=== PATIENT | female | born 1995 | race Caucasian/White ===

== ENCOUNTER 2024-02-26 14:33 | Outpatient (REF) | payer BC, SELFPAY | END 2024-02-26 14:34 | disposition home or self-care (01) | LOC: LAB 14:33 | PROVIDERS: PCP Obstetrics & Gynecology; Visit Provider Obstetrics & Gynecology | DX: Z01.419 Encounter for gynecological examination (general) (routine) without abnormal findings (principal) | CPT/HCPCS: 87624; G0145 ==

== ENCOUNTER 2024-08-01 06:31 | Outpatient (OUT) | payer BC, SELFPAY ==
--- NOTE | 2024-08-01 | MR_ITS ---
[facility] [id number] Patient Name: PRUDENCIO JARAMILLO MRN: [id number] date: 1995 Sex: F Assigned Patient Location: MRI Current Patient Location: Accession/Order Number: [id number] Exam Date: 08/01/2024 06:45 Report Date: 08/03/2024 08:21 At the request of: BELINDA ROWLAND Procedure: MR knee RT wo con EXAMINATION: MR knee RT wo con HISTORY: Rt Knee Pain ; acute medial knee pain and swelling COMPARISON: No relevant comparison available. TECHNIQUE: A complete multi-planar MRI was performed. FINDINGS: MEDIAL COMPARTMENT MEDIAL MENISCUS: No visible tear or significant degeneration. CARTILAGE: No visible defect. BONES: No marrow pathology, fracture, or significant arthropathy. MCL AND MEDIAL CAPSULE: Normal medial collateral ligament and medial capsule. LATERAL COMPARTMENT LATERAL MENISCUS: No visible tear or significant degeneration. CARTILAGE: No visible defect. BONES: No marrow pathology, fracture, or significant arthropathy. LCL/POSTEROLAT COMPLEX: Normal lateral collateral ligament, fascicles, lateral capsule and ligaments. ANTERIOR COMPARTMENT PATELLA: No marrow pathology, fracture, or significant arthropathy. CARTILAGE: No visible defect. TENDONS: Normal. EFFUSION: None. No synovitis or loose bodies. ACL: Normal appearing ligament. PCL: Normal appearing ligament. MENISCOFEMORAL: Normal meniscofemoral ligaments. OTHER: Negative. MR/MR knee RT wo con IMPRESSION: 1. No appreciable acute abnormality or significant degenerative changes. Electronically authenticated by: ALEE MARTELL Date: 08/03/2024 08:21
--- OUTSIDE RECORDS SUMMARY | 2024-08-01 06:34 | XMS_ITS | CCD ---
Author Organization [facility] [place] [facility] Providers Care Electrical Contacts Adjuster Name Role Phone Shanique Loomis Primary Care Physician Unavail able NARCISA ., DR MAGAÑA Admitting Unavailable NARCISA ., DR MAGAÑA Attending Unavailable REQUEST, DR NONE LISTED Primary Care Unavaila ble NARCISA ., DR MAGAÑA Consulting Unavailable ZIEBER, DR ALEE Badillo Consulting Unavailable NARCISA ., DR MAGAÑA Consulting Unavailable REQUEST, DR NONE LISTED Primary Care Unavaila ble NARCISA ., DR MAGAÑA Attending Unavailable NARCISA ., DR MAGAÑA Admitting Unavailable NARCISA ., DR MAGAÑA Admitting Unavailable NARCISA ., DR MAGAÑA Attending Unavailable REQUEST, DR NONE LISTED Primary Care Unavaila ble NARCISA ., DR MAGAÑA Consulting Unavailable ZIEBER, DR ALEE Badillo Consulting Unavailable KARASIK ., DR MOROCHO Consulting Unavailabl e REQUEST, DR NONE LISTED Primary Care Unavaila EUSEBIO Bhandari Attending Unavailable EUSEBIO SARABIA Admitting Unavailable ADOLFO, DR KIRSTEN Alvarado Consulting Unavailable NARCISA ., DR MAGAÑA Consulting Unavailable EUSEBIO SARABIA Consulting Unavailable TRIANA, LEA Consulting Unavailable REQUEST, DR NONE LISTED Primary Care Unavaila ble NARCISA ., DR MAGAÑA Attending Unavailable NARCISA ., DR MAGAÑA Admitting Unavailable NARCISA ., DR MAGAÑA Consulting Unavailable NARCISA ., DR MAGAÑA Attending Unavailable NARCISA ., DR MAGAÑA Admitting Unavailable REQUEST, DR NONE LISTED Primary Care Unavaila ble EMILIANO TARANGO Consulting Unavailable PAY ., DR NAVARRO Consulting Unavailable PAY ., DR NAVARRO Attending Unavailable PAY ., DR NAVARRO Admitting Unavailable REQUEST, DR NONE LISTED Primary Care Unavaila ble NARCISA ., DR MAGAÑA Admitting Unavailable NARCISA ., DR MAGAÑA Attending Unavailable REQUEST, DR NONE LISTED Primary Care Unavaila ble NARCISA ., DR MAGAÑA Consulting Unavailable NARCISA ., DR MAGAÑA Admitting Unavailable NARCISA ., DR MAGAÑA Attending Unavailable REQUEST, DR NONE LISTED Primary Care Unavaila ble NARCISA ., DR MAGAÑA Consulting Unavailable ZIEBER, DR ALEE Badillo Consulting Unavailable NARCISA ., DR MAGAÑA Admitting Unavailable NARCISA ., DR MAGAÑA Attending Unavailable REQUEST, DR NONE LISTED Primary Care Unavaila ble NARCISA ., DR MAGAÑA Consulting Unavailable NARCISA ., DR MAGAÑA Consulting Unavailable REQUEST, DR NONE LISTED Primary Care Unavaila ble NARCISA ., DR MAGAÑA Attending Unavailable NARCISA ., DR MAGAÑA Admitting Unavailable NARCISA ., DR MAGAÑA Consulting Unavailable REQUEST, DR NONE LISTED Primary Care Unavaila ble NARCISA ., DR MAGAÑA Attending Unavailable NARCISA ., DR MAGAÑA Admitting Unavailable NARCISA ., DR MAGAÑA Consulting Unavailable REQUEST, DR NONE LISTED Primary Care Unavaila ble NARCISA ., DR MAGAÑA Attending Unavailable NARCISA ., DR MAGAÑA Admitting Unavailable GRETA II, VINCE Consulting Unavailable FILUTZE, PADMINI Consulting Unavailable REQUEST, DR NONE LISTED Primary Care Unavaila ble HAY ., DR JASMINE Admitting Unavailable HAY ., DR JASMINE Attending Unavailable HAY ., DR JASMINE Consulting Unavailable NARCISA ., DR MAGAÑA Procedure Practitioner Unavail able NARCISA ., DR MAGAÑA Consulting Unavailable REQUEST, DR NONE LISTED Primary Care Unavaila ble NARCISA ., DR MAGAÑA Attending Unavailable NARCISA ., DR MAGAÑA Admitting Unavailable LENA, MANNY Consulting Unavailable TRINH, CARRINGTON Consulting Unavailable GEMBUS, MAURI Consulting Unavailable NARCISA ., DR MAGAÑA Admitting Unavailable NARCISA ., DR MAGAÑA Attending Unavailable REQUEST, DR NONE LISTED Primary Care Unavaila ble NARCISA ., DR MAGAÑA Consulting Unavailable NARCISA ., DR MAGAÑA Admitting Unavailable NARCISA ., DR MAGAÑA Attending Unavailable REQUEST, DR NONE LISTED Primary Care Unavaila ble WEST, DR KIRSTEN Alvarado Consulting Unavailable NARCISA ., DR MAGAÑA Consulting Unavailable JAMEL DELGADO Attending Unavailable JAMEL DELGADO Admitting Unavailable REQUEST, NONE LISTED Primary Care Unavaila ble NARCISA ., DR MAGAÑA Admitting Unavailable NARCISA ., DR MAGAÑA Attending Unavailable REQUEST, DR NONE LISTED Primary Care Unavaila ble WEST, DR KIRSTEN Alvarado Consulting Unavailable NARCISA ., DR MAGAÑA Consulting Unavailable Carol Gutierrez Primary Care Physician [facility] 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 Mirza Primary Care Provider KEMI MIRZA Primary Care Unavailable ELSA SCOTT Admitting Unavailable ELSA SCOTT Attending Unavailable IMRZA MCMULLEN Primary Care Unavailable ELIZABETH CRUZ Primary Care Physician Barak Greer Attending Unavailable VLADISLAV, SHANIQUE Primary Care Unavailable ALEXEI SON Attending Unavailable VLADISLAV, SHANIQUE Primary Care Unavailable Madhu Mcnamara Attending Unavailable Jadon SANTANA Attending Unavailable ALEXEI SON Admitting Unavailable ALEXEI SON Attending Unavailable AUTUMN Cruz Primary Care Provider AUTUMN Cruz Attending Provider MARK ROSALES Attending Unavailable Nancy, AUTUMN Johnson Primary Care Provider DAHLIA Alvarado Attending Provider Elizabeth Cruz Attending Unavailable Elizabeth Cruz Admitting Unavailable Elizabeth Cruz Primary Care Unavailable Jessie Alvarado Admitting Unavailable Jessie Alvarado Attending Unavailable Elizabeth Cruz Primary Care Unavailable Allergies Allergy Classification Reported Allergen(s) Allergy Type Date of Onset Reaction(s) Facility (9 sources) Amoxicillin; Translations: [amoxicillin] [facility] Penicillins; Translations: [penicillins] Drug allergy 06-30-2014 [facility] (1 source) Amoxicillin Drug Allergy [facility] (1 source) Penicillin Drug Allergy [facility] (1 source) Amoxicillin Drug Allergy 06-11-2024 [facility] Medications Current Medications Medication Drug Class(es) Dates Sig (Normalized) Sig (Original) acetaminophen 500 mg oral tablet (2 sources) take 1 tablet by mouth every six hours as needed for pain acetaminophen (TYLENOL) 500 MG tablet Take 1 tablet by mouth every 6 hours as needed for Pain 0 Active azithromycin 500 mg oral tablet (2 sources) Macrolide Antimicrobial Start: 12-19-2023 End: 12-24-2023 take 1 tablet by mouth once daily Zithromax 500 mg oral tablet 500 mg = 1 tab(s), Oral, Daily, X 5 day(s), # 5 tab(s), Refills(s) 0, Pharmacy: [facility]/pharmacy #[id number], 155, cm, 12/19/23 12:54:00 EDT, Height/Length Dosing, 127.3, kg, 12/19/23 12:54:00 EDT, Weight Dosing Start Date: 12/19/23 Stop Date: 12/24/23 Status: Ordered cephalexin 500 mg oral capsule (1 source) Cephalosporin Antibacterial Start: 05-06-2022 End: 05-11-2022 take 1 capsule by mouth three times daily Keflex 500 mg Cap 500 mg = 1 cap(s), Oral, TID, X 5 day(s), # 15 cap(s), Refills(s) 0 Start Date: 05/06/22 Stop Date: 05/11/22 Status: Ordered dicyclomine hydrochloride 20 mg oral tablet (2 sources) Anticholinergic Start: 05-18-2023 take 1 tablet by mouth four times daily as needed for pain dicyclomine (BENTYL) 20 MG tablet Take 1 tablet by mouth 4 times daily as needed (abdominal pain) 20 tablet 0 05/18/2023 Active famotidine 20 mg oral tablet (2 sources) Histamine-2 Receptor Antagonist Start: 05-06-2022 take 1 tablet by mouth once daily Pepcid 20 mg Tab 20 mg = 1 tab(s), Oral, Daily, # 14 tab(s), Refills(s) 0 Start Date: 05/06/22 Status: Ordered ibuprofen 800 mg oral tablet (2 sources) Nonsteroidal Anti-inflammatory Drug Start: 03-20-2018 take 1 tablet by mouth every eight hours as needed for pain ibuprofen (ADVIL;MOTRIN) 800 MG tablet Take 1 tablet by mouth every 8 hours as needed for Pain 120 tablet 3 03/20/2018 Active naproxen 500 mg oral tablet (2 sources) Nonsteroidal Anti-inflammatory Drug Start: 06-11-2024 take 500 mg by mouth twice daily Naproxen Active 500 MG PO Twice daily June 11, 2024 12:00am Start: 04-14-2023 take 1 tablet by willie twice daily naproxen 500 mg Tab 500 mg = 1 tab(s), Oral, BID, Take one tab by mouth two times a day, # 14 tab(s), Refills(s) 0, Pharmacy: [facility]/pharmacy #[id number], 155, cm, 04/14/23 13:45:00 EDT, Height/Length Dosing, 120, kg, 04/14/23 13:45:00 EDT, Weight Dosing Start Date: 04/14/23 Status: Ordered [place] (No Known Home Meds) (1 source) Start: 06-11-2024 [place] (No Kn own Home Meds) Active June 11, 2024 12:00am predniSONE 20 mg oral tablet (2 sources) Start: 12-19-2023 End: 12-24-2023 take 2 tablets by mouth once daily predniSONE 20 mg Tab 40 mg = 2 tab(s), Oral, Daily, X 5 day(s), # 10 tab(s), Refills(s) 0, Pharmacy: [facility]/pharmacy #[id number], 155, cm, 12/19/23 12:54:00 EDT, Height/Length Dosing, 127.3, kg, 12/19/23 12:54:00 EDT, Weight Dosing Start Date: 12/19/23 Stop Date: 12/24/23 Status: Ordered Completed/Discontinued Medications Medication Drug Class(es) Dates Sig (Normalized) Sig (Original) aluminum & magnesium hydroxide-simethic one (MAALOX) 30 mL, lidocaine viscous hcl (XYLOCAINE) 5 mL (GI COCKTAIL) (1 source) Start: 05-18-2023 End: 05-18-2023 aluminum & magnesium hydroxide-simethic one (MAALOX) 30 mL, lidocaine viscous hcl (XYLOCAINE) 5 mL (GI COCKTAIL) citalopram 20 mg oral tablet (7 sources) Serotonin Reuptake Inhibitor Start: 10-21-2017 End: 12-04-2023 take 1 tablet by mouth once daily Citalopram (Celexa) 20 mg Tablet Discontinued 20 MG PO Daily September 04, 2018 1:00am December 04, 2023 2:39pm etodolac 400 mg oral tablet (2 sources) Nonsteroidal Anti-inflammatory Drug Start: 05-18-2023 End: 05-24-2023 take 1 tablet by mouth twice daily etodolac (LODINE) 400 MG tablet Take 1 tablet by mouth 2 times daily 14 tablet 0 05/18/2023 05/24/2023 Discontinued (LIST CLEANUP) famotidine (PEPCID) 20 mg in sodium chloride (PF) 0.9 % 10 mL injection (1 source) Start: 05-18-2023 End: 05-18-2023 famotidine (PEPCID) 20 mg in sodium chloride (PF) 0.9 % 10 mL injection ferrous sulfate 325 mg oral tablet (2 sources) Start: 03-13-2018 End: 05-24-2023 take 1 tablet by mouth three times daily at mealtime ferrous sulfate (MARK-JADIEL) 325 (65 Fe) MG tablet Take 1 tablet by mouth 3 times daily (with meals) 90 tablet 0 03/13/2018 05/24/2023 Discontinued (LIST CLEANUP) iopamidol (ISOVUE-300) 61 % injection 70 mL (1 source) Start: 05-18-2023 End: 05-18-2023 iopamidol (ISOVUE-300) 61 % injection 70 mL 1 ml ketorolac tromethamine 30 mg/ml cartridge (1 source) Nonsteroidal Anti-inflammatory Drug, Cyclooxygenase Inhibitor Start: 05-18-2023 End: 05-18-2023 ketorolac (TORADOL) injection 30 mg 1 ml morphine sulfate 4 mg/ml injection (1 source) Opioid Agonist Start: 05-18-2023 End: 05-18-2023 morphine sulfate (PF) injection 4 mg 2 ml ondansetron 2 mg/ml injection (5 sources) Serotonin-3 Receptor Antagonist Start: 05-18-2023 End: 05-18-2023 ondansetron (ZOFRAN) injection 4 mg Start: 05-18-2023 End: 05-24-2023 take 1 tablet by mouth three times daily as needed for nausea ondansetron (ZOFRAN-ODT) 4 MG disintegrating tablet Take 1 tablet by mouth 3 times daily as needed for Nausea or Vomiting 21 tablet 0 05/18/2023 05/24/2023 Discontinued (LIST CLEANUP) Start: 05-06-2022 take 1 tablet by willie th every eight hours as needed for nausea Zofran 4 mg Tab 4 mg = 1 tab(s), Oral, q8hr, PRN Nausea/Vomiting, # 12 tab(s), Refills(s) 0 Start Date: 05/06/22 Status: Ordered sertraline 25 mg oral tablet (4 sources) Serotonin Reuptake Inhibitor Start: 12-04-2023 End: 06-11-2024 take 25 mg by mouth once daily Sertraline Discontinued 25 MG PO Daily December 04, 2023 1:00am June 11, 2024 9:44am 50 ml sodium chloride 9 mg/ml injection (1 source) Start: 05-18-2023 End: 05-18-2023 sodium chloride 0.9 % bolus 1,000 mL Problems Active Problems Problem Classification Problem Date Documented Date Episodic/Chronic Anxiety disorders (9 sources) Anxiety disorder, unspecified; Translations: [Generalized anxiety disorder] Onset: 11-14-2022 12-04-2023 Chronic Biliary tract disease (5 sources) Cholelithiasis without obstruction; Translations: [Calculus of gallbladder without cholecystitis without obstruction] Onset: 05-18-2023 Episodic Conditions associated with dizziness or vertigo (4 sources) Dizziness and giddiness; Translations: [DIZZINESS AND GIDDINESS] Onset: 11-13-2022 Episodic Contraceptive and procreative management (5 sources) Encounter for sterilization; Translations: [ENCOUNTER FOR STERILIZATION] Onset: 11-01-2022 Episodic Diverticulosis and diverticulitis (4 sources) Diverticulitis 12-15-2019 Chronic Female infertility (2 sources) Oligo-ovulation; 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 Menstrual disorders (6 sources) Irregular menstruation, unspecified; Translations: [Oligomenorrhea] Onset: 06-30-2014 Chronic Mood disorders (12 sources) Depressive disorder; Translations: [Major depressive disorder] Onset: 12-28-2023 09-19-2016 Chronic Mood disorders (1 source) Mood disorders; Translations: [DEPRESSION UNSPECIFIED] Onset: 11-14-2022 Nausea and vomiting (2 sources) Nausea and vomiting; Translations: [Nausea with vomiting, unspecified] Onset: 05-06-2022 Episodic Other complications of ; puerperium affecting management of mother (1 source) Obesity complicating childbirth; Translations: [OBESITY COMPLICATING CHILDBIRTH] Onset: 10-03-2022 Chronic Other complications of ; puerperium affecting management of mother (4 sources) Spinal and epidural anesthesia-induced headache during the puerperium; Translations: [SP EPID ANES-IND H/A DUR PUERPERIUM] Onset: 09-22-2022 Episodic Other complications of (5 sources) Maternal care for excessive growth, third trimester, not applicable or unspecified; Translations: [MAT CARE EXCSS FTL GRTH 3RD TRI UNS] Onset: 08-07-2022 Episodic Other female genital disorders (2 sources) Abnormal uterine bleeding; Translations: [Other specified abnormal uterine and vaginal bleeding] 03-20-2018 Chronic Other nervous system disorders (4 sources) Loss of taste 10-11-2020 Episodic Other non-traumatic joint disorders (3 sources) Pain in left knee; Translations: [Pain in joint, lower leg] Onset: 06-11-2024 06-11-2024 Episodic Other nutritional; endocrine; and metabolic disorders (5 sources) Morbid (severe) obesity due to excess calories; Translations: [Morbid obesity] Onset: 10-03-2022 12-04-2023 Chronic Other nutritional; endocrine; and metabolic disorders (7 sources) Morbid obesity; Translations: [Morbid (severe) obesity due to excess calories] Onset: 03-14-2018 03-14-2018 Chronic Other nutritional; endocrine; and metabolic disorders (4 sources) Body mass index 40+ - severely obese; Translations: [Body mass index (BMI) 50.0-59.9, adult] 12-04-2023 Chronic Other nutritional; endocrine; and metabolic disorders (4 sources) Body mass index (BMI) 50.0-59.9, adult; Translations: [Body Mass Index 50.0-59.9, adult] Onset: 12-28-2023 12-04-2023 Chronic Other and delivery including normal (3 sources) Single live ; Translations: [ state, incidental] Onset: 02-24-2022 Episodic Other upper respiratory disease (1 source) Nasal congestion; Translations: [Nasal congestion] Onset: 12-19-2023 Episodic Other upper respiratory disease (2 sources) Congestion of nasal sinus 12-19-2023 Episodic Other upper respiratory infections (7 sources) Acute upper respiratory infection; Translations: [Acute pharyngitis] Onset: 12-19-2023 10-11-2020 Episodic Otitis media and related conditions (3 sources) Otitis media; Translations: [Otitis media, unspecified, right ear] Onset: 12-19-2023 Episodic Previous (3 sources) Maternal care for low transverse scar from previous delivery; Translations: [MAT CARE LW TRANS SCAR PREV C/S DEL] Onset: 09-18-2022 Episodic Residual codes; unclassified (1 source) 39 weeks gestation of ; Translations: [39 WEEKS GESTATION OF ] Onset: 10-03-2022 Episodic Skin and subcutaneous tissue infections (4 sources) Pilonidal cyst 08-15-2017 Episodic Spondylosis; intervertebral disc disorders; other back problems (8 sources) Low back pain; Translations: [Lumbar radiculopathy] 12-01-2019 Episodic Sprains and strains (2 sources) Sprain of wrist; Translations: [Unspecified sprain of unspecified wrist, initial encounter] Onset: 04-14-2023 Episodic Unclassified (1 source) CONTACT W/AND (SUSP) EXPOS COVID-19; Translations: [CONTACT W/AND (SUSP) EXPOS COVID-19] Onset: 11-14-2022 Urinary tract infections (1 source) Urinary tract infectious disease; Translations: [Urinary tract infection, site not specified] Onset: 05-06-2022 Episodic Past or Other Problems Problem Classification Problem Date Documented Date Episodic/Chronic Abdominal pain (2 sources) Epigastric pain; Translations: [Epigastric pain] Onset: 05-06-2022 Episodic Immunizations and screening for infectious disease (1 source) Contact with and (suspected) exposure to infections with a predominantly sexual mode of transmission; Translations: [CONTCT W EXPOS INFECT SEXUAL TRNSMS] Onset: 09-02-2022 Episodic Other circulatory disease (2 sources) Borderline blood pressure; Translations: [Elevated blood-pressure reading, without diagnosis of hypertension] Onset: 03-18-2018 03-18-2018 Episodic Other complications of (4 sources) Decreased movements, third trimester, not applicable or unspecified; Translations: [DECR MOVEMENTS 3RD TRI NA/UNS] Onset: 08-21-2022 Episodic Other complications of (1 source) Other specified related conditions, third trimester; Translations: [OTH SPEC PREG RELATED COND 3RD TRI] Onset: 08-23-2022 Episodic Other complications of (4 sources) Vomiting of , unspecified; Translations: [VOMITING OF UNSPECIFIED] Onset: 04-01-2022 Episodic Other female genital disorders (4 sources) Other specified noninflammatory disorders of vagina; Translations: [OTH SPEC NONINFLAMMATORY D/O VAGINA] Onset: 08-29-2022 Episodic Other screening for suspected conditions (not mental disorders or infectious disease) (14 sources) Encounter for other screening follow-up; Translations: [Encounter for screening for diabetes mellitus] Onset: 03-15-2022 Episodic Polyhydramnios and other problems of amniotic cavity (4 sources) Other specified disorders of amniotic fluid and membranes, second trimester, not applicable or unspecified; Translations: [OTH D/O AMNIO FL MEMB 2ND TRI UNS] Onset: 06-14-2022 Episodic Residual codes; unclassified (1 source) 34 weeks gestation of ; Translations: [34 WEEKS GESTATION OF ] Onset: 08-23-2022 Episodic Residual codes; unclassified (4 sources) Procedure and treatment not carried out for other reasons; Translations: [PROC AND TX NOT CARRIED OUT OTH REASONS] Onset: 08-21-2022 Episodic Residual codes; unclassified (1 source) 33 weeks gestation of ; Translations: [33 WEEKS GESTATION OF ] Onset: 08-09-2022 Episodic Residual codes; unclassified (1 source) 25 weeks gestation of ; Translations: [25 WEEKS GESTATION OF ] Onset: 06-18-2022 Episodic Residual codes; unclassified (1 source) 14 weeks gestation of ; Translations: [14 WEEKS GESTATION OF ] Onset: 04-05-2022 Episodic Screening and history of mental health and substance abuse codes (3 sources) Personal history of nicotine dependence; Translations: [Tobacco use and exposure - finding] Onset: 03-14-2018 03-14-2018 Episodic Results Test Name Value Interpretation Reference Range Facility XR knee LT 4V*on 06-11-2024 XR knee LT 4V* [facility] [place] [address] XRay Report Signed Patient: Prudencio Jaramillo MR#: [id number] : 1995 Acct:[id number] Age/Sex: 28 / F ADM Date: 06/11/24 Loc: [id number] Room: Type: [facility] Attending Dr: Jessie Alvarado APRN Copies to: Jessie Alvarado APRN Ordering Provider: Jessie Alvarado APRN Date of Service: 06/11/24 XR/XR knee LT 4V*: M25.562 - Pain in left knee LEFT KNEE - 4 views CLINICAL HISTORY: Bent down felt pop with instant pain left knee. COMPARISON: None FINDINGS: No knee joint effusion. No acute bony process. Joint spaces appear maintained. XR/XR knee LT 4V* IMPRESSION: NO ACUTE BONY PROCESS. Impression dictated by: Tk Burnett Jr., D.O.06/11/2024 11:05 AM Dictation Location: [place] [address] Transcribed By: [facility] 06/11/24 1105 Dictated By: Tk Burnett Jr, DO 06/11/24 1103 Signed By: 06/11/24 1105 Normal [facility] Alanine aminotransferase [En zymatic activity/volume] in Serum or PlasmaOrdered By: Elizabeth Cruz on 12-28-2023 ALT [Catalytic activity/Vol] 19 U/L Normal 7-52 [facility] Comment on above: Performed By: #### T SH3, LIPID, CBC, CMP wRFX A1C #### [facility] [address] [id number] [place] Albumin [Mass/volume] in Ser um or Plasma by Bromocresol green (BCG) dye binding methoOrdered By: Elizabeth Cruz on 12-28-2023 Albumin BCG dye [Mass/Vol] 4.2 g/dL 3.5-5.7 [facility] Alkaline phosphatase [Enzyma tic activity/volume] in Serum or PlasmaOrdered By: Elizabeth Cruz on 12-28-2023 ALP [Catalytic activity/Vol] 75 U/L Normal 34-104 [facility] Comment on above: Performed By: #### T SH3, LIPID, CBC, CMP wRFX A1C #### [facility] [address] [id number] [place] Aspartate aminotransferase [ Enzymatic activity/volume] in Serum or PlasmaOrdered By: Elizabeth Cruz on 12-28-2023 AST [Catalytic activity/Vol] 12 U/L Low 13-39 [facility] Comment on above: Performed By: #### T SH3, LIPID, CBC, CMP wRFX A1C #### [address] Automated basophil %Ordered By: Elizabeth Cruz on 12-28-2023 Basophils/100 WBC (Bld) 1.1 % Normal . [facility] Comment on above: Performed By: #### T SH3, LIPID, CBC, CMP wRFX A1C #### [address] Automated basophil countOrde red By: Elizabeth Curz on 12-28-2023 Basophils (Bld) [#/Vol] 0.1 10*3/uL Normal 0.0-0.2 [facility] Comment on above: Result Comment: PERF ORMED BY: [place] [address] PATHOLOGIST [employer]ANGER TERESO CANDELARIA M.D. Performed By: #### T SH3, LIPID, CBC, CMP wRFX A1C #### [address] Automated blood monocyte cou ntOrdered By: Elizabeth Cruz on 12-28-2023 Monocytes (Bld) [#/Vol] 0.6 10*3/uL Normal 0.0-0.8 [facility] Comment on above: Performed By: #### T SH3, LIPID, CBC, CMP wRFX A1C #### [address] Automated eosinophil %Ordere d By: Elizabeth Cruz on 12-28-2023 Eosinophils/100 WBC (Bld) 2.3 % Normal . [facility] Comment on above: Performed By: #### T SH3, LIPID, CBC, CMP wRFX A1C #### [address] Automated eosinophil countOr dered By: Elizabeth Cruz on 12-28-2023 Eosinophils (Bld) [#/Vol] 0.2 10*3/uL Normal 0.0-0.45 [facility] Comment on above: Performed By: #### T SH3, LIPID, CBC, CMP wRFX A1C #### [address] Automated monocyte %Ordered By: Elizabeth Cruz on 12-28-2023 Monocytes/100 WBC (Bld) 5.9 % Normal . [facility] Comment on above: Performed By: #### T SH3, LIPID, CBC, CMP wRFX A1C #### [address] Automated neutrophil %Ordere d By: Elizabeth Cruz on 12-28-2023 Neutrophils/100 WBC (Bld) 60.3 % Normal . [facility] Comment on above: Performed By: #### T SH3, LIPID, CBC, CMP wRFX A1C #### [address] Bilirubin.total [Mass/volume ] in Serum or PlasmaOrdered By: Elizabeth Cruz on 12-28-2023 Bilirubin [Mass/Vol] 0.4 mg/dL Normal 0.3-1.0 [facility] Comment on above: Performed By: #### T SH3, LIPID, CBC, CMP wRFX A1C #### [address] CMP with reflex to A1Con Albumin [Mass/Vol] 4.2 g/dL Normal 3.5-5.7 [facility] Comment on above: Performed By: #### T SH3, LIPID, CBC, CMP wRFX A1C #### [place] [address] [place] GFR/1.73 sq M.predicted MDRD (S/P/Bld) [Vol rate/Area] mL/min/{1.73_m2} Normal [facility] Comment on above: Performed By: #### T SH3, LIPID, CBC, CMP wRFX A1C #### [address] [place] [address] [place] Calcium [Mass/volume] in Ser um or PlasmaOrdered By: Elizabeth Cruz on 12-28-2023 Calcium [Mass/Vol] 9.4 mg/dL Normal 8.6-10.3 [facility] Comment on above: Performed By: #### T SH3, LIPID, CBC, CMP wRFX A1C #### [facility] [address] [place] [address] [place] Carbon dioxide, total [Moles /volume] in Serum or PlasmaOrdered By: Elizabeth Cruz on 12-28-2023 CO2 [Moles/Vol] 27.3 mmol/L Normal 21.0-31.0 [facility] Comment on above: Performed By: #### T SH3, LIPID, CBC, CMP wRFX A1C #### [facility] [address] [place] [address] [place] Chloride [Moles/volume] in S mar or PlasmaOrdered By: Elizabeth Cruz on 12-28-2023 Chloride [Moles/Vol] 107 mmol/L Normal 98-107 [facility] Comment on above: Performed By: #### T SH3, LIPID, CBC, CMP wRFX A1C #### [facility] [address] [place] [address] [place] Cholesterol [Mass/volume] in Serum or PlasmaOrdered By: Elizabeth Cruz on 12-28-2023 Cholesterol [Mass/Vol] 196 mg/dL Normal 140-200 [facility] Comment on above: Chol less than 200 m g/dl low riskChol 201-239 mg/dl borderline riskChol 240 mg/dl and greater high risk Result Comment: Chol less than 200 mg/dl low risk Chol 201-239 mg/dl borderline risk Chol 240 mg/dl and greater high risk Performed By: #### T SH3, LIPID, CBC, CMP wRFX A1C #### [facility] [address] [place], [place] [id number] [place] Cholesterol in LDL Calc [Mas s/Vol]Ordered By: Elizbaeth Cruz on 12-28-2023 Cholesterol in LDL [Mass/Vol] 113 mg/dL 0-100 [facility] Comment on above: LDL ATP III CLASSIFI CATIONLDL less than 100 mg/dL OptimalLDL 100-129 mg/dL Near or above optimalLDL 130-159 mg/dL Borderline highLDL 160-189 mg/dL HighLDL greater than 189 mg/dL Very high Cholesterol in VLDL Calc [Ma ss/Vol]Ordered By: Elizabeth Cruz on 12-28-2023 Cholesterol in VLDL [Mass/Vol] 39 mg/dL [facility] Complete Blood Count Auto Di ffon 12-28-2023 Mean Corpuscular HGB Conc 31.6 g/dL Low 32.0-35.0 [facility] Comment on above: Performed By: #### T SH3, LIPID, CBC, CMP wRFX A1C #### [facility] [address] [place] [address] NRBC% 0.0 /100{WBC} Normal 0-0.5 [facility] Comment on above: Performed By: #### T SH3, LIPID, CBC, CMP wRFX A1C #### [facility] [address] [place] [address] Creatinine [Mass/volume] in Serum or PlasmaOrdered By: Elizabeth Cruz on 12-28-2023 Creatinine [Mass/Vol] 0.58 mg/dL Low 0.60-1.20 [facility] Comment on above: Performed By: #### T SH3, LIPID, CBC, CMP wRFX A1C #### [facility] [address] [place] [address] Erythrocyte distribution wid th [Ratio] by Automated countOrdered By: Elizabeth Cruz on 12-28-2023 Erythrocyte distribution width (RBC) [Ratio] 14.4 % Normal 11.9-15.3 [facility] Comment on above: Performed By: #### T SH3, LIPID, CBC, CMP wRFX A1C #### [facility] [address] [place] [address] [place] Erythrocytes [#/volume] in B lood by Automated countOrdered By: Elizabeth Cruz on 12-28-2023 RBC (Bld) [#/Vol] 5.22 10*6/uL High 3.60-5.00 [facility] Comment on above: Performed By: #### T SH3, LIPID, CBC, CMP wRFX A1C #### [facility] [address] [place] [address] Glucose [Mass/volume] in Ser um or PlasmaOrdered By: Elizabeth Cruz on 12-28-2023 Glucose [Mass/Vol] 85 mg/dL Normal 70-100 [facility] Comment on above: Performed By: #### T SH3, LIPID, CBC, CMP wRFX A1C #### [address] Hematocrit [Volume Fraction] of Blood by Automated countOrdered By: Elizabeth Cruz on 12-28-2023 Hematocrit (Bld) [Volume fraction] 42.5 % Normal 34.0-46.4 [facility] Comment on above: Performed By: #### T SH3, LIPID, CBC, CMP wRFX A1C #### [address] Hemoglobin [Mass/volume] in BloodOrdered By: Elizabeth Cruz on 12-28-2023 Hemoglobin (Bld) [Mass/Vol] 13.4 g/dL Normal 11.8-15.4 [facility] Comment on above: Performed By: #### T SH3, LIPID, CBC, CMP wRFX A1C #### [address] Leukocytes [#/volume] correc carie for nucleated erythrocytes in Blood by Automated counOrdered By: Elizabeth Cruz on 12-28-2023 WBC corrected for nucl RBC Auto (Bld) [#/Vol] 9.6 10*3/uL 3.8-11.6 [facility] Leukocytes [#/volume] in Blo od by Automated countOrdered By: Elizabeth Cruz on 12-28-2023 WBC (Bld) [#/Vol] 9.6 10*3/uL Normal 3.8-11.6 [facility] Comment on above: Performed By: #### T SH3, LIPID, CBC, CMP wRFX A1C #### [address] Lipid Panelon 12-28-2023 LDL Cholesterol,Calculated 113 mg/dL High 0-100 [facility] Comment on above: Result Comment: LDL ATP III CLASSIFICATION LDL less than 100 mg/dL Optimal LDL 100-129 mg/dL Near or above optimal LDL 130-159 mg/dL Borderline high LDL 160-189 mg/dL High LDL greater than 189 mg/dL Very high Performed By: #### T SH3, LIPID, CBC, CMP wRFX A1C #### [address] Triglyceride w/Reflex 197 mg/dL High 0-149 [facility] Comment on above: Result Comment: TRIG ATP III CLASSIFICATION TRIG less than 150 mg/dL Normal TRIG 150-199 mg/dL Borderline high TRIG 200-500 mg/dL High TRIG greater than 500 mg/dL Very high Standard traceable to the Center for Disease Conrtrol and Prevention (CDC) test method. Performed By: #### T SH3, LIPID, CBC, CMP wRFX A1C #### [address] VLDL CHOLESTEROL 39 mg/dL Normal [facility] Comment on above: Performed By: #### T SH3, LIPID, CBC, CMP wRFX A1C #### [address] Lymphocytes [#/volume] in Bl ood by Automated countOrdered By: Elizabeth Cruz on 12-28-2023 Lymphocytes (Bld) [#/Vol] 2.9 10*3/uL Normal 1.00-4.8 [facility] Comment on above: Performed By: #### T SH3, LIPID, CBC, CMP wRFX A1C #### [place] [address] [place] Lymphocytes/100 leukocytes i n Blood by Automated countOrdered By: Elizabeth Cruz on 12-28-2023 Lymphocytes/100 WBC (Bld) 30.4 % Normal . [facility] Comment on above: Performed By: #### T SH3, LIPID, CBC, CMP wRFX A1C #### [place] [address] [place] MCH [Entitic mass] by Automa carie countOrdered By: Elizabeth Cruz on 12-28-2023 MCH (RBC) [Entitic mass] 25.8 pg Normal 24.7-34.3 [facility] Comment on above: Performed By: #### T SH3, LIPID, CBC, CMP wRFX A1C #### [facility] [address] [place] [address] MCHC Auto (RBC) [Mass/Vol]Or dered By: Elizabeth Cruz on 12-28-2023 MCHC (RBC) [Mass/Vol] 31.6 g/dL 32.0-35.0 [facility] MCV [Entitic volume] by Auto mated countOrdered By: Elizabeth Cruz on 12-28-2023 MCV (RBC) [Entitic vol] 81.5 fL Normal 80-100 [facility] Comment on above: Performed By: #### T SH3, LIPID, CBC, CMP wRFX A1C #### [facility] [address] [place] [address] Neutrophils [#/volume] in Bl ood by Automated countOrdered By: Elizabeth Cruz on 12-28-2023 Neutrophils (Bld) [#/Vol] 5.8 10*3/uL Normal 1.8-7.7 [facility] Comment on above: Performed By: #### T SH3, LIPID, CBC, CMP wRFX A1C #### [address] No Panel InformationOrdered By: Elizabeth Cruz on 12-28-2023 Estimated GFR (CKD-EPI) > 60.0 mL/Min [facility] Creatinine Clearance (Chem N/A [facility] Nucleated erythrocytes [Pres ence] in Blood by Automated countOrdered By: Elizabeth Cruz on 12-28-2023 Nucleated RBC Auto Ql (Bld) 0.0 /100{WBC} 0-0.5 [facility] Platelet mean volume [Entiti c volume] in Blood by Automated countOrdered By: Elizabeth Cruz on 12-28-2023 Platelet mean volume (Bld) [Entitic vol] 8.2 fL Normal 6.3-10.7 [facility] Comment on above: Performed By: #### T SH3, LIPID, CBC, CMP wRFX A1C #### [facility] [address] [place] [address] Platelets [#/volume] in Bloo d by Automated countOrdered By: Elizabeth Cruz on 12-28-2023 Platelets (Bld) [#/Vol] 310 10*3/uL Normal 150-450 [facility] Comment on above: Performed By: #### T SH3, LIPID, CBC, CMP wRFX A1C #### [address] Potassium [Moles/volume] in Serum or PlasmaOrdered By: Elizabeth Cruz on 12-28-2023 Potassium [Moles/Vol] 4.3 mmol/L Normal 3.5-5.1 [facility] Comment on above: Performed By: #### T SH3, LIPID, CBC, CMP wRFX A1C #### [address] Protein [Mass/volume] in Ser um or PlasmaOrdered By: Elizabeth Cruz on 12-28-2023 Protein [Mass/Vol] 7.1 g/dL Normal 6.4-8.9 [facility] Comment on above: Performed By: #### T SH3, LIPID, CBC, CMP wRFX A1C #### [address] Serum globulin measurement b y calculation (mass/volume)Ordered By: Elizabeth Cruz on 12-28-2023 Globulin (S) [Mass/Vol] 2.9 g/dL [facility] Comment on above: Performed By: #### T SH3, LIPID, CBC, CMP wRFX A1C #### [address] Serum or plasma albumin/glob ulin mass ratioOrdered By: Elizabeth Cruz on 12-28-2023 Albumin/Globulin [Mass ratio] 1.4 {ratio} [facility] Comment on above: Performed By: #### T SH3, LIPID, CBC, CMP wRFX A1C #### [facility] [address] Serum or plasma anion gap de terminationOrdered By: Elizabeth Cruz on 12-28-2023 Anion gap [Moles/Vol] 10.0 mmol/L Normal 6.0-15.0 [facility] Comment on above: Performed By: #### T SH3, LIPID, CBC, CMP wRFX A1C #### [facility] [address] Serum or plasma high density lipoprotein (HDL) cholesterol measurementOrdered By: Elizabeth Cruz on 12-28-2023 Cholesterol in HDL [Mass/Vol] 44 mg/dL Normal 23-92 [facility] Comment on above: HDL CHOL ATP-III CLA SSIFICATION Cardiovascular RiskHDL > or equal to 60 mg/dL LOWHDL < 40 mg/dL HIGH Result Comment: HDL CHOL ATP-III CLASSIFICATION Cardiovascular Risk HDL > or equal to 60 mg/dL LOW HDL < 40 mg/dL HIGH Performed By: #### T SH3, LIPID, CBC, CMP wRFX A1C #### [address] Serum or plasma total choles terol/high density lipoprotein (HDL) cholesterol mass ratOrdered By: Elizabeth Cruz on 12-28-2023 Cholesterol.total/Chol esterol in HDL [Mass ratio] 4.5 {ratio} Normal <5.0 [facility] Comment on above: Performed By: #### T SH3, LIPID, CBC, CMP wRFX A1C #### [address] Sodium [Moles/volume] in Ser um or PlasmaOrdered By: Elizabeth Cruz on 12-28-2023 Sodium [Moles/Vol] 140 mmol/L Normal 136-145 [facility] Comment on above: Performed By: #### T SH3, LIPID, CBC, CMP wRFX A1C #### [address] Thyrotropin [Units/volume] i n Serum or PlasmaOrdered By: Elizabeth Cruz on 12-28-2023 TSH Qn 1.14 m[IU]/L Normal 0.45-5.33 [facility] Comment on above: Result Comment: PERF ORMED BY: [place] [address] PATHOLOGIST [employer] TERESO CANDELARIA M.D. Performed By: #### T SH3, LIPID, CBC, CMP wRFX A1C #### [facility] [address] Triglyceride [Mass/volume] i n Serum or PlasmaOrdered By: Elizabeth Cruz on 12-28-2023 Triglyceride [Mass/Vol] 197 mg/dL 0-149 [facility] Comment on above: TRIG ATP III CLASSIF ICATIONTRIG less than 150 mg/dL NormalTRIG 150-199 mg/dL Borderline highTRIG 200-500 mg/dL High TRIG greater than 500 mg/dL Very highStandard traceable to the Center for Disease Conrtrol and Prevention (CDC) test method. Urea nitrogen [Mass/volume] in Serum or PlasmaOrdered By: Elizabeth Cruz on 12-28-2023 Urea nitrogen [Mass/Vol] 12 mg/dL Normal 7-25 [facility] Comment on above: Performed By: #### T SH3, LIPID, CBC, CMP wRFX A1C #### [address] Grp A Strp PCRon 12-20-2023 Grp A Strp Intrl Ctrl Pass Normal [facility] Comment on above: Performed By: #### 1 [id number] ####[facility] [id number] [place] [address] S. pyogenes DNA HILDA+probe Ql (Throat) Negative Normal [facility] Comment on above: Result Comment: Test ing performed using DNA amplification. Performed By: #### 1 [id number] ####[facility] [id number] [place] [address] Family Medicine Office/Clini c Noteon 12-19-2023 Family Medicine Office/Clinic Note Chief Complaint Current pt cough, fever, chills, MCGEE, ear pain, nausea, dizziness, sore throat HPI Staff 28 yo female here with poss strep Symptoms began last night Complains of sore throat, fever, chills, vomiting, dizziness, headache, ear pain, Pt has been taking tylenol, mucous relief History of Present Illness Reviewed and agree with above documented HPI by medical records tech. Portions of this record may have been created with voice recognition artificial intelligence software, specifically [employer] and or [employer]. Substitutions may have occurred due to the inherent limitations of voice recognition and artificial intelligence software. Patient is a 28-year-old female presents to [facility], for sore throat, sinus congestion, right ear pain. Patient states symptoms started less than a week ago, had fever, chills, nausea, dizziness, headaches, states she states those symptoms improved with the exception of the sore throat and the right ear pain, states she has no left ear pain, patient states she been taking zbja-pqm-eeohdyz Tylenol for fevers and pain, has not taken any today, states she has been trying to take tyvq-xks-fruzoac Mucinex relief without any improvement, states she is able to eat and drink, has a sense of taste and smell intact, has discomfort swallowing but no difficulty swallowing, she states she is concerned about strep pharyngitis, but not COVID-19 or influenza, states no one else at home is ill. Patient denies any worsening headache, worsening dizziness, nausea or vomiting, difficulty swallowing, cough, chest pain, shortness of breath, or weakness. Review of Systems PHQ Score Initial Depression Screen Score: 0 SCORE Physical Exam Vitals & Measurements T: 37.9 ?C(Oral) HR: 120(Peripheral) BP: 122/76 SpO2: 97% HT: 61 in HT: 155 cm WT: 127.3 kg WT: 280.06 lb BMI: 52.99 General: Well developed, well nourished, in no acute distress. Does appear ill but not septic. Answers questions appropriately and in complete sentences, and follows commands appropriately. Head: Normocephalic/atraumatic . Positive upper respiratory infections. Eyes: Pupils equal, round, and reactive to light. Conjunctivae and sclerae normal, Ears: Right TM is bulging with redness, tenderness on exam, concerning for otitis media without perforated drum, drainage, bleeding, or otitis externa. Left TM and external canal are both within normal limits. Hearing is intact. Nose: No deformity, discharge, inflammation, or lesions Mouth: Mucous membranes moist. Normal oropharynx, and posterior pharynx with erythremia and exudates without lesions, enlarged tonsils, or peritonsillar abscess. No trismus. No difficulty swallowing. Neck: Neck supple. No masses or palpable cervical nodes. Trachea midline. No mastoid tenderness. Lungs: Normal respiratory effort and clear to auscultation throughout, no wheezing, rales, crackles.or decreased breath sounds. Cardio: regular rate and rhythm, no murmur Extremity: Patient is able to move all 4 extremities equally when any pain or weakness. Neurologic: Grossly normal Skin: No rashes, ulcerations, or suspicious lesions Lymph Nodes: no lad Mental Status: alert, active Assessment/Plan Discussed with patient she has a temp of 37.9 and a heart rate of 120, patient understands heart rate is elevated due to the fever, states she has not taken any byvd-bpk-vjyqmhs ibuprofen or Tylenol today, states she went to take some when she gets home. Declined any at the convenient care at this time. Patient agreeable to swab for strep pharyngitis, prefers no other swabs at this time. Discuss with patient she is negative for strep pharyngitis. Patient verbally understands she will be contacted with a positive throat culture results in a day or 2. 28-year-old female presented to [facility], for acute pharyngitis, Sampson media, sinus congestion, symptoms started about a week ago, worsening symptoms as of last night, patient did appear ill but not septic, no difficulty swallowing, respiratory distress, cough, chest pain, shortness of breath, abdominal pain. Patient was given a prescription for Zithromax and prednisone, has no history of diabetes, instructed to take vnqd-soa-xsxqfuz ibuprofen and Tylenol every 8 hours for fever, body aches, and pain. Drink plenty water stay hydrated. Declined a work excuse note. Follow-up with primary care provider as needed. 1. Acute pharyngitis (J02.9: Acute pharyngitis, unspecified) See above Ordered: azithromycin, 500 mg = 1 tab(s), Oral, Daily, X 5 day(s), # 5 tab(s), Refills(s) 0, Pharmacy: [facility]/pharmacy #[id number], 155, cm, 12/19/23 12:54:00 EDT, Height/Length Dosing, 127.3, kg, 12/19/23 12:54:00 EDT, Weight Dosing predniSONE, 40 mg = 2 tab(s), Oral, Daily, X 5 day(s), # 10 tab(s), Refills(s) 0, Pharmacy: [facility]/pharmacy #[id number], 155, cm, 12/19/23 12:54:00 EDT, Height/Length Dosing, 127.3, kg, 12/19/23 12:54:00 EDT, Weight Dosing Rapid Strep POC 12907 2. Ri (more content not included)... Normal [facility] Comment on above: Result Comment: Elec tronically Signed By: ALEXEI SON PA-C\.br\Date and Time Signed: 12/19/23 13:22 EDT Patient Educationon 12-19-19 Patient Education ENT Otitis Media, Adult Otitis media is a condition in which the middle ear is red and swollen (inflamed) and full of fluid. The middle ear is the part of the ear that contains bones for hearing as well as air that helps send sounds to the brain. The condition usually goes away on its own. What are the causes? This condition is caused by a blockage in the eustachian tube. This tube connects the middle ear to the back of the nose. It normally allows air into the middle ear. The blockage is caused by fluid or swelling. Problems that can cause blockage include: ? A cold or infection that affects the nose, mouth, or throat. ? Allergies. ? An irritant, such as tobacco smoke. ? Adenoids that have become large. The adenoids are soft tissue located in the back of the throat, behind the nose and the roof of the mouth. ? Growth or swelling in the upper part of the throat, just behind the nose (nasopharynx). ? Damage to the ear caused by a change in pressure. This is called barotrauma. What increases the risk? You are more likely to develop this condition if you: ? Smoke or are exposed to tobacco smoke. ? Have an opening in the roof of your mouth (cleft palate). ? Have acid reflux. ? Have problems in your body's defense system (immune system). What are the signs or symptoms? Symptoms of this condition include: ? Ear pain. ? Fever. ? Problems with hearing. ? Being tired. ? Fluid leaking from the ear. ? Ringing in the ear. How is this treated? This condition can go away on its own within 3?5 days. But if the condition is caused by germs (bacteria) and does not go away on its own, or if it keeps coming back, your doctor may: ? Give you antibiotic medicines. ? Give you medicines for pain. Follow these instructions at home: ? Take jtqz-ppd-hotbsys and prescription medicines only as told by your doctor. ? If you were prescribed an antibiotic medicine, take it as told by your doctor. Do not stop taking it even if you start to feel better. ? Keep all follow-up visits. Contact a doctor if: ? You have bleeding from your nose. ? There is a lump on your neck. ? You are not feeling better in 5 days. ? You feel worse instead of better. Get help right away if: ? You have pain that is not helped with medicine. ? You have swelling, redness, or pain around your ear. ? You get a stiff neck. ? You cannot move part of your face (paralysis). ? You notice that the bone behind your ear hurts when you touch it. ? You get a very bad headache. Summary ? Otitis media means that the middle ear is red, swollen, and full of fluid. ? This condition usually goes away on its own. ? If the problem does not go away, treatment may be needed. You may be given medicines to treat the infection or to treat your pain. ? If you were prescribed an antibiotic medicine, take it as told by your doctor. Do not stop taking it even if you start to feel better. ? Keep all follow-up visits. This information is not intended to replace advice given to you by your health care provider. Make sure you discuss any questions you have with your health care provider. Document Revised: 01/02/2022 Document Reviewed: 01/02/2022 [employer] Patient Education ? 2022 [employer] Infectious Disease Pharyngitis Pharyngitis is a sore throat (pharynx). This is when there is redness, pain, and swelling in your throat. Most of the time, this condition gets better on its own. In some cases, you may need medicine. What are the causes? ? An infection from a virus. ? An infection from bacteria. ? Allergies. What increases the risk? ? Being 5?24 years old. ? Being in crowded environments. These include: ? Daycares. ? Schools. ? Dormitories. ? Living in a place with cold temperatures outside. ? Having a weakened disease-fighting (immune) system. What are the signs or symptoms? Symptoms may vary depending on the cause. Common symptoms include: ? Sore throat. ? Tiredness (fatigue). ? Low-grade fever. ? Stuffy nose. ? Cough. ? Headache. Other symptoms may include: ? Glands in the neck (lymph nodes) that are swollen. ? Skin rashes. ? Film on the throat or tonsils. This can be caused by an infection from bacteria. ? Vomiting. ? Red, itchy eyes. ? Loss of appetite. ? Joint pain and muscle aches. ? Tonsils that are temporarily bigger than usual (enlarged). How is this treated? Many times, treatment is not needed. This condition usually gets better in 3?4 days without treatment. If the infection is caused by a bacteria, you may be need to take antibiotics. Follow these instructions at home: Medicines ? Take gmys-cps-miwhiyr and prescription medicines only as told by your doctor. ? If you were prescribed an antibiotic medicine, take it as told by your doctor. Do not stop taking the antibiotic even if you start to feel better. ? Use throat lozenges or (more content not included)... Normal [facility] [place] CHOLANGIOGRAM ORon 2022 [place] CHOLANGIOGRAM OR EXAMINATION: SPOT IMAGES FROM AN INTRAOPERATIVE CHOLANGIOGRAM 05/28/2023 9:18 am COMPARISON: CT abdomen and pelvis from May 18, 2023 HISTORY: ORDERING SYSTEM PROVIDED HISTORY: Pain TECHNOLOGIST PROVIDED HISTORY: What reading provider will be dictating this exam?->CRC FLUOROSCOPY DOSE AND TYPE: Radiation Exposure Index: Kerma mGy, 19.52 123 images FLUOROSCOPY TIME: 4.4 seconds FINDINGS: Fluoroscopic support provided to subspecialty service for intraoperative cholangiogram. The intrahepatic and extrahepatic biliary system was opacified. No filling defects seen. Contrast flowed freely into the duodenum. No obvious complication on the images provided. Please see subspecialty report for full details and interpretation of real time imaging. IMPRESSION: Fluoroscopic support provided to subspecialty service. Please see subspecialty report for full details and interpretation of real time imaging. Interpreted by: Kirsten Shelton DO Signed by: Kirsten Shelton DO 05/28/23 Final result Normal [facility] OPERATIVE REPORTon 3 OPERATIVE REPORT [place] [id number] OPERATIVE REPORT PATIENT NAME: PRUDENCIO JARAMILLO : 1995 MED REC NO: [id number] ROOM: ACCOUNT NO: [id number] ADMIT DATE: 05/28/2023 PROVIDER: Elsa Scott MD DATE OF PROCEDURE: 05/28/2023 PREOPERATIVE DIAGNOSIS: Qdwzt-so-hrtrjra cholecystitis. PREOPERATIVE DIAGNOSIS: Mvphg-pa-tvokkym cholecystitis. PROCEDURES PERFORMED: 1. Laparoscopic cholecystectomy. 2. Intraoperative cholangiogram. SURGEON: Elsa Scott MD INTERNAL COMMUNICATIONS SPECIALIST: Ms. Castro. ANESTHESIA: 1. General endotracheal anesthesia. 2. Bilateral TAP block. ESTIMATED BLOOD LOSS: 25 mL. SPECIMENS: Gallbladder. COMPLICATIONS: None. INDICATIONS: This is a 27-year-old female with clinical history, physical exam, and imaging consistent with pkulh-pm-elyusgo cholecystitis secondary to gallstones. Risks and benefits of cholecystectomy laparoscopically was described in the office. Risks of the procedure were outlined in the history and physical. Consent obtained. OPERATIVE PROCEDURE: She was taken to the operating room and placed in the supine position. General endotracheal anesthesia was administered. Abdomen was prepped and draped with a ChloraPrep-containing solution. Ancef given preoperatively. A time-out was taken for appropriate verification. A 5-mm supraumbilical incision was made. An optical trocar was placed and pneumoperitoneum was established. The subxiphoid and two lateral ports were placed under direct visualization. The gallbladder showed acute on chronic inflammatory changes. It was held at fundus as well as the neck. The cystic duct was identified and circumferentiated. A distal clip was placed on the cystic duct. A hole was made in the cystic duct using scissors. A cholangiogram catheter was inserted and secured. Under real time fluoroscopy, an intraoperative cholangiogram showed no filling defects and free flow of contrast into the duodenum. The anatomy was clear. The cholangiogram catheter was removed. Two proximal clips were placed on the cystic duct and it was cut with scissors. The cystic artery was clipped and cut in a similar fashion. The gallbladder was removed from the liver bed using electrocautery. It was placed in an EndoCatch bag and brought out the subxiphoid port site. It was sent to Pathology in formalin for permanent section. Excellent hemostasis was achieved and assured in the gallbladder bed using electrocautery as well as Surgicel. The clips were identified and intact. No bleeding or bile leak seen. The remainder of the laparoscopic exam was unremarkable. The lap, needle, instrument, and Ray-Shanthi counts were correct. Pneumoperitoneum was released and the ports were all removed. The fascia of the subxiphoid port site was closed with an interrupted 0 Vicryl suture. The skin incisions were closed with 4-0 Monocryl in a subcuticular fashion. Steri-Strips, Mastisol, and Band-Aids were applied. The lap, needle, instrument, and Ray-Shanthi counts were again correct following closure. The patient was extubated and taken to Recovery for postop monitoring. ELSA SCOTT MD [id number] Doc#: [id number] CC: Normal [facility] Surgical Specimenon 05-28-20 Surgical Specimen [facility] [address] [place] [address] FINAL SURGICAL PATHOLOGY REPORT Patient Name: PRUDENCIO JARAMILLO Accession No: [id number] Age Sex: 1995 Location: [facility] Account No: [id number] Collected: 05/28/2023 Med Rec No: [id number] Received: 05/29/2023 Attend Phys: ELSA SCOTT Completed: 05/30/2023 Perform Phys: ELSA SCOTT FINAL DIAGNOSIS: CHOLECYSTECTOMY: CHRONIC CHOLECYSTITIS CHOLELITHIASIS COMMENT: A SMALL AMOUNT OF ADHERENT HEPATIC PARENCHYMA IS NOTED. JACMO/JACMO CLINICAL INFORMATION: Procedure: Laparoscopic, possible open cholecystectomy with cholangiogram. Preoperative diagnosis: Cholelithiasis with chronic cholecystis. SPECIMEN: Gallbladder GROSS DESCRIPTION: Received in one container labeled with the patient's name and designated gallbladder . The specimen is received in formalin fixative. The specimen consists of a gallbladder, 8 cm in length and up to 3.5 cm in diameter. The serosal surface shows a small amount of adherent adipose tissue; the liver surface is granular. The lumen of the gallbladder is filled with many yellow-green stones, the largest of which is 1.5 cm in greatest dimension. The lumen of the gallbladder also has a small amount of green viscous bile. The gallbladder mucosa shows no gross lesions. The wall of the gallbladder is 0.2 cm in thickness. Defense Attorney sections are submitted in three cassettes. The resection margin is in cassette 1. JOSE/SHAYE CPT: 30130 X1 J DENYS DAVIS M.D. 05/30/2023 Electronically signed out by Page 1 of 1 Invalid Interpretation Code [facility] Comment on above: Performed By: #### S UR #### [facility] [address] [place] [address] CBC W Auto Differential pane l (Bld)on 05-18-2023 Basophils (Bld) [#/Vol] 0.1 10*3/uL 0.0 - 0.2 K/uL [facility] Basophils/100 WBC (Bld) 0.6 % [facility] Eosinophils (Bld) [#/Vol] 0.2 10*3/uL 0.0 - 0.7 K/uL [facility] Eosinophils/100 WBC (Bld) 1.9 % [facility] Erythrocyte distribution width (RBC) [Ratio] 14.7 % High 11.5 - 14.5 % [facility] Hematocrit (Bld) [Volume fraction] 37.6 % 37.0 - 47.0 % [facility] Hemoglobin (Bld) [Mass/Vol] 12.2 g/dL 12.0 - 16.0 g/dL [facility] Interpretation and review of laboratory results Abnormal [facility] Lymphocytes (Bld) [#/Vol] 3.2 10*3/uL 1.0 - 4.8 K/uL [facility] Lymphocytes/100 WBC (Bld) 26.4 % [facility] MCH (RBC) [Entitic mass] 26.4 pg Low 27.0 - 31.3 pg [facility] MCHC (RBC) [Mass/Vol] 32.4 % Low 33.0 - 37.0 % [facility] MCV (RBC) [Entitic vol] 81.4 fL 79.4 - 94.8 fL [facility] Monocytes (Bld) [#/Vol] 0.8 10*3/uL 0.2 - 0.8 K/uL [facility] Monocytes/100 WBC (Bld) 6.5 % [facility] Neutrophils (Bld) [#/Vol] 7.7 10*3/uL High 1.4 - 6.5 K/uL [facility] Platelets (Bld) [#/Vol] 278 10*3/uL 130 - 400 K/uL [facility] RBC (Bld) [#/Vol] 4.62 10*6/uL [facility] Segmented neutrophils/100 WBC (Bld) 64.6 % [facility] WBC (Bld) [#/Vol] 12.0 10*3/uL High 4.8 - 10.8 K/uL [facility] CBC With Platelet and Differ entialon 05-18-2023 Basophils (Bld) [#/Vol] 0.1 10*3/uL Normal 0.0-0.2 [facility] Comment on above: Performed By: #### C BCWD #### [facility] [address] [place] [address] Basophils/100 WBC (Bld) 0.6 % Normal [facility] Comment on above: Performed By: #### C BCWD #### [facility] [address] [place] [address] Eosinophils (Bld) [#/Vol] 0.2 10*3/uL Normal 0.0-0.7 [facility] Comment on above: Performed By: #### C BCWD #### [facility] [address] [place] [address] Eosinophils/100 WBC (Bld) 1.9 % Normal [facility] Comment on above: Performed By: #### C BCWD #### [facility] [address] [place] [address] Erythrocyte distribution width (RBC) [Ratio] 14.7 % Critically high 11.5-14.5 [facility] Comment on above: Performed By: #### C BCWD #### [facility] [address] [place] [address] Hematocrit (Bld) [Volume fraction] 37.6 % Normal 37.0-47.0 [facility] Comment on above: Performed By: #### C BCWD #### [facility] [address] [place] [address] Hemoglobin (Bld) [Mass/Vol] 12.2 g/dL Normal 12.0-16.0 [facility] Comment on above: Performed By: #### C BCWD #### [facility] [address] [place] [address] Lymphocytes (Bld) [#/Vol] 3.2 10*3/uL Normal 1.0-4.8 [facility] Comment on above: Performed By: #### C BCWD #### [facility] [address] [place] [address] Lymphocytes/100 WBC (Bld) 26.4 % Normal [facility] Comment on above: Performed By: #### C BCWD #### [facility] [address] [place] [address] MCH (RBC) [Entitic mass] 26.4 pg Low 27.0-31.3 [facility] Comment on above: Performed By: #### C BCWD #### [facility] [address] [place] [address] MCHC 32.4 % Low 33.0-37.0 [facility] Comment on above: Performed By: #### C BCWD #### [facility] [address] [place] [address] MCV (RBC) [Entitic vol] 81.4 fL Normal 79.4-94.8 [facility] Comment on above: Performed By: #### C BCWD #### [facility] [address] [place] [address] Monocytes (Bld) [#/Vol] 0.8 10*3/uL Normal 0.2-0.8 [facility] Comment on above: Performed By: #### C BCWD #### [facility] [address] [place] [address] Monocytes/100 WBC (Bld) 6.5 % Normal [facility] Comment on above: Performed By: #### C BCWD #### [facility] [address] [place] [address] Neutrophils (Bld) [#/Vol] 7.7 10*3/uL Critically high 1.4-6.5 [facility] Comment on above: Performed By: #### C BCWD #### [facility] [address] [place] [address] Neutrophils/100 WBC (Bld) 64.6 % Normal [facility] Comment on above: Performed By: #### C BCWD #### [facility] [address] [place] [address] Platelets (Bld) [#/Vol] 278 10*3/uL Normal 130-400 [facility] Comment on above: Performed By: #### C BCWD #### [facility] [address] [place] [address] RBC (Bld) [#/Vol] 4.62 10*6/uL Normal 4.20-5.40 [facility] Comment on above: Performed By: #### C BCWD #### [facility] [address] [place] [address] WBC (Bld) [#/Vol] 12.0 10*3/uL Critically high 4.8-10.8 [facility] Comment on above: Performed By: #### C BCWD #### [facility] [address] [place] [address] CT ABDOMEN PELVIS W IV CONTR Joselo 05-18-2023 CT ABDOMEN PELVIS W IV CONTRAST EXAMINATION: CT OF THE ABDOMEN AND PELVIS WITH CONTRAST 05/18/2023 9:21 pm TECHNIQUE: CT of the abdomen and pelvis was performed with the administration of intravenous contrast. Multiplanar reformatted images are provided for review. Automated exposure control, iterative reconstruction, and/or weight based adjustment of the mA/kV was utilized to reduce the radiation dose to as low as reasonably achievable. COMPARISON: None. HISTORY: ORDERING SYSTEM PROVIDED HISTORY: epigastric abd pain TECHNOLOGIST PROVIDED HISTORY: Reason for exam:->epigastric abd pain Additional Contrast?->None Decision Support Exception - unselect if not a suspected or confirmed emergency medical condition->Emergency Medical Condition (MA) What reading provider will be dictating this exam?->CRC FINDINGS: Lower Chest: The lung bases are grossly clear. Organs: Liver is homogeneous in appearance. No stones in the gallbladder. The pancreas is homogeneous. Spleen is unremarkable. Both adrenal glands are within normal limits. Symmetric enhancement of the renal parenchyma. No stones or distension seen in the renal collecting system. GI/Bowel: Stomach is unremarkable with food debris. No wall thickening. The small bowel is within normal limits. No mucosal abnormality. Stool seen scattered diffusely throughout the colon. The appendix is been surgically removed. No inflammatory changes seen in the right lower quadrant. Pelvis: The bladder is incompletely distended. The uterus is unremarkable with multiple follicles identified in the ovaries bilaterally. Peritoneum/Retroperitone um: No abdominal or retroperitoneal lymphadenopathy. No free fluid or free air. No abnormal mass or fluid collections identified. No pelvic adenopathy. Bones/Soft Tissues: Bony structures reveal no evidence of acute or aggressive osseous abnormality. No ventral abdominal wall mass or defect. IMPRESSION: No CT evidence of acute intra-abdominal or pelvic abnormality. Interpreted by: Vicky Nieto MD Signed by: Vicky Nieto MD 05/19/23 Final result Normal [facility] Comprehensive Metabolic Pane anshu 05-18-2023 Albumin [Mass/Vol] 3.9 g/dL Normal 3.5-4.6 [facility] Comment on above: Performed By: #### C MP #### [facility] [address] [facility] [address] 098-16 ALP [Catalytic activity/Vol] 91 U/L Normal 40-130 [facility] Comment on above: Performed By: #### C MP #### [facility] [address] [place] [address] ALT [Catalytic activity/Vol] 15 U/L Normal 0-33 [facility] Comment on above: Performed By: #### C MP #### [facility] [address] [place] [address] Anion gap [Moles/Vol] 12 mmol/L Normal 9-15 [facility] Comment on above: Performed By: #### C MP #### [facility] [address] [place] [address] AST [Catalytic activity/Vol] 27 U/L Normal 0-35 [facility] Comment on above: Performed By: #### C MP #### [facility] [address] [place] [address] Bilirubin [Mass/Vol] mg/dL Normal 0.2-0.7 [facility] Comment on above: Performed By: #### C MP #### [facility] [address] [place] [address] Calcium [Mass/Vol] 9.4 mg/dL Normal 8.5-9.9 [facility] Comment on above: Performed By: #### C MP #### [facility] [address] [place] [address] Chloride [Moles/Vol] 104 mmol/L Normal 95-107 [facility] Comment on above: Performed By: #### C MP #### [facility] [address] [place] [address] CO2 [Moles/Vol] 24 mmol/L Normal 20-31 [facility] Comment on above: Performed By: #### C MP #### [facility] [address] [place] [address] Creatinine [Mass/Vol] 0.56 mg/dL Normal 0.50-0.90 [facility] Comment on above: Performed By: #### C MP #### [facility] [address] [place] [address] GFR >60.0 Normal >60 [facility] Comment on above: Result Comment: Sudarshan solitarioc calculator link https://www.kidney.org/professionals/kdoqi/gfr_calculatorped Effective Jul 10, 2022 These results are not intended for use in patients <18 years of age. eGFR results are calculated without a race factor using the 2020 CKD-EPI equation. Careful clinical correlation is recommended, particularly when comparing to results calculated using previous equations. The CKD-EPI equation is less accurate in patients with extremes of muscle mass, extra-renal metabolism of creatinine, excessive creatinine ingestion, or following therapy that affects renal tubular secretion. Performed By: #### C MP #### [facility] [address] [place] [address] Globulin (S) [Mass/Vol] 3.2 g/dL Normal 2.3-3.5 [facility] Comment on above: Performed By: #### C MP #### [facility] [address] [place] [address] Glucose [Mass/Vol] 89 mg/dL Normal 70-99 [facility] Comment on above: Performed By: #### C MP #### [facility] [address] [place] [address] Potassium [Moles/Vol] 3.8 mmol/L Normal 3.4-4.9 [facility] Comment on above: Performed By: #### C MP #### [facility] [address] [place] [address] Protein [Mass/Vol] 7.1 g/dL Normal 6.3-8.0 [facility] Comment on above: Performed By: #### C MP #### [facility] [address] [place] [address] Sodium [Moles/Vol] 140 mmol/L Normal 135-144 [facility] Comment on above: Performed By: #### C MP #### [facility] [address] [place] [address] Urea nitrogen [Mass/Vol] 15 mg/dL Normal 6-20 [facility] Comment on above: Performed By: #### C MP #### [facility] [address] [place] [id number] [phone] Comprehensive metabolic 2000 panelon 05-18-2023 Albumin [Mass/Vol] 3.9 g/dL 3.5 - 4.6 g/dL [facility] ALP [Catalytic activity/Vol] 91 U/L 40 - 130 U/L [facility] ALT [Catalytic activity/Vol] 15 U/L 0 - 33 U/L [facility] Anion gap [Moles/Vol] 12 mmol/L [facility] AST [Catalytic activity/Vol] 27 U/L 0 - 35 U/L [facility] Bilirubin [Mass/Vol] mg/dL 0.2 - 0 .7 mg/dL [facility] Calcium [Mass/Vol] 9.4 mg/dL 8.5 - 9.9 mg/dL [facility] Chloride [Moles/Vol] 104 mmol/L [facility] CO2 [Moles/Vol] 24 mmol/L [facility] Creatinine [Mass/Vol] 0.56 mg/dL 0.50 - 0.90 mg/dL [facility] GFR/1.73 sq M.predicted among non-blacks MDRD (S/P/Bld) [Vol rate/Area] 60 - PINF [facility] Comment on above: Pediatric calculator link https://www.kidney.org/professionals/kdoqi/gfr_calculatorped Effective Jul 10, 2022 These results are not intended for use in patients <18 years of age. eGFR results are calculated without a race factor using the 2020 CKD-EPI equation. Careful clinical correlation is recommended, particularly when comparing to results calculated using previous equations. The CKD-EPI equation is less accurate in patients with extremes of muscle mass, extra-renal metabolism of creatinine, excessive creatinine ingestion, or following therapy that affects renal tubular secretion. Globulin (S) [Mass/Vol] 3.2 g/dL 2.3 - 3.5 g/dL [facility] Glucose [Mass/Vol] 89 mg/dL 70 - 99 mg/dL [facility] Potassium [Moles/Vol] 3.8 mmol/L [facility] Protein [Mass/Vol] 7.1 g/dL 6.3 - 8.0 g/dL [facility] Sodium [Moles/Vol] 140 mmol/L [facility] Urea nitrogen [Mass/Vol] 15 mg/dL 6 - 20 mg/dL [facility] Lipaseon 05-18-2023 Lipase [Catalytic activity/Vol] 23 U/L Normal 12-95 [facility] Comment on above: Performed By: #### L IPAS #### [facility] [address] [place] [address] Lipase [Catalytic activity/Vol] 23 U/L 12 - 95 U/L [facility] No Panel Informationon 05-18 [facility] POCT Creatinineon 05-18-2023 Interpretation and review of laboratory results Normal [facility] POC CREATININE WHOLE BLOOD 0.6 [facility] POCT Venouson 05-18-2023 Creatinine [Mass/Vol] 0.6 mg/dL Normal 0.6-1.2 [facility] Comment on above: Performed By: #### P PORTER #### [facility] [address] [place] [id number] GFR >60 Normal >60 [facility] Comment on above: Result Comment: Sudarshan atric calculator link https://www.kidney.org/professionals/kdoqi/gfr_calculatorped Effective Jul 10, 2022 These results are not intended for use in patients <18 years of age. eGFR results are calculated without a race factor using the 2020 CKD-EPI equation. Careful clinical correlation is recommended, particularly when comparing to results calculated using previous equations. The CKD-EPI equation is less accurate in patients with extremes of muscle mass, extra-renal metabolism of creatinine, excessive creatinine ingestion, or following therapy that affects renal tubular secretion. Performed By: #### P PORTER #### [facility] [address] [place] [id number] POC Performed on SEE BELOW Normal [facility] Comment on above: Result Comment: Perf ormed on POC Performed By: #### P PORTER #### [facility] [address] [place] [address] POC Sample Type PORTER Normal [facility] Comment on above: Performed By: #### P PORTER #### [facility] [address] [place] [address] Troponinon 05-18-2023 Troponin I.cardiac [Mass/Vol] ng/mL Normal 0.000-0.01 [facility] Comment on above: Result Comment: Meth odology by Troponin T. Performed By: #### T ROP #### [facility] [address] [place] [address] Troponin T.cardiac [Mass/Vol] ng/mL 0.000 - 0.010 ng/mL [facility] Comment on above: Methodology by Tropo brooke T. Troponin T.cardiac [Mass/Vol ]on 05-18-2023 [facility] US ABDOMEN LIMITEDon 023 US ABDOMEN LIMITED EXAMINATION: RIGHT UPPER QUADRANT ULTRASOUND 05/18/2023 8:47 pm COMPARISON: None. HISTORY: ORDERING SYSTEM PROVIDED HISTORY: ruq pain TECHNOLOGIST PROVIDED HISTORY: Reason for exam:->ruq pain What reading provider will be dictating this exam?->CRC FINDINGS: LIVER: Hepatomegaly at 17.5 cm with normal echogenicity and without evidence of intrahepatic biliary ductal dilatation. BILIARY SYSTEM: Cholelithiasis. Negative sonographic Rios's sign. Common bile duct is mildly dilated 8.1 mm RIGHT KIDNEY: The right kidney is grossly unremarkable without evidence of hydronephrosis. PANCREAS: Visualized portions of the pancreas are unremarkable. OTHER: No evidence of right upper quadrant ascites. IMPRESSION: Cholelithiasis. No gallbladder wall thickening or pericholecystic fluid. Mildly dilated common duct at 8.1 mm. Interpreted by: Kirsten Pardo MD Signed by: Kirsten Pardo MD 05/18/23 Final result Normal [facility] Cholelithiasis. No gallbladder wall thickening or pericholecystic fluid. Mildly dilated common duct at 8.1 mm. [facility] RADIOLOGY EXAMINATION: RIGHT UPPER QUADRANT ULTRASOUND 05/18/2023 8:47 pm COMPARISON: None. HISTORY: ORDERING SYSTEM PROVIDED HISTORY: ruq pain TECHNOLOGIST PROVIDED HISTORY: Reason for exam:->ruq pain What reading provider will be dictating this exam?->CRC FINDINGS: LIVER: Hepatomegaly at 17.5 cm with normal echogenicity and without evidence of intrahepatic biliary ductal dilatation. BILIARY SYSTEM: Cholelithiasis. Negative sonographic Rios's sign. Common bile duct is mildly dilated 8.1 mm RIGHT KIDNEY: The right kidney is grossly unremarkable without evidence of hydronephrosis. PANCREAS: Visualized portions of the pancreas are unremarkable. OTHER: No evidence of right upper quadrant ascites. [facility] RADIOLOGY Kirsten Pardo MD - 05/18/2023 EXAMINATION: RIGHT UPPER QUADRANT ULTRASOUND 05/18/2023 8:47 pm COMPARISON: None. HISTORY: ORDERING SYSTEM PROVIDED HISTORY: ruq pain TECHNOLOGIST PROVIDED HISTORY: Reason for exam:->ruq pain What reading provider will be dictating this exam?->CRC FINDINGS: LIVER: Hepatomegaly at 17.5 cm with normal echogenicity and without evidence of intrahepatic biliary ductal dilatation. BILIARY SYSTEM: Cholelithiasis. Negative sonographic Rios's sign. Common bile duct is mildly dilated 8.1 mm RIGHT KIDNEY: The right kidney is grossly unremarkable without evidence of hydronephrosis. PANCREAS: Visualized portions of the pancreas are unremarkable. OTHER: No evidence of right upper quadrant ascites. IMPRESSION: Cholelithiasis. No gallbladder wall thickening or pericholecystic fluid. Mildly dilated common duct at 8.1 mm. [facility] Radiology Study observation (narrative) [facility] US ABDOMEN LIMITEDOrdered By : Kirsten Pardo on 05-18-2023 [facility] Work Phone: Consent for Treatmenton -0 Consent for Treatment [id number]: 127 Normal [facility] Discharge Instructionson Discharge Instructions [id number] :127 Normal [facility] ED Clinical Summaryon 2022 ED Clinical Summary (Inserted Image. Sophie ble to display) [address] [address] ED Clinical Summary Person Information Name: PRUDENCIO JARAMILLO/[facility] Age: 27 Years : 1995 Sex: Female Language: Kuwaiti PCP: Carol Gutierrez CNP Marital Status: Visit Id: Visit Reason: Wrist injury - Minor; FELL AT [employer] [place] Speciality: Acuity: 4 Enc Type: Emergency Med Service: Emergency Arrival: 04/14/2023 13:29:48 Discharge: 04/14/2023 15:10:13 LOS: 000 01:41 Checkin: 04/14/2023 13:29:48 Checkout: 04/14/2023 15:10:13 Dispo Type: Home (Routine DC) EVENTS: Event Name Event Status Request Date/Time Start Date/Time Complete Date/Time Arrive Complete 04/14/2023 13:29:48 04/14/2023 13:29:48 04/14/2023 13:29:48 Document Home Meds Request 04/14/2023 13:29:48 Triage Complete 04/14/2023 13:29:48 04/14/2023 13:45:01 04/14/2023 13:45:01 Bed Assign Complete 04/14/2023 13:38:14 04/14/2023 13:38:14 04/14/2023 13:38:14 Dr Exam Complete 04/14/2023 13:38:14 04/14/2023 13:40:38 04/14/2023 13:40:38 RN Exam Complete 04/14/2023 13:38:14 04/14/2023 15:16:43 04/14/2023 15:16:43 Registration Complete 04/14/2023 13:40:38 04/14/2023 13:54:59 04/14/2023 13:54:59 Dr Exam Complete 04/14/2023 13:41:20 04/14/2023 13:41:20 04/14/2023 13:41:20 X-Ray Complete 04/14/2023 13:41:53 04/14/2023 13:44:38 04/14/2023 13:53:21 Workers Comp Request 04/14/2023 13:45:02 Wet Read Complete 04/14/2023 13:53:21 04/14/2023 14:03:11 04/14/2023 14:03:11 Reg Complete Request 04/14/2023 13:54:59 Reg Bed Request Complete 04/14/2023 13:54:59 04/14/2023 13:54:59 04/14/2023 13:54:59 Discharge Complete 04/14/2023 14:16:40 04/14/2023 15:19:47 04/14/2023 15:19:47 Transfer Complete 04/14/2023 15:19:47 04/14/2023 15:19:47 04/14/2023 15:19:47 ADDRESS: [address] [place] [phone] PHYS DOC NOTES: MEDICAL INFORMATION: Prescriptions Given: New Medications [id number], [address], [place] [id number], [phone] naproxen (naproxen 500 mg Tab) 1 Tablets By Mouth 2 times a day. Take one tab by mouth two times a day. Refills: 0. Medications to Continue with No Changes Other Medications citalopram (citalopram 20 mg Tab) 1 Tablets By Mouth every day. famotidine (Pepcid 20 mg Tab) 1 Tablets By Mouth every day. Refills: 0. ondansetron (Zofran 4 mg Tab) 1 Tablets By Mouth every 8 hours as needed Nausea/Vomiting. Refills: 0. PATIENT EDUCATION INFORMATION: Instructions: Wrist Sprain, Adult; RICE Therapy for Routine Care of Injuries Follow up: With: Address: When: [facility] [employer] [address], [facility] [place] [address] Business (1) In 3 days 04/17/2023 With: Address: When: Carol Gutierrez [address] [place] [address], [facility], [address] [place] [address] Business (1) In 3 days DIAGNOSIS: Wrist sprain Normal [facility] ED Note-Physicianon 04-14-20 ED Note-Physician Basic Information Time Seen: Barak Greer DO 04/14/2023 13:40 Chief Complaint Pt has lt wrist pain from fall at work. neg LOC. ABC's and MSP's intact History of Present Illness 27-year-old female comes to the ED for evaluation of a left wrist injury. The patient had a fall at work. States he slipped puddle of water falling onto her left wrist. Describes a FOOSH type injury. She has generalized tenderness about the wrist. No other area of injury or concern. No concern for . No prior treatments. Review of Systems A 10 point review of systems is negative except as noted above. Medical and Surgical History: Reviewed and noted Social history: Lives at home Tobacco: Denies Physical Exam Vitals & Measurements T: 36.5 ?C(Oral) HR: 79(Peripheral) RR: 18 BP: 119/82 SpO2: 98% HT: 155 cm WT: 120 kg BMI: 49.95 Nurses notes and vital signs reviewed and patient is not hypoxic. General: The patient appears well, resting comfortably. Skin: Warm, dry. Head: Atraumatic. Neck: No JVD. Eye: Normal conjunctiva. Ears, Nose, Mouth, and Throat: Moist mucous membranes. Cardiovascular: Strong distal pulses. Chest wall: Respiratory: Respirations are nonlabored. Back: Normal range of motion. Musculoskeletal: Generalized tenderness about the left wrist. No soft tissue swelling, ecchymosis, erythema. No focal finding. Good range of motion of all fingers. Strong pulses radius and ulna. Gastrointestinal: Urological: Neurological: Awake and alert. No focal deficits. Follows commands. Psychiatric: Cooperative. Medical Decision Making X-rays show no evidence of fracture or dislocation. She is educated rice therapy. Patient reports this is a workers comp claim and is given industrial health followup. Patient was encouraged to return to the ED if symptoms worsen or change. Assessment/Plan Wrist sprain (S63.509A: Unspecified sprain of unspecified wrist, initial encounter) Orders: XR Wrist 3+ Views Left Disposition Plan Patient Discharge Condition Disposition: Discharged home Condition: Improved and stable Counseled: Patient and/or family were counseled to workup, results, treatment plan and follow-up recommendations Discharge Prescription List Prescriptions naproxen 500 mg Tab, 500 mg= 1 tab(s), Oral, BID Follow-up With When Contact Information [employer] In 3 days 04/17/2023 EDT [address] [facility] [place] [address] [place] [address]- Business (1) Additional Instructions: Carol Gutierrez In 3 days [address] [facility], [address] [place] [address]- Business (1) Additional Instructions: Patient Education Wrist Sprain, Adult RICE Therapy for Routine Care of Injuries Attestation Patient seen and evaluated by the physician special education assistant. Attending physician was present in the emergency department and supervised care. This visit was performed by both the physician and an APC. I performed all aspects of the MDM as documented. This report was transcribed using voice recognition software. Every effort was made to ensure accuracy, however, inadvertently computerized ssrs report developer mistakes may be present. Appropriate healthcare PPE was used in evaluating this patient. The patient was placed in a mask. The healthcare provider was wearing mask, gloves, and utilizing proper hand hygiene. All equipment was properly cleansed. Problem List/Past Medical History Ongoing Acute URI Clostridium difficile diarrhea Diverticulitis Loss of taste Lumbago Lumbar radiculitis Historical Appendectomy Depression Migraine Procedure/Surgical History section (07/22/2021), Flexible sigmoidoscopy (12/10/2019), Excision of pilonidal cyst or sinus; simple (08/16/2017), Appendectomy (08/14/2011). Medications Inpatient No active inpatient medications Home citalopram 20 mg Tab, 20 mg= 1 tab(s), Oral, Daily naproxen 500 mg Tab, 500 mg= 1 tab(s), Oral, BID Pepcid 20 mg Tab, 20 mg= 1 tab(s), Oral, Daily, Not taking Zofran 4 mg Tab, 4 mg= 1 tab(s), Oral, q8hr, PRN, Not taking Allergies amoxicillin (Hives) penicillins (Hives) Social History Alcohol - Denies Alcohol Use, 08/15/2017 Current, denies, 12/08/2019 Substance Abuse - Denies Substance Abuse, 08/15/2017 Current, denies, 12/08/2019 Tobacco - Denies Tobacco Use, 08/15/2017 Former smoker, quit more than 30 days ago Tobacco Use:. Never Smokeless Tobacco Use:. Cigarettes, Started age 18.0 Years. Stopped age 18 Years. Household tobacco concerns: No., 01/03/2022 Family History Congenital heart disease: Grandparent. Lab Results No qualifying data available. Diagnostic Results XR Wrist 3+ Views Left 04/14/23 14:06:21 NEGATIVE: No fracture, dislocation or other acute abnormality Read By: Barak Greer DO 04/14/23 14:15:41 IMPRESSION: NEGATIVE LEFT WRIST. EXAM: Left wrist, 4 views. CLINICAL HISTORY: Pain, Traumatic COMPARISON: None FINDINGS: AP, lateral, oblique and navic (more content not included)... Normal [facility] Comment on above: Result Comment: Elec tronically Signed By: Anton Waldrop PA-C\.br\Date and Time Signed: 04/14/23 15:24 EDT\.br\Electronically Co-Signed By: Barak Greer DO\.br\Date and Time Co-Signed: 04/14/23 16:02 EDT ED Patient Education Noteon 04-14-2023 ED Patient Education Note Orthopedics Wrist Sprain, Adult A wrist sprain is a stretch or tear in the strong tissues that connect the wrist bones to each other. These strong tissues are called ligaments. There are three types of wrist sprains: ? Grade 1. The ligament is stretched more than normal. There may be a minor amount of wrist pain. ? Grade 2. The ligament is partially torn. You may be able to move your wrist, but not very much. There may be a moderate amount of wrist pain. ? Grade 3. The ligament or ligaments are completely torn. You may find it difficult to move your wrist even a little. There may be a significant amount of wrist pain. What are the causes? This condition may be caused by using the wrist too much during sports, exercise, or work. It can also happen due to a fall or during an accident. What increases the risk? You are more likely to develop this condition if: ? You had a previous wrist or arm injury. ? You have poor wrist strength and flexibility. ? You play contact sports, such as football or soccer. ? You participate in sports that may result in a fall, such as skateboarding, biking, skiing, or snowboarding. ? You do not exercise regularly. ? You use exercise equipment that does not fit well. What are the signs or symptoms? Symptoms of this condition include: ? Pain in the wrist, arm, or hand. ? Swelling or bruised skin near the wrist, hand, or arm. The skin may look yellow or blue. ? Stiffness or trouble moving the hand. ? Hearing a noise, like a pop or a snap, at the time of injury, or feeling a tear at the time of the injury. ? A warm feeling in the skin around the wrist. How is this diagnosed? This condition is diagnosed with a physical exam. Sometimes an X-ray is taken to make sure a bone did not break. You may also have an MRI of your wrist to check for torn ligaments. How is this treated? This condition is treated by resting and applying ice to your wrist. Additional treatment may include: ? Taking medicine for pain and inflammation. ? Wearing a splint, brace, or cast for a short period of time to keep your wrist from moving (immobilized). ? Doing exercises to strengthen and stretch your wrist. ? Having surgery. This may be done if the ligament is completely torn. Follow these instructions at home: If you have a splint or brace: ? Wear the splint or brace as told by your health care provider. Remove it only as told by your health care provider. ? Loosen it if your fingers tingle, become numb, or turn cold and blue. ? Keep it clean. ? If the splint or brace is not waterproof: ? Do not let it get wet. ? Cover it with a watertight covering when you take a bath or a shower. If you have a cast: ? Do not put pressure on any part of the cast until it is fully hardened. This may take several hours. ? Do not stick anything inside the cast to scratch your skin. Doing that increases your risk of infection. ? Check the skin around the cast every day. Tell your health care provider about any concerns. ? You may put lotion on dry skin around the edges of the cast. Do not put lotion on the skin underneath the cast. ? Keep it clean. ? If the cast is not waterproof: ? Do not let it get wet. ? Cover it with a watertight covering when you take a bath or shower. Managing pain, stiffness, and swelling ? If directed, put ice on the injured area. To do this: ? If you have a removable splint or brace, remove it as told by your health care provider. ? Put ice in a plastic bag. ? Place a towel between your skin and the bag or between the splint or cast and the bag. ? Leave the ice on for 20 minutes, 2?3 times a day. ? Remove the ice if your skin turns bright red. This is very important. If you cannot feel pain, heat, or cold, you have a greater risk of damage to the area. ? Move your fingers often to reduce stiffness and swelling. ? Raise (elevate) the injured area above the level of your heart while you are sitting or lying down. Activity ? Rest your wrist as told by your health care provider. Do not do things that cause pain. ? Ask your health care provider when it is safe to drive if you have a splint, brace, or cast on your wrist. ? Do exercises as told by your health care provider. ? Return to your normal activities as told by your health care provider. Ask your health care provider what activities are safe for you. General instructions ? Take yizf-ppu-bzdjdeq and prescription medicines only as told by your health care provider. ? Do not use any products that contain nicotine or tobacco, such as cigarettes, e-cigarettes, and chewing tobacco. These can delay healing. If you need help quitting, ask your health care provider. ? Keep all follow-up visits. This is important. Contact a health care provider if: ? Your pain, bruising, or swelling gets worse. ? Your skin becomes red, gets a rash, or has open sores. ? Your pain does not get better or it gets (more content not included)... Normal [facility] ED Patient Summaryon 023 ED Patient Summary (Inserted Image. Sophie ble to display) [place] [id number] Patient Discharge Instructions Person Information Name: PRUDENCIO JARAMILLO Age: 27 Years Arrival Date: 04/14/2023 13:29:48 Discharge Diagnosis: Wrist sprain Primary Care Physician: Carol Gutierrez CNP Provider Information Primary Provider: Barak Greer DO [employer] Technician:Anton Waldrop PA-C The exam and treatment you received in the Emergency Department were for an urgent problem and are not intended as complete care. It is important that you follow up with a doctor, nurse practitioner, or physician?s special education assistant for ongoing care. If your symptoms become worse or you do not improve as expected and you are unable to reach your usual health care provider, you should return to the Emergency Department. We are available 24 hours a day. PRUDENCIO JARAMILLO has been given the following list of patient education materials, prescriptions and follow-up instructions: Follow-up Instructions: [facility]: [facility], [place] [address] Business (1) In 3 days 04/17/2023 With: Address: When: Carol Gutierrez [address] [place] [address], [address] [place] [address] Business (1) In 3 days In the event that this physician does not participate in your insurance network, please consult with your insurance company to find a nearby participating provider. Patient Education Materials: Wrist Sprain, Adult; RICE Therapy for Routine Care of Injuries A MESSAGE TO ALL PATIENTS REGARDING OPIOIDS PRESCRIPTION OPIOIDS: WHAT YOU NEED TO KNOW Prescription opioids can be used to help relieve okslhhti-fb-wljqbl pain and are often prescribed following a surgery or injury, or for certain health conditions. These medications can be an important part of the treatment but also come with serious risks. It is important to work with your healthcare provider to make sure you are getting the safest, most effective care. WHAT ARE THE RISKS AND SIDE EFFECTS OF OPIOID USE? Prescription opioids carry serious risks of addiction and overdose, especially with prolonged use. An opioid overdose, often marked by slowed breathing, can cause sudden . The use of prescription opioids can have a number of side effects as well, even when taken as directed: ? Tolerance?meaning you might need to take more of the medication for the same pain relief ? Physical dependence?meaning you have symptoms of withdrawal when a medication is stopped ? Increased sensitivity to pain ? Constipation ? Nausea, vomiting, and dry mouth ? Sleepiness and dizziness ? Confusion ? Depression ? Low levels of testosterone that can result in lower sex drive, energy, and strength ? Itching and sweating RISKS ARE GREATER WITH: ? History of drug misuse, substance use disorder, or overdose ? Mental health conditions (such as depression or anxiety) ? Sleep apnea ? Older age (65 years and older) ? Avoid alcohol while taking prescription opioids. Also, unless specifically advised by your health care provider, medications to avoid include: ? Benzodiazepines (such as Xanax or Valium) ? Muscle relaxants (such as Soma or Flexeril) ? Hypnotics (such as Ambien or Lunesta) ? Other prescription opioids KNOW YOUR OPTIONS Talk to your health care provider about ways to manage your pain that don?t involve prescription opioids. Some of these options may actually work better and have fewer risks and side effects. Options may include: ? Pain relievers such as acetaminophen, ibuprofen, and naproxen ? Some medication that are also used for depression or seizures ? Physical therapy and exercise ? Cognitive behavioral therapy, a psychological, goal-directed approach, in which patients learn how to modify physical, behavioral, and emotional triggers of pain and stress. IF YOU ARE PRESCRIBED OPIOIDS FOR PAIN: ? Never take opioids in greater amounts or more often than prescribed. ? Follow up with your primary health care provider. o Work together to create a plan on how to manage your pain. o Talk about ways to help manage your pain that don?t involve prescription opioids. o Talk about any and all concerns and side effects. ? Help prevent misuse and abuse o Never sell or share prescription opioids. o Never use another person?s prescription opioids. ? Store prescription opioids in a secure place and out of reach of others (this may include visitors, children, friends, and family). ? Safely dispose of unused prescription opioids: Find your community drug take-back program or your pharmacy mail-back program, or flush them down the toilet, following guidance from the Food and Drug Administration (www.fda.gov/Drugs/Resou rcesForYou). ? Visit www.cdc.gov/drugoverdose to learn about the risks of opioids abuse and over (more content not included)... Normal [facility] Workers Comp Formson 023 Workers Comp Forms [id number] :127 Normal [facility] XR Wrist 3+ Views Lefton XR Wrist 3+ Views Left Exam Date/Time: 04/14/2023 13:53 EDT Reason for Exam: Pain, Traumatic Report IMPRESSION: NEGATIVE LEFT WRIST. EXAM: Left wrist, 4 views. CLINICAL HISTORY: Pain, Traumatic COMPARISON: None FINDINGS: AP, lateral, oblique and navicular views of the left wrist demonstrate no evidence of a fracture, dislocation, bone or joint abnormality. Ordering Provider: Anton Waldrop FINAL REPORT Dictated: 04/14/2023 2:12 pm Mao Jj MD, V. Signed (Electronic Signature): 04/14/2023 2:12 pm Signed by: Mao Jj MD, V. Transcribed by: CJ Technologist: NURIA Technical Comments Radiation Dose: Ka,r in mGy = na DAP = na Normal [facility] Medicine Office/Clini c Noteon 02-16-2023 Family Medicine Office/Clinic Note Chief Complaint EST, elbow pain HPI Staff Pain characteristics: Pain location: left elbow Intensity:3/10 today, worse with movement Onset: 1 day Medication used: Motrin Pt states toddler twisted arm, pt states shooting pain, pressure, pop History of Present Illness I have reviewed and verified the staff HPI to be accurate for this encounter. 37-year-old female presents with chief complaint of abdominal pain. Patient states that yesterday afternoon around 4 PM her 84-nbkxo-ndt son decided he was going to try to climb up her he states that he took the left arm and kind of twisted it almost outstretched that he decided to climb up the arm she states he got about retirement up when she heard and felt a pop in the left elbow and has since now had pain. She had some leftover 800 mg ibuprofen from her approximately 5 months ago and she is 5 months . She states that it helped somewhat but it wears off she discomfort came back if she fully extends left elbow she has pain that shoots up into the left shoulder or down into the left hand denies any numbness tingling or weakness. She states pain or discomfort when trying to lift her children this morning. She has her 15-zqjqm-adu son and a 5-month-old daughter. She has no other concerns at this time she does not believe it is broken. Review of Systems PHQ Score Initial Depression Screen Score: 0 Physical Exam Vitals & Measurements HR: 66(Peripheral) BP: 124/80 SpO2: 98% HT: 61 in HT: 155 cm WT: 120.6 kg WT: 265.32 lb BMI: 50.2 General: Well developed, well nourished, in no acute distress Eyes: not assessed Ears: not assessed Nose: not addressed Mouth: not assessed Neck: not assessed Lungs: clear to auscultation throughout, no wheezing, no rales. No respiratory distress Cardio: regular rate and rhythm, no murmur Abdomen: not assessed Musculoskeletal: Patient walked back into convenient care on her own without any abnormalities. Extremity: Patient has strong radial pulses with brisk capillary refill bilaterally. Equal worm sorter strength bilaterally. No patient is able to fully extend the left elbow there is a click with full extension. Is able to fully flex without pain or discomfort. Is able to reach behind her back without difficulty no pain at the left shoulder or left wrist. Neurologic: not assessed Skin: No rashes, ulcerations, or suspicious lesions Mental Status: Alert and oriented x3. Normal mood and affect Assessment/Plan 1. Sprain of left elbow, (S53.402A: Unspecified sprain of left elbow, initial encounter)Sprain of left elbow Please follow-up with your primary care provider in 3 to 5 days. Contact their office this afternoon or Sunday to schedule a follow-up appointment. You were seen and evaluated today in regards to left elbow pain following injury at home. Discussed this with treatment for a left elbow sprain no blunt force trauma or concern for fracture at this time. Continue to rest ice and elevate the left elbow as needed for pain or swelling continue ibuprofen up to 800 mg 3 times daily or every 8 hours as needed for pain and swelling. Make sure you eat when taking ibuprofen as it can cause upset stomach. Continue to monitor your symptoms despite resting icing elevating over the next week to 2 weeks. Follow-up with primary care provider or orthopedic referral. You may return for any worsening or discussed symptoms. 2. BMI 50.0-59.9, adult (Z68.43: Body mass index [BMI] 50.0-59.9, adult) The standard range for ages 18 and older is >=18.5 and < 25 kg/m2. Your BMI today was above this range, this falls in the overweight to obese category and there are medical benefits to weight loss. We can offer counselling, referral, and/or medical support in addressing this problem. Your BMI and weight management will be followed at subsequent visits. 3. Morbid obesity (E66.01: Morbid (severe) obesity due to excess calories) This healthy diet and exercise with the patient she is understanding. Non-smoker (Z78.9: Other specified health status) Follow-up With When Contact Information [facility]LA[facility] [address] [address] [place] [address] Additional Instructions: Patient Education BMI for Adults Elastic Bandage and RICE Therapy Elbow Sprain Problem List/Past Medical History Ongoing Acute URI Clostridium difficile diarrhea Diverticulitis Loss of taste Lumbago Lumbar radiculitis Historical Appendectomy Depression Migraine Procedure/Surgical History section (07/22/2021), Flexible sigmoidoscopy (12/10/2019), Excision of pilonidal cyst or sinus; simple (08/16/2017), Appendectomy (08/14/2011). Medications citalopram 20 mg Tab, 20 mg= 1 tab(s), Oral, Daily Pepcid 20 mg Tab, 20 mg= 1 tab(s), Oral, Daily, Not taking Zofran 4 mg Tab, 4 mg= 1 tab(s), Oral, q8hr, PRN, Not taking Allergies amoxicillin (Hives) penicillins (Hives) Social History Alcohol - Denies Alcohol Use, 08/15/2017 Current, denies, (more content not included)... Normal [facility] Comment on above: Result Comment: Elec tronically Signed By: Anders VICTORIA, Madhu Ac\.br\Date and Time Signed: 02/16/23 10:31 EDT Patient Educationon 02-17-20 Patient Education Nutrition BMI for Adults What is BMI? Body mass index (BMI) is a number that is calculated from a person's weight and height. BMI can help estimate how much of a person's weight is composed of fat. BMI does not measure body fat directly. Rather, it is an alternative to procedures that directly measure body fat, which can be difficult and expensive. BMI can help identify people who may be at higher risk for certain medical problems. What are BMI measurements used for? BMI is used as a screening tool to identify possible weight problems. It helps determine whether a person is obese, overweight, a healthy weight, or underweight. BMI is useful for: ? Identifying a weight problem that may be related to a medical condition or may increase the risk for medical problems. ? Promoting changes, such as changes in diet and exercise, to help reach a healthy weight. BMI screening can be repeated to see if these changes are working. How is BMI calculated? BMI involves measuring your weight in relation to your height. Both height and weight are measured, and the BMI is calculated from those numbers. This can be done either in [place] ([place] or metric measurements. Note that charts and online BMI calculators are available to help you find your BMI quickly and easily without having to do these calculations yourself. To calculate your BMI in [place] ([place] measurements: 1. Measure your weight in pounds (lb). 2. Multiply the number of pounds by 703. ? For example, for a person who weighs 180 lb, multiply that number by 703, which equals 126,540. 3. Measure your height in inches. Then multiply that number by itself to get a measurement called inches squared. ? For example, for a person who is 70 inches tall, the inches squared measurement is 70 inches x 70 inches, which equals 4,900 inches squared. 4. Divide the total from step 2 (number of lb x 703) by the total from step 3 (inches squared): 126,540 ? 4,900 = 25.8. This is your BMI. To calculate your BMI in metric measurements: 1. Measure your weight in kilograms (kg). 2. Measure your height in meters (m). Then multiply that number by itself to get a measurement called meters squared. ? For example, for a person who is 1.75 m tall, the meters squared measurement is 1.75 m x 1.75 m, which is equal to 3.1 meters squared. 3. Divide the number of kilograms (your weight) by the meters squared number. In this example: 70 ? 3.1 = 22.6. This is your BMI. What do the results mean? BMI charts are used to identify whether you are underweight, normal weight, overweight, or obese. The following guidelines will be used: ? Underweight: BMI less than 18.5. ? Normal weight: BMI between 18.5 and 24.9. ? Overweight: BMI between 25 and 29.9. ? Obese: BMI of 30 or above. Keep these notes in mind: ? Weight includes both fat and muscle, so someone with a muscular build, such as an athlete, may have a BMI that is higher than 24.9. In cases like these, BMI is not an accurate measure of body fat. ? To determine if excess body fat is the cause of a BMI of 25 or higher, further assessments may need to be done by a health care provider. ? BMI is usually interpreted in the same way for men and women. Where to find more information For more information about BMI, including tools to quickly calculate your BMI, go to these websites: ? Centers for Disease Control and Prevention: www.cdc.gov ? [place] [employer]: www.heart.org ? National Heart, Lung, and Blood [place]: www.nhlbi.nih.gov Summary ? Body mass index (BMI) is a number that is calculated from a person's weight and height. ? BMI may help estimate how much of a person's weight is composed of fat. BMI can help identify those who may be at higher risk for certain medical problems. ? BMI can be measured using [place]i measurements or metric measurements. ? BMI charts are used to identify whether you are underweight, normal weight, overweight, or obese. This information is not intended to replace advice given to you by your health care provider. Make sure you discuss any questions you have with your health care provider. Document Revised: 06/16/2020 Document Reviewed: 04/23/2020 [employer] Patient Education ? 2022 [employer] Orthopedics Elastic Bandage and RICE Therapy Elastic bandages come in different shapes and sizes. They generally provide support to your injury and reduce swelling while you are healing, but they can perform different functions. Your health care provider will help you to decide what is best for your protection, recovery, or rehabilitation after an injury. The routine care of many injuries includes rest, ice, compression, and elevation (RICE therapy). RICE therapy is often recommended for injuries to soft tissues, such as muscle strain, sprains, bruises, and overuse injuries. It can also be used for some bone injuries. Using RICE therapy can help t (more content not included)... Normal [facility] Covid-19 PCR (CVDTBH)on SARS-CoV-2 (COVID-19) RNA HILDA+probe Ql (Unsp spec) Not detected Normal NOT DETECTED [facility] Comment on above: Result Comment: This test is not yet approved or cleared by the [place] FDA. When there are no FDA-approved or cleared tests available, and other criteria are met, FDA can make tests available under an emergency access mechanism called an Emergency Use Authorization (EUA). The EUA for this test is supported by the [place] of Health and Human Service's (HHS's) declaration that circumstances exist to justify the emergency use of in vitro diagnostics for the detection and/or diagnosis of the virus that causes COVID-19. This EUA will remain in effect (meaning this test can be used) for the duration of the COVID-19 declaration justifying emergency of IVDs, unless it is terminated or revoked by FDA (after which the test may no longer be used). When diagnostic testing is negative, the possibility of a false negative should be considered in the context of a patient's recent exposures and the presence of clinical signs and symptoms consistent with SARS-CoV-2. Performed By: #### C BC #### [facility] [address] [address] [address] Zari Butcher CBC AUTO DIFFon 11-07-2022 BASO # 0.0 103/ul Normal 0.0-0.1 [facility] Comment on above: Performed By: #### C BC ####[facility] [address] [address]Dr. Zari Butcher Basophils/100 WBC (Bld) 0.4 % Normal 0.2-2.0 [facility] Comment on above: Performed By: #### C BC ####[facility] [address] [address]Dr. Zari Butcher EO # 0.3 103/ul Normal 0.0-0.7 [facility] Comment on above: Performed By: #### C BC ####[facility] [address] [address]DrFrancesca Butcher Eosinophils/100 WBC (Bld) 2.9 % Normal 0.9-7.0 [facility] Comment on above: Performed By: #### C BC ####[facility] [address] [address]DrFrancesca Butcher Erythrocyte distribution width (RBC) [Ratio] 13.9 % Normal 11.0-15.0 [facility] Comment on above: Performed By: #### C BC ####[facility] [address] [address]Dr. Zari Butcher Hematocrit (Bld) [Volume fraction] 38.4 % Normal 36.0-48.0 [facility] Comment on above: Performed By: #### C BC ####[facility] [address]sw[address] [place], [place] [address]Dr. Zari Butcher Hemoglobin (Bld) [Mass/Vol] 12.0 g/dL Normal 12.0-16.0 [facility] Comment on above: Performed By: #### C BC ####[facility] K[address] [place], [place] [address]Dr. Franchescacarolyn Butcher IG # 0.03 10e3/ul Normal 0.00-0.03 [facility] Comment on above: Performed By: #### C BC ####[facility] [address] [place], [place] [address]Dr. Franchescacarolyn Butcher IG % 0.3 % Normal 0.0-0.5 [facility] Comment on above: Performed By: #### C BC ####[facility] [address] [place], [place] [address]DrFrancesca Zari Butcher LYMPH # 2.9 103/ul Normal 1.2-3.8 [facility] Comment on above: Performed By: #### C BC ####[facility] F[address] [place], [place] [address]DrFrancesca Franchescacarolyn Butcher Lymphocytes/100 WBC (Bld) 30.5 % Normal 20.5-60.0 [facility] Comment on above: Performed By: #### C BC ####[facility] [address] [place], [place] [address]DrFrancesca Franchescacarolyn Butcher MANUAL DIFF REQ NO Normal [facility] Comment on above: Performed By: #### C BC ####[facility] Sz[address] [place], [place] [address]DrFrancesca Franchescacarolyn Butcher MCH (RBC) [Entitic mass] 25.8 pg Critically low 26.7-34.0 [facility] Comment on above: Performed By: #### C BC ####[facility] [address] [address]Dr. Zari Butcher MCHC (RBC) [Mass/Vol] 31.3 g/dL Normal 29.9-35.2 [facility] Comment on above: Performed By: #### C BC ####[facility] P[address]axw[address] [place], [place] [address]DrFrancesca Butcher MCV (RBC) [Entitic vol] 82.4 fL Normal 81.0-99.0 [facility] Comment on above: Performed By: #### C BC ####[facility] Sr[address]juwf[address] [place], [place] [address]DrFrancesca Butcher MONO # 0.5 103/ul Normal 0.3-0.8 [facility] Comment on above: Performed By: #### C BC ####[facility] [address] [place], [place] [address]Dr. Zari Butcher Monocytes/100 WBC (Bld) 5.5 % Normal 1.7-12.0 [facility] Comment on above: Performed By: #### C BC ####[facility] En[address] [place], [place] [address]DrFrancesca Butcher NEUT # 5.7 103/ul Normal 1.4-6.5 [facility] Comment on above: Performed By: #### C BC ####[facility] Abfe[address] [place], [place] [address]DrFrancesca Butcher Neutrophils/100 WBC (Bld) 60.4 % Normal 43.0-75.0 [facility] Comment on above: Performed By: #### C BC ####[facility] [address] [place], [place] [address]DrFrancesca Butcher Platelet mean volume (Bld) [Entitic vol] 10.3 fL Normal 9.5-13.5 [facility] Comment on above: Performed By: #### C BC ####[facility] [address] [place], [place] [address]Dr. Zari Butcher PLT 358 103/ul Normal 150-450 [facility] Comment on above: Performed By: #### C BC ####[facility] [address] [place], [place] [address]Nq. Zari Butcher RBC 4.66 106/ul Normal 4.20-5.40 [facility] Comment on above: Performed By: #### C BC ####[facility] [address] [place], [place] [address]Xa. Zair Butcher WBC 9.5 103/ul Normal 4.0-11.0 [facility] Comment on above: Performed By: #### C BC ####[facility] [address] [place], [place] [address]HkDr. Zari Butcher Covid-19 PCR (CVDTB)on 10-10 SARS-CoV-2 (COVID-19) RNA HILDA+probe Ql (Unsp spec) Not detected Normal NOT DETECTED [facility] Comment on above: Result Comment: This test is not yet approved or cleared by the [place] FDA. When there are no FDA-approved or cleared tests available, and other criteria are met, FDA can make tests available under an emergency access mechanism called an Emergency Use Authorization (EUA). The EUA for this test is supported by the [place] of Health and Human Service's (HHS's) declaration that circumstances exist to justify the emergency use of in vitro diagnostics for the detection and/or diagnosis of the virus that causes COVID-19. This EUA will remain in effect (meaning this test can be used) for the duration of the COVID-19 declaration justifying emergency of IVDs, unless it is terminated or revoked by FDA (after which the test may no longer be used). When diagnostic testing is negative, the possibility of a false negative should be considered in the context of a patient's recent exposures and the presence of clinical signs and symptoms consistent with SARS-CoV-2. Performed By: #### C VDTBH #### [facility] [address] [place], [place] [address] Dr. Zari Butcher PREG QUANT HCGon 11-07-2022 HCG QUANT <1 Normal [facility] Comment on above: Performed By: #### P REGQNT ####[facility] [address] [place], [place] [address]RcDr. Zari Butcher HCG RANGE SEE BELOW Normal [facility] Comment on above: Result Comment: 5-50 0.2-1 WEEK 50-500 1-2 WEEKS 100-5,000 2-3 WEEKS 500-10,000 3-4 WEEKS 1,000-50,000 4-5 WEEKS 10,000-100,000 5-6 WEEKS 15,000-200,000 6-8 WEEKS 10,000-100,000 2-3 MONTHS Performed By: #### P REGQNT ####[facility] [address] [id number]. Zari Butcher CBC AUTO DIFFon 09-21-2022 BASO # 0.0 103/ul Normal 0.0-0.1 [facility] Comment on above: Performed By: #### C BC #### [facility] [address] [address] [address] Zari Butcher Basophils/100 WBC (Bld) 0.3 % Normal 0.2-2.0 [facility] Comment on above: Performed By: #### C BC #### [facility] [address] [address] [address] Zari Butcher EO # 0.8 103/ul Critically high 0.0-0.7 [facility] Comment on above: Performed By: #### C BC #### [facility] [address] [address] [address] Zari Butcher Eosinophils/100 WBC (Bld) 7.5 % Critically high 0.9-7.0 [facility] Comment on above: Performed By: #### C BC #### [facility] [address] [address] [address] Zari Butcher Erythrocyte distribution width (RBC) [Ratio] 14.5 % Normal 11.0-15.0 [facility] Comment on above: Performed By: #### C BC #### [facility] [address] [address] [address] Zari Butcher Hematocrit (Bld) [Volume fraction] 27.9 % Critically low 36.0-48.0 [facility] Comment on above: Performed By: #### C BC #### [facility] [address] [address] [address] Zari Butcher Hemoglobin (Bld) [Mass/Vol] 9.0 g/dL Critically low 12.0-16.0 [facility] Comment on above: Performed By: #### C BC #### [facility] [address] [place] [address] Dr. Zari Butcher IG # 0.06 10e3/ul Critically high 0.00-0.03 [facility] Comment on above: Performed By: #### C BC #### [facility] [address] [place] [address] Dr. Zari Butcher IG % 0.6 % Critically high 0.0-0.5 [facility] Comment on above: Performed By: #### C BC #### [facility] [address] [place] [address] Dr. Zari Butcher LYMPH # 2.6 103/ul Normal 1.2-3.8 [facility] Comment on above: Performed By: #### C BC #### [facility] [address] [place] [address] Dr. Zari Butcher Lymphocytes/100 WBC (Bld) 24.3 % Normal 20.5-60.0 [facility] Comment on above: Performed By: #### C BC #### [facility] [address] [place] [address] Dr. Zari Butcher MANUAL DIFF REQ NO Normal [facility] Comment on above: Performed By: #### C BC #### [facility] [address] [place] [address] Dr. Zari Butcher MCH (RBC) [Entitic mass] 28.0 pg Normal 26.7-34.0 [facility] Comment on above: Performed By: #### C BC #### [facility] [address] [place] [address] Dr. Zari Butcher MCHC (RBC) [Mass/Vol] 32.3 g/dL Normal 29.9-35.2 [facility] Comment on above: Performed By: #### C BC #### [facility] [address] [address] [address] Zari Butcher MCV (RBC) [Entitic vol] 86.9 fL Normal 81.0-99.0 [facility] Comment on above: Performed By: #### C BC #### [facility] [address] [address] [address] Zari Butcher MONO # 0.6 103/ul Normal 0.3-0.8 [facility] Comment on above: Performed By: #### C BC #### [facility] [address] [address] [address] Zari Butcher Monocytes/100 WBC (Bld) 5.3 % Normal 1.7-12.0 [facility] Comment on above: Performed By: #### C BC #### [facility] [address] [address] [address] Zari Butcher NEUT # 6.7 103/ul Critically high 1.4-6.5 [facility] Comment on above: Performed By: #### C BC #### [facility] [address] [address] [address] Zari Butcher Neutrophils/100 WBC (Bld) 62.0 % Normal 43.0-75.0 [facility] Comment on above: Performed By: #### C BC #### [facility] [address] [address] [address] Zari Butcher Platelet mean volume (Bld) [Entitic vol] 10.5 fL Normal 9.5-13.5 [facility] Comment on above: Performed By: #### C BC #### [facility] [address] [address] [address] Zari Butcher PLT 286 103/ul Normal 150-450 [facility] Comment on above: Performed By: #### C BC #### [facility] [address] [address] [address] Zari Butcher RBC 3.21 106/ul Critically low 4.20-5.40 [facility] Comment on above: Performed By: #### C BC #### [facility] [address] [address] [address] Zari Butcher WBC 10.7 103/ul Normal 4.0-11.0 [facility] Comment on above: Performed By: #### C BC #### [facility] [address] [address] [address] Zari Butcher PROF CHEM 8 (BAS METB)on Anion gap [Moles/Vol] 11.1 mmol/L Normal [facility] Comment on above: Performed By: #### B MP ####[facility] [address] [address]DrFrancesca Butcher Calcium [Mass/Vol] 8.4 mg/dL Critically low 8.5-10.1 [facility] Comment on above: Performed By: #### B MP ####[facility] [address] [address]DrFrancesca Butcher Chloride [Moles/Vol] 105 mmol/L Normal 98-107 [facility] Comment on above: Performed By: #### B MP ####[facility] [address] [address]DrFrancesca Butcher CO2 [Moles/Vol] 26.2 mmol/L Normal 21.0-32.0 [facility] Comment on above: Performed By: #### B MP ####[facility] [address] [address]DrFrancesca Butcher Creatinine [Mass/Vol] 0.49 mg/dL Critically low 0.55-1.02 [facility] Comment on above: Performed By: #### B MP ####[facility] [address] [address]DrFrancesca Butcher EGFR-AF CITIZEN OF [place] >60 Normal >=60 [facility] Comment on above: Performed By: #### B MP ####[facility] [address] [address]Dr. Zari Butcher EGFR-NON AF CITIZEN OF [place] >60 Normal >=60 [facility] Comment on above: Performed By: #### B MP ####[facility] [address] [address]Dr. Zari Butcher Glucose [Mass/Vol] 75 mg/dL Normal 74-106 [facility] Comment on above: Performed By: #### B MP ####[facility] [address] [address]Dr. Zari Butcher Potassium [Moles/Vol] 3.3 mmol/L Critically low 3.5-5.1 [facility] Comment on above: Performed By: #### B MP ####[facility] [address] [address]Dr. Zari Butcher Sodium [Moles/Vol] 139 mmol/L Normal 136-145 [facility] Comment on above: Performed By: #### B MP ####[facility] [address] [address]Dr. Zari Butcher Urea nitrogen [Mass/Vol] 7.0 mg/dL Normal 7.0-18.0 [facility] Comment on above: Performed By: #### B MP ####[facility] [address] [address]Dr. Zari Butcher Urea nitrogen/Creatinine [Mass ratio] 14.3 mg/mg Normal [facility] Comment on above: Performed By: #### B MP ####[facility] [address] [address]Dr. Zari Butcher CBC AUTO DIFFon 09-19-2022 BASO # 0.0 103/ul Normal 0.0-0.1 [facility] Comment on above: Performed By: #### C BC #### [facility] [address] [address] [address] Zari Butcher Basophils/100 WBC (Bld) 0.3 % Normal 0.2-2.0 [facility] Comment on above: Performed By: #### C BC #### [facility] [address] [address] [address] Zari Butcher EO # 0.2 103/ul Normal 0.0-0.7 [facility] Comment on above: Performed By: #### C BC #### [facility] [address] [place] [address] Dr. Zari Butcher Eosinophils/100 WBC (Bld) 1.5 % Normal 0.9-7.0 [facility] Comment on above: Performed By: #### C BC #### [facility] [address] [place] [address] Dr. Zari Butcher Erythrocyte distribution width (RBC) [Ratio] 14.9 % Normal 11.0-15.0 [facility] Comment on above: Performed By: #### C BC #### [facility] [address] [place] [address] Dr. Zari Butcher Hematocrit (Bld) [Volume fraction] 27.3 % Critically low 36.0-48.0 [facility] Comment on above: Performed By: #### C BC #### [facility] [address] [place] [address] Dr. Zari Buthcer Hemoglobin (Bld) [Mass/Vol] 8.7 g/dL Critically low 12.0-16.0 [facility] Comment on above: Performed By: #### C BC #### [facility] [address] [place] [address] Dr. Zari Butcher IG # 0.05 10e3/ul Critically high 0.00-0.03 [facility] Comment on above: Performed By: #### C BC #### [facility] [address] [place] [address] Dr. Zari Butcher IG % 0.4 % Normal 0.0-0.5 [facility] Comment on above: Performed By: #### C BC #### [facility] [address] [place] [address] Dr. Zari Butcher LYMPH # 2.9 103/ul Normal 1.2-3.8 [facility] Comment on above: Performed By: #### C BC #### [facility] [address] [place] [address] Dr. Zari Butcher Lymphocytes/100 WBC (Bld) 21.6 % Normal 20.5-60.0 [facility] Comment on above: Performed By: #### C BC #### [facility] [address] [place] [address] Dr. Zari Butcher MANUAL DIFF REQ NO Normal [facility] Comment on above: Performed By: #### C BC #### [facility] [address] [place] [address] Dr. Zari Butcher MCH (RBC) [Entitic mass] 27.5 pg Normal 26.7-34.0 [facility] Comment on above: Performed By: #### C BC #### [facility] [address] [place] [address] Dr. Zari Butcher MCHC (RBC) [Mass/Vol] 31.9 g/dL Normal 29.9-35.2 [facility] Comment on above: Performed By: #### C BC #### [facility] [address] [place] [address] Dr. Zari Butcher MCV (RBC) [Entitic vol] 86.4 fL Normal 81.0-99.0 [facility] Comment on above: Performed By: #### C BC #### [facility] [address] [place] [address] Dr. Zari Butcher MONO # 0.7 103/ul Normal 0.3-0.8 [facility] Comment on above: Performed By: #### C BC #### [facility] [address] [place] [address] Dr. Zari Butcher Monocytes/100 WBC (Bld) 5.5 % Normal 1.7-12.0 [facility] Comment on above: Performed By: #### C BC #### [facility] [address] [place] [address] Dr. Zari Butcher NEUT # 9.4 103/ul Critically high 1.4-6.5 [facility] Comment on above: Performed By: #### C BC #### [facility] [address] [place] [address] Dr. Zari Butcher Neutrophils/100 WBC (Bld) 70.7 % Normal 43.0-75.0 [facility] Comment on above: Performed By: #### C BC #### [facility] [address] [place] [address] Dr. Zari Butcher Platelet mean volume (Bld) [Entitic vol] 10.8 fL Normal 9.5-13.5 [facility] Comment on above: Performed By: #### C BC #### [facility] [address] [place] [address] Dr. Zari Butcher PLT 203 103/ul Normal 150-450 [facility] Comment on above: Performed By: #### C BC #### [facility] [address] [address] [address] Zari Butcher RBC 3.16 106/ul Critically low 4.20-5.40 [facility] Comment on above: Performed By: #### C BC #### [facility] [address] [place] [address] Dr. Zari Butcher WBC 13.3 103/ul Critically high 4.0-11.0 [facility] Comment on above: Performed By: #### C BC #### [facility] [address] [place] [address] Dr. Zari Butcher CBC AUTO DIFFon 09-18-2022 BASO # 0.1 103/ul Normal 0.0-0.1 [facility] Comment on above: Performed By: #### C BC #### [facility] [address] [place] [address] Dr. Zari Butcher Basophils/100 WBC (Bld) 0.4 % Normal 0.2-2.0 [facility] Comment on above: Performed By: #### C BC #### [facility] [address] [place] [address] Dr. Zari Butcher EO # 0.2 103/ul Normal 0.0-0.7 [facility] Comment on above: Performed By: #### C BC #### [facility] [address] [place] [address] Dr. Zari Butcher Eosinophils/100 WBC (Bld) 1.3 % Normal 0.9-7.0 [facility] Comment on above: Performed By: #### C BC #### [facility] [address] [place] [address] Dr. Zari Butcher Erythrocyte distribution width (RBC) [Ratio] 14.6 % Normal 11.0-15.0 [facility] Comment on above: Performed By: #### C BC #### [facility] [address] [place] [address] Dr. Zari Butcher Hematocrit (Bld) [Volume fraction] 37.8 % Normal 36.0-48.0 [facility] Comment on above: Performed By: #### C BC #### [facility] [address] [place] [address] Dr. Zari Butcher Hemoglobin (Bld) [Mass/Vol] 12.4 g/dL Normal 12.0-16.0 [facility] Comment on above: Performed By: #### C BC #### [facility] [address] [place] [address] Dr. Zari Butcher IG # 0.04 10e3/ul Critically high 0.00-0.03 [facility] Comment on above: Performed By: #### C BC #### [facility] [address] [place] [address] Dr. Zari Butcehr IG % 0.3 % Normal 0.0-0.5 [facility] Comment on above: Performed By: #### C BC #### [facility] [address] [place] [address] Dr. Zari Butcher LYMPH # 3.2 103/ul Normal 1.2-3.8 [facility] Comment on above: Performed By: #### C BC #### [facility] [address] [place] [address] Dr. Zari Butcher Lymphocytes/100 WBC (Bld) 24.6 % Normal 20.5-60.0 [facility] Comment on above: Performed By: #### C BC #### [facility] [address] [place] [address] Dr. Zari Butcher MANUAL DIFF REQ NO Normal [facility] Comment on above: Performed By: #### C BC #### [facility] [address] [place] [address] Dr. Zari Butcher MCH (RBC) [Entitic mass] 27.8 pg Normal 26.7-34.0 [facility] Comment on above: Performed By: #### C BC #### [facility] [address] [place] [address] Dr. Zari Butcher MCHC (RBC) [Mass/Vol] 32.8 g/dL Normal 29.9-35.2 [facility] Comment on above: Performed By: #### C BC #### [facility] [address] [place] [address] Dr. Zari Butcher MCV (RBC) [Entitic vol] 84.8 fL Normal 81.0-99.0 [facility] Comment on above: Performed By: #### C BC #### [facility] [address] [place] [address] Dr. Zari Butcher MONO # 0.8 103/ul Normal 0.3-0.8 [facility] Comment on above: Performed By: #### C BC #### [facility] [address] [place] [address] Dr. Zari Butcher Monocytes/100 WBC (Bld) 6.3 % Normal 1.7-12.0 [facility] Comment on above: Performed By: #### C BC #### [facility] [address] [place] [address] Dr. Zari Butcher NEUT # 8.7 103/ul Critically high 1.4-6.5 [facility] Comment on above: Performed By: #### C BC #### [facility] [address] [place] [address] Dr. Zari Butcher Neutrophils/100 WBC (Bld) 67.1 % Normal 43.0-75.0 [facility] Comment on above: Performed By: #### C BC #### [facility] [address] [place] [address] Dr. Zari Butcher Platelet mean volume (Bld) [Entitic vol] 10.9 fL Normal 9.5-13.5 [facility] Comment on above: Performed By: #### C BC #### [facility] [address] [place] [address] Dr. Zari Butcher PLT 280 103/ul Normal 150-450 [facility] Comment on above: Performed By: #### C BC #### [facility] [address] [place] [address] Dr. Zari Butcher RBC 4.46 106/ul Normal 4.20-5.40 [facility] Comment on above: Performed By: #### C BC #### [facility] [address] [place] [address] Dr. Zari Butcher WBC 13.0 103/ul Critically high 4.0-11.0 [facility] Comment on above: Performed By: #### C BC #### [facility] [address] [place] [address] Dr. Zari Butcher CULTURE URINEon 09-18-2022 CULTURE URINE Culture Observations : NO GROWTH. Normal [facility] Comment on above: Performed By: #### U RCX #### [facility] [address] [place] [address] Dr. Zari Butcher DRUG SCREEN RAPID (URINE)on 09-18-2022 AMP Negative Normal NEGATIVE [facility] Comment on above: Performed By: #### R UBIGG #### [facility] [address] [place] [address] Dr. Zari Butcher BAR Negative Normal NEGATIVE [facility] Comment on above: Performed By: #### R UBIGG #### [facility] [address] [place] [address] Dr. Zari Butcher BUP Negative Normal NEGATIVE [facility] Comment on above: Performed By: #### R UBIGG #### [facility] [address] [place] [address] Dr. Zari Butcher BZO Negative Normal NEGATIVE [facility] Comment on above: Performed By: #### R UBIGG #### [facility] [address] [place] [address] Dr. Zari Butcher AILYN Negative Normal NEGATIVE [facility] Comment on above: Performed By: #### R UBIGG #### [facility] [address] [place] [address] Dr. Zari Butcher CUT-OFFS SEE BELOW Normal [facility] Comment on above: Result Comment: AMP (Amphetamine): 500ng/mL, BAR (Barbituates): 200 ng/mL, BZO (Benzodiazepines): 150 ng/mL, BUP (Buprenorphine): 10 ng/mL, AILYN (Cocaine): 150 ng/mL, mAMP (Methamphetamine): 500 ng/mL, MTD (Methadone): 200 ng/mL, OPI (Opiates): 100 ng/mL, OXY (Oxycodone): 100 ng/mL, PCP (Phencyclidine): 25 ng/mL, PPX (Propoxyphene): 300 ng/mL, THC (Cannabinoids): 50 ng/mL, TCA (Trycyclic Antidepressants): 300 ng/mL Performed By: #### R UBIGG #### [facility] [address] [place] [address] Dr. Zari Butcher DRUG CUT HEADER DRUG CLASS TEST SYST EM CUT-OFF CONCENTRATIONS ARE FOLLOWS: Normal [facility] Comment on above: Performed By: #### R UBIGG #### [facility] [address] [place] [address] Dr. Zari Butcher mAMP Negative Normal NEGATIVE [facility] Comment on above: Performed By: #### R UBIGG #### [facility] [address] [place] [address] Dr. Zari Butcher MTD Negative Normal NEGATIVE [facility] Comment on above: Performed By: #### R UBIGG #### [facility] [address] [place] [address] Dr. Zari Butcher OPI Negative Normal NEGATIVE [facility] Comment on above: Performed By: #### R UBIGG #### [facility] [address] [place] [address] Dr. Zari Butcher OXY Negative Normal NEGATIVE [facility] Comment on above: Performed By: #### R UBIGG #### [facility] [address] [place] [address] Dr. Zrai Butcher PCP Negative Normal NEGATIVE [facility] Comment on above: Performed By: #### R UBIGG #### [facility] [address] [place] [address] Dr. Zari Butcher PPX Negative Normal NEGATIVE [facility] Comment on above: Performed By: #### R UBIGG #### [facility] [address] [address] [address] Zari Butcher TCA Negative Normal NEGATIVE [facility] Comment on above: Performed By: #### R UBIGG #### [facility] [address] [address] [address] Zari Butcher THC Negative Normal NEGATIVE [facility] Comment on above: Performed By: #### R UBIGG #### [facility] [address] [address] [address] Zari Butcher TYPE AND SCREENon 09-18-2022 TYPE AND SCREEN Negative Normal [facility] Comment on above: Performed By: #### T NS ####[facility] [address] [address]Dr. Zari Butcher UA (CLEAN/CATCH) EMULSION OPERATOR/MICRO I F IND.on 09-18-2022 Bilirubin Ql (U) Negative Normal NEGATIVE [facility] Comment on above: Performed By: #### C VDTBH #### [facility] [address] [place] [address] Dr. Zari Butcher Clarity (U) CLEAR Normal CLEAR [facility] Comment on above: Performed By: #### C VDTBH #### [facility] [address] [place] [address] Dr. Zari Butcher Color (U) LT. YELLOW Normal YELLOW [facility] Comment on above: Performed By: #### C VDTBH #### [facility] [address] [place] [address] Dr. Zari Butcher Glucose Ql (U) Negative Normal NEGATIVE [facility] Comment on above: Performed By: #### C VDTBH #### [facility] [address] [place] [address] Dr. Zari Butcher Hemoglobin Ql (U) Negative Normal NEGATIVE [facility] Comment on above: Performed By: #### C VDTBH #### [facility] [address] [place] [address] Dr. Zari Butcher Ketones Ql (U) TRACE Abnormal NEGATIVE [facility] Comment on above: Performed By: #### C VDTBH #### [facility] [address] [place] [address] Dr. Zari Butcher LEUKOCYTES MODERATE Abnormal NEGATIVE [facility] Comment on above: Performed By: #### C VDTBH #### [facility] [address] [place] [address] Dr. Zari Butcher Nitrite Ql (U) Negative Normal NEGATIVE [facility] Comment on above: Performed By: #### C VDTBH #### [facility] [address] [place] [address] Dr. Zari Butcher pH (U) 6.5 [pH] Normal 5-9 [facility] Comment on above: Performed By: #### C VDTBH #### [facility] [address] [place] [address] Dr. Zari Butcher SPEC GRAVITY 1.025 Normal 1.005-<=1.0 25 [facility] Comment on above: Performed By: #### C VDTBH #### [facility] [address] [place] [address] Dr. Zari Butcher UA PROTEIN Negative Normal NEGATIVE/ TRACE [facility] Comment on above: Performed By: #### C VDTBH #### [facility] [address] [place] [address] Dr. Zari Butcher UR MICRO IND INDICATED Normal [facility] Comment on above: Performed By: #### C VDTBH #### [facility] [address] [place] [address] Dr. Zari Butcher Urobilinogen Qn (U) 1.0 {Ashvin'U}/dL Normal 0.2 - 1. 0 [facility] Comment on above: Performed By: #### C VDTBH #### [facility] [address] [place] [address] Dr. Zari Butcher URINE MICROSCOPIC ONLYon BACTERIA LARGE Abnormal NONE SEEN [facility] Comment on above: Performed By: #### C VDTBH #### [facility] [address] [place] [address] Dr. Zari Butcher Bacteria identified Cx Nom (U) INDICATED Normal [facility] Comment on above: Performed By: #### C VDTBH #### [facility] [address] [place] [address] Dr. Zari Butcher CAST NONE SEEN Normal NONE SEEN [facility] Comment on above: Performed By: #### C VDTBH #### [facility] [address] [place] [address] Dr. Zari Butcher Crystals LM Nom (Urine sed) NONE SEEN Normal NONE SEEN [facility] Comment on above: Performed By: #### C VDTBH #### [facility] [address] [place] [address] Dr. Zari Butcher Epithelial cells LM Ql (Urine sed) MANY Abnormal NONE SEEN /RARE [facility] Comment on above: Performed By: #### C VDTBH #### [facility] [address] [place] [address] Dr. Zari Butcher MUCOUS SMALL Abnormal NONE SEEN [facility] Comment on above: Performed By: #### C VDTBH #### [facility] [address] [place] [address] Dr. Zari Butcher RBC 2-5 Abnormal 0-2 [facility] Comment on above: Performed By: #### C VDTBH #### [facility] [address] [place] [address] Dr. Zari Butcher WBC 10-20 Abnormal NONE SEEN [facility] Comment on above: Performed By: #### C VDTBH #### [facility] [address] [place] [address] Dr. Zari Butcher Cov[facility] ([facility]on SARS-CoV-2 (COVID-19) RNA HILDA+probe Ql (Unsp spec) Not detected Normal NOT DETECTED [facility] Comment on above: Result Comment: When diagnostic testing is negative, the possibility of a false negative should be considered in the context of a patient's recent exposures and the presence of clinical signs and symptoms consistent with SARS-CoV-2. This test is not yet approved or cleared by the [place] FDA. When there are no FDA-approved or cleared tests available, and other criteria are met, FDA can make tests available under an emergency access mechanism called an Emergency Use Authorization (EUA). The EUA for this test is supported by the [place] of Health and Human Service's declaration that circumstances exist to justify the emergency use of in vitro diagnostics for the detection and/or diagnosis of the virus that causes COVID-19. This EUA will remain in effect for the duration of the COVID-19 declaration justifying emergency of IVDs, unless it is terminated or revoked by the FDA (after which the test may no longer be used). Performed By: #### C VDTBH #### [facility] [address] [address] [address] Zari Butcher VAGINITIS/VAGINOSIS DNA PROB Jacques 08-31-2022 Nidla species Negative Normal Negative [facility] Comment on above: Performed By: #### C BC #### [facility] [address] [address] [address] Zari Butcher Gardnerella vaginalis Positive Abnormal Negative [facility] Comment on above: Performed By: #### C BC #### [facility] [address] [address] [address] Zari Butcher Trichomonas vaginalis Negative Normal Negative [facility] Comment on above: Performed By: #### C BC #### [facility] [address] [address] [address] Zari Butcher GROUP B STREP CULTUREon 08-09 S. agalactiae Ag Ql (Unsp spec) Culture Observations: NEGATIVE FOR GROUP B STREPTOCOCCUS. Normal [facility] Comment on above: Performed By: #### G BSCX #### [facility] [address] [address] [address] Zari Butcher AMYLASEon 08-21-2022 Amylase [Catalytic activity/Vol] 47 U/L Normal 25-115 [facility] Comment on above: Performed By: #### C MP, RUSTY, LIPA ####[facility] [address] [address]Dr. Zari Butcher CBC AUTO DIFFon 11-14-2022 BASO # 0.0 103/ul Normal 0.0-0.1 [facility] Comment on above: Performed By: #### C BC ####[facility] [address] [address]DrFrancesca Butcher Basophils/100 WBC (Bld) 0.2 % Normal 0.2-2.0 [facility] Comment on above: Performed By: #### C BC ####[facility] [address] [address]DrFrancesca Butcher EO # 0.2 103/ul Normal 0.0-0.7 [facility] Comment on above: Performed By: #### C BC ####[facility] [address] [place], [place] [address]DrFrancesca Butcher Eosinophils/100 WBC (Bld) 1.5 % Normal 0.9-7.0 [facility] Comment on above: Performed By: #### C BC ####[facility] [address] [place], [place] [address]DrFrancesca Butcher Erythrocyte distribution width (RBC) [Ratio] 14.2 % Normal 11.0-15.0 [facility] Comment on above: Performed By: #### C BC ####[facility] [address] [place], [place] [address]DrFrancesca Butcher Hematocrit (Bld) [Volume fraction] 35.6 % Critically low 36.0-48.0 [facility] Comment on above: Performed By: #### C BC ####[facility] [address] [place], [place] [address]DrFrancesca Butcher Hemoglobin (Bld) [Mass/Vol] 11.3 g/dL Critically low 12.0-16.0 [facility] Comment on above: Performed By: #### C BC ####[facility] [address] [place], [place] [address]DrFrancesca Butcher IG # 0.04 10e3/ul Critically high 0.00-0.03 [facility] Comment on above: Performed By: #### C BC ####[facility] [address] [place], [place] [address]Dr. Zari Butcher IG % 0.3 % Normal 0.0-0.5 [facility] Comment on above: Performed By: #### C BC ####[facility] [address] [address]DrFrancesca Butcher LYMPH # 1.7 103/ul Normal 1.2-3.8 [facility] Comment on above: Performed By: #### C BC ####[facility] [address] [address]DrFrancesca Butcher Lymphocytes/100 WBC (Bld) 14.5 % Critically low 20.5-60.0 [facility] Comment on above: Performed By: #### C BC ####[facility] [address] [place], [place] [address]DrFrancesca Butcher MANUAL DIFF REQ NO Normal [facility] Comment on above: Performed By: #### C BC ####[facility] [address] [address]DrFrancesca Butcher MCH (RBC) [Entitic mass] 27.2 pg Normal 26.7-34.0 [facility] Comment on above: Performed By: #### C BC ####[facility] [address] [place], [place] [address]DrFrancesca Butcher MCHC (RBC) [Mass/Vol] 31.7 g/dL Normal 29.9-35.2 [facility] Comment on above: Performed By: #### C BC ####[facility] [address] [place], [place] [address]DrFrancesca Butcher MCV (RBC) [Entitic vol] 85.8 fL Normal 81.0-99.0 [facility] Comment on above: Performed By: #### C BC ####[facility] [address] [place], [place] [address]DrFrancesca Butcher MONO # 0.7 103/ul Normal 0.3-0.8 [facility] Comment on above: Performed By: #### C BC ####[facility] [address] [place], [place] [address]DrFrancesac Butcher Monocytes/100 WBC (Bld) 6.2 % Normal 1.7-12.0 [facility] Comment on above: Performed By: #### C BC ####[facility] [address] [address]DrFrancesca Butcher NEUT # 9.1 103/ul Critically high 1.4-6.5 [facility] Comment on above: Performed By: #### C BC ####[facility] [address] [address]DrFrancesca Butcher Neutrophils/100 WBC (Bld) 77.3 % Critically high 43.0-75.0 [facility] Comment on above: Performed By: #### C BC ####[facility] [address] [address]DrFrancesca Butcher Platelet mean volume (Bld) [Entitic vol] 11.1 fL Normal 9.5-13.5 [facility] Comment on above: Performed By: #### C BC ####[facility] [address] [address]DrFrancesca Butcher PLT 258 103/ul Normal 150-450 [facility] Comment on above: Performed By: #### C BC ####[facility] [address] [address]DrFrancesca Butcher RBC 4.15 106/ul Critically low 4.20-5.40 [facility] Comment on above: Performed By: #### C BC ####[facility] [address] [address]DrFrancesca Butcher WBC 11.8 103/ul Critically high 4.0-11.0 [facility] Comment on above: Performed By: #### C BC ####[facility] [address] [address]DrFrancesca Butcher BASO # 0.0 103/ul Normal 0.0-0.1 [facility] Comment on above: Performed By: #### C VDTB #### [facility] [address] [address] [address] Zari Butcher Basophils/100 WBC (Bld) 0.2 % Normal 0.2-2.0 [facility] Comment on above: Performed By: #### C VDTBH #### [facility] [address] [place] [address] Dr. Zari Butcher EO # 0.3 103/ul Normal 0.0-0.7 [facility] Comment on above: Performed By: #### C VDTBH #### [facility] [address] [place] [address] Dr. Zari Butcher Eosinophils/100 WBC (Bld) 1.4 % Normal 0.9-7.0 [facility] Comment on above: Performed By: #### C VDTBH #### [facility] [address] [place] [address] Dr. Zari Butcher Erythrocyte distribution width (RBC) [Ratio] 14.1 % Normal 11.0-15.0 [facility] Comment on above: Performed By: #### C VDTBH #### [facility] [address] [place] [address] Dr. Zari Butcher Hematocrit (Bld) [Volume fraction] 38.2 % Normal 36.0-48.0 [facility] Comment on above: Performed By: #### C VDTBH #### [facility] [address] [place] [address] Dr. Zari Butcher Hemoglobin (Bld) [Mass/Vol] 12.6 g/dL Normal 12.0-16.0 [facility] Comment on above: Performed By: #### C VDTBH #### [facility] [address] [place] [address] Dr. Zari Butcher IG # 0.08 10e3/ul Critically high 0.00-0.03 [facility] Comment on above: Performed By: #### C VDTBH #### [facility] [address] [place] [address] Dr. Zari Butcher IG % 0.5 % Normal 0.0-0.5 [facility] Comment on above: Performed By: #### C VDTBH #### [facility] [address] [place] [address] Dr. Zari Butcher LYMPH # 1.8 103/ul Normal 1.2-3.8 [facility] Comment on above: Performed By: #### C VDTBH #### [facility] [address] [place] [address] Dr. Zari Butcher Lymphocytes/100 WBC (Bld) 10.1 % Critically low 20.5-60.0 [facility] Comment on above: Performed By: #### C VDTBH #### [facility] [address] [place] [address] Dr. Zari Butcher MANUAL DIFF REQ NO Normal [facility] Comment on above: Performed By: #### C VDTBH #### [facility] [address] [place] [address] Dr. Zari Butcher MCH (RBC) [Entitic mass] 27.6 pg Normal 26.7-34.0 [facility] Comment on above: Performed By: #### C VDTBH #### [facility] [address] [place] [address] Dr. Zari Butcher MCHC (RBC) [Mass/Vol] 33.0 g/dL Normal 29.9-35.2 [facility] Comment on above: Performed By: #### C VDTBH #### [facility] [address] [place] [address] Dr. Zari Butcher MCV (RBC) [Entitic vol] 83.6 fL Normal 81.0-99.0 [facility] Comment on above: Performed By: #### C VDTBH #### [facility] [address] [place] [address] Dr. Zari Butcher MONO # 1.1 103/ul Critically high 0.3-0.8 [facility] Comment on above: Performed By: #### C VDTBH #### [facility] [address] [place] [address] Dr. Zari Butcher Monocytes/100 WBC (Bld) 6.1 % Normal 1.7-12.0 [facility] Comment on above: Performed By: #### C VDTBH #### [facility] [address] [place] [address] Dr. Zari Butcher NEUT # 14.4 103/ul Critically high 1.4-6.5 [facility] Comment on above: Performed By: #### C VDTBH #### [facility] [address] [place] [address] Dr. Zari Butcher Neutrophils/100 WBC (Bld) 81.7 % Critically high 43.0-75.0 [facility] Comment on above: Performed By: #### C VDTBH #### [facility] [address] [place] [address] Dr. Zari Butcher Platelet mean volume (Bld) [Entitic vol] 10.8 fL Normal 9.5-13.5 [facility] Comment on above: Performed By: #### C VDTBH #### [facility] [address] [place] [address] Dr. Zari Butcher PLT 288 103/ul Normal 150-450 [facility] Comment on above: Performed By: #### C VDTBH #### [facility] [address] [place] [address] Dr. Zari Butcher RBC 4.57 106/ul Normal 4.20-5.40 [facility] Comment on above: Performed By: #### C VDTBH #### [facility] [address] [place] [address] Dr. Zari Butcher WBC 17.6 103/ul Critically high 4.0-11.0 [facility] Comment on above: Performed By: #### C VDTBH #### [facility] [address] [place] [address] Dr. Zari Butcher CULTURE URINEon 08-21-2022 CULTURE URINE Culture Observations : NO GROWTH. Normal [facility] Comment on above: Performed By: #### U RCX #### [facility] [address] [place] [address] Dr. Zari Butcher LIPASEon 08-21-2022 Lipase [Catalytic activity/Vol] 86.0 U/L Normal 73.0-393.0 [facility] Comment on above: Performed By: #### C MP, RUSTY, LIPA ####[facility] [address] [place], [place] [address]LhDr. Zari Butcher PROF 14(COMP METB)on 08-21- 022 Albumin [Mass/Vol] 2.3 g/dL Critically low 3.4-5.0 [facility] Comment on above: Performed By: #### C BC #### [facility] [address] [address] [address] Zari Butcher Albumin/Globulin [Mass ratio] 0.5 {ratio} Normal [facility] Comment on above: Performed By: #### C BC #### [facility] [address] [address] [address] Zari Butcher ALP [Catalytic activity/Vol] 160 U/L Critically high 46-116 [facility] Comment on above: Performed By: #### C BC #### [facility] [address] [place] [address] Dr. Zari Butcher ALT [Catalytic activity/Vol] 28 U/L Normal 14-59 [facility] Comment on above: Performed By: #### C BC #### [facility] [address] [place] [address] Dr. Zari Butcher Anion gap [Moles/Vol] 11.8 mmol/L Normal [facility] Comment on above: Performed By: #### C BC #### [facility] [address] [place] [address] Dr. Zari Butcher AST [Catalytic activity/Vol] 53 U/L Critically high 15-37 [facility] Comment on above: Performed By: #### C BC #### [facility] [address] [address] [address] Zari Butcher Bilirubin [Mass/Vol] 0.6 mg/dL Normal 0.2-1.0 [facility] Comment on above: Performed By: #### C BC #### [facility] [address] [address] [address] Zari Butcher Calcium [Mass/Vol] 8.9 mg/dL Normal 8.5-10.1 [facility] Comment on above: Performed By: #### C BC #### [facility] [address] [address] [address] Zari Butcher Chloride [Moles/Vol] 103 mmol/L Normal 98-107 [facility] Comment on above: Performed By: #### C BC #### [facility] [address] [place] [address] Dr. Zari Butcher CO2 [Moles/Vol] 23.7 mmol/L Normal 21.0-32.0 [facility] Comment on above: Performed By: #### C BC #### [facility] [address] [place] [address] Dr. Zari Butcher Creatinine [Mass/Vol] 0.48 mg/dL Critically low 0.55-1.02 [facility] Comment on above: Performed By: #### C BC #### [facility] [address] [place] [address] Dr. Zari Butcher EGFR-AF CITIZEN OF [place]AN[place]U >60 Normal >=60 [facility] Comment on above: Performed By: #### C BC #### [facility] [address] [place] [address] Dr. Zari Butcher EGFR-NON AF CITIZEN OF [place] >60 Normal >=60 [facility] Comment on above: Performed By: #### C BC #### [facility] [address] [place] [address] Dr. Zari Butcher Globulin (S) [Mass/Vol] 4.9 g/dL Normal [facility] Comment on above: Performed By: #### C BC #### [facility] [address] [place] [address] Dr. Zari Butcher Glucose [Mass/Vol] 101 mg/dL Normal 74-106 [facility] Comment on above: Performed By: #### C BC #### [facility] [address] [place] [address] Dr. Zari Butcher Potassium [Moles/Vol] 3.5 mmol/L Normal 3.5-5.1 [facility] Comment on above: Performed By: #### C BC #### [facility] [address] [place] [address] Dr. Zari Butcher Protein [Mass/Vol] 7.2 g/dL Normal 6.4-8.2 [facility] Comment on above: Performed By: #### C BC #### [facility] [address] [place] [address] Dr. Zari Butcher Sodium [Moles/Vol] 135 mmol/L Critically low 136-145 [facility] Comment on above: Performed By: #### C BC #### [facility] [address] [place] [address] Dr. Zari Butcher Urea nitrogen [Mass/Vol] 7.0 mg/dL Normal 7.0-18.0 [facility] Comment on above: Performed By: #### C BC #### [facility] [address] [place] [address] Dr. Zari Butcher Urea nitrogen/Creatinine [Mass ratio] 14.6 mg/mg Normal [facility] Comment on above: Performed By: #### C BC #### [facility] [address] [place] [address] Dr. Zari Butcher SGOTon 08-21-2022 AST [Catalytic activity/Vol] 59 U/L Critically high 15-37 [facility] Comment on above: Performed By: #### C VDTBH #### [facility] [address] [place] [address] Dr. Zari Butcher SGPTon 08-21-2022 ALT [Catalytic activity/Vol] 41 U/L Normal 14-59 [facility] Comment on above: Performed By: #### C VDTBH #### [facility] [address] [place] [address] Dr. Zari Butcher UA (CLEAN/CATCH) EMULSION OPERATOR/MICRO I F IND.on 08-21-2022 Bilirubin Ql (U) Negative Normal NEGATIVE [facility] Comment on above: Performed By: #### R UBIGG #### [facility] [address] [place] [address] Dr. Zari Butcher Clarity (U) CLEAR Normal CLEAR [facility] Comment on above: Performed By: #### R UBIGG #### [facility] [address] [place] [address] Dr. Zari Butcher Color (U) LT. YELLOW Normal YELLOW [facility] Comment on above: Performed By: #### R UBIGG #### [facility] [address] [place] [address] Dr. Zari Butcher Glucose Ql (U) Negative Normal NEGATIVE [facility] Comment on above: Performed By: #### R UBIGG #### [facility] [address] [place] [address] Dr. Zari Butcher Hemoglobin Ql (U) Negative Normal NEGATIVE [facility] Comment on above: Performed By: #### R UBIGG #### [facility] [address] [place] [address] Dr. Zari Butcher Ketones Ql (U) Negative Normal NEGATIVE [facility] Comment on above: Performed By: #### R UBIGG #### [facility] [address] [place] [address] Dr. Zari Butcher LEUKOCYTES SMALL Abnormal NEGATIVE [facility] Comment on above: Performed By: #### R UBIGG #### [facility] [address] [place] [address] Dr. Zari Butcher Nitrite Ql (U) Negative Normal NEGATIVE [facility] Comment on above: Performed By: #### R UBIGG #### [facility] [address] [place] [address] Dr. Zari Butcher pH (U) 7.5 [pH] Normal 5-9 [facility] Comment on above: Performed By: #### R UBIGG #### [facility] [address] [place] [address] Dr. Zari Butcher SPEC GRAVITY 1.015 Normal 1.005-<=1.0 25 [facility] Comment on above: Performed By: #### R UBIGG #### [facility] [address] [place] [address] Dr. Zari Butcher UA PROTEIN Negative Normal NEGATIVE/ TRACE [facility] Comment on above: Performed By: #### R UBIGG #### [facility] [address] [place] [address] Dr. Zari Butcher UR MICRO IND INDICATED Normal [facility] Comment on above: Performed By: #### R UBIGG #### [facility] [address] [place] [address] Dr. Zari Butcher Urobilinogen Qn (U) 4 {Ashvin'U}/dL Abnormal 0.2 - 1.0 [facility] Comment on above: Performed By: #### R UBIGG #### [facility] [address] [place] [address] Dr. Zari Butcher URINE MICROSCOPIC ONLYon BACTERIA SMALL Abnormal NONE SEEN [facility] Comment on above: Performed By: #### R UBIGG #### [facility] [address] [place] [address] Dr. Zari Butcher Bacteria identified Cx Nom (U) INDICATED Normal [facility] Comment on above: Performed By: #### R UBIGG #### [facility] [address] [place] [address] Dr. Zari Butcher CAST NONE SEEN Normal NONE SEEN [facility] Comment on above: Performed By: #### R UBIGG #### [facility] [address] [place] [address] Dr. Zari Butcher Crystals LM Nom (Urine sed) NONE SEEN Normal NONE SEEN [facility] Comment on above: Performed By: #### R UBIGG #### [facility] [address] [place] [address] Dr. Zari Butcher Epithelial cells LM Ql (Urine sed) MANY Abnormal NONE SEEN /RARE [facility] Comment on above: Performed By: #### R UBIGG #### [facility] [address] [place] [address] Dr. Zari Butcher MUCOUS NONE SEEN Normal NONE SEEN [facility] Comment on above: Performed By: #### R UBIGG #### [facility] [address] [place] [address] Dr. Zari Butcher RBC 2-5 Abnormal 0-2 [facility] Comment on above: Performed By: #### R UBIGG #### [facility] [address] [place] [address] Dr. Zari Butcher WBC 5-10 Abnormal NONE SEEN [facility] Comment on above: Performed By: #### R UBIGG #### [facility] [address] [address] [address] Zari Butcher US PREG BIOPHY W NON STRESSo n 08-21-2022 US PREG BIOPHY W NON STRESS EXAMINATION: US PREG BIOPHY W NON STRESS HISTORY: pain COMPARISON: No relevant comparison available. TECHNIQUE: Ultrasound biophysical profile was performed in the radiology department. FINDINGS: BREATHING MOVEMENTS: 2.0 GROSS BODY MOVEMENTS: 2.0 TONE: 2.0 QUALITATIVE AMNIOTIC FLUID VOLUME: 2.0 PRESENTATION: Cephalic HEART RATE: 139.9 bpm H.B./min AMNIOTIC FLUID VOLUME: 12.6 cm cm GESTATIONAL AGE: 35 weeks 0 days CONCLUSION: Total biophysical profile score: 8.0 Electronically authenticated by: KIRSTEN MATA Date: 2022-08-21 16:40 Normal [facility] US PREG PLACENTAon US PREG PLACENTA EXAMINATION: US PREG PLACENTA HISTORY: pain COMPARISON: No relevant comparison available. FINDINGS: position: Cephalic presentation, longitudinal lie Amniotic fluid volume: 12.7 cm. Largest pocket 6.3 cm Placenta: Anterior. Grade 1. No intraplacental or retroplacental echogenic abnormality Heart rate: 1 40 bpm IMPRESSION: Normal appearance of the placenta Electronically authenticated by: KIRSTEN MATA Date: 2022-08-21 11:42 Normal [facility] US PREG INCOMPLETE ANATOMYon 08-08-2022 US PREG INCOMPLETE ANATOMY EXAMINATION: US PREG GROWTH, US PREG INCOMPLETE ANATOMY HISTORY: Excessive growth affecting management of mother COMPARISON: Ultrasound incomplete anatomy 07/06/2022 FINDINGS: Heart Rate: 156.1 bpm Number: 1.0 Position: CEPHALIC Amniotic Fluid Volume: 12.6 cm Maximum Vertical Pocket: 5.4 cm Anatomy: Unremarkable four-chamber heart. Cardiac outflows suboptimal due to position and patient body habitus. BIOMETRY: BPD: 8.6 cm cm; 34 weeks 4 days HC: 30.3 cmcm; 33 weeks 4 days AC: 28.9 cm cm; 32 weeks 6 days FL: 6.2 cm cm; 32 weeks 3 days EFW: 2086.9 grams; 39% FL/AC: 21.6 FL/BPD: 72.9 HC/AC: 1.0 GESTATIONAL AGE: Age by EDC: 33 weeks 0 days TRIP by EDC: 09/25/2022 Age by US: 33 weeks, 3 days TRIP by US: 09/22/2022 IMPRESSION: 1. Single live intrauterine with growth detailed above. 2. Adequate visualization of the four-chamber heart; no appreciable abnormality. 3. Suboptimal visualization of the cardiac outflow tracts due to position and patient body habitus. Electronically authenticated by: ALEE MARTELL Date: 2022-08-08 05:57 Normal [facility] US PREG INCOMPLETE ANATOMYon 07-06-2022 US PREG INCOMPLETE ANATOMY EXAMINATION: US PREG INCOMPLETE ANATOMY HISTORY: Routine care COMPARISON: Ultrasound incomplete anatomy 06/14/2022, ultrasound anatomy 05/16/2022 FINDINGS: Presentation: Cephalic Heart rate: 164 bpm Anatomy: Suboptimal visualization of the cardiac outflow tracts. GA: 20 weeks 3 days TRIP: 09/25/2022 IMPRESSION: 1. Single live intrauterine . 2. Inadequate evaluation of the cardiac outflow tracts secondary to position and patient body habitus. Electronically authenticated by: ALEE MARTELL Date: 2022-07-06 16:19 Normal [facility] US PREG INCOMPLETE ANATOMYon 06-14-2022 US PREG INCOMPLETE ANATOMY EXAMINATION: US PREG INCOMPLETE ANATOMY HISTORY: screening COMPARISON: Ultrasound anatomy 05/16/2022 FINDINGS: Presentation: Cephalic Heart rate: 150 bpm Anatomy: Spine, diaphragm, hard palate, orbits visualized without appreciable abnormality. Inadequately seen: Cardiac outflow tracts due to patient body habitus. GA: 25 weeks 2 days TRIP: 09/25/2022 IMPRESSION: 1. Single live intrauterine without appreciable abnormality of the spine, diaphragm, hard palate, orbits. 2. Suboptimal visualization of cardiac outflow tracts due to patient body habitus. Electronically authenticated by: ALEE MARTELL Date: 2022-06-14 16:20 Normal [facility] GLUCOSE - 1HRon 06-10-2022 Glucose [Mass/Vol] 137 mg/dL Critically high 74-[address] [facility] Comment on above: Performed By: #### R UBIGG #### [facility] [address] [place] [address] Dr. Zari Butcher HEMOGRAM AND PLATELon 2021 Hematocrit (Bld) [Volume fraction] 38.4 % Normal 36.0-48.0 [facility] Comment on above: Performed By: #### R UBIGG #### [facility] [address] [place] [address] Dr. Zari Butcher Hemoglobin (Bld) [Mass/Vol] 12.4 g/dL Normal 12.0-16.0 [facility] Comment on above: Performed By: #### R UBIGG #### [facility] [address] [place] [address] Dr. Zari Butcher MCH (RBC) [Entitic mass] 27.7 pg Normal 26.7-34.0 [facility] Comment on above: Performed By: #### R UBIGG #### [facility] [address] [place] [address] Dr. Zari Butcher MCHC (RBC) [Mass/Vol] 32.3 g/dL Normal 29.9-35.2 [facility] Comment on above: Performed By: #### R UBIGG #### [facility] [address] [place] [address] Dr. Zari Butcher MCV (RBC) [Entitic vol] 85.7 fL Normal 81.0-99.0 [facility] Comment on above: Performed By: #### R UBIGG #### [facility] [address] [place] [address] Dr. Zari Butcher PLT 274 103/ul Normal 150-450 [facility] Comment on above: Performed By: #### R UBIGG #### [facility] [address] [place] [address] Dr. Zari Butcher RBC 4.48 106/ul Normal 4.20-5.40 [facility] Comment on above: Performed By: #### R UBIGG #### [facility] [address] [place] [address] Dr. Zari Butcher WBC 10.5 103/ul Normal 4.0-11.0 [facility] Comment on above: Performed By: #### R UBIGG #### [facility] [address] [place], [place] [id number] Dr. Zari Butcher US PREG ANATOMY SINGLEon US PREG ANATOMY SINGLE EXAMINATION: US P REG ANATOMY SINGLE HISTORY: anatomy study COMPARISON: No relevant comparison available. TECHNIQUE: Transabdominal sonographic examination was performed for obstetrical and evaluation. FINDINGS: Number: 1 Heart Rate: 159.0 bpm H.B. /min Amniotic Fluid Volume: Subjectively normal Placental Location: Anterior, grade 0. Placental edge is 7.2 cm from the os Cervix Length: 4.8 cm, closed Normally visualized anatomy: Cerebellum, choroid plexus, cisterna magna, lateral cerebral ventricles, midline falx, four-chamber heart, stomach, kidneys, bladder, umbilical cord insertion into the abdomen, three-vessel cord, right upper extremity, left upper extremity, right lower extremity, left lower extremity Suboptimally visualized anatomy: Nose/lips, orbits, RVOT, LVOT, diaphragm, spine BIOMETRY: BPD: 5.0 cm 21 weeks 2 days , 54% HC: 18.1 cm 20 weeks 3 days, 16% AC: 16.3 cm 21 weeks 3 days, 52% FL: 3.3 cm 20 weeks 3 days, 20% EFW:388.0 grams; , 14 ounces, 34% FL/AC: 20.4 FL/BPD: 66.3 HC/AC: 1.1 GESTATIONAL AGE: Age by EDC: 21 weeks 1 days TRIP by EDC: 09/25/2022 Age by current US: 20 weeks 6 days TRIP by current US: 09/27/2022 IMPRESSION: Suboptimal visualized anatomy detailed above *Reference: [employer] Practice Guideline for the performance of Obstetric Ultrasound Examinations, July 08, 2007. Electronically authenticated by: KIRSTEN MATA Date: 2022-05-16 18:25 Normal [facility] CHEMISTRYOrdered By: SYSTEM SYSTEM on 05-06-2022 Albumin [Mass/Vol] 3.0 g/dL Low 3.3 - 5.0 gm/dL [facility] Albumin/Globulin [Mass ratio] 0.8 {ratio} Low 1.1 - 2.2 [facility] ALP [Catalytic activity/Vol] 59 [iU]/d Normal 21 - 98 Int._Unit/L [facility] ALT No additional P-5'-P [Catalytic activity/Vol] 12 [iU]/d Normal 6 - 46 Int._Unit/L [facility] Anion gap [Moles/Vol] 13 mmol/L Normal 6 - 16 mEq/L [facility] AST [Catalytic activity/Vol] 12 [iU]/d Normal 5 - 43 Int._Unit/L [facility] Bilirubin [Mass/Vol] 0.3 mg/dL Normal 0.0 - 1 .1 mg/dL [facility] Bilirubin.direct [Mass/Vol] mg/dL Normal 0.1 - 0.4 mg/dL [facility] Bilirubin.indirect [Mass or moles/Vol] Unable to Calculate mg/dL Invalid Interpretation Code 0.1 - 0.9 mg/dL [facility] Calcium [Mass/Vol] 9.3 mg/dL Normal 8.9 - 11. 1 mg/dL [facility] Chloride [Moles/Vol] 104 mmol/L Normal 101 - 1 11 mmol/L [facility] CO2 [Moles/Vol] 23 mmol/L Normal 21 - 31 mmol/L [facility] Creatinine [Mass/Vol] 0.4 mg/dL Low 0.5 - 1.3 mg/dL [facility] GFR/1.73 sq M.predicted among blacks MDRD (S/P/Bld) [Vol rate/Area] mL/min/1.73 m2 Normal >=59mL/min/ 1.73 m2 [facility] Chem S GFR/1.73 sq M.predicted among non-blacks MDRD (S/P/Bld) [Vol rate/Area] mL/min/1.73 m2 Normal >=59mL/min/ 1.73 m2 [facility] Chem S Globulin (S) [Mass/Vol] 3.9 g/dL Normal 1.4 - 4.0 gm/dL [facility] Glucose [Mass/Vol] 88 mg/dL Normal 55 - 199 mg/dL [facility] Lipase [Catalytic activity/Vol] 26 U/L Normal 13 - 58 unit/L [facility] Potassium [Moles/Vol] 3.7 mmol/L Normal 3.5 - 5.3 mmol/L [facility] Protein [Mass/Vol] 6.9 g/dL Normal 6.0 - 7.8 gm/dL [facility] Sodium [Moles/Vol] 136 mmol/L Normal 135 - 145 mmol/L [facility] Urea nitrogen [Mass/Vol] 8 mg/dL Normal 5 - 21 mg/dL [facility] Urea nitrogen/Creatinine [Mass ratio] 20 mg/mg Normal 10 - 20 [facility] HEMATOLOGYOrdered By: SYSTEM SYSTEM on 05-06-2022 Basophils/100 WBC (Bld) 0.7 % Normal 0.0 - 2.0 % [facility] HemeAutoSS Basophils/Leukocytes Auto (Bld) [Pure # fraction] 0.1 E9/L Normal 0.0 - 0.2 E9/L [facility]eAuto[facility] Eosinophils/100 WBC (Bld) 1.3 % Normal 0.0 - 8.0 % [facility]eAutoSS Eosinophils/Leukocytes Auto (Bld) [Pure # fraction] 0.2 E9/L Normal 0.0 - 0.5 E9/L [facility]eAuto[facility] Lymphocytes/100 WBC (Bld) 19.1 % Normal 14.0 - 50.0 % [facility]eAutoSS Lymphocytes/Leukocytes Auto (Bld) [Pure # fraction] 2.6 E9/L Normal 1.0 - 4.0 E9/L [facility]eAutoSS Monocytes/100 WBC (Bld) 5.7 % Normal 4.0 - 14.0 % [facility]eAutoSS Monocytes/Leukocytes Auto (Bld) [Pure # fraction] 0.8 E9/L Normal 0.2 - 1.0 E9/L [facility] Neutrophils/100 WBC (Bld) 73.2 % Normal 36.0 - 75.0 % [facility]eAuto[facility] Neutrophils/Leukocytes Auto (Bld) [Pure # fraction] 10.1 E9/L High 2.0 - 7.5 E9/L [facility]eAuto[facility] HEMATOLOGYOrdered By: Alliso n Solitario on 05-06-2022 Erythrocyte distribution width (RBC) [Ratio] 14.5 % High 10.9 - 14.2 % [facility] Hematocrit (Bld) [Volume fraction] 40.4 % Normal 34.0 - 46.0 % [facility] Hemoglobin (Bld) [Mass/Vol] 13.2 g/dL Normal 12.0 - 16.0 gm/dL [facility] MCH (RBC) [Entitic mass] 27.0 pg Normal 27.0 - 34.0 pg [facility] MCHC (RBC) [Mass/Vol] 32.7 g/dL Normal 31.4 - 36.0 gm/dL [facility] MCV (RBC) [Entitic vol] 82.7 fL Normal 80.0 - 100.0 fL [facility] Platelet mean volume (Bld) [Entitic vol] 9.2 fL Normal 6.4 - 10.8 fL [facility]eAuto[facility] Platelets (Bld) [#/Vol] 267.0 E9/L Normal 150.0 - 500.0 E9/L [facility] RBC (Bld) [#/Vol] 4.9 E12/L Normal 4.3 - 5.9 E12/L [facility] WBC corrected for nucl RBC Auto (Bld) [#/Vol] 13.8 E9/L High 4.0 - 11.0 E9/L [facility] URINALYSISOrdered By: Isis Jerez on 05-06-2022 Bacteria LM Ql (Urine sed) 1+ /HPF Invalid Interpretation Code Trace/HPF [facility] UA Auto SS Bilirubin Ql (U) Negative (05/06/22 1:39 AM) Normal Negative [facility] UA Auto SS Clarity (U) Slightly Cloudy *ABN* (05/06/22 1:39 AM) Invalid Interpretation Code Clear [facility] UA Auto SS Color (U) Yellow (05/06/22 1:39 AM) Normal Yellow [facility] UA Auto SS Epithelial cells.squamous LM.HPF (Urine sed) [#/Area] /[HPF] Normal 0-2/HPF [facility] UA Aut o SS Glucose Test strip (U) [Mass/Vol] Negative (05/06/22 1:39 AM) Normal Negative [facility] UA Auto SS Hemoglobin Ql (U) Negative (05/06/22 1:39 AM) Normal Negative [facility] UA Auto SS Ketones (U) [Mass/Vol] Trace *ABN* (05/06/22 1:39 AM) Invalid Interpretation Code Negative [facility] UA Auto SS [place].plasma/[place] .RBC (Bld) [Mass ratio] 0-3 /HPF Normal 0-3/HPF [facility] UA Auto SS Mucus Ql (Urine sed) 1+ (05/06/22 1:39 AM) Normal [facility] UA Auto SS Nitrite Ql (U) Negative (05/06/22 1:39 AM) Normal Negative [facility] UA Auto SS pH (U) 6.0 *NA* (05/06/22 1:39 AM) Invalid Interpretation Code 5.0 - 9.0 [facility] UA Auto SS Protein (U) [Mass/Vol] Negative (05/06/22 1:39 AM) Normal Negative [facility] UA Auto SS Specific gravity (U) [Rel density] 1.025 *NA* (05/06/22 1:39 AM) Invalid Interpretation Code 1.005 - 1.030 [facility] UA Auto SS UA Spec Desc Clean Catch (05/06/22 1:39 AM) Normal [facility] UA Auto SS Urobilinogen Qn (U) 1.7165741 {Ashvin'U}/dL Normal 0.0 - 1.0 EU/dL [facility] UA Auto SS WBC Auto Ql (U) 1+ *ABN* (05/06/22 1:39 AM) Invalid Interpretation Code Negative [facility] UA Auto SS WBC LM.HPF (Urine sed) [#/Area] 6-15 /HPF Invalid Interpretation Code 0-5/HPF [facility] UA Auto SS AMYLASEon 04-01-2022 Amylase [Catalytic activity/Vol] 36 U/L Normal 25-115 [facility] Comment on above: Performed By: #### C BC #### [facility] [address] [place], [place] [address] Dr. Zari Butcher CBC AUTO DIFFon 04-01-2022 BASO # 0.0 103/ul Normal 0.0-0.1 [facility] Comment on above: Performed By: #### C BC ####[facility] [address] [place], [place] [address]LcFrancesca Butcher Basophils/100 WBC (Bld) 0.2 % Normal 0.2-2.0 [facility] Comment on above: Performed By: #### C BC ####[facility] [address] [id number] Butcher EO # 0.1 103/ul Normal 0.0-0.7 [facility] Comment on above: Performed By: #### C BC ####[facility] [address] [id number]. Zari Butcher Eosinophils/100 WBC (Bld) 1.0 % Normal 0.9-7.0 [facility] Comment on above: Performed By: #### C BC ####[facility] [address] [address]Dr. Zari Butcher Erythrocyte distribution width (RBC) [Ratio] 13.5 % Normal 11.0-15.0 [facility] Comment on above: Performed By: #### C BC ####[facility] [address] [place], [place] [address]Dr. Zari Butcher Hematocrit (Bld) [Volume fraction] 41.9 % Normal 36.0-48.0 [facility] Comment on above: Performed By: #### C BC ####[facility] [address] [place], [place] [address]Dr. Zari Butcher Hemoglobin (Bld) [Mass/Vol] 13.7 g/dL Normal 12.0-16.0 [facility] Comment on above: Performed By: #### C BC ####[facility] [address] [place], [place] [address]Dr. Zari Butcher IG # 0.04 10e3/ul Critically high 0.00-0.03 [facility] Comment on above: Performed By: #### C BC ####[facility] [address] [place], [place] [address]Dr. Zari Butcher IG % 0.4 % Normal 0.0-0.5 [facility] Comment on above: Performed By: #### C BC ####[facility] [address] [place], [place] [address]Dr. Zari Butcher LYMPH # 1.3 103/ul Normal 1.2-3.8 [facility] Comment on above: Performed By: #### C BC ####[facility] [address] [place], [place] [address]Dr. Zari Butcher Lymphocytes/100 WBC (Bld) 12.8 % Critically low 20.5-60.0 [facility] Comment on above: Performed By: #### C BC ####[facility] [address] [id number]. Zari Butcher MANUAL DIFF REQ NO Normal [facility] Comment on above: Performed By: #### C BC ####[facility] [address] [phone]. Zari Butcher MCH (RBC) [Entitic mass] 27.7 pg Normal 26.7-34.0 [facility] Comment on above: Performed By: #### C BC ####[facility] [address] [id number]. Zari Butcher MCHC (RBC) [Mass/Vol] 32.7 g/dL Normal 29.9-35.2 [facility] Comment on above: Performed By: #### C BC ####[facility] [address] [phone]. Zari Butcher MCV (RBC) [Entitic vol] 84.6 fL Normal 81.0-99.0 [facility] Comment on above: Performed By: #### C BC ####[facility] [address] [phone]. Zari Butcher MONO # 0.4 103/ul Normal 0.3-0.8 [facility] Comment on above: Performed By: #### C BC ####[facility] [address] [phone]. Zari Hadley Monocytes/100 WBC (Bld) 4.3 % Normal 1.7-12.0 [facility] Comment on above: Performed By: #### C BC ####[facility] [address] [phone]. Zari Butcher NEUT # 8.1 103/ul Critically high 1.4-6.5 [facility] Comment on above: Performed By: #### C BC ####[facility] [address] [place], [place] [address]Dr. Zari Butcher Neutrophils/100 WBC (Bld) 81.3 % Critically high 43.0-75.0 [facility] Comment on above: Performed By: #### C BC ####[facility] [address] [phone]. Zari Butcher Platelet mean volume (Bld) [Entitic vol] 9.8 fL Normal 9.5-13.5 [facility] Comment on above: Performed By: #### C BC ####[facility] [address] [place] [id number]. Zari Butcher PLT 278 103/ul Normal 150-450 [facility] Comment on above: Performed By: #### C BC ####[facility] [address] [address]Dr. Zari Butcher RBC 4.95 106/ul Normal 4.20-5.40 [facility] Comment on above: Performed By: #### C BC ####[facility] [address] [address]Dr. Zari Butcher WBC 9.9 103/ul Normal 4.0-11.0 [facility] Comment on above: Performed By: #### C BC ####[facility] [address] [address]Dr. Zari Butcher ER URINE PROFILEon 2 Bilirubin Ql (U) Negative Normal NEGATIVE [facility] Comment on above: Performed By: #### C VDTBH #### [facility] [address] [place] [address] Dr. Zari Butcher Clarity (U) CLEAR Normal CLEAR [facility] Comment on above: Performed By: #### C VDTBH #### [facility] [address] [place] [address] Dr. Zari Butcher Color (U) YELLOW Normal YELLOW [facility] Comment on above: Performed By: #### C VDTBH #### [facility] [address] [place] [address] Dr. Zari Butcher ERUJORDEN A micrscopic examina tion will be performed if indicated. Normal [facility] Comment on above: Performed By: #### C VDTBH #### [facility] [address] [place] [address] Dr. Zari Butcher Glucose Ql (U) Negative Normal NEGATIVE [facility] Comment on above: Performed By: #### C VDTBH #### [facility] [address] [address] [address] Zari Butcher Hemoglobin Ql (U) Negative Normal NEGATIVE [facility] Comment on above: Performed By: #### C VDTBH #### [facility] [address] [place] [address] Dr. Zari Butcher Ketones Ql (U) Negative Normal NEGATIVE [facility] Comment on above: Performed By: #### C VDTBH #### [facility] [address] [place] [address] Dr. Zari Butcher LEUKOCYTES Negative Normal NEGATIVE [facility] Comment on above: Performed By: #### C VDTBH #### [facility] [address] [place] [address] Dr. Zari Butcher Nitrite Ql (U) Negative Normal NEGATIVE [facility] Comment on above: Performed By: #### C VDTBH #### [facility] [address] [place] [address] Dr. Zari Butcher pH (U) 5.5 [pH] Normal 5-9 [facility] Comment on above: Performed By: #### C VDTBH #### [facility] [address] [place] [address] Dr. Zari Butcher SPEC GRAVITY >=1.030 Abnormal 1.005-<=1.0 25 [facility] Comment on above: Performed By: #### C VDTBH #### [facility] [address] [place] [address] Dr. Zari Butcher UA PROTEIN Negative Normal NEGATIVE/ TRACE [facility] Comment on above: Performed By: #### C VDTBH #### [facility] [address] [place] [address] Dr. Zari Butcher UR MICRO IND NOT INDICATED Normal [facility] Comment on above: Performed By: #### C VDTBH #### [facility] [address] [place] [address] Dr. Zari Butcher Urobilinogen Qn (U) 2.0 {Ashvin'U}/dL Abnormal 0.2 - 1. 0 [facility] Comment on above: Performed By: #### C VDTBH #### [facility] [address] [place] [address] Dr. Zari Butcher LIPASEon 04-01-2022 Lipase [Catalytic activity/Vol] 56.0 U/L Critically low 73.0-393.0 [facility] Comment on above: Performed By: #### C BC #### [facility] [address] [place] [address] Dr. Zari Butcher PROF 14(COMP METB)on 022 Albumin [Mass/Vol] 2.8 g/dL Critically low 3.4-5.0 [facility] Comment on above: Performed By: #### C BC #### [facility] [address] [place] [address] Dr. Zari Butcher Albumin/Globulin [Mass ratio] 0.6 {ratio} Normal [facility] Comment on above: Performed By: #### C BC #### [facility] [address] [place] [address] Dr. Zari Butcher ALP [Catalytic activity/Vol] 74 U/L Normal 46-116 [facility] Comment on above: Performed By: #### C BC #### [facility] [address] [place] [address] Dr. Zari Butcher ALT [Catalytic activity/Vol] 40 U/L Normal 14-59 [facility] Comment on above: Performed By: #### C BC #### [facility] [address] [place] [address] Dr. Zari Butcher Anion gap [Moles/Vol] 11.5 mmol/L Normal [facility] Comment on above: Performed By: #### C BC #### [facility] [address] [place] [address] Dr. Zari Butcher AST [Catalytic activity/Vol] 18 U/L Normal 15-37 [facility] Comment on above: Performed By: #### C BC #### [facility] [address] [place] [address] Dr. Zari Butcher Bilirubin [Mass/Vol] 0.4 mg/dL Normal 0.2-1.0 [facility] Comment on above: Performed By: #### C BC #### [facility] [address] [address] [address] Zari Butcher Calcium [Mass/Vol] 8.6 mg/dL Normal 8.5-10.1 [facility] Comment on above: Performed By: #### C BC #### [facility] [address] [address] [address] Zari Butcher Chloride [Moles/Vol] 104 mmol/L Normal 98-107 [facility] Comment on above: Performed By: #### C BC #### [facility] [address] [place] [address] Dr. Zari Butcher CO2 [Moles/Vol] 25.2 mmol/L Normal 21.0-32.0 [facility] Comment on above: Performed By: #### C BC #### [facility] [address] [address] [address] Zari Butcher Creatinine [Mass/Vol] 0.48 mg/dL Critically low 0.55-1.02 [facility] Comment on above: Performed By: #### C BC #### [facility] [address] [place] [address] Dr. Zari Butcher EGFR-AF CITIZEN OF [place] >60 Normal >=60 [facility] Comment on above: Performed By: #### C BC #### [facility] [address] [place] [address] Dr. Zari Butcher EGFR-NON AF CITIZEN OF [place] >60 Normal >=60 [facility] Comment on above: Performed By: #### C BC #### [facility] [address] [address] [address] Zari Butcher Globulin (S) [Mass/Vol] 4.5 g/dL Normal [facility] Comment on above: Performed By: #### C BC #### [facility] [address] [place] [address] Dr. Zari Butcher Glucose [Mass/Vol] 100 mg/dL Normal 74-106 [facility] Comment on above: Performed By: #### C BC #### [facility] [address] [address] [address] Zari Butcher Potassium [Moles/Vol] 3.7 mmol/L Normal 3.5-5.1 [facility] Comment on above: Performed By: #### C BC #### [facility] [address] [address] [address] Zari Butcher Protein [Mass/Vol] 7.3 g/dL Normal 6.4-8.2 [facility] Comment on above: Performed By: #### C BC #### [facility] [address] [address] [address] Zari Butcher Sodium [Moles/Vol] 137 mmol/L Normal 136-145 [facility] Comment on above: Performed By: #### C BC #### [facility] [address] [address] [address] Zari Butcher Urea nitrogen [Mass/Vol] 5.0 mg/dL Critically low 7.0-18.0 [facility] Comment on above: Performed By: #### C BC #### [facility] [address] [address] [address] Zari Butcher Urea nitrogen/Creatinine [Mass ratio] 10.4 mg/mg Normal [facility] Comment on above: Performed By: #### C BC #### [facility] [address] [address] [address] Zari Butcher HEP B SURFACE ANTIGEN SCREEN on 03-09-2022 HBsAg Screen Negative Normal Negative [facility] Comment on above: Performed By: #### R UBIGG #### [facility] [address] [address] [address] Zari Butcher HEPATITIS C VIRUS AB W/ REFL EX QUANTon 03-09-2022 HCV AB <0.1 Normal 0.0-0.9 [facility] Comment on above: Performed By: #### R UBIGG #### [facility] [address] [address] [address] Zari Butcher Interpretation: Comment Normal [facility] Comment on above: Result Comment: Nega tive Not infected with HCV, unless recent infection is suspected or other evidence exists to indicate HCV infection. Performed By: #### R UBIGG #### [facility] [address] [place] [address] Dr. Zari Butcher HIV 1 AND 2 WITH REFLEXon HIV Screen 4th Generation wRfx Non-Reactive Normal Non Reactive [facility] Comment on above: Result Comment: HIV Negative HIV-1/HIV-2 antibodies and HIV-1 p24 antigen were NOT detected. There is no laboratory evidence of HIV infection. Performed By: #### R UBIGG #### [facility] [address] [place] [address] Dr. Zari Butcher RPR QUANTon 03-09-2022 Rapid Plasma Reagin, Quant Non-Reactive Normal NonRea<1:1 [facility] Comment on above: Result Comment: Plea se Note: This test does not meet current guidelines for screening and diagnosis of syphilis. This test is intended for following treatment response in patients being treated for syphilis infection. To screen for syphilis infection, a reflex cascade that includes both RPR and a treponema-specific assay should be utilized, such as Treponema pallidum (Syphilis) Screening [place] (505461) or Rapid Plasma Reagin (RPR) Test With Reflex to Quantitative RPR and Confirmatory Treponema pallidum Antibodies (809549). Performed By: #### C BC #### [facility] [address] [place] [address] Dr. Zari Butcher RUBELLA AB IGGon 03-09-2022 Rubella Antibodies, IgG 1.48 index Normal Immune >0.99 [facility] Comment on above: Result Comment: Non- immune <0.90 Equivocal 0.90 - 0.99 Immune >0.99 Performed By: #### R UBIGG #### [facility] [address] [place] [address] Dr. Zari Butcher CBC AUTO DIFFon 03-08-2022 BASO # 0.0 103/ul Normal 0.0-0.1 [facility] Comment on above: Performed By: #### C BC #### [facility] [address] [place] [address] Dr. Zari Butcher Basophils/100 WBC (Bld) 0.3 % Normal 0.2-2.0 [facility] Comment on above: Performed By: #### C BC #### [facility] [address] [place] [address] Dr. Zari Butcher EO # 0.2 103/ul Normal 0.0-0.7 [facility] Comment on above: Performed By: #### C BC #### [facility] [address] [address] [address] Zari Butcher Eosinophils/100 WBC (Bld) 1.7 % Normal 0.9-7.0 [facility] Comment on above: Performed By: #### C BC #### [facility] [address] [place] [address] Dr. Zari Butcher Erythrocyte distribution width (RBC) [Ratio] 13.2 % Normal 11.0-15.0 [facility] Comment on above: Performed By: #### C BC #### [facility] [address] [place] [address] Dr. Zari Butcher Hematocrit (Bld) [Volume fraction] 42.0 % Normal 36.0-48.0 [facility] Comment on above: Performed By: #### C BC #### [facility] [address] [place] [address] Dr. Zari Butcher Hemoglobin (Bld) [Mass/Vol] 13.5 g/dL Normal 12.0-16.0 [facility] Comment on above: Performed By: #### C BC #### [facility] [address] [place] [address] Dr. Zari Butcher IG # 0.04 10e3/ul Critically high 0.00-0.03 [facility] Comment on above: Performed By: #### C BC #### [facility] [address] [place] [address] Dr. Zari Butcher IG % 0.4 % Normal 0.0-0.5 [facility] Comment on above: Performed By: #### C BC #### [facility] [address] [place] [address] Dr. Zari Butcher LYMPH # 2.5 103/ul Normal 1.2-3.8 [facility] Comment on above: Performed By: #### C BC #### [facility] [address] [place] [address] Dr. Zari Butcher Lymphocytes/100 WBC (Bld) 22.6 % Normal 20.5-60.0 [facility] Comment on above: Performed By: #### C BC #### [facility] [address] [place] [address] Dr. Zari Butcher MANUAL DIFF REQ NO Normal [facility] Comment on above: Performed By: #### C BC #### [facility] [address] [place] [address] Dr. Zari Butcher MCH (RBC) [Entitic mass] 27.2 pg Normal 26.7-34.0 [facility] Comment on above: Performed By: #### C BC #### [facility] [address] [place] [address] Dr. Zari Butcher MCHC (RBC) [Mass/Vol] 32.1 g/dL Normal 29.9-35.2 [facility] Comment on above: Performed By: #### C BC #### [facility] [address] [place] [address] Dr. Zari Butcher MCV (RBC) [Entitic vol] 84.5 fL Normal 81.0-99.0 [facility] Comment on above: Performed By: #### C BC #### [facility] [address] [place] [address] Dr. Zari Butcher MONO # 0.6 103/ul Normal 0.3-0.8 [facility] Comment on above: Performed By: #### C BC #### [facility] [address] [place] [address] Dr. Zari Butcher Monocytes/100 WBC (Bld) 5.1 % Normal 1.7-12.0 [facility] Comment on above: Performed By: #### C BC #### [facility] [address] [place] [address] Dr. Zari Butcher NEUT # 7.7 103/ul Critically high 1.4-6.5 [facility] Comment on above: Performed By: #### C BC #### [facility] [address] [address] [address] Zari Butcher Neutrophils/100 WBC (Bld) 69.9 % Normal 43.0-75.0 [facility] Comment on above: Performed By: #### C BC #### [facility] [address] [address] [address] Zari Butcher Platelet mean volume (Bld) [Entitic vol] 10.1 fL Normal 9.5-13.5 [facility] Comment on above: Performed By: #### C BC #### [facility] [address] [address] [address] Zari Butcher PLT 312 103/ul Normal 150-450 [facility] Comment on above: Performed By: #### C BC #### [facility] [address] [place] [address] Dr. Zari Butcher RBC 4.97 106/ul Normal 4.20-5.40 [facility] Comment on above: Performed By: #### C BC #### [facility] [address] [place] [address] Dr. Zari Butcher WBC 11.0 103/ul Normal 4.0-11.0 [facility] Comment on above: Performed By: #### C BC #### [facility] [address] [place] [address] Dr. Zari Butcher CULTURE URINEon 03-08-2022 CULTURE URINE Culture Observations : LIGHT GROWTH OF MIXED GENITAL ALIVIA. NO POTENTIAL PATHOGENS SEEN. Normal [facility] Comment on above: Performed By: #### U RCX ####[facility] [id number] [address]Dr. Zari Butcher GLYCOHEMOGLOBIN A1Con 2021 ADA RECOMMENDATION SEE BELOW Normal [facility] Comment on above: Result Comment: ADA RECOMMENDED LIMIT 4.0 - 6.0 ADA THERAPEUTIC TARGET < 7.0 ACTION SUGGESTED > 7.0 Performed By: #### R UBIGG #### [facility] [address] [address] [address] Zari Butcher Glucose [Mass/Vol] 114 mg/dL Normal [facility] Comment on above: Performed By: #### R UBIGG #### [facility] [address] [address] [address] Zari Butcher HbA1c (Bld) [Mass fraction] 5.6 % Normal 4.5-6.2 [facility] Comment on above: Performed By: #### R UBIGG #### [facility] [address] [address] [address] Zari Butcher TYPE AND SCREENon 03-08-2022 TYPE AND SCREEN Negative Normal [facility] Comment on above: Performed By: #### T NS #### [facility] [address] [place] [address] Dr. Zari Butcher US PREG TVon 02-17-2022 US PREG TV EXAMINATION: US PREG TV HISTORY: Missed period COMPARISON: 07/21/2021 FINDINGS: Transvaginal images Matt intrauterine gestation Gestational sac: 2.95 cm, 7 weeks 6 days CRL: 1.19 cm, 8 weeks 4 days Yolk sac: 4.1 mm Heart rate: 186 bpm Cervix: Closed, 4.2 cm Uterus is normal in appearance, anteverted, anteflexed The ovaries are normal in appearance. The right ovary measures 3.0 x 2.0 x 1.9 cm per the left ovary measures 1.5 x 2.0 x 1.2 cm. Clinical age: 10 weeks 3 days Clinical TRIP: 09/12/2022 Ultrasound age: 8 weeks 4 days Ultrasound TRIP: 09/25/2022 IMPRESSION: Viable matt intrauterine gestation measuring 8 weeks 4 days Electronically authenticated by: KIRSTEN MATA Date: 2022-02-17 10:28 Normal [facility] PREG QUANT HCGon 01-25-2022 HCG QUANT 4078 mIU/mL Normal [facility] Comment on above: Performed By: #### R UBIGG #### [facility] [address] [place] [address] Dr. Zari Butcher HCG RANGE SEE BELOW Normal [facility] Comment on above: Result Comment: 5-50 0-1 WEEK 40-300 1-2 WEEKS 100-1,000 2-3 WEEKS 500-6,000 3-4 WEEKS 5,000-200,000 1-2 MONTHS 10,000-100,000 2-3 MONTHS 3,000-50,000 2ND TRIMESTER 1,000-50,000 3RD TRIMESTER Performed By: #### R UBIGG #### [facility] [address] [place] [address] Dr. Zari Caputo 04-18-2019 [facility]MORGAN Office Visit (BREANNE ) -------- PRUDENCIO MIN ([id number]) 1995 F Date Time Provider Department 04/18/19 9:00 AM MARIN BARTLETT During your visit today, we recorded the following information about you: Pulse Blood pressure Weight Height 87/minute 133/62 137 kg 1.562 m Marin Bartlett MD 04/18/2019 10:41 AM Signed OTONEUROLOGY CONSULTATION Referral source: Andrea Vargas (Placement Assistant), AP* Chief Complaint: Dizziness: Spinning vs swaying Imbalance Headache Pre/syncope ######################## ######################## ################## ######################## ######################## ################## Impressions: Issues of dizziness, imbalance, headache, neck pain and pre/syncope. Likely overlap between a peripheral vestibular disturbance, abnormal upper cervical spine biomechanics, migraine, a tendency toward orthostatic intolerance and possible occipital nerve irritation on the left. Chronic daily headache with elements of chronic migraine and cervicogenic headache. Disorders include: Possible peripheral vestibular disturbance on the left (neurolabyrinthitis) at some point in time, most likely of viral etiology. Patient manifests an asymmetry of upper cervical spine biomechanics. This may be the consequence of a peripheral vestibular disorder and posture. This may underlie issues of cervicalgia and provide a substrate for cervicogenic headache. I am able to provoke a component of patient's dizziness with neck vibration. Cervical spine issues may be complicated by occipital nerve irritation on the left. All of this may have exacerbated a tendency toward migraine with a component of visual-motion sensitivity. This may further influence the neurocardiac axis pushing the patient toward orthostatic intolerance manifest as presyncope and syncope. Gait is somewhat unsteady and likely related to the putative vestibular syndrome Recommendations/Plan: Medications: medrol dosepak in an attempt to break current symptom cycle. Risks and benefits of the medications were discussed with the patient. Neck physical therapy: Sonia Clarkwalmeghann DC. Vestibular rehabilitation afterward. Migraine: - Start magnesium oxide 400mg/day as a migraine supplement. - Handout regarding migraine and diet was given to the patient. - Abortive treatment of headache: ok to continue Ibuprofen no more than 2x/week Further testing: none at this time Medications: Consider a medication such as gabapentin or topiramate I suggest that patient refrain from driving at this time Follow-up: PRN. Patient to call in one week to report status. ######################## ######################## ################## ######################## ######################## ################## ######################## ######################## ################## History: Preceding URI symptoms: No Onset of symptoms: In usual state of health until 08/25. Was sitting at work. Mild dizziness and then LOC (unknown duration). Was confused afterward the rest of the day. Went to talk to her hospital manager as she did not feel well. Sat out on a couch. LOC again. Awoke in the ambulance. Went to the ER. Urine test, blood work / sent home. Has not felt normal since that times. Dizziness 95% of the time. Ongoing issues / gradually worse over time Now: Dizziness: Spinning vs swaying (about equal) On/off Hours 3-4x/week or up to daily No clear triggers Headache (see MCGEE section) Presyncope On/off 5 min 2-3x week No clear triggers Can happen when sitting / standing / laying Syncope - 25-30 episodes, none in about one month Presyncope beforehand / very dizzy (spinning) / legs feels hot LOC - 30 sec Extremely tired afterward / needs to nap Has started when laying, standing, sitting Can have photophobia outside of a MCGEE Especially white lights Few minutes ######################## ######################## ################## # Dizziness # # Inc Dec N/C Visual motion sens. 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: +- (does not drive far / much) # Bending Store: Y (sometimes more problems in [place]) # Upon Up # # Stress x # # Fatigue ?Y # # Time of Day x # ######################## ######################## ################# Vestibular: Dizziness: (see hpi) Imbalance: sometimes / separate from the dizziness Veering: no Falls: Only at times with LOC (to the left - per family) Hearing: some difficulty on the left at times - since 08/25 Tinnitus: intermittent - Ringing x 1 yr Musculosketal Ear: Left - intermittent left water sensation Neck: Pain - posterior / bilateral paracervical - sharp pain - constant x yrs. Headaches: Occasional HAs since 10th grade No n/v/p/p Started 4-5 yrs ago Frontal Sharp Throbbing No n/v P/p Couple of hours to couple of days 3-4x/month Gradually worse over time - more intense, longer, more frequent (no clear change around 08/25 with onset of dizziness) Now: Frontal Sharp Throbbing N/v p/p 1 to a couple of days (ave 1.5 days) 3-4x/week Visual Features: Dots/Spots, Bright - with (or without) headache - 50% of the time - more likely if more severe Aggravators: Scents/Smells, ?Sleep deprivation, ?Fatigue and Stress Alleviators: OTC Meds (ibuprofen 200, 4 tabs - more severe MCGEE - 2x/week) Associated Vestibular Symptoms: more likely to be dizzy when the MCGEE is present Has IUD in. No regular periods ######################## ######################## ################## Review of Systems: General: Energy: sluggish - newer issue Sleep: abnormal Insomnia - Yes - 30 to 120 min x 1yr - not sure why Frequent awakenings - No Weakness: normal Sensory: Arms / hands tingling - on/off - newer issue Visual dysfunction: normal Wears glasses Cardiac: Chest pain: no Orthstatic Intolerance: LOC - see hpi - since 08/25; age 4 - getting ready for a beauty pageant - sitting on the counter / doing her - said mom and then pale / sweaty / LOC x 30 seconds. Presyncope - see hpi Sens to hot showers - none Palp - none Pulmonary: Dyspnea on Exertion: at times - since being less active Psychiatry: Anxiety / Depression: Both / old issue - on celexa - w/ benefit ######################## ######################## ################## The diagnostic work-up for this problem thus far has included: Consultation Dx Date Location ER y PCP y ENT n Neuro [facility] Cards y (not [facility]) GI ######################## ############## Testing Result Date Location Head CT 03/22/18 MRI 09/25/18 (+- contrast) - normal - per report [facility] EEG y normal (per patient) EKG y Echo y TTT y 12/24/18 normal Audio n VNG n ######################## ########### Treatment for current illness: Medications: ibuprofen Procedures/Surgery: PT Other Neck - no VR - no Chiropractic manipulation - no ######################## ######################## ################## Past Medical History: Head / Neck trauma: Has been hit in the head a few times. No LOC. Most recent was hit by a rock covered in mud - fall 2017. Few times with softball and bat. One episode of LOC at 14 - couple of minutes. Dizziness lasted two days. No medical evaluation. 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 Dizziness: Mother - vertigo x 1 Headache: Mother, MGM, PGM - migraine cardiac: PGF, MGF Stroke: No Similar disorders: ######################## ######################## ################## Physical Examination: Comprehensive neurological and otological examinations, including musculoskeletal examination of the cervical spine revealed the following findings: Vitals: BP 133/62 Pulse 87 Ht 156.2 cm (5' 1.5 ) Wt (!) 137 kg (302 lb) BMI 56.14 kg/m? General: Well developed. Well nourished. No acute distress. Pain Behaviors: no pain behaviors observed Carotid examination was normal. General cardiac examination was normal. Mental status examination: Alert and Oriented to time, place and person. Language: fluent speech (limited evaluation) Cranial Nerve exam: Ophthalmologic: Visual hutchinson were normal. Fundoscopic exam was normal. Pupils were symmetric and reactive to light. Eye movements: normal, smooth pursuits, no nystagmus. Symptoms associated w/ eye movements: Patient feel that her eyes do not move well into right superior gaze; this improved with manual cervical traction Otological examination: Tolbert: midline Rinne: normal (AC>BC) Tympanic membranes: normal Finger rub: normal Response to 256 Hz tuning fork: reduced on the left Recruitment: left hyperacusis Facial Strength: symmetric Facial Sensation: Right Left V1 (scalp) Normal Normal V1 Normal Normal V2 Normal Normal V3 Normal Normal Ear (sup.) Normal Reduced Summation to Pinprick (Facial): Right Left V1 - + V2 - + V3 Left Right JESÚS tender mild to moderate none ParaC2 tender mild mild Post. Vertex Normal Normal Normal palatal elevation. Tongue midline. Right Left Oral sensation: Ant Tongue - inc Post Tongue - inc Post Pharynx Cervical spine examination: Position: neutral Flexion: normal and painless Lateral C1 process tenderness: tender on right (mild), none on left Upper Cervical Rotation: Reduced right Sidebend: Reduced left Total Cervical Rotation: normal C1 malrotation: Left Neck Vibration Testing: Right Left Suboccipital + + Swaying / nausea Masseter - + SCM - - after 5 retract (neck) - improvement in dizziness noted Motor Exam: Tone: Normal with no atrophy or fasciculations Tremor : None Pronator Drift: None Normal shoulder shrug. Strength (out of 5): Right Left Hand Intrins 5 5 5th digit abd 5 5 Wrist ext 5 5 Shoulder abd. 5 5 Hip flex 5 5 Knee ext 5 5 Ankle Dorsifl 5 5 Shoulder Flex 5 5 DTR's (out of 4): Right Left BR 0 0 BJ 0 Tr TJ 0 0 KJ Tr to 1+ bilat AJ 1+ to 2+ bilat Plantar resp. not tested not tested Sensory Exam: Gross UE to PP: normal Gross LE to PP: N/T Coordination examination: Hpbpgb-uz-ilva testing was normal bilaterally. Rigx-mz-olli testing was normal bilaterally. Postural stability: Romberg: normal Gait examination: Usual gait: normal Heel walk: normal Toe walk: normal Tandem (Forward): somewhat unsteady Tandem (Reverse): somewhat unsteady ######################## ######################## ################## MCGEE 0 Dizziness 0 Frontal head pressure 3 - 0 w cervical traction No photo / phono ######################## ######################## ################## The patient was personally seen and examined by myself. Marin Bartlett MD [facility] [place] [facility] T33 cc: Andrea Vargas ([facility]), EDITA Chen, * (sent via [employer] - to sec*) (Results of consultation to be transmitted via electronic medical record for those providers who practice within [facility] or with access to [facility] via MD Connect, or via letter) Total time of 81 minutes was spent with the patient regarding the above. Greater than 50% of time was spent on counselling. 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] Chronic migraine without aura, with intractable migraine, so stated, with status migrainosus [G43.711] Imbalance [R26.89] Syncope, unspecified syncope type [R55] Labyrinthitis of left ear [H83.02] Neck pain [M54.2] Order(s):methylPREDNISol one (MEDROL, ALEXANDRA,) 4 mg Dose-PackAs instructed per packageDisp: 1 PackageRfl: 0 Prescriptions as of 04/18/2019 Sig: IBUPROFEN 800 MG TABLET Take 800 mg by mouth as neede* ERGOCALCIFEROL (VITAMIN D2) 5* Take 50,000 Units by mouth on* METHYLPREDNISOLONE 4 MG TABLE* As instructed per package CITALOPRAM 20 MG TABLET daily Problem List As Of Date: 04/18/2019 (None) Prescriptions ordered this encounter Disp Refills Start End METHYLPREDNISOLONE 4 MG TABLETS IN A* 1 Pa* 0 04/18/2019 04/24/2019 Sig: As instructed per package Letter Text Encounter Status:Closed by MARIN BARTLETT MD on 04/18/19 [facility] PROGRESSon 04-18-2019 PROGRESS HNO ID: [id number] Author: Marin Bartlett Service: ? Author Type: Physician Type: Progress Notes Filed: 04/18/2019 10:41 AM Note Text: OTONEUROLOGY CONSULTATION Referral source: Andrea Vargas (Placement Assistant), AP* Chief Complaint: Dizziness: Spinning vs swaying Imbalance Headache Pre/syncope ######################## ######################## ################## ######################## ######################## ################## Impressions: Issues of dizziness, imbalance, headache, neck pain and pre/syncope. Likely overlap between a peripheral vestibular disturbance, abnormal upper cervical spine biomechanics, migraine, a tendency toward orthostatic intolerance and possible occipital nerve irritation on the left. Chronic daily headache with elements of chronic migraine and cervicogenic headache. Disorders include: Possible peripheral vestibular disturbance on the left (neurolabyrinthitis) at some point in time, most likely of viral etiology. Patient manifests an asymmetry of upper cervical spine biomechanics. This may be the consequence of a peripheral vestibular disorder and posture. This may underlie issues of cervicalgia and provide a substrate for cervicogenic headache. I am able to provoke a component of patient's dizziness with neck vibration. Cervical spine issues may be complicated by occipital nerve irritation on the left. All of this may have exacerbated a tendency toward migraine with a component of visual-motion sensitivity. This may further influence the neurocardiac axis pushing the patient toward orthostatic intolerance manifest as presyncope and syncope. Gait is somewhat unsteady and likely related to the putative vestibular syndrome Recommendations/Plan: Medications: medrol dosepak in an attempt to break current symptom cycle. Risks and benefits of the medications were discussed with the patient. Neck physical therapy: STEPHANIA Gann. Vestibular rehabilitation afterward. Migraine: - Start magnesium oxide 400mg/day as a migraine supplement. - Handout regarding migraine and diet was given to the patient. - Abortive treatment of headache: ok to continue Ibuprofen no more than 2x/week Further testing: none at this time Medications: Consider a medication such as gabapentin or topiramate I suggest that patient refrain from driving at this time Follow-up: PRN. Patient to call in one week to report status. ######################## ######################## ################## ######################## ######################## ################## ######################## ######################## ################## History: Preceding URI symptoms: No Onset of symptoms: In usual state of health until 08/25. Was sitting at work. Mild dizziness and then LOC (unknown duration). Was confused afterward the rest of the day. Went to talk to her hospital manager as she did not feel well. Sat out on a couch. LOC again. Awoke in the ambulance. Went to the ER. Urine test, blood work / sent home. Has not felt normal since that times. Dizziness 95% of the time. Ongoing issues / gradually worse over time Now: Dizziness: Spinning vs swaying (about equal) On/off Hours 3-4x/week or up to daily No clear triggers Headache (see MCGEE section) Presyncope On/off 5 min 2-3x week No clear triggers Can happen when sitting / standing / laying Syncope - 25-30 episodes, none in about one month Presyncope beforehand / very dizzy (spinning) / legs feels hot LOC - 30 sec Extremely tired afterward / needs to nap Has started when laying, standing, sitting Can have photophobia outside of a MCGEE Especially white lights Few minutes ######################## ######################## ################## # Dizziness # # Inc Dec N/C Visual motion sens. 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: +- (does not drive far / much) # Bending Store: Y (sometimes more problems in [employer]) # Upon Up # # Stress x # # Fatigue ?Y # # Time of Day x # ######################## ######################## ################# Vestibular: Dizziness: (see hpi) Imbalance: sometimes / separate from the dizziness Veering: no Falls: Only at times with LOC (to the left - per family) Hearing: some difficulty on the left at times - since 08/25 Tinnitus: intermittent - Ringing x 1 yr Musculosketal Ear: Left - intermittent left water sensation Neck: Pain - posterior / bilateral paracervical - sharp pain - constant x yrs. Headaches: Occasional HAs since 10th grade No n/v/p/p Started 4-5 yrs ago Frontal Sharp Throbbing No n/v P/p Couple of hours to couple of days 3-4x/month Gradually worse over time - more intense, longer, more frequent (no clear change around 08/25 with onset of dizziness) Now: Frontal Sharp Throbbing N/v p/p 1 to a couple of days (ave 1.5 days) 3-4x/week Visual Features: Dots/Spots, Bright - with (or without) headache - 50% of the time - more likely if more severe Aggravators: Scents/Smells, ?Sleep deprivation, ?Fatigue and Stress Alleviators: OTC Meds (ibuprofen 200, 4 tabs - more severe MCGEE - 2x/week) Associated Vestibular Symptoms: more likely to be dizzy when the MCGEE is present Has IUD in. No regular periods ######################## ######################## ################## Review of Systems: General: Energy: sluggish - newer issue Sleep: abnormal Insomnia - Yes - 30 to 120 min x 1yr - not sure why Frequent awakenings - No Weakness: normal Sensory: Arms / hands tingling - on/off - newer issue Visual dysfunction: normal Wears glasses Cardiac: Chest pain: no Orthstatic Intolerance: LOC - see hpi - since 08/25; age 4 - getting ready for a beauty pageant - sitting on the counter / doing her - said mom and then pale / sweaty / LOC x 30 seconds. Presyncope - see hpi Sens to hot showers - none Palp - none Pulmonary: Dyspnea on Exertion: at times - since being less active Psychiatry: Anxiety / Depression: Both / old issue - on celexa - w/ benefit ######################## ######################## ################## The diagnostic work-up for this problem thus far has included: Consultation Dx Date Location ER y PCP y ENT n Neuro Georgina Andrea Cards y (not [facility]) GI ######################## ############## Testing Result Date Location Head CT 03/22/18 MRI 09/25/18 (+- contrast) - normal - per report [facility] EEG y normal (per patient) EKG y Echo y TTT y 12/24/18 normal Audio n VNG n ######################## ########### Treatment for current illness: Medications: ibuprofen Procedures/Surgery: PT Other Neck - no VR - no Chiropractic manipulation - no ######################## ######################## ################## Past Medical History: Head / Neck trauma: Has been hit in the head a few times. No LOC. Most recent was hit by a rock covered in mud - fall 2017. Few times with softball and bat. One episode of LOC at 14 - couple of minutes. Dizziness lasted two days. No medical evaluation. 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 Dizziness: Mother - vertigo x 1 Headache: Mother, MGM, PGM - migraine cardiac: PGF, MGF Stroke: No Similar disorders: ######################## ######################## ################## Physical Examination: Comprehensive neurological and otological examinations, including musculoskeletal examination of the cervical spine revealed the following findings: Vitals: BP 133/62 Pulse 87 Ht 156.2 cm (5' 1.5 ) Wt (!) 137 kg (302 lb) BMI 56.14 kg/m? General: Well developed. Well nourished. No acute distress. Pain Behaviors: no pain behaviors observed Carotid examination was normal. General cardiac examination was normal. Mental status examination: Alert and Oriented to time, place and person. Language: fluent speech (limited evaluation) Cranial Nerve exam: Ophthalmologic: Visual hutchinson were normal. Fundoscopic exam was normal. Pupils were symmetric and reactive to light. Eye movements: normal, smooth pursuits, no nystagmus. Symptoms associated w/ eye movements: Patient feel that her eyes do not move well into right superior gaze; this improved with manual cervical traction Otological examination: Tolbert: midline Rinne: normal (AC>BC) Tympanic membranes: normal Finger rub: normal Response to 256 Hz tuning fork: reduced on the left Recruitment: left hyperacusis Facial Strength: symmetric Facial Sensation: Right Left V1 (scalp) Normal Normal V1 Normal Normal V2 Normal Normal V3 Normal Normal Ear (sup.) Normal Reduced Summation to Pinprick (Facial): Right Left V1 - + V2 - + V3 Left Right JESÚS tender mild to moderate none ParaC2 tender mild mild Post. Vertex Normal Normal Normal palatal elevation. Tongue midline. Right Left Oral sensation: Ant Tongue - inc Post Tongue - inc Post Pharynx Cervical spine examination: Position: neutral Flexion: normal and painless Lateral C1 process tenderness: tender on right (mild), none on left Upper Cervical Rotation: Reduced right Sidebend: Reduced left Total Cervical Rotation: normal C1 malrotation: Left Neck Vibration Testing: Right Left Suboccipital + + Swaying / nausea Masseter - + SCM - - after 5 retract (neck) - improvement in dizziness noted Motor Exam: Tone: Normal with no atrophy or fasciculations Tremor : None Pronator Drift: None Normal shoulder shrug. Strength (out of 5): Right Left Hand Intrins 5 5 5th digit abd 5 5 Wrist ext 5 5 Shoulder abd. 5 5 Hip flex 5 5 Knee ext 5 5 Ankle Dorsifl 5 5 Shoulder Flex 5 5 DTR's (out of 4): Right Left BR 0 0 BJ 0 Tr TJ 0 0 KJ Tr to 1+ bilat AJ 1+ to 2+ bilat Plantar resp. not tested not tested Sensory Exam: Gross UE to PP: normal Gross LE to PP: N/T Coordination examination: Nrvvmm-ix-yztu testing was normal bilaterally. Gzda-zo-mtax testing was normal bilaterally. Postural stability: Romberg: normal Gait examination: Usual gait: normal Heel walk: normal Toe walk: normal Tandem (Forward): somewhat unsteady Tandem (Reverse): somewhat unsteady ######################## ######################## ################## MCGEE 0 Dizziness 0 Frontal head pressure 3 - 0 w cervical traction No photo / phono ######################## ######################## ################## The patient was personally seen and examined by myself. Marin Bartlett MD [facility] [place] [facility] T33 cc: Andrea Vargas (Placement Assistant), EDITA Chen, DO * (sent via [employer] - to sec*) (Results of consultation to be transmitted via electronic medical record for those providers who practice within [facility] or with access to [facility] via [facility] Connect, or via letter) Total time of 81 minutes was spent with the patient regarding the above. Greater than 50% of time was spent on counselling. Normal [facility] CNOVon 01-24-2019 CNOV Office Visit (NEADMN ) -------- PRUDENCIO MIN ([id number]) 1995 F Date Time Provider Department 01/24/19 8:45 AM ANDREA VARGAS (FAMILY INDEPENDENCE CASE MANAGER) NEADMN During your visit today, we recorded the following information about you: Pulse Respiration Blood pressure Weight 99/minute 18/minute 121/81 133.4 kg Height 1.575 m Andrea Vargas APRN.ASHWIN 01/24/2019 9:57 AM Signed Prudencio Cindi Min is a 23 year old female. Patient presents with: Established Patient Prudencio is here today for follow up of testing. Lab work was normal. Neuro QSART normal. Neuro Cardio Autonomic Reflex testing normal. EKG normal Echo Normal Tilt table testing was normal. Since our last visit, she has had recurrent episodes where her legs give out. States that she would not lose consciousness. States some room spinning sensation with the events as well as dizziness. States that her legs will feel weak and hot/tingling sensation. States that she does not lose memory of the events and can get up and walk and be fine. Has had two episodes of blacking out and loss of consciousness. States that she had increased dizziness with it. States that she passed out roughly 30 seconds. Was eating prior to the event. [place] nauseated. Was tired after the event. Has to sleep for some time after to recover. Gets hot sensation in her legs. Mother does ask about MS. HOWARD reviewed data reviewed if done COMPASS 31 reviewed as 31 point autonomic review of systems questions THIS NOTE IS FOR AT FIRST FOR MY DOCUMENTATION TO PROVIDE CARE, HELP INSURANCE COMPANY AND COLLEAGUES TO HAVE NEUROLOGICAL CONTEXT OF MY , AND FOR MY PERSONAL RECORDING TO FACILITATE FUTURE CARE BY HAVING A WRITTEN DOCUMENT MEMORY OF OUR CONSULT TOGETHER . THANK YOU FOR UNDERSTANDING THIS OFFICE NOTE IS A PHYSICIAN BASED DOCUMENT FOR COMMUNICATION AND CARE. She is brought in today by her mother and boyfriend. Medications Reviewed citalopram (CELEXA) 20 mg tablet daily ibuprofen (MOTRIN) 800 mg tablet Take 800 mg by mouth as needed. ergocalciferol, vitamin D2, (VITAMIN D) 50,000 unit capsule Take 50,000 Units by mouth once each week. Allergies Reviewed Amoxicillin Rash Not Specified Allergy Past Updates... Penicillins Rash Low Allergy 06/30/2014 PAST MEDICAL HISTORY: There is no problem list on file for this patient. History reviewed. No pertinent surgical history. Social History Socioeconomic History Marital status: Single Spouse name: Not on file Number of children: Not on file Years of education: Not on file Highest education level: Not on file Social Needs Financial resource strain: Not on file Food insecurity - worry: Not on file Food insecurity - inability: Not on file Transportation needs - medical: Not on file Transportation needs - non-medical: Not on file Occupational History Not on file Tobacco Use Smoking status: Never Smoker Smokeless tobacco: Never Used Substance and Sexual Activity Alcohol use: Not on file Drug use: Not on file Sexual activity: Not on file Other Topics Concerns: Not on file Social History Narrative Not on file family history is not on file. GENERAL:No weight loss, malaise or fevers., SEE HPI HEENT:Negative for frequent or significant headaches, No changes in hearing or vision, no nose bleeds or other nasal problems NECK:Negative for lumps, goiter, pain and significant neck swelling RESPIRATORY: Negative for cough, wheezing or shortness of breath. CARDIOVASCULAR: Negative for chest pain, leg swelling or palpitations. GASTROINTESTINAL: Negative for abdominal discomfort, blood in stools or black stools or change in bowel habits GENITOURINARY: No history of dysuria, frequency or incontinence MUSKULOSKELETAL: Negative for joint pain or swelling, back pain or muscle pain. NEUROLOGIC:Negative for focal numbness or weakness, headaches and dizziness or syncope. SKIN:Negative for lesions, rash, and itching. PSYCHIATRIC: Negative for sleep disturbance, mood disorder and recent psychosocial stressors. HEMATOLOGIC/LYMPHATIC/IM MUNOLOGIC:Negative for prolonged bleeding, bruising easily or swollen nodes. ENDOCRINE: Negative for cold or heat intolerance, polyuria, polydipsia and goiter. GLAUCOMA: No 01/24/19 0820 01/24/19 0923 01/24/19 0924 BP: 109/63 130/85 121/81 BP Position: Supine Standing Standing Pulse: 97 104 99 Resp: 18 SpO2: 96% Weight: 133.4 kg (294 lb) Height: 157.5 cm (5' 2 ) General Appearance Patient appears well at the time of this appointment. Cardiovascular Examination: No carotid bruit noted Heart has regular rate and rhythm Pulses equal bilaterally Neurological Examination: Cognition: The patient is alert and oriented times three Lucid and organized in conversation Able to tell detailed medical hx Speech is Normal in fluency volume and clarity Content and Syntax: Normal Comprehension: Normal, able to follow several step commands Cranial Nerves: Pupils are equal and reactive to light. Pupils enlarged (7mm) Extraocular movements are grossly intact Good saccades and pursuits No nystagmus Hearing intact Good upgaze Visual hutchinson are full to confrontation. Facial, motor and sensory exam is symmetric Equal v1,V2, V3 Tongue is in midline. No tongue fasciculation. Palate is upgoing bilaterally SCM and trapezius are full. Shoulder shrug intact ? Motor Exam: ? Upper extremity motor exam is 5/5 in deltoid, 5/5 triceps 5/5biceps, 5/5 wrist extension, and 5/5 hand worm sorter. Finger extensor 5/5. Finger flexor 5/5. Pronation and Supination are full. Full interossei 5/5 ? Lower extremity is 5/5 in IP, 5/5 quadriceps, 5/5 hamstrings, 5/5 EHL, 5/5 TA and 5/5 gastrocnemius. Hip abductors and adductors are 5/5 Toe extensors and flexors are full bilaterally. Foot evertors and inversions are full bilaterally Tone and bulk is normal and preserved bilaterally of arms Tone and bulk is normal and preserved bilaterally of legs No pes cavus, hammer toes, champagne legs ? The patient is without significant pronator drift. ? Sensation: Intact to light touch and temperature /deep pain. Romberg's sign absent ? Reflexes: 2/4triceps, 2/4biceps, 2/4brachioradialis, 2/4knee jerk, 2/4ankle jerk and symmetric Coordination: Finger-to- nose-finger and rlzd-rh-lfwp intact bilaterally. No ataxia of arms. No limb dysmetria of arms and legs. or trunk. BARBARA of pronation and supination, finger and hand tapping intact. Toe tapping intact. There is no asterixis of the hands. No rigidity, cog wheeling, no bradykinesia. No tremors No extrapyramidal findings ? Gait: Normal station and stride. Able to tandem. Able to heel and toe walk. Good arm swing and body turn rises from chair well IMPRESSION/PLAN: Dizziness/Vertigo: Autonomic testing, EKG, Echo, Tilt table all were normal. Lab work normal. Neurological exam stable and normal. Should be evaluated for issue of vertigo and dizziness. Consult to Dr. Marin talbot. During our face to face clinical encounter we discussed my concerns neurologically in terms of diagnosis, impact on health and activities of living, and addressed questions. I tried to reassure the patient and also address questions. I explained to the patient to call if any questions, to review results, and I want to see them return for neurological follow up as mychart as next steps of communication is agreed upon Patient verbalizes understanding and I have addressed concerns and questions at this visit Patient has my contacts, educational material provided, and my chart sign up. After visit summary discussed. I spent 45 minutes in the visit, with more than 50% of the total impo-vg-gtbx time of the visit in counseling / coordination of care. There is no problem list on file for this patient. Office Visit on 01/24/19 - CONSULT TO NEUROLOGY Andrea Vargas MSN, FISHING LINE WINDING MACHINE OPERATOR, LOGGING CREW SUPERVISOR-C 1. This office note has been dictated and may contain minor typographic errors that escaped review 2. The nursing staff and medical assistants are a major part of YOUR TREATMENT TEAM and will be handling your phone calls and inquiries, if any. Unless explicitly told otherwise at the time of your office visit, your study results and ensuing treatment plans will be discussed during your follow-up appointment. If you do not have a follow-up appointment and wish to discuss any issues directly with me, please feel free to obtain one. 3. It is my practice to not fill disability or any other insurance-related forms/documention. All of the office notes, study results, and other pertinent documentation generated as part of your evaluation will be available to you and to your Primary Care Physician (PCP). Use of this material to complete such forms will be at the discretion of your PCP/referring physician Referring Provider: SELF [[id number]] Allergies As of Date: 01/24/2019 Noted Allergy Reaction AMOXICILLIN 2 - Rash PENICILLINS 06/30/2014 2 - Rash Date Reviewed: 01/24/2019 Reviewed by: Andrea Edwards) Georgina - Fully Assessed Reason for Visit: Established Patient [175] Primary Visit Diagnosis:Dizziness [R42] Other Visit Diagnoses:Vertigo [R42] Near syncope [R55] Order(s):CONSULT TO NEUROLOGY [9019] Order #: [id number]: 1 Prescriptions as of 01/24/2019 Sig: CITALOPRAM 20 MG TABLET daily IBUPROFEN 800 MG TABLET Take 800 mg by mouth as neede* ERGOCALCIFEROL (VITAMIN D2) 5* Take 50,000 Units by mouth on* Problem List As Of Date: 01/24/2019 (None) Encounter Status:Closed by ANDREA VARGAS on 01/24/19 Normal [facility] PROGRESSon 01-24-2019 PROGRESS HNO ID: [id number] Author: Andrea Edwards) Georgina Service: ? Author Type: Nurse Practitioner Type: Progress Notes Filed: 01/24/2019 9:57 AM Note Text: Prudencio Min is a 23 year old female. Patient presents with: Established Patient Prudencio is here today for follow up of testing. Lab work was normal. Neuro QSART normal. Neuro Cardio Autonomic Reflex testing normal. EKG normal Echo Normal Tilt table testing was normal. Since our last visit, she has had recurrent episodes where her legs give out. States that she would not lose consciousness. States some room spinning sensation with the events as well as dizziness. States that her legs will feel weak and hot/tingling sensation. States that she does not lose memory of the events and can get up and walk and be fine. Has had two episodes of blacking out and loss of consciousness. States that she had increased dizziness with it. States that she passed out roughly 30 seconds. Was eating prior to the event. [place] nauseated. Was tired after the event. Has to sleep for some time after to recover. Gets hot sensation in her legs. Mother does ask about MSFrancesca HOWARD reviewed data reviewed if done COMPASS 31 reviewed as 31 point autonomic review of systems questions THIS NOTE IS FOR AT FIRST FOR MY DOCUMENTATION TO PROVIDE CARE, HELP INSURANCE COMPANY AND COLLEAGUES TO HAVE NEUROLOGICAL CONTEXT OF MY , AND FOR MY PERSONAL RECORDING TO FACILITATE FUTURE CARE BY HAVING A WRITTEN DOCUMENT MEMORY OF OUR CONSULT TOGETHER . THANK YOU FOR UNDERSTANDING THIS OFFICE NOTE IS A PHYSICIAN BASED DOCUMENT FOR COMMUNICATION AND CARE. She is brought in today by her mother and boyfriend. Medications Reviewed citalopram (CELEXA) 20 mg tablet daily ibuprofen (MOTRIN) 800 mg tablet Take 800 mg by mouth as needed. ergocalciferol, vitamin D2, (VITAMIN D) 50,000 unit capsule Take 50,000 Units by mouth once each week. Allergies Reviewed Amoxicillin Rash Not Specified Allergy Past Updates... Penicillins Rash Low Allergy 06/30/2014 PAST MEDICAL HISTORY: There is no problem list on file for this patient. History reviewed. No pertinent surgical history. Social History Socioeconomic History Marital status: Single Spouse name: Not on file Number of children: Not on file Years of education: Not on file Highest education level: Not on file Social Needs Financial resource strain: Not on file Food insecurity - worry: Not on file Food insecurity - inability: Not on file Transportation needs - medical: Not on file Transportation needs - non-medical: Not on file Occupational History Not on file Tobacco Use Smoking status: Never Smoker Smokeless tobacco: Never Used Substance and Sexual Activity Alcohol use: Not on file Drug use: Not on file Sexual activity: Not on file Other Topics Concerns: Not on file Social History Narrative Not on file family history is not on file. GENERAL:No weight loss, malaise or fevers., SEE HPI HEENT:Negative for frequent or significant headaches, No changes in hearing or vision, no nose bleeds or other nasal problems NECK:Negative for lumps, goiter, pain and significant neck swelling RESPIRATORY: Negative for cough, wheezing or shortness of breath. CARDIOVASCULAR: Negative for chest pain, leg swelling or palpitations. GASTROINTESTINAL: Negative for abdominal discomfort, blood in stools or black stools or change in bowel habits GENITOURINARY: No history of dysuria, frequency or incontinence MUSKULOSKELETAL: Negative for joint pain or swelling, back pain or muscle pain. NEUROLOGIC:Negative for focal numbness or weakness, headaches and dizziness or syncope. SKIN:Negative for lesions, rash, and itching. PSYCHIATRIC: Negative for sleep disturbance, mood disorder and recent psychosocial stressors. HEMATOLOGIC/LYMPHATIC/IM MUNOLOGIC:Negative for prolonged bleeding, bruising easily or swollen nodes. ENDOCRINE: Negative for cold or heat intolerance, polyuria, polydipsia and goiter. GLAUCOMA: No 01/24/19 0820 01/24/19 0923 01/24/19 0924 BP: 109/63 130/85 121/81 BP Position: Supine Standing Standing Pulse: 97 104 99 Resp: 18 SpO2: 96% Weight: 133.4 kg (294 lb) Height: 157.5 cm (5' 2 ) General Appearance Patient appears well at the time of this appointment. Cardiovascular Examination: No carotid bruit noted Heart has regular rate and rhythm Pulses equal bilaterally Neurological Examination: Cognition: The patient is alert and oriented times three Lucid and organized in conversation Able to tell detailed medical hx Speech is Normal in fluency volume and clarity Content and Syntax: Normal Comprehension: Normal, able to follow several step commands Cranial Nerves: Pupils are equal and reactive to light. Pupils enlarged (7mm) Extraocular movements are grossly intact Good saccades and pursuits No nystagmus Hearing intact Good upgaze Visual hutchinson are full to confrontation. Facial, motor and sensory exam is symmetric Equal v1,V2, V3 Tongue is in midline. No tongue fasciculation. Palate is upgoing bilaterally SCM and trapezius are full. Shoulder shrug intact ? Motor Exam: ? Upper extremity motor exam is 5/5 in deltoid, 5/5 triceps 5/5biceps, 5/5 wrist extension, and 5/5 hand worm sorter. Finger extensor 5/5. Finger flexor 5/5. Pronation and Supination are full. Full interossei 5/5 ? Lower extremity is 5/5 in IP, 5/5 quadriceps, 5/5 hamstrings, 5/5 EHL, 5/5 TA and 5/5 gastrocnemius. Hip abductors and adductors are 5/5 Toe extensors and flexors are full bilaterally. Foot evertors and inversions are full bilaterally Tone and bulk is normal and preserved bilaterally of arms Tone and bulk is normal and preserved bilaterally of legs No pes cavus, hammer toes, champagne legs ? The patient is without significant pronator drift. ? Sensation: Intact to light touch and temperature /deep pain. Romberg's sign absent ? Reflexes: 2/4triceps, 2/4biceps, 2/4brachioradialis, 2/4knee jerk, 2/4ankle jerk and symmetric Coordination: Finger-to- nose-finger and aypu-ro-wxaj intact bilaterally. No ataxia of arms. No limb dysmetria of arms and legs. or trunk. BARBARA of pronation and supination, finger and hand tapping intact. Toe tapping intact. There is no asterixis of the hands. No rigidity, cog wheeling, no bradykinesia. No tremors No extrapyramidal findings ? Gait: Normal station and stride. Able to tandem. Able to heel and toe walk. Good arm swing and body turn rises from chair well IMPRESSION/PLAN: Dizziness/Vertigo: Autonomic testing, EKG, Echo, Tilt table all were normal. Lab work normal. Neurological exam stable and normal. Should be evaluated for issue of vertigo and dizziness. Consult to Dr. Marin talbot. During our face to face clinical encounter we discussed my concerns neurologically in terms of diagnosis, impact on health and activities of living, and addressed questions. I tried to reassure the patient and also address questions. I explained to the patient to call if any questions, to review results, and I want to see them return for neurological follow up as mychart as next steps of communication is agreed upon Patient verbalizes understanding and I have addressed concerns and questions at this visit Patient has my contacts, educational material provided, and my chart sign up. After visit summary discussed. I spent 45 minutes in the visit, with more than 50% of the total [id number]-zh-[id number] time of the visit in counseling / coordination of care. There is no problem list on file for this patient. Office Visit on 01/24/19 - CONSULT TO NEUROLOGY Andrea Vargas MSN, FISHING LINE WINDING MACHINE OPERATOR, LOGGING CREW SUPERVISOR-C 1. This office note has been dictated and may contain minor typographic errors that escaped review 2. The nursing staff and medical assistants are a major part of YOUR TREATMENT TEAM and will be handling your phone calls and inquiries, if any. Unless explicitly told otherwise at the time of your office visit, your study results and ensuing treatment plans will be discussed during your follow-up appointment. If you do not have a follow-up appointment and wish to discuss any issues directly with me, please feel free to obtain one. 3. It is my practice to not fill disability or any other insurance-related forms/documention. All of the office notes, study results, and other pertinent documentation generated as part of your evaluation will be available to you and to your Primary Care Physician (PCP). Use of this material to complete such forms will be at the discretion of your PCP/referring physician Normal [facility] CNOVon 12-24-2018 CNOV Office Visit (SYNCMN ) -------- PRUDENCIO MIN ([id number]) 1995 F Date Time Provider Department 12/24/18 10:45 AM SYNCOPE OPD NURSE SYNCMN During your visit today, we recorded the following information about you: Vince Ruano RN 12/24/2018 12:12 PM Addendum UNIVERSAL PROTOCOL / SAFETY CHECKLIST Procedure to be performed: [facility]: TILT Sign in Communication: Completed Time Out: Team Confirms the Correct Patient, Correct Procedure, Correct Site and Site Marking, Correct Position (if applicable). Time: 1035 STAFF: Dr. Oconnell Affirmation of Time Out: YES Sign Out Discussion: Completed Vince Ruano RN Orders placed 11/29/2018 by Andrea Vargas CNP Allergies: Amoxicillin; Penicillins Test done in consult with Andrea Vargas CNP Procedure Start Time: 1030 Height 157.5 cm Weight 136.4 kg Patient fasting for 4 hours: Yes Support stockings taken off for procedure: Yes Pain Assessment: Patient states none Comfort Measures: Added pillow for head/shoulders Pacemaker: No IV Placement: 24 gauge angiocath in right forearm by Vince Ruano RN Task Force Monitor med finger cuff on Rhand, Radial arm cuff L arm Baseline: BP 136/92 HR 85 (oscilatory readings) and BP 134/97 (continuous readings) Pre-Max Tilt : 70 degrees 44 min BP 137/90 HR 94 Max Tilt: 70 degrees 45 min BP 140/96 HR 101 Note: Note: Test was stopped due to end of protocol. See Final Report for Diagnosis. IV discontinued at 1156 by Vince Ruano RN . Staff involved in procedure: Vince Leone RN Procedure Finish Time: 1153 Referring Provider: ANDREA VARGAS ([facility]) [[id number]] Allergies As of Date: 12/24/2018 Noted Allergy Reaction AMOXICILLIN 2 - Rash PENICILLINS 06/30/2014 2 - Rash Date Reviewed: 12/24/2018 Reviewed by: Vince Ruano RN - Fully Assessed Primary Visit Diagnosis:Disorder of autonomic nervous system [G90.9] Other Visit Diagnoses:Orthostatic hypotension [I95.1] Orthostatic lightheadedness [R42] Tachycardia [R00.0] Order(s):INTERMITTENT PERIPHERAL DEVICE ([place], [place]) [[id number]] Order #: [id number]: 1 SALINE LOCK DISCONTINUE [[id number]] Order #: [id number]: 1 Prescriptions as of 12/24/2018 Sig: CITALOPRAM 20 MG TABLET daily IBUPROFEN 800 MG TABLET Take 800 mg by mouth as neede* ERGOCALCIFEROL (VITAMIN D2) 5* Take 50,000 Units by mouth on* Problem List As Of Date: 12/24/2018 (None) Encounter Status:Closed by VINCE RUANO RN on 12/24/18 [facility] OBSOLETEon 12-24-2018 OBSOLETE Procedure (NEAU) -------- PRUDENCIO MIN ([id number]) 1995 F Date Time Provider Department 12/24/18 9:15 AM AUTONOMIC 1 NEUR MAIN NEAU During your visit today, we recorded the following information about you: Referring Provider: ANDREA VARGAS ([facility]) [[id number]] Allergies As of Date: 12/24/2018 Noted Allergy Reaction AMOXICILLIN 2 - Rash PENICILLINS 06/30/2014 2 - Rash Date Reviewed: 12/24/2018 Reviewed by: Vince Ruano RN - Fully Assessed Reason for Visit: Procedure [88] Visit Diagnosis:Orthostatic dizziness [R42] Prescriptions as of 12/24/2018 Sig: CITALOPRAM 20 MG TABLET daily IBUPROFEN 800 MG TABLET Take 800 mg by mouth as neede* ERGOCALCIFEROL (VITAMIN D2) 5* Take 50,000 Units by mouth on* Problem List As Of Date: 12/24/2018 (None) Encounter Status:Closed by WAYNE BLAIR MD on 12/25/18 [facility] OBSOLETE Procedure (NEAU) -------- PRUDENCIO MIN ([id number]) 1995 F Date Time Provider Department 12/24/18 7:45 AM AUTONOMIC 1 NEUR MAIN NEAU During your visit today, we recorded the following information about you: Referring Provider: ANDREA VARGAS ([facility]) [[id number]] Allergies As of Date: 12/24/2018 Noted Allergy Reaction AMOXICILLIN 2 - Rash PENICILLINS 06/30/2014 2 - Rash Date Reviewed: 12/24/2018 Reviewed by: Vince Ruano RN - Fully Assessed Reason for Visit: Procedure [88] Visit Diagnosis:Orthostatic lightheadedness [R42] Prescriptions as of 12/24/2018 Sig: CITALOPRAM 20 MG TABLET daily IBUPROFEN 800 MG TABLET Take 800 mg by mouth as neede* ERGOCALCIFEROL (VITAMIN D2) 5* Take 50,000 Units by mouth on* Problem List As Of Date: 12/24/2018 (None) Encounter Status:Closed by WAYNE BLAIR MD on 12/25/18 [facility] PROGRESSon 12-24-2018 PROGRESS HNO ID: [id number] Author: Vince Ruano RN Service: ? Author Type: ? Type: Progress Notes Filed: 12/24/2018 12:12 PM Note Text: UNIVERSAL PROTOCOL / SAFETY CHECKLIST Procedure to be performed: [facility]: TILT Sign in Communication: Completed Time Out: Team Confirms the Correct Patient, Correct Procedure, Correct Site and Site Marking, Correct Position (if applicable). Time: 1035 STAFF: Dr. Mayuga Affirmation of Time Out: YES Sign Out Discussion: Completed Vince Ruano RN Orders placed 11/29/2018 by Andrea Vargas CNP Allergies: Amoxicillin; Penicillins Test done in consult with Andrea Vargas CNP Procedure Start Time: 1030 Height 157.5 cm Weight 136.4 kg Patient fasting for 4 hours: Yes Support stockings taken off for procedure: Yes Pain Assessment: Patient states none Comfort Measures: Added pillow for head/shoulders Pacemaker: No IV Placement: 24 gauge angiocath in right forearm by Vince Ruano RN Task Force Monitor med finger cuff on Rhand, Radial arm cuff L arm Baseline: BP 136/92 HR 85 (oscilatory readings) and BP 134/97 (continuous readings) Pre-Max Tilt : 70 degrees 44 min BP 137/90 HR 94 Max Tilt: 70 degrees 45 min BP 140/96 HR 101 Note: Note: Test was stopped due to end of protocol. See Final Report for Diagnosis. IV discontinued at 1156 by Vince Ruano RN . Staff involved in procedure: Vince Leone RN Procedure Finish Time: 1153 Normal [facility] MIKE Panel 1on 11-29-2018 MIKE by EIA 0.4 OD Ratio Normal [facility] Comment on above: Result Comment: OD R atio is interpreted as follows: Negative <1.0 Positive >=1.0 Performed By: #### C MP, MMA, B12, COPPER, SEPG, CBC, ENAID, ANA1 #### [facility] [address], [place] [address] #### B1VIT #### [facility] [address] [place] [address] [phone] MIKE by EIA, Qual Negative Normal Negative [facility] Comment on above: Performed By: #### C MP, MMA, B12, COPPER, SEPG, CBC, ENAID, ANA1 #### [facility] [address], [place] [address] #### B1VIT #### [facility] [address] [place] [address] [phone] CBCon 11-29-2018 Absolute nRBC <0.01 Normal <0.01 [facility] Comment on above: Performed By: #### C MP, MMA, B12, COPPER, SEPG, CBC, ENAID, ANA1 #### [place] [phone] #### B1VIT #### [facility] [address] [place] [address] [phone] Erythrocyte distribution width (RBC) [Ratio] 14.4 % Normal 11.5-15.0 [facility] Comment on above: Performed By: #### C MP, MMA, B12, COPPER, SEPG, CBC, ENAID, ANA1 #### [place] [phone] #### B1VIT #### [facility] [address] [place] [address] [phone] Hematocrit (Bld) [Volume fraction] 40.5 % Normal 36.0-46.0 [facility] Comment on above: Performed By: #### C MP, MMA, B12, COPPER, SEPG, CBC, ENAID, ANA1 #### [place] [phone] #### B1VIT #### [facility] [address] [place] [address] [phone] Hemoglobin (Bld) [Mass/Vol] 12.6 g/dL Normal 11.5-15.5 [facility] Comment on above: Performed By: #### C MP, MMA, B12, COPPER, SEPG, CBC, ENAID, ANA1 #### [place] [phone] #### B1VIT #### [facility] [address] [place] [address] [phone] MCH (RBC) [Entitic mass] 25.7 pG Low 26.0-34.0 [facility] Comment on above: Performed By: #### C MP, MMA, B12, COPPER, SEPG, CBC, ENAID, ANA1 #### [place] [phone] #### B1VIT #### [facility] [address] [place] [phone] [phone] MCHC (RBC) [Mass/Vol] 31.1 g/dL Normal 30.5-36.0 [facility] Comment on above: Performed By: #### C MP, MMA, B12, COPPER, SEPG, CBC, ENAID, ANA1 #### [place] [phone] #### B1VIT #### [facility] [address] [place] [phone] MCV (RBC) [Entitic vol] 82.7 fL Normal 80.0-100.0 [facility] Comment on above: Performed By: #### C MP, MMA, B12, COPPER, SEPG, CBC, ENAID, ANA1 #### [place] [phone] #### B1VIT #### [facility] [address] [place] [phone] Platelet mean volume (Bld) [Entitic vol] 10.1 fL Normal 9.0-12.7 [facility] Comment on above: Performed By: #### C MP, MMA, B12, COPPER, SEPG, CBC, ENAID, ANA1 #### [place] [phone] #### B1VIT #### [facility] [address] [place] [phone] [phone] Platelets (Bld) [#/Vol] 352 10*3/uL Normal 150-400 [facility] Comment on above: Performed By: #### C MP, MMA, B12, COPPER, SEPG, CBC, ENAID, ANA1 #### [place] [phone] #### B1VIT #### [facility] [address] [place] [address] [phone] RBC (Bld) [#/Vol] 4.90 10*6/uL Normal 3.90-5.20 [facility] Comment on above: Performed By: #### C MP, MMA, B12, COPPER, SEPG, CBC, ENAID, ANA1 #### [facility] [address] [place] [phone] #### B1VIT #### [facility] [address] [place] [address] [phone] WBC (Bld) [#/Vol] 10.29 10*3/uL Normal 3.70-11.00 [facility] Comment on above: Performed By: #### C MP, MMA, B12, COPPER, SEPG, CBC, ENAID, ANA1 #### [facility] [address] [place] [phone] #### B1VIT #### [facility] [address] [place] [address] [phone] CNCOon 11-29-2018 CNCO Letter Text [facility] [address] [place] [id number] November 29, 2018 To whom it may concern, This letter confirms Prudencio Min was seen today in the [facility] November 29, 2018. Sincerely, Staff of [facility]. ELECTRONICALLY SIGNED. Normal [facility] CNOVon 11-29-2018 CNOV Office Visit (NEADMN ) -------- PRUDENCIO MIN ([id number]) 1995 F Date Time Provider Department 11/29/18 9:00 AM ANDREA VARGAS (ASHWIN) PIPER During your visit today, we recorded the following information about you: Pulse Respiration Blood pressure Weight 92/minute 18/minute 116/75 136.4 kg Height 1.575 m Andrea Vargas APRN.FAMILY INDEPENDENCE CASE MANAGER 11/29/2018 10:13 AM Signed Prudencio Min is a 23 year old female. Patient presents with: New Patient PMH: Appendectomy (2010), DANDC (March 2018), Anemic, Low Vitamin D, Anxiety Prudencio is a right handed female here today for evaluation. Symptoms began after a DANDC in March 2018. Petechiae was noted after surgery. IUD placed as well. She states that roughly 3 months ago, she had a syncopal event at work. 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 Had to go to the ER--had some lab work done and sent her home. She then had another syncopal event a week later and went to her family doctor who ordered lab work for her. She had a syncopal event while at the family doctor. Was taken to the ER and the ER doctor suggested POTS to her. She was referred to cardiology and neurologist. The kindergarten prep teacher did an EKG, echo and holter monitor and per the patient it was normal. I have no records today. The kindergarten prep teacher wanted to do a tilt table test. The kindergarten prep teacher from [facility] sent her to us at [facility]. EEG was done locally that was normal. States that before her syncopal event she will have dizziness. States that her thighs will be extremely warm and hot. States when that occurs, she has about 3 seconds before she has a syncopal event. She states that she cannot find a trigger for the syncopal event. She has had orthostatic vital signs done and had a drop in her blood pressure of over 20 points. She also had tachycardia--mother states in ER witnessed heart rate over 150 beats. She describes issue of memory and focus. Does get some spotty vision as well. Does have heart racing and palpitations. Does have nausea and constipation issues that is intermittent. She has had about 15 syncopal events. Denies tongue biting, loss of bladder control, shaking or tremors during the event. Quick postural changes will cause her much dizziness. Denies numbness/tingling. Denies shortness of breath. She was recommended to wear compression stockings. Has not passed out in about 2.5 weeks. Local neurologist instructed her not to drive. OAS reviewed data reviewed if done COMPASS 31 reviewed as 31 point autonomic review of systems questions THIS NOTE IS FOR AT FIRST FOR MY DOCUMENTATION TO PROVIDE CARE, HELP INSURANCE COMPANY AND COLLEAGUES TO HAVE NEUROLOGICAL CONTEXT OF MY , AND FOR MY PERSONAL RECORDING TO FACILITATE FUTURE CARE BY HAVING A WRITTEN DOCUMENT MEMORY OF OUR CONSULT TOGETHER . THANK YOU FOR UNDERSTANDING THIS OFFICE NOTE IS A PHYSICIAN BASED DOCUMENT FOR COMMUNICATION AND CARE. She is brought in today by her mother and fiance. Medications Reviewed citalopram (CELEXA) 20 mg tablet daily ibuprofen (MOTRIN) 800 mg tablet Take 800 mg by mouth as needed. ergocalciferol, vitamin D2, (VITAMIN D) 50,000 unit capsule Take 50,000 Units by mouth once each week. Allergies Reviewed Amoxicillin Rash Not Specified Allergy Past Updates... Penicillins Rash Low Allergy 06/30/2014 PAST MEDICAL HISTORY: There is no problem list on file for this patient. No past surgical history on file. Social History Marital status: Unknown Spouse name: Years of education: Number of children: Social History Main Topics Smoking status: Never Smoker Smokeless tobacco: Never Used family history is not on file. Autonomic check list: YES (Y) or NO (N) Dry mouth Y Dry eyes N Change in sweat Y (increased) Constipation Y Abdominal Bloating with shortly after eating N Fluctuation of diarrhea and constipation N Urination N Change in taste N Challenge swallowing foods N Skin changes of blue or redness to distal limbs N Fainting /near syncope/syncope Y Dizziness Y Light headiness Y Chest pain N Challenge in breathing N Tachycardia Y Temperature Regulation N Bright lights Y GENERAL:No weight loss, malaise or fevers., SEE HPI HEENT:Head Positive for headache daily NECK:Negative for lumps, goiter, pain and significant neck swelling RESPIRATORY: Negative for cough, wheezing or shortness of breath. CARDIOVASCULAR: palpitations and tachycardia GASTROINTESTINAL: Constipation GENITOURINARY: No history of dysuria, frequency or incontinence MUSKULOSKELETAL: back pain NEUROLOGIC:Negative for focal numbness or weakness, headaches and dizziness or syncope. SKIN:Negative for lesions, rash, and itching. PSYCHIATRIC: Positive for sleep disturbance: difficulty falling and staying asleep HEMATOLOGIC/LYMPHATIC/IM MUNOLOGIC:Negative for prolonged bleeding, bruising easily or swollen nodes. ENDOCRINE: Negative for cold or heat intolerance, polyuria, polydipsia and goiter. GLAUCOMA: No 11/29/18 0932 11/29/18 0933 11/29/18 0935 11/29/18 0936 BP: 138/67 140/74 116/70 116/75 BP Position: Supine Standing Standing Standing Pulse: 79 105 84 92 Resp: Weight: Height: During orthostatic vital signs, began to lean to left and looked very dizzy. Sat down and symptoms subsided with time General Appearance Patient appears well at the time of this appointment. Cardiovascular Examination: No carotid bruit noted Heart has regular rate and rhythm Pulses equal bilaterally Neurological Examination: Cognition: The patient is alert and oriented times three Lucid and organized in conversation Able to tell detailed medical hx Speech is Normal in fluency volume and clarity Content and Syntax: Normal Comprehension: Normal, able to follow several step commands Cranial Nerves: Pupils are equal and reactive to light. Pupils with dilation Extraocular movements are grossly intact Good saccades and pursuits No nystagmus Hearing intact Good upgaze Visual hutchinson are full to confrontation. Facial, motor and sensory exam is symmetric Equal v1,V2, V3 Tongue is in midline. No tongue fasciculation. Palate is upgoing bilaterally SCM and trapezius are full. Shoulder shrug intact ? Motor Exam: Acrocyanosis of feet ? Upper extremity motor exam is 5/5 in deltoid, 5/5 triceps 5/5biceps, 5/5 wrist extension, and 5/5 hand worm sorter. Finger extensor 5/5. Finger flexor 5/5. Pronation and Supination are full. Full interossei 5/5 ? Lower extremity is 5/5 in IP, 5/5 quadriceps, 5/5 hamstrings, 5/5 EHL, 5/5 TA and 5/5 gastrocnemius. Hip abductors and adductors are 5/5 Toe extensors and flexors are full bilaterally. Foot evertors and inversions are full bilaterally Tone and bulk is normal and preserved bilaterally of arms Tone and bulk is normal and preserved bilaterally of legs No pes cavus, hammer toes, champagne legs ? The patient is without significant pronator drift. ? Sensation: Decreased pinprick sensation bilateral feet that improves with proximity to core. Normal toe position and vibratory. Romberg's sign absent ? Reflexes: 2/4triceps, 2/4biceps, 2/4brachioradialis, 2/4knee jerk, 2/4ankle jerk and symmetric, toes are Down going (Negative Babinski). No clonus of ankles. ? Coordination: Finger-to- nose-finger and frvy-hk-myqz intact bilaterally. No ataxia of arms. No limb dysmetria of arms and legs. or trunk. BARBARA of pronation and supination, finger and hand tapping intact. Toe tapping intact. There is no asterixis of the hands. No rigidity, cog wheeling, no bradykinesia. No tremors No extrapyramidal findings ? Gait: Normal station and stride. Able to tandem. Able to heel and toe walk. Good arm swing and body turn rises from chair well IMPRESSION/PLAN: Disorder of Autonomic Nervous System: Prudencio presents today for evaluation of syncopal events. She has had them for last 3 months--states 15 total events. Does have dizziness, lightheadedness, palpitations (see HPI). Has had cardiac workup of EKG, ECHO, Holter monitor that is normal per patient. Had a neurology workup with EEG that was normal per patient. Asked that she send these results to me. Her orthostatic vital signs did reveal orthostatic hypotension today and she felt dizzy during this time. She had acrocyanosis of her feet. Mild sensory loss with decreased pinprick sensation. Due to the above information, I have ordered the followin. Neuro Cardio Autonomic Reflex Test without Tilt 2. Neuro QSART 3. Tilt Table Evaluation 3. Lab work for sensory loss 4. 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 I tried to reassure the patient and also address questions. I explained to the patient to call if any questions, to review results, and I want to see them return for neurological follow up as mychart as next steps of communication is agreed upon Patient verbalizes understanding and I have addressed concerns and questions at this visit Patient has my contacts, educational material provided, and my chart sign up. After visit summary discussed. I spent 60 minutes in the visit, with more than 50% of the total xpfd-ew-uvdg time of the visit in counseling / coordination of care. There is no problem list on file for this patient. Office Visit on 11/29/18 -NEURO CARDIO AUTONOMIC REFLEX W/WO TILT -NEURO QSART -METHYLMALONIC ACID -VITAMIN B12 BLOOD -COMP METABOLIC PANEL -CBC -VITAMIN B1/THIAMINE, WHOLE BLD -COPPER BLOOD -PROTEIN ELECTROPHORESIS W/INTERP -GANGLIONIC NACHR ANTIBODY -MIKE PANEL BLOOD SCRN -ANTI GINNY ID -TILT TABLE EVALUATION Andrea Vargas MSN, FISHING LINE WINDING MACHINE OPERATOR, LOGGING CREW SUPERVISOR-C 1. This office note has been dictated and may contain minor typographic errors that escaped review 2. The nursing staff and medical assistants are a major part of YOUR TREATMENT TEAM and will be handling your phone calls and inquiries, if any. Unless explicitly told otherwise at the time of your office visit, your study results and ensuing treatment plans will be discussed during your follow-up appointment. If you do not have a follow-up appointment and wish to discuss any issues directly with me, please feel free to obtain one. 3. It is my practice to not fill disability or any other insurance-related forms/documention. All of the office notes, study results, and other pertinent documentation generated as part of your evaluation will be available to you and to your Primary Care Physician (PCP). Use of this material to complete such forms will be at the discretion of your PCP/referring physician Andrea Vargas APRN.ASHWIN 11/29/2018 10:00 AM Addendum Please send me workup that you have completed already---EKG, ECHO, Holter monitor, MRI, EEG reports. Fax number is [phone] POTS Manual: Read the POTS manual online. This will help you understand your POTS diagnosis, work with your medical team, and includes detailed instructions and tips for improved daily living with POTS. [email or web address] Referring Provider: SELF [200] Allergies As of Date: 11/29/2018 Noted Allergy Reaction AMOXICILLIN 2 - Rash PENICILLINS 06/30/2014 2 - Rash Date Reviewed: 11/29/2018 Reviewed by: Andrea (Ashwin) Georgina - Fully Assessed Reason for Visit: New Patient [172] Primary Visit Diagnosis:Disorder of autonomic nervous system [G90.9] Other Visit Diagnoses:Orthostatic hypotension [I95.1] Disturbance of skin sensation [R20.9] Orthostatic lightheadedness [R42] Orthostatic dizziness [R42] Tachycardia [R00.0] Order(s):METHYLMALONIC ACID [SQMMA] Order #: [id number] FUTURE VITAMIN B12 BLOOD [SQB12] Order #: [id number] FUTURE COMP METABOLIC PANEL [SQCMP] Order #: [id number] FUTURE CBC [SQCBC] Order #: [id number] FUTURE VITAMIN B1/THIAMINE, WHOLE BLD [PTB7ALZ] Order #: [id number] FUTURE COPPER BLOOD [SQCOPPER] Order #: [id number] FUTURE PROTEIN ELECTROPHORESIS W/INTERP [SQSEPG] Order #: [id number] FUTURE GANGLIONIC NACHR ANTIBODY [SQGNGLAB] Order #: [id number] FUTURE MIKE PANEL BLOOD SCRN [SQANA1] Order #: [id number] FUTURE ANTI GINNY ID [SQENAID] Order #: [id number] FUTURE NEURO CARDIO AUTONOMIC REFLEX W/WO TILT [5422644] Order #: [id number] TILT TABLE EVALUATION [30281HZS] Order #: [id number]: 1 NEURO QSART [1202238] Order #: [id number] [] acetylcholine 10% solution - cchs compoundingDisp: Rfl: Prescriptions as of 11/29/2018 Sig: CITALOPRAM 20 MG TABLET daily IBUPROFEN 800 MG TABLET Take 800 mg by mouth as neede* ERGOCALCIFEROL (VITAMIN D2) 5* Take 50,000 Units by mouth on* Problem List As Of Date: 11/29/2018 (None) Other instructions from your clinician: Please send me workup that you have completed already---EKG, ECHO, Holter monitor, MRI, EEG reports. Fax number is [phone] POTS Manual: Read the POTS manual online. This will help you understand your POTS diagnosis, work with your medical team, and includes detailed instructions and tips for improved daily living with POTS. [email or web address] Prescriptions ordered this encounter Disp Refills Start End ACETYLCHOLINE 10% SOLUTION - [facility] CO* 11/29/2018 12/24/2018 Route: IRRIGATION Encounter Status:Closed by ANDREA VARAGS on 11/29/18 Normal [facility] Comp Metabolic Panelon 11-29 Albumin [Mass/Vol] 3.7 g/dL Low 3.9-4.9 [facility] Comment on above: Performed By: #### C MP, MMA, B12, COPPER, SEPG, CBC, ENAID, ANA1 #### [facility] [address] [phone] #### B1VIT #### [facility] [address] [place] [address] [phone] ALP [Catalytic activity/Vol] 90 U/L Normal 34-123 [facility] Comment on above: Performed By: #### C MP, MMA, B12, COPPER, SEPG, CBC, ENAID, ANA1 #### [place] [phone] #### B1VIT #### [facility] [address] [place] [address] [phone] ALT [Catalytic activity/Vol] 14 U/L Normal 7-38 [facility] Comment on above: Performed By: #### C MP, MMA, B12, COPPER, SEPG, CBC, ENAID, ANA1 #### [place] [phone] #### B1VIT #### [facility] [address] [place] [address] [phone] Anion gap [Moles/Vol] 15 mmol/L Normal 9-18 [facility] Comment on above: Performed By: #### C MP, MMA, B12, COPPER, SEPG, CBC, ENAID, ANA1 #### [place] [phone] #### B1VIT #### [facility] [address] [place] [address] [phone] AST [Catalytic activity/Vol] 13 U/L Normal 13-35 [facility] Comment on above: Performed By: #### C MP, MMA, B12, COPPER, SEPG, CBC, ENAID, ANA1 #### [place] [id number] [place] [phone] #### B1VIT #### [facility] [address] [place] [address] [phone] Bilirubin [Mass/Vol] 0.2 mg/dL Normal 0.2-1.3 [facility] Comment on above: Performed By: #### C MP, MMA, B12, COPPER, SEPG, CBC, ENAID, ANA1 #### [place] [phone] #### B1VIT #### [facility] [address] [place] [address] [phone] Calcium [Mass/Vol] 9.3 mg/dL Normal 8.5-10.2 [facility] Comment on above: Performed By: #### C MP, MMA, B12, COPPER, SEPG, CBC, ENAID, ANA1 #### [place] [phone] #### B1VIT #### [facility] [address] [place] [address] [phone] Chloride [Moles/Vol] 102 mmol/L Normal 97-105 [facility] Comment on above: Performed By: #### C MP, MMA, B12, COPPER, SEPG, CBC, ENAID, ANA1 #### [place] [phone] #### B1VIT #### [facility] [address] [place] [address] [phone] CO2 [Moles/Vol] 23 mmol/L Normal 22-30 [facility] Comment on above: Performed By: #### C MP, MMA, B12, COPPER, SEPG, CBC, ENAID, ANA1 #### [place] [phone] #### B1VIT #### [facility] [address] [place] [address] [phone] Creatinine [Mass/Vol] 0.58 mg/dL Normal 0.58-0.96 [facility] Comment on above: Performed By: #### C MP, MMA, B12, COPPER, SEPG, CBC, ENAID, ANA1 #### [facility] [address] [phone] #### B1VIT #### [facility] [address] [place] [address] [phone] eGFR- Amer. >60 Normal [facility] Comment on above: Performed By: #### C MP, MMA, B12, COPPER, SEPG, CBC, ENAID, ANA1 #### [place] [id number] [phone] #### B1VIT #### [facility] [address] [place] [address] [phone] GFR/1.73 sq M predicted among non-blacks MDRD (S/P/Bld) [Vol rate/Area] mL/min/{1.73_m2} Normal [facility] Comment on above: Result Comment: eGFR (Estimated GFR) Units of measure: mL/min/1.73 meters squared eGFR is derived from the reexpressed MDRD Study equation using the following parameters: serum creatinine, age, gender and race. The creatinine assay has been calibrated to be traceable to IDMS. An eGFR <60 mL/min/1.73m2 for >3 months is consistent with chronic kidney disease. Refer to KDOQI guidelines for clinical interpretation. In patients with unstable renal function, e.g. those with acute kidney injury, the eGFR may not accurately reflect actual GFR. Performed By: #### C MP, MMA, B12, COPPER, SEPG, CBC, ENAID, ANA1 #### [facility] [phone] #### B1VIT #### [facility] [address] [place] [address] [phone] Glucose [Mass/Vol] 78 mg/dL Normal 74-99 [facility] Comment on above: Result Comment: The [place] Diabetes Association (ADA) provides guidance for cutoff values for fasting glucose and random glucose. The ADA defines fasting as no caloric intake for at least 8 hours. Fasting plasma glucose results between 100 to 125 mg/dL indicate increased risk for diabetes (prediabetes). Fasting plasma glucose results greater than or equal to 126 mg/dL meet the criteria for diagnosis of diabetes. In the absence of unequivocal hyperglycemia, results should be confirmed by repeat testing. In a patient with classic symptoms of hyperglycemia or hyperglycemic crisis, random plasma glucose results greater than or equal to 200 mg/dL meet the criteria for diagnosis of diabetes. Reference: Standards of Medical Care in Diabetes 2016, [place] [employer] Association. Diabetes Care. 2016.39(Suppl 1). Performed By: #### C MP, MMA, B12, COPPER, SEPG, CBC, ENAID, ANA1 #### [place] [address] #### B1VIT #### [facility] [address] [place] [address] [phone] Potassium [Moles/Vol] 4.1 mmol/L Normal 3.7-5.1 [facility] Comment on above: Performed By: #### C MP, MMA, B12, COPPER, SEPG, CBC, ENAID, ANA1 #### [place] [address] #### B1VIT #### [facility] [address] [place] [address] [phone] Protein [Mass/Vol] 7.4 g/dL Normal 6.3-8.0 [facility] Comment on above: Performed By: #### C MP, MMA, B12, COPPER, SEPG, CBC, ENAID, ANA1 #### [place] [address] #### B1VIT #### [facility] [address] [place] [address] [phone] Sodium [Moles/Vol] 140 mmol/L Normal 136-144 [facility] Comment on above: Performed By: #### C MP, MMA, B12, COPPER, SEPG, CBC, ENAID, ANA1 #### [place] [phone] #### B1VIT #### [facility] [address] [place] [address] [phone] Urea nitrogen [Mass/Vol] 9 mg/dL Normal 7-21 [facility] Comment on above: Performed By: #### C MP, MMA, B12, COPPER, SEPG, CBC, ENAID, ANA1 #### [place] [address] #### B1VIT #### [facility] [address] [place] [address] [phone] Copperon 11-29-2018 Copper 117 ug/dL Normal 85-155 [facility] Comment on above: Result Comment: This test was developed and its performance characteristics determined by [facility]'s [facility] [place] ([facility]). It has not been cleared or approved by the FDA. [facility] is regulated under CLIA as qualified to perform high-complexity testing. This test is used for clinical purposes. It should not be regarded as investigational or for research. Performed By: #### C MP, MMA, B12, COPPER, SEPG, CBC, ENAID, ANA1 #### [place] [address] #### B1VIT #### [facility] [address] [place] [address] [phone] GINNY Antibody Panelon 019 Centromere <0.2 Normal <1.0 [facility] Comment on above: Result Comment: NEGA TIVE Negative: <1.0 AI Positive: >0.9 AI Performed By: #### C MP, MMA, B12, COPPER, SEPG, CBC, ENAID, ANA1 #### [place] [address] #### B1VIT #### [facility] [address] [place], [place] [id number] [phone] Chromatin Antibody <0.2 Normal <1.0 [facility] Comment on above: Result Comment: NEGA TIVE Negative: <1.0 AI Positive: >0.9 AI Performed By: #### C MP, MMA, B12, COPPER, SEPG, CBC, ENAID, ANA1 #### [place] [phone] #### B1VIT #### [facility] [address] [place] [address] [phone] OSWALDO 1 Antibody <0.2 Normal <1.0 [facility] Comment on above: Result Comment: NEGA TIVE Negative: <1.0 AI Positive: >0.9 AI Performed By: #### C MP, MMA, B12, COPPER, SEPG, CBC, ENAID, ANA1 #### [place] [phone] #### B1VIT #### [place] [address] [phone] Ribosomal LEAD DRIVER <0.2 Normal <1.0 [facility] Comment on above: Result Comment: NEGA TIVE Negative: <1.0 AI Positive: >0.9 AI Performed By: #### C MP, MMA, B12, COPPER, SEPG, CBC, ENAID, ANA1 #### [place] [phone] #### B1VIT #### [facility] [address] [place] [address] [phone] LEAD DRIVER Antibody <0.2 Normal <1.0 [facility] Comment on above: Result Comment: NEGA TIVE Negative: <1.0 AI Positive: >0.9 AI Performed By: #### C MP, MMA, B12, COPPER, SEPG, CBC, ENAID, ANA1 #### [place] [phone] #### B1VIT #### [facility] [address] [place] [address] [phone] Scleroderma IgG Ab <0.2 Normal <1.0 [facility] Comment on above: Result Comment: NEGA TIVE Negative: <1.0 AI Positive: >0.9 AI Performed By: #### C MP, MMA, B12, COPPER, SEPG, CBC, ENAID, ANA1 #### [place] [phone] #### B1VIT #### [facility] [address] [place] [address] [phone] Sm Antibody <0.2 Normal <1.0 [facility] Comment on above: Result Comment: NEGA TIVE Negative: <1.0 AI Positive: >0.9 AI Performed By: #### C MP, MMA, B12, COPPER, SEPG, CBC, ENAID, ANA1 #### [place] [phone] #### B1VIT #### [address] [address] [phone] SSA Antibody <0.2 Normal <1.0 [facility] Comment on above: Result Comment: NEGA TIVE Negative: <1.0 AI Positive: >0.9 AI Performed By: #### C MP, MMA, B12, COPPER, SEPG, CBC, ENAID, ANA1 #### [place] [phone] #### B1VIT #### [address] [address] [phone] SSB Antibody <0.2 Normal <1.0 [facility] Comment on above: Result Comment: NEGA TIVE Negative: <1.0 AI Positive: >0.9 AI Performed By: #### C MP, MMA, B12, COPPER, SEPG, CBC, ENAID, ANA1 #### [place] [phone] #### B1VIT #### [facility] [address] [address] [phone] Ganglionic nAChR Abon 2018 Ganglionic nAChR Ab (NOTE) Normal [facility] Comment on above: Result Comment: INTE RPRETATION NEGATIVE This test did not detect abnormal levels of anti-ganglionic neuronal acetylcholine receptor antibodies (alpha 3AChR). TECHNICAL RESULTS ------- Interpretive Result Table ------- INTERPRETIVE RESULT: Negative TEST: anti-alpha 3AChR TECHNICAL RESULT: No abnormal levels of antibodies detected ------- ------- COMMENTS This result does not exclude a diagnosis of an autoimmune etiology for the neurological symptoms associated with paraneoplastic disorder. Recommendations: Health care providers, please contact the [facility] Client Services Department at if you wish to speak with a clinical seo consultant regarding this test result. Other testing available: [facility] recommends additional testing, if not already performed. [facility] currently offers the following antibody tests: anti-Hu, anti-Yo, anti-Zic4, anti-CV2, anti-Ma1, anti-Ta, anti-Ri, anti-Recoverin, anti-VGCC, anti-VGKC, anti-Amphiphysin, anti-NMDA, anti-GAD65, anti-LGI1, and anti-CASPR2. Please contact the [facility] Department or visit [facility] for information regarding additional testing that may be appropriate based on this individual's clinical presentation. Background information: Paraneoplastic neurological syndromes or disorders (PNS or PND) are rare immune-mediated disorders resulting from the damage to the nervous system due to remote effects of a tumor (1, 2). PND of the central nervous system may occur in association with either onconeural antibodies directed against intracellular antigens, or antibodies targeted against neuronal surface antigens (1, 3). Clinical features of PND may include ataxia, limbic or brainstem encephalitis, sensory neuropathy, subacute cerebellar degeneration, dizziness, nystagmus, dysphagia, dysarthria, loss of muscle tone, loss of memory, vision problems, sleep disturbances, dementia, seizures, and/or sensory loss in the limbs (4). In approximately 60% of PND cases, neuropathic symptoms precede a tumor diagnosis (1). Some of the tumors related to PND include small cell lung cancer, ovarian teratoma and carcinoma, thymoma, lymphoma, breast cancer, and/or testicular cancer (2). PND may also include Lambert-Eaton myasthenic syndrome (LEMS), stiff person syndrome, encephalomyelitis, myasthenia gravis, neuromyotonia, and opsoclonus-myoclonus (4). However, these disorders can also occur in individuals without underlying cancer. Anti-alpha 3AChR antibodies have been strongly associated with acute and subacute (< 6 months) pandysautonomia, typically presenting with orthostatic hypotension, gastrointestinal dysmotility and other autonomic impairment (5, 6, 7). A positive G-AChR antibody test indicates that the autonomic deficits may be responsive to immunomodulatory therapy. Although not highly predictive of malignancy, Anti-alpha 3AChR antibodies may be found in patients with underlying small-cell lung cancer, thymoma, or other cancers. Since neurological symptoms precede the detection of an occult malignancy in two thirds of cases, patient monitoring is recommended, and a search for occult cancer should be considered. METHODS Detection of antibodies was performed by Radioimmunoassay (ERNA) methodology. Limitations of analysis: Reagent effectiveness may affect the signal intensity of the response. Although rare, false positive or false negative results may occur. All results should be interpreted in the context of clinical findings, relevant history, and other laboratory data. REFERENCES 1. VANDA Cuevas, et al. (2006) Semin Oncol 33: 270-98. (PMID: 80321288) 2. Victorinar, MAGDALENA, et al. (2011) Eur J Neurol 18: 19-e3. (PMID: 85742542) 3. Joanna Cabrera et al. (2012) J Neurol Neurosurg Psychiatry 83: 638-45. (PMID: 75284200) 4. MR Maicol, et al. (2010) Oncologist 15: 603-17. (PMID: 62872226) 5. Carmelo Pena et al. (2008) Lancet Neurol 7: 327-40. (PMID: 56870607) 6. Carmelo Frederick et al. (2007) Orphanet J Rare Dis 2: 22. (PMID: 74944893) 7. Daquan Stokes et al. (2000) N Engl J Med 343: 847-55. (PMID: 54902216) This test was developed and its analytical performance characteristics have been determined by [facility]. It has not been cleared or approved by the U.S. Food and Drug Administration. This assay has been validated pursuant to the CLIA regulations and is used for clinical purposes. Laboratory oversight provided by Vince Mcfarlane, Ph.D., [facility], CLIA license ma, [facility] (CLIA# [id number]) Testing performed at: [facility] [address] [place] [id number] Performed By: #### C MP, MMA, B12, COPPER, SEPG, CBC, ENAID, ANA1 ####[facility] [address] [place], [place] [phone]#### B1VIT ####[facility] [address] [place], [place] [phone] Methylmalonic Acidon 019 Methylmalonic Acid 165 nmol/L Normal 79-376 [facility] Comment on above: Result Comment: This test was developed and its performance characteristics determined by [facility]'s [facility] ([facility]). It has not been cleared or approved by the FDA. [facility] is regulated under CLIA as qualified to perform high-complexity testing. This test is used for clinical purposes. It should not be regarded as investigational or for research. Performed By: #### C MP, MMA, B12, COPPER, SEPG, CBC, ENAID, ANA1 ####[facility] [address] [place], [place] [phone]#### B1VIT ####[facility] [address] [place], [place] [phone] PROGRESSon 11-29-2018 PROGRESS HNO ID: [id number] Author: Andrea (Placement Assistant) Georgina Service: (none) Author Type: Nurse Practitioner Type: Progress Notes Filed: 11/29/2018 10:13 AM Note Text: Prudencio Min is a 23 year old female. Patient presents with: New Patient PMH: Appendectomy (2010), DANDC (March 2018), Anemic, Low Vitamin D, Anxiety Prudencio is a right handed female here today for evaluation. Symptoms began after a DANDC in March 2018. Petechiae was noted after surgery. IUD placed as well. She states that roughly 3 months ago, she had a syncopal event at work. 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 Had to go to the ER--had some lab work done and sent her home. She then had another syncopal event a week later and went to her family doctor who ordered lab work for her. She had a syncopal event while at the family doctor. Was taken to the ER and the ER doctor suggested POTS to her. She was referred to cardiology and neurologist. The kindergarten prep teacher did an EKG, echo and holter monitor and per the patient it was normal. I have no records today. The kindergarten prep teacher wanted to do a tilt table test. The kindergarten prep teacher from [facility] sent her to us at [facility]. EEG was done locally that was normal. States that before her syncopal event she will have dizziness. States that her thighs will be extremely warm and hot. States when that occurs, she has about 3 seconds before she has a syncopal event. She states that she cannot find a trigger for the syncopal event. She has had orthostatic vital signs done and had a drop in her blood pressure of over 20 points. She also had tachycardia--mother states in ER witnessed heart rate over 150 beats. She describes issue of memory and focus. Does get some spotty vision as well. Does have heart racing and palpitations. Does have nausea and constipation issues that is intermittent. She has had about 15 syncopal events. Denies tongue biting, loss of bladder control, shaking or tremors during the event. Quick postural changes will cause her much dizziness. Denies numbness/tingling. Denies shortness of breath. She was recommended to wear compression stockings. Has not passed out in about 2.5 weeks. Local neurologist instructed her not to drive. OARRS reviewed data reviewed if done COMPASS 31 reviewed as 31 point autonomic review of systems questions THIS NOTE IS FOR AT FIRST FOR MY DOCUMENTATION TO PROVIDE CARE, HELP INSURANCE COMPANY AND COLLEAGUES TO HAVE NEUROLOGICAL CONTEXT OF MY , AND FOR MY PERSONAL RECORDING TO FACILITATE FUTURE CARE BY HAVING A WRITTEN DOCUMENT MEMORY OF OUR CONSULT TOGETHER . THANK YOU FOR UNDERSTANDING THIS OFFICE NOTE IS A PHYSICIAN BASED DOCUMENT FOR COMMUNICATION AND CARE. She is brought in today by her mother and fisparkle. Medications Reviewed citalopram (CELEXA) 20 mg tablet daily ibuprofen (MOTRIN) 800 mg tablet Take 800 mg by mouth as needed. ergocalciferol, vitamin D2, (VITAMIN D) 50,000 unit capsule Take 50,000 Units by mouth once each week. Allergies Reviewed Amoxicillin Rash Not Specified Allergy Past Updates... Penicillins Rash Low Allergy 06/30/2014 PAST MEDICAL HISTORY: There is no problem list on file for this patient. No past surgical history on file. Social History Marital status: Unknown Spouse name: Years of education: Number of children: Social History Main Topics Smoking status: Never Smoker Smokeless tobacco: Never Used family history is not on file. Autonomic check list: YES (Y) or NO (N) Dry mouth Y Dry eyes N Change in sweat Y (increased) Constipation Y Abdominal Bloating with shortly after eating N Fluctuation of diarrhea and constipation N Urination N Change in taste N Challenge swallowing foods N Skin changes of blue or redness to distal limbs N Fainting /near syncope/syncope Y Dizziness Y Light headiness Y Chest pain N Challenge in breathing N Tachycardia Y Temperature Regulation N Bright lights Y GENERAL:No weight loss, malaise or fevers., SEE HPI HEENT:Head Positive for headache daily NECK:Negative for lumps, goiter, pain and significant neck swelling RESPIRATORY: Negative for cough, wheezing or shortness of breath. CARDIOVASCULAR: palpitations and tachycardia GASTROINTESTINAL: Constipation GENITOURINARY: No history of dysuria, frequency or incontinence MUSKULOSKELETAL: back pain NEUROLOGIC:Negative for focal numbness or weakness, headaches and dizziness or syncope. SKIN:Negative for lesions, rash, and itching. PSYCHIATRIC: Positive for sleep disturbance: difficulty falling and staying asleep HEMATOLOGIC/LYMPHATIC/IM MUNOLOGIC:Negative for prolonged bleeding, bruising easily or swollen nodes. ENDOCRINE: Negative for cold or heat intolerance, polyuria, polydipsia and goiter. GLAUCOMA: No 11/29/18 0932 11/29/18 0933 11/29/18 0935 11/29/18 0936 BP: 138/67 140/74 116/70 116/75 BP Position: Supine Standing Standing Standing Pulse: 79 105 84 92 Resp: Weight: Height: During orthostatic vital signs, began to lean to left and looked very dizzy. Sat down and symptoms subsided with time General Appearance Patient appears well at the time of this appointment. Cardiovascular Examination: No carotid bruit noted Heart has regular rate and rhythm Pulses equal bilaterally Neurological Examination: Cognition: The patient is alert and oriented times three Lucid and organized in conversation Able to tell detailed medical hx Speech is Normal in fluency volume and clarity Content and Syntax: Normal Comprehension: Normal, able to follow several step commands Cranial Nerves: Pupils are equal and reactive to light. Pupils with dilation Extraocular movements are grossly intact Good saccades and pursuits No nystagmus Hearing intact Good upgaze Visual hutchinson are full to confrontation. Facial, motor and sensory exam is symmetric Equal v1,V2, V3 Tongue is in midline. No tongue fasciculation. Palate is upgoing bilaterally SCM and trapezius are full. Shoulder shrug intact ? Motor Exam: Acrocyanosis of feet ? Upper extremity motor exam is 5/5 in deltoid, 5/5 triceps 5/5biceps, 5/5 wrist extension, and 5/5 hand worm sorter. Finger extensor 5/5. Finger flexor 5/5. Pronation and Supination are full. Full interossei 5/5 ? Lower extremity is 5/5 in IP, 5/5 quadriceps, 5/5 hamstrings, 5/5 EHL, 5/5 TA and 5/5 gastrocnemius. Hip abductors and adductors are 5/5 Toe extensors and flexors are full bilaterally. Foot evertors and inversions are full bilaterally Tone and bulk is normal and preserved bilaterally of arms Tone and bulk is normal and preserved bilaterally of legs No pes cavus, hammer toes, champagne legs ? The patient is without significant pronator drift. ? Sensation: Decreased pinprick sensation bilateral feet that improves with proximity to core. Normal toe position and vibratory. Romberg's sign absent ? Reflexes: 2/4triceps, 2/4biceps, 2/4brachioradialis, 2/4knee jerk, 2/4ankle jerk and symmetric, toes are Down going (Negative Babinski). No clonus of ankles. ? Coordination: Finger-to- nose-finger and knal-ve-nacn intact bilaterally. No ataxia of arms. No limb dysmetria of arms and legs. or trunk. BARBARA of pronation and supination, finger and hand tapping intact. Toe tapping intact. There is no asterixis of the hands. No rigidity, cog wheeling, no bradykinesia. No tremors No extrapyramidal findings ? Gait: Normal station and stride. Able to tandem. Able to heel and toe walk. Good arm swing and body turn rises from chair well IMPRESSION/PLAN: Disorder of Autonomic Nervous System: Prudencio presents today for evaluation of syncopal events. She has had them for last 3 months--states 15 total events. Does have dizziness, lightheadedness, palpitations (see HPI). Has had cardiac workup of EKG, ECHO, Holter monitor that is normal per patient. Had a neurology workup with EEG that was normal per patient. Asked that she send these results to me. Her orthostatic vital signs did reveal orthostatic hypotension today and she felt dizzy during this time. She had acrocyanosis of her feet. Mild sensory loss with decreased pinprick sensation. Due to the above information, I have ordered the followin. Neuro Cardio Autonomic Reflex Test without Tilt 2. Neuro QSART 3. Tilt Table Evaluation 3. Lab work for sensory loss 4. 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 I tried to reassure the patient and also address questions. I explained to the patient to call if any questions, to review results, and I want to see them return for neurological follow up as mycvicentet as next steps of communication is agreed upon Patient verbalizes understanding and I have addressed concerns and questions at this visit Patient has my contacts, educational material provided, and my chart sign up. After visit summary discussed. I spent 60 minutes in the visit, with more than 50% of the total qicq-bq-gwhe time of the visit in counseling / coordination of care. There is no problem list on file for this patient. Office Visit on 11/29/18 -NEURO CARDIO AUTONOMIC REFLEX W/WO TILT -NEURO QSART -METHYLMALONIC ACID -VITAMIN B12 BLOOD -COMP METABOLIC PANEL -CBC -VITAMIN B1/THIAMINE, WHOLE BLD -COPPER BLOOD -PROTEIN ELECTROPHORESIS W/INTERP -GANGLIONIC NACHR ANTIBODY -MIKE PANEL BLOOD SCRN -ANTI GINNY ID -TILT TABLE EVALUATION Andrea Vargas MSN, FISHING LINE WINDING MACHINE OPERATOR, LOGGING CREW SUPERVISOR-C 1. This office note has been dictated and may contain minor typographic errors that escaped review 2. The nursing staff and medical assistants are a major part of YOUR TREATMENT TEAM and will be handling your phone calls and inquiries, if any. Unless explicitly told otherwise at the time of your office visit, your study results and ensuing treatment plans will be discussed during your follow-up appointment. If you do not have a follow-up appointment and wish to discuss any issues directly with me, please feel free to obtain one. 3. It is my practice to not fill disability or any other insurance-related forms/documention. All of the office notes, study results, and other pertinent documentation generated as part of your evaluation will be available to you and to your Primary Care Physician (PCP). Use of this material to complete such forms will be at the discretion of your PCP/referring physician Normal [facility] Protein Electrophor.on 11-29 Albumin [Mass/Vol] 3.26 g/dL Low 3.37-4.23 [facility] Comment on above: Performed By: #### C MP, MMA, B12, COPPER, SEPG, CBC, ENAID, ANA1 ####[facility] [address] [place], [place] [phone]#### B1VIT ####[facility] [address] [place], [place] [phone] Alpha 1 Globulin 0.27 gm/dL Normal 0.18-0.31 [facility] Comment on above: Performed By: #### C MP, MMA, B12, COPPER, SEPG, CBC, ENAID, ANA1 ####[place] [phone]#### B1VIT ####[address] [phone] Alpha 2 Globulin 0.81 gm/dL Normal 0.52-0.97 [facility] Comment on above: Performed By: #### C MP, MMA, B12, COPPER, SEPG, CBC, ENAID, ANA1 ####[place] [phone]#### B1VIT ####[address] [phone] Beta Globulin 1.16 gm/dL Normal 0.84-1.36 [facility] Comment on above: Performed By: #### C MP, MMA, B12, COPPER, SEPG, CBC, ENAID, ANA1 ####[place] [phone]#### B1VIT ####[address] [phone] Gamma Globulin 1.50 gm/dL High 0.70-1.44 [facility] Comment on above: Performed By: #### C MP, MMA, B12, COPPER, SEPG, CBC, ENAID, ANA1 ####[place] [phone]#### B1VIT ####[address] [phone] Interpretation SEE COMMENT Normal [facility] Comment on above: Result Comment: No d efinitive M protein is identified on protein electrophoresis. Performed By: #### C MP, MMA, B12, COPPER, SEPG, CBC, ENAID, ANA1 ####[address] [phone]#### B1VIT ####[facility] [address] [place], [place] [phone] M Tigre Concentratn 0.00 gm/dL Normal 0.00 [facility] Comment on above: Performed By: #### C MP, MMA, B12, COPPER, SEPG, CBC, ENAID, ANA1 ####[address] [phone]#### B1VIT ####[address] [phone] Protein [Mass/Vol] 7.0 g/dL Normal 6.0-8.4 [facility] Comment on above: Performed By: #### C MP, MMA, B12, COPPER, SEPG, CBC, ENAID, ANA1 ####[address] [phone]#### B1VIT ####[address] [phone] Protein [Mass/Vol] N/A Normal [facility] Comment on above: Performed By: #### C MP, MMA, B12, COPPER, SEPG, CBC, ENAID, ANA1 ####[address] [phone]#### B1VIT ####[facility] [place], [place] [phone] SPE Staff Review Reviewed by Carrington Akers MD ([id number]) [facility] Comment on above: Performed By: #### C MP, MMA, B12, COPPER, SEPG, CBC, ENAID, ANA1 ####[address] [phone]#### B1VIT ####[facility] [address] [place], [place] [phone] Vitamin B1,Whole Bldon 11-29 Vitamin B1 Whole Bld 101 nmol/L Normal 70-180 [facility] Comment on above: Result Comment: (NOT E) INTERPRETIVE INFORMATION: Vitamin B1, Whole Blood This assay measures the concentration of thiamine diphosphate (TDP), the primary active form of vitamin B1. Approximately 90 percent of vitamin B1 present in whole blood is TDP. Thiamine and thiamine monophosphate, which comprise the remaining 10 percent, are not measured. Test developed and characteristics determined by [facility]. See Compliance Statement B: [employer]/CS Performed by [facility], [address] [place] [address] www.[employer], Nam Andres MD, Lab. Director Performed By: #### C MP, MMA, B12, COPPER, SEPG, CBC, ENAID, ANA1 ####[facility] [place], [place] [phone]#### B1VIT ####[facility] [address] [place], [place] [phone] Vitamin B12on 11-29-2018 Cobalamin (Vitamin B12) [Mass/Vol] 419 pg/mL Normal 232-1245 [facility] Comment on above: Performed By: #### C MP, MMA, B12, COPPER, SEPG, CBC, ENAID, ANA1 #### [facility] [employer] [address] [place], [place] [address] #### B1VIT #### [facility] [address] [place] [address] [phone] Hemoglobin and Hematocriton 03-07-2018 Hematocrit (HCT) 38.5 % Normal 37.0-47.0 [facility] Hemoglobin mass conc (Bld) 12.7 g/dL Normal 12.0-16.0 [facility] Partial Thromboplastin Timeo n 03-07-2018 aPTT 28.6 s Normal 21.6-35.4 [facility] Comment on above: Result Comment: Hepa rin Therapeutic Range: 38.8 - 54.6 seconds. Prothrombin Timeon 8 INR Coag RelTime (PPP) 1.0 {INR} Normal [facility] Comment on above: Result Comment: Reji mmended INR therapeutic ranges for oral anticoagulanttherapyProphylaxis/treatment of: INR Venous Thrombosis, Pulmonary Embolism 2.0-3Prevention of Systemic Embolism from: Atrial Fibrillation 2.0-3.0 Myocardial Infarction 2.0-3.0 Mechanical Prosthetics Heart Valves 2.5-3.5 Recurrent Systemic Embolism 2.5-3.5Guidelines for patients with coagulopathy, e.g. liver disease:Use the Protime resulted in seconds. Mild 12.9-17.0 sec Moderate 17.1-22.6 sec Severe G.T. 22.6 sec Prothrombin time (PT) Coag time (PPP) 10.3 s Normal 9.6-12.3 [facility] Progesterone Quanton 018 Progesterone, hplc-ms/ms <0.10 Normal [facility] Comment on above: Result Comment: Fema les, 17 years and older Cycle Days Reference Interval (ng/mL) 1 - 6 ............... Less than or equal to 0.17 7 - 12 .............. Less than or equal to 1.35 13 - 15 .............. Less than or equal to 15.63 16 - 28 .............. Less than or equal to 25.55 Post-Menopausal ...... Less than or equal to 0.10Pregnancy Reference Intervals (ng/mL): 1st Trimester ...... 6.25 - 45.46 2nd Trimester ..... 15.40 - 52.10 3rd Trimester ..... 24.99 - 99.92REFERENCE INTERVAL: Progesterone Quantitative by HPLC-MS/MS, Serum or PlasmaAccess complete set of age- and/or gender-specific reference intervalsforthis test in the [facility] Test Directory ([employer]).Test developed and characteristics determined by [facility]. SeeCompliance Statement B: [employer]/CSPerformed by [facility],[address] [place] [address] zsr.[employer], Nam Andres MD - Lab. Director 17-Hydroxyprogesterone Qnt b y MS/MS, Seron 12-03-2017 17-Hydroxyprogesterone Quant, MS/MS, Ser 18.30 ng/dL Normal <=206.00 [facility] Comment on above: Result Comment: INTE RPRETIVE INFORMATION for 17-Hydroxyprogesterone in females:Follicular 15 to 70 ng/dLLuteal 35 to 290 ng/dLREFERENCE INTERVAL: 17-Hydroxyprogesterone Qnt, HPLC-MS/MSAccess complete set of age- and/or gender-specific reference intervalsforthis test in the [facility] Test Directory ([employer]).Test developed and characteristics determined by [facility]. SeeCompliance Statement B: [employer]/CSPerformed by [facility],[address] [place] [address] can.[employer], Nam Andres MD - Lab. Director Testosterone Free and Total by LC-MS/MSon 12-03-2017 Sex Hormone Binding Globulin 19 nmol/L Low 30-135 [facility] Comment on above: Result Comment: REFE RENCE INTERVAL: Sex Hormone Binding GlobulinAccess complete set of age- and/or gender-specific reference intervalsforthis test in the [facility] Test Directory ([employer]). Testosterone, Free LC-MS/MS 6.2 pg/mL Normal 0.8-7.4 [facility] Comment on above: Result Comment: To c onvert to pmol/L, multiply pg/mL by 3.47The concentration of Free Testosterone is derived from a mathematicalexpression based on the constant for the binding of testosterone to sexhormone binding globulin.Testosterone, Free LC-MS/MS Reference Interval for Females 18 years andolder Postmenopausal: 0.6 - 3.8 pg/mLREFERENCE INTERVAL: Testosterone, Free LC-MS/MSAccess complete set of age- and/or gender-specific reference intervalsforthis test in the [facility] Test Directory ([employer]).Test developed and characteristics determined by [facility]. SeeCompliance Statement B: [employer]/CSPerformed by [facility],[address] [place] [address] ggc.[employer], Nam Andres MD - Lab. Director Testosterone, LC-MS/MS 29 ng/dL Normal 9-55 [facility] Comment on above: Result Comment: Tota l Testosterone, Females 18 years and older Premenopausal 9-55 ng/dL Postmenopausal 5-32 ng/dLREFERENCE INTERVAL: Testosterone, LC-MS/MSAccess complete set of age- and/or gender-specific reference intervalsforthis test in the [facility] Test [facility] ([employer]).Test developed and characteristics determined by [facility]. SeeCompliance Statement B: [employer]/ DHEA Sulfate, Serumon 2017 DHEAS 197 ug/dL Normal 65-380 [facility] Comment on above: Result Comment: REFE RENCE INTERVAL: DHEASAccess complete set of age- and/or gender-specific reference intervalsforthis test in the [facility] Test Directory ([employer]).Performed by [facility],[address] [place] [address] yaj.[employer], Nam Andres MD - Lab. Director CBC With Platelet and Differ entialon 11-28-2017 Basophils Auto #/vol (Bld) 0.1 10*3/uL Normal 0.0-0.2 [facility] Basophils/100 WBC Auto (Bld) 0.9 % Normal [facility] Eosinophils 0.3 10*3/uL Normal 0.0-0.7 [facility] Eosinophils/100 leukocytes 2.2 % Normal [facility] Erythrocyte distribution width Auto Ratio (RBC) 14.2 % Normal 11.5-14.5 [facility] Erythrocytes (RBC) 4.87 10*6/uL Normal 4.20-5.40 [facility] Hematocrit (HCT) 41.3 % Normal 37.0-47.0 [facility] Hemoglobin mass conc (Bld) 13.3 g/dL Normal 12.0-16.0 [facility] Lymphocytes 2.9 10*3/uL Normal 1.0-4.8 [facility] Lymphocytes/100 leukocytes 21.9 % Normal [facility] MCH 27.2 pg Normal 27.0-31.3 [facility] MCHC mass conc (RBC) 32.1 % Low 33.0-37.0 [facility] MCV 84.7 fL Normal 82.0-100.0 [facility] Monocytes 0.5 10*3/uL Normal 0.2-0.8 [facility] Monocytes/100 leukocytes 4.1 % Normal [facility] Neutrophils 9.4 10*3/uL Critically high 1.4-6.5 [facility] Neutrophils/100 leukocytes 70.9 % Normal [facility] Platelets 319 10*3/uL Normal 130-400 [facility] WBC (Leukocytes) 13.3 10*3/uL Critically high 4.8-10.8 [facility] FSHon 11-28-2017 FSH 5.0 mIU/mL [facility] Comment on above: Result Comment: Expe cted ValuesNormally Menstruating FemalesFollicular Phase: 2.5 - 12.5 mIU/mLMid-Cycle Peak : 4.7 - 21.5 mIU/mLLuteal Phase: 1.7 - 7.7 mIU/mL Females: Less than 0.3mIU/mLPost Menopausal Females: 25.8 - 134.8 mIU/mLMales(13 - 70 years): 1.5 - 12.4 mIU/mL HCG Quanton 11-28-2017 HCG Quant <0.1 [facility] Comment on above: Result Comment: Gest ational Age Expected HCG values (mIU/ml) 3 weeks 5-72 4 weeks 10-708 5 weeks 217-8,245 6 weeks 152-32,177 8 weeks 31,366-149,094 12 weeks 27,107-201,615 16 weeks 8,904-55,332 18 weeks 9,649-55,271 Luteinizing Hormoneon 2017 Luteinizing Hormone 9.5 mIU/mL Normal [facility] Comment on above: Result Comment: Expe cted Values:Females: Follicular Phase: 2.4 - 12.6 mIU/mL Mid- Cycle Peak: 14.0 - 95.6 mIU/mL Luteal Phase: 1.0 - 11.4 mIU/mL Post Menopausal: 7.7 - 58.5 mIU/mLMales: 1.7 - 8.6 mIU/mL Prolactinon 11-28-2017 Prolactin 16.8 ng/mL Normal [facility] Comment on above: Result Comment: Defa ult Normal RangesFemale MaleNon: 4.8-23.3 4.0-15.2 TSH w/out Reflexon 8 Thyroid stimulating hormone (TSH) 2.390 uIU/mL Normal 0.270-4.20 [facility] Thyroxine Freeon 11-28-2017 Thyroxine Free 1.28 ng/dL Normal 0.93-1.70 [facility] Vital Signs Date Time Vital Sign Value Performing Clinician Facility 06-11-2024 09:44-0400 Body height 154.94 cm AUTUMN Cruz Work Phone: [facility] 06-11-2024 09:44-0400 Body mass index (BMI) [Ratio] 52.7 kg/m2 AUTUMN Cruz Work Phone: [facility] 06-11-2024 09:44-0400 Body temperature 98.4 [degF] AUTUMN Cruz Work Phone: [facility] 06-11-2024 09:44-0400 Body weight 126.55 kg AUTUMN Cruz Work Phone: [facility] 06-11-2024 09:44-0400 Diastolic blood pressure 71 mm[Hg] AUTUMN Cruz Work Phone: [facility] 06-11-2024 09:44-0400 Heart rate 79 /min AUTUMN Cruz Work Phone: [facility] 06-11-2024 09:44-0400 SaO2% (BldA) [Mass fraction] 95 % AUTUMN Cruz Work Phone: [facility] 06-11-2024 09:44-0400 Systolic blood pressure 101 mm[Hg] DNP Elizabeth Cruz Work Phone: [facility] 01-03-2024 11:32-0400 Body height 154.94 cm DNP Elizabeth Cruz Work Phone: [facility] 01-03-2024 11:32-0400 Body mass index (BMI) [Ratio] 53.5 kg/m2 DNP Elizabeth Cruz Work Phone: [facility] 01-03-2024 11:32-0400 Body weight 128.48 kg DNP Elizabeth Cruz Work Phone: [facility] 01-03-2024 11:32-0400 Diastolic blood pressure 78 mm[Hg] DNP Elizabeth Cruz Work Phone: [facility] 01-03-2024 11:32-0400 Heart rate 94 /min DNP Elizabeth Cruz Work Phone: [facility] 01-03-2024 11:32-0400 SaO2% (BldA) [Mass fraction] 98 % DNP Elizabeth Cruz Work Phone: [facility] 01-03-2024 11:32-0400 Systolic blood pressure 118 mm[Hg] DNP Elizabeth Stewartle Work Phone: [facility] 12-19-2023 12:49-0400 Blood Pressure Location ALEXEI SON [facility] 12-19-2023 12:49-0400 Body temperature 100.22 [degF] ALEXEI SON [facility] 12-19-2023 12:49-0400 Diastolic blood pressure 76 mm[Hg] ALEXEI SON [facility] 12-19-2023 12:49-0400 Heart rate 120 /min ALEXEI SON [facility] 12-19-2023 12:49-0400 SaO2% (BldA) [Mass fraction] 97 % ALEXEI HUY [facility] 12-19-2023 12:49-0400 Systolic blood pressure 122 mm[Hg] ADAMS HUY [facility] 12-04-2023 14:06-0500 Body height 154.94 cm DNP Elizabeth Kaple Work Phone: [facility] 12-04-2023 14:06-0500 Body mass index (BMI) [Ratio] 53.9 kg/m2 DNP Elizabeth Kaple Work Phone: [facility] 12-04-2023 14:06-0500 Body weight 129.47 kg DNP Elizabeth Kaple Work Phone: [facility] 12-04-2023 14:06-0500 Diastolic blood pressure 70 mm[Hg] DNP Elizabeth Kaple Work Phone: [facility] 12-04-2023 14:06-0500 Heart rate 95 /min DNP Elizabeth Kaple Work Phone: [facility] 12-04-2023 14:06-0500 Respiratory rate 18 /min DNP Elizabeth Kaple Work Phone: [facility] 12-04-2023 14:06-0500 SaO2% (BldA) [Mass fraction] 97 % DNP Elizabeth Kaple Work Phone: [facility] 12-04-2023 14:06-0500 Systolic blood pressure 110 mm[Hg] DNP Elizabeth Kaple Work Phone: [facility] 05-18-2023 20:45-0400 Diastolic blood pressure 79 mm[Hg] Mirza Walton CNP Work Phone: [employer] 05-18-2023 20:45-0400 Heart rate 88 /min Mirza Walton CNP Work Phone: [facility] [employer] 05-18-2023 20:45-0400 Respiratory rate 21 /min Mirza Walton CNP Work Phone: [facility] [employer] 05-18-2023 20:45-0400 SaO2% (BldA) [Mass fraction] 99 % Mirza Walton CNP Work Phone: [employer] 05-18-2023 20:45-0400 Systolic blood pressure 135 mm[Hg] Mirza Walton CNP Work Phone: [facility] [employer] 05-18-2023 19:50-0400 Body height 154.9 cm Mirza Walton CNP Work Phone: [facility] [employer] 05-18-2023 19:50-0400 Body mass index (BMI) [Ratio] 47.61 kg/m2 Mirza Walton CNP Work Phone: [facility] [employer] 05-18-2023 19:50-0400 Body temperature 98.2 [degF] Mirza Walton CNP Work Phone: [employer] 05-18-2023 19:50-0400 Body weight 114.31 kg Mirza Walton CNP Work Phone: [facility] [employer] 04-14-2023 13:36-0400 Body temperature 97.7 [degF] Barak Greer [facility] 04-14-2023 13:36-0400 Diastolic blood pressure 82 mm[Hg] Barak Zoey [facility] 04-14-2023 13:36-0400 Heart rate 79 /min Barak Greer [facility] 04-14-2023 13:36-0400 Respiratory rate 18 /min Barak Greer [facility] 04-14-2023 13:36-0400 SaO2% (BldA) [Mass fraction] 98 % Barak Greer [facility] 04-14-2023 13:36-0400 Systolic blood pressure 119 mm[Hg] Barak Greer [facility] 05-06-2022 02:27-0400 Diastolic blood pressure 74 mm[Hg] Kaylinn Dokken [facility] 05-06-2022 02:27-0400 Heart rate 85 /min Kaylinn Dokken [facility] 05-06-2022 02:27-0400 Mean blood pressure 93 mm[Hg] Kaylinn Dokken [facility] 05-06-2022 02:27-0400 Systolic blood pressure 130 mm[Hg] Kaylinn Dokken [facility] 05-06-2022 00:59-0400 Body temperature 97.88 [degF] Kaylinn Dokken [facility] 05-06-2022 00:59-0400 Diastolic blood pressure 83 mm[Hg] Kaylinn Dokken [facility] 05-06-2022 00:59-0400 Heart rate 103 /min Kaylinn Dokken [facility] 05-06-2022 00:59-0400 Respiratory rate 20 /min Kaylinn Dokken [facility] 05-06-2022 00:59-0400 SaO2% (BldA) [Mass fraction] 98 % Kaylinn Dokken [facility] 05-06-2022 00:59-0400 Systolic blood pressure 120 mm[Hg] Tiffanie Dukes [facility] Encounters Encounter Date Encounter Type Care Provider Facility Start: 06-11-2024 End: 06-11-2024 ambulatory DNP Elizabeth Cruz Work Phone: [facility] Work Phone: Start: 06-11-2024 End: 06-11-2024 Patient encounter procedure DNP Elizabeth Cruz Work Phone: [facility] [place] Work Phone: Start: 02-26-2024 End: 02-26-2024 ambulatory MARK NARCISA Not Available Start: 01-03-2024 End: 01-03-2024 ambulatory DNP Elizabeth Cruz Work Phone: [facility] Work Phone: Start: 01-03-2024 End: 01-03-2024 Patient encounter procedure DNP Elizabeth Cruz Work Phone: [facility] [place] Work Phone: Start: 12-28-2023 End: 12-28-2023 Patient encounter procedure DNP Elizabeth Cruz Work Phone: [facility] Start: 12-28-2023 End: 12-28-2023 ambulatory DNP Elizabeth Cruz Work Phone: [facility] Work Phone: Start: 12-19-2023 End: 12-20-2023 ambulatory [facility] Facility:[facility] Start: 12-19-2023 End: 12-19-2023 Lab Drop off [facility] Start: 12-19-2023 End: 12-20-2023 ambulatory ALEXEI JAYZ Facility:[facility] Start: 12-19-2023 End: 12-19-2023 Patient encounter procedure ALEXEI SON [facility] Start: 12-04-2023 End: 12-04-2023 Patient encounter procedure DNP Elizabeth Cruz Work Phone: [facility] [place] Work Phone: Start: 05-28-2023 End: 05-28-2023 ambulatory ELSA SCOTT [facility] Start: 05-24-2023 End: 05-24-2023 Subsequent hospital visit by physician Phone Pre Admission Testing [facility] Pre-Admission Testing Comment on above: No Show Start: 05-18-2023 End: 05-19-2023 Emergency department patient visit [facility]ZA [facility] Start: 05-18-2023 End: 05-18-2023 Emergency department patient visit Mirza [facility] 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 ED Comment on above: Calculus of gallblad jonna without cholecystitis without obstruction (Primary Dx) Start: 04-14-2023 End: 04-14-2023 Emergency department patient visit Barak Greer Facility:[facility] Start: 04-14-2023 End: 04-14-2023 Emergency department patient visit Barak Greer [facility] Start: 04-14-2023 End: 04-15-2023 ambulatory Jadon SANTANA Facility:[facility] Start: 02-16-2023 End: 02-17-2023 ambulatory SHANIQUE LOOMIS Facility:[facility] Start: 11-13-2022 End: 11-13-[address] JADON MCKINNON . Facility:[facility] Start: 11-09-2022 End: 11-09-[address] MARK ROSALES . Facility:[facility] Start: 11-08-2022 Encounter for preprocedural laboratory examination DR MARK ROSALES . [facility] Start: 11-07-2022 End: 11-08-[address] MARK ROSALES . Facility:[facility] Start: 11-07-2022 End: 11-08-2022 Encounter for preprocedural laboratory examination DR MARK ROSALES . Facility:[facility] Start: 11-01-2022 Encounter for other preprocedural examination DR MARK ROSALES . [facility] Start: 10-30-2022 End: 10-31-2022 ambulatory LEA TRIANA Facility:[facility] Start: 10-30-2022 End: 10-31-2022 Encounter for other preprocedural examination LEA TRIANA Facility:[facility] Start: 09-22-2022 End: 09-22-[address] MARK ROSALES . Facility:[facility] Start: 09-18-2022 End: 09-20-2022 Evaluation and management of inpatient DR MARK ROSALES . Facility:[facility] Start: 09-15-2022 End: 09-16-[address] MARK ROSALES . Facility:[facility] Start: 08-29-2022 End: 08-29-[address] MARK ROSALES . Facility:[facility] Start: 08-21-2022 End: 08-21-[address] BAILEE SKINNER . Facility:[facility] Start: 08-07-2022 End: 08-08-[address] MARK ROSALES . Facility:[facility] Start: 07-06-2022 End: 07-07-[address] MARK ROSALES . Facility:[facility] Start: 06-14-2022 End: 06-15-[address] MARK ROSALES . Facility:[facility] Start: 06-10-2022 End: 06-11-[address] MARK ROSALES . Facility:[facility] Start: 05-16-2022 End: 05-17-[address] MARK ROSALES . Facility:[facility] Start: 05-06-2022 End: 05-06-2022 Emergency department patient visit Tiffanie Dukes [facility] Start: 04-01-2022 End: 04-01-2022 ambulatory NONE LISTED REQUEST Facility: Start: 03-08-2022 End: 03-09-[address] MARK ROSALES . Facility:[facility] Start: 02-17-2022 End: 02-18-[address] MARK ROSALES . Facility:[facility] Start: 01-25-2022 End: 01-26-[address] MARK ROSALES . Facility: Start: 03-14-2018 End: 04-13-2018 Preoperative state Mirza Walton CNP Work Phone: [facility] Procedures Date Procedure Procedure Detail Performing Clinician Start: 06-11-2024 Radiologic examination of knee DNP Elizabeth Cruz Work Phone: Start: 05-18-2023 Us abdominal real time w/image limited Zainab Rios PA-C Work Phone: Start: 05-18-2023 Ecg routine ecg w/least 12 lds w/i&r Zainab Rios PA-C Work Phone: Start: 05-18-2023 End: 05-18-2023 Comprehensive metabolic panel Zainab Rios PA-C Work Phone: Start: 09-18-2022 Extraction of Products of Conception, Low Cervical, Open Approach DR MARK ROSALES . Start: 07-22-2021 section Tiffanie Dukes Start: 12-10-2019 Flexible fiberoptic sigmoidoscopy Tiffanie Dukes Start: 01-24-2018 Microscopic observation [Identifier] in Cervix by Cyto stain Mirza Walton CNP Work Phone: Start: 08-16-2017 Excision pilonidal cyst/sinus simple Tiffanie Dukes Start: 08-14-2011 Appendectomy Tiffanie Dukes Appendectomy Appendectomy( Confirmed ) Tiffanie Dukes Cholecystectomy ALEXEI OR TIZ Plan of Treatment Date Care Activity Detail Author Start: 07-25-2031 DTaP/Tdap/Td vaccine (2 - Tdap) DTaP/Tdap/Td vaccine (2 - Tdap) [facility] Start: 06-11-2024 Radiologic examinati on of knee XR knee LT 4V* [facility] Start: 06-11-2024 XR Knee - left 4 Views [facility] Start: 12-04-2023 Patient referral [facility] Work Phone: Start: 05-08-2023 Influenza vaccination Flu vaccine (# 1) [facility] Start: 01-24-2021 Screening for malign ant neoplasm of cervix Pap smear [facility] Start: 2012 DTaP/Tdap/Td vaccine (1 - Tdap) DTaP/Tdap/Td vaccine (1 - Tdap) [facility] Start: 2011 Hepatitis C screening Hepatitis C sc reen [facility] Start: 2008 HIV screening HIV screen [facility] Start: 2005 Depression Screen Depression Screen [facility] Start: 1994 Varicella vaccine (1 of 2 - 2-dose childhood series) Varicella vaccine (1 of 2 - 2-dose childhood series) [facility] Start: 01-10-1994 COVID-19 Vaccine (#1) COVID-19 Vacci ne (#1) [facility] End: 05-18-2023 Ct abdomen & pelvis w/contrast material [facility] Work Phone: Comment on above: Once for 1 Occurrenc es starting 05/18/2023 until 05/18/2023 EKG 12 Lead EKG 12 Lead ECG Routine 05/18/2023 8:05 PM EDT [facility] Patient referral [facility] Work Phone: Immunizations Immunization Date Immunization Notes Care Provider Fa cility NEGATED: Highlighted row has not occurred!12-19-2023 influenza virus vaccine, unspecified formulation ALEXEI SON [facility] NEGATED: Highlighted row has not occurred!12-19-2023 SARS-CoV-2 mRNA (totheodoranameran 5y-11y) vaccine ALEXEI SON [facility] NEGATED: Highlighted row has not occurred!12-01-2019 influenza virus vaccine, live, attenuated, for intranasal use Tiffanie Dukes [facility] Payers Date Payer Category Payer Self-pay [id number] 2023 Worker's Compensation [id number] 1993 Unknown [id number] 2.16.84 0.1.553564.3.579.2.593 1993 Unknown [id number] 2.16.84 0.1.547849.3.579.2.593 1993 Unknown [id number] 2.16.84 0.1.662706.3.579.2.593 1993 Unknown [id number] 2.16.84 0.1.097747.3.579.2.593 1993 Unknown [id number] 2.16.84 0.1.725927.3.579.2.593 1993 Unknown [id number] 2.16.84 0.1.348287.3.579.2.593 1993 Unknown [id number] 2.16.84 0.1.036677.3.579.2.593 1993 Unknown [id number] 2.16.84 0.1.481901.3.579.2.593 1993 Unknown [id number] 2.16.84 0.1.650161.3.579.2.593 1993 Unknown [id number] 2.16.84 0.1.626884.3.579.2.593 1993 Unknown [id number] 2.16.84 0.1.668834.3.579.2.593 1993 Unknown [id number] 2.16.84 0.1.568923.3.579.2.593 1993 Unknown [id number] 2.16.84 0.1.674476.3.579.2.593 1993 Unknown [id number] 2.16.84 0.1.306939.3.579.2.593 1993 Unknown [id number] 2.16.84 0.1.193528.3.579.2.593 1993 Unknown [id number] 2.16.84 0.1.852737.3.579.2.593 1993 Unknown [id number] 2.16.84 0.1.463497.3.579.2.593 1993 Unknown [id number] 2.16.84 0.1.583496.3.579.2.593 1993 Unknown [id number] 2.16.84 0.1.016705.3.579.2.593 1993 Unknown [id number] 2.16.8 40.1.309889.3.579.2.182 1993 Unknown [id number] 2.16.8 40.1.046692.3.579.2.182 1993 Unknown [id number] 2.16.8 40.1.914936.3.579.2.727 1993 Unknown [id number] 2.16.8 40.1.602161.3.579.2.727 1993 Unknown [id number] 2.16.8 40.1.945747.3.579.2.727 1993 Unknown [id number] 2.16.8 40.1.166012.3.579.2.727 1993 Unknown [id number] 2.16.8 40.1.617888.3.579.2.727 1993 Unknown [id number] 2.16.84 0.1.661784.3.579.2.1259 1959 Self-pay [id number] 1959 Unknown [id number] 1959 Unknown [id number] Unknown [id number] Unknown [id number] 2.16.8 40.1.371378.3.579.2.531 Unknown [id number] 2.16.8 40.1.222114.3.579.2.531 Social History Date Type Detail Facility Start: 01-03-2022 End: 12-19-2023 Tobacco smoking status Ex-smoker (finding) [facility] Tobacco smoking status Never [facility] Sex Assigned At Female [facility] Start: 10-08-2014 End: 10-08-2015 History of tobacco use [facility] Start: 10-08-2014 End: 10-08-2015 History of tobacco use Cigarette Smoker [facility] [employer] Start: 03-12-2018 End: 05-22-2023 Cigarettes smoked current (pack per day) - Reported 0.3 [facility] [employer] Start: 03-12-2018 End: 05-22-2023 Tobacco use and exposure Smokeless tobacco non-user [facility] [employer] Start: 05-18-2023 End: 05-24-2023 Alcohol intake Current non-drinker of alcohol (finding) [facility] [employer] Start: 03-12-2018 End: 05-22-2023 Tobacco Comment quit 2016 [facility] [employer] Start: 1995 Sex Assigned At Not on file B [facility] [employer] Start: 12-04-2023 [facility] (finding[facility] Start: 1995 Sex Assigned At Female [facility] Functional Status Date Assessment Result Facility 12-19-2023 Functional Status N/A [facility] 04-14-2023 Functional Status N/A [facility] 05-06-2022 Functional Status N/A [facility] Clinical Notes 05-06-2022 to 12-19-2023 Antoinette Heard RN - 05/24/2023 10:17 AM EDT Note Date & Type Note Facility 12-19-2023 Hospital Discharg e instructions Patient Education 12/19/2023 13:21:22 BMI for Adults BMI for Adults What is BMI? Body mass index (BMI) is a number that is calculated from a person's weight and height. BMI can help estimate how much of a person's weight is composed of fat. BMI does not measure body fat directly. Rather, it is an alternative to procedures that directly measure body fat, which can be difficult and expensive. BMI can help identify people who may be at higher risk for certain medical problems. What are BMI measurements used for? BMI is used as a screening tool to identify possible weight problems. It helps determine whether a person is obese, overweight, a healthy weight, or underweight. BMI is useful for: Identifying a weight problem that may be related to a medical condition or may increase the risk for medical problems. Promoting changes, such as changes in diet and exercise, to help reach a healthy weight. BMI screening can be repeated to see if these changes are working. How is BMI calculated? BMI involves measuring your weight in relation to your height. Both height and weight are measured, and the BMI is calculated from those numbers. This can be done either in [place] ([place] or metric measurements. Note that charts and online BMI calculators are available to help you find your BMI quickly and easily without having to do these calculations yourself. To calculate your BMI in [place] ([place] measurements: 1.Measure your weight in pounds (lb). 2.Multiply the number of pounds by 703. For example, for a person who weighs 180 lb, multiply that number by 703, which equals 126,540. 3.Measure your height in inches. Then multiply that number by itself to get a measurement called inches squared. For example, for a person who is 70 inches tall, the inches squared measurement is 70 inches x 70 inches, which equals 4,900 inches squared. 4.Divide the total from step 2 (number of lb x 703) by the total from step 3 (inches squared): 126,540 4,900 = 25.8. This is your BMI. To calculate your BMI in metric measurements: 1.Measure your weight in kilograms (kg). 2.Measure your height in meters (m). Then multiply that number by itself to get a measurement called meters squared. For example, for a person who is 1.75 m tall, the meters squared measurement is 1.75 m x 1.75 m, which is equal to 3.1 meters squared. 3.Divide the number of kilograms (your weight) by the meters squared number. In this example: 70 3.1 = 22.6. This is your BMI. What do the results mean? BMI charts are used to identify whether you are underweight, normal weight, overweight, or obese. The following guidelines will be used: Underweight: BMI less than 18.5. Normal weight: BMI between 18.5 and 24.9. Overweight: BMI between 25 and 29.9. Obese: BMI of 30 or above. Keep these notes in mind: Weight includes both fat and muscle, so someone with a muscular build, such as an athlete, may have a BMI that is higher than 24.9. In cases like these, BMI is not an accurate measure of body fat. To determine if excess body fat is the cause of a BMI of 25 or higher, further assessments may need to be done by a health care provider. BMI is usually interpreted in the same way for men and women. Where to find more information For more information about BMI, including tools to quickly calculate your BMI, go to these websites: Centers for Disease Control and Prevention: www.cdc.gov [place] Heart Association: www.heart.org National Heart, Lung, and Blood [place]: www.nhlbi.nih.gov Summary Body mass index (BMI) is a number that is calculated from a person's weight and height. BMI may help estimate how much of a person's weight is composed of fat. BMI can help identify those who may be at higher risk for certain medical problems. BMI can be measured using [place]i measurements or metric measurements. BMI charts are used to identify whether you are underweight, normal weight, overweight, or obese. This information is not intended to replace advice given to you by your health care provider. Make sure you discuss any questions you have with your health care provider. Document Revised: 06/16/2020 Document Reviewed: 04/23/2020 [employer] Patient Education 2022 [employer]. 12/19/2023 13:21:18 Otitis Media, Adult, Sycp-cz-Ghuf Otitis Media, Adult Otitis media is a condition in which the middle ear is red and swollen (inflamed) and full of fluid. The middle ear is the part of the ear that contains bones for hearing as well as air that helps send sounds to the brain. The condition usually goes away on its own. What are the causes? This condition is caused by a blockage in the eustachian tube. This tube connects the middle ear to the back of the nose. It normally allows air into the middle ear. The blockage is caused by fluid or swelling. Problems that can cause blockage include: A cold or infection that affects the nose, mouth, or throat. Allergies. An irritant, such as tobacco smoke. Adenoids that have become large. The adenoids are soft tissue located in the back of the throat, behind the nose and the roof of the mouth. Growth or swelling in the upper part of the throat, just behind the nose (nasopharynx). Damage to the ear caused by a change in pressure. This is called barotrauma. What increases the risk? You are more likely to develop this condition if you: Smoke or are exposed to tobacco smoke. Have an opening in the roof of your mouth (cleft palate). Have acid reflux. Have problems in your body's defense system (immune system). What are the signs or symptoms? Symptoms of this condition include: Ear pain. Fever. Problems with hearing. Being tired. Fluid leaking from the ear. Ringing in the ear. How is this treated? This condition can go away on its own within 3 5 days. But if the condition is caused by germs (bacteria) and does not go away on its own, or if it keeps coming back, your doctor may: Give you antibiotic medicines. Give you medicines for pain. Follow these instructions at home: Take mrwy-gky-xdfyxza and prescription medicines only as told by your doctor. If you were prescribed an antibiotic medicine, take it as told by your doctor. Do not stop taking it even if you start to feel better. Keep all follow-up visits. Contact a doctor if: You have bleeding from your nose. There is a lump on your neck. You are not feeling better in 5 days. You feel worse instead of better. Get help right away if: You have pain that is not helped with medicine. You have swelling, redness, or pain around your ear. You get a stiff neck. You cannot move part of your face (paralysis). You notice that the bone behind your ear hurts when you touch it. You get a very bad headache. Summary Otitis media means that the middle ear is red, swollen, and full of fluid. This condition usually goes away on its own. If the problem does not go away, treatment may be needed. You may be given medicines to treat the infection or to treat your pain. If you were prescribed an antibiotic medicine, take it as told by your doctor. Do not stop taking it even if you start to feel better. Keep all follow-up visits. This information is not intended to replace advice given to you by your health care provider. Make sure you discuss any questions you have with your health care provider. Document Revised: 01/02/2022 Document Reviewed: 01/02/2022 [employer] Patient Education 2022 [employer]. 12/19/2023 13:21:15 Pharyngitis, Rkvh-ot-Zqrx Pharyngitis Pharyngitis is a sore throat (pharynx). This is when there is redness, pain, and swelling in your throat. Most of the time, this condition gets better on its own. In some cases, you may need medicine. What are the causes? An infection from a virus. An infection from bacteria. Allergies. What increases the risk? Being 5 24 years old. Being in crowded environments. These include: ?Daycares. ?Schools. ?Dormitories. Living in a place with cold temperatures outside. Having a weakened disease-fighting (immune) system. What are the signs or symptoms? Symptoms may vary depending on the cause. Common symptoms include: Sore throat. Tiredness (fatigue). Low-grade fever. Stuffy nose. Cough. Headache. Other symptoms may include: Glands in the neck (lymph nodes) that are swollen. Skin rashes. Film on the throat or tonsils. This can be caused by an infection from bacteria. Vomiting. Red, itchy eyes. Loss of appetite. Joint pain and muscle aches. Tonsils that are temporarily bigger than usual (enlarged). How is this treated? Many times, treatment is not needed. This condition usually gets better in 3 4 days without treatment. If the infection is caused by a bacteria, you may be need to take antibiotics. Follow these instructions at home: Medicines Take ihja-mkz-qozhemb and prescription medicines only as told by your doctor. If you were prescribed an antibiotic medicine, take it as told by your doctor. Do not stop taking the antibiotic even if you start to feel better. Use throat lozenges or sprays to soothe your throat as told by your doctor. Children can get pharyngitis. Do not give your child aspirin. Managing pain To help with pain, try: Sipping warm liquids, such as: ?Broth. ?Herbal tea. ?Warm water. Eating or drinking cold or frozen liquids, such as frozen ice pops. Rinsing your mouth (gargle) with a salt water mixture 3 4 times a day or as needed. ?To make salt water, dissolve 1 tsp (3 6 g) of salt in 1 cup (237 mL) of warm water. ?Do not swallow this mixture. Sucking on hard candy or throat lozenges. Putting a cool-mist humidifier in your bedroom at night to moisten the air. Sitting in the bathroom with the door closed for 5 10 minutes while you run hot water in the shower. General instructions Do not smoke or use any products that contain nicotine or tobacco. If you need help quitting, ask your doctor. Rest as told by your doctor. Drink enough fluid to keep your pee (urine) pale yellow. How is this prevented? Wash your hands often for at least 20 seconds with soap and water. If soap and water are not available, use hand senior gis analyst. Do not touch your eyes, nose, or mouth with unwashed hands. Wash hands after touching these areas. Do not share cups or eating utensils. Avoid close contact with people who are sick. Contact a doctor if: You have large, tender lumps in your neck. You have a rash. You cough up green, yellow-brown, or bloody spit. Get help right away if: You have a stiff neck. You drool or cannot swallow liquids. You cannot drink or take medicines without vomiting. You have very bad pain that does not go away with medicine. You have problems breathing, and it is not from a stuffy nose. You have new pain and swelling in your knees, ankles, wrists, or elbows. These symptoms may be an emergency. Get help right away. Call your local emergency services (911 in the [place] Do not wait to see if the symptoms will go away. Do not drive yourself to the hospital. Summary Pharyngitis is a sore throat (pharynx). This is when there is redness, pain, and swelling in your throat. Most of the time, pharyngitis gets better on its own. Sometimes, you may need medicine. If you were prescribed an antibiotic medicine, take it as told by your doctor. Do not stop taking the antibiotic even if you start to feel better. This information is not intended to replace advice given to you by your health care provider. Make sure you discuss any questions you have with your health care provider. Document Revised: 12/21/2021 Document Reviewed: 12/21/2021 [employer] Patient Education 2022 [employer]. Follow Up Care 12/19/2023 11:23:19 With:ELIZABETH CRUZ CNP Address: [place] [address]- When: Unknown [facility] 12-19-2023 Evaluation + Plan note Diagnostic Tests PendingGroup A Strep by PCR 12/19/23 [facility] 05-24-2023 History of Presen t illness Narrative PAT call placed to patient, reviewing meds, history, allergies PAT instruction sheet. documented in this encounter [facility] 04-14-2023 Hospital Discharg e instructions Patient Education 04/14/2023 14:12:18 Wrist Sprain, Adult Wrist Sprain, Adult A wrist sprain is a stretch or tear in the strong tissues that connect the wrist bones to each other. These strong tissues are called ligaments. There are three types of wrist sprains: Grade 1. The ligament is stretched more than normal. There may be a minor amount of wrist pain. Grade 2. The ligament is partially torn. You may be able to move your wrist, but not very much. There may be a moderate amount of wrist pain. Grade 3. The ligament or ligaments are completely torn. You may find it difficult to move your wrist even a little. There may be a significant amount of wrist pain. What are the causes? This condition may be caused by using the wrist too much during sports, exercise, or work. It can also happen due to a fall or during an accident. What increases the risk? You are more likely to develop this condition if: You had a previous wrist or arm injury. You have poor wrist strength and flexibility. You play contact sports, such as football or soccer. You participate in sports that may result in a fall, such as skateboarding, biking, skiing, or snowboarding. You do not exercise regularly. You use exercise equipment that does not fit well. What are the signs or symptoms? Symptoms of this condition include: Pain in the wrist, arm, or hand. Swelling or bruised skin near the wrist, hand, or arm. The skin may look yellow or blue. Stiffness or trouble moving the hand. Hearing a noise, like a pop or a snap, at the time of injury, or feeling a tear at the time of the injury. A warm feeling in the skin around the wrist. How is this diagnosed? This condition is diagnosed with a physical exam. Sometimes an X-ray is taken to make sure a bone did not break. You may also have an MRI of your wrist to check for torn ligaments. How is this treated? This condition is treated by resting and applying ice to your wrist. Additional treatment may include: Taking medicine for pain and inflammation. Wearing a splint, brace, or cast for a short period of time to keep your wrist from moving (immobilized). Doing exercises to strengthen and stretch your wrist. Having surgery. This may be done if the ligament is completely torn. Follow these instructions at home: If you have a splint or brace: Wear the splint or brace as told by your health care provider. Remove it only as told by your health care provider. Loosen it if your fingers tingle, become numb, or turn cold and blue. Keep it clean. If the splint or brace is not waterproof: ?Do not let it get wet. ?Cover it with a watertight covering when you take a bath or a shower. If you have a cast: Do not put pressure on any part of the cast until it is fully hardened. This may take several hours. Do not stick anything inside the cast to scratch your skin. Doing that increases your risk of infection. Check the skin around the cast every day. Tell your health care provider about any concerns. You may put lotion on dry skin around the edges of the cast. Do not put lotion on the skin underneath the cast. Keep it clean. If the cast is not waterproof: ?Do not let it get wet. ?Cover it with a watertight covering when you take a bath or shower. Managing pain, stiffness, and swelling If directed, put ice on the injured area. To do this: ?If you have a removable splint or brace, remove it as told by your health care provider. ?Put ice in a plastic bag. ?Place a towel between your skin and the bag or between the splint or cast and the bag. ?Leave the ice on for 20 minutes, 2 3 times a day. ?Remove the ice if your skin turns bright red. This is very important. If you cannot feel pain, heat, or cold, you have a greater risk of damage to the area. Move your fingers often to reduce stiffness and swelling. Raise (elevate) the injured area above the level of your heart while you are sitting or lying down. Activity Rest your wrist as told by your health care provider. Do not do things that cause pain. Ask your health care provider when it is safe to drive if you have a splint, brace, or cast on your wrist. Do exercises as told by your health care provider. Return to your normal activities as told by your health care provider. Ask your health care provider what activities are safe for you. General instructions Take qcut-wuj-ctibuhj and prescription medicines only as told by your health care provider. Do not use any products that contain nicotine or tobacco, such as cigarettes, e-cigarettes, and chewing tobacco. These can delay healing. If you need help quitting, ask your health care provider. Keep all follow-up visits. This is important. Contact a health care provider if: Your pain, bruising, or swelling gets worse. Your skin becomes red, gets a rash, or has open sores. Your pain does not get better or it gets worse. Get help right away if: You have a new or sudden sharp pain in the hand, arm, or wrist. You have tingling or numbness in your hand. Your fingers turn white, very red, or cold and blue. You cannot move your fingers. Summary A wrist sprain is damage to ligaments in your wrist. Wrist sprains can range from mild to severe. Return to your normal activities as told by your health care provider. Ask your health care provider what activities are safe for you. You may need to wear a splint, brace, or cast for a short period of time. This information is not intended to replace advice given to you by your health care provider. Make sure you discuss any questions you have with your health care provider. Document Revised: 01/31/2021 Document Reviewed: 01/31/2021 [employer] Patient Education 2022 [employer]. 04/14/2023 14:12:18 RICE Therapy for Routine Care of Injuries RICE Therapy for Routine Care of Injuries The routine care of many injuries includes rest, ice, compression, and elevation (RICE therapy). RICE therapy is often recommended for injuries to soft tissues, such as muscle strain, sprains, bruises, and overuse injuries. It can also be used for some bone injuries. Using RICE therapy can help to relieve pain and lessen swelling. Supplies needed: Ice. Plastic bag. Towel. Elastic bandage. Pillow or pillows to raise (elevate) the injured body part. How to care for your injury with RICE therapy Rest Rest your injury. This may help with the healing process. Rest usually involves limiting your normal activities and not using the injured part of your body. Generally, you can return to your normal activities when your health care provider says it is okay and you can do them without much discomfort. If you rest the injury too much, it may not heal as well. Some injuries heal better with early movement instead of resting for too long. Talk with your health care provider about how you should limit your activities and whether you should start fydsi-ae-tvfaqd exercises for your injury. Ice Ice your injury to lessen swelling and pain. Do not apply ice directly to your skin. Put ice in a plastic bag. Place a towel between your skin and the bag. Leave the ice on for 20 minutes, 2 3 times a day. Use ice on as many days as told by your health care provider. Compression Put pressure (compression) on your injured area to control swelling, give support, and help with discomfort. Compression may be done with an elastic bandage. If an elastic bandage has been applied, follow these general tips: Use the bandage as directed by the maker of the bandage that you are using. Do not wrap the bandage too tightly. That may block (cut off) circulation in the arm or leg in the area below the bandage. ?If part of your body beyond the bandage becomes blue, numb, cold, swollen, or more painful, your bandage is probably too tight. If this occurs, remove your bandage and reapply it more loosely. Remove and reapply the bandage every 3 4 hours or as told by your health care provider. See your health care provider if the bandage seems to be making your problems worse rather than better. Elevation Elevate your injured area to lessen swelling and pain. If possible, elevate your injured area at or above the level of your heart or the center of your chest. Contact a health care provider if: Your pain and swelling continue. Your symptoms are getting worse rather than improving. Having these problems may mean that you need further evaluation or imaging tests, such as X-rays or an MRI. Sometimes, X-rays may not show a small broken bone (fracture) until days after the injury happened. Make a follow-up appointment with your health care provider. Ask your health care provider, or the department that is doing the imaging test, when your results will be ready. Get help right away if: You have sudden severe pain at or below the area of your injury. You have redness or increased swelling around your injury. You have tingling or numbness at or below the area of your injury and it does not improve after you remove the elastic bandage. Summary The routine care of many injuries includes rest, ice, compression, and elevation (RICE therapy). Using RICE therapy can help to relieve pain and lessen swelling. RICE therapy is often recommended for injuries to soft tissues, such as muscle strain, sprains, bruises, and overuse injuries. It can also be used for some bone injuries. Seek medical care if your pain and swelling continue or if your symptoms are getting worse rather than improving. This information is not intended to replace advice given to you by your health care provider. Make sure you discuss any questions you have with your health care provider. Document Revised: 11/29/2020 Document Reviewed: 06/14/2018 [employer] Patient Education 2020 [employer]. Follow Up Care 04/14/2023 13:31:33 With:[facility] Address: [address] [place] [id number] Business (1) When:04/17/2023 14:10:40 With:Carol Gutierrez Address: [address] [place] [address], [address] [place] [phone] Business (1) When:Within 3 Day(s) [facility] 04-14-2023 Evaluation + Plan note Extrac carie from: Title:ED Note Author:Anton Waldrop PA-C te:04/14/23 Wrist sprain (S63.509A: Unsp ecified sprain of unspecified wrist, initial encounter) Orders: XR Wrist 3+ Views Left [facility]02-02-2023 NoteOP Note OPERATION DATE: 11/09/2022 PROCEDURE: Bilateral laparoscopic salpingectomy. PREOPERATIVE DIAGNOSIS: Multiparity, request for sterilization. POSTOPERATIVE DIAGNOSIS: Multiparity, request for sterilization. ANESTHESIA: General. SURGEON: Mark Rosales D.O. INTERNAL COMMUNICATIONS SPECIALIST: JAMES Sheets URINE OUTPUT: Yellow and clear. BLOOD LOSS: 5 mL. FINDINGS: Normal appearing ovaries, uterus and tubes. Please notice, uterus was slightly enlarged due to prior delivery. SPECIMEN: Bilateral tubes. PROCEDURE: The patient was taken back to the Operating Room where she was given general anesthesia without difficulty. She was then prepped and draped in the normal sterile fashion after being placed in a dorsal lithotomy position. A wet sponge stick was placed into the patient's vagina. Attention was then turned to the patient's abdomen, where a scalpel was used to make a small infraumbilical incision. The S retractors were then used to dissect the underlying layers until the fascia could be seen. The fascia was then grasped with Constantino clamps and tented up. A knife was then used to make a small incision to the fascia. The muscle was identified, at that time two sutures of #0 Vicryl on a GI needle was then used and placed through the fascia. The peritoneum was then identified and entered bluntly. The 10-4 Sebastian was then placed into the patient's abdomen. This was confirmed with direct visualization of the bowel, using the laparoscope. The patient's abdomen was then insufflated using approximately 4 liters of CO2 gas. Survey of the patient's abdomen demonstrated ovaries were normal in appearance as well as both tubes and uterus. A second and third rt and lt lateral ports which were 7-8 and 5 mm in size, was then placed after the skin incision was made under direct visualization The patient's tube on the patient's right side was identified and tented up using a grasper, the LigaSure apparatus was then used to come across the mesosalpinx from the fimbriated end to the insertion site at the uterus, the tube was then amputated and removed in its entirety. This was done on the contralateral side. The tubes were then removed from the patient's abdomen. Excellent hemostasis was noted. The lateral ports were then removed under direct visualization with excellent hemostasis. All instruments were removed from the patient's abdomen. The fascia was closed using the #0 Vicryl on GI needle. The skin was closed using 4-0 Vicryl subcuticularly. All instruments were removed from the patient's vagina as well. The patient was taken out of the dorsal lithotomy position and placed in the supine position and taken to recovery in stable condition. Sponge, lap and needle counts were correct x2.[facility] 11-09-2022 NoteOPERATIVE NOTE OPERATION DATE: 12/02/2022 PROCEDURE: Bilateral laparoscopic salpingectomy. PREOPERATIVE DIAGNOSIS: Multiparity, request for sterilization. POSTOPERATIVE DIAGNOSIS: Multiparity, request for sterilization. ANESTHESIA: General. SURGEON: Mark Rosales D.O. INTERNAL COMMUNICATIONS SPECIALIST: JAMES Sheets URINE OUTPUT: Yellow and clear. BLOOD LOSS: 5 mL. FINDINGS: Normal appearing ovaries, uterus and tubes. Please notice, uterus was slightly enlarged due to prior delivery. SPECIMEN: Bilateral tubes. PROCEDURE: The patient was taken back to the Operating Room where she was given general anesthesia without difficulty. She was then prepped and draped in the normal sterile fashion after being placed in a dorsal lithotomy position. A wet sponge stick was placed into the patient's vagina. Attention was then turned to the patient's abdomen, where a scalpel was used to make a small infraumbilical incision. The S retractors were then used to dissect the underlying layers until the fascia could be seen. The fascia was then grasped with Constantino clamps and tented up. A knife was then used to make a small incision to the fascia. The muscle was identified, at that time two sutures of #0 Vicryl on a GI needle was then used and placed through the fascia. The peritoneum was then identified and entered bluntly. The 10-4 Sebastian was then placed into the patient's abdomen. This was confirmed with direct visualization of the bowel, using the laparoscope. The patient's abdomen was then insufflated using approximately 4 liters of CO2 gas. Survey of the patient's abdomen demonstrated ovaries were normal in appearance as well as both tubes and uterus. A second and third rt and lt lateral ports which were 7-8 and 5 mm in size, was then placed after the skin incision was made under direct visualization The patient's tube on the patient's right side was identified and tented up using a grasper, the LigaSure apparatus was then used to come across the mesosalpinx from the fimbriated end to the insertion site at the uterus, the tube was then amputated and removed in its entirety. This was done on the contralateral side. The tubes were then removed from the patient's abdomen. Excellent hemostasis was noted. The lateral ports were then removed under direct visualization with excellent hemostasis. All instruments were removed from the patient's abdomen. The fascia was closed using the #0 Vicryl on GI needle. The skin was closed using 4-0 Vicryl subcuticularly. All instruments were removed from the patient's vagina as well. The patient was taken out of the dorsal lithotomy position and placed in the supine position and taken to recovery in stable condition. Sponge, lap and needle counts were correct x2.[facility] 09-18-2022 NoteDISCHARGE SUMMARY DISCHARGE DATE: 10/02/2022 PRIMARY DIAGNOSES: 1. Intrauterine at 39 weeks. 2. Morbid obesity. 3. Previous . PROCEDURE: Repeat low transverse section. HOSPITAL COURSE: As expected. Please see chart for full details. LABORATORY DATA: Please see chart. COMPLICATIONS: None. DISCHARGE CONDITION: Stable. CONSULTATION: Anesthesia. DISCHARGE INSTRUCTIONS: 1.Diet: Regular. 2.Medications: a.Percocet 5/325 one to two p.o. every 4-6 hours p.r.n. pain. b.Motrin 800 one p.o. every 8 hours p.r.n. pain. 3.Followup in one week. Restrictions: Pelvic rest for 6 weeks. No heavy lifting. May drive when pain free and no longer on narcotics.[id number] NoteDISCHARGE DATE: 09/20/2022 PRIMARY DIAGNOSES: 1. Intrauterine at 39 weeks. 2. Morbid obesity. 3. Previous . PROCEDURE: Repeat low transverse section. HOSPITAL COURSE: As expected. Please see chart for full details. LABORATORY DATA: Please see chart. COMPLICATIONS: None. DISCHARGE CONDITION: Stable. CONSULTATION: Anesthesia. DISCHARGE INSTRUCTIONS: 1.Diet: Regular. 2.Medications: a.Percocet 5/325 one to two p.o. every 4-6 hours p.r.n. pain. b.Motrin 800 one p.o. every 8 hours p.r.n. pain. 3.Followup in one week. Restrictions: Pelvic rest for 6 weeks. No heavy lifting. May drive when pain free and no longer on narcotics.[id number] NoteOPERATIVE NOTE OPERATION DATE: 09/18/2022 PROCEDURE: Repeat low transverse section. PREOPERATIVE DIAGNOSIS: 1. Intrauterine at 39 weeks. 2. Morbid obesity. 3. Previous . POSTOPERATIVE DIAGNOSIS: 1. Intrauterine at 39 weeks. 2. Morbid obesity. 3. Previous . ANESTHESIA: Spinal with Duramorph. SURGEON: Mark Rosales D.O. INTERNAL COMMUNICATIONS SPECIALIST: JAMES URINE OUTPUT: Yellow and clear. BLOOD LOSS: 575 mL. FINDINGS: Viable . Apgars 8 at 1, 9 at 5. Weight unknown at this time. SPECIMEN: Placenta. PROCEDURE: Patient was taken back to the Operating Room where she was given a spinal anesthesia with Duramorph without difficulty. She was prepped and draped in the normal sterile fashion. A Pfannenstiel skin incision was then made 2 cm above the symphysis pubis and carried down to underlying rectus fascia using a Bovie. The fascia was incised in the midline and extended laterally using Garcia scissors. Two Constantino clamps were placed on the superior aspect of the fascia and dissected off the underlying rectus muscles. The same was performed on the inferior aspect as well. The muscles were then in the midline. Peritoneum was identified and entered bluntly. The peritoneum was then extended superiorly and inferiorly with good visualization of the bladder. The bladder blade was inserted. A low transverse incision was made on the patient's uterus and extended laterally digitally. The was then delivered atraumatically after the bladder blade was removed in the cephalic position. The cord was clamped and cut. Cord blood was obtained. The was handed off to awaiting team. The patient's placenta was spontaneously delivered. The uterus was then exteriorized. The uterus was cleared of all clots and debris. The bladder blade was reinserted. The patient's uterine incision was closed using #0 Vicryl in a running lock fashion. Excellent hemostasis was assured. The uterus was then returned to the patient's abdomen. The patient's abdomen was copiously irrigated using warm saline. Peritoneal gutters were cleared of all clots and debris. Again excellent hemostasis was assured. The patient's peritoneum was closed using 3-0 Vicryl in a running fashion. The patient's fascia was closed using #0 Vicryl in a running fashion. The patient's skin was closed using 4-0 Vicryl subcuticularly. The patient tolerated the procedure well. Sponge, lap, and needle counts were correct x2. The patient was taken to the Recovery Room in stable condition.[facility] [id number] Evaluation + Plan noteExtracted from: Title:ED Note Author:Tiffanie Dukes DO Date :05/06/22 Acute UTI (urinary tract inf ection) (N39.0: Urinary tract infection, site not specified) Epigastric pain (R10.13: Epigastric pain) Nausea and vomiting (R11.2: Nausea with vomiting, unspecified) Orders: Al hydroxide/Mg hydroxide/simethicone, 30 mL, Susp-Oral, Oral, Once, Stop date 05/06/22 1:01:00 EDT, STAT, Start date 05/06/22 1:01:00 EDT atropine/hyoscyamine/PB/scopolamine, 10 mL, Elixir, Oral, Once, Stop date 05/06/22 1:01:00 EDT, STAT, Start date 05/06/22 1:01:00 EDT cephalexin, 500 mg = 1 cap(s), Cap, Oral, Once, Stop date 05/06/22 2:21:00 EDT, STAT, Start date 05/06/22 2:21:00 EDT, 05/06/22 2:21:00 EDT cephalexin, 500 mg = 1 cap(s), Oral, TID, X 5 day(s), # 15 cap(s), Refills(s) 0 famotidine, 20 mg = 1 tab(s), Oral, Daily, # 14 tab(s), Refills(s) 0 famotidine, 20 mg = 2 mL, Soln-IV, IV Push, Once, Stop date 05/06/22 1:01:00 EDT, STAT, Start date 05/06/22 1:01:00 EDT, 05/06/22 1:01:00 EDT lidocaine topical, 200 mg, 10 mL, Soln-Oral, Oral, Once, Stop date 05/06/22 1:01:00 EDT, STAT, Start date 05/06/22 1:01:00 EDT metoclopramide, 10 mg = 2 mL, Injection, IV Push, Once, Stop date 05/06/22 1:01:00 EDT, STAT, Start date 05/06/22 1:01:00 EDT, 05/06/22 1:01:00 EDT ondansetron, 4 mg = 1 tab(s), Oral, q8hr, PRN Nausea/Vomiting, # 12 tab(s), Refills(s) 0 Sodium Chloride 0.9% intravenous solution, Soln-IV, Misc, Once, Stop date 05/06/22 1:13:55 EDT, Physician Stop, 05/06/22 1:13:55 EDT Sodium Chloride 0.9% intravenous solution, 1,000 mL, Soln-IV, IV, Once, Stop date 05/06/22 1:01:00 EDT, STAT, Start date 05/06/22 1:01:00 EDT, Infuse over 61, minute(s) Automated Diff Basic Metabolic Panel CBC w/ Auto Diff eGFR Hepatic Function Panel Lipase Level UA With Cult Reflex Urine Culture XR Chest Single View Diagnostic Tests Pending * Urine Culture 05/06/22 Future Scheduled Tests Laboratory* Rapid COVID Antigen ([facility]) 01/03/22 [facility]07[facility]30-2022 Hospital Discharge instructions Patient Education 05/06/2022 02:32:57 Urinary Tract Infection, Adult, Ljei-gq-Dbbt Urinary Tract Infection, Adult A urinary tract infection (UTI) is an infection of any part of the urinary tract. The urinary tractincludes: The kidneys. The ureters. The bladder. The urethra. These organs make, store, and get rid of pee (urine) in the body. What are the causes? This is caused by germs (bacteria) in your genital area. These germs grow and cause swelling (inflammation) of your urinary tract. What increases the risk? You are more likely to develop this condition if: You have a small, thin tube (catheter) to drain pee. You cannot control when you pee or poop (incontinence). You are female, and: ?You use these methods to prevent : ?A medicine that kills sperm (spermicide). ?A device that blocks sperm (diaphragm). ?You have low levels of a female hormone (estrogen). ?You are . You have genes that add to your risk. You are sexually active. You take antibiotic medicines. You have trouble peeing because of: ?A prostate that is bigger than normal, if you are male. ?A blockage in the part of your body that drains pee from the bladder (urethra). ?A kidney stone. ?A nerve condition that affects your bladder (neurogenic bladder). ?Not getting enough to drink. ?Not peeing often enough. You have other conditions, such as: ?Diabetes. ?A weak disease-fighting system (immune system). ?Sickle cell disease. ?Gout. ?Injury of the spine. What are the signs or symptoms? Symptoms of this condition include: Needing to pee right away (urgently). Peeing often. Peeing small amounts often. Pain or burning when peeing. Blood in the pee. Pee that smells bad or not like normal. Trouble peeing. Pee that is cloudy. Fluid coming from the vagina, if you are female. Pain in the belly or lower back. Other symptoms include: Throwing up (vomiting). No urge to eat. Feeling mixed up (confused). Being tired and grouchy (irritable). A fever. Watery poop (diarrhea). How is this treated? This condition may be treated with: Antibiotic medicine. Other medicines. Drinking enough water. Follow these instructions at home: Medicines Take gfzg-xeq-qwycazt and prescription medicines only as told by your doctor. If you were prescribed an antibiotic medicine, take it as told by your doctor. Do not stop taking it even if you start to feel better. General instructions Make sure you: ?Pee until your bladder is empty. ?Do not hold pee for a long time. ?Empty your bladder after sex. ?Wipe from front to back after pooping if you are a female. Use each tissue one time when you wipe. Drink enough fluid to keep your pee pale yellow. Keep all follow-up visits as told by your doctor. This is important. Contact a doctor if: You do not get better after 1 2 days. Your symptoms go away and then come back. Get help right away if: You have very bad back pain. You have very bad pain in your lower belly. You have a fever. You are sick to your stomach (nauseous). You are throwing up. Summary A urinary tract infection (UTI) is an infection of any part of the urinary tract. This condition is caused by germs in your genital area. There are many risk factors for a UTI. These include having a small, thin tube to drain pee and notbeing able to control when you pee or poop. Treatment includes antibiotic medicines for germs. Drink enough fluid to keep your pee pale yellow. This information is not intended to replace advice given to you by your health care provider. Make sure you discuss any questions you have with your health care provider. Document Released: 03/12/2009 Document Revised: 09/11/2019 Document Reviewed: 04/03/2019 [employer] Patient Education 2020 [employer]. 05/06/2022 02:32:57 Abdominal Pain During , Xjiw-rm-Imzh Abdominal Pain During Belly (abdominal) pain is common during . There are many possible causes. Most of the time, it is not a serious problem. Other times, it can be a sign that something is wrong with the . Always tell your doctor if you have belly pain. Follow these instructions at home: Do not have sex or put anything in your vagina until your pain goes away completely. Get plenty of rest until your pain gets better. Drink enough fluid to keep your pee (urine) pale yellow. Take hdxa-ard-wlmektn and prescription medicines only as told by your doctor. Keep all follow-up visits as told by your doctor. This is important. Contact a doctor if: Your pain continues or gets worse after resting. You have lower belly pain that: ?Comes and goes at regular times. ?Spreads to your back. ?Feels like menstrual cramps. You have pain or burning when you pee (urinate). Get help right away if: You have a fever or chills. You have vaginal bleeding. You are leaking fluid from your vagina. You are passing tissue from your vagina. You throw up (vomit) for more than 24 hours. You have watery poop (diarrhea) for more than 24 hours. Your baby is moving less than usual. You feel very weak or faint. You have shortness of breath. You have very bad pain in your upper belly. Summary Belly (abdominal) pain is common during . There are many possible causes. If you have belly pain during , tell your doctor right away. Keep all follow-up visits as told by your doctor. This is important. This information is not intended to replace advice given to you by your health care provider. Make sure you discuss any questions you have with your health care provider. Document Released: 09/12/2010 Document Revised: 01/12/2020 Document Reviewed: 12/27/2017 [employer] Patient Education 2020 [employer]. Follow Up Care 05/06/2022 00:57:48 With:Shanique Loomis Address: [address] [place] [id number] When:05/09/2022 Comments:Take the antibiotics as prescribed you have completed the course. You can use the nausea medicationevery 6 hours as needed for nausea and vomiting. Take the Pepcid daily for the next 10 days. Pleasefollow-up with your [facility]IN[facility] COUNSELOR and primary care doctor in the next 2 to 3 days for reevaluation. Pleasereturn the ED for any new or worsening symptoms. [facility] Calculus of gallbladder without cholecystitis without obstruction- Primary Calculus of gallbladder without mention of cholecystitis or obstruction documented in this encounter [facility] Diagnosis Onset Date Resolution Status BMI 50.0-59.9, adult acute QASIM (generalized anxiety disorder) acute MDD (major depressive disorder) acute Obesity, morbid, BMI 50 or higher [facility] Work Phone: Evaluation note* Diagnosis Onset Date Resolution Status BMI 50.0-59.9, adult acute QASIM (generalized anxiety disorder) acute MDD (major depressive disorder) acute Obesity, morbid, BMI 50 or higher acute BMI 50.0-59.9, adult acute QASIM (generalized anxiety disorder) acute MDD (major depressive disorder) acute Obesity, morbid, BMI 50 or higher acute [facility] Work Phone: Evaluation note* Diagnosis Onset Date Resolution Status Knee pain, left noneactive [facility] Work Phone: Evaluation note* Diagnosis Onset Date Resolution Status Left knee sprain noneactive Knee pain, left noneactive [facility] Work Phone: Hospital course Narrative No data available for this section [facility]* Attachments The following attachments cannot be sent through Care Everywhere. * Gallstones ([place]) [facility] No data available for this section [facility] No data available for this section [facility] Summary Purpose Family History No Family History Records Found Relationship Condition Age at Onset Recorded Date/T arturo Not Specified Diabetes mellitus Unknown High blood cholesterol Unknown Heart disease Unknown Myocardial infarction Unknown Malignant neoplasm Unknown Cerebrovascular accident (CVA) Unknown Not Specified Polyp of corpus uteri Unknown Relationship Condition Age at Onset Recorded Date/T arturo Not Specified Diabetes mellitus Unknown High blood cholesterol Unknown Heart disease Unknown Myocardial infarction Unknown Malignant neoplasm Unknown Cerebrovascular accident (CVA) Unknown mother Polyp of corpus uteri Unknown Advance Directives No Advanced Directives Records FoundLatest Code Status on File Code Status Date Activated Date Inactivated Comments Full Code 03/20/2018 8:15 AM 03/20/2018 11:52 AM Latest Code Status on File Code Status Date Activated Date Inactivated Comments Full Code 05/28/2023 6:49 AM 05/28/2023 3:38 PM Code Status History Code Status Date Activated Date Inactivated Comments Full Code 03/20/2018 8:15 AM 03/20/2018 11:52 AM Advance Directive Response Recorded Date/ Time Advance Directives No August 4:32pm Chief Complaint and Reason for Visit Chief Complaint est care E66.01 Z68.43 F32.9 F41.1 Z13.220 Reason for Visit BMI 50.0-59.9, adult QASIM (generalized anxiety disorder) MDD (major depressive disorder) Obesity, morbid, BMI 50 or higher Chief Complaint est care E66.01 Z68.43 F32.9 F41.1 Z13.220 4 week follow up Reason for Visit BMI 50.0-59.9, adult QASIM (generalized anxiety disorder) MDD (major depressive disorder) Obesity, morbid, BMI 50 or higher BMI 50.0-59.9, adult QASIM (generalized anxiety disorder) MDD (major depressive disorder) Obesity, morbid, BMI 50 or higher Chief Complaint left knee injury M25.562 Reason for Visit Knee pain, left Chief Complaint left knee injury M25.562 Reason for Visit Left knee sprain Knee pain, left Additional Source Comments INFORMATION SOURCE (unrecogn ized section and content) DATE CREATED AUTHOR 03/27/2018 [facility] DATE CREATED AUTHOR AUTHOR'S ORGANIZ ATION 04/28/2019 [facility] DATE CREATED AUTHOR AUTHOR'S ORGANIZ ATION [facility]/14/20[facility] DATE CREATED AUTHOR AUTHOR'S ORGANIZ ATION 05/31/2023 [facility] DATE CREATED AUTHOR AUTHOR'S ORGANIZ ATION 12/20/2023 [facility] DATE CREATED AUTHOR AUTHOR'S ORGANIZ ATION 02/28/2024 [facility] DATE CREATED AUTHOR AUTHOR'S ORGANIZ ATION 06/12/2024 [facility] Care Team (unrecognized sect ion and content) Electrical Contacts Adjuster Relationship Specialty Start Date End Date Mirza Mcmullen APRN - CNP PCP - General Family Medicine 11/28/17 Electrical Contacts Adjuster Relationship Specialty Start Date End Date Mirza Mcmullen APRN - CNP PCP - General Family Medicine 11/28/17 Team Status: Active Member Role Status Dates Elizabeth Cruz DNP Primary Care Provider Active Team Status: Inactive Member Role Status Dates Elizabeth Cruz DNP Attending Provider Active S tart: December 04, 2023 End: December 04, 2023 Mirza Mcmuleln NP Primary Care Provider Active St art: December 04, 2023 End: December 04, 2023 Team Status: Inactive Member Role Status Dates Elizabeth Cruz DNP Primary Care Provid er, Attending Provider Active Start: December 28, 2023 End: December 28, 2023 Team Status: Inactive Member Role Status Dates Elizabeth Cruz DNP Primary Care Provid er, Attending Provider Active Start: January 03, 2024 End: January 03, 2024 Team Status: Inactive Member Role Status Dates Elizabeth Cruz DNP Primary Care Provider Active Start: June 11, 2024 End: June 11, 2024 Jessie Alvarado APRN Attending Provider Active Sta rt: June 11, 2024 End: June 11, 2024 Team Status: Active Member Role Status Dates Elizabeth Cruz DNP Primary Care Provider Active Start: June 11, 2024 Jessie Alvarado APRN Attending Provider Active Sta rt: June 11, 2024 Reason for Visit (unrecogniz ed section and content) Reason Comments Chest Pain Under left breast th at radiates to the right breast Loss of Consciousness Per EMS about 10 s econds Ordered Prescriptions (unrec ognized section and content) Prescription Sig Dispensed Refills Start Date End Da te ondansetron (ZOFRAN-ODT) 4 MG disintegrating tablet Take 1 tablet by mouth 3 times daily as needed for Nausea or Vomiting 21 tablet 0 05/18/2023 etodolac (LODINE) 400 MG tablet Take 1 tablet by mouth 2 times daily 14 tablet 0 05/18/2023 dicyclomine (BENTYL) 20 MG tablet Take 1 tablet by mouth 4 times daily as needed (abdominal pain) 20 tablet 0 05/18/2023 Scheduled Active and Recently Administ ered Medications (unrecognized section and content) Medication Order 05/16/2023 05/17/2023 05/18/2023 aluminum & magnesium hydroxide-simethicone (MAALOX) 30 mL, lidocaine viscous hcl (XYLOCAINE) 5 mL (GI COCKTAIL) (COMPLETED) Oral, ONCE, On Sun05/18/23 at 1957, For 1 dose, Take 5 mL from lidocaine viscous 2% cup and mix with 30 mL of maalox and then administer. 2017 (Given - Provid er: Christal Cortez RN) famotidine (PEPCID) 20 mg in sodium chloride (PF) 0.9 % 10 mL injection (COMPLETED) 20 mg, IntraVENous, ONCE, 1 dose, On Sun05/18/23 at 1956, IV Push over minimum of 2 minutes - Dilute with 10 mL NS 2013 (Given - Provid er: Christal Cortez RN) ketorolac (TORADOL) injection 30 mg (COMPLETED) 30 mg, IntraVENous, ONCE, 1 dose, On Sun05/18/23 at 1957 2016 (Given - Provid er: Christal Cortez, MOISE) morphine sulfate (PF) injection 4 mg (COMPLETED) 4 mg, IntraVENous, ONCE, 1 dose, On Sun05/18/23 at 2230, If oral and IV narcotics ordered, use oral first and only use IV if oral is ineffective or cannot take oral. Do Not give oral and IV within 1 hour of each other unless specifically ordered. 2231 (Given - Provid er: Christal Cortez RN) ondansetron (ZOFRAN) injection 4 mg (COMPLETED) 4 mg, IntraVENous, ONCE, 1 dose, On Sun05/18/23 at 1956 2015 (Given - Provid er: Christal Cortez, MOISE) sodium chloride 0.9 % bolus 1,000 mL (COMPLETED) 1,000 mL, IntraVENous, at 495.9 mL/hr, Administer over 121 Minutes, ONCE, On Sun05/18/23 at 1956, For 1 dose 2012 (New Bag - Prov ider: Christal Cortez RN)2156 (Stopped - Provider: Christal Cortez RN) PRN Medication Order 05/16/2023 05/17/2023 05/18/2023 iopamidol (ISOVUE-300) 61 % injection 70 mL (COMPLETED) 70 mL, IntraVENous, IMG ONCE PRN, 1 dose, Starting on Sun05/18/23 at 2120, Until Sun05/18/23 at 2126, Other 2126 (Given - Provid er: Manjula Joiner) Goals (unrecognized section and content) Goals may be documented in a n alternate section FOR RECORDS PERTAINING TO PATIENTS WHO ARE OR HAVE BEEN ENROLLED IN A CHEMICAL DEPENDENCY/SUBSTANCEABUSE PROGRAM, SOME INFORMATION MAY BE OMITTED. This clinical summary was aggregated from multiple sources. Caution should be exercised in using it in the provision of clinical care. This summary normalizes information from multiple sources, and as a consequence, information in this document may materially change the coding, format and clinical context of patient data. In addition, data may be omitted in some cases. CLINICAL DECISIONS SHOULD BE BASED ON THE PRIMARY CLINICAL RECORDS. [facility] [email or web address] [email or web address]. provides no warranty or guarantee of the accuracy or completeness of information in this document.
== END 2024-08-01 06:32 | disposition home or self-care (01) ==
LOC: MRI 06:31
PROVIDERS: PCP Family Medicine; Visit Provider Family Medicine
DX: S89.91XA Unspecified injury of right lower leg, initial encounter (principal); Z00.00 Encounter for general adult medical examination without abnormal findings
CPT/HCPCS: 36415; 73721; 80053; 80061; 83036; 83525; 83540; 84436; 84443; 84481; 85025

== ENCOUNTER 2024-08-01 07:24 | Outpatient (OUT) | payer BC, SELFPAY ==
--- OUTSIDE RECORDS SUMMARY | 2024-08-01 07:27 | XMS_ITS | CCD ---
Author Organization [facility] Care Team Providers Care Computer Artist Name Role Phone Shanique Loomis Primary Care [...] Unavailable NARCISA ., DR MAGAÑA Admitting Unavailable NARCIAS ., DR MAGAÑA Attending Unavailable REQUEST, DR [...] Consulting Unavailable Carol Gutierrez Primary Care Physician 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 HELPER - ASHWIN Mirza Primary Care Provider [phone] KEMI MIRZA Primary Care Unavailable ELSA SCOTT Admitting Unavailable ELSA SCOTT Attending Unavailable MIRZA MCMULLEN Primary Care Unavailable ELIZABETH CRUZ Primary Care Physician Barak Gerer Attending Unavailable VLADISLAV, SHANIQUE Primary Care Unavailable ALEXEI SON Attending Unavailable VLADISLAV, SHANIQUE Primary Care Unavailable Madhu Mcnamara Attending Unavailable Jadon SANTANA Attending Unavailable ALEXEI SON Admitting Unavailable ALEXEI SON Attending Unavailable AUTUMN Cruz Primary Care Provider AUTUMN Cruz Attending Provider [phone] MARK ROSALES Attending Unavailable Nancy, AUTUMN Johnson Primary Care Provider DAHLIA Alvarado Attending Provider [phone] Elizabeth Cruz Attending Unavailable Elizabeth Cruz Admitting Unavailable Elizabeth Cruz Primary Care Unavailable Jessie Alvarado Admitting Unavailable Jessie Alvarado Attending Unavailable Elizabeth Cruz Primary Care Unavailable Allergies Allergy Classification Reported Allergen(s) Allergy Type Date of Onset Reaction(s) Facility (9 sources) Amoxicillin; Translations: [amoxicillin] [facility] Penicillins; Translations: [penicillins] Drug allergy 06-30-2014 [facility] (1 source) Amoxicillin Drug Allergy [facility] (1 source) Penicillin Drug Allergy [facility] (1 source) Amoxicillin Drug Allergy 06-11-2024 [facility] Medications Current Medications Medication Drug [...] day(s), # 5 tab(s), Refills(s) 0, Pharmacy: [facility]/pharmacy #[id number], 155, cm, 12/19/23 12:54:00 EDT, Height/Length [...] day, # 14 tab(s), Refills(s) 0, Pharmacy: [facility]/pharmacy #[id number], 155, cm, 04/14/23 13:45:00 EDT, Height/Length Dosing, 120, kg, 04/14/23 13:45:00 EDT, Weight Dosing Start Date: 04/14/23 Status: Ordered Magnet (No Known Home Meds) (1 source) Start: 06-11-2024 Magnet (No Kn own Home Meds) Active June 11, 2024 12:00am predniSONE 20 mg oral tablet (2 sources) Start: 12-19-2023 End: 12-24-2023 take 2 tablets by mouth once daily predniSONE 20 mg Tab 40 mg = 2 tab(s), Oral, Daily, X 5 day(s), # 10 tab(s), Refills(s) 0, Pharmacy: [facility]/pharmacy #[id number], 155, cm, 12/19/23 12:54:00 EDT, Height/Length [...] LT 4V*on 06-11-2024 XR knee LT 4V* [place] [address] XRay Report Signed Patient: Prudencio Jaramillo MR#: [id number] : 1995 Acct:[id number] Age/Sex: 28 / F ADM Date: 06/11/24 Loc: [id number] Room: Type: [facility] Attending Dr: Jessie Alvarado APRN Copies to: [...] Burnett Jr., D.O.06/11/2024 11:05 AM Dictation Location: [place] [address] Transcribed By: [facility] 06/11/24 1105 Dictated By: Tk Burnett Jr, DO 06/11/24 1103 Signed By: 06/11/24 1105 Normal [facility] Alanine aminotransferase [En zymatic activity/volume] in Serum or PlasmaOrdered By: Elizabeth Cruz on 12-28-2023 ALT [Catalytic activity/Vol] 19 U/L Normal 7-52 [facility] Comment on above: Performed By: #### T SH3, LIPID, CBC, CMP wRFX A1C #### [facility] [address] [place] [id number] [place] Albumin [Mass/volume] in Ser um or Plasma by Bromocresol green (BCG) dye binding methoOrdered By: Elizabeth Cruz on 12-28-2023 Albumin BCG dye [Mass/Vol] 4.2 g/dL 3.5-5.7 [facility] Alkaline phosphatase [Enzyma tic activity/volume] in Serum or PlasmaOrdered By: Elizabeth Cruz on 12-28-2023 ALP [Catalytic activity/Vol] 75 U/L Normal 34-104 [facility] Comment on above: Performed By: #### T SH3, LIPID, CBC, CMP wRFX A1C #### [facility] [address] [place] [id number] [place] Aspartate aminotransferase [ Enzymatic activity/volume] in Serum or PlasmaOrdered By: Elizabeth Cruz on 12-28-2023 AST [Catalytic activity/Vol] 12 U/L Low 13-39 [facility] Comment on above: Performed By: #### T SH3, LIPID, CBC, CMP wRFX A1C #### [address] Automated basophil %Ordered By: Elizabeth Cruz on 12-28-2023 Basophils/100 WBC (Bld) 1.1 % Normal . [facility] Comment on above: Performed By: #### T SH3, LIPID, CBC, CMP wRFX A1C #### [address] Automated basophil countOrde red By: Elizabeth Cruz on 12-28-2023 Basophils (Bld) [#/Vol] 0.1 10*3/uL Normal 0.0-0.2 [facility] Comment on above: Result Comment: PERF ORMED BY: [place] [address] PATHOLOGIST GAS ENGINE PERFORMANCE ENGINEER TERESO CANDELARIA M.D. Performed By: #### T SH3, LIPID, CBC, CMP wRFX A1C #### [address] Automated blood monocyte cou ntOrdered By: Elizabeth Cruz on 12-28-2023 Monocytes (Bld) [#/Vol] 0.6 10*3/uL Normal 0.0-0.8 [facility] Comment on above: Performed By: #### T SH3, LIPID, CBC, CMP wRFX A1C #### [address] Automated eosinophil %Ordere d By: Elizabeth Cruz on 12-28-2023 Eosinophils/100 WBC (Bld) 2.3 % Normal . [facility] Comment on above: Performed By: #### T SH3, LIPID, CBC, CMP wRFX A1C #### [address] Automated eosinophil countOr dered By: Elizabeth Cruz on 12-28-2023 Eosinophils (Bld) [#/Vol] 0.2 10*3/uL Normal 0.0-0.45 [facility] Comment on above: Performed By: #### T SH3, LIPID, CBC, CMP wRFX A1C #### [address] Automated monocyte %Ordered By: Elizabeth Cruz on 12-28-2023 Monocytes/100 WBC (Bld) 5.9 % Normal . [facility] Comment on above: Performed By: #### T SH3, LIPID, CBC, CMP wRFX A1C #### [address] Automated neutrophil %Ordere d By: Elizabeth Cruz on 12-28-2023 Neutrophils/100 WBC (Bld) 60.3 % Normal . [facility] Comment on above: Performed By: #### T SH3, LIPID, CBC, CMP wRFX A1C #### [address] Bilirubin.total [Mass/volume ] in Serum or PlasmaOrdered By: Elizabeth Cruz on 12-28-2023 Bilirubin [Mass/Vol] 0.4 mg/dL Normal 0.3-1.0 [facility] Comment on above: Performed By: #### T SH3, LIPID, CBC, CMP wRFX A1C #### [address] CMP with reflex to A1Con Albumin [Mass/Vol] 4.2 g/dL Normal 3.5-5.7 [facility] Comment on above: Performed By: #### T SH3, LIPID, CBC, CMP wRFX A1C #### [place] [address] [place] GFR/1.73 sq M.predicted MDRD (S/P/Bld) [Vol rate/Area] mL/min/{1.73_m2} Normal [facility] Comment on above: Performed By: #### T SH3, LIPID, CBC, CMP wRFX A1C #### [address] [place] [address] [place] Calcium [Mass/volume] in Ser um or PlasmaOrdered By: Elizabeth Cruz on 12-28-2023 Calcium [Mass/Vol] 9.4 mg/dL Normal 8.6-10.3 [facility] Comment on above: Performed By: #### T SH3, LIPID, CBC, CMP wRFX A1C #### [facility] [address] [place] [address] [place] Carbon dioxide, total [Moles /volume] in Serum or PlasmaOrdered By: Elizabeth Cruz on 12-28-2023 CO2 [Moles/Vol] 27.3 mmol/L Normal 21.0-31.0 [facility] Comment on above: Performed By: #### T SH3, LIPID, CBC, CMP wRFX A1C #### [facility] [address] [place] [address] [place] Chloride [Moles/volume] in S mar or PlasmaOrdered By: Elizabeth Cruz on 12-28-2023 Chloride [Moles/Vol] 107 mmol/L Normal 98-107 [facility] Comment on above: Performed By: #### T SH3, LIPID, CBC, CMP wRFX A1C #### [facility] [address] [place] [address] [place] Cholesterol [Mass/volume] in Serum or PlasmaOrdered By: Elizabeth Cruz on 12-28-2023 Cholesterol [Mass/Vol] 196 mg/dL Normal 140-200 [facility] Comment on above: Chol less than 200 m g/dl low riskChol 201-239 mg/dl borderline riskChol 240 mg/dl and greater high risk Result Comment: Chol less than 200 mg/dl low risk Chol 201-239 mg/dl borderline risk Chol 240 mg/dl and greater high risk Performed By: #### T SH3, LIPID, CBC, CMP wRFX A1C #### [facility] [address] [place], [place] [id number] [place] Cholesterol in LDL Calc [Mas s/Vol]Ordered By: Elizabeth Curz on 12-28-2023 Cholesterol in LDL [Mass/Vol] 113 mg/dL 0-100 [facility] Comment on above: LDL ATP III CLASSIFI CATIONLDL less than 100 mg/dL OptimalLDL 100-129 mg/dL Near or above optimalLDL 130-159 mg/dL Borderline highLDL 160-189 mg/dL HighLDL greater than 189 mg/dL Very high Cholesterol in VLDL Calc [Ma ss/Vol]Ordered By: Elizabeth Cruz on 12-28-2023 Cholesterol in VLDL [Mass/Vol] 39 mg/dL [facility] Complete Blood Count Auto Di ffon 12-28-2023 Mean Corpuscular HGB Conc 31.6 g/dL Low 32.0-35.0 [facility] Comment on above: Performed By: #### T SH3, LIPID, CBC, CMP wRFX A1C #### [facility] [address] [place] [address] NRBC% 0.0 /100{WBC} Normal 0-0.5 [facility] Comment on above: Performed By: #### T SH3, LIPID, CBC, CMP wRFX A1C #### [facility] [address] [place] [address] Creatinine [Mass/volume] in Serum or PlasmaOrdered By: Elizabeth Cruz on 12-28-2023 Creatinine [Mass/Vol] 0.58 mg/dL Low 0.60-1.20 [facility] Comment on above: Performed By: #### T SH3, LIPID, CBC, CMP wRFX A1C #### [facility] [address] [place] [address] Erythrocyte distribution wid th [Ratio] by Automated countOrdered By: Elizabeth Cruz on 12-28-2023 Erythrocyte distribution width (RBC) [Ratio] 14.4 % Normal 11.9-15.3 [facility] Comment on above: Performed By: #### T SH3, LIPID, CBC, CMP wRFX A1C #### [facility] [address] [place] [address] [place] Erythrocytes [#/volume] in B lood by Automated countOrdered By: Elizabeth Cruz on 12-28-2023 RBC (Bld) [#/Vol] 5.22 10*6/uL High 3.60-5.00 [facility] Comment on above: Performed By: #### T SH3, LIPID, CBC, CMP wRFX A1C #### [facility] [address] [place] [address] Glucose [Mass/volume] in Ser um or PlasmaOrdered By: Elizabeth Cruz on 12-28-2023 Glucose [Mass/Vol] 85 mg/dL Normal 70-100 [facility] Comment on above: Performed By: #### T SH3, LIPID, CBC, CMP wRFX A1C #### [address] Hematocrit [Volume Fraction] of Blood by Automated countOrdered By: Elizabeth Cruz on 12-28-2023 Hematocrit (Bld) [Volume fraction] 42.5 % Normal 34.0-46.4 [facility] Comment on above: Performed By: #### T SH3, LIPID, CBC, CMP wRFX A1C #### [address] Hemoglobin [Mass/volume] in BloodOrdered By: Elizabeth Cruz on 12-28-2023 Hemoglobin (Bld) [Mass/Vol] 13.4 g/dL Normal 11.8-15.4 [facility] Comment on above: Performed By: #### T SH3, LIPID, CBC, CMP wRFX A1C #### [address] Leukocytes [#/volume] correc carie for nucleated erythrocytes in Blood by Automated counOrdered By: Elizabeth Cruz on 12-28-2023 WBC corrected for nucl RBC Auto (Bld) [#/Vol] 9.6 10*3/uL 3.8-11.6 [facility] Leukocytes [#/volume] in Blo od by Automated countOrdered By: Elizabeth Cruz on 12-28-2023 WBC (Bld) [#/Vol] 9.6 10*3/uL Normal 3.8-11.6 [facility] Comment on above: Performed By: #### T SH3, LIPID, CBC, CMP wRFX A1C #### [address] Lipid Panelon 12-28-2023 LDL Cholesterol,Calculated 113 mg/dL High 0-100 [facility] Comment on above: Result Comment: LDL ATP III CLASSIFICATION LDL less than 100 mg/dL Optimal LDL 100-129 mg/dL Near or above optimal LDL 130-159 mg/dL Borderline high LDL 160-189 mg/dL High LDL greater than 189 mg/dL Very high Performed By: #### T SH3, LIPID, CBC, CMP wRFX A1C #### [address] Triglyceride w/Reflex 197 mg/dL High 0-149 [facility] Comment on above: Result Comment: TRIG ATP III CLASSIFICATION TRIG less than 150 mg/dL Normal TRIG 150-199 mg/dL Borderline high TRIG 200-500 mg/dL High TRIG greater than 500 mg/dL Very high Standard traceable to the Center for Disease Conrtrol and Prevention (CDC) test method. Performed By: #### T SH3, LIPID, CBC, CMP wRFX A1C #### [address] VLDL CHOLESTEROL 39 mg/dL Normal [facility] Comment on above: Performed By: #### T SH3, LIPID, CBC, CMP wRFX A1C #### [address] Lymphocytes [#/volume] in Bl ood by Automated countOrdered By: Elizabeth Cruz on 12-28-2023 Lymphocytes (Bld) [#/Vol] 2.9 10*3/uL Normal 1.00-4.8 [facility] Comment on above: Performed By: #### T SH3, LIPID, CBC, CMP wRFX A1C #### [place] [address] [place] Lymphocytes/100 leukocytes i n Blood by Automated countOrdered By: Elizabeth Cruz on 12-28-2023 Lymphocytes/100 WBC (Bld) 30.4 % Normal . [facility] Comment on above: Performed By: #### T SH3, LIPID, CBC, CMP wRFX A1C #### [place] [address] [place] MCH [Entitic mass] by Automa carie countOrdered By: Elizabeth Cruz on 12-28-2023 MCH (RBC) [Entitic mass] 25.8 pg Normal 24.7-34.3 [facility] Comment on above: Performed By: #### T SH3, LIPID, CBC, CMP wRFX A1C #### [facility] [address] [place] [address] MCHC Auto (RBC) [Mass/Vol]Or dered By: Elizabeth Cruz on 12-28-2023 MCHC (RBC) [Mass/Vol] 31.6 g/dL 32.0-35.0 [facility] MCV [Entitic volume] by Auto mated countOrdered By: Elizabeth Cruz on 12-28-2023 MCV (RBC) [Entitic vol] 81.5 fL Normal 80-100 [facility] Comment on above: Performed By: #### T SH3, LIPID, CBC, CMP wRFX A1C #### [facility] [address] [place] [address] Neutrophils [#/volume] in Bl ood by Automated countOrdered By: Elizabeth Cruz on 12-28-2023 Neutrophils (Bld) [#/Vol] 5.8 10*3/uL Normal 1.8-7.7 [facility] Comment on above: Performed By: #### T SH3, LIPID, CBC, CMP wRFX A1C #### [address] No Panel InformationOrdered By: Elizabeth Cruz on 12-28-2023 Estimated GFR (CKD-EPI) > 60.0 mL/Min [facility] Creatinine Clearance (Chem N/A [facility] Nucleated erythrocytes [Pres ence] in Blood by Automated countOrdered By: Elizabeth Cruz on 12-28-2023 Nucleated RBC Auto Ql (Bld) 0.0 /100{WBC} 0-0.5 [facility] Platelet mean volume [Entiti c volume] in Blood by Automated countOrdered By: Elizabeth Cruz on 12-28-2023 Platelet mean volume (Bld) [Entitic vol] 8.2 fL Normal 6.3-10.7 [facility] Comment on above: Performed By: #### T SH3, LIPID, CBC, CMP wRFX A1C #### [facility] [address] [place] [address] Platelets [#/volume] in Bloo d by Automated countOrdered By: Elizabeth Cruz on 12-28-2023 Platelets (Bld) [#/Vol] 310 10*3/uL Normal 150-450 [facility] Comment on above: Performed By: #### T SH3, LIPID, CBC, CMP wRFX A1C #### [address] Potassium [Moles/volume] in Serum or PlasmaOrdered By: Elizabeth Cruz on 12-28-2023 Potassium [Moles/Vol] 4.3 mmol/L Normal 3.5-5.1 [facility] Comment on above: Performed By: #### T SH3, LIPID, CBC, CMP wRFX A1C #### [address] Protein [Mass/volume] in Ser um or PlasmaOrdered By: Elizabeth Cruz on 12-28-2023 Protein [Mass/Vol] 7.1 g/dL Normal 6.4-8.9 [facility] Comment on above: Performed By: #### T SH3, LIPID, CBC, CMP wRFX A1C #### [address] Serum globulin measurement b y calculation (mass/volume)Ordered By: Elizabeth Cruz on 12-28-2023 Globulin (S) [Mass/Vol] 2.9 g/dL [facility] Comment on above: Performed By: #### T SH3, LIPID, CBC, CMP wRFX A1C #### [address] Serum or plasma albumin/glob ulin mass ratioOrdered By: Elizabeth Cruz on 12-28-2023 Albumin/Globulin [Mass ratio] 1.4 {ratio} [facility] Comment on above: Performed By: #### T SH3, LIPID, CBC, CMP wRFX A1C #### [facility] [address] Serum or plasma anion gap de terminationOrdered By: Elizabeth Cruz on 12-28-2023 Anion gap [Moles/Vol] 10.0 mmol/L Normal 6.0-15.0 [facility] Comment on above: Performed By: #### T SH3, LIPID, CBC, CMP wRFX A1C #### [facility] [address] Serum or plasma high density lipoprotein (HDL) cholesterol measurementOrdered By: Elizabeth Cruz on 12-28-2023 Cholesterol in HDL [Mass/Vol] 44 mg/dL Normal 23-92 [facility] Comment on above: HDL CHOL ATP-III CLA SSIFICATION Cardiovascular RiskHDL > or equal to 60 mg/dL LOWHDL < 40 mg/dL HIGH Result Comment: HDL CHOL ATP-III CLASSIFICATION Cardiovascular Risk HDL > or equal to 60 mg/dL LOW HDL < 40 mg/dL HIGH Performed By: #### T SH3, LIPID, CBC, CMP wRFX A1C #### [address] Serum or plasma total choles terol/high density lipoprotein (HDL) cholesterol mass ratOrdered By: Elizabeth Cruz on 12-28-2023 Cholesterol.total/Chol esterol in HDL [Mass ratio] 4.5 {ratio} Normal <5.0 [facility] Comment on above: Performed By: #### T SH3, LIPID, CBC, CMP wRFX A1C #### [address] Sodium [Moles/volume] in Ser um or PlasmaOrdered By: Elizabeth Cruz on 12-28-2023 Sodium [Moles/Vol] 140 mmol/L Normal 136-145 [facility] Comment on above: Performed By: #### T SH3, LIPID, CBC, CMP wRFX A1C #### [address] Thyrotropin [Units/volume] i n Serum or PlasmaOrdered By: Elizabeth Cruz on 12-28-2023 TSH Qn 1.14 m[IU]/L Normal 0.45-5.33 [facility] Comment on above: Result Comment: PERF ORMED BY: [place] [address] PATHOLOGIST GAS ENGINE PERFORMANCE ENGINEER TERESO CANDELARIA M.D. Performed By: #### T SH3, LIPID, CBC, CMP wRFX A1C #### [facility] [address] Triglyceride [Mass/volume] i n Serum or PlasmaOrdered By: Elizabeth Cruz on 12-28-2023 Triglyceride [Mass/Vol] 197 mg/dL 0-149 [facility] Comment on above: TRIG ATP III CLASSIF ICATIONTRIG less than 150 mg/dL NormalTRIG 150-199 mg/dL Borderline highTRIG 200-500 mg/dL High TRIG greater than 500 mg/dL Very highStandard traceable to the Center for Disease Conrtrol and Prevention (CDC) test method. Urea nitrogen [Mass/volume] in Serum or PlasmaOrdered By: Elizabeth Cruz on 12-28-2023 Urea nitrogen [Mass/Vol] 12 mg/dL Normal 7-25 [facility] Comment on above: Performed By: #### T SH3, LIPID, CBC, CMP wRFX A1C #### [address] Grp A Strp PCRon 12-20-2023 Grp A Strp Intrl Ctrl Pass Normal [facility] Comment on above: Performed By: #### 1 [id number] ####[facility] [address] [place] [address] S. pyogenes DNA HILDA+probe Ql (Throat) Negative Normal [facility] Comment on above: Result Comment: Test ing performed using DNA amplification. Performed By: #### 1 [id number] ####[facility] [address] [place] [address] Family Medicine Office/Clini c Noteon 12-19-2023 Family [...] agree with above documented HPI by medical office assistant. Portions of this record may have been created with voice recognition artificial intelligence software, specifically [employer] and or [employer]. Substitutions may have occurred due to the inherent limitations of voice recognition and artificial intelligence software. Patient is a 28-year-old female presents to [facility] care, for sore throat, sinus congestion, right ear pain. Patient states symptoms started less than a week ago, had fever, chills, nausea, dizziness, headaches, states she states those symptoms improved with the exception of the sore throat and the right ear pain, states she has no left ear pain, patient states she been taking vprb-grj-vohkqsq Tylenol for fevers and pain, has not taken any today, states she has been trying to take xcbs-ely-iviaoij Mucinex relief without any improvement, states she [...] fever, states she has not taken any dgio-ftr-amgmhrq ibuprofen or Tylenol today, states she went [...] day or 2. 28-year-old female presented to [facility] care, for acute pharyngitis, [employer]eller media, sinus congestion, symptoms started about a week ago, worsening symptoms as of last night, patient did appear ill but not septic, no difficulty swallowing, respiratory distress, cough, chest pain, shortness of breath, abdominal pain. Patient was given a prescription for Zithromax and prednisone, has no history of diabetes, instructed to take guiz-lew-yznpcyv ibuprofen and Tylenol every 8 hours for fever, body aches, and pain. Drink plenty water stay hydrated. Declined a work excuse note. Follow-up with primary care provider as needed. 1. Acute pharyngitis (J02.9: Acute pharyngitis, unspecified) See above Ordered: azithromycin, 500 mg = 1 tab(s), Oral, Daily, X 5 day(s), # 5 tab(s), Refills(s) 0, Pharmacy: [facility]/pharmacy #[id number], 155, cm, 12/19/23 12:54:00 EDT, Height/Length Dosing, 127.3, kg, 12/19/23 12:54:00 EDT, Weight Dosing predniSONE, 40 mg = 2 tab(s), Oral, Daily, X 5 day(s), # 10 tab(s), Refills(s) 0, Pharmacy: [facility]/pharmacy #[id number], 155, cm, 12/19/23 12:54:00 EDT, Height/Length Dosing, 127.3, kg, 12/19/23 12:54:00 EDT, Weight Dosing Rapid Strep POC 14799 2. Ri (more content not included)... Normal [facility] Comment on above: Result Comment: Elec [...] Follow these instructions at home: ? Take eshv-fvh-vmaqvkd and prescription medicines only as told by [...] provider. Document Revised: 01/02/2022 Document Reviewed: 01/02/2022 [employer] Patient Education ? 2022 [employer] Infectious Disease Pharyngitis Pharyngitis is a [...] these instructions at home: Medicines ? Take navr-omr-rjqxhja and prescription medicines only as told by your doctor. ? If you were prescribed an antibiotic medicine, take it as told by your doctor. Do not stop taking the antibiotic even if you start to feel better. ? Use throat lozenges or (more content not included)... Normal [facility] [place] CHOLANGIOGRAM ORon 2022 [place] CHOLANGIOGRAM [...] Kirsten Shelton DO 05/28/23 Final result Normal [facility] OPERATIVE REPORTon 3 OPERATIVE REPORT [place] [id number] OPERATIVE REPORT PATIENT NAME: PRUDENCIO JARAMILLO : 1995 MED REC NO: [id number] ROOM: ACCOUNT NO: [id number] ADMIT DATE: 05/28/2023 PROVIDER: Elsa Scott MD DATE OF PROCEDURE: 05/28/2023 PREOPERATIVE DIAGNOSIS: Awnkm-aq-jnyuwvs cholecystitis. PREOPERATIVE DIAGNOSIS: Jroyj-rw-msuaqsp cholecystitis. PROCEDURES PERFORMED: 1. Laparoscopic cholecystectomy. 2. Intraoperative cholangiogram. SURGEON: Elsa Scott MD WOOD COATER: Ms. Castro. ANESTHESIA: 1. General endotracheal anesthesia. 2. Bilateral TAP block. ESTIMATED BLOOD LOSS: 25 mL. SPECIMENS: Gallbladder. COMPLICATIONS: None. INDICATIONS: This is a 27-year-old female with clinical history, physical exam, and imaging consistent with yjwwf-fu-qmrejqa cholecystitis secondary to gallstones. Risks and benefits [...] postop monitoring. ELSA SCOTT MD [id number] Doc#: [id number] CC: Normal [facility] Surgical Specimenon 05-28-20 Surgical Specimen [facility] [address] [place] [address] FINAL SURGICAL PATHOLOGY REPORT Patient Name: PRUDENCIO JARAMILLO Accession No: [id number] Age Sex: 1995 Location: [facility] Account No: [id number] Collected: 05/28/2023 Med Rec No: [id number] Received: 05/29/2023 Attend Phys: ELSA SCOTT Completed: [...] the gallbladder is 0.2 cm in thickness. Fertilizing Machine Operator sections are submitted in three cassettes. The resection margin is in cassette 1. JOSE/SHAYE CPT: 18474 X1 J DENYS DAVIS M.D. 05/30/2023 Electronically signed out by Page 1 of 1 Invalid Interpretation Code [facility] Comment on above: Performed By: #### S UR #### [facility] [address] [place] [address] CBC W Auto Differential pane l (Bld)on 05-18-2023 Basophils (Bld) [#/Vol] 0.1 10*3/uL 0.0 - 0.2 K/uL [facility] Basophils/100 WBC (Bld) 0.6 % [facility] Eosinophils (Bld) [#/Vol] 0.2 10*3/uL 0.0 - 0.7 K/uL [facility] Eosinophils/100 WBC (Bld) 1.9 % [facility] Erythrocyte distribution width (RBC) [Ratio] 14.7 % High 11.5 - 14.5 % [facility] Hematocrit (Bld) [Volume fraction] 37.6 % 37.0 - 47.0 % [facility] Hemoglobin (Bld) [Mass/Vol] 12.2 g/dL 12.0 - 16.0 g/dL [facility] Interpretation and review of laboratory results Abnormal [facility] Lymphocytes (Bld) [#/Vol] 3.2 10*3/uL 1.0 - 4.8 K/uL [facility] Lymphocytes/100 WBC (Bld) 26.4 % [facility] MCH (RBC) [Entitic mass] 26.4 pg Low 27.0 - 31.3 pg [facility] MCHC (RBC) [Mass/Vol] 32.4 % Low 33.0 - 37.0 % [facility] MCV (RBC) [Entitic vol] 81.4 fL 79.4 - 94.8 fL [facility] Monocytes (Bld) [#/Vol] 0.8 10*3/uL 0.2 - 0.8 K/uL [facility] Monocytes/100 WBC (Bld) 6.5 % [facility] Neutrophils (Bld) [#/Vol] 7.7 10*3/uL High 1.4 - 6.5 K/uL [facility] Platelets (Bld) [#/Vol] 278 10*3/uL 130 - 400 K/uL [facility] RBC (Bld) [#/Vol] 4.62 10*6/uL [facility] Segmented neutrophils/100 WBC (Bld) 64.6 % [facility] WBC (Bld) [#/Vol] 12.0 10*3/uL High 4.8 - 10.8 K/uL [facility] CBC With Platelet and Differ entialon 05-18-2023 Basophils (Bld) [#/Vol] 0.1 10*3/uL Normal 0.0-0.2 [facility] Comment on above: Performed By: #### C BCWD #### [facility] [address] [place] [address] Basophils/100 WBC (Bld) 0.6 % Normal [facility] Comment on above: Performed By: #### C BCWD #### [facility] [address] [place] [address] Eosinophils (Bld) [#/Vol] 0.2 10*3/uL Normal 0.0-0.7 [facility] Comment on above: Performed By: #### C BCWD #### [facility] [address] [place] [address] Eosinophils/100 WBC (Bld) 1.9 % Normal [facility] Comment on above: Performed By: #### C BCWD #### [facility] [address] [place] [address] Erythrocyte distribution width (RBC) [Ratio] 14.7 % Critically high 11.5-14.5 [facility] Comment on above: Performed By: #### C BCWD #### [facility] [address] [place] [address] Hematocrit (Bld) [Volume fraction] 37.6 % Normal 37.0-47.0 [facility] Comment on above: Performed By: #### C BCWD #### [facility] [address] [place] [address] Hemoglobin (Bld) [Mass/Vol] 12.2 g/dL Normal 12.0-16.0 [facility] Comment on above: Performed By: #### C BCWD #### [facility] [address] [place] [address] Lymphocytes (Bld) [#/Vol] 3.2 10*3/uL Normal 1.0-4.8 [facility] Comment on above: Performed By: #### C BCWD #### [facility] [address] [place] [address] Lymphocytes/100 WBC (Bld) 26.4 % Normal [facility] Comment on above: Performed By: #### C BCWD #### [facility] [address] [place] [address] MCH (RBC) [Entitic mass] 26.4 pg Low 27.0-31.3 [facility] Comment on above: Performed By: #### C BCWD #### [facility] [address] [place] [address] MCHC 32.4 % Low 33.0-37.0 [facility] Comment on above: Performed By: #### C BCWD #### [facility] [address] [place] [address] MCV (RBC) [Entitic vol] 81.4 fL Normal 79.4-94.8 [facility] Comment on above: Performed By: #### C BCWD #### [facility] [address] [place] [address] Monocytes (Bld) [#/Vol] 0.8 10*3/uL Normal 0.2-0.8 [facility] Comment on above: Performed By: #### C BCWD #### [facility] [address] [place] [address] Monocytes/100 WBC (Bld) 6.5 % Normal [facility] Comment on above: Performed By: #### C BCWD #### [facility] [address] [place] [address] Neutrophils (Bld) [#/Vol] 7.7 10*3/uL Critically high 1.4-6.5 [facility] Comment on above: Performed By: #### C BCWD #### [facility] [address] [place] [address] Neutrophils/100 WBC (Bld) 64.6 % Normal [facility] Comment on above: Performed By: #### C BCWD #### [facility] [address] [place] [address] Platelets (Bld) [#/Vol] 278 10*3/uL Normal 130-400 [facility] Comment on above: Performed By: #### C BCWD #### [facility] [address] [place] [address] RBC (Bld) [#/Vol] 4.62 10*6/uL Normal 4.20-5.40 [facility] Comment on above: Performed By: #### C BCWD #### [facility] [address] [place] [address] WBC (Bld) [#/Vol] 12.0 10*3/uL Critically high 4.8-10.8 [facility] Comment on above: Performed By: #### C BCWD #### [facility] [address] [place] [address] CT ABDOMEN PELVIS W IV CONTR Josleo 05-18-2023 CT ABDOMEN PELVIS W IV CONTRAST [...] Vicky Nieto MD 05/19/23 Final result Normal [facility] Comprehensive Metabolic Pane anshu 05-18-2023 Albumin [Mass/Vol] 3.9 g/dL Normal 3.5-4.6 [facility] Comment on above: Performed By: #### C MP #### [facility] [address] [facility] [address] [phone] ALP [Catalytic activity/Vol] 91 U/L Normal 40-130 [facility] Comment on above: Performed By: #### C MP #### [facility] [address] [place] [address] ALT [Catalytic activity/Vol] 15 U/L Normal 0-33 [facility] Comment on above: Performed By: #### C MP #### [facility] [address] [place] [address] Anion gap [Moles/Vol] 12 mmol/L Normal 9-15 [facility] Comment on above: Performed By: #### C MP #### [facility] [address] [place] [address] AST [Catalytic activity/Vol] 27 U/L Normal 0-35 [facility] Comment on above: Performed By: #### C MP #### [facility] [address] [place] [address] Bilirubin [Mass/Vol] mg/dL Normal 0.2-0.7 [facility] Comment on above: Performed By: #### C MP #### [facility] [address] [place] [address] Calcium [Mass/Vol] 9.4 mg/dL Normal 8.5-9.9 [facility] Comment on above: Performed By: #### C MP #### [facility] [address] [place] [address] Chloride [Moles/Vol] 104 mmol/L Normal 95-107 [facility] Comment on above: Performed By: #### C MP #### [facility] [address] [place] [address] CO2 [Moles/Vol] 24 mmol/L Normal 20-31 [facility] Comment on above: Performed By: #### C MP #### [facility] [address] [place] [address] Creatinine [Mass/Vol] 0.56 mg/dL Normal 0.50-0.90 [facility] Comment on above: Performed By: #### C MP #### [facility] [address] [place] [address] GFR >60.0 Normal >60 [facility] Comment on above: Result Comment: Sudarshan solitarioc [...] secretion. Performed By: #### C MP #### [facility] [address] [place] [address] Globulin (S) [Mass/Vol] 3.2 g/dL Normal 2.3-3.5 [facility] Comment on above: Performed By: #### C MP #### [facility] [address] [place] [address] Glucose [Mass/Vol] 89 mg/dL Normal 70-99 [facility] Comment on above: Performed By: #### C MP #### [facility] [address] [place] [address] Potassium [Moles/Vol] 3.8 mmol/L Normal 3.4-4.9 [facility] Comment on above: Performed By: #### C MP #### [facility] [address] [place] [address] Protein [Mass/Vol] 7.1 g/dL Normal 6.3-8.0 [facility] Comment on above: Performed By: #### C MP #### [facility] [address] [place] [address] Sodium [Moles/Vol] 140 mmol/L Normal 135-144 [facility] Comment on above: Performed By: #### C MP #### [facility] [address] [place] [address] Urea nitrogen [Mass/Vol] 15 mg/dL Normal 6-20 [facility] Comment on above: Performed By: #### C MP #### [facility] [address] [place] [id number] [phone] Comprehensive metabolic 2000 panelon 05-18-2023 Albumin [Mass/Vol] 3.9 g/dL 3.5 - 4.6 g/dL [facility] ALP [Catalytic activity/Vol] 91 U/L 40 - 130 U/L [facility] ALT [Catalytic activity/Vol] 15 U/L 0 - 33 U/L [facility] Anion gap [Moles/Vol] 12 mmol/L [facility] AST [Catalytic activity/Vol] 27 U/L 0 - 35 U/L [facility] Bilirubin [Mass/Vol] mg/dL 0.2 - 0 .7 mg/dL [facility] Calcium [Mass/Vol] 9.4 mg/dL 8.5 - 9.9 mg/dL [facility] Chloride [Moles/Vol] 104 mmol/L [facility] CO2 [Moles/Vol] 24 mmol/L [facility] Creatinine [Mass/Vol] 0.56 mg/dL 0.50 - 0.90 mg/dL [facility] GFR/1.73 sq M.predicted among non-blacks MDRD (S/P/Bld) [Vol rate/Area] 60 - PINF [facility] Comment on above: Pediatric calculator link [...] [Mass/Vol] 3.2 g/dL 2.3 - 3.5 g/dL [facility] Glucose [Mass/Vol] 89 mg/dL 70 - 99 mg/dL [facility] Potassium [Moles/Vol] 3.8 mmol/L [facility] Protein [Mass/Vol] 7.1 g/dL 6.3 - 8.0 g/dL [facility] Sodium [Moles/Vol] 140 mmol/L [facility] Urea nitrogen [Mass/Vol] 15 mg/dL 6 - 20 mg/dL [facility] Lipaseon 05-18-2023 Lipase [Catalytic activity/Vol] 23 U/L Normal 12-95 [facility] Comment on above: Performed By: #### L IPAS #### [facility] [address] [place] [address] Lipase [Catalytic activity/Vol] 23 U/L 12 - 95 U/L [facility] No Panel Informationon 05-18 [facility] POCT Creatinineon 05-18-2023 Interpretation and review of laboratory results Normal [facility] POC CREATININE WHOLE BLOOD 0.6 [facility] POCT Venouson 05-18-2023 Creatinine [Mass/Vol] 0.6 mg/dL Normal 0.6-1.2 [facility] Comment on above: Performed By: #### P PORTER #### [facility] [address] [place] [id number] GFR >60 Normal >60 [facility] Comment on above: Result Comment: Sudarshan atric [...] secretion. Performed By: #### P PORTER #### [facility] [address] [place] [id number] POC Performed on SEE BELOW Normal [facility] Comment on above: Result Comment: Perf ormed on POC Performed By: #### P PORTER #### [facility] [address] [place] [address] POC Sample Type PORTER Normal [facility] Comment on above: Performed By: #### P PORTER #### [facility] [address] [place] [address] Troponinon 05-18-2023 Troponin I.cardiac [Mass/Vol] ng/mL Normal 0.000-0.01 [facility] Comment on above: Result Comment: Meth odology by Troponin T. Performed By: #### T ROP #### [facility] [address] [place] [address] Troponin T.cardiac [Mass/Vol] ng/mL 0.000 - 0.010 ng/mL [facility] Comment on above: Methodology by Tropo brooke T. Troponin T.cardiac [Mass/Vol ]on 05-18-2023 [facility] US ABDOMEN LIMITEDon 023 US ABDOMEN [...] Kirsten Pardo MD 05/18/23 Final result Normal [facility] Cholelithiasis. No gallbladder wall thickening or pericholecystic fluid. Mildly dilated common duct at 8.1 mm. [facility] RADIOLOGY EXAMINATION: RIGHT UPPER QUADRANT ULTRASOUND 05/18/2023 [...] No evidence of right upper quadrant ascites. [facility] RADIOLOGY Kirsten Pardo MD - 05/18/2023 EXAMINATION: [...] Mildly dilated common duct at 8.1 mm. [facility] Radiology Study observation (narrative) [facility] US ABDOMEN LIMITEDOrdered By : Kirsten Pardo on 05-18-2023 [facility] Work Phone: Consent for Treatmenton -0 Consent for Treatment [id number]: 127 Normal [facility] Discharge Instructionson Discharge Instructions [id number] :127 Normal [facility] ED Clinical Summaryon 2022 ED Clinical Summary (Inserted Image. Sophie ble to display) [address] [address] ED Clinical Summary Person Information Name: PRUDENCIO JARAMILLO/[facility] Age: 27 Years : 1995 Sex: Female Language: Macanese PCP: Carol Gutierrez CNP Marital Status: Visit [...] 04/14/2023 15:19:47 04/14/2023 15:19:47 04/14/2023 15:19:47 ADDRESS: [address] [place] [phone] PHYS DOC NOTES: MEDICAL INFORMATION: Prescriptions Given: New Medications [id number], [address] [place], [place] [id number], [phone] naproxen (naproxen 500 mg Tab) 1 Tablets [...] of Injuries Follow up: With: Address: When: [facility] [address], [facility] [place] [address] Business (1) In 3 days 04/17/2023 With: Address: When: Carol Gutierrez [address] [place] [address], [facility], [address] [place] [address] Business (1) In 3 days DIAGNOSIS: Wrist sprain Normal [facility] ED Note-Physicianon 04-14-20 ED Note-Physician Basic [...] Oral, BID Follow-up With When Contact Information CloudJay In 3 days 04/17/[address] [facility] [place] [address] [place] [address]- Business (1) Additional Instructions: Carol Gutierrez In 3 days [address] [facility], [address] [place] [address]- Business (1) Additional Instructions: Patient Education Wrist Sprain, Adult RICE Therapy for Routine Care of Injuries Attestation Patient seen and evaluated by the physician tax accounting assistant. Attending physician was present in the emergency department and supervised care. This visit was performed by both the physician and an APC. I performed all aspects of the MDM as documented. This report was transcribed using voice recognition software. Every effort was made to ensure accuracy, however, inadvertently computerized global sales executive mistakes may be present. Appropriate healthcare PPE [...] and navic (more content not included)... Normal [facility] Comment on above: Result Comment: Elec [...] safe for you. General instructions ? Take ajws-ubm-sarxnqo and prescription medicines only as told by [...] it gets (more content not included)... Normal [facility] ED Patient Summaryon 023 ED Patient Summary (Inserted Image. Sophie ble to display) [place] [id number] Patient Discharge Instructions Person Information Name: PRUDENCIO JARAMILLO Age: 27 Years Arrival Date: 04/14/2023 13:29:48 Discharge Diagnosis: Wrist sprain Primary Care Physician: Carol Gutierrez CNP Provider Information Primary Provider: Barak Greer DO Advanced Rinkman:Anton Waldrop PA-C The exam and treatment you received in the Emergency Department were for an urgent problem and are not intended as complete care. It is important that you follow up with a doctor, nurse practitioner, or physician?s tax accounting assistant for ongoing care. If your symptoms become worse or you do not improve as expected and you are unable to reach your usual health care provider, you should return to the Emergency Department. We are available 24 hours a day. PRUDENCIO JARAMILLO has been given the following list of patient education materials, prescriptions and follow-up instructions: Follow-up Instructions: With: Address: [facility] [address], [place] [address] Business (1) In 3 days 04/17/2023 With: Address: When: Carol Gutierrez [address] [place] [address], [address] [place] [address] Business (1) In 3 days [...] opioids can be used to help relieve azixyqkg-cg-svnuhi pain and are often prescribed following a [...] and over (more content not included)... Normal [facility] Workers Comp Formson 023 Workers Comp Forms [id number] :127 Normal [facility] XR Wrist 3+ Views Lefton XR [...] = na DAP = na Normal [facility] Medicine Office/Clini c Noteon 02-16-2023 Family Medicine [...] that yesterday afternoon around 4 PM her 68-uhpnq-jxa son decided he was going to try to climb up her he states that he took the left arm and kind of twisted it almost outstretched that he decided to climb up the arm she states he got about penitentiary up when she heard and felt a [...] her children this morning. She has her 28-kqckp-ses son and a 5-month-old daughter. She has [...] pulses with brisk capillary refill bilaterally. Equal branch customer service representative strength bilaterally. No patient is able to [...] Contact Information VLADISLAV LOPEZ SHANIQUE [address] [place] [address] Additional Instructions: Patient Education BMI for Adults [...] Current, denies, (more content not included)... Normal [facility] Comment on above: Result Comment: Elec [...] numbers. This can be done either in [place] ([place] or metric measurements. Note that charts and online BMI calculators are available to help you find your BMI quickly and easily without having to do these calculations yourself. To calculate your BMI in [place] ([place] measurements: 1. Measure your weight in [...] for Disease Control and Prevention: www.cdc.gov ? [place] Heart Association: www.heart.org ? National Heart, Lung, and Blood Gem: www.nhlbi.nih.gov Summary ? Body mass index (BMI) is a number that is calculated from a person's weight and height. ? BMI may help estimate how much of a person's weight is composed of fat. BMI can help identify those who may be at higher risk for certain medical problems. ? BMI can be measured using Macanese measurements or metric measurements. ? BMI charts are used to identify whether you are underweight, normal weight, overweight, or obese. This information is not intended to replace advice given to you by your health care provider. Make sure you discuss any questions you have with your health care provider. Document Revised: 06/16/2020 Document Reviewed: 04/23/2020 [employer] Patient Education ? 2022 [employer]. Orthopedics Elastic Bandage and RICE Therapy Elastic [...] help t (more content not included)... Normal [facility] Covid-19 PCR (CVDTBH)on SARS-CoV-2 (COVID-19) RNA HILDA+probe Ql (Unsp spec) Not detected Normal NOT DETECTED [facility] Comment on above: Result Comment: This test is not yet approved or cleared by the [place] FDA. When there are no FDA-approved or cleared tests available, and other criteria are met, FDA can make tests available under an emergency access mechanism called an Emergency Use Authorization (EUA). The EUA for this test is supported by the [place] of Health and Human Service's (HHS's) declaration [...] SARS-CoV-2. Performed By: #### C BC #### [facility] [address] [place] [address] [address] Zari Butcher CBC AUTO DIFFon 11-07-2022 BASO # 0.0 103/ul Normal 0.0-0.1 [facility] [place] [facility] Comment on above: Performed By: #### C BC ####[facility] [address] [place] [address]Dr. Zari Butcher Basophils/100 WBC (Bld) 0.4 % Normal 0.2-2.0 [facility] Comment on above: Performed By: #### C BC ####[facility] [address] [place] [address]Dr. Zari Butcher EO # 0.3 103/ul Normal 0.0-0.7 [facility] Comment on above: Performed By: #### C BC ####[facility] [address] [place] [address]DrFrancesca Butcher Eosinophils/100 WBC (Bld) 2.9 % Normal 0.9-7.0 [facility] Comment on above: Performed By: #### C BC ####[facility] [address] [place] [address]DrFrancesca Butcher Erythrocyte distribution width (RBC) [Ratio] 13.9 % Normal 11.0-15.0 [facility] [place] [facility] Comment on above: Performed By: #### C BC ####[facility] [address] [place] [address]Dr. Zari Butcher Hematocrit (Bld) [Volume fraction] 38.4 % Normal 36.0-48.0 [facility] [place] [facility] Comment on above: Performed By: #### C BC ####[facility] [address] [place], [place] [address]Dr. Zari Butcher Hemoglobin (Bld) [Mass/Vol] 12.0 g/dL Normal 12.0-16.0 [facility] [place] [facility] Comment on above: Performed By: #### C BC ####[facility] [address] [place], [place] [address]Dr. Franchescacarolyn Butcher IG # 0.03 10e3/ul Normal 0.00-0.03 [facility] [place] [facility] Comment on above: Performed By: #### C BC ####[facility] [address] [place], [place] [address]Dr. Franchescacarolyn Butcher IG % 0.3 % Normal 0.0-0.5 [facility] [place] [facility] Comment on above: Performed By: #### C BC ####[facility] [address] [place], [place] [address]DrFrancesca Zari Butcher LYMPH # 2.9 103/ul Normal 1.2-3.8 [facility] Comment on above: Performed By: #### C BC ####[facility] [address] [place], [place] [address]DrFrancesca Franchescacarolyn Butcher Lymphocytes/100 WBC (Bld) 30.5 % Normal 20.5-60.0 [facility] Comment on above: Performed By: #### C BC ####[facility] [address] [place], [place] [address]DrFrancesca Franchescacarolyn Butcher MANUAL DIFF REQ NO Normal [facility] Comment on above: Performed By: #### C BC ####[facility] [address] [place], [place] [address]DrFrancesca Franchescacarolyn Butcher MCH (RBC) [Entitic mass] 25.8 pg Critically low 26.7-34.0 [facility] Comment on above: Performed By: #### C BC ####[facility] [address] [place] [address]Dr. Zari Butcher MCHC (RBC) [Mass/Vol] 31.3 g/dL Normal 29.9-35.2 [facility] Comment on above: Performed By: #### C BC ####[facility] [address] [place], [place] [address]DrFrancesca Butcher MCV (RBC) [Entitic vol] 82.4 fL Normal 81.0-99.0 [facility] Comment on above: Performed By: #### C BC ####[facility] [address] [place], [place] [address]DrFrancesca Butcher MONO # 0.5 103/ul Normal 0.3-0.8 [facility] Comment on above: Performed By: #### C BC ####[facility] [address] [place], [place] [address]Dr. Zari Butcher Monocytes/100 WBC (Bld) 5.5 % Normal 1.7-12.0 [facility] Comment on above: Performed By: #### C BC ####[facility] [address] [place], [place] [address]DrFrancesca Butcher NEUT # 5.7 103/ul Normal 1.4-6.5 [facility] Comment on above: Performed By: #### C BC ####[facility] [address] [place], [place] [address]DrFrancesca Butcher Neutrophils/100 WBC (Bld) 60.4 % Normal 43.0-75.0 [facility] Comment on above: Performed By: #### C BC ####[facility] [address] [place], [place] [address]DrFrancesca Butcher Platelet mean volume (Bld) [Entitic vol] 10.3 fL Normal 9.5-13.5 [facility] Comment on above: Performed By: #### C BC ####[facility] [address] [place], [place] [address]Dr. Zari Butcher PLT 358 103/ul Normal 150-450 [facility] Comment on above: Performed By: #### C BC ####[facility] [address] [place], [place] [address]Lg. Zari Butcher RBC 4.66 106/ul Normal 4.20-5.40 [facility] Comment on above: Performed By: #### C BC ####[facility] [address] [place], [place] [address]Gx. Zari Butcher WBC 9.5 103/ul Normal 4.0-11.0 [facility] Comment on above: Performed By: #### C BC ####[facility] [address] [place], [place] [address]ZlDr. Zari Butcher Covid-19 PCR (CVDTB)on 10-10 SARS-CoV-2 (COVID-19) RNA HILDA+probe Ql (Unsp spec) Not detected Normal NOT DETECTED [facility] Comment on above: Result Comment: This test is not yet approved or cleared by the [place] FDA. When there are no FDA-approved or cleared tests available, and other criteria are met, FDA can make tests available under an emergency access mechanism called an Emergency Use Authorization (EUA). The EUA for this test is supported by the [place] of Health and Human Service's (HHS's) declaration [...] SARS-CoV-2. Performed By: #### C VDTBH #### [facility] [address] [place], [place] [address] Dr. Zari Butcher PREG QUANT HCGon 11-07-2022 HCG QUANT <1 Normal [facility] [place] [facility] Comment on above: Performed By: #### P REGQNT ####[facility] [address] [place], [place] [address]AlDr. Zari Butcher HCG RANGE SEE BELOW Normal [facility] Comment on above: Result Comment: 5-50 0.2-1 WEEK 50-500 1-2 WEEKS 100-5,000 2-3 WEEKS 500-10,000 3-4 WEEKS 1,000-50,000 4-5 WEEKS 10,000-100,000 5-6 WEEKS 15,000-200,000 6-8 WEEKS 10,000-100,000 2-3 MONTHS Performed By: #### P REGQNT ####[facility] [address] [place] [id number]. Zari Butcher CBC AUTO DIFFon 09-21-2022 BASO # 0.0 103/ul Normal 0.0-0.1 [facility] [place] [facility] Comment on above: Performed By: #### C BC #### [facility] [address] [place] [address] [address] Zari Butcher Basophils/100 WBC (Bld) 0.3 % Normal 0.2-2.0 [facility] [place] [facility] Comment on above: Performed By: #### C BC #### [facility] [address] [place] [address] [address] Zari Butcher EO # 0.8 103/ul Critically high 0.0-0.7 [facility] Comment on above: Performed By: #### C BC #### [facility] [address] [place] [address] [address] Zari Butcher Eosinophils/100 WBC (Bld) 7.5 % Critically high 0.9-7.0 [facility] [place] [facility] Comment on above: Performed By: #### C BC #### [facility] [address] [place] [address] [address] Zari Butcher Erythrocyte distribution width (RBC) [Ratio] 14.5 % Normal 11.0-15.0 [facility] [place] [facility] Comment on above: Performed By: #### C BC #### [facility] [address] [place] [address] [address] Zari Butcher Hematocrit (Bld) [Volume fraction] 27.9 % Critically low 36.0-48.0 [facility] [place] [facility] Comment on above: Performed By: #### C BC #### [facility] [address] [place] [address] [address] Zari Butcher Hemoglobin (Bld) [Mass/Vol] 9.0 g/dL Critically low 12.0-16.0 [facility] [place] [facility] Comment on above: Performed By: #### C BC #### [facility] [address] [place] [address] Dr. Zari Butcher IG # 0.06 10e3/ul Critically high 0.00-0.03 [facility] Comment on above: Performed By: #### C BC #### [facility] [address] [place] [address] Dr. Zari Butcher IG % 0.6 % Critically high 0.0-0.5 [facility] Comment on above: Performed By: #### C BC #### [facility] [address] [place] [address] Dr. Zari Butcher LYMPH # 2.6 103/ul Normal 1.2-3.8 [facility] [place] [facility] Comment on above: Performed By: #### C BC #### [facility] [address] [place] [address] Dr. Zari Butcher Lymphocytes/100 WBC (Bld) 24.3 % Normal 20.5-60.0 [facility] [place] [facility] Comment on above: Performed By: #### C BC #### [facility] [address] [place] [address] Dr. Zari Butcher MANUAL DIFF REQ NO Normal [facility] Comment on above: Performed By: #### C BC #### [facility] [address] [place] [address] Dr. Zari Butcher MCH (RBC) [Entitic mass] 28.0 pg Normal 26.7-34.0 [facility] [place] [facility] Comment on above: Performed By: #### C BC #### [facility] [address] [place] [address] Dr. Zari Butcher MCHC (RBC) [Mass/Vol] 32.3 g/dL Normal 29.9-35.2 [facility] [place] [facility] Comment on above: Performed By: #### C BC #### [facility] [address] [place] [address] [address] Zari Butcher MCV (RBC) [Entitic vol] 86.9 fL Normal 81.0-99.0 [facility] [place] [facility] Comment on above: Performed By: #### C BC #### [facility] [address] [place] [address] [address] Zari Butcher MONO # 0.6 103/ul Normal 0.3-0.8 [facility] [place] [facility] Comment on above: Performed By: #### C BC #### [facility] [address] [place] [address] [address] Zari Butcher Monocytes/100 WBC (Bld) 5.3 % Normal 1.7-12.0 [facility] [place] [facility] Comment on above: Performed By: #### C BC #### [facility] [address] [place] [address] [address] Zari Butcher NEUT # 6.7 103/ul Critically high 1.4-6.5 [facility] Comment on above: Performed By: #### C BC #### [facility] [address] [place] [address] [address] Zari Butcher Neutrophils/100 WBC (Bld) 62.0 % Normal 43.0-75.0 [facility] Comment on above: Performed By: #### C BC #### [facility] [address] [place] [address] [address] Zari Butcher Platelet mean volume (Bld) [Entitic vol] 10.5 fL Normal 9.5-13.5 [facility] Comment on above: Performed By: #### C BC #### [facility] [address] [place] [address] [address] Zari Butcher PLT 286 103/ul Normal 150-450 [facility] Comment on above: Performed By: #### C BC #### [facility] [address] [place] [address] [address] Zari Butcher RBC 3.21 106/ul Critically low 4.20-5.40 [facility] Comment on above: Performed By: #### C BC #### [facility] [address] [place] [address] [address] Zari Butcher WBC 10.7 103/ul Normal 4.0-11.0 [facility] [place] [facility] Comment on above: Performed By: #### C BC #### [facility] [address] [place] [address] [address] Zari Butcher PROF CHEM 8 (BAS METB)on Anion gap [Moles/Vol] 11.1 mmol/L Normal [facility] Comment on above: Performed By: #### B MP ####[facility] [address] [place] [address]DrFrancesca Butcher Calcium [Mass/Vol] 8.4 mg/dL Critically low 8.5-10.1 [facility] Comment on above: Performed By: #### B MP ####[facility] [address] [place] [address]DrFrancesca Butcher Chloride [Moles/Vol] 105 mmol/L Normal 98-107 [facility] [place] [facility] Comment on above: Performed By: #### B MP ####[facility] [address] [place] [address]DrFrancesca Butcher CO2 [Moles/Vol] 26.2 mmol/L Normal 21.0-32.0 [facility] Comment on above: Performed By: #### B MP ####[facility] [address] [place] [address]DrFrancesca Butcher Creatinine [Mass/Vol] 0.49 mg/dL Critically low 0.55-1.02 [facility] [place] [facility] Comment on above: Performed By: #### B MP ####[facility] [address] [place] [address]DrFrancesca Butcher EGFR-AF OMANI >60 Normal >=60 [facility] Comment on above: Performed By: #### B MP ####[facility] [address] [place] [address]Dr. Zari Butcher EGFR-NON AF OMANI >60 Normal >=60 [facility] [place] [facility] Comment on above: Performed By: #### B MP ####[facility] [address] [place] [address]Dr. Zari Butcher Glucose [Mass/Vol] 75 mg/dL Normal 74-[address] [facility] Comment on above: Performed By: #### B MP ####[facility] [address] [place] [address]Dr. Zari Butcher Potassium [Moles/Vol] 3.3 mmol/L Critically low 3.5-5.1 [facility] [place] [facility] Comment on above: Performed By: #### B MP ####[facility] [address] [place] [address]Dr. Zari Butcher Sodium [Moles/Vol] 139 mmol/L Normal 136-[address] [facility] Comment on above: Performed By: #### B MP ####[facility] [address] [place] [address]Dr. Zari Butcher Urea nitrogen [Mass/Vol] 7.0 mg/dL Normal 7.0-18.0 [facility] [place] [facility] Comment on above: Performed By: #### B MP ####[facility] [address] [place] [address]Dr. Zari Butcher Urea nitrogen/Creatinine [Mass ratio] 14.3 mg/mg Normal [facility] [place] [facility] Comment on above: Performed By: #### B MP ####[facility] [address] [place] [address]Dr. Zari Butcher CBC AUTO DIFFon 09-19-2022 BASO # 0.0 103/ul Normal 0.0-0.1 [facility] [place] [facility] Comment on above: Performed By: #### C BC #### [facility] [address] [place] [address] [address] Zari Butcher Basophils/100 WBC (Bld) 0.3 % Normal 0.2-2.0 [facility] Comment on above: Performed By: #### C BC #### [facility] [address] [place] [address] [address] Zari Butcher EO # 0.2 103/ul Normal 0.0-0.7 [facility] Comment on above: Performed By: #### C BC #### [facility] [address] [place] [address] Dr. Zari Butcher Eosinophils/100 WBC (Bld) 1.5 % Normal 0.9-7.0 [facility] [place] [facility] Comment on above: Performed By: #### C BC #### [facility] [address] [place] [address] Dr. Zari Butcher Erythrocyte distribution width (RBC) [Ratio] 14.9 % Normal 11.0-15.0 [facility] [place] [facility] Comment on above: Performed By: #### C BC #### [facility] [address] [place] [address] Dr. Zari Butcher Hematocrit (Bld) [Volume fraction] 27.3 % Critically low 36.0-48.0 [facility] [place] [facility] Comment on above: Performed By: #### C BC #### [facility] [address] [place] [address] Dr. Zari Butcher Hemoglobin (Bld) [Mass/Vol] 8.7 g/dL Critically low 12.0-16.0 [facility] [place] [facility] Comment on above: Performed By: #### C BC #### [facility] [address] [place] [address] Dr. Zari Butcher IG # 0.05 10e3/ul Critically high 0.00-0.03 [facility] Comment on above: Performed By: #### C BC #### [facility] [address] [place] [address] Dr. Zari Butcher IG % 0.4 % Normal 0.0-0.5 [facility] Comment on above: Performed By: #### C BC #### [facility] [address] [place] [address] Dr. Zari Butcher LYMPH # 2.9 103/ul Normal 1.2-3.8 [facility] Comment on above: Performed By: #### C BC #### [facility] [address] [place] [address] Dr. Zari Butcher Lymphocytes/100 WBC (Bld) 21.6 % Normal 20.5-60.0 [facility] [place] [facility] Comment on above: Performed By: #### C BC #### [facility] [address] [place] [address] Dr. Zari Butcher MANUAL DIFF REQ NO Normal [facility] Comment on above: Performed By: #### C BC #### [facility] [address] [place] [address] Dr. Zari Butcher MCH (RBC) [Entitic mass] 27.5 pg Normal 26.7-34.0 [facility] Comment on above: Performed By: #### C BC #### [facility] [address] [place] [address] Dr. Zari Butcher MCHC (RBC) [Mass/Vol] 31.9 g/dL Normal 29.9-35.2 [facility] Comment on above: Performed By: #### C BC #### [facility] [address] [place] [address] Dr. Zari Butcher MCV (RBC) [Entitic vol] 86.4 fL Normal 81.0-99.0 [facility] Comment on above: Performed By: #### C BC #### [facility] [address] [place] [address] Dr. Zari Butcher MONO # 0.7 103/ul Normal 0.3-0.8 [facility] Comment on above: Performed By: #### C BC #### [facility] [address] [place] [address] Dr. Zari Butcher Monocytes/100 WBC (Bld) 5.5 % Normal 1.7-12.0 [facility] Comment on above: Performed By: #### C BC #### [facility] [address] [place] [address] Dr. Zari Butcher NEUT # 9.4 103/ul Critically high 1.4-6.5 [facility] Comment on above: Performed By: #### C BC #### [facility] [address] [place] [address] Dr. Zari Butcher Neutrophils/100 WBC (Bld) 70.7 % Normal 43.0-75.0 [facility] Comment on above: Performed By: #### C BC #### [facility] [address] [place] [address] Dr. Zari Butcher Platelet mean volume (Bld) [Entitic vol] 10.8 fL Normal 9.5-13.5 [facility] Comment on above: Performed By: #### C BC #### [facility] [address] [place] [address] Dr. Zari Butcher PLT 203 103/ul Normal 150-450 [facility] Comment on above: Performed By: #### C BC #### [facility] [address] [place] [address] [address] Zari Butcher RBC 3.16 106/ul Critically low 4.20-5.40 [facility] Comment on above: Performed By: #### C BC #### [facility] [address] [place] [address] Dr. Zari Butcher WBC 13.3 103/ul Critically high 4.0-11.0 [facility] Comment on above: Performed By: #### C BC #### [facility] [address] [place] [address] Dr. Zari Butcher CBC AUTO DIFFon 09-18-2022 BASO # 0.1 103/ul Normal 0.0-0.1 [facility] [place] [facility] Comment on above: Performed By: #### C BC #### [facility] [address] [place] [address] Dr. Zari Butcher Basophils/100 WBC (Bld) 0.4 % Normal 0.2-2.0 [facility] Comment on above: Performed By: #### C BC #### [facility] [address] [place] [address] Dr. Zari Butcher EO # 0.2 103/ul Normal 0.0-0.7 [facility] Comment on above: Performed By: #### C BC #### [facility] [address] [place] [address] Dr. Zari Butcher Eosinophils/100 WBC (Bld) 1.3 % Normal 0.9-7.0 [facility] Comment on above: Performed By: #### C BC #### [facility] [address] [place] [address] Dr. Zari Butcher Erythrocyte distribution width (RBC) [Ratio] 14.6 % Normal 11.0-15.0 [facility] [place] [facility] Comment on above: Performed By: #### C BC #### [facility] [address] [place] [address] Dr. Zari Butcher Hematocrit (Bld) [Volume fraction] 37.8 % Normal 36.0-48.0 [facility] [place] [facility] Comment on above: Performed By: #### C BC #### [facility] [address] [place] [address] Dr. Zari Butcher Hemoglobin (Bld) [Mass/Vol] 12.4 g/dL Normal 12.0-16.0 [facility] [place] [facility] Comment on above: Performed By: #### C BC #### [facility] [address] [place] [address] Dr. Zari Butcher IG # 0.04 10e3/ul Critically high 0.00-0.03 [facility] Comment on above: Performed By: #### C BC #### [facility] [address] [place] [address] Dr. Zari Butcher IG % 0.3 % Normal 0.0-0.5 [facility] [place] [facility] Comment on above: Performed By: #### C BC #### [facility] [address] [place] [address] Dr. Zari Butcher LYMPH # 3.2 103/ul Normal 1.2-3.8 [facility] [place] [facility] Comment on above: Performed By: #### C BC #### [facility] [address] [place] [address] Dr. Zari Butcher Lymphocytes/100 WBC (Bld) 24.6 % Normal 20.5-60.0 [facility] [place] [facility] Comment on above: Performed By: #### C BC #### [facility] [address] [place] [address] Dr. Zari Butcher MANUAL DIFF REQ NO Normal [facility] Comment on above: Performed By: #### C BC #### [facility] [address] [place] [address] Dr. Zari Butcher MCH (RBC) [Entitic mass] 27.8 pg Normal 26.7-34.0 [facility] [place] [facility] Comment on above: Performed By: #### C BC #### [facility] [address] [place] [address] Dr. Zari Butcher MCHC (RBC) [Mass/Vol] 32.8 g/dL Normal 29.9-35.2 [facility] [place] [facility] Comment on above: Performed By: #### C BC #### [facility] [address] [place] [address] Dr. Zari Butcher MCV (RBC) [Entitic vol] 84.8 fL Normal 81.0-99.0 [facility] [place] [facility] Comment on above: Performed By: #### C BC #### [facility] [address] [place] [address] Dr. Zari Butcher MONO # 0.8 103/ul Normal 0.3-0.8 [facility] [place] [facility] Comment on above: Performed By: #### C BC #### [facility] [address] [place] [address] Dr. Zari Butcher Monocytes/100 WBC (Bld) 6.3 % Normal 1.7-12.0 [facility] [place] [facility] Comment on above: Performed By: #### C BC #### [facility] [address] [place] [address] Dr. Zari Butcher NEUT # 8.7 103/ul Critically high 1.4-6.5 [facility] Comment on above: Performed By: #### C BC #### [facility] [address] [place] [address] Dr. Zari Butcher Neutrophils/100 WBC (Bld) 67.1 % Normal 43.0-75.0 [facility] Comment on above: Performed By: #### C BC #### [facility] [address] [place] [address] Dr. Zari Butcher Platelet mean volume (Bld) [Entitic vol] 10.9 fL Normal 9.5-13.5 [facility] [place] [facility] Comment on above: Performed By: #### C BC #### [facility] [address] [place] [address] Dr. Zari Butcher PLT 280 103/ul Normal 150-450 [facility] [place] [facility] Comment on above: Performed By: #### C BC #### [facility] [address] [place] [address] Dr. Zari Butcher RBC 4.46 106/ul Normal 4.20-5.40 [facility] [place] [facility] Comment on above: Performed By: #### C BC #### [facility] [address] [place] [address] Dr. Zari Butcher WBC 13.0 103/ul Critically high 4.0-11.0 [facility] Comment on above: Performed By: #### C BC #### [facility] [address] [place] [address] Dr. Zari Butcher CULTURE URINEon 09-18-2022 CULTURE URINE Culture Observations : NO GROWTH. Normal [facility] [place] [facility] Comment on above: Performed By: #### U RCX #### [facility] [address] [place] [address] Dr. Zari Butcher DRUG SCREEN RAPID (URINE)on 09-18-2022 AMP Negative Normal NEGATIVE [facility] [place] [facility] Comment on above: Performed By: #### R UBIGG #### [facility] [address] [place] [address] Dr. Zari Butcher BAR Negative Normal NEGATIVE [facility] [place] [facility] Comment on above: Performed By: #### R UBIGG #### [facility] [address] [place] [address] Dr. Zari Butcher BUP Negative Normal NEGATIVE [facility] [place] [facility] Comment on above: Performed By: #### R UBIGG #### [facility] [address] [place] [address] Dr. Zari Butcher BZO Negative Normal NEGATIVE [facility] [place] [facility] Comment on above: Performed By: #### R UBIGG #### [facility] [address] [place] [address] Dr. Zari Butcher AILYN Negative Normal NEGATIVE [facility] [place] [facility] Comment on above: Performed By: #### R UBIGG #### [facility] [address] [place] [address] Dr. Zari Butcher CUT-OFFS SEE BELOW Normal [facility] Comment on above: Result Comment: AMP [...] ng/mL Performed By: #### R UBIGG #### [facility] [address] [place] [address] Dr. Zari Butcher DRUG CUT HEADER DRUG CLASS TEST SYST EM CUT-OFF CONCENTRATIONS ARE FOLLOWS: Normal [facility] [place] [facility] Comment on above: Performed By: #### R UBIGG #### [facility] [address] [place] [address] Dr. Zari Butcher mAMP Negative Normal NEGATIVE [facility] [place] [facility] Comment on above: Performed By: #### R UBIGG #### [facility] [address] [place] [address] Dr. Zari Butcher MTD Negative Normal NEGATIVE [facility] [place] [facility] Comment on above: Performed By: #### R UBIGG #### [facility] [address] [place] [address] Dr. Zari Butcher OPI Negative Normal NEGATIVE [facility] [place] [facility] Comment on above: Performed By: #### R UBIGG #### [facility] [address] [place] [address] Dr. Zari Butcher OXY Negative Normal NEGATIVE [facility] [place] [facility] Comment on above: Performed By: #### R UBIGG #### [facility] [address] [place] [address] Dr. Zari Butcher PCP Negative Normal NEGATIVE [facility] [place] [facility] Comment on above: Performed By: #### R UBIGG #### [facility] [address] [place] [address] Dr. Zari Butcher PPX Negative Normal NEGATIVE [facility] [place] [facility] Comment on above: Performed By: #### R UBIGG #### [facility] [address] [place] [address] [address] Zari Butcher TCA Negative Normal NEGATIVE [facility] [place] [facility] Comment on above: Performed By: #### R UBIGG #### [facility] [address] [place] [address] [address] Zari Butcher THC Negative Normal NEGATIVE [facility] [place] [facility] Comment on above: Performed By: #### R UBIGG #### [facility] [address] [place] [address] [address] Zari Butcher TYPE AND SCREENon 09-18-2022 TYPE AND SCREEN Negative Normal [facility] Comment on above: Performed By: #### T NS ####[facility] [address] [place] [address]Dr. Zari Butcher UA (CLEAN/CATCH) UTILITY SPECIALIST/MICRO I F IND.on 09-18-2022 Bilirubin Ql (U) Negative Normal NEGATIVE [facility] Comment on above: Performed By: #### C VDTBH #### [facility] [address] [place] [address] Dr. Zari Butcher Clarity (U) CLEAR Normal CLEAR [facility] [place] [facility] Comment on above: Performed By: #### C VDTBH #### [facility] [address] [place] [address] Dr. Zari Butcher Color (U) LT. YELLOW Normal YELLOW [facility] [place] [facility] Comment on above: Performed By: #### C VDTBH #### [facility] [address] [place] [address] Dr. Zari Butcher Glucose Ql (U) Negative Normal NEGATIVE [facility] Comment on above: Performed By: #### C VDTBH #### [facility] [address] [place] [address] Dr. Zari Butcher Hemoglobin Ql (U) Negative Normal NEGATIVE [facility] Comment on above: Performed By: #### C VDTBH #### [facility] [address] [place] [address] Dr. Zari Butcher Ketones Ql (U) TRACE Abnormal NEGATIVE [facility] Comment on above: Performed By: #### C VDTBH #### [facility] [address] [place] [address] Dr. Zari Butcher LEUKOCYTES MODERATE Abnormal NEGATIVE [facility] Comment on above: Performed By: #### C VDTBH #### [facility] [address] [place] [address] Dr. Zari Butcher Nitrite Ql (U) Negative Normal NEGATIVE [facility] Comment on above: Performed By: #### C VDTBH #### [facility] [address] [place] [address] Dr. Zari Butcher pH (U) 6.5 [pH] Normal 5-9 [facility] Comment on above: Performed By: #### C VDTBH #### [facility] [address] [place] [address] Dr. Zari Butcher SPEC GRAVITY 1.025 Normal 1.005-<=1.0 25 [facility] Comment on above: Performed By: #### C VDTBH #### [facility] [address] [place] [address] Dr. Zari Butcher UA PROTEIN Negative Normal NEGATIVE/ TRACE [facility] Comment on above: Performed By: #### C VDTBH #### [facility] [address] [place] [address] Dr. Zari Butcher UR MICRO IND INDICATED Normal [facility] Comment on above: Performed By: #### C VDTBH #### [facility] [address] [place] [address] Dr. Zari Butcher Urobilinogen Qn (U) 1.0 {Ashvin'U}/dL Normal 0.2 - 1. 0 [facility] Comment on above: Performed By: #### C VDTBH #### [facility] [address] [place] [address] Dr. Zari Butcher URINE MICROSCOPIC ONLYon BACTERIA LARGE Abnormal NONE SEEN [facility] Comment on above: Performed By: #### C VDTBH #### [facility] [address] [place] [address] Dr. Zari Butcher Bacteria identified Cx Nom (U) INDICATED Normal [facility] Comment on above: Performed By: #### C VDTBH #### [facility] [address] [place] [address] Dr. Zari Butcher CAST NONE SEEN Normal NONE SEEN [facility] Comment on above: Performed By: #### C VDTBH #### [facility] [address] [place] [address] Dr. Zari Butcher Crystals LM Nom (Urine sed) NONE SEEN Normal NONE SEEN [facility] Comment on above: Performed By: #### C VDTBH #### [facility] [address] [place] [address] Dr. Zari Butcher Epithelial cells LM Ql (Urine sed) MANY Abnormal NONE SEEN /RARE [facility] Comment on above: Performed By: #### C VDTBH #### [facility] [address] [place] [address] Dr. Zari Butcher MUCOUS SMALL Abnormal NONE SEEN [facility] Comment on above: Performed By: #### C VDTBH #### [facility] [address] [place] [address] Dr. Zari Butcher RBC 2-5 Abnormal 0-2 [facility] Comment on above: Performed By: #### C VDTBH #### [facility] [address] [place] [address] Dr. Zari Butcher WBC 10-20 Abnormal NONE SEEN [facility] Comment on above: Performed By: #### C VDTBH #### [facility] [address] [place] [address] Dr. Zari Butcher Covid-19 PCR ([facility])on SARS-CoV-2 (COVID-19) RNA HILDA+probe Ql (Unsp spec) Not detected Normal NOT DETECTED [facility] Comment on above: Result Comment: When [...] for this test is supported by the [place] of Health and Human Service's declaration that [...] used). Performed By: #### C VDTBH #### [facility] [address] [address] [address] Zari Butcher VAGINITIS/VAGINOSIS DNA PROB Jacques 08-31-2022 Nilda species Negative Normal Negative [facility] Comment on above: Performed By: #### C BC #### [facility] [address] [address] [address] Zari Butcher Gardnerella vaginalis Positive Abnormal Negative [facility] Comment on above: Performed By: #### C BC #### [facility] [address] [address] [address] Zari Butcher Trichomonas vaginalis Negative Normal Negative [facility] Comment on above: Performed By: #### C BC #### [facility] [address] [address] [address] Zari Butcher GROUP B STREP CULTUREon 08-09 S. agalactiae Ag Ql (Unsp spec) Culture Observations: NEGATIVE FOR GROUP B STREPTOCOCCUS. Normal [facility] Comment on above: Performed By: #### G BSCX #### [facility] [address] [address] [address] Zari Butcher AMYLASEon 08-21-2022 Amylase [Catalytic activity/Vol] 47 U/L Normal 25-115 [facility] [place] [facility] Comment on above: Performed By: #### C MP, RUSTY, LIPA ####[facility] [address] [address]Dr. Zari Butcher CBC AUTO DIFFon 11-14-2022 BASO # 0.0 103/ul Normal 0.0-0.1 [facility] [place] [facility] Comment on above: Performed By: #### C BC ####[facility] [address] [address]DrFrancesca Butcher Basophils/100 WBC (Bld) 0.2 % Normal 0.2-2.0 [facility] [place] [facility] Comment on above: Performed By: #### C BC ####[facility] [address] [address]DrFrancesca Butcher EO # 0.2 103/ul Normal 0.0-0.7 [facility] Comment on above: Performed By: #### C BC ####[facility] [address] [place], [place] [address]DrFrancesca Butcher Eosinophils/100 WBC (Bld) 1.5 % Normal 0.9-7.0 [facility] Comment on above: Performed By: #### C BC ####[facility] [address] [place], [place] [address]DrFrancesca Butcher Erythrocyte distribution width (RBC) [Ratio] 14.2 % Normal 11.0-15.0 [facility] [place] [facility] Comment on above: Performed By: #### C BC ####[facility] [address] [place], [place] [address]DrFrancesca Butcher Hematocrit (Bld) [Volume fraction] 35.6 % Critically low 36.0-48.0 [facility] [place] [facility] Comment on above: Performed By: #### C BC ####[facility] [address] [place], [place] [address]DrFrancesca Butcher Hemoglobin (Bld) [Mass/Vol] 11.3 g/dL Critically low 12.0-16.0 [facility] Comment on above: Performed By: #### C BC ####[facility] [address] [place], [place] [address]DrFrancesca Butcher IG # 0.04 10e3/ul Critically high 0.00-0.03 [facility] Comment on above: Performed By: #### C BC ####[facility] [address] [place], [place] [address]Dr. Zari Butcher IG % 0.3 % Normal 0.0-0.5 [facility] [place] [facility] Comment on above: Performed By: #### C BC ####[facility] [address] [address]DrFrancesca Butcher LYMPH # 1.7 103/ul Normal 1.2-3.8 [facility] Comment on above: Performed By: #### C BC ####[facility] [address] [address]DrFrancesca Butcher Lymphocytes/100 WBC (Bld) 14.5 % Critically low 20.5-60.0 [facility] Comment on above: Performed By: #### C BC ####[facility] [address] [place], [place] [address]DrFrancesca Butcher MANUAL DIFF REQ NO Normal [facility] Comment on above: Performed By: #### C BC ####[facility] [address] [address]DrFrancesca Butcher MCH (RBC) [Entitic mass] 27.2 pg Normal 26.7-34.0 [facility] Comment on above: Performed By: #### C BC ####[facility] [address] [place], [place] [address]DrFrancesca Butcher MCHC (RBC) [Mass/Vol] 31.7 g/dL Normal 29.9-35.2 [facility] Comment on above: Performed By: #### C BC ####[facility] [address] [place], [place] [address]DrFrancesca Butcher MCV (RBC) [Entitic vol] 85.8 fL Normal 81.0-99.0 [facility] Comment on above: Performed By: #### C BC ####[facility] [address] [place], [place] [address]DrFrancesca Butcher MONO # 0.7 103/ul Normal 0.3-0.8 [facility] Comment on above: Performed By: #### C BC ####[facility] [address] [place], [place] [address]DrFrancesca Butcher Monocytes/100 WBC (Bld) 6.2 % Normal 1.7-12.0 [facility] Comment on above: Performed By: #### C BC ####[facility] [address] [address]DrFrancesca Butcher NEUT # 9.1 103/ul Critically high 1.4-6.5 [facility] Comment on above: Performed By: #### C BC ####[facility] [address] [address]DrFrancesca Butcher Neutrophils/100 WBC (Bld) 77.3 % Critically high 43.0-75.0 [facility] Comment on above: Performed By: #### C BC ####[facility] [address] [address]DrFrancesca Butcher Platelet mean volume (Bld) [Entitic vol] 11.1 fL Normal 9.5-13.5 [facility] Comment on above: Performed By: #### C BC ####[facility] [address] [address]DrFrancesca Butcher PLT 258 103/ul Normal 150-450 [facility] Comment on above: Performed By: #### C BC ####[facility] [address] [address]DrFrancesca Butcher RBC 4.15 106/ul Critically low 4.20-5.40 [facility] Comment on above: Performed By: #### C BC ####[facility] [address] [address]DrFrancesca Butcher WBC 11.8 103/ul Critically high 4.0-11.0 [facility] Comment on above: Performed By: #### C BC ####[facility] [address] [address]DrFrancesca Butcher BASO # 0.0 103/ul Normal 0.0-0.1 [facility] Comment on above: Performed By: #### C VDTB #### [facility] [address] [address] [address] Zari Butcher Basophils/100 WBC (Bld) 0.2 % Normal 0.2-2.0 [facility] Comment on above: Performed By: #### C VDTBH #### [facility] [address] [place] [address] Dr. Zari Butcher EO # 0.3 103/ul Normal 0.0-0.7 [facility] Comment on above: Performed By: #### C VDTBH #### [facility] [address] [place] [address] Dr. Zari Butcher Eosinophils/100 WBC (Bld) 1.4 % Normal 0.9-7.0 [facility] Comment on above: Performed By: #### C VDTBH #### [facility] [address] [place] [address] Dr. Zari Butcher Erythrocyte distribution width (RBC) [Ratio] 14.1 % Normal 11.0-15.0 [facility] Comment on above: Performed By: #### C VDTBH #### [facility] [address] [place] [address] Dr. Zari Butcher Hematocrit (Bld) [Volume fraction] 38.2 % Normal 36.0-48.0 [facility] Comment on above: Performed By: #### C VDTBH #### [facility] [address] [place] [address] Dr. Zari Butcher Hemoglobin (Bld) [Mass/Vol] 12.6 g/dL Normal 12.0-16.0 [facility] Comment on above: Performed By: #### C VDTBH #### [facility] [address] [place] [address] Dr. Zari Butcher IG # 0.08 10e3/ul Critically high 0.00-0.03 [facility] Comment on above: Performed By: #### C VDTBH #### [facility] [address] [place] [address] Dr. Zari Butcher IG % 0.5 % Normal 0.0-0.5 [facility] Comment on above: Performed By: #### C VDTBH #### [facility] [address] [place] [address] Dr. Zari Butcher LYMPH # 1.8 103/ul Normal 1.2-3.8 [facility] Comment on above: Performed By: #### C VDTBH #### [facility] [address] [place] [address] Dr. Zari Butcher Lymphocytes/100 WBC (Bld) 10.1 % Critically low 20.5-60.0 [facility] Comment on above: Performed By: #### C VDTBH #### [facility] [address] [place] [address] Dr. Zari Butcher MANUAL DIFF REQ NO Normal [facility] Comment on above: Performed By: #### C VDTBH #### [facility] [address] [place] [address] Dr. Zari Butcher MCH (RBC) [Entitic mass] 27.6 pg Normal 26.7-34.0 [facility] Comment on above: Performed By: #### C VDTBH #### [facility] [address] [place] [address] Dr. Zari Butcher MCHC (RBC) [Mass/Vol] 33.0 g/dL Normal 29.9-35.2 [facility] Comment on above: Performed By: #### C VDTBH #### [facility] [address] [place] [address] Dr. Zari Butcher MCV (RBC) [Entitic vol] 83.6 fL Normal 81.0-99.0 [facility] Comment on above: Performed By: #### C VDTBH #### [facility] [address] [place] [address] Dr. Zari Butcher MONO # 1.1 103/ul Critically high 0.3-0.8 [facility] Comment on above: Performed By: #### C VDTBH #### [facility] [address] [place] [address] Dr. Zari Butcher Monocytes/100 WBC (Bld) 6.1 % Normal 1.7-12.0 [facility] Comment on above: Performed By: #### C VDTBH #### [facility] [address] [place] [address] Dr. Zari Butcher NEUT # 14.4 103/ul Critically high 1.4-6.5 [facility] Comment on above: Performed By: #### C VDTBH #### [facility] [address] [place] [address] Dr. Zari Butcher Neutrophils/100 WBC (Bld) 81.7 % Critically high 43.0-75.0 [facility] Comment on above: Performed By: #### C VDTBH #### [facility] [address] [place] [address] Dr. Zari Butcher Platelet mean volume (Bld) [Entitic vol] 10.8 fL Normal 9.5-13.5 [facility] Comment on above: Performed By: #### C VDTBH #### [facility] [address] [place] [address] Dr. Zari Butcher PLT 288 103/ul Normal 150-450 [facility] Comment on above: Performed By: #### C VDTBH #### [facility] [address] [place] [address] Dr. Zari Butcher RBC 4.57 106/ul Normal 4.20-5.40 [facility] Comment on above: Performed By: #### C VDTBH #### [facility] [address] [place] [address] Dr. Zari Butcher WBC 17.6 103/ul Critically high 4.0-11.0 [facility] Comment on above: Performed By: #### C VDTBH #### [facility] [address] [place] [address] Dr. Zari Butcher CULTURE URINEon 08-21-2022 CULTURE URINE Culture Observations : NO GROWTH. Normal [facility] Comment on above: Performed By: #### U RCX #### [facility] [address] [place] [address] Dr. Zari Butcher LIPASEon 08-21-2022 Lipase [Catalytic activity/Vol] 86.0 U/L Normal 73.0-393.0 [facility] Comment on above: Performed By: #### C MP, RUSTY, LIPA ####[facility] [address] [place], [place] [address]PoDr. Zari Butcher PROF 14(COMP METB)on 08-21- 022 Albumin [Mass/Vol] 2.3 g/dL Critically low 3.4-5.0 [facility] Comment on above: Performed By: #### C BC #### [facility] [address] [address] [address] Zari Butcher Albumin/Globulin [Mass ratio] 0.5 {ratio} Normal [facility] Comment on above: Performed By: #### C BC #### [facility] [address] [address] [address] Zari Butcher ALP [Catalytic activity/Vol] 160 U/L Critically high 46-116 [facility] Comment on above: Performed By: #### C BC #### [facility] [address] [place] [address] Dr. Zari Butcher ALT [Catalytic activity/Vol] 28 U/L Normal 14-59 [facility] Comment on above: Performed By: #### C BC #### [facility] [address] [place] [address] Dr. Zari Butcher Anion gap [Moles/Vol] 11.8 mmol/L Normal [facility] Comment on above: Performed By: #### C BC #### [facility] [address] [place] [address] Dr. Zari Butcher AST [Catalytic activity/Vol] 53 U/L Critically high 15-37 [facility] Comment on above: Performed By: #### C BC #### [facility] [address] [address] [address] Zari Butcher Bilirubin [Mass/Vol] 0.6 mg/dL Normal 0.2-1.0 [facility] Comment on above: Performed By: #### C BC #### [facility] [address] [address] [address] Zari Butcher Calcium [Mass/Vol] 8.9 mg/dL Normal 8.5-10.1 [facility] Comment on above: Performed By: #### C BC #### [facility] [address] [address] [address] Zari Butcher Chloride [Moles/Vol] 103 mmol/L Normal 98-107 [facility] Comment on above: Performed By: #### C BC #### [facility] [address] [place] [address] Dr. Zari Butcher CO2 [Moles/Vol] 23.7 mmol/L Normal 21.0-32.0 [facility] Comment on above: Performed By: #### C BC #### [facility] [address] [place] [address] Dr. Zari Butcher Creatinine [Mass/Vol] 0.48 mg/dL Critically low 0.55-1.02 [facility] Comment on above: Performed By: #### C BC #### [facility] [address] [place] [address] Dr. Zari Butcher EGFR-AF OMANI >60 Normal >=60 [facility] Comment on above: Performed By: #### C BC #### [facility] [address] [place] [address] Dr. Zari Butcher EGFR-NON AF OMANI >60 Normal >=60 [facility] Comment on above: Performed By: #### C BC #### [facility] [address] [place] [address] Dr. Zari Butcher Globulin (S) [Mass/Vol] 4.9 g/dL Normal [facility] Comment on above: Performed By: #### C BC #### [facility] [address] [place] [address] Dr. Zari Butcher Glucose [Mass/Vol] 101 mg/dL Normal 74-[address] [facility] Comment on above: Performed By: #### C BC #### [facility] [address] [place] [address] Dr. Zari Butcher Potassium [Moles/Vol] 3.5 mmol/L Normal 3.5-5.1 [facility] Comment on above: Performed By: #### C BC #### [facility] [address] [place] [address] Dr. Zari Butcher Protein [Mass/Vol] 7.2 g/dL Normal 6.4-8.2 [facility] Comment on above: Performed By: #### C BC #### [facility] [address] [place] [address] Dr. Zari Butcher Sodium [Moles/Vol] 135 mmol/L Critically low 136-145 [facility] Comment on above: Performed By: #### C BC #### [facility] [address] [place] [address] Dr. Zari Butcher Urea nitrogen [Mass/Vol] 7.0 mg/dL Normal 7.0-18.0 [facility] Comment on above: Performed By: #### C BC #### [facility] [address] [place] [address] Dr. Zari Butcher Urea nitrogen/Creatinine [Mass ratio] 14.6 mg/mg Normal [facility] Comment on above: Performed By: #### C BC #### [facility] [address] [place] [address] Dr. Zari Butcher SGOTon 08-21-2022 AST [Catalytic activity/Vol] 59 U/L Critically high 15-37 [facility] Comment on above: Performed By: #### C VDTBH #### [facility] [address] [place] [address] Dr. Zari Buthcer SGPTon 08-21-2022 ALT [Catalytic activity/Vol] 41 U/L Normal 14-59 [facility] Comment on above: Performed By: #### C VDTBH #### [facility] [address] [place] [address] Dr. Zari Butcher UA (CLEAN/CATCH) UTILITY SPECIALIST/MICRO I F IND.on 08-21-2022 Bilirubin Ql (U) Negative Normal NEGATIVE [facility] Comment on above: Performed By: #### R UBIGG #### [facility] [address] [place] [address] Dr. Zari Butcher Clarity (U) CLEAR Normal CLEAR [facility] Comment on above: Performed By: #### R UBIGG #### [facility] [address] [place] [address] Dr. Zari Butcher Color (U) LT. YELLOW Normal YELLOW [facility] Comment on above: Performed By: #### R UBIGG #### [facility] [address] [place] [address] Dr. Zari Butcher Glucose Ql (U) Negative Normal NEGATIVE [facility] Comment on above: Performed By: #### R UBIGG #### [facility] [address] [place] [address] Dr. Zari Butcher Hemoglobin Ql (U) Negative Normal NEGATIVE [facility] Comment on above: Performed By: #### R UBIGG #### [facility] [address] [place] [address] Dr. Zari Butcher Ketones Ql (U) Negative Normal NEGATIVE [facility] Comment on above: Performed By: #### R UBIGG #### [facility] [address] [place] [address] Dr. Zari Butcher LEUKOCYTES SMALL Abnormal NEGATIVE [facility] Comment on above: Performed By: #### R UBIGG #### [facility] [address] [place] [address] Dr. Zari Butcher Nitrite Ql (U) Negative Normal NEGATIVE [facility] Comment on above: Performed By: #### R UBIGG #### [facility] [address] [place] [address] Dr. Zari Butcher pH (U) 7.5 [pH] Normal 5-9 [facility] Comment on above: Performed By: #### R UBIGG #### [facility] [address] [place] [address] Dr. Zrai Butcher SPEC GRAVITY 1.015 Normal 1.005-<=1.0 25 [facility] Comment on above: Performed By: #### R UBIGG #### [facility] [address] [place] [address] Dr. Zari Butcher UA PROTEIN Negative Normal NEGATIVE/ TRACE [facility] Comment on above: Performed By: #### R UBIGG #### [facility] [address] [place] [address] Dr. Zari Butcher UR MICRO IND INDICATED Normal [facility] Comment on above: Performed By: #### R UBIGG #### [facility] [address] [place] [address] Dr. Zari Butcher Urobilinogen Qn (U) 4 {Ashvin'U}/dL Abnormal 0.2 - 1.0 [facility] Comment on above: Performed By: #### R UBIGG #### [facility] [address] [place] [address] Dr. Zari Butcher URINE MICROSCOPIC ONLYon BACTERIA SMALL Abnormal NONE SEEN [facility] Comment on above: Performed By: #### R UBIGG #### [facility] [address] [place] [address] Dr. Zari Butcher Bacteria identified Cx Nom (U) INDICATED Normal [facility] Comment on above: Performed By: #### R UBIGG #### [facility] [address] [place] [address] Dr. Zari Butcher CAST NONE SEEN Normal NONE SEEN [facility] Comment on above: Performed By: #### R UBIGG #### [facility] [address] [place] [address] Dr. Zari Butcher Crystals LM Nom (Urine sed) NONE SEEN Normal NONE SEEN [facility] Comment on above: Performed By: #### R UBIGG #### [facility] [address] [place] [address] Dr. Zari Butcher Epithelial cells LM Ql (Urine sed) MANY Abnormal NONE SEEN /RARE [facility] Comment on above: Performed By: #### R UBIGG #### [facility] [address] [place] [address] Dr. Zari Butcher MUCOUS NONE SEEN Normal NONE SEEN [facility] Comment on above: Performed By: #### R UBIGG #### [facility] [address] [place] [address] Dr. Zari Butcher RBC 2-5 Abnormal 0-2 [facility] Comment on above: Performed By: #### R UBIGG #### [facility] [address] [place] [address] Dr. Zari Butcher WBC 5-10 Abnormal NONE SEEN [facility] Comment on above: Performed By: #### R UBIGG #### [facility] [address] [address] [address] Zari Butcher US PREG BIOPHY W [...] KIRSTEN MATA Date: 2022-08-21 16:40 Normal [facility] US PREG PLACENTAon US PREG PLACENTA [...] KIRSTEN MATA Date: 2022-08-21 11:42 Normal [facility] US PREG INCOMPLETE ANATOMYon 08-08-2022 US [...] by: ALEE MARTELL Date: 2022-08-08 05:57 Normal [facility] US PREG INCOMPLETE ANATOMYon 07-06-2022 US PREG [...] by: ALEE MARTELL Date: 2022-07-06 16:19 Normal [facility] US PREG INCOMPLETE ANATOMYon 06-14-2022 US PREG [...] by: ALEE MARTELL Date: 2022-06-14 16:20 Normal [facility] GLUCOSE - 1HRon 06-10-2022 Glucose [Mass/Vol] 137 mg/dL Critically high 74-106 T [facility] Comment on above: Performed By: #### R UBIGG #### [facility] [address] [place] [address] Dr. Zari Butcher HEMOGRAM AND PLATELon 2021 Hematocrit (Bld) [Volume fraction] 38.4 % Normal 36.0-48.0 [facility] Comment on above: Performed By: #### R UBIGG #### [facility] [address] [place] [address] Dr. Zari Butcher Hemoglobin (Bld) [Mass/Vol] 12.4 g/dL Normal 12.0-16.0 [facility] Comment on above: Performed By: #### R UBIGG #### [facility] [address] [place] [address] Dr. Zari Butcher MCH (RBC) [Entitic mass] 27.7 pg Normal 26.7-34.0 [facility] Comment on above: Performed By: #### R UBIGG #### [facility] [address] [place] [address] Dr. Zari Butcher MCHC (RBC) [Mass/Vol] 32.3 g/dL Normal 29.9-35.2 [facility] Comment on above: Performed By: #### R UBIGG #### [facility] [address] [place] [address] Dr. Zari Butcher MCV (RBC) [Entitic vol] 85.7 fL Normal 81.0-99.0 [facility] Comment on above: Performed By: #### R UBIGG #### [facility] [address] [place] [address] Dr. Zari Butcher PLT 274 103/ul Normal 150-450 [facility] Comment on above: Performed By: #### R UBIGG #### [facility] [facility] [address] [place] [address] Dr. Zari Butcher RBC 4.48 106/ul Normal 4.20-5.40 [facility] Comment on above: Performed By: #### R UBIGG #### [facility] [address] [place] [address] Dr. Zari Butcher WBC 10.5 103/ul Normal 4.0-11.0 [facility] Comment on above: Performed By: #### R UBIGG #### [facility] [address] [place], [place] [id number] Dr. Zari Butcher US PREG ANATOMY SINGLEon [...] by: KIRSTEN MATA Date: 2022-05-16 18:25 Normal [facility] [place] [facility] CHEMISTRYOrdered By: SYSTEM SYSTEM on 05-06-2022 Albumin [...] Interpretation Code Negative [facility] UA Auto SS Horine.plasma/Horine .RBC (Bld) [Mass ratio] 0-3 /HPF Normal [...] [facility] UA Auto SS Urobilinogen Qn (U) 1.0224910 {Ashvin'U}/dL Normal 0.0 - 1.0 EU/dL CARL [...] [Catalytic activity/Vol] 36 U/L Normal 25-115 [facility] Comment on above: Performed By: #### C BC #### [facility] [address] [place], [place] [address] Dr. Zari Butcher CBC AUTO DIFFon 04-01-2022 BASO # 0.0 103/ul Normal 0.0-0.1 [facility] Comment on above: Performed By: #### C BC ####[facility] [address] [place], [place] [address]SvFrancesca Butcher Basophils/100 WBC (Bld) 0.2 % Normal 0.2-2.0 [facility] Comment on above: Performed By: #### C BC ####[facility] [address] [place] [address]DrFrancesca Butcher EO # 0.1 103/ul Normal 0.0-0.7 [facility] Comment on above: Performed By: #### C BC ####[facility] [address] [place] [address]Dr. Zari Butcher Eosinophils/100 WBC (Bld) 1.0 % Normal 0.9-7.0 [facility] Comment on above: Performed By: #### C BC ####[facility] [address] [place] [address]Dr. Zari Butcher Erythrocyte distribution width (RBC) [Ratio] 13.5 % Normal 11.0-15.0 [facility] Comment on above: Performed By: #### C BC ####[facility] [address] [place], [place] [address]Dr. Zari Butcher Hematocrit (Bld) [Volume fraction] 41.9 % Normal 36.0-48.0 [facility] [place] [facility] Comment on above: Performed By: #### C BC ####[facility] [address] [place], [place] [address]Dr. Zari Butcher Hemoglobin (Bld) [Mass/Vol] 13.7 g/dL Normal 12.0-16.0 [facility] Comment on above: Performed By: #### C BC ####[facility] [address] [place], [place] [address]Dr. Zari Butcher IG # 0.04 10e3/ul Critically high 0.00-0.03 [facility] Comment on above: Performed By: #### C BC ####[facility] [address] [place], [place] [address]Dr. Zari Butcher IG % 0.4 % Normal 0.0-0.5 [facility] Comment on above: Performed By: #### C BC ####[facility] [address] [place], [place] [address]Dr. Zari Butcher LYMPH # 1.3 103/ul Normal 1.2-3.8 [facility] Comment on above: Performed By: #### C BC ####[facility] [address] [place], [place] [address]Dr. Zari Butcher Lymphocytes/100 WBC (Bld) 12.8 % Critically low 20.5-60.0 [facility] Comment on above: Performed By: #### C BC ####[facility] [address] [place] [address]Dr. Zari Butcher MANUAL DIFF REQ NO Normal [facility] Comment on above: Performed By: #### C BC ####[facility] [address] [place] [address]Dr. Zari Butcher MCH (RBC) [Entitic mass] 27.7 pg Normal 26.7-34.0 [facility] Comment on above: Performed By: #### C BC ####[facility] [address] [place] [address]Dr. Zari Butcher MCHC (RBC) [Mass/Vol] 32.7 g/dL Normal 29.9-35.2 [facility] Comment on above: Performed By: #### C BC ####[facility] [address] [place] [address]Dr. Zari Butcher MCV (RBC) [Entitic vol] 84.6 fL Normal 81.0-99.0 [facility] Comment on above: Performed By: #### C BC ####[facility] [address] [place] [address]Dr. Zari Butcher MONO # 0.4 103/ul Normal 0.3-0.8 [facility] Comment on above: Performed By: #### C BC ####[facility] [address] [place] [address]Dr. Zari Hadley Monocytes/100 WBC (Bld) 4.3 % Normal 1.7-12.0 [facility] Comment on above: Performed By: #### C BC ####[facility] [address] [place] [address]Dr. Zari Butcher NEUT # 8.1 103/ul Critically high 1.4-6.5 [facility] Comment on above: Performed By: #### C BC ####[facility] [address] [place], [place] [address]Dr. Zari Butcher Neutrophils/100 WBC (Bld) 81.3 % Critically high 43.0-75.0 [facility] Comment on above: Performed By: #### C BC ####[facility] [address] [place] [address]Dr. Zari Butcher Platelet mean volume (Bld) [Entitic vol] 9.8 fL Normal 9.5-13.5 [facility] [place] [facility] Comment on above: Performed By: #### C BC ####[facility] [address] [place] [address]Dr. Zari Butcher PLT 278 103/ul Normal 150-450 [facility] Comment on above: Performed By: #### C BC ####[facility] [address] [place] [address]Dr. Zari Butcher RBC 4.95 106/ul Normal 4.20-5.40 [facility] [place] [facility] Comment on above: Performed By: #### C BC ####[facility] [address] [place] [address]Dr. Zari Butcher WBC 9.9 103/ul Normal 4.0-11.0 [facility] [place] [facility] Comment on above: Performed By: #### C BC ####[facility] [address] [place] [address]Dr. Zari Butcher ER URINE PROFILEon 2 Bilirubin Ql (U) Negative Normal NEGATIVE [facility] Comment on above: Performed By: #### C VDTBH #### [facility] [address] [place] [address] Dr. Zari Butcher Clarity (U) CLEAR Normal CLEAR [facility] Comment on above: Performed By: #### C VDTBH #### [facility] [address] [place] [address] Dr. Zari Butcher Color (U) YELLOW Normal YELLOW [facility] Comment on above: Performed By: #### C VDTBH #### [facility] [address] [place] [address] Dr. Zari Butcher ERUJORDEN A micrscopic examina tion will be performed if indicated. Normal [facility] Comment on above: Performed By: #### C VDTBH #### [facility] [address] [place] [address] Dr. Zari Butcher Glucose Ql (U) Negative Normal NEGATIVE [facility] Comment on above: Performed By: #### C VDTBH #### [facility] [address] [place] [address] [address] Zari Butcher Hemoglobin Ql (U) Negative Normal NEGATIVE [facility] Comment on above: Performed By: #### C VDTBH #### [facility] [address] [place] [address] Dr. Zari Butcher Ketones Ql (U) Negative Normal NEGATIVE [facility] Comment on above: Performed By: #### C VDTBH #### [facility] [address] [place] [address] Dr. Zari Butcher LEUKOCYTES Negative Normal NEGATIVE [facility] [place] [facility] Comment on above: Performed By: #### C VDTBH #### [facility] [address] [place] [address] Dr. Zari Butcher Nitrite Ql (U) Negative Normal NEGATIVE [facility] Comment on above: Performed By: #### C VDTBH #### [facility] [address] [place] [address] Dr. Zari Butcher pH (U) 5.5 [pH] Normal 5-9 [facility] [place] [facility] Comment on above: Performed By: #### C VDTBH #### [facility] [address] [place] [address] Dr. Zari Butcher SPEC GRAVITY >=1.030 Abnormal 1.005-<=1.0 25 [facility] [place] [facility] Comment on above: Performed By: #### C VDTBH #### [facility] [address] [place] [address] Dr. Zari Butcher UA PROTEIN Negative Normal NEGATIVE/ TRACE [facility] Comment on above: Performed By: #### C VDTBH #### [facility] [address] [place] [address] Dr. Zari Butcher UR MICRO IND NOT INDICATED Normal [facility] Comment on above: Performed By: #### C VDTBH #### [facility] [address] [place] [address] Dr. Zari Butcher Urobilinogen Qn (U) 2.0 {Ashvin'U}/dL Abnormal 0.2 - 1. 0 [facility] [place] [facility] Comment on above: Performed By: #### C VDTBH #### [facility] [address] [place] [address] Dr. Zari Butcher LIPASEon 04-01-2022 Lipase [Catalytic activity/Vol] 56.0 U/L Critically low 73.0-393.0 [facility] [place] [facility] Comment on above: Performed By: #### C BC #### [facility] [address] [place] [address] Dr. Zari Butcher PROF 14(COMP METB)on 022 Albumin [Mass/Vol] 2.8 g/dL Critically low 3.4-5.0 [facility] Comment on above: Performed By: #### C BC #### [facility] [address] [place] [address] Dr. Zari Butcher Albumin/Globulin [Mass ratio] 0.6 {ratio} Normal [facility] [place] [facility] Comment on above: Performed By: #### C BC #### [facility] [address] [place] [address] Dr. Zari Butcher ALP [Catalytic activity/Vol] 74 U/L Normal 46-116 [facility] [place] [facility] Comment on above: Performed By: #### C BC #### [facility] [address] [place] [address] Dr. Zari Butcher ALT [Catalytic activity/Vol] 40 U/L Normal 14-59 [facility] [place] [facility] Comment on above: Performed By: #### C BC #### [facility] [address] [place] [address] Dr. Zari Butcher Anion gap [Moles/Vol] 11.5 mmol/L Normal [facility] Comment on above: Performed By: #### C BC #### [facility] [address] [place] [address] Dr. Zari Butchre AST [Catalytic activity/Vol] 18 U/L Normal 15-37 [facility] [place] [facility] Comment on above: Performed By: #### C BC #### [facility] [address] [place] [address] Dr. Zari Butcher Bilirubin [Mass/Vol] 0.4 mg/dL Normal 0.2-1.0 [facility] [place] [facility] Comment on above: Performed By: #### C BC #### [facility] [address] [place] [address] [address] Zari Butcher Calcium [Mass/Vol] 8.6 mg/dL Normal 8.5-10.1 [facility] Comment on above: Performed By: #### C BC #### [facility] [address] [place] [address] [address] Zari Butcher Chloride [Moles/Vol] 104 mmol/L Normal 98-107 [facility] Comment on above: Performed By: #### C BC #### [facility] [address] [place] [address] Dr. Zari Butcher CO2 [Moles/Vol] 25.2 mmol/L Normal 21.0-32.0 [facility] Comment on above: Performed By: #### C BC #### [facility] [address] [place] [address] [address] Zari Butcher Creatinine [Mass/Vol] 0.48 mg/dL Critically low 0.55-1.02 [facility] [place] [facility] Comment on above: Performed By: #### C BC #### [facility] [address] [place] [address] Dr. Zari Butcher EGFR-AF OMANI >60 Normal >=60 [facility] Comment on above: Performed By: #### C BC #### [facility] [address] [place] [address] Dr. Zari Butcher EGFR-NON AF OMANI >60 Normal >=60 [facility] Comment on above: Performed By: #### C BC #### [facility] [address] [place] [address] [address] Zari Butcher Globulin (S) [Mass/Vol] 4.5 g/dL Normal [facility] [place] [facility] Comment on above: Performed By: #### C BC #### [facility] [address] [place] [address] Dr. Zari Butcher Glucose [Mass/Vol] 100 mg/dL Normal 74-[address] [facility] Comment on above: Performed By: #### C BC #### [facility] [address] [place] [address] [address] Zari Butcher Potassium [Moles/Vol] 3.7 mmol/L Normal 3.5-5.1 [facility] [place] [facility] Comment on above: Performed By: #### C BC #### [facility] [address] [place] [address] [address] Zari Butcher Protein [Mass/Vol] 7.3 g/dL Normal 6.4-8.[address] [facility] Comment on above: Performed By: #### C BC #### [facility] [address] [place] [address] [address] Zari Butcher Sodium [Moles/Vol] 137 mmol/L Normal 136-145 [facility] Comment on above: Performed By: #### C BC #### [facility] [address] [place] [address] [address] Zari Butcher Urea nitrogen [Mass/Vol] 5.0 mg/dL Critically low 7.0-18.0 [facility] [place] [facility] Comment on above: Performed By: #### C BC #### [facility] [address] [place] [address] [address] Zari Butcher Urea nitrogen/Creatinine [Mass ratio] 10.4 mg/mg Normal [facility] [place] [facility] Comment on above: Performed By: #### C BC #### [facility] [address] [place] [address] [address] Zari Butcher HEP B SURFACE ANTIGEN SCREEN on 03-09-2022 HBsAg Screen Negative Normal Negative [facility] [place] [facility] Comment on above: Performed By: #### R UBIGG #### [facility] [address] [place] [address] [address] Zari Butcher HEPATITIS C VIRUS AB W/ REFL EX QUANTon 03-09-2022 HCV AB <0.1 Normal 0.0-0.9 [facility] [place] [facility] Comment on above: Performed By: #### R UBIGG #### [facility] [address] [place] [address] [address] Zari Butcher Interpretation: Comment Normal [facility] Comment on above: Result Comment: Nega tive Not infected with HCV, unless recent infection is suspected or other evidence exists to indicate HCV infection. Performed By: #### R UBIGG #### [facility] [address] [place] [address] Dr. Zari Butcher HIV 1 AND 2 WITH REFLEXon HIV Screen 4th Generation wRfx Non-Reactive Normal Non Reactive [facility] Comment on above: Result Comment: HIV Negative HIV-1/HIV-2 antibodies and HIV-1 p24 antigen were NOT detected. There is no laboratory evidence of HIV infection. Performed By: #### R UBIGG #### [facility] [address] [place] [address] Dr. Zari Butcher RPR QUANTon 03-09-2022 Rapid Plasma Reagin, Quant Non-Reactive Normal NonRea<1:1 [facility] [place] [facility] Comment on above: Result Comment: Plea se Note: This test does not meet current guidelines for screening and diagnosis of syphilis. This test is intended for following treatment response in patients being treated for syphilis infection. To screen for syphilis infection, a reflex cascade that includes both RPR and a treponema-specific assay should be utilized, such as Treponema pallidum (Syphilis) Screening [place] (815973) or Rapid Plasma Reagin (RPR) Test With Reflex to Quantitative RPR and Confirmatory Treponema pallidum Antibodies (703580). Performed By: #### C BC #### [facility] [address] [place] [address] Dr. Zari Butcher RUBELLA AB IGGon 03-09-2022 Rubella Antibodies, IgG 1.48 index Normal Immune >0.99 [facility] [place] [facility] Comment on above: Result Comment: Non- immune <0.90 Equivocal 0.90 - 0.99 Immune >0.99 Performed By: #### R UBIGG #### [facility] [address] [place] [address] Dr. Zari Butcher CBC AUTO DIFFon 03-08-2022 BASO # 0.0 103/ul Normal 0.0-0.1 [facility] [place] [facility] Comment on above: Performed By: #### C BC #### [facility] [address] [place] [address] Dr. Zari Butcher Basophils/100 WBC (Bld) 0.3 % Normal 0.2-2.0 [facility] [place] [facility] Comment on above: Performed By: #### C BC #### [facility] [address] [place] [address] Dr. Zari Butcher EO # 0.2 103/ul Normal 0.0-0.7 [facility] [place] [facility] Comment on above: Performed By: #### C BC #### [facility] [address] [place] [address] [address] Zari Butcher Eosinophils/100 WBC (Bld) 1.7 % Normal 0.9-7.0 [facility] [place] [facility] Comment on above: Performed By: #### C BC #### [facility] [address] [place] [address] Dr. Zari Butcher Erythrocyte distribution width (RBC) [Ratio] 13.2 % Normal 11.0-15.0 [facility] [place] [facility] Comment on above: Performed By: #### C BC #### [facility] [address] [place] [address] Dr. Zari Butcher Hematocrit (Bld) [Volume fraction] 42.0 % Normal 36.0-48.0 [facility] [place] [facility] Comment on above: Performed By: #### C BC #### [facility] [address] [place] [address] Dr. Zari Butcher Hemoglobin (Bld) [Mass/Vol] 13.5 g/dL Normal 12.0-16.0 [facility] [place] [facility] Comment on above: Performed By: #### C BC #### [facility] [address] [place] [address] Dr. Zari Butcher IG # 0.04 10e3/ul Critically high 0.00-0.03 [facility] Comment on above: Performed By: #### C BC #### [facility] [address] [place] [address] Dr. Zari Butcher IG % 0.4 % Normal 0.0-0.5 [facility] Comment on above: Performed By: #### C BC #### [facility] [address] [place] [address] Dr. Zari Butcher LYMPH # 2.5 103/ul Normal 1.2-3.8 [facility] [place] [facility] Comment on above: Performed By: #### C BC #### [facility] [address] [place] [address] Dr. Zari Butcher Lymphocytes/100 WBC (Bld) 22.6 % Normal 20.5-60.0 [facility] [place] [facility] Comment on above: Performed By: #### C BC #### [facility] [address] [place] [address] Dr. Zari Butcher MANUAL DIFF REQ NO Normal [facility] Comment on above: Performed By: #### C BC #### [facility] [address] [place] [address] Dr. Zari Butcher MCH (RBC) [Entitic mass] 27.2 pg Normal 26.7-34.0 [facility] [place] [facility] Comment on above: Performed By: #### C BC #### [facility] [address] [place] [address] Dr. Zari Butcher MCHC (RBC) [Mass/Vol] 32.1 g/dL Normal 29.9-35.2 [facility] [place] [facility] Comment on above: Performed By: #### C BC #### [facility] [address] [place] [address] Dr. Zari Butcher MCV (RBC) [Entitic vol] 84.5 fL Normal 81.0-99.0 [facility] [place] [facility] Comment on above: Performed By: #### C BC #### [facility] [address] [place] [address] Dr. Zari Butcher MONO # 0.6 103/ul Normal 0.3-0.8 [facility] Comment on above: Performed By: #### C BC #### [facility] [address] [place] [address] Dr. Zari Butcher Monocytes/100 WBC (Bld) 5.1 % Normal 1.7-12.0 [facility] [place] [facility] Comment on above: Performed By: #### C BC #### [facility] [address] [place] [address] Dr. Zari Butcher NEUT # 7.7 103/ul Critically high 1.4-6.5 [facility] Comment on above: Performed By: #### C BC #### [facility] [address] [place] [address] [address] Zari Butcher Neutrophils/100 WBC (Bld) 69.9 % Normal 43.0-75.0 [facility] [place] [facility] Comment on above: Performed By: #### C BC #### [facility] [address] [place] [address] [address] Zari Butcher Platelet mean volume (Bld) [Entitic vol] 10.1 fL Normal 9.5-13.5 [facility] [place] [facility] Comment on above: Performed By: #### C BC #### [facility] [address] [place] [address] [address] Zari Butcher PLT 312 103/ul Normal 150-450 [facility] [place] [facility] Comment on above: Performed By: #### C BC #### [facility] [address] [place] [address] Dr. Zari Butcher RBC 4.97 106/ul Normal 4.20-5.40 [facility] [place] [facility] Comment on above: Performed By: #### C BC #### [facility] [address] [place] [address] Dr. Zari Butcher WBC 11.0 103/ul Normal 4.0-11.0 [facility] [place] [facility] Comment on above: Performed By: #### C BC #### [facility] [address] [place] [address] Dr. Zari Butcher CULTURE URINEon 03-08-2022 CULTURE URINE Culture Observations : LIGHT GROWTH OF MIXED GENITAL ALIVIA. NO POTENTIAL PATHOGENS SEEN. Normal [facility] Comment on above: Performed By: #### U RCX ####[facility] [address] [place] [address]Dr. Zari Butcher GLYCOHEMOGLOBIN A1Con 2021 ADA RECOMMENDATION SEE BELOW Normal [facility] Comment on above: Result Comment: ADA RECOMMENDED LIMIT 4.0 - 6.0 ADA THERAPEUTIC TARGET < 7.0 ACTION SUGGESTED > 7.0 Performed By: #### R UBIGG #### [facility] [address] [place] [address] [address] Zari Butcher Glucose [Mass/Vol] 114 mg/dL Normal [facility] Comment on above: Performed By: #### R UBIGG #### [facility] [address] [place] [address] [address] Zari Butcher HbA1c (Bld) [Mass fraction] 5.6 % Normal 4.5-6.2 [facility] Comment on above: Performed By: #### R UBIGG #### [facility] [address] [place] [address] [address] Zari Butcher TYPE AND SCREENon 03-08-2022 TYPE AND SCREEN Negative Normal [facility] Comment on above: Performed By: #### T NS #### [facility] [address] [place] [address] Dr. Zari Butcher US PREG TVon 02-17-2022 [...] by: KIRSTEN MATA Date: 2022-02-17 10:28 Normal [facility] [place] [facility] PREG QUANT HCGon 01-25-2022 HCG QUANT 4078 mIU/mL Normal [facility] Comment on above: Performed By: #### R UBIGG #### [facility] [address] [place] [address] Dr. Zari Butcher HCG RANGE SEE BELOW Normal [facility] Comment on above: Result Comment: 5-50 0-1 WEEK 40-300 1-2 WEEKS 100-1,000 2-3 WEEKS 500-6,000 3-4 WEEKS 5,000-200,000 1-2 MONTHS 10,000-100,000 2-3 MONTHS 3,000-50,000 2ND TRIMESTER 1,000-50,000 3RD TRIMESTER Performed By: #### R UBIGG #### [facility] [address] [place] [address] Dr. Zari Caputo 04-18-2019 CNMORGAN Office Visit (BREANNE ) -------- PRUDENCIO MIN ([id number]) 1995 F Date Time Provider Department 04/18/19 9:00 AM MARIN BARTLETT During your visit today, we recorded the following information about you: Pulse Blood pressure Weight Height 87/minute 133/62 137 kg 1.562 m Marin Bartlett MD 04/18/2019 10:41 AM Signed OTONEUROLOGY CONSULTATION Referral source: nAdrea Vargas (Production Utility Worker), AP* Chief Complaint: Dizziness: Spinning vs swaying [...] the patient. Neck physical therapy: Sonia Clarkwalmeghann MA. Vestibular rehabilitation afterward. Migraine: - Start magnesium [...] the day. Went to talk to her sap manager as she did not feel well. 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 Ksae-xr-hqsy testing was normal bilaterally. Postural stability: Romberg: [...] [facility] T33 cc: Andrea Vargas ([facility]), EDITA Chen, * (sent via [employer] - to sec*) (Results of consultation to be transmitted via electronic medical record for those providers who practice within [facility] or with access to [employer] via [employer], or via letter) Total time of 81 minutes was spent with the patient regarding the above. Greater than 50% of time was spent on counselling. Referring Provider: ANDREA VARGAS (UTILITY SPECIALIST) [[id number]] Allergies As of Date: 04/18/2019 Noted Allergy Reaction AMOXICILLIN 2 - Rash PENICILLINS 06/30/2014 2 - Rash Date Reviewed: 04/18/2019 Reviewed by: Marin Bartlett - Fully Assessed Reason for Visit: Headache [...] Status:Closed by MARIN BARTLETT MD on 04/18/19 [facility] PROGRESSon 04-18-2019 PROGRESS HNO ID: [id number] Author: Marin Bartlett Service: ? Author Type: Physician Type: Progress Notes Filed: 04/18/2019 10:41 AM Note Text: OTONEUROLOGY CONSULTATION Referral source: Andrea Vargas (Production Utility Worker), AP* Chief Complaint: Dizziness: Spinning vs swaying [...] the day. Went to talk to her sap manager as she did not feel well. 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 Jyhy-jy-hxio testing was normal bilaterally. Postural stability: Romberg: [...] [facility] T33 cc: Andrea Vargas (Production Utility Worker), EDITA Chen, DO * (sent via [employer] - to sec*) (Results of consultation to be transmitted via electronic medical record for those providers who practice within [facility] or with access to [email or web address] via MD Connect, or via letter) Total time of 81 minutes was spent with the patient regarding the above. Greater than 50% of time was spent on counselling. Normal [facility] CNOVon 01-24-2019 CNOV Office Visit (NEADMN ) -------- PRUDENCIO MIN ([id number]) 1995 F Date Time Provider Department 01/24/19 8:45 AM ANDREA VARGAS (UTILITY SPECIALIST) NEADMN During your visit today, we recorded [...] seconds. Was eating prior to the event. Archie nauseated. Was tired after the event. Has [...] 5/5biceps, 5/5 wrist extension, and 5/5 hand branch customer service representative. Finger extensor 5/5. Finger flexor 5/5. Pronation [...] jerk and symmetric Coordination: Finger-to- nose-finger and elda-lj-kedf intact bilaterally. No ataxia of arms. No [...] with more than 50% of the total vhtt-bt-uerr time of the visit in counseling / coordination of care. There is no problem list on file for this patient. Office Visit on 01/24/19 - CONSULT TO NEUROLOGY Andrea Vargas MSN, GAS TURBINE POWERPLANT MECHANIC HELPER, INFANTRY WEAPONS OFFICER-C 1. This office note has been dictated [...] [R55] Order(s):CONSULT TO NEUROLOGY [9019] Order #: [id number]: 1 Prescriptions as of 01/24/2019 Sig: CITALOPRAM 20 MG TABLET daily IBUPROFEN 800 MG TABLET Take 800 mg by mouth as neede* ERGOCALCIFEROL (VITAMIN D2) 5* Take 50,000 Units by mouth on* Problem List As Of Date: 01/24/2019 (None) Encounter Status:Closed by ANDREA VARGAS on 01/24/19 Normal [facility] PROGRESSon 01-24-2019 PROGRESS HNO ID: [id number] Author: Andrea Edwards) Georgina Service: ? Author [...] seconds. Was eating prior to the event. Archie nauseated. Was tired after the event. Has [...] 5/5biceps, 5/5 wrist extension, and 5/5 hand branch customer service representative. Finger extensor 5/5. Finger flexor 5/5. Pronation [...] jerk and symmetric Coordination: Finger-to- nose-finger and wqya-qq-jwak intact bilaterally. No ataxia of arms. No [...] with more than 50% of the total kfyp-ia-xxrm time of the visit in counseling / coordination of care. There is no problem list on file for this patient. Office Visit on 01/24/19 - CONSULT TO NEUROLOGY Andrea Vargas MSN, GAS TURBINE POWERPLANT MECHANIC HELPER, INFANTRY WEAPONS OFFICER-C 1. This office note has been dictated [...] the discretion of your PCP/referring physician Normal [facility] CNOVon 12-24-2018 CNOV Office Visit (SYNCMN ) -------- PRUDENCIO MIN ([id number]) 1995 F Date Time Provider Department 12/24/18 [...] Finish Time: 1153 Referring Provider: ANDREA VARGAS ([facility]) [[id number]] Allergies As of Date: 12/24/2018 Noted Allergy Reaction AMOXICILLIN 2 - Rash PENICILLINS 06/30/2014 2 - Rash Date Reviewed: 12/24/2018 Reviewed by: Vince Ruano RN - Fully Assessed Primary Visit Diagnosis:Disorder of autonomic nervous system [G90.9] Other Visit Diagnoses:Orthostatic hypotension [I95.1] Orthostatic lightheadedness [R42] Tachycardia [R00.0] Order(s):INTERMITTENT PERIPHERAL DEVICE ([place], [place]) [3034448] Order #: [id number]: 1 SALINE LOCK DISCONTINUE [8347436] Order #: [id number]: 1 Prescriptions as of 12/24/2018 Sig: CITALOPRAM 20 MG TABLET daily IBUPROFEN 800 MG TABLET Take 800 mg by mouth as neede* ERGOCALCIFEROL (VITAMIN D2) 5* Take 50,000 Units by mouth on* Problem List As Of Date: 12/24/2018 (None) Encounter Status:Closed by VINCE RUANO RN on 12/24/18 [facility] OBSOLETEon 12-24-2018 OBSOLETE Procedure (NEAU) -------- PRUDENCIO MIN ([id number]) 1995 F Date Time Provider Department 12/24/18 9:15 AM AUTONOMIC 1 NEUR MAIN NEAU During your visit today, we recorded the following information about you: Referring Provider: ANDREA VARGAS ([facility]) [[id number]] Allergies As of Date: 12/24/2018 Noted Allergy [...] Status:Closed by WAYNE BLAIR MD on 12/25/18 [facility] OBSOLETE Procedure (NEAU) -------- PRUDENCIO MIN ([id number]) 1995 F Date Time Provider Department 12/24/18 7:45 AM AUTONOMIC 1 NEUR MAIN NEAU During your visit today, we recorded the following information about you: Referring Provider: ANDREA VARGAS ([facility]) [[id number]] Allergies As of Date: 12/24/2018 Noted Allergy [...] Status:Closed by WAYNE BLAIR MD on 12/25/18 [facility] PROGRESSon 12-24-2018 PROGRESS HNO ID: [id number] Author: Vince Ruano RN Service: ? Author [...] Leone RN Procedure Finish Time: 1153 Normal [facility] MIKE Panel 1on 11-29-2018 MIKE by EIA 0.4 OD Ratio Normal [facility] Comment on above: Result Comment: OD R atio is interpreted as follows: Negative <1.0 Positive >=1.0 Performed By: #### C MP, MMA, B12, COPPER, SEPG, CBC, ENAID, ANA1 #### [facility] [address] [place], [place] [address] #### B1VIT #### [facility] [address] [place] [address] [phone] MIKE by EIA, Qual Negative Normal Negative [facility] Comment on above: Performed By: #### C MP, MMA, B12, COPPER, SEPG, CBC, ENAID, ANA1 #### [facility] [address] [place], [place] [address] #### B1VIT #### [facility] [address] [place] [address] [phone] CBCon 11-29-2018 Absolute nRBC <0.01 Normal <0.01 [facility] Comment on above: Performed By: #### C MP, MMA, B12, COPPER, SEPG, CBC, ENAID, ANA1 #### [place] [phone] #### B1VIT #### [facility] [address] [place] [address] [phone] Erythrocyte distribution width (RBC) [Ratio] 14.4 % Normal 11.5-15.0 [facility] Comment on above: Performed By: #### C MP, MMA, B12, COPPER, SEPG, CBC, ENAID, ANA1 #### [place] [phone] #### B1VIT #### [facility] [address] [place] [address] [phone] Hematocrit (Bld) [Volume fraction] 40.5 % Normal 36.0-46.0 [facility] Comment on above: Performed By: #### C MP, MMA, B12, COPPER, SEPG, CBC, ENAID, ANA1 #### [place] [phone] #### B1VIT #### [facility] [address] [place] [address] [phone] Hemoglobin (Bld) [Mass/Vol] 12.6 g/dL Normal 11.5-15.5 [facility] Comment on above: Performed By: #### C MP, MMA, B12, COPPER, SEPG, CBC, ENAID, ANA1 #### [place] [phone] #### B1VIT #### [facility] [address] [place] [address] [phone] MCH (RBC) [Entitic mass] 25.7 pG Low 26.0-34.0 [facility] Comment on above: Performed By: #### C MP, MMA, B12, COPPER, SEPG, CBC, ENAID, ANA1 #### [place] [phone] #### B1VIT #### [facility] [address] [place] [phone] MCHC (RBC) [Mass/Vol] 31.1 g/dL Normal 30.5-36.0 [facility] Comment on above: Performed By: #### C MP, MMA, B12, COPPER, SEPG, CBC, ENAID, ANA1 #### [place] [phone] #### B1VIT #### [facility] [address] [place] [address] [phone] MCV (RBC) [Entitic vol] 82.7 fL Normal 80.0-100.0 [facility] Comment on above: Performed By: #### C MP, MMA, B12, COPPER, SEPG, CBC, ENAID, ANA1 #### [place] [phone] #### B1VIT #### [facility] [address] [place] [address] [phone] Platelet mean volume (Bld) [Entitic vol] 10.1 fL Normal 9.0-12.7 [facility] Comment on above: Performed By: #### C MP, MMA, B12, COPPER, SEPG, CBC, ENAID, ANA1 #### [place] [phone] #### B1VIT #### [facility] [address] [place] [phone] Platelets (Bld) [#/Vol] 352 10*3/uL Normal 150-400 [facility] Comment on above: Performed By: #### C MP, MMA, B12, COPPER, SEPG, CBC, ENAID, ANA1 #### [place] [phone] #### B1VIT #### [facility] [address] [place] [address] [phone] RBC (Bld) [#/Vol] 4.90 10*6/uL Normal 3.90-5.20 [facility] Comment on above: Performed By: #### C MP, MMA, B12, COPPER, SEPG, CBC, ENAID, ANA1 #### [facility] [address] [place] [phone] #### B1VIT #### [facility] [address] [place] [address] [phone] WBC (Bld) [#/Vol] 10.29 10*3/uL Normal 3.70-11.00 [facility] Comment on above: Performed By: #### C MP, MMA, B12, COPPER, SEPG, CBC, ENAID, ANA1 #### [facility] [address] [place] [phone] #### B1VIT #### [facility] [address] [place] [address] [phone] CNCOon 11-29-2018 CNCO Letter Text [facility] [address] [place] [id number] November 29, 2018 To whom it may concern, This letter confirms Prudencio Min was seen today in the [facility] November 29, 2018. Sincerely, Staff of [facility]. ELECTRONICALLY SIGNED. Normal [facility] CNOVon 11-29-2018 CNOV Office Visit (NEADMN ) -------- PRUDENCIO MIN ([id number]) 1995 F Date Time Provider Department 11/29/18 9:00 AM ANDREA VARGAS (ASHWIN) PIPER During your visit today, we recorded the following information about you: Pulse Respiration Blood pressure Weight 92/minute 18/minute 116/75 136.4 kg Height 1.575 m Andrea Vargas APRN.UTILITY SPECIALIST 11/29/2018 10:13 AM Signed Prudencio Min is a 23 year old female. Patient presents with: New Patient PMH: Appendectomy (2010), DANDC (March 2018), Anemic, Low Vitamin D, Anxiety Prduencio is a right handed female here today [...] was referred to cardiology and neurologist. The green building materials distributor did an EKG, echo and holter monitor and per the patient it was normal. I have no records today. The green building materials distributor wanted to do a tilt table test. The green building materials distributor from [facility] sent her to us at [facility]. EEG was done locally that was [...] 5/5biceps, 5/5 wrist extension, and 5/5 hand branch customer service representative. Finger extensor 5/5. Finger flexor 5/5. Pronation [...] of ankles. ? Coordination: Finger-to- nose-finger and acjb-ht-xwzk intact bilaterally. No ataxia of arms. No [...] with more than 50% of the total zqnr-jq-fxqe time of the visit in counseling / [...] ID -TILT TABLE EVALUATION Andrea Vargas MSN, GAS TURBINE POWERPLANT MECHANIC HELPER, INFANTRY WEAPONS OFFICER-C 1. This office note has been dictated [...] monitor, MRI, EEG reports. Fax number is [phone] POTS Manual: Read the POTS manual online. [...] Tachycardia [R00.0] Order(s):METHYLMALONIC ACID [SQMMA] Order #: [id number] FUTURE VITAMIN B12 BLOOD [SQB12] Order #: [id number] FUTURE COMP METABOLIC PANEL [SQCMP] Order #: [id number] FUTURE CBC [SQCBC] Order #: [id number] FUTURE VITAMIN B1/THIAMINE, WHOLE BLD [CTL2KMV] Order #: [id number] FUTURE COPPER BLOOD [SQCOPPER] Order #: [id number] FUTURE PROTEIN ELECTROPHORESIS W/INTERP [SQSEPG] Order #: [id number] FUTURE GANGLIONIC NACHR ANTIBODY [SQGNGLAB] Order #: [id number] FUTURE MIKE PANEL BLOOD SCRN [SQANA1] Order #: [id number] FUTURE ANTI GINNY ID [SQENAID] Order #: [id number] FUTURE NEURO CARDIO AUTONOMIC REFLEX W/WO TILT [1797645] Order #: [id number] TILT TABLE EVALUATION [83046RAR] Order #: [id number]: 1 NEURO QSART [2042427] Order #: [id number] [] acetylcholine 10% solution - cchs compoundingDisp: [...] monitor, MRI, EEG reports. Fax number is [phone] POTS Manual: Read the POTS manual online. This will help you understand your POTS diagnosis, work with your medical team, and includes detailed instructions and tips for improved daily living with POTS. [email or web address] Prescriptions ordered this encounter Disp Refills Start End ACETYLCHOLINE 10% SOLUTION - [facility] CO* 11/29/2018 12/24/2018 Route: IRRIGATION Encounter Status:Closed by ANDREA VARGAS on 11/29/18 Normal [facility] Comp Metabolic Panelon 11-29 Albumin [Mass/Vol] 3.7 g/dL Low 3.9-4.9 [facility] Comment on above: Performed By: #### C MP, MMA, B12, COPPER, SEPG, CBC, ENAID, ANA1 #### [facility] [address] [place] [phone] #### B1VIT #### [facility] [address] [place] [address] [phone] ALP [Catalytic activity/Vol] 90 U/L Normal 34-123 [facility] Comment on above: Performed By: #### C MP, MMA, B12, COPPER, SEPG, CBC, ENAID, ANA1 #### [place] [phone] #### B1VIT #### [facility] [address] [place] [address] [phone] ALT [Catalytic activity/Vol] 14 U/L Normal 7-38 [facility] Comment on above: Performed By: #### C MP, MMA, B12, COPPER, SEPG, CBC, ENAID, ANA1 #### [place] [phone] #### B1VIT #### [facility] [address] [place] [address] [phone] Anion gap [Moles/Vol] 15 mmol/L Normal 9-18 [facility] Comment on above: Performed By: #### C MP, MMA, B12, COPPER, SEPG, CBC, ENAID, ANA1 #### [place] [phone] #### B1VIT #### [facility] [address] [place] [address] [phone] AST [Catalytic activity/Vol] 13 U/L Normal 13-35 [facility] Comment on above: Performed By: #### C MP, MMA, B12, COPPER, SEPG, CBC, ENAID, ANA1 #### [place] [address] [place] [phone] #### B1VIT #### [facility] [address] [place] [address] [phone] Bilirubin [Mass/Vol] 0.2 mg/dL Normal 0.2-1.3 [facility] Comment on above: Performed By: #### C MP, MMA, B12, COPPER, SEPG, CBC, ENAID, ANA1 #### [place] [phone] #### B1VIT #### [facility] [address] [place] [address] [phone] Calcium [Mass/Vol] 9.3 mg/dL Normal 8.5-10.2 [facility] Comment on above: Performed By: #### C MP, MMA, B12, COPPER, SEPG, CBC, ENAID, ANA1 #### [place] [phone] #### B1VIT #### [facility] [address] [place] [address] [phone] Chloride [Moles/Vol] 102 mmol/L Normal 97-105 [facility] Comment on above: Performed By: #### C MP, MMA, B12, COPPER, SEPG, CBC, ENAID, ANA1 #### [place] [phone] #### B1VIT #### [facility] [address] [place] [address] [phone] CO2 [Moles/Vol] 23 mmol/L Normal 22-30 [facility] Comment on above: Performed By: #### C MP, MMA, B12, COPPER, SEPG, CBC, ENAID, ANA1 #### [place] [phone] #### B1VIT #### [facility] [address] [place] [address] [phone] Creatinine [Mass/Vol] 0.58 mg/dL Normal 0.58-0.96 [facility] Comment on above: Performed By: #### C MP, MMA, B12, COPPER, SEPG, CBC, ENAID, ANA1 #### [facility] [address] [place] [phone] #### B1VIT #### [facility] [address] [place] [address] [phone] eGFR- Amer. >60 Normal [facility] Comment on above: Performed By: #### C MP, MMA, B12, COPPER, SEPG, CBC, ENAID, ANA1 #### [place] [address] [phone] #### B1VIT #### [facility] [address] [place] [address] [phone] GFR/1.73 sq M predicted among non-blacks MDRD (S/P/Bld) [Vol rate/Area] mL/min/{1.73_m2} Normal [facility] Comment on above: Result Comment: eGFR (Estimated [...] B12, COPPER, SEPG, CBC, ENAID, ANA1 #### [facility] [place] [phone] #### B1VIT #### [facility] [address] [place] [address] [phone] Glucose [Mass/Vol] 78 mg/dL Normal 74-99 [facility] Comment on above: Result Comment: The [place] Diabetes Association (ADA) provides guidance for cutoff [...] Standards of Medical Care in Diabetes 2016, [place] Diabetes Association. Diabetes Care. 2016.39(Suppl 1). Performed By: #### C MP, MMA, B12, COPPER, SEPG, CBC, ENAID, ANA1 #### [place] [address] #### B1VIT #### [facility] [address] [place] [address] [phone] Potassium [Moles/Vol] 4.1 mmol/L Normal 3.7-5.1 [facility] Comment on above: Performed By: #### C MP, MMA, B12, COPPER, SEPG, CBC, ENAID, ANA1 #### [place] [address] #### B1VIT #### [facility] [address] [place] [address] [phone] Protein [Mass/Vol] 7.4 g/dL Normal 6.3-8.0 [facility] Comment on above: Performed By: #### C MP, MMA, B12, COPPER, SEPG, CBC, ENAID, ANA1 #### [place] [address] #### B1VIT #### [facility] [address] [place] [address] [phone] Sodium [Moles/Vol] 140 mmol/L Normal 136-144 [facility] Comment on above: Performed By: #### C MP, MMA, B12, COPPER, SEPG, CBC, ENAID, ANA1 #### [place] [phone] #### B1VIT #### [facility] [address] [place] [address] [phone] Urea nitrogen [Mass/Vol] 9 mg/dL Normal 7-21 [facility] Comment on above: Performed By: #### C MP, MMA, B12, COPPER, SEPG, CBC, ENAID, ANA1 #### [place] [address] #### B1VIT #### [facility] [address] [place] [address] [phone] Copperon 11-29-2018 Copper 117 ug/dL Normal 85-155 [facility] Comment on above: Result Comment: This test was developed and its performance characteristics determined by [facility] ([facility] It has not been cleared or approved by the FDA. [facility] is regulated under CLIA as qualified to perform high-complexity testing. This test is used for clinical purposes. It should not be regarded as investigational or for research. Performed By: #### C MP, MMA, B12, COPPER, SEPG, CBC, ENAID, ANA1 #### [place] [address] #### B1VIT #### [facility] [address] [place] [address] [phone] GINNY Antibody Panelon 019 Centromere <0.2 Normal <1.0 [facility] Comment on above: Result Comment: NEGA TIVE Negative: <1.0 AI Positive: >0.9 AI Performed By: #### C MP, MMA, B12, COPPER, SEPG, CBC, ENAID, ANA1 #### [place] [address] #### B1VIT #### [facility] [address] [place], [place] [id number] [phone] Chromatin Antibody <0.2 Normal <1.0 [facility] Comment on above: Result Comment: NEGA TIVE Negative: <1.0 AI Positive: >0.9 AI Performed By: #### C MP, MMA, B12, COPPER, SEPG, CBC, ENAID, ANA1 #### [place] [phone] #### B1VIT #### [facility] [address] [place] [address] [phone] OSWALDO 1 Antibody <0.2 Normal <1.0 [facility] Comment on above: Result Comment: NEGA TIVE Negative: <1.0 AI Positive: >0.9 AI Performed By: #### C MP, MMA, B12, COPPER, SEPG, CBC, ENAID, ANA1 #### [place] [phone] #### B1VIT #### [place] [address] [phone] Ribosomal SHEET METAL ASSEMBLER <0.2 Normal <1.0 [facility] Comment on above: Result Comment: NEGA TIVE Negative: <1.0 AI Positive: >0.9 AI Performed By: #### C MP, MMA, B12, COPPER, SEPG, CBC, ENAID, ANA1 #### [place] [phone] #### B1VIT #### [facility] [address] [place] [address] [phone] SHEET METAL ASSEMBLER Antibody <0.2 Normal <1.0 [facility] Comment on above: Result Comment: NEGA TIVE Negative: <1.0 AI Positive: >0.9 AI Performed By: #### C MP, MMA, B12, COPPER, SEPG, CBC, ENAID, ANA1 #### [place] [phone] #### B1VIT #### [facility] [address] [place] [address] [phone] Scleroderma IgG Ab <0.2 Normal <1.0 [facility] Comment on above: Result Comment: NEGA TIVE Negative: <1.0 AI Positive: >0.9 AI Performed By: #### C MP, MMA, B12, COPPER, SEPG, CBC, ENAID, ANA1 #### [place] [phone] #### B1VIT #### [facility] [address] [place] [address] [phone] Sm Antibody <0.2 Normal <1.0 [facility] Comment on above: Result Comment: NEGA TIVE Negative: <1.0 AI Positive: >0.9 AI Performed By: #### C MP, MMA, B12, COPPER, SEPG, CBC, ENAID, ANA1 #### [place] [phone] #### B1VIT #### [address] [address] [phone] SSA Antibody <0.2 Normal <1.0 [facility] Comment on above: Result Comment: NEGA TIVE Negative: <1.0 AI Positive: >0.9 AI Performed By: #### C MP, MMA, B12, COPPER, SEPG, CBC, ENAID, ANA1 #### [place] [phone] #### B1VIT #### [address] [address] [phone] SSB Antibody <0.2 Normal <1.0 [facility] Comment on above: Result Comment: NEGA TIVE Negative: <1.0 AI Positive: >0.9 AI Performed By: #### C MP, MMA, B12, COPPER, SEPG, CBC, ENAID, ANA1 #### [place] [phone] #### B1VIT #### [facility] [address] [address] [phone] Ganglionic nAChR Abon 2018 Ganglionic nAChR Ab [...] Recommendations: Health care providers, please contact the [employer] Client Services Department at if you wish to speak with a clinical databases software consultant regarding this test result. Other testing available: [employer] recommends additional testing, if not already performed. [employer] currently offers the following antibody tests: anti-Hu, anti-Yo, anti-Zic4, anti-CV2, anti-Ma1, anti-Ta, anti-Ri, anti-Recoverin, anti-VGCC, anti-VGKC, anti-Amphiphysin, anti-NMDA, anti-GAD65, anti-LGI1, and anti-CASPR2. Please contact the [employer] Client Services Department or visit [employer] for information regarding additional testing that may [...] al. (2006) Semin Oncol 33: 270-98. (PMID: 12828383) 2. Victorinar, MAGDALENA, et al. (2011) Eur J Neurol 18: 19-e3. (PMID: 33694319) 3. Joanna Cabrera et al. (2012) J Neurol Neurosurg Psychiatry 83: 638-45. (PMID: 72994566) 4. MR Maicol, et al. (2010) Oncologist 15: 603-17. (PMID: 52114011) 5. Carmelo Pena et al. (2008) Lancet Neurol 7: 327-40. (PMID: 08936478) 6. Carmelo Frederick et al. (2007) Orphanet J Rare Dis 2: 22. (PMID: 13558530) 7. Daquan Stokes et al. (2000) N Engl J Med 343: 847-55. (PMID: 63697266) This test was developed and its analytical performance characteristics have been determined by [employer] It has not been cleared or approved by the U.S. Food and Drug Administration. This assay has been validated pursuant to the CLIA regulations and is used for clinical purposes. Laboratory oversight provided by Vince Mcfarlane, Ph.D., [facility], CLIA license ma, [employer] (CLIA# [id number]) Testing performed at: [employer] [address] [place] [address] Performed By: #### C MP, MMA, B12, COPPER, SEPG, CBC, ENAID, ANA1 ####[facility] [address] [place], [place] [phone]#### B1VIT ####[facility] [address] [place], [place] [phone] Methylmalonic Acidon 019 Methylmalonic Acid 165 nmol/L Normal 79-376 [facility] Comment on above: Result Comment: This test was developed and its performance characteristics determined by [facility]'s [facility] ([facility]). It has not been cleared or approved by the FDA. [facility] is regulated under CLIA as qualified to perform high-complexity testing. This test is used for clinical purposes. It should not be regarded as investigational or for research. Performed By: #### C MP, MMA, B12, COPPER, SEPG, CBC, ENAID, ANA1 ####[facility] [address] [place], [place] [phone]#### B1VIT ####[facility] [address] [place], [place] [phone] PROGRESSon 11-29-2018 PROGRESS HNO ID: [id number] Author: Adnrea (Production Utility Worker) Georgina Service: (none) Author Type: Nurse Practitioner [...] was referred to cardiology and neurologist. The green building materials distributor did an EKG, echo and holter monitor and per the patient it was normal. I have no records today. The green building materials distributor wanted to do a tilt table test. The green building materials distributor from [facility] sent her to us at [facility]. EEG was done locally that was [...] 5/5biceps, 5/5 wrist extension, and 5/5 hand branch customer service representative. Finger extensor 5/5. Finger flexor 5/5. Pronation [...] of ankles. ? Coordination: Finger-to- nose-finger and yeyd-zz-setx intact bilaterally. No ataxia of arms. No [...] with more than 50% of the total veyp-wi-zhrn time of the visit in counseling / [...] ID -TILT TABLE EVALUATION Andrea Vargas MSN, [employer] POWERPLANT MECHANIC HELPER, INFANTRY WEAPONS OFFICER-C 1. This office note has been dictated [...] the discretion of your PCP/referring physician Normal [facility] Protein Electrophor.on 11-29 Albumin [Mass/Vol] 3.26 g/dL Low 3.37-4.23 [facility] Comment on above: Performed By: #### C MP, MMA, B12, COPPER, SEPG, CBC, ENAID, ANA1 ####[facility] [address] [place], [place] [phone]#### B1VIT ####[facility] [address] [place], [place] [phone] Alpha 1 Globulin 0.27 gm/dL Normal 0.18-0.31 [facility] Comment on above: Performed By: #### C MP, MMA, B12, COPPER, SEPG, CBC, ENAID, ANA1 ####[place] [phone]#### B1VIT ####[address] [phone] Alpha 2 Globulin 0.81 gm/dL Normal 0.52-0.97 [facility] Comment on above: Performed By: #### C MP, MMA, B12, COPPER, SEPG, CBC, ENAID, ANA1 ####[place] [phone]#### B1VIT ####[address] [phone] Beta Globulin 1.16 gm/dL Normal 0.84-1.36 [facility] Comment on above: Performed By: #### C MP, MMA, B12, COPPER, SEPG, CBC, ENAID, ANA1 ####[place] [phone]#### B1VIT ####[address] [phone] Gamma Globulin 1.50 gm/dL High 0.70-1.44 [facility] Comment on above: Performed By: #### C MP, MMA, B12, COPPER, SEPG, CBC, ENAID, ANA1 ####[place] [phone]#### B1VIT ####[address] [phone] Interpretation SEE COMMENT Normal [facility] Comment on above: Result Comment: No d efinitive M protein is identified on protein electrophoresis. Performed By: #### C MP, MMA, B12, COPPER, SEPG, CBC, ENAID, ANA1 ####[address] [phone]#### B1VIT ####[facility] [address] [place], [place] [phone] M Tigre Concentratn 0.00 gm/dL Normal 0.00 [facility] Comment on above: Performed By: #### C MP, MMA, B12, COPPER, SEPG, CBC, ENAID, ANA1 ####[address] [phone]#### B1VIT ####[address] [phone] Protein [Mass/Vol] 7.0 g/dL Normal 6.0-8.4 [facility] Comment on above: Performed By: #### C MP, MMA, B12, COPPER, SEPG, CBC, ENAID, ANA1 ####[address] [phone]#### B1VIT ####[address] [phone] Protein [Mass/Vol] N/A Normal [facility] Comment on above: Performed By: #### C MP, MMA, B12, COPPER, SEPG, CBC, ENAID, ANA1 ####[address] [phone]#### B1VIT ####[facility] [place], [place] [phone] SPE Staff Review Reviewed by Carrington Akers MD ([id number]) [facility] Comment on above: Performed By: #### C MP, MMA, B12, COPPER, SEPG, CBC, ENAID, ANA1 ####[address] [phone]#### B1VIT ####[facility] [address] [place], [place] [phone] Vitamin B1,Whole Bldon 11-29 Vitamin B1 Whole Bld 101 nmol/L Normal 70-180 [facility] Comment on above: Result Comment: (NOT E) INTERPRETIVE INFORMATION: Vitamin B1, Whole Blood This assay measures the concentration of thiamine diphosphate (TDP), the primary active form of vitamin B1. Approximately 90 percent of vitamin B1 present in whole blood is TDP. Thiamine and thiamine monophosphate, which comprise the remaining 10 percent, are not measured. Test developed and characteristics determined by [facility]. See Compliance Statement B: Seaters/CS Performed by [facility], [address] [place] [address] www.Seaters, Nam Andres MD, Lab. Director Performed By: #### C MP, MMA, B12, COPPER, SEPG, CBC, ENAID, ANA1 ####[facility] [place], [place] [phone]#### B1VIT ####[facility] [address] [place], [place] [phone] Vitamin B12on 11-29-2018 Cobalamin (Vitamin B12) [Mass/Vol] 419 pg/mL Normal 232-1245 [facility] Comment on above: Performed By: #### C MP, MMA, B12, COPPER, SEPG, CBC, ENAID, ANA1 #### [facility] [address] [place], [place] [address] #### B1VIT #### [facility] [address] [place] [address] [phone] Hemoglobin and Hematocriton 03-07-2018 Hematocrit (HCT) 38.5 % Normal 37.0-47.0 [facility] Hemoglobin mass conc (Bld) 12.7 g/dL Normal 12.0-16.0 [facility] Partial Thromboplastin Timeo n 03-07-2018 aPTT 28.6 s Normal 21.6-35.4 [facility] Comment on above: Result Comment: Hepa rin Therapeutic Range: 38.8 - 54.6 seconds. Prothrombin Timeon 8 INR Coag RelTime (PPP) 1.0 {INR} Normal [facility] Comment on above: Result Comment: Reji mmended [...] Coag time (PPP) 10.3 s Normal 9.6-12.3 [facility] Progesterone Quanton 018 Progesterone, hplc-ms/ms <0.10 Normal [facility] Comment on above: Result Comment: Fema les, [...] and/or gender-specific reference intervalsforthis test in the [employer] Laboratory Test Directory (Seaters).Test developed and characteristics determined by [facility]. SeeCompliance Statement B: Seaters/CSPerformed by [facility],[address] [place] [address] nnz.Seaters, Nam Andres MD - Lab. Director 17-Hydroxyprogesterone Qnt b y MS/MS, Seron 12-03-2017 17-Hydroxyprogesterone Quant, MS/MS, Ser 18.30 ng/dL Normal <=206.00 [facility] Comment on above: Result Comment: INTE RPRETIVE INFORMATION for 17-Hydroxyprogesterone in females:Follicular 15 to 70 ng/dLLuteal 35 to 290 ng/dLREFERENCE INTERVAL: 17-Hydroxyprogesterone Qnt, HPLC-MS/MSAccess complete set of age- and/or gender-specific reference intervalsforthis test in the [employer] Test Directory (Seaters).Test developed and characteristics determined by [facility]. SeeCompliance Statement B: Seaters/CSPerformed by [facility],[address] [place] [address] yyw.Seaters, Nam Andres MD - Lab. Director Testosterone Free and Total by LC-MS/MSon 12-03-2017 Sex Hormone Binding Globulin 19 nmol/L Low 30-135 [facility] Comment on above: Result Comment: REFE RENCE INTERVAL: Sex Hormone Binding GlobulinAccess complete set of age- and/or gender-specific reference intervalsforthis test in the [employer] Test Directory (Seaters). Testosterone, Free LC-MS/MS 6.2 pg/mL Normal 0.8-7.4 [facility] Comment on above: Result Comment: To c [...] and/or gender-specific reference intervalsforthis test in the [employer] Test Directory (Seaters).Test developed and characteristics determined by [facility]. SeeCompliance Statement B: Seaters/CSPerformed by [facility],[address] [place] [address] yfo.Seaters, Nam Andres MD - Lab. Director Testosterone, LC-MS/MS 29 ng/dL Normal 9-55 [facility] Comment on above: Result Comment: Tota l Testosterone, Females 18 years and older Premenopausal 9-55 ng/dL Postmenopausal 5-32 ng/dLREFERENCE INTERVAL: Testosterone, LC-MS/MSAccess complete set of age- and/or gender-specific reference intervalsforthis test in the [employer] Laboratory Test Directory (Seaters).Test developed and characteristics determined by [facility]. SeeCompliance Statement B: Seaters/ DHEA Sulfate, Serumon 2017 DHEAS 197 ug/dL Normal 65-380 [facility] Comment on above: Result Comment: REFE RENCE INTERVAL: DHEASAccess complete set of age- and/or gender-specific reference intervalsforthis test in the [employer] Laboratory Test Directory (Seaters).Performed by [facility],[address] [place] [address] fkm.Seaters, Nam Andres MD - Lab. Director CBC With Platelet and Differ entialon 11-28-2017 Basophils Auto #/vol (Bld) 0.1 10*3/uL Normal 0.0-0.2 [facility] Basophils/100 WBC Auto (Bld) 0.9 % Normal [facility] Eosinophils 0.3 10*3/uL Normal 0.0-0.7 [facility] Eosinophils/100 leukocytes 2.2 % Normal [facility] Erythrocyte distribution width Auto Ratio (RBC) 14.2 % Normal 11.5-14.5 [facility] Erythrocytes (RBC) 4.87 10*6/uL Normal 4.20-5.40 [facility] Hematocrit (HCT) 41.3 % Normal 37.0-47.0 [facility] Hemoglobin mass conc (Bld) 13.3 g/dL Normal 12.0-16.0 [facility] Lymphocytes 2.9 10*3/uL Normal 1.0-4.8 [facility] Lymphocytes/100 leukocytes 21.9 % Normal [facility] MCH 27.2 pg Normal 27.0-31.3 [facility] MCHC mass conc (RBC) 32.1 % Low 33.0-37.0 [facility] MCV 84.7 fL Normal 82.0-100.0 [facility] Monocytes 0.5 10*3/uL Normal 0.2-0.8 [facility] Monocytes/100 leukocytes 4.1 % Normal [facility] Neutrophils 9.4 10*3/uL Critically high 1.4-6.5 [facility] Neutrophils/100 leukocytes 70.9 % Normal [facility] Platelets 319 10*3/uL Normal 130-400 [facility] WBC (Leukocytes) 13.3 10*3/uL Critically high 4.8-10.8 M [facility] FSHon 11-28-2017 FSH 5.0 mIU/mL [facility] Comment on above: Result Comment: Expe cted ValuesNormally Menstruating FemalesFollicular Phase: 2.5 - 12.5 mIU/mLMid-Cycle Peak : 4.7 - 21.5 mIU/mLLuteal Phase: 1.7 - 7.7 mIU/mL Females: Less than 0.3mIU/mLPost Menopausal Females: 25.8 - 134.8 mIU/mLMales(13 - 70 years): 1.5 - 12.4 mIU/mL HCG Quanton 11-28-2017 HCG Quant <0.1 [facility] Comment on above: Result Comment: Gest ational Age Expected HCG values (mIU/ml) 3 weeks 5-72 4 weeks 10-708 5 weeks 217-8,245 6 weeks 152-32,177 8 weeks 31,366-149,094 12 weeks 27,107-201,615 16 weeks 8,904-55,332 18 weeks 9,649-55,271 Luteinizing Hormoneon 2017 Luteinizing Hormone 9.5 mIU/mL Normal [facility] Comment on above: Result Comment: Expe cted Values:Females: Follicular Phase: 2.4 - 12.6 mIU/mL Mid- Cycle Peak: 14.0 - 95.6 mIU/mL Luteal Phase: 1.0 - 11.4 mIU/mL Post Menopausal: 7.7 - 58.5 mIU/mLMales: 1.7 - 8.6 mIU/mL Prolactinon 11-28-2017 Prolactin 16.8 ng/mL Normal [facility] Comment on above: Result Comment: Defa ult Normal RangesFemale MaleNon: 4.8-23.3 4.0-15.2 TSH w/out Reflexon 8 Thyroid stimulating hormone (TSH) 2.390 uIU/mL Normal 0.270-4.20 [facility] Thyroxine Freeon 11-28-2017 Thyroxine Free 1.28 ng/dL Normal 0.93-1.70 [facility] Vital Signs Date Time Vital Sign Value Performing Clinician Facility 06-11-2024 09:44-0400 Body height 154.94 cm AUTUMN Cruz Work Phone: [facility] 06-11-2024 09:44-0400 Body mass index (BMI) [Ratio] 52.7 kg/m2 AUTUMN Cruz Work Phone: [facility] 06-11-2024 09:44-0400 Body temperature 98.4 [degF] AUTUMN Cruz Work Phone: [facility] 06-11-2024 09:44-0400 Body weight 126.55 kg AUTUMN Cruz Work Phone: [facility] 06-11-2024 09:44-0400 Diastolic blood pressure 71 mm[Hg] AUTUMN Cruz Work Phone: [facility] 06-11-2024 09:44-0400 Heart rate 79 /min AUTUMN Cruz Work Phone: [facility] 06-11-2024 09:44-0400 SaO2% (BldA) [Mass fraction] 95 % AUTUMN Cruz Work Phone: [facility] 06-11-2024 09:44-0400 Systolic blood pressure 101 mm[Hg] DNP Elizabeth Cruz Work Phone: [facility] 01-03-2024 11:32-0400 Body height 154.94 cm DNP Elizabeth Cruz Work Phone: [facility] 01-03-2024 11:32-0400 Body mass index (BMI) [Ratio] 53.5 kg/m2 DNP lEizabeth Cruz Work Phone: [facility] 01-03-2024 11:32-0400 Body weight 128.48 kg DNP Elizabeth Cruz Work Phone: [facility] 01-03-2024 11:32-0400 Diastolic blood pressure 78 mm[Hg] DNP Elizabeth Cruz Work Phone: [facility] 01-03-2024 11:32-0400 Heart rate 94 /min DNP Elizabeth Cruz Work Phone: [facility] 01-03-2024 11:32-0400 SaO2% (BldA) [Mass fraction] 98 % DNP Elizabeth Cruz Work Phone: [facility] 01-03-2024 11:32-0400 Systolic blood pressure 118 mm[Hg] DNP Elizabeth Stewartle Work Phone: [facility] 12-19-2023 12:49-0400 Blood Pressure Location ALEXEI SON [facility] 12-19-2023 12:49-0400 Body temperature 100.22 [degF] ALEXEI SON [facility] 12-19-2023 12:49-0400 Diastolic blood pressure 76 mm[Hg] ALEXEI SON [facility] 12-19-2023 12:49-0400 Heart rate 120 /min ALEXEI SON [facility] 12-19-2023 12:49-0400 SaO2% (BldA) [Mass fraction] 97 % ALEXEI HUY [facility] 12-19-2023 12:49-0400 Systolic blood pressure 122 mm[Hg] DUNCANS MILLS HUY [facility] 12-04-2023 14:06-0500 Body height 154.94 cm DNP Elizabeth Kaple Work Phone: [facility] 12-04-2023 14:06-0500 Body mass index (BMI) [Ratio] 53.9 kg/m2 DNP Elizabeth Kaple Work Phone: [facility] 12-04-2023 14:06-0500 Body weight 129.47 kg DNP Elizabeth Kaple Work Phone: [facility] 12-04-2023 14:06-0500 Diastolic blood pressure 70 mm[Hg] DNP Elizabeth Kaple Work Phone: [facility] 12-04-2023 14:06-0500 Heart rate 95 /min DNP Elizabeth Kaple Work Phone: [facility] 12-04-2023 14:06-0500 Respiratory rate 18 /min DNP Elizabeth Kaple Work Phone: [facility] 12-04-2023 14:06-0500 SaO2% (BldA) [Mass fraction] 97 % DNP Elizabeth Kaple Work Phone: [facility] 12-04-2023 14:06-0500 Systolic blood pressure 110 mm[Hg] DNP Elizabeth Kaple Work Phone: [facility] 05-18-2023 20:45-0400 Diastolic blood pressure 79 mm[Hg] Mirza Walton CNP Work Phone: [facility] 05-18-2023 20:45-0400 Heart rate 88 /min Mirza Walton CNP Work Phone: [facility] 05-18-2023 20:45-0400 Respiratory rate 21 /min Mirza Walton CNP Work Phone: [facility] 05-18-2023 20:45-0400 SaO2% (BldA) [Mass fraction] 99 % Mirza Walton CNP Work Phone: [facility] 05-18-2023 20:45-0400 Systolic blood pressure 135 mm[Hg] Mirza Walton CNP Work Phone: [facility] 05-18-2023 19:50-0400 Body height 154.9 cm Mirza Walton CNP Work Phone: [facility] 05-18-2023 19:50-0400 Body mass index (BMI) [Ratio] 47.61 kg/m2 Mirza Walton CNP Work Phone: [facility] 05-18-2023 19:50-0400 Body temperature 98.2 [degF] Mirza Walton CNP Work Phone: [facility] 05-18-2023 19:50-0400 Body weight 114.31 kg Mirza Walton CNP Work Phone: [facility] 04-14-2023 13:36-0400 Body temperature 97.7 [degF] Barak Greer [facility] 04-14-2023 13:36-0400 Diastolic blood pressure 82 mm[Hg] Barak Zoey [facility] 04-14-2023 13:36-0400 Heart rate 79 /min Barak Greer [facility] 04-14-2023 13:36-0400 Respiratory rate 18 /min Barak Greer [facility] 04-14-2023 13:36-0400 SaO2% (BldA) [Mass fraction] 98 % Barak Greer [facility] 04-14-2023 13:36-0400 Systolic blood pressure 119 mm[Hg] Barak Greer [facility] 05-06-2022 02:27-0400 Diastolic blood pressure 74 mm[Hg] Kaylinn Dokken [facility] 05-06-2022 02:27-0400 Heart rate 85 /min Kaylinn Dokken [facility] 05-06-2022 02:27-0400 Mean blood pressure 93 mm[Hg] Kaylinn Dokken [facility] 05-06-2022 02:27-0400 Systolic blood pressure 130 mm[Hg] Kaylinn Dokken [facility] 05-06-2022 00:59-0400 Body temperature 97.88 [degF] Kaylinn Dokken [facility] 05-06-2022 00:59-0400 Diastolic blood pressure 83 mm[Hg] Kaylinn Dokken [facility] 05-06-2022 00:59-0400 Heart rate 103 /min Kaylinn Dokken [facility] 05-06-2022 00:59-0400 Respiratory rate 20 /min Kaylinn Dokken [facility] 05-06-2022 00:59-0400 SaO2% (BldA) [Mass fraction] 98 % Kaylinn Dokken [facility] 05-06-2022 00:59-0400 Systolic blood pressure 120 mm[Hg] Tiffanie Dukes [facility] Encounters Encounter Date Encounter Type Care Provider Facility Start: 06-11-2024 End: 06-11-2024 ambulatory DNP Elizabeth Cruz Work Phone: [facility] Work Phone: Start: 06-11-2024 End: 06-11-2024 Patient encounter procedure DNP Elizabeth Cruz Work Phone: [facility] [place] Work Phone: Start: 02-26-2024 End: 02-26-2024 ambulatory MARK NARCISA Not Available Start: 01-03-2024 End: 01-03-2024 ambulatory DNP Elizabeth Cruz Work Phone: [facility] Work Phone: Start: 01-03-2024 End: 01-03-2024 Patient encounter procedure DNP Elizabeth Curz Work Phone: [facility] [place] Work Phone: Start: 12-28-2023 End: 12-28-2023 Patient encounter procedure DNP Elizabeth Cruz Work Phone: [facility] Start: 12-28-2023 End: 12-28-2023 ambulatory DNP Elizabeth Cruz Work Phone: [facility] Work Phone: Start: 12-19-2023 End: 12-20-2023 ambulatory [facility] Facility:[facility] Start: 12-19-2023 End: 12-19-2023 Lab Drop off [facility] Start: 12-19-2023 End: 12-20-2023 ambulatory ALEXEI JAYZ Facility:[facility] Start: 12-19-2023 End: 12-19-2023 Patient encounter procedure ALEXEI SON [facility] Start: 12-04-2023 End: 12-04-2023 Patient encounter procedure DNP Elizabeth Cruz Work Phone: [facility] [place] Work Phone: Start: 05-28-2023 End: 05-28-2023 ambulatory ELSA SCOTT [facility] Start: 05-24-2023 End: 05-24-2023 Subsequent hospital visit by physician Phone Pre Admission Testing [facility] Pre-Admission Testing Comment on above: No Show Start: 05-18-2023 End: 05-19-2023 [facility] Start: 05-18-2023 End: 05-18-2023 Emergency department patient visit Mirza 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 HELPER - UTILITY SPECIALIST Work Phone: 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 Facility:[facility] Start: 11-09-2022 End: 11-09-[address] MARK ROSALES . Facility:[facility] Start: 11-08-2022 Encounter for preprocedural laboratory examination DR MARK ROSALES . [facility] Start: 11-07-2022 End: 11-08-[address] MARK ROSALES . Facility:[facility] Start: 11-07-2022 End: 11-08-2022 Encounter for preprocedural laboratory examination DR MARK ROSALES . Facility:[facility] Start: 11-01-2022 Encounter for other preprocedural examination DR MARK ROSALES . [facility] Start: 10-30-2022 End: 10-31-2022 ambulatory LEA [...] 05-06-2022 Emergency department patient visit Tiffanie Dukes [facility] Start: 04-01-2022 End: 04-01-2022 ambulatory NONE LISTED REQUEST Facility: Start: 03-08-2022 End: 03-09-[address] MARK ROSALES . Facility:[facility] Start: 02-17-2022 End: 02-18-[address] MARK ROSALES . Facility:[facility] Start: 01-25-2022 End: 01-26-[address] MARK ROSALES . Facility: Start: 03-14-2018 End: 04-13-2018 Preoperative state Mirza Walton CNP Work Phone: [facility] Procedures Date Procedure Procedure Detail Performing [...] - Tdap) DTaP/Tdap/Td vaccine (2 - Tdap) [facility] Start: 06-11-2024 Radiologic examinati on of knee XR knee LT 4V* [facility] Start: 06-11-2024 XR Knee - left 4 Views [facility] Start: 12-04-2023 Patient referral [facility] Work Phone: Start: 05-08-2023 Influenza vaccination Flu vaccine (# 1) [facility] Start: 01-24-2021 Screening for malign ant neoplasm of cervix Pap smear [facility] Start: 2012 DTaP/Tdap/Td vaccine (1 - Tdap) DTaP/Tdap/Td vaccine (1 - Tdap) [facility] Start: 2011 Hepatitis C screening Hepatitis C sc reen [facility] Start: 2008 HIV screening HIV screen [facility] Start: 2005 Depression Screen Depression Screen [facility] Start: 1994 Varicella vaccine (1 of 2 - 2-dose childhood series) Varicella vaccine (1 of 2 - 2-dose childhood series) [facility] Start: 01-10-1994 COVID-19 Vaccine (#1) COVID-19 Vacci ne (#1) [facility] End: 05-18-2023 Ct abdomen & pelvis w/contrast material [facility] Work Phone: Comment on above: Once for 1 Occurrenc es starting 05/18/2023 until 05/18/2023 EKG 12 Lead EKG 12 Lead ECG Routine 05/18/2023 8:05 PM EDT [facility] Patient referral [facility] Work Phone: Immunizations Immunization Date Immunization Notes Care Provider Fa cility NEGATED: Highlighted row has not occurred!12-19-2023 influenza virus vaccine, unspecified formulation ALEXEI SON [facility] NEGATED: Highlighted row has not occurred!12-19-2023 SARS-CoV-2 mRNA (totheodoranameran 5y-11y) vaccine ALEXEI SON [facility] NEGATED: Highlighted row has not occurred!12-01-2019 influenza virus vaccine, live, attenuated, for intranasal use Tiffanie Dukes [facility] Payers Date Payer Category Payer Self-pay [id number] 2023 Worker's Compensation [id number] 1993 Unknown [id number] 2.16.84 0.1.753094.3.579.2.593 1993 Unknown [id number] 2.16.84 0.1.314553.3.579.2.593 1993 Unknown [id number] 2.16.84 0.1.882243.3.579.2.593 1993 Unknown [id number] 2.16.84 0.1.959403.3.579.2.593 1993 Unknown [id number] 2.16.84 0.1.380490.3.579.2.593 1993 Unknown [id number] 2.16.84 0.1.790979.3.579.2.593 1993 Unknown [id number] 2.16.84 0.1.969998.3.579.2.593 1993 Unknown [id number] 2.16.84 0.1.712151.3.579.2.593 1993 Unknown [id number] 2.16.84 0.1.400841.3.579.2.593 1993 Unknown [id number] 2.16.84 0.1.095898.3.579.2.593 1993 Unknown [id number] 2.16.84 0.1.717490.3.579.2.593 1993 Unknown [id number] 2.16.84 0.1.740736.3.579.2.593 1993 Unknown [id number] 2.16.84 0.1.929229.3.579.2.593 1993 Unknown [id number] 2.16.84 0.1.575853.3.579.2.593 1993 Unknown [id number] 2.16.84 0.1.724675.3.579.2.593 1993 Unknown [id number] 2.16.84 0.1.597250.3.579.2.593 1993 Unknown [id number] 2.16.84 0.1.262089.3.579.2.593 1993 Unknown [id number] 2.16.84 0.1.060897.3.579.2.593 1993 Unknown [id number] 2.16.84 0.1.298523.3.579.2.593 1993 Unknown [id number] 2.16.8 40.1.676584.3.579.2.182 1993 Unknown [id number] 2.16.8 40.1.232047.3.579.2.182 1993 Unknown [id number] 2.16.8 40.1.169770.3.579.2.727 1993 Unknown [id number] 2.16.8 40.1.337555.3.579.2.727 1993 Unknown [id number] 2.16.8 [id number] 1993 Unknown [id number] 2.16.8 [id number] 1993 Unknown [id number] 2.16.8 [id number] 1993 Unknown [id number] 2.16.84 [id number] 1959 Self-pay [id number] 1959 Unknown [id number] 1959 Unknown [id number] Unknown [id number] Unknown [id number] 2.16.8 [id number] Unknown [id number] 2.16.8 [id number] Social History Date Type Detail Facility Start: 01-03-2022 End: 12-19-2023 Tobacco smoking status Ex-smoker (finding) [facility] Tobacco smoking status Never [facility] Sex Assigned At Female [facility] Start: 10-08-2014 End: 10-08-2015 History of tobacco use [facility] Start: 10-08-2014 End: 10-08-2015 History of tobacco use Cigarette Smoker [facility] Start: 03-12-2018 End: 05-22-2023 Cigarettes smoked current (pack per day) - Reported 0.3 [facility] Start: 03-12-2018 End: 05-22-2023 Tobacco use and exposure Smokeless tobacco non-user [facility] Start: 05-18-2023 End: 05-24-2023 Alcohol intake Current non-drinker of alcohol (finding) [facility] Start: 03-12-2018 End: 05-22-2023 Tobacco Comment quit 2016 [facility] Start: 1995 Sex Assigned At Not on file B ON [facility] Start: 12-04-2023 [facility] Start: 1995 Sex Assigned At Female [facility] Functional Status Date Assessment Result Facility 12-19-2023 Functional Status N/A [facility] 04-14-2023 Functional Status N/A [facility] 05-06-2022 Functional Status N/A [facility] Clinical Notes 05-06-2022 to 12-19-2023 Antoinette [...] numbers. This can be done either in [place] ([place] or metric measurements. Note that charts and online BMI calculators are available to help you find your BMI quickly and easily without having to do these calculations yourself. To calculate your BMI in [place] measurements: 1.Measure your weight in pounds [...] Centers for Disease Control and Prevention: www.cdc.gov [place] Heart Association: www.heart.org National Heart, Lung, and Blood Gem: www.nhlbi.nih.gov Summary Body mass index (BMI) is a number that is calculated from a person's weight and height. BMI may help estimate how much of a person's weight is composed of fat. BMI can help identify those who may be at higher risk for certain medical problems. BMI can be measured using [place] measurements or metric measurements. BMI charts are used to identify whether you are underweight, normal weight, overweight, or obese. This information is not intended to replace advice given to you by your health care provider. Make sure you discuss any questions you have with your health care provider. Document Revised: 06/16/2020 Document Reviewed: 04/23/2020 [employer] Patient Education 2022 [employer]. 12/19/2023 13:21:18 Otitis Media, Adult, Tppf-tq-Wjbj Otitis Media, Adult Otitis media is a [...] pain. Follow these instructions at home: Take hvpt-vjh-fdiizgw and prescription medicines only as told by [...] provider. Document Revised: 01/02/2022 Document Reviewed: 01/02/2022 [employer] Patient Education 2022 [employer]. 12/19/2023 13:21:15 Pharyngitis, Gyaj-ov-Vwky Pharyngitis Pharyngitis is a sore throat (pharynx). 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 Do not touch your eyes, nose, or [...] provider. Document Revised: 12/21/2021 Document Reviewed: 12/21/2021 [employer] Patient Education 2022 [employer]. Follow Up Care 12/19/2023 11:23:19 With:ELIZABETH CRUZ CNP Address: [place] [address]- When: Unknown [facility] 12-19-2023 Evaluation + Plan note Diagnostic Tests PendingGroup A Strep by PCR 12/19/23 [facility] 05-24-2023 History of Presen t illness Narrative PAT call placed to patient, reviewing meds, history, allergies PAT instruction sheet. documented in this encounter [facility] 04-14-2023 Hospital Discharg e instructions Patient [...] are safe for you. General instructions Take hjwz-tai-oqdnnbh and prescription medicines only as told by [...] provider. Document Revised: 01/31/2021 Document Reviewed: 01/31/2021 [employer] Patient Education 2022 [employer]. 04/14/2023 14:12:18 RICE Therapy for Routine Care [...] your activities and whether you should start akxpg-hv-mozizm exercises for your injury. Ice Ice your [...] provider. Document Revised: 11/29/2020 Document Reviewed: 06/14/2018 [employer] Patient Education 2020 [employer]. Follow Up Care 04/14/2023 13:31:33 With:[facility] Address: [address] [place] [phone] Business (1) When:04/17/2023 14:10:40 With:Carol Gutierrez Address: [address] [place] [address], [address] [place] [phone] Business (1) When:Within 3 Day(s) [facility] 04-14-2023 Evaluation + Plan note Extrac carie from: Title:ED Note Author:Anton Waldrop PA-C te:04/14/23 Wrist sprain (S63.509A: Unsp ecified sprain of unspecified wrist, initial encounter) Orders: XR Wrist 3+ Views Left [facility]02-02-2023 NoteOP Note OPERATION DATE: 11/09/2022 PROCEDURE: Bilateral laparoscopic salpingectomy. PREOPERATIVE DIAGNOSIS: Multiparity, request for sterilization. POSTOPERATIVE DIAGNOSIS: Multiparity, request for sterilization. ANESTHESIA: General. SURGEON: Mark Rosales D.O. WOOD COATER: JAMES Sheets URINE OUTPUT: Yellow and clear. [...] lap and needle counts were correct x2.[facility] 11-09-2022 NoteOPERATIVE NOTE OPERATION DATE: 12/02/2022 PROCEDURE: Bilateral laparoscopic salpingectomy. PREOPERATIVE DIAGNOSIS: Multiparity, request for sterilization. POSTOPERATIVE DIAGNOSIS: Multiparity, request for sterilization. ANESTHESIA: General. SURGEON: Mark Rosales D.O. WOOD COATER: JAMES Sheets URINE OUTPUT: Yellow and clear. [...] lap and needle counts were correct x2.[facility] 09-18-2022 NoteDISCHARGE SUMMARY DISCHARGE DATE: 10/02/2022 [...] pain free and no longer on narcotics.[facility] [id number] NoteDISCHARGE DATE: 09/20/2022 PRIMARY DIAGNOSES: 1. Intrauterine [...] pain free and no longer on narcotics.[facility] [id number] NoteOPERATIVE NOTE OPERATION DATE: 09/18/2022 PROCEDURE: Repeat low transverse section. PREOPERATIVE DIAGNOSIS: 1. Intrauterine at 39 weeks. 2. Morbid obesity. 3. Previous . POSTOPERATIVE DIAGNOSIS: 1. Intrauterine at 39 weeks. 2. Morbid obesity. 3. Previous . ANESTHESIA: Spinal with Duramorph. SURGEON: Mark Rosales D.O. WOOD COATER: JAMES URINE OUTPUT: Yellow and clear. BLOOD [...] to the Recovery Room in stable condition.[facility] [id number] Evaluation + Plan noteExtracted from: Title:ED Note [...] [facility]) 01/03/22 [facility]07-30-2022 Hospital Discharge instructions Patient Education 05/06/2022 02:32:57 Urinary Tract Infection, Adult, Laua-eh-Whyv Urinary Tract Infection, Adult A urinary tract [...] Follow these instructions at home: Medicines Take ihmw-hle-rzpaihl and prescription medicines only as told by [...] 03/12/2009 Document Revised: 09/11/2019 Document Reviewed: 04/03/2019 [employer] Patient Education 2020 [employer]. 05/06/2022 02:32:57 Abdominal Pain During , Ltbs-fe-Dzch Abdominal Pain During Belly (abdominal) pain is [...] keep your pee (urine) pale yellow. Take wfal-aun-wlitxor and prescription medicines only as told by [...] 09/12/2010 Document Revised: 01/12/2020 Document Reviewed: 12/27/2017 [employer] Patient Education 2020 [employer]. Follow Up Care 05/06/2022 00:57:48 With:Shanique Loomis Address: [address] [place] [phone] When:05/09/2022 Comments:Take the antibiotics as prescribed you have completed the course. You can use the nausea medicationevery 6 hours as needed for nausea and vomiting. Take the Pepcid daily for the next 10 days. 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 Pleasereturn the ED for any new or worsening symptoms. [facility] Diagnosis Calculus of gallbladder without cholecystitis without obstruction- Primary Calculus of gallbladder without mention of cholecystitis or obstruction [facility] Diagnosis Onset Date Resolution Status BMI 50.0-59.9, adult acute QASIM (generalized anxiety disorder) acute MDD (major depressive disorder) acute Obesity, morbid, BMI 50 or higher [facility] Work Phone: Evaluation note* Diagnosis Onset Date Resolution Status BMI 50.0-59.9, adult acute QASIM (generalized anxiety disorder) acute MDD (major depressive disorder) acute Obesity, morbid, BMI 50 or higher acute BMI 50.0-59.9, adult acute QASIM (generalized anxiety disorder) acute MDD (major depressive disorder) acute Obesity, morbid, BMI 50 or higher acute [facility] Work Phone: Evaluation note* Diagnosis Onset Date Resolution Status Knee pain, left noneactive [facility] Work Phone: Evaluation note* Diagnosis Onset Date Resolution Status Left knee sprain noneactive Knee pain, left noneactive [facility] Work Phone: Hospital course Narrative No data available for this section [facility]* Attachments The following attachments cannot be sent through Care Everywhere. * Gallstones ([place]) [facility] No data available for this section [facility] No data available for this section [facility] Summary Purpose Family History No Family History [...] section and content) DATE CREATED AUTHOR 03/27/2018 [facility] DATE CREATED AUTHOR AUTHOR'S ORGANIZ ATION 04/28/2019 [facility] DATE CREATED AUTHOR AUTHOR'S ORGANIZ ATION [facility]/14/2022 [facility] DATE CREATED AUTHOR AUTHOR'S ORGANIZ ATION 05/31/2023 [facility] DATE CREATED AUTHOR AUTHOR'S ORGANIZ ATION 12/20/2023 [facility] DATE CREATED AUTHOR AUTHOR'S ORGANIZ ATION 02/28/2024 [facility] DATE CREATED AUTHOR AUTHOR'S ORGANIZ ATION 06/12/2024 [facility] Care Team (unrecognized sect ion and content) Computer 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 2017 (Given - Provid er: Chritsal Cortez RN) famotidine (PEPCID) 20 mg in sodium chloride (PF) 0.9 % 10 mL injection (COMPLETED) 20 mg, IntraVENous, ONCE, 1 dose, On Sun05/18/23 at 1956, IV Push over minimum of 2 minutes - Dilute with 10 mL NS 2013 (Given - Provid er: Christal Cortze RN) ketorolac (TORADOL) injection 30 mg (COMPLETED) [...] BE BASED ON THE PRIMARY CLINICAL RECORDS. [facility] [employer] [facility]. provides no warranty or guarantee of the accuracy or completeness of information in this document.
[2024-08-01 07:46] LABS: Basophils Percent Auto 0.5 % (0.2-2.0); Eosinophils Absolute Auto 0.3 10^3/uL (0.0-0.7); Eosinophils Percent Auto 3.5 % (0.9-7.0); Hematocrit 41.9 % (36.0-48.0); Hemoglobin 13.3 g/dL (12.0-16.0); Immature Granulocytes Abs Auto 0.01 10^3/uL (0.00-0.03); Immature Granulocytes Pct Auto 0.1 % (0.0-0.5); Lymphocytes Absolute Auto 2.6 10^3/uL (1.2-3.8); Lymphocytes Percent Auto 31.1 % (20.5-60.0); Mean Corpuscular HGB Conc 31.7 g/dL (29.9-35.2); Mean Corpuscular Hemoglobin 27.1 pg (26.7-34.0); Mean Corpuscular Volume 85.3 fL (81.0-99.0); Mean Platelet Volume 10.1 fL (9.5-13.5); Monocytes Absolute Auto 0.6 10^3/uL (0.3-0.8); Monocytes Percent Auto 6.9 % (1.7-12.0); Neutrophils Absolute Auto 4.8 10^3/uL (1.4-6.5); Neutrophils Percent Auto 57.9 % (43.0-75.0); Platelet Count 288 10^3/uL (150-450); Red Blood Count 4.91 10^6/uL (4.20-5.40); Red Cell Distribution Width 13.2 % (11.0-15.0); White Blood Count 8.2 10^3/uL (4.0-11.0)
[2024-08-01 08:29] LABS: Estimated Average Glucose 100 mg/dL; Glycohemoglobin A1C 5.1 % (4.5-6.2)
[2024-08-01 08:37] LABS: Alanine Aminotransferase 24 U/L (14-59); Albumin Globulin Ratio 0.8; Albumin Level 3.3 g/dL (3.4-5.0); Alkaline Phosphatase 84 U/L (46-116); Anion Gap 14.3; Aspartate Amino Transferase 16 U/L (15-37); BUN Creatinine Ratio 15.5; Bilirubin Total 0.4 mg/dL (0.2-1.0); Calcium 9.2 mg/dL (8.5-10.1); Carbon Dioxide 26.5 mmol/L (21.0-32.0); Chloride 105 mmol/L (98-107); Chol HDL Ratio 4.3; Cholesterol 166 mg/dL (<=200); Estimated GFR (African America >60 (>=60 mL/min/1.73m^2); Estimated GFR (Non-African Ame >60 (>=60 mL/min/1.73m^2); Free T3 2.88 pg/mL (2.18-3.98); Globulin 4.2 g/dL; Glucose 87 mg/dL (74-106); HDL Cholesterol 39 mg/dL (40-60); Potassium 3.8 mmol/L (3.5-5.1); Sodium 142 mmol/L (136-145); Thyroid Stimulating Hormone 2.667 uIU/mL (0.358-3.740); Total Protein 7.5 g/dL (6.4-8.2); Triglycerides 128 mg/dL (<=150); VLDL CHOLESTEROL 25.6 mg/dL
[2024-08-02 10:08] LABS: Insulin 14.9 uIU/mL (2.6-24.9)
== END 2024-08-01 07:25 | disposition home or self-care (01) ==
LOC: LAB 07:24
PROVIDERS: PCP Family Medicine; Visit Provider Family Medicine
DX: Z00.00 Encounter for general adult medical examination without abnormal findings (principal)
CPT/HCPCS: 36415; 80053; 80061; 83036; 83525; 83540; 84436; 84443; 84481; 85025

== ENCOUNTER 2025-03-05 20:35 | Outpatient (REF) | payer BC, SELFPAY ==
--- OUTSIDE RECORDS SUMMARY | 2025-03-05 20:40 | XMS_ITS | CCD ---
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 Guard Supervisor Name Role Phone Shanique Roman Primary Care Physician Unavail able CONNIE ., DR MAGAÑA Admitting Unavailable CONNIE ., DR MAGAÑA Attending Unavailable REQUEST, DR NONE LISTED Primary Care Unavaila ble CONNIE ., DR MAGAÑA Consulting Unavailable ZIEBER, DR ALEE Badillo Consulting Unavailable CONNIE ., DR MAGAÑA Consulting Unavailable REQUEST, NONE LISTED Primary Care Unavaila ble CONNIE ., DR MAGAÑA Attending Unavailable CONNIE ., DR MAGAÑA Admitting Unavailable CONNIE ., DR MAGAÑA Admitting Unavailable CONNIE ., DR MAGAÑA Attending Unavailable REQUEST, DR NONE LISTED Primary Care Unavaila ble CONNIE ., DR MAGAÑA Consulting Unavailable ZIEBER, DR ALEE Badillo Consulting Unavailable KARASIK ., DR MOROCHO Consulting Unavailabl e REQUEST, NONE LISTED Primary Care Unavaila ble EUSEBIO SARABIA Attending Unavailable EUSEBIO SARABIA Admitting Unavailable RICHLAND, DR KIRSTEN Alvarado Consulting Unavailable CONNIE ., DR MAGAÑA Consulting Unavailable EUSEBIO SARABIA Consulting Unavailable TRIANA, LEA Consulting Unavailable REQUEST, DR NONE LISTED Primary Care Unavaila ble CONNIE ., DR MAGAÑA Attending Unavailable CONNIE ., DR MAGAÑA Admitting Unavailable CONNIE ., DR MAGAÑA Consulting Unavailable CONNIE ., DR MAGAÑA Attending Unavailable CONNIE ., DR MAGAÑA Admitting Unavailable REQUEST, DR NONE LISTED Primary Care Unavaila ble EMILIANO TARANGO Consulting Unavailable PAY ., DR NAVARRO Consulting Unavailable PAY ., DR NAVARRO Attending Unavailable PAY ., DR NAVARRO Admitting Unavailable REQUEST, NONE LISTED Primary Care Unavaila ble CONNIE ., DR MAGAÑA Admitting Unavailable CONNIE ., DR MAGAÑA Attending Unavailable REQUEST, DR NONE LISTED Primary Care Unavaila ble CONNIE ., DR MAGAÑA Consulting Unavailable CONNIE ., DR MAGAÑA Admitting Unavailable CONNIE ., DR MAGAÑA Attending Unavailable REQUEST, DR NONE LISTED Primary Care Unavaila ble CONNIE ., DR MAGAÑA Consulting Unavailable ZIEBER, DR ALEE Badillo Consulting Unavailable CONNIE ., DR MAGAÑA Admitting Unavailable CONNIE ., DR MAGAÑA Attending Unavailable REQUEST, DR NONE LISTED Primary Care Unavaila ble CONNIE ., DR MAGAÑA Consulting Unavailable CONNIE ., DR MAGAÑA Consulting Unavailable REQUEST, DR NONE LISTED Primary Care Unavaila ble CONNIE ., DR MAGAÑA Attending Unavailable CONNIE ., DR MAGAÑA Admitting Unavailable CONNIE ., DR MAGAÑA Consulting Unavailable REQUEST, DR NONE LISTED Primary Care Unavaila ble CONNIE ., DR MAGAÑA Attending Unavailable CONNIE ., DR MAGAÑA Admitting Unavailable CONNIE ., DR MAGAÑA Consulting Unavailable REQUEST, DR NONE LISTED Primary Care Unavaila ble CONNIE ., DR MAGAÑA Attending Unavailable CONNIE ., DR MAGAÑA Admitting Unavailable GRETA II, VINCE Consulting Unavailable FILUTZE, PADMINI Consulting Unavailable REQUEST, DR NONE LISTED Primary Care Unavaila ble HAY ., DR JASMINE Admitting Unavailable HAY ., DR JASMINE Attending Unavailable HAY ., DR JASMINE Consulting Unavailable CONNIE ., DR MAGAÑA Procedure Practitioner Unavail able CONNIE ., DR MAGAÑA Consulting Unavailable REQUEST, DR NONE LISTED Primary Care Unavaila ble CONNIE ., DR MAGAÑA Attending Unavailable CONNIE ., DR MAGAÑA Admitting Unavailable LENAMANNY Fleming Consulting Unavailable TRINH, CARRINGTON Consulting Unavailable GEMBUS, MAURI Consulting Unavailable CONNIE ., DR MAGAÑA Admitting Unavailable CONNIE ., DR MAGAÑA Attending Unavailable REQUEST, DR NONE LISTED Primary Care Unavaila ble CONNIE ., DR MAGAÑA Consulting Unavailable CONNIE ., DR MAGAÑA Admitting Unavailable CONNIE ., DR MAGAÑA Attending Unavailable REQUEST, DR NONE LISTED Primary Care Unavaila ble WEST, DR KIRSTEN Alvarado Consulting Unavailable CONNIE ., DR MAGAÑA Consulting Unavailable JAMEL DELGADO Attending Unavailable DANNY, JAMEL Admitting Unavailable REQUEST, NONE LISTED Primary Care Unavaila ble CONNIE ., DR MAGAÑA Admitting Unavailable CONNIE ., DR MAGAÑA Attending Unavailable REQUEST, DR NONE LISTED Primary Care Unavaila ble WEST, DR KIRSTEN Alvarado Consulting Unavailable CONNIE ., DR MAGAÑA Consulting Unavailable Carol Gutierrez Primary Care Physician Elías TEAM LEADER/RESEARCH PSYCHOLOGIST - TOOTH CUTTER SPUR, Mirza Primary Care Provider MIRZA MCMULLEN Primary Care Unavailable ELSA SCOTT Admitting Unavailable ELSA SCOTT Attending Unavailable MIRZA MCMULLEN Primary Care Unavailable ELIZABETH CRUZ Primary Care Physician AUTUMN Cruz Primary Care Provider AUTUMN Cruz Attending Provider MARK ROSALES Attending Unavailable Nancy, AUTUMN Johnson Primary Care Provider DAHLIA Alvarado Attending Provider Elizabeth Cruz Attending Unavailable Elizabeth Cruz Admitting Unavailable Elizabeth Cruz Primary Care Unavailable Jessie Alvarado Admitting Unavailable Jessie Alvarado Attending Unavailable Elizabeth Cruz Primary Care Unavailable ALEXEI SON Admitting Unavailable ALEXEI SON Attending Unavailable Hacarmen Astrit H Attending Unavailable SONALEXEI SERVIN Attending Unavailable Hacarmen, Astrit H Attending Unavailable Unavailable Primary Care Provider Unavailabl e Allergies Allergy Classification Reported Allergen(s) Allergy Type Date of Onset Reaction(s) Facility (12 sources) Amoxicillin; Translations: [amoxicillin] Drug Allergy 03-16-2023 [facility] (15 sources) Penicillins; Translations: [penicillins] Drug allergy 06-30-2014 [facility] (1 source) Amoxicillin Drug Allergy [facility] (1 source) Penicillin Drug Allergy [facility] (1 source) Amoxicillin Drug Allergy 06-11-2024 [facility] Medications Current Medications Medication Drug [...] day(s), # 5 tab(s), Refills(s) 0, Pharmacy: [facility]/pharmacy #[id number], 155, cm, 12/19/23 12:54:00 EDT, Height/Length [...] day, # 14 tab(s), Refills(s) 0, [id number], cm, 04/14/23 13:45:00 EDT, Height/Length Dosing, 120, kg, 04/14/23 13:45:00 EDT, Weight Dosing Start Date: 04/14/23 Status: Ordered Micro (No Known Home Meds) (1 source) Start: 06-11-2024 Micro (No Kn own Home Meds) Active June 11, 2024 12:00am predniSONE 20 mg oral tablet (2 sources) Start: 12-19-2023 End: 12-24-2023 take 2 tablets by mouth once daily predniSONE 20 mg Tab 40 mg = 2 tab(s), Oral, Daily, X 5 day(s), # 10 tab(s), Refills(s) 0, [id number], cm, 12/19/23 12:54:00 EDT, Height/Length Dosing, 127.3, kg, 12/19/23 12:54:00 EDT, Weight Dosing Start Date: 12/19/23 Stop Date: 12/24/23 Status: Ordered Zofran ODT 4 mg Tab-Dis (1 source) Start: 11-23-2024 take 1 tablet by mouth every six hours as needed for nausea Zofran ODT 4 mg Tab-Dis 4 mg = 1 tab(s), Oral, q6hr, PRN Nausea/Vomiting, # 12 tab(s), Refills(s) 0, [id number], cm, 11/23/24 3:07:00 EST, Height/Length Dosing, 121.8, kg, 11/23/24 3:07:00 EST, Weight Dosing Start Date: 11/23/24 Status: Ordered Completed/Discontinued Medications Medication Drug Class(es) [...] Active Problems Problem Classification Problem Date Documented Da te Episodic/Chronic Anxiety disorders (9 sources) Anxiety disorder, [...] STERILIZATION] Onset: 11-01-2022 Episodic Diverticulosis and diverticulitis (5 sources) Diverticulitis 12-15-2019 Chronic Female infertility (2 sources) Oligo-ovulation; 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 Menstrual disorders (6 sources) Irregular menstruation, unspecified; Translations: [Oligomenorrhea] Onset: 06-30-2014 Chronic Mood disorders (13 sources) Depressive disorder; Translations: [Major depressive disorder] Onset: 12-28-2023 09-19-2016 Chronic Mood disorders (1 source) Mood disorders; Translations: [DEPRESSION UNSPECIFIED] Onset: 11-14-2022 Nausea and vomiting (3 sources) Nausea and vomiting; Translations: [Nausea with [...] uterine and vaginal bleeding] 03-20-2018 Chronic Other gastrointestinal disorders (1 source) Diarrhea; Translations: [Diarrhea, unspecified] Onset: 11-23-2024 Episodic Other nervous system disorders (5 sources) Loss of taste 10-11-2020 Episodic Other [...] Onset: 12-19-2023 Episodic Other upper respiratory disease (3 sources) Congestion of nasal sinus 12-19-2023 Episodic Other upper respiratory infections (9 sources) Acute upper respiratory infection; Translations: [Acute pharyngitis] Onset: 12-19-2023 10-11-2020 Episodic Otitis media and related conditions (4 sources) Otitis media; Translations: [Otitis media, unspecified, right ear] Onset: 12-19-2023 Episodic Previous (3 sources) Maternal care for low transverse scar from previous delivery; Translations: [MAT CARE LW TRANS SCAR PREV C/S DEL] Onset: 09-18-2022 Episodic Residual codes; unclassified (1 source) 39 weeks gestation of ; Translations: [39 WEEKS GESTATION OF ] Onset: 10-03-2022 Episodic Skin and subcutaneous tissue infections (5 sources) Pilonidal cyst 08-15-2017 Episodic Spondylosis; intervertebral disc disorders; other back problems (10 sources) Low back pain; Translations: [Lumbar radiculopathy] 12-01-2019 Episodic Sprains and strains (2 sources) Sprain of wrist; Translations: [Unspecified sprain of unspecified wrist, initial encounter] Onset: 04-14-2023 Episodic Syncope (1 source) Syncope and collapse; Translations: [Syncope and collapse] Onset: 11-23-2024 Episodic Unclassified (1 source) CONTACT W/AND (SUSP) [...] Episodic Immunizations and screening for infectious disease (2 sources) Contact with and (suspected) exposure to infections with a predominantly sexual mode of transmission; Translations: [Exposure to sexually transmissible disorder] Onset: 09-02-2022 Resolved: 03-16-2023 03-16-2023 Episodic Other circulatory disease (2 sources) Borderline [...] Test Name Value Interpretation Reference Range Facility CBC With Platelet and Differ entialon 02-06-2025 Basophils (Bld) [#/Vol] 0.0 10*3/uL Normal 0.0-0.2 [facility] Comment on above: Performed By: #### C BCWD #### [facility] [address] [place] [address] Basophils/100 WBC (Bld) 0.3 % Normal [facility] Comment on above: Performed By: #### C BCWD #### [facility] [address] [place] [address] Eosinophils (Bld) [#/Vol] 0.2 10*3/uL Normal 0.0-0.7 [facility] Comment on above: Performed By: #### C BCWD #### [facility] [address] [place] [address] Eosinophils/100 WBC (Bld) 2.1 % Normal [facility] Comment on above: Performed By: #### C BCWD #### [facility] [address] [place] [address] Erythrocyte distribution width (RBC) [Ratio] 12.8 % Normal 11.5-14.5 [facility] Comment on above: Performed By: #### C BCWD #### [facility] [address] [place] [address] Hematocrit (Bld) [Volume fraction] 41.9 % Normal 37.0-47.0 [facility] Comment on above: Performed By: #### C BCWD #### [facility] [address] [place] [address] Hemoglobin (Bld) [Mass/Vol] 13.3 g/dL Normal 12.0-16.0 [facility] Comment on above: Performed By: #### C BCWD #### [facility] [address] [place] [address] Lymphocytes (Bld) [#/Vol] 2.8 10*3/uL Normal 1.0-4.8 [facility] Comment on above: Performed By: #### C BCWD #### [facility] [address] [place] [address] Lymphocytes/100 WBC (Bld) 31.2 % Normal [facility] Comment on above: Performed By: #### C BCWD #### [facility] [address] [place] [address] MCH (RBC) [Entitic mass] 26.4 pg Low 27.0-31.3 [facility] Comment on above: Performed By: #### C BCWD #### [facility] [address] [place] [address] MCHC 31.7 % Low 33.0-37.0 [facility] Comment on above: Performed By: #### C BCWD #### [facility] [address] [place] [address] MCV (RBC) [Entitic vol] 83.1 fL Normal 79.4-94.8 [facility] Comment on above: Performed By: #### C BCWD #### [facility] [address] [place] [address] Monocytes (Bld) [#/Vol] 0.4 10*3/uL Normal 0.2-0.8 [facility] Comment on above: Performed By: #### C BCWD #### [facility] [address] [place] [address] Monocytes/100 WBC (Bld) 5.0 % Normal [facility] Comment on above: Performed By: #### C BCWD #### [facility] [address] [place] [address] Neutrophils (Bld) [#/Vol] 5.4 10*3/uL Normal 1.4-6.5 [facility] Comment on above: Performed By: #### C BCWD #### [facility] [address] [place] [address] Neutrophils/100 WBC (Bld) 60.9 % Normal [facility] Comment on above: Performed By: #### C BCWD #### [facility] [address] [place] [address] Platelets (Bld) [#/Vol] 321 10*3/uL Normal 130-400 [facility] Comment on above: Performed By: #### C BCWD #### [facility] [address] [place] [address] RBC (Bld) [#/Vol] 5.04 10*6/uL Normal 4.20-5.40 [facility] Comment on above: Performed By: #### C BCWD #### [facility] [address] [place] [address] WBC (Bld) [#/Vol] 8.9 10*3/uL Normal 4.8-10.8 [facility] Comment on above: Performed By: #### C BCWD #### [facility] [address] [place] [address] C Urineon 11-25-2024 Bacteria identified Cx Nom (U) Microbiology PROCEDURE: Urine Culture [R1] SOURCE: U CleanCatch BODY SITE: COLLECTED DATE/TIME: 11/23/2024 03:54 EST RECEIVED DATE/TIME: 11/23/2024 04:48 EST START DATE/TIME: 11/23/2024 04:48 EST FREE TEXT SOURCE: Drake Bynum, Debra Juan M.D., Debra Tang FINAL REPORTS Final Report [] Verified Date/Time: 11/25/2024 10:24 EST 2,000 cfu/ml Mixed skin contaminants Performing Locations R1: This test was performed at: [facility], [address] [place] [address], [address] , [place], Normal [facility] Comment on above: Performed By: #### 2 [id number] #### [facility] [address] [place] [address] BMPon 11-23-2024 Anion gap [Moles/Vol] 12 mmol/L Normal 6-16 [facility] Comment on above: Performed By: #### 2 [id number] #### [facility] [address] [place] [address] Calcium [Mass/Vol] 9.2 mg/dL Normal 8.9-11.1 [facility] Comment on above: Performed By: #### 2 [id number] #### [facility] [address] [place] [address] Chloride [Moles/Vol] 107 mmol/L Normal 101-111 [facility] Comment on above: Performed By: #### 2 [id number] #### [facility] [address] [place] [address] CO2 [Moles/Vol] 23 mmol/L Normal 21-31 [facility] Comment on above: Performed By: #### 2 [id number] #### [facility] [address] [place] [address] Creatinine [Mass/Vol] 0.6 mg/dL Normal 0.5-1.3 [facility] Comment on above: Performed By: #### 2 [id number] #### [facility] [address] [place] [address] Glucose [Mass/Vol] 121 mg/dL Normal 55-199 [facility] Comment on above: Performed By: #### 2 [id number] #### [facility] [address] [place] [address] Potassium [Moles/Vol] 4.0 mmol/L Normal 3.5-5.3 [facility] Comment on above: Performed By: #### 2 [id number] #### [facility] [address] [place] [address] Sodium [Moles/Vol] 138 mmol/L Normal 135-145 [facility] Comment on above: Performed By: #### 2 [id number] #### [facility] [address] [place] [address] Urea nitrogen [Mass/Vol] 13 mg/dL Normal 5-21 [facility] Comment on above: Performed By: #### 2 [id number] #### [facility] [address] [place] [address] Urea nitrogen/Creatinine [Mass ratio] 22 No Units High 10-20 [facility] Comment on above: Performed By: #### 2 [id number] #### [facility] [address] [place] [address] CBC w/ Auto Diffon 5 Basophils/100 WBC (Bld) 0.6 % Normal 0.0-2.0 [facility] Comment on above: Performed By: #### 2 [id number] #### [facility] [address] [place] [address] Basophils/Leukocytes Auto (Bld) [Pure # fraction] 0.1 E9/L Normal 0.0-0.2 [facility] Comment on above: Performed By: #### 2 [id number] #### [facility] [address] [place] [address] Eosinophils (Bld) [#/Vol] 0.1 E9/L Normal 0.0-0.5 [facility] Comment on above: Performed By: #### 2 [id number] #### [facility] [address] [place] [address] Eosinophils/100 WBC (Bld) 1.5 % Normal 0.0-8.0 [facility] Comment on above: Performed By: #### 2 [id number] #### [facility] [address] [place] [address] Erythrocyte distribution width (RBC) [Ratio] 14.4 % High 10.9-14.2 [facility] Comment on above: Performed By: #### 2 [id number] #### [facility] [address] [place] [address] Hematocrit (Bld) [Volume fraction] 42.4 % Normal 34.0-46.0 [facility] Comment on above: Performed By: #### 2 [id number] #### [facility] [address] [place] [address] Hemoglobin (Bld) [Mass/Vol] 14.3 g/dL Normal 12.0-16.0 [facility] Comment on above: Performed By: #### 2 [id number] #### [facility] [address] [place] [address] Lymphocytes (Bld) [#/Vol] 1.2 E9/L Normal 1.0-4.0 [facility] Comment on above: Performed By: #### 2 [id number] #### [facility] [address] [place] [address] Lymphocytes/100 WBC (Bld) 13.5 % Low 14.0-50.0 [facility] Comment on above: Performed By: #### 2 [id number] #### [facility] [address] [place] [address] MCH (RBC) [Entitic mass] 27.8 pg Normal 27.0-34.0 [facility] Comment on above: Performed By: #### 2 [id number] #### [facility] [address] [place] [address] MCHC (RBC) [Mass/Vol] 33.7 g/dL Normal 31.4-36.0 [facility] Comment on above: Performed By: #### 2 [id number] #### [facility] [address] [place] [address] MCV (RBC) [Entitic vol] 82.3 fL Normal 80.0-100.0 [facility] Comment on above: Performed By: #### 2 [id number] #### [facility] [address] [place] [address] Monocytes (Bld) [#/Vol] 0.4 E9/L Normal 0.2-1.0 [facility] Comment on above: Performed By: #### 2 [id number] #### [facility] [address] [place] [address] Neutrophils (Bld) [#/Vol] 7.2 E9/L Normal 2.0-7.5 [facility] Comment on above: Performed By: #### 2 [id number] #### [facility] [address] [place] [address] Neutrophils/100 WBC (Bld) 80.0 % High 36.0-75.0 [facility] Comment on above: Performed By: #### 2 [id number] #### [facility] [address] [place] [address] Platelet 291.0 E9/L Normal 150.0-500.0 [facility] Comment on above: Performed By: #### 2 [id number] #### [facility] [address] [place] [address] Platelet mean volume (Bld) [Entitic vol] 8.4 fL Normal 6.4-10.8 [facility] Comment on above: Performed By: #### 2 [id number] #### [facility] [address] [place] [address] RBC (Bld) [#/Vol] 5.2 E12/L Normal 4.3-5.9 [facility] Comment on above: Performed By: #### 2 [id number] #### [facility] [address] [place] [address] WBC corrected for nucl RBC Auto (Bld) [#/Vol] 9.0 E9/L Normal 4.0-11.0 [facility] Comment on above: Performed By: #### 2 [id number] #### [facility] [address] [place] [address] CHEMISTRYOrdered By: SYSTEM SYSTEM on 11-23-2024 Albumin [Mass/Vol] 4.2 g/dL Normal 3.3 - 5.0 gm/dL [facility] Albumin/Globulin [Mass ratio] 1.1 {ratio} Normal 1.1 - 2.2 [facility] ALP [Catalytic activity/Vol] 73 [iU]/d Normal 21 - 98 Int._Unit/L [facility] ALT No additional P-5'-P [Catalytic activity/Vol] 17 [iU]/d Normal 6 - 46 Int._Unit/L [facility] Anion gap [Moles/Vol] 12 mmol/L Normal 6 - 16 mEq/L R [facility] AST [Catalytic activity/Vol] 18 [iU]/d Normal 5 - 43 Int._Unit/L [facility] Bilirubin [Mass/Vol] 0.8 mg/dL Normal 0.0 - 1 .1 mg/dL [facility] Bilirubin.direct [Mass/Vol] 0.0 mg/dL Normal 0.0 - 0.4 mg/dL [facility] Bilirubin.indirect [Mass or moles/Vol] 0.8 mg/dL Normal 0.1 - 0.9 mg/dL [facility] Calcium [Mass/Vol] 9.2 mg/dL Normal 8.9 - 11. 1 mg/dL [facility] Chloride [Moles/Vol] 107 mmol/L Normal 101 - 1 11 mmol/L [facility] CO2 [Moles/Vol] 23 mmol/L Normal 21 - 31 mmol/L [facility] Creatinine [Mass/Vol] 0.6 mg/dL Normal 0.5 - 1.3 mg/dL [facility] eGFR 123 mL/min/1.73 m2 Normal >=59mL/mi n/1 .73 m2 [facility] Globulin (S) [Mass/Vol] 3.7 g/dL Normal 1.4 - 4.0 gm/dL [facility] Glucose [Mass/Vol] 121 mg/dL Normal 55 - 199 mg/dL [facility] Lipase [Catalytic activity/Vol] 8 U/L Low 13 - 58 unit/L [facility] Magnesium [Mass/Vol] 1.8 mg/dL Normal 1.3 - 2 .4 mg/dL [facility] Potassium [Moles/Vol] 4.0 mmol/L Normal 3.5 - 5.3 mmol/L [facility] Protein [Mass/Vol] 7.9 g/dL High 6.0 - 7.8 gm/dL [facility] Sodium [Moles/Vol] 138 mmol/L Normal 135 - 145 mmol/L [facility] Troponin HS pg/mL Low 10.10 - 27.10 pg/mL [facility] Comment on above: Interpretive Data: T he 95% CI (Confidence Interval) PPV (Positive Predictive Value) for myocardial infarction in females is 38 pg/mL, in males 51 pg/mL. The results should be used in conjunction with clinical conditions of myocardial infarction. (Access High Sensitivity Troponin I Instructions For Use, [employer] [place], May 2018) Urea nitrogen [Mass/Vol] 13 mg/dL Normal 5 - 21 mg/dL [facility] Urea nitrogen/Creatinine [Mass ratio] 22 mg/mg High 10 - 20 [facility] ED Clinical Summaryon 2024 ED Clinical Summary ED Clinical Summary [place] [address] ED Clinical Summary Person Information Name: PRUDENCIO JARAMILLO [facility] Age: 29 Years : 1995 Sex: Female Language: Belgian PCP: ELIZABETH CRUZ CNP Marital Status: Visit Id: Visit Reason: Diarrhea; Vomiting; Nausea; NAUSEA, VOMITING, DIARRHEA Speciality: Acuity: 3 Enc Type: Emergency Med Service: Emergency Arrival: 11/23/2024 02:56:10 Discharge: 11/23/2024 05:18:23 LOS: 000 02:22 Checkin: 11/23/2024 02:56:10 Checkout: 11/23/2024 05:18:23 Dispo Type: Home (Routine DC) EVENTS: Event Name Event Status Request Date/Time Start Date/Time Complete Date/Time Arrive Complete 11/23/2024 02:56:10 11/23/2024 02:56:10 11/23/2024 02:56:10 Document Home Meds Request 11/23/2024 02:56:10 Triage Complete 11/23/2024 02:56:10 11/23/2024 03:07:26 11/23/2024 03:07:26 Pending Labs Complete 11/23/2024 02:59:36 11/23/2024 03:41:50 Swab Complete 11/23/2024 02:59:36 11/23/2024 03:41:50 Pending Labs Complete 11/23/2024 02:59:53 11/23/2024 03:41:41 Lab Complete 11/23/2024 02:59:53 11/23/2024 03:41:41 Registration Complete 11/23/2024 03:00:15 11/23/2024 03:00:15 11/23/2024 03:00:15 Reg Complete Request 11/23/2024 03:00:15 Reg Bed Request Complete 11/23/2024 03:00:15 11/23/2024 03:00:15 11/23/2024 03:00:15 Bed Assign Complete 11/23/2024 03:11:30 11/23/2024 03:11:30 11/23/2024 03:11:30 Dr Exam Complete 11/23/2024 03:11:30 11/23/2024 03:12:26 11/23/2024 03:12:26 RN Exam Complete 11/23/2024 03:11:30 11/23/2024 03:35:46 11/23/2024 03:35:46 Registration Complete 11/23/2024 03:12:26 11/23/2024 03:14:32 11/23/2024 03:14:32 EKG Complete 11/23/2024 03:21:10 11/23/2024 03:28:24 Meds Admin Complete 11/23/2024 03:21:10 11/23/2024 03:27:27 Pending Labs Complete 11/23/2024 03:21:10 11/23/2024 04:19:34 Lab Complete 11/23/2024 03:21:10 11/23/2024 04:04:13 Pending Labs Complete 11/23/2024 03:35:38 11/23/2024 03:35:38 11/23/2024 04:04:13 Lab Complete 11/23/2024 03:35:38 11/23/2024 03:35:38 11/23/2024 04:04:13 Pending Labs Inlab 11/23/2024 04:19:35 11/23/2024 04:19:35 Lab Inlab 11/23/2024 04:19:35 11/23/2024 04:19:35 Discharge Complete 11/23/2024 04:54:31 11/23/2024 05:18:31 11/23/2024 05:18:31 Transfer Complete 11/23/2024 05:18:31 11/23/2024 05:18:31 11/23/2024 05:18:31 ADDRESS: [address] [place] [phone] PHYS DOC NOTES: MEDICAL INFORMATION: Prescriptions Given: New Medications [id number], [address] [place] [id number], [phone] ondansetron (Zofran ODT 4 mg Tab-Dis) 1 Tablets By Mouth every 6 hours as needed Nausea/Vomiting. Refills: 0. PATIENT EDUCATION INFORMATION: Instructions: Diarrhea, Adult; Nausea and Vomiting, Adult; Near-Syncope Follow up: With: Address: When: [place] [address] Business (1) In 3 days 11/26/2024 Comments: Return to the emergency room if your vomiting recurs or any new symptoms. DIAGNOSIS: 1:Vomiting and diarrhea; 2:Near syncope; Diarrhea, unspecified Normal [facility] ED Note-Physicianon 11-23-19 ED Note-Physician ED Note-Physician Basic Information Time Seen: Debra Juan M.D. 11/23/2024 03:12 Chief Complaint nausea vomiting and diarrhea. denies fever. states has been going on for the last 14hrs. lightheaded at times. History of Present Illness The patient is a 29-year-old female presented to the emergency room with vomiting and diarrhea. The patient states since yesterday she has been vomiting. The vomiting is bile. The patient reports diarrhea. She states she has had some blood with her diarrhea. The patient reports feeling nauseated. Denies any abdominal pain. The patient states she feels dizzy when she is standing. The patient states she feels like she is going to pass out when she is standing. She thinks she might have blacked out couple of times. The patient denies any chest pain. She denies any shortness of breath. The patient states her and her kids had the same symptoms. She denies any recent traveling. Denies any bad food. The patient denies any other associated symptoms. Review of Systems Additional ROS info: Except as noted in the above Review of Systems and in the History of Present Illness all other systems have been reviewed and are negative or noncontributory. Physical Exam Vitals & Measurements T: 36.3 ???C(Oral) HR: 84(Monitored) RR: 20 BP: 122/86 SpO2: 96% HT: 155 cm WT: 121.8 kg BMI: 50.7 General: alert, no acute distress Skin: warm, dry Head: no trauma, normocephalic Neck: Trachea midline, no tenderness, supple Eye: normal conjunctiva, sclera clear ENMT: Oral mucosa moist, no pharyngeal erythema or exudate Cardiovascular: regular rate and rhythm, Respiratory: Lungs CTA, respirations non labored, breath sounds equal Gastrointestinal: soft, non distended, no tenderness, no guarding Extremities: no deformity, no trauma Neurological: Alert and oriented, CN II-XII intact, motor strength equal & normal bilaterally, sensation equal & normal bilaterally, speech normal, no focal neuro deficits Psychiatric: cooperative, affect appropriate for age, Medical Decision Making MEDICAL DECISION MAKING Number and Complexity of Problems Differential Diagnosis: [] [facility] Data External documents reviewed: [] My EKG interpretation: [] My CT interpretation: [] My X-ray interpretation: [] My Ultrasound interpretation: [] Decision rules/scores evaluated: [] Discussed with: [] Treatment and Disposition ED Course: The patient presented with vomiting and diarrhea and dizziness. More likely her symptoms are due to viral gastroenteritis. Her near syncope is due to dehydration. Blood work reviewed and unremarkable. The patient was given 1 L of normal saline and antiemetic. Her dizziness improved. She was able to ambulate with no symptoms. The patient feels comfortable going home. Will discharge patient home with prescription for Zofran and follow-up with primary care. She is instructed to return to the emergency room if her vomiting recurs, dizziness recurs or any new symptoms. Shared decision making: [] Code status: [] Assessment/Plan 1. Vomiting and diarrhea (R11.10: Vomiting, unspecified) 2. Near syncope (R55: Syncope and collapse) Diarrhea, unspecified (R19.7: Diarrhea, unspecified) Orders: ondansetron, 4 mg = 2 mL, Injection, IV Push, Once, Stop date 11/23/24 3:20:00 EST, STAT, Start date 11/23/24 3:20:00 EST, 11/23/24 3:20:00 EST ondansetron, 4 mg = 1 tab(s), Oral, q6hr, PRN Nausea/Vomiting, # 12 tab(s), Refills(s) 0, Pharmacy: [id number], 155, cm, 11/23/24 3:07:00 EST, Height/Length Dosing, 121.8, kg, 11/23/24 3:07:00 EST, Weight Dosing Sodium Chloride 0.9% intravenous solution, 1,000 mL, Soln-IV, IV, Once, Stop date 11/23/24 3:20:00 EST, STAT, Start date 11/23/24 3:20:00 EST, Infuse over 61, minute(s) Basic Metabolic Panel CBC w/ Auto Diff ECG 12 Lead Adult eGFR Hepatic Function Panel Influenza A&B Ag Lipase Level Magnesium Level Rapid COVID Antigen ([facility]) Troponin 0 Hr. UA with Cult Rflx Urine Culture Medications Administered Given NS 1000 ml Bolus, 1000 mL, IV ondansetron 4 mg/2 mL Inj, 4 mg, IV Push Disposition Plan Patient Discharge Condition Stable, improved Discharge Disposition Discharged home Discharge Prescription List Prescriptions Zofran ODT 4 mg Tab-Dis, 4 mg= 1 tab(s), Oral, q6hr, PRN Follow-up With When Contact Information ELIZABETH CRUZ In 3 days 11/26/20[place] [address]- Business (1) Additional Instructions: Return to the emergency room if your vomiting recurs or any new symptoms. Patient Education Diarrhea, Adult Nausea and Vomiting, Adult Near-Syncope Problem List/Past Medical History Ongoing Acute pharyngitis Acute URI Clostridium difficile diarrhea Diverticulitis Loss of taste Lumbago Lumbar radiculitis Right otitis media Sinus congestion Historical Appendectomy Depression Migraine Procedure/Surgical History sec (more content not included)... Normal [facility] Comment on above: Result Comment: Elec tronically Signed By: Debra Juan M.D.\.br\Date and Time Signed: 11/23/24 05:31 EST ED Patient Summaryon 025 ED Patient Summary ED Patient Summary [address] [address] Patient Discharge Instructions Person Information Name: PRUDENCIO JARAMILLO Age: 29 Years Arrival Date: 11/23/2024 02:56:10 Discharge Diagnosis: 1:Vomiting and diarrhea; 2:Near syncope; Diarrhea, unspecified Primary Care Physician: ELIZABETH CRUZ CNP Provider Information Primary Provider: Debra Juan M.D. Advanced Multiple Slide Operator:None The exam and treatment you received in the Emergency Department were for an urgent problem and are not intended as complete care. It is important that you follow up with a doctor, nurse practitioner, or physician???s ward assistant for ongoing care. If your symptoms become worse or you do not improve as expected and you are unable to reach your usual health care provider, you should return to the Emergency Department. We are available 24 hours a day. PRUDENCIO JARAMILLO has been given the following list of patient education materials, prescriptions and follow-up instructions: Follow-up Instructions: With: Address: When: [place], [place] [id number] [facility] () In 3 days 11/26/2024 Comments: Return to the emergency room if your vomiting recurs or any new symptoms. In the event that this physician does not participate in your insurance network, please consult with your insurance company to find a nearby participating provider. Patient Education Materials: Diarrhea, Adult; Nausea and Vomiting, Adult; Near-Syncope A MESSAGE TO ALL PATIENTS REGARDING OPIOIDS PRESCRIPTION OPIOIDS: WHAT YOU NEED TO KNOW Prescription opioids can be used to help relieve zyyedave-hh-igkeih pain and are often prescribed following a [...] as well, even when taken as directed: ??? Tolerance???meaning you might need to take more of the medication for the same pain relief ??? Physical dependence???meaning you have symptoms of withdrawal when a medication is stopped ??? Increased sensitivity to pain ??? Constipation ??? Nausea, vomiting, and dry mouth ??? Sleepiness and dizziness ??? Confusion ??? Depression ??? Low levels of testosterone that can result in lower sex drive, energy, and strength ??? Itching and sweating RISKS ARE GREATER WITH: ??? History of drug misuse, substance use disorder, or overdose ??? Mental health conditions (such as depression or anxiety) ??? Sleep apnea ??? Older age (65 years and older) ??? Avoid alcohol while taking prescription opioids. Also, unless specifically advised by your health care provider, medications to avoid include: ??? Benzodiazepines (such as Xanax or Valium) ??? Muscle relaxants (such as Soma or Flexeril) ??? Hypnotics (such as Ambien or Lunesta) ??? Other prescription opioids KNOW YOUR OPTIONS Talk to your health care provider about ways to manage your pain that don???t involve prescription opioids. Some of these options may actually work better and have fewer risks and side effects. Options may include: ??? Pain relievers such as acetaminophen, ibuprofen, and naproxen ??? Some medication that are also used for depression or seizures ??? Physical therapy and exercise ??? Cognitive behavioral therapy, a psychological, goal-directed approach, in which patients learn how to modify physical, behavioral, and emotional triggers of pain and stress. IF YOU ARE PRESCRIBED OPIOIDS FOR PAIN: ??? Never take opioids in greater amounts or more often than prescribed. ??? Follow up with your primary health care provider. o Work together to create a plan on how to manage your pain. o Talk about ways to help manage your pain that don???t involve prescription opioids. o Talk about any and all concerns and side effects. ??? Help prevent misuse and abuse o Never sell or share prescription opioids. o Never use another person???s prescription opioids. ??? Store prescription opioids in a secure place and out of reach of others (this may include visitors, children, friends, and family). ??? Safely dispose of unused prescription opioids: Find your community drug take-back program or your pharmacy mail-back program, or flush them down the toilet, following guidance from the Food and Drug Administration (www.fda.gov/Drugs/Re sourcesForYou). ??? Visit www.cdc.gov/drugoverd ose to learn about the (more content not included)... Normal [facility] HEMATOLOGYOrdered By: SYSTEM SYSTEM on 11-23-2024 Basophils/100 WBC (Bld) 0.6 % Normal 0.0 - 2.0 % Remisol Heme Basophils/Leukocytes Auto (Bld) [Pure # fraction] 0.1 E9/L Normal 0.0 - 0.2 E9/L Remisol Heme Eosinophils (Bld) [#/Vol] 0.1 E9/L Normal 0.0 - 0.5 E9/L Remisol Heme Eosinophils/100 WBC (Bld) 1.5 % Normal 0.0 - 8.0 % Remisol Heme Erythrocyte distribution width (RBC) [Ratio] 14.4 % High 10.9 - 14.2 % Remisol Heme Hematocrit (Bld) [Volume fraction] 42.4 % Normal 34.0 - 46.0 % Remisol Heme Hemoglobin (Bld) [Mass/Vol] 14.3 g/dL Normal 12.0 - 16.0 gm/dL Remisol Heme Lymphocytes (Bld) [#/Vol] 1.2 E9/L Normal 1.0 - 4.0 E9/L Remisol Heme Lymphocytes/100 WBC (Bld) 13.5 % Low 14.0 - 50.0 % Remisol Heme MCH (RBC) [Entitic mass] 27.8 pg Normal 27.0 - 34.0 pg Remisol Heme MCHC (RBC) [Mass/Vol] 33.7 g/dL Normal 31.4 - 36.0 gm/dL Remisol Heme MCV (RBC) [Entitic vol] 82.3 fL Normal 80.0 - 100.0 fL Remisol Heme Monocytes (Bld) [#/Vol] 0.4 E9/L Normal 0.2 - 1.0 E9/L Remisol Heme Monocytes/100 WBC (Bld) 4.4 % Normal 4.0 - 14.0 % Remisol Heme Neutrophils (Bld) [#/Vol] 7.2 E9/L Normal 2.0 - 7.5 E9/L Remisol Heme Neutrophils/100 WBC (Bld) 80.0 % High 36.0 - 75.0 % Remisol Heme Platelet 291.0 E9/L Normal 150.0 - 500.0 E9/L Remisol Heme Platelet mean volume (Bld) [Entitic vol] 8.4 fL Normal 6.4 - 10.8 fL Remisol Heme RBC (Bld) [#/Vol] 5.2 E12/L Normal 4.3 - 5.9 E12/L Remisol Heme WBC corrected for nucl RBC Auto (Bld) [#/Vol] 9.0 E9/L Normal 4.0 - 11.0 E9/L Remisol Heme Hep Func Panelon 11-23-2024 Albumin [Mass/Vol] 4.2 g/dL Normal 3.3-5.0 [facility] Comment on above: Performed By: #### 2 [id number] #### [facility] [address] [place] [address] Albumin/Globulin (S) [Mass conc ratio] 1.1 Normal 1.1-2.2 [facility] Comment on above: Performed By: #### 2 [id number] #### [facility] [address] [place] [address] ALP [Catalytic activity/Vol] 73 Int._Unit/L Normal 21-98 [facility] Comment on above: Performed By: #### 2 [id number] #### [facility] [address] [place] [address] ALT No additional P-5'-P [Catalytic activity/Vol] 17 Int._Unit/L Normal 6-46 [facility] Comment on above: Performed By: #### 2 [id number] #### [facility] [address] [place] [address] AST [Catalytic activity/Vol] 18 Int._Unit/L Normal 5-43 [facility] Comment on above: Performed By: #### 2 [id number] #### [facility] [address] [place] [address] Bilirubin [Mass/Vol] 0.8 mg/dL Normal 0.0-1.1 [facility] Comment on above: Performed By: #### 2 [id number] #### [facility] [address] [place] [address] Bilirubin.direct [Mass/Vol] 0.0 mg/dL Normal 0.0-0.4 [facility] Comment on above: Performed By: #### 2 [id number] #### [facility] [address] [place] [address] Bilirubin.indirect [Mass or moles/Vol] 0.8 mg/dL Normal 0.1-0.9 [facility] Comment on above: Performed By: #### 2 [id number] #### [facility] [address] [place] [address] Globulin (S) [Mass/Vol] 3.7 g/dL Normal 1.4-4.0 [facility] Comment on above: Performed By: #### 2 [id number] #### [facility] [address] [place] [address] Protein [Mass/Vol] 7.9 g/dL High 6.0-7.8 [facility] Comment on above: Performed By: #### 2 [id number] #### [facility] [address] [place] [address] Influenza A&B Agon 5 Influenzae A Ag Negative Normal Negative [facility] Comment on above: Performed By: #### 1 [id number] #### [facility] [address] [place] [address] Influenzae B Ag Negative Normal Negative [facility] Comment on above: Result Comment: Test sensitivity and specificity vary for age group, specimen type, antigen types, and prevalence of disease. Test results must be evaluated in conjunction with other clinical data available to the physician. Individuals who received nasally administered Influenza A vaccine may have positive test results up to 3 days after vaccination. Performed By: #### 1 [id number] #### [facility] [address] [place] [address] Lipase Levelon 11-23-2024 Lipase [Catalytic activity/Vol] 8 U/L Low 13-58 [facility] Comment on above: Performed By: #### 2 [id number] #### [facility] [address] [place] [address] MICRO OTHER TESTSOrdered By: Shanique Jerez on 11-23-2024 Influenzae A Ag Negative (11/23/24 3:11 AM) Normal Negative [facility] Man Sero Influenzae B Ag Negative 2 (11/23/24 3:11 AM) Normal Negative [facility] Comment on above: Interpretive Data: T est sensitivity and specificity vary for age group, specimen type, antigen types, and prevalence of disease. Test results must be evaluated in conjunction with other clinical data available to the physician. Individuals who received nasally administered Influenza A vaccine may have positive test results up to 3 days after vaccination. Rapid COV Int NEG Ctl Pass (11/23/24 3:11 AM) Normal [facility] Rapid COV Int POS Ctl Pass (11/23/24 3:11 AM) Normal [facility] SARS-CoV+SARS-CoV-2 (COVID-19) Ag IA.rapid Ql (Resp) Not Detected 4 (11/23/24 3:11 AM) Normal Not Detected [facility] Comment on above: Interpretive Data: T he [employer] Veritor System for Rapid Detection of SARS-CoV-2 is a chromatographic digital immunoassay intended for the direct and qualitative detection of SARS-CoV-2 nucleocapsid antigens in nasal swabs from individuals who are suspected of COVID-19 by their healthcare provider within the first five days of the onset of symptoms. Negative results should be treated as presumptive, do not rule out SARS-CoV-2 infection and should not be used as the sole basis for treatment or patient management decisions, including infection control decisions. Negative results should be considered in the context of a patient s recent exposures, history and the presence of clinical signs and symptoms consistent with COVID-19, and confirmed with a molecular assay, if necessary, for patient management. For in vitro diagnostic use. In the [place], only for use under an Emergency Use Authorization. In the [place], this test has not been FDA cleared or approved; this test has been authorized by FDA under an EUA for use by authorized laboratories; use by laboratories certified under the CLIA, 42 U.S.C. 263a, that meet requirements to perform moderate, high, or waived complexity tests and at the Point of Care (POC), i.e., in patient care settings operating under a CLIA Certificate of Waiver, Certificate of Compliance, or Certificate of Accreditation. This test has been authorized only for the detection of proteins from SARS-CoV-2, not for any other viruses or pathogens; and, in the [place], this test is only authorized for the duration of the declaration that circumstances exist justifying the authorization of emergency use of in vitro diagnostics for detection and/or diagnosis of the virus that causes COVID-19 under Section 564(b)(1) of the Act, 21 U.S.C. 360bbb-3(b)(1), unless the authorization is terminated or revoked sooner. Magnesiumon 11-23-2024 Magnesium [Mass/Vol] 1.8 mg/dL Normal 1.3-2.4 [facility] Comment on above: Performed By: #### 2 [id number] #### [facility] [address] [place] [address] Rapid COVID Antigen ([facility])on 11-23-2024 Rapid COV Int NEG Ctl Pass Normal [facility] Comment on above: Performed By: #### 2 [id number] #### [facility] [address] [place] [address] Rapid COV Int POS Ctl Pass Normal [facility] Comment on above: Performed By: #### 2 [id number] #### [facility] [address] [place] [address] SARS-CoV+SARS-CoV-2 (COVID-19) Ag IA.rapid Ql (Resp) Not detected Normal Not Detected [facility] Comment on above: Result Comment: The BD Veritor??? System for Rapid Detection of SARS-CoV-2 is a chromatographic digital immunoassay intended for the direct and qualitative detection of SARS-CoV-2 nucleocapsid antigens in nasal swabs from individuals who are suspected of COVID-19 by their healthcare provider within the first five days of the onset of symptoms. Negative results should be treated as presumptive, do not rule out SARS-CoV-2 infection and should not be used as the sole basis for treatment or patient management decisions, including infection control decisions. Negative results should be considered in the context of a patient???s recent exposures, history and the presence of clinical signs and symptoms consistent with COVID-19, and confirmed with a molecular assay, if necessary, for patient management. For in vitro diagnostic use. In the [place], only for use under an Emergency Use Authorization. In the [place], this test has not been FDA cleared or approved; this test has been authorized by FDA under an EUA for use by authorized laboratories; use by laboratories certified under the CLIA, 42 U.S.C. ???263a, that meet requirements to perform moderate, high, or waived complexity tests and at the Point of Care (POC), i.e., in patient care settings operating under a CLIA Certificate of Waiver, Certificate of Compliance, or Certificate of Accreditation. This test has been authorized only for the detection of proteins from SARS-CoV-2, not for any other viruses or pathogens; and, in the [place], this test is only authorized for the duration of the declaration that circumstances exist justifying the authorization of emergency use of in vitro diagnostics for detection and/or diagnosis of the virus that causes COVID-19 under Section 564(b)(1) of the Act, 21 U.S.C. ??? 360bbb-3(b)(1), unless the authorization is terminated or revoked sooner. Performed By: #### 2 [id number] #### [facility] [address] [place] [address] Troponin 0 Hr.on 11-23-2024 Troponin HS <2.30 Low 10.10-27.10 [facility] Comment on above: Result Comment: The 95% CI (Confidence Interval) PPV (Positive Predictive Value) for myocardial infarction in females is 38 pg/mL, in males 51 pg/mL. The results should be used in conjunction with clinical conditions of myocardial infarction. (Access High Sensitivity Troponin I Instructions For Use, Apple Abhi, May 2018) Performed By: #### 1 [id number] #### [facility] [address] [place] [address] UA with Cult Rflxon 11-23-19 25 Bilirubin Ql (U) Negative Normal Negative [facility] Comment on above: Performed By: #### 4 [id number] #### [facility] [address] [place] [address] Clarity (U) Turbid Abnormal Clear [facility] Comment on above: Performed By: #### 4 [id number] #### [facility] [address] [place] [address] Color (U) Yellow Normal Yellow [facility] Comment on above: Result Comment: Micr oscopic readings are only performed on those samples that meet specific criteria set forth by [facility]. Performed By: #### 4 [id number] #### [facility] [address] [place] [address] Epithelial cells.squamous Auto (Urine sed) [#/Area] 9-10 Invalid Interpretation Code [facility] Comment on above: Performed By: #### 4 [id number] #### [facility] [address] [place] [address] Glucose Ql (U) Negative Normal Negative [facility] Comment on above: Performed By: #### 4 [id number] #### [facility] [address] [place] [address] Hemoglobin Auto test strip (U) [Mass/Vol] Trace Abnormal Negative [facility] Comment on above: Performed By: #### 4 [id number] #### [facility] [address] [place] [address] Ketones Auto test strip Ql (U) Negative Normal Negative [facility] Comment on above: Performed By: #### 4 [id number] #### [facility] [address] [place] [address] Leukocyte esterase Auto test strip Ql (U) Negative Normal Negative [facility] Comment on above: Performed By: #### 4 [id number] #### [facility] [address] [place] [address] Mucus Auto Ql (U) 4+ [id number] Abnormal Negative [facility] Comment on above: Performed By: #### 4 [id number] #### [facility] [address] [place] [address] Nitrite Auto test strip Ql (U) Negative Normal Negative [facility] Comment on above: Performed By: #### 4 [id number] #### [facility] [address] [place] [address] pH (U) 5.5 [pH] Invalid Interpretation Code 5.0-9.0 [facility] Comment on above: Performed By: #### 4 [id number] #### [facility] [address] [place] [address] Protein Ql (U) Trace Abnormal Negative [facility] Comment on above: Performed By: #### 4 [id number] #### [facility] [facility] [address] [place] [address] RBC Ql (U) 4-20 Abnormal 0-3 [facility] Comment on above: Performed By: #### 4 [id number] #### [facility] [address] [place] [address] Specific gravity (U) [Rel density] 1.040 Invalid Interpretation Code 1.005-1.030 [facility] Comment on above: Performed By: #### 4 [id number] #### [facility] [address] [place] [address] Urobilinogen (U) [Mass/Vol] 2 mg/dL Abnormal Negative [facility] Comment on above: Performed By: #### 4 [id number] #### [facility] [address] [place] [address] WBC Auto (Urine sed) [#/Area] 6-15 Abnormal 0-5 [facility] Comment on above: Performed By: #### 4 [id number] #### [facility] [address] [place] [address] Type of Urine collection method Clean Catch Normal [facility] Comment on above: Performed By: #### 4 [id number] #### [facility] [address] [place] [address] URINALYSISOrdered By: SYSTEM SYSTEM on 11-23-2024 Bilirubin Ql (U) Negative Normal Negativemg/ d L [facility] UA Auto SS Clarity (U) Turbid *ABN* (11/23/24 3:54 AM) Invalid Interpretation Code Clear [facility] UA Auto SS Color (U) Yellow 1 (11/23/24 3:54 AM) Normal Yellow [facility] UA Auto SS Comment on above: Interpretive Data: M icroscopic readings are only performed on those samples that meet specific criteria set forth by [facility]. Epithelial cells.squamous Auto (Urine sed) [#/Area] 9-10 graded/HPF Invalid Interpretation Code [facility] UA Auto SS Glucose Ql (U) Negative Normal Negativemg/d L [facility] UA Auto SS Hemoglobin Auto test strip (U) [Mass/Vol] Trace mg/dL Invalid Interpretation Code Negativemg/d L [facility] UA Auto SS Ketones Auto test strip Ql (U) Negative Normal Negativemg/d L [facility] UA Auto SS Leukocyte esterase Auto test strip Ql (U) Negative Normal NegativeLeu/ uL [facility] UA Auto SS Mucus Auto Ql (U) 4+ graded/LPF Invalid Interpretation Code Negativegrad ed/LPF [facility] UA Auto SS Nitrite Auto test strip Ql (U) Negative Normal Negativemg/d L [facility] UA Auto SS pH (U) 5.5 *NA* (11/23/24 3:54 AM) Invalid Interpretation Code 5.0 - 9.0 [facility] UA Auto SS Protein Ql (U) Trace mg/dL Invalid Interpretation Code Negativemg/d L [facility] UA Auto SS RBC Ql (U) 4-20 graded/HPF Invalid Interpretation Code 0-3graded/HP F [facility] UA Auto SS Specific gravity (U) [Rel density] 1.040 *NA* (11/23/24 3:54 AM) Invalid Interpretation Code 1.005 - 1.030 [facility] UA Auto SS Urobilinogen (U) [Mass/Vol] 2 mg/dL Invalid Interpretation Code Negativemg/d L [facility] UA Auto SS WBC Auto (Urine sed) [#/Area] 6-15 graded/HPF Invalid Interpretation Code 0-5graded/HP F [facility] UA Auto SS URINALYSISOrdered By: Debra Juan on 11-23-2024 UA Spec Desc Clean Catch (11/23/24 3:54 AM) Normal [facility] UA Auto SS eGFRon 11-23-2024 eGFR 123 mL/min/1.73 m2 Normal >=59 [facility] Comment on above: Performed By: #### 1 [id number] #### [facility] [address] [place] [id number] XR knee LT 4V*on 06-11-2024 XR knee LT 4V* [facility] [address] [place] [address] XRay Report Signed Patient: Prudencio Jaramillo MR#: [id number] : 1995 Acct:[id number] Age/Sex: 28 / F ADM Date: 06/11/24 Loc: [id number] Room: Type: [facility] Attending Dr: Jessie Alvarado TEAM LEADER/RESEARCH PSYCHOLOGIST Copies to: Jessie Alvarado APRN Ordering Provider: [...] Burnett Jr., D.O.06/11/2024 11:05 AM Dictation Location: [place] [address] Transcribed By: [facility] 06/11/24 1105 Dictated By: Tk Burnett Jr, DO 06/11/24 110 Signed By: 06/11/24 110 Normal [facility] Alanine aminotransferase [En zymatic activity/volume] in Serum or PlasmaOrdered By: Elizabeth Cruz on 12-28-2023 ALT [Catalytic activity/Vol] 19 U/L Normal 7-52 [facility] Comment on above: Performed By: #### T SH3, LIPID, CBC, CMP wRFX A1C #### [address] Albumin [Mass/volume] in Ser um or Plasma by Bromocresol green (BCG) dye binding methoOrdered By: Elizabeth Cruz on 12-28-2023 Albumin BCG dye [Mass/Vol] 4.2 g/dL 3.5-5.7 [facility] Alkaline phosphatase [Enzyma tic activity/volume] in Serum or PlasmaOrdered By: Elizabeth Cruz on 12-28-2023 ALP [Catalytic activity/Vol] 75 U/L Normal 34-104 [facility] Comment on above: Performed By: #### T SH3, LIPID, CBC, CMP wRFX A1C #### [address] Aspartate aminotransferase [ Enzymatic activity/volume] in Serum or PlasmaOrdered By: Elizabeth Cruz on 12-28-2023 AST [Catalytic activity/Vol] 12 U/L Low 13-39 [facility] Comment on above: Performed By: #### T SH3, LIPID, CBC, CMP wRFX A1C #### [address] Automated basophil %Ordered By: Elizabeth Cruz on 12-28-2023 Basophils/100 WBC (Bld) 1.1 % Normal . [facility] Comment on above: Performed By: #### T SH3, LIPID, CBC, CMP wRFX A1C #### [address] Automated basophil countOrde red By: Elizabeth Cruz on 12-28-2023 Basophils (Bld) [#/Vol] 0.1 10*3/uL Normal 0.0-0.2 [facility] Comment on above: Result Comment: PERF ORMED BY: [place] [address] PATHOLOGIST CRANE MAN TERESO CANDELARIA M.D. Performed By: #### T SH3, LIPID, CBC, CMP wRFX A1C #### [address] Automated blood monocyte cou ntOrdered By: Elizabeth Cruz on 12-28-2023 Monocytes (Bld) [#/Vol] 0.6 10*3/uL Normal 0.0-0.8 [facility] Comment on above: Performed By: #### T SH3, LIPID, CBC, CMP wRFX A1C #### [address] Automated eosinophil %Ordere d By: Elizabeth Cruz on 12-28-2023 Eosinophils/100 WBC (Bld) 2.3 % Normal . [facility] Comment on above: Performed By: #### T SH3, LIPID, CBC, CMP wRFX A1C #### [address] Automated eosinophil countOr dered By: Elizabeth Cruz on 12-28-2023 Eosinophils (Bld) [#/Vol] 0.2 10*3/uL Normal 0.0-0.45 [facility] Comment on above: Performed By: #### T SH3, LIPID, CBC, CMP wRFX A1C #### [address] Automated monocyte %Ordered By: Elizabeth Cruz on 12-28-2023 Monocytes/100 WBC (Bld) 5.9 % Normal . [facility] Comment on above: Performed By: #### T SH3, LIPID, CBC, CMP wRFX A1C #### [address] Automated neutrophil %Ordere d By: Elizabeth Cruz on 12-28-2023 Neutrophils/100 WBC (Bld) 60.3 % Normal . [facility] Comment on above: Performed By: #### T SH3, LIPID, CBC, CMP wRFX A1C #### [address] Bilirubin.total [Mass/volume ] in Serum or PlasmaOrdered By: Elizabeth Cruz on 12-28-2023 Bilirubin [Mass/Vol] 0.4 mg/dL Normal 0.3-1.0 [facility] Comment on above: Performed By: #### T SH3, LIPID, CBC, CMP wRFX A1C #### [facility] [address] CMP with reflex to A1Con Albumin [Mass/Vol] 4.2 g/dL Normal 3.5-5.7 [facility] Comment on above: Performed By: #### T SH3, LIPID, CBC, CMP wRFX A1C #### [facility] [address] [place] [address] [place] GFR/1.73 sq M.predicted MDRD (S/P/Bld) [Vol rate/Area] mL/min/{1.73_m2} Normal [facility] Comment on above: Performed By: #### T SH3, LIPID, CBC, CMP wRFX A1C #### [facility] [address] [place] [address] [place] Calcium [Mass/volume] in Ser um or PlasmaOrdered By: Elizabeth Cruz on 12-28-2023 Calcium [Mass/Vol] 9.4 mg/dL Normal 8.6-10.3 [facility] Comment on above: Performed By: #### T SH3, LIPID, CBC, CMP wRFX A1C #### [address] Carbon dioxide, total [Moles /volume] in Serum or PlasmaOrdered By: Elizabeth Cruz on 12-28-2023 CO2 [Moles/Vol] 27.3 mmol/L Normal 21.0-31.0 [facility] Comment on above: Performed By: #### T SH3, LIPID, CBC, CMP wRFX A1C #### [facility] [address] [place] [address] [place] Chloride [Moles/volume] in S mar or PlasmaOrdered By: Elizabeth Cruz on 12-28-2023 Chloride [Moles/Vol] 107 mmol/L Normal 98-107 [facility] Comment on above: Performed By: #### T SH3, LIPID, CBC, CMP wRFX A1C #### [facility] [address] [place] [address] [place] Cholesterol [Mass/volume] in Serum or PlasmaOrdered By: Elizabeth Cruz on 12-28-2023 Cholesterol [Mass/Vol] 196 mg/dL Normal 140-200 [facility] Comment on above: Chol less than 200 m g/dl low riskChol 201-239 mg/dl borderline riskChol 240 mg/dl and greater high risk Result Comment: Chol less than 200 mg/dl low risk Chol 201-239 mg/dl borderline risk Chol 240 mg/dl and greater high risk Performed By: #### T SH3, LIPID, CBC, CMP wRFX A1C #### [facility] [address] [place] [address] [place] Cholesterol in LDL Calc [Mas s/Vol]Ordered By: Elizabeth Cruz on 12-28-2023 Cholesterol in LDL [Mass/Vol] 113 mg/dL 0-100 [facility] Comment on above: LDL ATP III CLASSIFI CATIONLDL less than 100 mg/dL OptimalLDL 100-129 mg/dL Near or above optimalLDL 130-159 mg/dL Borderline highLDL 160-189 mg/dL HighLDL greater than 189 mg/dL Very high Cholesterol in VLDL Calc [Ma ss/Vol]Ordered By: Elizabeth Cruz on 12-28-2023 Cholesterol in VLDL [Mass/Vol] 39 mg/dL [facility] Complete Blood Count Auto Di ffon 12-28-2023 Mean Corpuscular HGB Conc 31.6 g/dL Low 32.0-35.0 [facility] Comment on above: Performed By: #### T SH3, LIPID, CBC, CMP wRFX A1C #### [facility] [address] [place] [address] [place] NRBC% 0.0 /100{WBC} Normal 0-0.5 [facility] Comment on above: Performed By: #### T SH3, LIPID, CBC, CMP wRFX A1C #### [facility] [address] [place] [address] [place] Creatinine [Mass/volume] in Serum or PlasmaOrdered By: Elizabeth Cruz on 12-28-2023 Creatinine [Mass/Vol] 0.58 mg/dL Low 0.60-1.20 [facility] Comment on above: Performed By: #### T SH3, LIPID, CBC, CMP wRFX A1C #### [address] Erythrocyte distribution wid th [Ratio] by Automated countOrdered By: Elizabeth Cruz on 12-28-2023 Erythrocyte distribution width (RBC) [Ratio] 14.4 % Normal 11.9-15.3 [facility] Comment on above: Performed By: #### T SH3, LIPID, CBC, CMP wRFX A1C #### [address] Erythrocytes [#/volume] in B lood by Automated countOrdered By: Elizabeth Cruz on 12-28-2023 RBC (Bld) [#/Vol] 5.22 10*6/uL High 3.60-5.00 [facility] Comment on above: Performed By: #### T SH3, LIPID, CBC, CMP wRFX A1C #### [address] Glucose [Mass/volume] in Ser um or PlasmaOrdered By: Elizabeth Cruz on 12-28-2023 Glucose [Mass/Vol] 85 mg/dL Normal 70-100 [facility] Comment on above: Performed By: #### T SH3, LIPID, CBC, CMP wRFX A1C #### [address] Hematocrit [Volume Fraction] of Blood by Automated countOrdered By: Elizabeth Cruz on 12-28-2023 Hematocrit (Bld) [Volume fraction] 42.5 % Normal 34.0-46.4 [facility] Comment on above: Performed By: #### T SH3, LIPID, CBC, CMP wRFX A1C #### [address] Hemoglobin [Mass/volume] in BloodOrdered By: Elizabeth Cruz on 12-28-2023 Hemoglobin (Bld) [Mass/Vol] 13.4 g/dL Normal 11.8-15.4 [facility] Comment on above: Performed By: #### T SH3, LIPID, CBC, CMP wRFX A1C #### [facility] [address] Leukocytes [#/volume] correc carie for nucleated erythrocytes in Blood by Automated counOrdered By: Elizabeth Cruz on 12-28-2023 WBC corrected for nucl RBC Auto (Bld) [#/Vol] 9.6 10*3/uL 3.8-11.6 [facility] Leukocytes [#/volume] in Blo od by Automated countOrdered By: Elizabeth Cruz on 12-28-2023 WBC (Bld) [#/Vol] 9.6 10*3/uL Normal 3.8-11.6 [facility] Comment on above: Performed By: #### T SH3, LIPID, CBC, CMP wRFX A1C #### [facility] [address] Lipid Panelon 12-28-2023 LDL Cholesterol,Calculated 113 mg/dL High 0-100 [facility] Comment on above: Result Comment: LDL ATP III CLASSIFICATION LDL less than 100 mg/dL Optimal LDL 100-129 mg/dL Near or above optimal LDL 130-159 mg/dL Borderline high LDL 160-189 mg/dL High LDL greater than 189 mg/dL Very high Performed By: #### T SH3, LIPID, CBC, CMP wRFX A1C #### [facility] [address] Triglyceride w/Reflex 197 mg/dL High 0-149 [facility] Comment on above: Result Comment: TRIG ATP III CLASSIFICATION TRIG less than 150 mg/dL Normal TRIG 150-199 mg/dL Borderline high TRIG 200-500 mg/dL High TRIG greater than 500 mg/dL Very high Standard traceable to the Center for Disease Conrtrol and Prevention (CDC) test method. Performed By: #### T SH3, LIPID, CBC, CMP wRFX A1C #### [facility] [address] VLDL CHOLESTEROL 39 mg/dL Normal [facility] Comment on above: Performed By: #### T SH3, LIPID, CBC, CMP wRFX A1C #### [facility] [address] [place] [address] Lymphocytes [#/volume] in Bl ood by Automated countOrdered By: Elizabeth Cruz on 12-28-2023 Lymphocytes (Bld) [#/Vol] 2.9 10*3/uL Normal 1.00-4.8 [facility] Comment on above: Performed By: #### T SH3, LIPID, CBC, CMP wRFX A1C #### [address] Lymphocytes/100 leukocytes i n Blood by Automated countOrdered By: Elizabeth Cruz on 12-28-2023 Lymphocytes/100 WBC (Bld) 30.4 % Normal . [facility] Comment on above: Performed By: #### T SH3, LIPID, CBC, CMP wRFX A1C #### [address] MCH [Entitic mass] by Automa carie countOrdered By: Elizabeth Cruz on 12-28-2023 MCH (RBC) [Entitic mass] 25.8 pg Normal 24.7-34.3 [facility] Comment on above: Performed By: #### T SH3, LIPID, CBC, CMP wRFX A1C #### [address] MCHC Auto (RBC) [Mass/Vol]Or dered By: Elizabeth Cruz on 12-28-2023 MCHC (RBC) [Mass/Vol] 31.6 g/dL 32.0-35.0 [facility] MCV [Entitic volume] by Auto mated countOrdered By: Elizabeth Cruz on 12-28-2023 MCV (RBC) [Entitic vol] 81.5 fL Normal 80-100 [facility] Comment on above: Performed By: #### T SH3, LIPID, CBC, CMP wRFX A1C #### [place] [address] [place] Neutrophils [#/volume] in Bl ood by Automated countOrdered By: Elizabeth Cruz on 12-28-2023 Neutrophils (Bld) [#/Vol] 5.8 10*3/uL Normal 1.8-7.7 [facility] Comment on above: Performed By: #### T SH3, LIPID, CBC, CMP wRFX A1C #### [facility] [address] [place] [address] No Panel InformationOrdered By: Elizabeth Cruz on 12-28-2023 Estimated GFR (CKD-EPI) > 60.0 mL/Min [facility] Creatinine Clearance (Chem N/A [facility] Nucleated erythrocytes [Pres ence] in Blood by Automated countOrdered By: Elizabeth rCuz on 12-28-2023 Nucleated RBC Auto Ql (Bld) 0.0 /100{WBC} 0-0.5 [facility] Platelet mean volume [Entiti c volume] in Blood by Automated countOrdered By: Elizabeth Cruz on 12-28-2023 Platelet mean volume (Bld) [Entitic vol] 8.2 fL Normal 6.3-10.7 [facility] Comment on above: Performed By: #### T SH3, LIPID, CBC, CMP wRFX A1C #### [facility] [address] [place] [address] Platelets [#/volume] in Bloo d by Automated countOrdered By: Elizabeth Cruz on 12-28-2023 Platelets (Bld) [#/Vol] 310 10*3/uL Normal 150-450 [facility] Comment on above: Performed By: #### T SH3, LIPID, CBC, CMP wRFX A1C #### [facility] [address] [place] [address] [place] Potassium [Moles/volume] in Serum or PlasmaOrdered By: Elizabeth Cruz on 12-28-2023 Potassium [Moles/Vol] 4.3 mmol/L Normal 3.5-5.1 [facility] Comment on above: Performed By: #### T SH3, LIPID, CBC, CMP wRFX A1C #### [place] [address] [place] Protein [Mass/volume] in Ser um or PlasmaOrdered By: Elizabeth Cruz on 12-28-2023 Protein [Mass/Vol] 7.1 g/dL Normal 6.4-8.9 [facility] Comment on above: Performed By: #### T SH3, LIPID, CBC, CMP wRFX A1C #### [facility] [address] Serum globulin measurement b y calculation (mass/volume)Ordered By: Elizabeth Cruz on 12-28-2023 Globulin (S) [Mass/Vol] 2.9 g/dL Normal [facility] Comment on above: Performed By: #### T SH3, LIPID, CBC, CMP wRFX A1C #### [facility] [address] Serum or plasma albumin/glob ulin mass ratioOrdered By: Elizabeth Cruz on 12-28-2023 Albumin/Globulin [Mass ratio] 1.4 {ratio} Normal [facility] Comment on above: Performed By: #### T SH3, LIPID, CBC, CMP wRFX A1C #### [address] Serum or plasma anion gap de terminationOrdered By: Elizabeth Cruz on 12-28-2023 Anion gap [Moles/Vol] 10.0 mmol/L Normal 6.0-15.0 [facility] Comment on above: Performed By: #### T SH3, LIPID, CBC, CMP wRFX A1C #### [facility] [address] [place] [address] Serum or plasma high density lipoprotein (HDL) cholesterol measurementOrdered By: Elizabeth Cruz on 12-28-2023 Cholesterol in HDL [Mass/Vol] 44 mg/dL Normal 23-92 [facility] Comment on above: HDL CHOL ATP-III CLA SSIFICATION Cardiovascular RiskHDL > or equal to 60 mg/dL LOWHDL < 40 mg/dL HIGH Result Comment: HDL CHOL ATP-III CLASSIFICATION Cardiovascular Risk HDL > or equal to 60 mg/dL LOW HDL < 40 mg/dL HIGH Performed By: #### T SH3, LIPID, CBC, CMP wRFX A1C #### [facility] [address] [place] [address] Serum or plasma total choles terol/high density lipoprotein (HDL) cholesterol mass ratOrdered By: Elizabeth Cruz on 12-28-2023 Cholesterol.total/Raina sterol in HDL [Mass ratio] 4.5 {ratio} Normal <5.0 [facility] Comment on above: Performed By: #### T SH3, LIPID, CBC, CMP wRFX A1C #### [facility] [address] [place] [address] [place] Sodium [Moles/volume] in Ser um or PlasmaOrdered By: Elizabeth Cruz on 12-28-2023 Sodium [Moles/Vol] 140 mmol/L Normal 136-145 [facility] Comment on above: Performed By: #### T SH3, LIPID, CBC, CMP wRFX A1C #### [address] Thyrotropin [Units/volume] i n Serum or PlasmaOrdered By: Elizabeth Cruz on 12-28-2023 TSH Qn 1.14 m[IU]/L Normal 0.45-5.33 [facility] Comment on above: Result Comment: PERF ORMED BY: [place] [address] PATHOLOGIST CRANE MAN TERESO CANDELARIA M.D. Performed By: #### T SH3, LIPID, CBC, CMP wRFX A1C #### [address] Triglyceride [Mass/volume] i n Serum or PlasmaOrdered By: Elizabeth Cruz on 12-28-2023 Triglyceride [Mass/Vol] 197 mg/dL 0-149 [facility] Comment on above: TRIG ATP III CLASSIF ICATIONTRIG less than 150 mg/dL NormalTRIG 150-199 mg/dL Borderline highTRIG 200-500 mg/dL High TRIG greater than 500 mg/dL Very highStandard traceable to the Center for Disease Conrtrol and Prevention (CDC) test method. Urea nitrogen [Mass/volume] in Serum or PlasmaOrdered By: Elizabeth Cruz on 12-28-2023 Urea nitrogen [Mass/Vol] 12 mg/dL Normal 7-25 [facility] Comment on above: Performed By: #### T SH3, LIPID, CBC, CMP wRFX A1C #### [facility] [address] Grp A Strp PCRon 12-20-2023 Grp A Strp Intrl Ctrl Pass Normal [facility] Comment on above: Performed By: #### 1 [id number] #### [facility] [address] [place] [address] S. pyogenes DNA HILDA+probe Ql (Throat) Negative Normal [facility] Comment on above: Result Comment: Test ing performed using DNA amplification. Performed By: #### 1 [id number] #### [facility] [address] [place] [address] Family Medicine Office/Clini c Noteon 12-19-2023 Family [...] agree with above documented HPI by medical doctor nuclear medicine. Portions of this record may have been created with voice recognition artificial intelligence software, specifically BaseKit, Active DSP and or CoNarrative. Substitutions may have occurred due to the inherent limitations of voice recognition and artificial intelligence software. Patient is a 28-year-old female presents to convenient care, for sore throat, sinus congestion, right ear pain. Patient states symptoms started less than a week ago, had fever, chills, nausea, dizziness, headaches, states she states those symptoms improved with the exception of the sore throat and the right ear pain, states she has no left ear pain, patient states she been taking cxyf-fcx-iclpqmh Tylenol for fevers and pain, has not taken any today, states she has been trying to take twfa-pfx-cyjvros Mucinex relief without any improvement, states she [...] complete sentences, and follows commands appropriately. Head: Normocephalic/atrauma tic. Positive upper respiratory infections. Eyes: Pupils equal, [...] fever, states she has not taken any vlvh-mst-wfafbec ibuprofen or Tylenol today, states she went [...] day or 2. 28-year-old female presented to [facility] care, for acute pharyngitis, Zelal[place] media, sinus congestion, symptoms started about a week ago, worsening symptoms as of last night, patient did appear ill but not septic, no difficulty swallowing, respiratory distress, cough, chest pain, shortness of breath, abdominal pain. Patient was given a prescription for Zithromax and prednisone, has no history of diabetes, instructed to take pkzv-kpr-iufgsty ibuprofen and Tylenol every 8 hours for fever, body aches, and pain. Drink plenty water stay hydrated. Declined a work excuse note. Follow-up with primary care provider as needed. 1. Acute pharyngitis (J02.9: Acute pharyngitis, unspecified) See above Ordered: azithromycin, 500 mg = 1 tab(s), Oral, Daily, X 5 day(s), # 5 tab(s), Refills(s) 0, [id number], cm, 12/19/23 12:54:00 EDT, Height/Length Dosing, 127.3, kg, 12/19/23 12:54:00 EDT, Weight Dosing predniSONE, 40 mg = 2 tab(s), Oral, Daily, X 5 day(s), # 10 tab(s), Refills(s) 0, [id number], cm, 12/19/23 12:54:00 EDT, Height/Length Dosing, 127.3, kg, 12/19/23 12:54:00 EDT, Weight Dosing Rapid Strep POC 62717 2. Ri (more content not included)... Normal [facility] Comment on above: Result Comment: Elec tronically Signed By: HUY VICTORIA, ALEXEI\.br\Date and Time Signed: 12/19/23 13:22 EDT Patient [...] Follow these instructions at home: ? Take eylq-tto-thguyfk and prescription medicines only as told by [...] provider. Document Revised: 01/02/2022 Document Reviewed: 01/02/2022 [employer] Patient Education ? 2022 [employer]. Infectious Disease Pharyngitis Pharyngitis is a sore [...] these instructions at home: Medicines ? Take sdux-cry-btehqoy and prescription medicines only as told by your doctor. ? If you were prescribed an antibiotic medicine, take it as told by your doctor. Do not stop taking the antibiotic even if you start to feel better. ? Use throat lozenges or (more content not included)... Normal [facility] [place] CHOLANGIOGRAM ORon 2022 [place] CHOLANGIOGRAM OR [...] Kirsten Shelton DO 05/28/23 Final result Normal [facility] OPERATIVE [place] [address] OPERATIVE REPORT PATIENT NAME: PRUDENCIO JARAMILLO : 1995 MED REC NO: [id number] ROOM: ACCOUNT NO: [id number] ADMIT DATE: 05/28/2023 PROVIDER: Elsa Scott MD DATE OF PROCEDURE: 05/28/2023 PREOPERATIVE DIAGNOSIS: Eaezq-vt-amaswqh cholecystitis. PREOPERATIVE DIAGNOSIS: Srygq-ly-psvphqq cholecystitis. PROCEDURES PERFORMED: 1. Laparoscopic cholecystectomy. 2. Intraoperative cholangiogram. SURGEON: Elsa Scott MD HAND MITER OPERATOR: Ms. Castro. ANESTHESIA: 1. General endotracheal anesthesia. 2. Bilateral TAP block. ESTIMATED BLOOD LOSS: 25 mL. SPECIMENS: Gallbladder. COMPLICATIONS: None. INDICATIONS: This is a 27-year-old female with clinical history, physical exam, and imaging consistent with bsiuj-yh-wtuwghf cholecystitis secondary to gallstones. Risks and benefits [...] postop monitoring. ELSA SCOTT MD [id number] Doc#: [id number] CC: [facility] Surgical Specimenon 05-28-20 Surgical Specimen [facility] [address] [place] [address] FINAL SURGICAL PATHOLOGY REPORT Patient Name: PRUDENCIO JARAMILLO Accession No: [id number] Age Sex: 1995 Location: [facility] Account No: [id number] Collected: 05/28/2023 Med Rec No: [id number] Received: 05/29/2023 Attend Phys: ELSA SCOTT Completed: 05/30/2023 Perform Phys: ELSA SCOTT FINAL DIAGNOSIS: CHOLECYSTECTOMY: CHRONIC CHOLECYSTITIS CHOLELITHIASIS COMMENT: A SMALL AMOUNT OF ADHERENT HEPATIC PARENCHYMA IS NOTED. JOSE/JOSE CLINICAL INFORMATION: Procedure: Laparoscopic, possible open cholecystectomy [...] the gallbladder is 0.2 cm in thickness. Theatre Director sections are submitted in three cassettes. The resection margin is in cassette 1. JOSE/SHAYE CPT: 37000 X1 J DENYS DAVIS M.D. 05/30/2023 Electronically signed out by Page 1 of 1 Invalid Interpretation Code [facility] Comment on above: Performed By: #### S UR #### [facility] [address] [address] CBC W Auto Differential pane l (Bld)on 05-18-2023 Basophils (Bld) [#/Vol] 0.1 10*3/uL 0.0 - 0.2 K/uL [facility] Basophils/100 WBC (Bld) 0.6 % B [facility] Eosinophils (Bld) [#/Vol] 0.2 10*3/uL 0.0 - 0.7 K/uL [facility] Eosinophils/100 WBC (Bld) 1.9 % [facility] Erythrocyte distribution width (RBC) [Ratio] 14.7 % High 11.5 - 14.5 % [facility] Hematocrit (Bld) [Volume fraction] 37.6 % 37.0 - 47.0 % [facility] Hemoglobin (Bld) [Mass/Vol] 12.2 g/dL 12.0 - 16.0 g/dL [facility] Interpretation and review of laboratory results Abnormal [facility] Lymphocytes (Bld) [#/Vol] 3.2 10*3/uL 1.0 - 4.8 K/uL [facility] Lymphocytes/100 WBC (Bld) 26.4 % [facility] MCH (RBC) [Entitic mass] 26.4 pg Low 27.0 - 31.3 pg [facility] MCHC (RBC) [Mass/Vol] 32.4 % Low 33.0 - 37.0 % [facility] MCV (RBC) [Entitic vol] 81.4 fL 79.4 - 94.8 fL [facility] Monocytes (Bld) [#/Vol] 0.8 10*3/uL 0.2 - 0.8 K/uL [facility] Monocytes/100 WBC (Bld) 6.5 % B [facility] Neutrophils (Bld) [#/Vol] 7.7 10*3/uL High 1.4 - 6.5 K/uL [facility] Platelets (Bld) [#/Vol] 278 10*3/uL 130 - 400 K/uL [facility] RBC (Bld) [#/Vol] 4.62 10*6/uL [facility] Segmented neutrophils/100 WBC (Bld) 64.6 % [facility] WBC (Bld) [#/Vol] 12.0 10*3/uL High 4.8 - 10.8 K/uL [facility] CBC With Platelet and Differ entialon 05-18-2023 Basophils (Bld) [#/Vol] 0.1 10*3/uL Normal 0.0-0.2 [facility] Comment on above: Performed By: #### C BCWD #### [facility] [address] [place] [address] Basophils/100 WBC (Bld) 0.6 % Normal [facility] Comment on above: Performed By: #### C BCWD #### [facility] [address] [place] [address] Eosinophils (Bld) [#/Vol] 0.2 10*3/uL Normal 0.0-0.7 [facility] Comment on above: Performed By: #### C BCWD #### [facility] [address] [place] [address] Eosinophils/100 WBC (Bld) 1.9 % Normal [facility] Comment on above: Performed By: #### C BCWD #### [facility] [address] [place] [address] Erythrocyte distribution width (RBC) [Ratio] 14.7 % Critically high 11.5-14.5 [facility] Comment on above: Performed By: #### C BCWD #### [facility] [address] [place] [address] Hematocrit (Bld) [Volume fraction] 37.6 % Normal 37.0-47.0 [facility] Comment on above: Performed By: #### C BCWD #### [facility] [address] [place] [address] Hemoglobin (Bld) [Mass/Vol] 12.2 g/dL Normal 12.0-16.0 [facility] Comment on above: Performed By: #### C BCWD #### [facility] [address] [place] [address] Lymphocytes (Bld) [#/Vol] 3.2 10*3/uL Normal 1.0-4.8 [facility] Comment on above: Performed By: #### C BCWD #### [facility] [address] [place] [address] Lymphocytes/100 WBC (Bld) 26.4 % Normal [facility] Comment on above: Performed By: #### C BCWD #### [facility] [address] [place] [address] MCH (RBC) [Entitic mass] 26.4 pg Low 27.0-31.3 [facility] Comment on above: Performed By: #### C BCWD #### [facility] [address] [place] [address] MCHC 32.4 % Low 33.0-37.0 [facility] Comment on above: Performed By: #### C BCWD #### [facility] [address] [place] [address] MCV (RBC) [Entitic vol] 81.4 fL Normal 79.4-94.8 [facility] Comment on above: Performed By: #### C BCWD #### [facility] [address] [place] [address] Monocytes (Bld) [#/Vol] 0.8 10*3/uL Normal 0.2-0.8 [facility] Comment on above: Performed By: #### C BCWD #### [facility] [address] [place] [address] Monocytes/100 WBC (Bld) 6.5 % Normal [facility] Comment on above: Performed By: #### C BCWD #### [facility] [address] [place] [address] Neutrophils (Bld) [#/Vol] 7.7 10*3/uL Critically high 1.4-6.5 [facility] Comment on above: Performed By: #### C BCWD #### [facility] [address] [place] [address] Neutrophils/100 WBC (Bld) 64.6 % Normal [facility] Comment on above: Performed By: #### C BCWD #### [facility] [address] [place] [address] Platelets (Bld) [#/Vol] 278 10*3/uL Normal 130-400 [facility] Comment on above: Performed By: #### C BCWD #### [facility] [address] [place] [address] RBC (Bld) [#/Vol] 4.62 10*6/uL Normal 4.20-5.40 [facility] Comment on above: Performed By: #### C BCWD #### [facility] [address] [place] [address] WBC (Bld) [#/Vol] 12.0 10*3/uL Critically high 4.8-10.8 [facility] Comment on above: Performed By: #### C BCWD #### [facility] [address] [place] [address] [address] ABDOMEN PELVIS W IV CONTR Joselo [...] multiple follicles identified in the ovaries bilaterally. Peritoneum/Retroperit oneum: No abdominal or retroperitoneal lymphadenopathy. No free [...] Vicky Nieto MD 05/19/23 Final result Normal [facility] Comprehensive Metabolic Pane anshu 05-18-2023 Albumin [Mass/Vol] 3.9 g/dL Normal 3.5-4.6 [facility] Comment on above: Performed By: #### C MP #### [facility] [address] [place] [address] ALP [Catalytic activity/Vol] 91 U/L Normal 40-130 [facility] Comment on above: Performed By: #### C MP #### [facility] [address] [place] [address] ALT [Catalytic activity/Vol] 15 U/L Normal 0-33 [facility] Comment on above: Performed By: #### C MP #### [facility] [address] [place] [address] Anion gap [Moles/Vol] 12 mmol/L Normal 9-15 [facility] Comment on above: Performed By: #### C MP #### [facility] [address] [place] [address] AST [Catalytic activity/Vol] 27 U/L Normal 0-35 [facility] Comment on above: Performed By: #### C MP #### [facility] [address] [place] [address] Bilirubin [Mass/Vol] mg/dL Normal 0.2-0.7 [facility] Comment on above: Performed By: #### C MP #### [facility] [address] [place] [address] Calcium [Mass/Vol] 9.4 mg/dL Normal 8.5-9.9 [facility] Comment on above: Performed By: #### C MP #### [facility] [address] [place] [address] Chloride [Moles/Vol] 104 mmol/L Normal 95-107 [facility] Comment on above: Performed By: #### C MP #### [facility] [address] [place] [address] CO2 [Moles/Vol] 24 mmol/L Normal 20-31 [facility] Comment on above: Performed By: #### C MP #### [facility] [address] [place] [address] Creatinine [Mass/Vol] 0.56 mg/dL Normal 0.50-0.90 [facility] Comment on above: Performed By: #### C MP #### [facility] [address] [place] [address] GFR >60.0 Normal >60 [facility] Comment on above: Result Comment: Pedi atric calculator link https://www.kidney.org/professionals/kdoqi/gfr_calculatorped Effective Jul 10, [...] secretion. Performed By: #### C MP #### [facility] [address] [place] [address] Globulin (S) [Mass/Vol] 3.2 g/dL Normal 2.3-3.5 [facility] Comment on above: Performed By: #### C MP #### [facility] [address] [place] [address] Glucose [Mass/Vol] 89 mg/dL Normal 70-99 [facility] Comment on above: Performed By: #### C MP #### [facility] [address] [place] [address] Potassium [Moles/Vol] 3.8 mmol/L Normal 3.4-4.9 [facility] Comment on above: Performed By: #### C MP #### [facility] [address] [place] [address] Protein [Mass/Vol] 7.1 g/dL Normal 6.3-8.0 [facility] Comment on above: Performed By: #### C MP #### [facility] [address] [place] [address] Sodium [Moles/Vol] 140 mmol/L Normal 135-144 [facility] Comment on above: Performed By: #### C MP #### [facility] [address] [place] [address] Urea nitrogen [Mass/Vol] 15 mg/dL Normal 6-20 [facility] Comment on above: Performed By: #### C MP #### [facility] [address] [place] [address] Comprehensive metabolic 2000 panelon 05-18-2023 Albumin [Mass/Vol] 3.9 g/dL 3.5 - 4.6 g/dL [facility] ALP [Catalytic activity/Vol] 91 U/L 40 - 130 U/L [facility] ALT [Catalytic activity/Vol] 15 U/L 0 - 33 U/L [facility] Anion gap [Moles/Vol] 12 mmol/L [facility] AST [Catalytic activity/Vol] 27 U/L 0 - 35 U/L [facility] Bilirubin [Mass/Vol] mg/dL 0.2 - 0 .7 mg/dL [facility] Calcium [Mass/Vol] 9.4 mg/dL 8.5 - 9.9 mg/dL [facility] Chloride [Moles/Vol] 104 mmol/L [facility] CO2 [Moles/Vol] 24 mmol/L [facility] Creatinine [Mass/Vol] 0.56 mg/dL 0.50 - 0.90 mg/dL [facility] GFR/1.73 sq M.predicted among non-blacks MDRD (S/P/Bld) [Vol rate/Area] 60 - PINF [facility] Comment on above: Pediatric calculator link [...] [Mass/Vol] 3.2 g/dL 2.3 - 3.5 g/dL [facility] Glucose [Mass/Vol] 89 mg/dL 70 - 99 mg/dL [facility] Potassium [Moles/Vol] 3.8 mmol/L [facility] Protein [Mass/Vol] 7.1 g/dL 6.3 - 8.0 g/dL [facility] Sodium [Moles/Vol] 140 mmol/L [facility] Urea nitrogen [Mass/Vol] 15 mg/dL 6 - 20 mg/dL [facility] Lipaseon 05-18-2023 Lipase [Catalytic activity/Vol] 23 U/L Normal 12-95 [facility] Comment on above: Performed By: #### L IPAS #### [facility] [address] [place] [phone] Lipase [Catalytic activity/Vol] 23 U/L 12 - 95 U/L [facility] No Panel Informationon 05-18 [facility] POCT Creatinineon 05-18-2023 Interpretation and review of laboratory results Normal [facility] POC CREATININE WHOLE BLOOD 0.6 [facility] POCT Venouson 05-18-2023 Creatinine [Mass/Vol] 0.6 mg/dL Normal 0.6-1.2 [facility] Comment on above: Performed By: #### P PORTER #### [facility] [address] [place] [address] GFR >60 Normal >60 [facility] Comment on [...] secretion. Performed By: #### P PORTER #### [facility] [address] [place] [address] POC Performed on SEE BELOW Normal [facility] Comment on above: Result Comment: Perf ormed on POC Performed By: #### P PORTER #### [facility] [address] [place] [address] POC Sample Type PORTER Normal [facility] Comment on above: Performed By: #### P PORTER #### [facility] [address] [place] [address] Troponinon 05-18-2023 Troponin I.cardiac [Mass/Vol] ng/mL Normal 0.000-0.01 [facility] Comment on above: Result Comment: Meth odology by Troponin T. Performed By: #### T ROP #### [facility] [address] [place] [address] Troponin T.cardiac [Mass/Vol] ng/mL 0.000 - 0.010 ng/mL [facility] Comment on above: Methodology by Radha brooke T. Troponin T.cardiac [Mass/Vol ]on 05-18-2023 [facility] US ABDOMEN LIMITEDon 023 US ABDOMEN [...] Kirsten Pardo MD 05/18/23 Final result Normal [facility] Cholelithiasis. No gallbladder wall thickening or pericholecystic fluid. Mildly dilated common duct at 8.1 mm. [facility] RADIOLOGY EXAMINATION: RIGHT UPPER QUADRANT ULTRASOUND [...] No evidence of right upper quadrant ascites. [facility] RADIOLOGY Kirsten Pardo MD - 05/18/2023 [...] Mildly dilated common duct at 8.1 mm. [facility] Radiology Study observation (narrative) [facility] [employer] US ABDOMEN LIMITEDOrdered By : Kirsten Pardo on 05-18-[address] [facility] [employer] Work Phone: Covid-19 PCR (CVDTB)on SARS-CoV-2 (COVID-19) RNA HILDA+probe Ql (Unsp spec) Not detected Normal NOT DETECTED [facility] Comment on above: Result Comment: This test is not yet approved or cleared by the [place] FDA. When there are no FDA-approved or cleared tests available, and other criteria are met, FDA can make tests available under an emergency access mechanism called an Emergency Use Authorization (EUA). The EUA for this test is supported by the Professor Of Theater of Health and Human Service's (HHS's) declaration [...] SARS-CoV-2. Performed By: #### C BC #### [facility] [address] [place], [place] [address] Dr. Zari Butcher CBC AUTO DIFFon 11-07-2022 BASO # 0.0 103/ul Normal 0.0-0.1 [facility] Comment on above: Performed By: #### C BC ####[facility] [address] [place], [place] [address]YrDr. Zari Butcher Basophils/100 WBC (Bld) 0.4 % Normal 0.2-2.0 [facility] Comment on above: Performed By: #### C BC ####[facility] [address] [address]Dr. Zari Butcher EO # 0.3 103/ul Normal 0.0-0.7 [facility] Comment on above: Performed By: #### C BC ####[facility] [address] [place], [place] [address]Dr. Zari Butcher Eosinophils/100 WBC (Bld) 2.9 % Normal 0.9-7.0 [facility] Comment on above: Performed By: #### C BC ####[facility] [address] [place], [place] [address]Dr. Zari Butcher Erythrocyte distribution width (RBC) [Ratio] 13.9 % Normal 11.0-15.0 [facility] Comment on above: Performed By: #### C BC ####[facility] [address] [place], [place] [address]Dr. Zari Butcher Hematocrit (Bld) [Volume fraction] 38.4 % Normal 36.0-48.0 [facility] Comment on above: Performed By: #### C BC ####[facility] [address] [place], [place] [address]Dr. Zari Butcher Hemoglobin (Bld) [Mass/Vol] 12.0 g/dL Normal 12.0-16.0 [facility] Comment on above: Performed By: #### C BC ####[facility] [address] [place], [place] [address]Dr. Zari Hadley IG # 0.03 10e3/ul Normal 0.00-0.03 [facility] Comment on above: Performed By: #### C BC ####[facility] [address] [place], [place] [address]Dr. Franchescacarolyn Butcher IG % 0.3 % Normal 0.0-0.5 [facility] Comment on above: Performed By: #### C BC ####[facility] [address] [place], [place] [address]Dr. Zari Butcher LYMPH # 2.9 103/ul Normal 1.2-3.8 [facility] Comment on above: Performed By: #### C BC ####[facility] [address] [address]Dr. Franchescacarolyn Butcher Lymphocytes/100 WBC (Bld) 30.5 % Normal 20.5-60.0 [facility] Comment on above: Performed By: #### C BC ####[facility] [address] [address]Dr. Zari Butcher MANUAL DIFF REQ NO Normal [facility] Comment on above: Performed By: #### C BC ####[facility] [address] [address]Dr. Zari Butcher MCH (RBC) [Entitic mass] 25.8 pg Critically low 26.7-34.0 [facility] Comment on above: Performed By: #### C BC ####[facility] [address] [address]Dr. Zari Butcher MCHC (RBC) [Mass/Vol] 31.3 g/dL Normal 29.9-35.2 [facility] Comment on above: Performed By: #### C BC ####[facility] [address] [address]Dr. Zari Butcher MCV (RBC) [Entitic vol] 82.4 fL Normal 81.0-99.0 [facility] Comment on above: Performed By: #### C BC ####[facility] [address] [address]Dr. Zari Butcher MONO # 0.5 103/ul Normal 0.3-0.8 [facility] Comment on above: Performed By: #### C BC ####[facility] [address] [address]Dr. Zari Butcher Monocytes/100 WBC (Bld) 5.5 % Normal 1.7-12.0 [facility] Comment on above: Performed By: #### C BC ####[facility] [address] [address]DrFrancesca Butcher NEUT # 5.7 103/ul Normal 1.4-6.5 [facility] Comment on above: Performed By: #### C BC ####[facility] [address] [address]Dr. Zari Butcher Neutrophils/100 WBC (Bld) 60.4 % Normal 43.0-75.0 [facility] Comment on above: Performed By: #### C BC ####[facility] [address] [address]Dr. Zari Butcher Platelet mean volume (Bld) [Entitic vol] 10.3 fL Normal 9.5-13.5 [facility] Comment on above: Performed By: #### C BC ####[facility] [address] [address]Dr. Zari Butcher PLT 358 103/ul Normal 150-450 [facility] Comment on above: Performed By: #### C BC ####[facility] [address] [address]Dr. Zari Butcher RBC 4.66 106/ul Normal 4.20-5.40 [facility] Comment on above: Performed By: #### C BC ####[facility] [address] [address]Dr. Zari Butcher WBC 9.5 103/ul Normal 4.0-11.0 [facility] Comment on above: Performed By: #### C BC ####[facility] [address] [address]Dr. Zari Butcher [facility]-10 SARS-CoV-2 (COVID-19) RNA HILDA+probe Ql (Unsp spec) Not detected Normal NOT DETECTED [facility] Comment on above: Result Comment: This test is not yet approved or cleared by the [place] FDA. When there are no FDA-approved or cleared tests available, and other criteria are met, FDA can make tests available under an emergency access mechanism called an Emergency Use Authorization (EUA). The EUA for this test is supported by the Professor Of Theater of Health and Human Service's (HHS's) declaration [...] SARS-CoV-2. Performed By: #### C VDTBH #### [facility] [address] [place] [address] Dr. Zari Butcher PREG QUANT HCGon 11-07-2022 HCG QUANT <1 Normal [facility] Comment on above: Performed By: #### P REGQNT ####[facility] [address] [place], [place] [address]Dr. Zari Butcher HCG RANGE SEE BELOW Normal [facility] Comment on above: Result Comment: 5-50 0.2-1 WEEK 50-500 1-2 WEEKS 100-5,000 2-3 WEEKS 500-10,000 3-4 WEEKS 1,000-50,000 4-5 WEEKS 10,000-100,000 5-6 WEEKS 15,000-200,000 6-8 WEEKS 10,000-100,000 2-3 MONTHS Performed By: #### P REGQNT ####[facility] [address] [place], [place] [address]Dr. Zari Butcher CBC AUTO DIFFon 09-21-2022 BASO # 0.0 103/ul Normal 0.0-0.1 [facility] Comment on above: Performed By: #### C BC #### [facility] [address] [place] [address] Dr. Zari Butcher Basophils/100 WBC (Bld) 0.3 % Normal 0.2-2.0 [facility] Comment on above: Performed By: #### C BC #### [facility] [address] [place] [address] Dr. Zari Butcher EO # 0.8 103/ul Critically high 0.0-0.7 [facility] Comment on above: Performed By: #### C BC #### [facility] [address] [address] [address] Zari Butcher Eosinophils/100 WBC (Bld) 7.5 % Critically high 0.9-7.0 [facility] Comment on above: Performed By: #### C BC #### [facility] [address] [place] [address] Dr. Zari Butcher Erythrocyte distribution width (RBC) [Ratio] 14.5 % Normal 11.0-15.0 [facility] Comment on above: Performed By: #### C BC #### [facility] [address] [place] [address] Dr. Zari Butcher Hematocrit (Bld) [Volume fraction] 27.9 % Critically low 36.0-48.0 [facility] Comment on above: Performed By: #### C BC #### [facility] [address] [place] [address] Dr. Zari Butcher Hemoglobin (Bld) [Mass/Vol] 9.0 g/dL Critically low 12.0-16.0 [facility] Comment on above: Performed By: #### C BC #### [facility] [address] [place] [address] Dr. Zari Butcher IG # 0.06 10e3/ul Critically high 0.00-0.03 [facility] Comment on above: Performed By: #### C BC #### [facility] [address] [place] [address] Dr. Zari Butcher IG % 0.6 % Critically high 0.0-0.5 [facility] Comment on above: Performed By: #### C BC #### [facility] [address] [place] [address] Dr. Zari Butcher LYMPH # 2.6 103/ul Normal 1.2-3.8 [facility] Comment on above: Performed By: #### C BC #### [facility] [facility] [address] [place] [address] Dr. Zari Butcher Lymphocytes/100 WBC (Bld) 24.3 % Normal 20.5-60.0 [facility] Comment on above: Performed By: #### C BC #### [facility] [address] [place] [address] Dr. Zari Butcher MANUAL DIFF REQ NO Normal [facility] Comment on above: Performed By: #### C BC #### [facility] [address] [place] [address] Dr. Zari Butcher MCH (RBC) [Entitic mass] 28.0 pg Normal 26.7-34.0 [facility] Comment on above: Performed By: #### C BC #### [facility] [address] [place] [address] Dr. Zari Butcher MCHC (RBC) [Mass/Vol] 32.3 g/dL Normal 29.9-35.2 [facility] Comment on above: Performed By: #### C BC #### [facility] [address] [place] [address] Dr. Zari Butcher MCV (RBC) [Entitic vol] 86.9 fL Normal 81.0-99.0 [facility] Comment on above: Performed By: #### C BC #### [facility] [address] [place] [address] Dr. Zari Butcher MONO # 0.6 103/ul Normal 0.3-0.8 [facility] Comment on above: Performed By: #### C BC #### [facility] [address] [place] [address] Dr. Zari Butcher Monocytes/100 WBC (Bld) 5.3 % Normal 1.7-12.0 [facility] Comment on above: Performed By: #### C BC #### [facility] [address] [place] [address] Dr. Zari Butcher NEUT # 6.7 103/ul Critically high 1.4-6.5 [facility] Comment on above: Performed By: #### C BC #### [facility] [address] [place] [address] Dr. Zari Butcher Neutrophils/100 WBC (Bld) 62.0 % Normal 43.0-75.0 [facility] Comment on above: Performed By: #### C BC #### [facility] [address] [address] [address] Zari Butcher Platelet mean volume (Bld) [Entitic vol] 10.5 fL Normal 9.5-13.5 [facility] Comment on above: Performed By: #### C BC #### [facility] [address] [address] [address] Zari Butcher PLT 286 103/ul Normal 150-450 [facility] Comment on above: Performed By: #### C BC #### [facility] [address] [address] [address] Zari Butcher RBC 3.21 106/ul Critically low 4.20-5.40 [facility] Comment on above: Performed By: #### C BC #### [facility] [address] [address] [address] Zari Butcher WBC 10.7 103/ul Normal 4.0-11.0 [facility] Comment on above: Performed By: #### C BC #### [facility] [address] [address] [address] Zari Butcher PROF CHEM 8 (BAS METB)on Anion gap [Moles/Vol] 11.1 mmol/L Normal [facility] Comment on above: Performed By: #### B MP ####[facility] [address] [address]DrFrancesca Butcher Calcium [Mass/Vol] 8.4 mg/dL Critically low 8.5-10.1 [facility] Comment on above: Performed By: #### B MP ####[facility] [address] [address]DrFrancesca Butcher Chloride [Moles/Vol] 105 mmol/L Normal 98-107 [facility] Comment on above: Performed By: #### B MP ####[facility] [address] [address]DrFrancesca Butcher CO2 [Moles/Vol] 26.2 mmol/L Normal 21.0-32.0 [facility] Comment on above: Performed By: #### B MP ####[facility] [address] [address]Dr. Zari Butcher Creatinine [Mass/Vol] 0.49 mg/dL Critically low 0.55-1.02 [facility] Comment on above: Performed By: #### B MP ####[facility] [address] [address]Dr. Zari Butcher EGFR-AF BURKINAN >60 Normal >=60 [facility] Comment on above: Performed By: #### B MP ####[facility] [address] [address]Dr. Zari Butcher EGFR-NON AF BURKINAN >60 Normal >=60 [facility] Comment on above: Performed By: #### B MP ####[facility] [address] [place], [place] [address]Dr. Zari Butcher Glucose [Mass/Vol] 75 mg/dL Normal 74-106 [facility] Comment on above: Performed By: #### B MP ####[facility] [address] [place], [place] [address]Dr. Zari Butcher Potassium [Moles/Vol] 3.3 mmol/L Critically low 3.5-5.1 [facility] Comment on above: Performed By: #### B MP ####[facility] [address] [place], [place] [address]Dr. Zari Butcher Sodium [Moles/Vol] 139 mmol/L Normal 136-145 [facility] Comment on above: Performed By: #### B MP ####[facility] [address] [place], [place] [address]Dr. Zari Butcher Urea nitrogen [Mass/Vol] 7.0 mg/dL Normal 7.0-18.0 [facility] Comment on above: Performed By: #### B MP ####[facility] [address] [place], [place] [address]Dr. Franchescacarolyn Butcher Urea nitrogen/Creatinine [Mass ratio] 14.3 mg/mg Normal [facility] Comment on above: Performed By: #### B MP ####[facility] [address] [place], [place] [address]Dr. Zari Butcher CBC AUTO DIFFon 09-19-2022 BASO # 0.0 103/ul Normal 0.0-0.1 [facility] Comment on above: Performed By: #### C BC #### [facility] [address] [address] [address] Zari Butcher Basophils/100 WBC (Bld) 0.3 % Normal 0.2-2.0 [facility] Comment on above: Performed By: #### C BC #### [facility] [address] [address] [address] Zari Butcher EO # 0.2 103/ul Normal 0.0-0.7 [facility] Comment on above: Performed By: #### C BC #### [facility] [address] [place] [address] Dr. Zari Butcher Eosinophils/100 WBC (Bld) 1.5 % Normal 0.9-7.0 [facility] Comment on above: Performed By: #### C BC #### [facility] [address] [address] [address] Zari Butcher Erythrocyte distribution width (RBC) [Ratio] 14.9 % Normal 11.0-15.0 [facility] Comment on above: Performed By: #### C BC #### [facility] [address] [place] [address] Dr. Zari Butcher Hematocrit (Bld) [Volume fraction] 27.3 % Critically low 36.0-48.0 [facility] Comment on above: Performed By: #### C BC #### [facility] [address] [place] [address] Dr. Zari Butcher Hemoglobin (Bld) [Mass/Vol] 8.7 g/dL Critically low 12.0-16.0 [facility] Comment on above: Performed By: #### C BC #### [facility] [address] [address] [address] Zari Butcher IG # 0.05 10e3/ul Critically high 0.00-0.03 [facility] Comment on above: Performed By: #### C BC #### [facility] [address] [place] [address] Dr. Zari Butcher IG % 0.4 % Normal 0.0-0.5 [facility] Comment on above: Performed By: #### C BC #### [facility] [address] [place] [address] Dr. Zari Butcher LYMPH # 2.9 103/ul Normal 1.2-3.8 [facility] Comment on above: Performed By: #### C BC #### [facility] [address] [place] [address] Dr. Zari Butcher Lymphocytes/100 WBC (Bld) 21.6 % Normal 20.5-60.0 [facility] Comment on above: Performed By: #### C BC #### [facility] [address] [place] [address] Dr. Zari Butcher MANUAL DIFF REQ NO Normal [facility] Comment on above: Performed By: #### C BC #### [facility] [address] [place] [address] Dr. Zari Butcher MCH (RBC) [Entitic mass] 27.5 pg Normal 26.7-34.0 [facility] Comment on above: Performed By: #### C BC #### [facility] [address] [place] [address] Dr. Zari Butcher MCHC (RBC) [Mass/Vol] 31.9 g/dL Normal 29.9-35.2 [facility] Comment on above: Performed By: #### C BC #### [facility] [address] [place] [address] Dr. Zari Butcher MCV (RBC) [Entitic vol] 86.4 fL Normal 81.0-99.0 [facility] Comment on above: Performed By: #### C BC #### [facility] [address] [place] [address] Dr. Zari Butcher MONO # 0.7 103/ul Normal 0.3-0.8 [facility] Comment on above: Performed By: #### C BC #### [facility] [address] [place] [address] Dr. Zari Butcher Monocytes/100 WBC (Bld) 5.5 % Normal 1.7-12.0 [facility] Comment on above: Performed By: #### C BC #### [facility] [address] [place] [address] Dr. Zari Butcher NEUT # 9.4 103/ul Critically high 1.4-6.5 [facility] Comment on above: Performed By: #### C BC #### [facility] [address] [place] [address] Dr. Zari Butcher Neutrophils/100 WBC (Bld) 70.7 % Normal 43.0-75.0 [facility] Comment on above: Performed By: #### C BC #### [facility] [address] [place] [address] Dr. Zari Butcher Platelet mean volume (Bld) [Entitic vol] 10.8 fL Normal 9.5-13.5 [facility] Comment on above: Performed By: #### C BC #### [facility] [address] [place] [address] Dr. Zari Butcher PLT 203 103/ul Normal 150-450 [facility] Comment on above: Performed By: #### C BC #### [facility] [address] [place] [address] Dr. Zari Butcher RBC 3.16 106/ul Critically low 4.20-5.40 [facility] Comment on above: Performed By: #### C BC #### [facility] [address] [place] [address] Dr. Zari Butcher WBC 13.3 103/ul Critically high 4.0-11.0 [facility] Comment on above: Performed By: #### C BC #### [facility] [address] [place] [address] Dr. Zari Butcher CBC AUTO DIFFon 09-18-2022 BASO # 0.1 103/ul Normal 0.0-0.1 [facility] Comment on above: Performed By: #### C BC #### [facility] [address] [place] [address] Dr. Zari Butcher Basophils/100 WBC (Bld) 0.4 % Normal 0.2-2.0 [facility] Comment on above: Performed By: #### C BC #### [facility] [address] [place] [address] Dr. Zari Butcher EO # 0.2 103/ul Normal 0.0-0.7 [facility] Comment on above: Performed By: #### C BC #### [facility] [address] [place] [address] Dr. Zari Butcher Eosinophils/100 WBC (Bld) 1.3 % Normal 0.9-7.0 [facility] Comment on above: Performed By: #### C BC #### [facility] [address] [place] [address] Dr. Zari Butcher Erythrocyte distribution width (RBC) [Ratio] 14.6 % Normal 11.0-15.0 [facility] Comment on above: Performed By: #### C BC #### [facility] [address] [place] [address] Dr. Zari Butcher Hematocrit (Bld) [Volume fraction] 37.8 % Normal 36.0-48.0 [facility] Comment on above: Performed By: #### C BC #### [facility] [address] [place] [address] Dr. Zari Butcher Hemoglobin (Bld) [Mass/Vol] 12.4 g/dL Normal 12.0-16.0 [facility] Comment on above: Performed By: #### C BC #### [facility] [address] [place] [address] Dr. Zari Butcher IG # 0.04 10e3/ul Critically high 0.00-0.03 [facility] Comment on above: Performed By: #### C BC #### [facility] [address] [place] [address] Dr. Zari Butcher IG % 0.3 % Normal 0.0-0.5 [facility] Comment on above: Performed By: #### C BC #### [facility] [address] [place] [address] Dr. Zari Butcher LYMPH # 3.2 103/ul Normal 1.2-3.8 [facility] Comment on above: Performed By: #### C BC #### [facility] [address] [place] [address] Dr. Zari Butcher Lymphocytes/100 WBC (Bld) 24.6 % Normal 20.5-60.0 [facility] Comment on above: Performed By: #### C BC #### [facility] [address] [place] [address] Dr. Zari Butcher MANUAL DIFF REQ NO Normal [facility] Comment on above: Performed By: #### C BC #### [facility] [address] [place] [address] Dr. Zari Butcher MCH (RBC) [Entitic mass] 27.8 pg Normal 26.7-34.0 [facility] Comment on above: Performed By: #### C BC #### [facility] [address] [place] [address] Dr. Zari Butcher MCHC (RBC) [Mass/Vol] 32.8 g/dL Normal 29.9-35.2 [facility] Comment on above: Performed By: #### C BC #### [facility] [address] [place] [address] Dr. Zari Butcher MCV (RBC) [Entitic vol] 84.8 fL Normal 81.0-99.0 [facility] Comment on above: Performed By: #### C BC #### [facility] [address] [place] [address] Dr. Zari Butcher MONO # 0.8 103/ul Normal 0.3-0.8 [facility] Comment on above: Performed By: #### C BC #### [facility] [address] [place] [address] Dr. Zari Butcher Monocytes/100 WBC (Bld) 6.3 % Normal 1.7-12.0 [facility] Comment on above: Performed By: #### C BC #### [facility] [address] [place] [address] Dr. Zari Butcher NEUT # 8.7 103/ul Critically high 1.4-6.5 [facility] Comment on above: Performed By: #### C BC #### [facility] [address] [place] [address] Dr. Zari Butcher Neutrophils/100 WBC (Bld) 67.1 % Normal 43.0-75.0 [facility] Comment on above: Performed By: #### C BC #### [facility] [address] [place] [address] Dr. Zari Butcher Platelet mean volume (Bld) [Entitic vol] 10.9 fL Normal 9.5-13.5 [facility] Comment on above: Performed By: #### C BC #### [facility] [address] [place] [address] Dr. Zari Butcher PLT 280 103/ul Normal 150-450 [facility] Comment on above: Performed By: #### C BC #### [facility] [address] [place] [address] Dr. Zari Butcher RBC 4.46 106/ul Normal 4.20-5.40 [facility] Comment on above: Performed By: #### C BC #### [facility] [address] [place] [address] Dr. Zari Butcher WBC 13.0 103/ul Critically high 4.0-11.0 [facility] Comment on above: Performed By: #### C BC #### [facility] [address] [place] [address] Dr. Zari Butcher CULTURE URINEon 09-18-2022 CULTURE URINE Culture Observations : NO GROWTH. Normal [facility] Comment on above: Performed By: #### U RCX #### [facility] [address] [place] [address] Dr. Zari Butcher DRUG SCREEN RAPID (URINE)on 09-18-2022 AMP Negative Normal NEGATIVE [facility] Comment on above: Performed By: #### R UBIGG #### [facility] [address] [place] [address] Dr. Zari Butcher BAR Negative Normal NEGATIVE [facility] Comment on above: Performed By: #### R UBIGG #### [facility] [address] [place] [address] Dr. Zari Butcher BUP Negative Normal NEGATIVE [facility] Comment on above: Performed By: #### R UBIGG #### [facility] [address] [place] [address] Dr. Zari Butcher BZO Negative Normal NEGATIVE [facility] Comment on above: Performed By: #### R UBIGG #### [facility] [address] [place] [address] Dr. Zari Butcher AILYN Negative Normal NEGATIVE [facility] Comment on above: Performed By: #### R UBIGG #### [facility] [address] [place] [address] Dr. Zari Butcher CUT-OFFS SEE BELOW Normal [facility] Comment on above: Result Comment: AMP (Amphetamine): 500ng/mL, BAR (Barbituates): 200 ng/mL, BZO (Benzodiazepines): 150 ng/mL, BUP (Buprenorphine): 10 ng/mL, AILYN (Cocaine): 150 ng/mL, mAMP (Methamphetamine): 500 ng/mL, MTD (Methadone): 200 ng/mL, OPI (Opiates): 100 ng/mL, OXY (Oxycodone): 100 ng/mL, PCP (Phencyclidine): 25 ng/mL, PPX (Propoxyphene): 300 ng/mL, THC (Cannabinoids): 50 ng/mL, TCA (Trycyclic Antidepressants): 300 ng/mL Performed By: #### R UBIGG #### [facility] [address] [place] [address] Dr. Zari Butcher DRUG CUT HEADER DRUG CLASS TEST SYSTEM CUT-OFF CONCENTRATIONS ARE FOLLOWS: Normal [facility] Comment on above: Performed By: #### R UBIGG #### [facility] [address] [place] [address] Dr. Zari Butcher mAMP Negative Normal NEGATIVE [facility] Comment on above: Performed By: #### R UBIGG #### [facility] [address] [place] [address] Dr. Zari Butcher MTD Negative Normal NEGATIVE [facility] Comment on above: Performed By: #### R UBIGG #### [facility] [address] [address] [address] Zari Butcher OPI Negative Normal NEGATIVE [facility] Comment on above: Performed By: #### R UBIGG #### [facility] [address] [address] [address] Zari Butcher OXY Negative Normal NEGATIVE [facility] Comment on above: Performed By: #### R UBIGG #### [facility] [address] [address] [address] Zari Butcher PCP Negative Normal NEGATIVE [facility] Comment on above: Performed By: #### R UBIGG #### [facility] [address] [address] [address] Zari Butcher PPX Negative Normal NEGATIVE [facility] Comment on above: Performed By: #### R UBIGG #### [facility] [address] [address] [address] Zari Butcher TCA Negative Normal NEGATIVE [facility] Comment on above: Performed By: #### R UBIGG #### [facility] [address] [address] [address] Zari Butcher THC Negative Normal NEGATIVE [facility] Comment on above: Performed By: #### R UBIGG #### [facility] [address] [place] [address] Dr. Zari Butcher TYPE AND SCREENon 09-18-2022 TYPE AND SCREEN Negative Normal [facility] Comment on above: Performed By: #### T NS ####[facility] [address] [address]. Zari Butcher UA (CLEAN/CATCH) DEVELOPMENT TRAINER/MICRO I F IND.on 09-18-2022 Bilirubin Ql (U) Negative Normal NEGATIVE [facility] Comment on above: Performed By: #### C VDTBH #### [facility] [address] [place] [address] Dr. Zari Butcher Clarity (U) CLEAR Normal CLEAR [facility] Comment on above: Performed By: #### C VDTBH #### [facility] [address] [place] [address] Dr. Zari Butcher Color (U) LT. YELLOW Normal YELLOW [facility] Comment on above: Performed By: #### C VDTBH #### [facility] [address] [place] [address] Dr. Zari Butcher Glucose Ql (U) Negative Normal NEGATIVE [facility] Comment on above: Performed By: #### C VDTBH #### [facility] [address] [place] [address] Dr. Zari Butcher Hemoglobin Ql (U) Negative Normal NEGATIVE [facility] Comment on above: Performed By: #### C VDTBH #### [facility] [address] [place] [address] Dr. Zari Butcher Ketones Ql (U) TRACE Abnormal NEGATIVE [facility] Comment on above: Performed By: #### C VDTBH #### [facility] [address] [place] [address] Dr. Zari Butcher LEUKOCYTES MODERATE Abnormal NEGATIVE [facility] Comment on above: Performed By: #### C VDTBH #### [facility] [address] [place] [address] Dr. Zari Butcher Nitrite Ql (U) Negative Normal NEGATIVE [facility] Comment on above: Performed By: #### C VDTBH #### [facility] [address] [place] [address] Dr. Zari Butcher pH (U) 6.5 [pH] Normal 5-9 [facility] Comment on above: Performed By: #### C VDTBH #### [facility] [address] [place] [address] Dr. Zari Butcher SPEC GRAVITY 1.025 Normal 1.005-<=1.02 5 [facility] Comment on above: Performed By: #### C VDTBH #### [facility] [address] [place] [address] Dr. Zari Butcher UA PROTEIN Negative Normal NEGATIVE/ TRACE [facility] Comment on above: Performed By: #### C VDTBH #### [facility] [address] [place] [address] Dr. Zari Butcher UR MICRO IND INDICATED Normal [facility] Comment on above: Performed By: #### C VDTBH #### [facility] [address] [place] [address] Dr. Zari Butcher Urobilinogen Qn (U) 1.0 {Ashvin'U}/dL Normal 0.2 - 1. 0 [facility] Comment on above: Performed By: #### C VDTBH #### [facility] [address] [place] [address] Dr. Zari Butcher URINE MICROSCOPIC ONLYon BACTERIA LARGE Abnormal NONE SEEN [facility] Comment on above: Performed By: #### C VDTBH #### [facility] [address] [place] [address] Dr. Zari Butcher Bacteria identified Cx Nom (U) INDICATED Normal [facility] Comment on above: Performed By: #### C VDTBH #### [facility] [address] [place] [address] Dr. Zari Butcher CAST NONE SEEN Normal NONE SEEN [facility] Comment on above: Performed By: #### C VDTBH #### [facility] [address] [place] [address] Dr. Zari Butcher Crystals LM Nom (Urine sed) NONE SEEN Normal NONE SEEN [facility] Comment on above: Performed By: #### C VDTBH #### [facility] [address] [place] [address] Dr. Zari Butcher Epithelial cells LM Ql (Urine sed) MANY Abnormal NONE SEEN /RARE [facility] Comment on above: Performed By: #### C VDTBH #### [facility] [address] [place] [address] Dr. Zari Butcher MUCOUS SMALL Abnormal NONE SEEN [facility] Comment on above: Performed By: #### C VDTBH #### [facility] [address] [place] [address] Dr. Zari Butcher RBC 2-5 Abnormal 0-2 [facility] Comment on above: Performed By: #### C VDTBH #### [facility] [address] [place] [address] Dr. Zari Butcher WBC 10-20 Abnormal NONE SEEN [facility] Comment on above: Performed By: #### C VDTBH #### [facility] [address] [place] [address] Dr. Zari Butcher Covid-19 PCR ([facility])on SARS-CoV-2 (COVID-19) RNA HILDA+probe Ql (Unsp spec) Not detected Normal NOT DETECTED [facility] Comment on above: Result Comment: When diagnostic [...] for this test is supported by the Professor Of [employer] Service's declaration that [...] used). Performed By: #### C VDTBH #### [facility] [address] [place] [address] Dr. Zari Butcher VAGINITIS/VAGINOSIS DNA PROB Jacques 08-31-2022 Nilda species Negative Normal Negative [facility] Comment on above: Performed By: #### C BC #### [facility] [address] [place] [address] Dr. Zari Butcher Gardnerella vaginalis Positive Abnormal Negative [facility] Comment on above: Performed By: #### C BC #### [facility] [address] [place] [address] Dr. Zari Butcher Trichomonas vaginalis Negative Normal Negative [facility] Comment on above: Performed By: #### C BC #### [facility] [address] [address] [address] Zari Butcher GROUP B STREP CULTUREon 08-09 S. agalactiae Ag Ql (Unsp spec) Culture Observations: NEGATIVE FOR GROUP B STREPTOCOCCUS. Normal [facility] Comment on above: Performed By: #### G BSCX #### [facility] [address] [address] [address] Zari Butcher AMYLASEon 08-21-2022 Amylase [Catalytic activity/Vol] 47 U/L Normal 25-115 [facility] Comment on above: Performed By: #### C MP, RUSTY, LIPA ####[facility] [address] [address]DrFrancesca Butcher CBC AUTO DIFFon 08-21-2022 BASO # 0.0 103/ul Normal 0.0-0.1 [facility] Comment on above: Performed By: #### C BC ####[facility] [address] [place], [place] [address]DrFrancesca Butcher Basophils/100 WBC (Bld) 0.2 % Normal 0.2-2.0 [facility] Comment on above: Performed By: #### C BC ####[facility] [address] [place], [place] [address]DrFrancesca Butcher EO # 0.2 103/ul Normal 0.0-0.7 [facility] Comment on above: Performed By: #### C BC ####[facility] [address] [place], [place] [address]DrFrancesca Butcher Eosinophils/100 WBC (Bld) 1.5 % Normal 0.9-7.0 [facility] Comment on above: Performed By: #### C BC ####[facility] [address] [place], [place] [address]DrFrancesca Butcher Erythrocyte distribution width (RBC) [Ratio] 14.2 % Normal 11.0-15.0 [facility] Comment on above: Performed By: #### C BC ####[facility] [address] [address]DrFrancesca Butcher Hematocrit (Bld) [Volume fraction] 35.6 % Critically low 36.0-48.0 [facility] Comment on above: Performed By: #### C BC ####[facility] [address] [address]DrFrancesca Butcher Hemoglobin (Bld) [Mass/Vol] 11.3 g/dL Critically low 12.0-16.0 [facility] Comment on above: Performed By: #### C BC ####[facility] [address] [address]DrFrancesca Butcher IG # 0.04 10e3/ul Critically high 0.00-0.03 [facility] Comment on above: Performed By: #### C BC ####[facility] [address] [address]DrFrancesca Butcher IG % 0.3 % Normal 0.0-0.5 [facility] Comment on above: Performed By: #### C BC ####[facility] [address] [place], [place] [address]DrFrancesca Butcher LYMPH # 1.7 103/ul Normal 1.2-3.8 [facility] Comment on above: Performed By: #### C BC ####[facility] [address] [place], [place] [address]DrFrancesca Butcher Lymphocytes/100 WBC (Bld) 14.5 % Critically low 20.5-60.0 [facility] Comment on above: Performed By: #### C BC ####[facility] [address] [address]DrFrancesca Butcher MANUAL DIFF REQ NO Normal [facility] Comment on above: Performed By: #### C BC ####[facility] [address] [id number] Butcher MCH (RBC) [Entitic mass] 27.2 pg Normal 26.7-34.0 [facility] Comment on above: Performed By: #### C BC ####[facility] [address] [id number] Butcher MCHC (RBC) [Mass/Vol] 31.7 g/dL Normal 29.9-35.2 [facility] Comment on above: Performed By: #### C BC ####[facility] [address] [address]DrFrancesca Butcher MCV (RBC) [Entitic vol] 85.8 fL Normal 81.0-99.0 [facility] Comment on above: Performed By: #### C BC ####[facility] [address] [address]DrFrancesca Butcher MONO # 0.7 103/ul Normal 0.3-0.8 [facility] Comment on above: Performed By: #### C BC ####[facility] [address] [address]DrFrancesca Butcher Monocytes/100 WBC (Bld) 6.2 % Normal 1.7-12.0 [facility] Comment on above: Performed By: #### C BC ####[facility] [address] [place], [place] [address]DrFrancesca Butcher NEUT # 9.1 103/ul Critically high 1.4-6.5 [facility] Comment on above: Performed By: #### C BC ####[facility] [address] [place], [place] [address]DrFrancesca Butcher Neutrophils/100 WBC (Bld) 77.3 % Critically high 43.0-75.0 [facility] Comment on above: Performed By: #### C BC ####[facility] [address] [place], [place] [address]DrFrancesca Butcher Platelet mean volume (Bld) [Entitic vol] 11.1 fL Normal 9.5-13.5 [facility] Comment on above: Performed By: #### C BC ####[facility] [address] [place], [place] [id number] Butcher PLT 258 103/ul Normal 150-450 [facility] Comment on above: Performed By: #### C BC ####[facility] [address] [place], [place] [address]DrFrancesca Butcher RBC 4.15 106/ul Critically low 4.20-5.40 [facility] Comment on above: Performed By: #### C BC ####[facility] [address] [address]Dr. Zari Butcher WBC 11.8 103/ul Critically high 4.0-11.0 [facility] Comment on above: Performed By: #### C BC ####[facility] [address] [address]Dr. Zari Butcher BASO # 0.0 103/ul Normal 0.0-0.1 [facility] Comment on above: Performed By: #### C VDTBH #### [facility] [address] [place] [address] Dr. Zari Butcher Basophils/100 WBC (Bld) 0.2 % Normal 0.2-2.0 [facility] Comment on above: Performed By: #### C VDTBH #### [facility] [address] [place] [address] Dr. Zari Butcher EO # 0.3 103/ul Normal 0.0-0.7 [facility] Comment on above: Performed By: #### C VDTBH #### [facility] [address] [place] [address] Dr. Zari Butcher Eosinophils/100 WBC (Bld) 1.4 % Normal 0.9-7.0 [facility] Comment on above: Performed By: #### C VDTBH #### [facility] [address] [place] [address] Dr. Zari Butcher Erythrocyte distribution width (RBC) [Ratio] 14.1 % Normal 11.0-15.0 [facility] Comment on above: Performed By: #### C VDTBH #### [facility] [address] [place] [address] Dr. Zari Butcher Hematocrit (Bld) [Volume fraction] 38.2 % Normal 36.0-48.0 [facility] Comment on above: Performed By: #### C VDTBH #### [facility] [address] [place] [address] Dr. Zari Butcher Hemoglobin (Bld) [Mass/Vol] 12.6 g/dL Normal 12.0-16.0 [facility] Comment on above: Performed By: #### C VDTBH #### [facility] [address] [place] [address] Dr. Zari Butcher IG # 0.08 10e3/ul Critically high 0.00-0.03 [facility] Comment on above: Performed By: #### C VDTBH #### [facility] [address] [place] [address] Dr. Zari Butcher IG % 0.5 % Normal 0.0-0.5 [facility] Comment on above: Performed By: #### C VDTBH #### [facility] [address] [place] [address] Dr. Zari Butcher LYMPH # 1.8 103/ul Normal 1.2-3.8 [facility] Comment on above: Performed By: #### C VDTBH #### [facility] [address] [place] [address] Dr. Zari Butcher Lymphocytes/100 WBC (Bld) 10.1 % Critically low 20.5-60.0 [facility] Comment on above: Performed By: #### C VDTBH #### [facility] [address] [place] [address] Dr. Zari Butcher MANUAL DIFF REQ NO Normal [facility] Comment on above: Performed By: #### C VDTBH #### [facility] [address] [place] [address] Dr. Zari Butcher MCH (RBC) [Entitic mass] 27.6 pg Normal 26.7-34.0 [facility] Comment on above: Performed By: #### C VDTBH #### [facility] [address] [place] [address] Dr. Zari Butcher MCHC (RBC) [Mass/Vol] 33.0 g/dL Normal 29.9-35.2 [facility] Comment on above: Performed By: #### C VDTBH #### [facility] [address] [place] [address] Dr. Zari Butcher MCV (RBC) [Entitic vol] 83.6 fL Normal 81.0-99.0 [facility] Comment on above: Performed By: #### C VDTBH #### [facility] [address] [place] [address] Dr. Zari Butcher MONO # 1.1 103/ul Critically high 0.3-0.8 [facility] Comment on above: Performed By: #### C VDTBH #### [facility] [address] [place] [address] Dr. Zari Butcher Monocytes/100 WBC (Bld) 6.1 % Normal 1.7-12.0 [facility] Comment on above: Performed By: #### C VDTBH #### [facility] [address] [place] [address] Dr. Zari Butcher NEUT # 14.4 103/ul Critically high 1.4-6.5 [facility] Comment on above: Performed By: #### C VDTBH #### [facility] [address] [place] [address] Dr. Zari Butcher Neutrophils/100 WBC (Bld) 81.7 % Critically high 43.0-75.0 [facility] Comment on above: Performed By: #### C VDTBH #### [facility] [address] [place] [address] Dr. Zari Butcher Platelet mean volume (Bld) [Entitic vol] 10.8 fL Normal 9.5-13.5 [facility] Comment on above: Performed By: #### C VDTBH #### [facility] [address] [place] [address] Dr. Zari Butcher PLT 288 103/ul Normal 150-450 [facility] Comment on above: Performed By: #### C VDTBH #### [facility] [address] [place] [address] Dr. Zari Butcher RBC 4.57 106/ul Normal 4.20-5.40 [facility] Comment on above: Performed By: #### C VDTBH #### [facility] [address] [address] [address] Zari Butcher WBC 17.6 103/ul Critically high 4.0-11.0 [facility] Comment on above: Performed By: #### C VDTBH #### [facility] [address] [address] [address] Zari Butcher CULTURE URINEon 08-21-2022 CULTURE URINE Culture Observations : NO GROWTH. Normal [facility] Comment on above: Performed By: #### U RCX #### [facility] [address] [address] [address] Zari Butcher LIPASEon 08-21-2022 Lipase [Catalytic activity/Vol] 86.0 U/L Normal 73.0-393.0 [facility] Comment on above: Performed By: #### C RUSTY VERGARA, LIPA ####[facility] [address] [address]. Zari Butcher PROF 14(COMP METB)on 022 Albumin [Mass/Vol] 2.3 g/dL Critically low 3.4-5.0 [facility] Comment on above: Performed By: #### C BC #### [facility] [address] [place] [address] Dr. Zari Butcher Albumin/Globulin [Mass ratio] 0.5 {ratio} Normal [facility] Comment on above: Performed By: #### C BC #### [facility] [address] [place] [address] Dr. Zari Butcher ALP [Catalytic activity/Vol] 160 U/L Critically high 46-116 [facility] Comment on above: Performed By: #### C BC #### [facility] [address] [address] [address] Zari Butcher ALT [Catalytic activity/Vol] 28 U/L Normal 14-59 [facility] Comment on above: Performed By: #### C BC #### [facility] [address] [place] [address] Dr. Zari Butcher Anion gap [Moles/Vol] 11.8 mmol/L Normal [facility] Comment on above: Performed By: #### C BC #### [facility] [address] [address] [address] Zari Butcher AST [Catalytic activity/Vol] 53 U/L Critically high 15-37 [facility] Comment on above: Performed By: #### C BC #### [facility] [address] [address] [address] Zari Butcher Bilirubin [Mass/Vol] 0.6 mg/dL Normal 0.2-1.0 [facility] Comment on above: Performed By: #### C BC #### [facility] [address] [address] [address] Zari Butcher Calcium [Mass/Vol] 8.9 mg/dL Normal 8.5-10.1 [facility] Comment on above: Performed By: #### C BC #### [facility] [address] [address] [address] Zari Butcher Chloride [Moles/Vol] 103 mmol/L Normal 98-107 [facility] Comment on above: Performed By: #### C BC #### [facility] [address] [address] [address] Zari Butcher CO2 [Moles/Vol] 23.7 mmol/L Normal 21.0-32.0 [facility] Comment on above: Performed By: #### C BC #### [facility] [address] [place] [address] Dr. Zari Butcher Creatinine [Mass/Vol] 0.48 mg/dL Critically low 0.55-1.02 [facility] Comment on above: Performed By: #### C BC #### [facility] [address] [address] [address] Zari Butcher EGFR-AF BURKINAN >60 Normal >=60 [facility] Comment on above: Performed By: #### C BC #### [facility] [address] [address] [address] Zari Butcher EGFR-NON AF BURKINAN >60 Normal >=60 [facility] Comment on above: Performed By: #### C BC #### [facility] [address] [address] [address] Zari Butcher Globulin (S) [Mass/Vol] 4.9 g/dL Normal [facility] Comment on above: Performed By: #### C BC #### [facility] [address] [place] [address] Dr. Zari Butcher Glucose [Mass/Vol] 101 mg/dL Normal 74-106 [facility] Comment on above: Performed By: #### C BC #### [facility] [address] [place] [address] Dr. Zari Butcher Potassium [Moles/Vol] 3.5 mmol/L Normal 3.5-5.1 [facility] Comment on above: Performed By: #### C BC #### [facility] [address] [place] [address] Dr. Zari Butcher Protein [Mass/Vol] 7.2 g/dL Normal 6.4-8.2 [facility] Comment on above: Performed By: #### C BC #### [facility] [address] [place] [address] Dr. Zari Butcher Sodium [Moles/Vol] 135 mmol/L Critically low 136-145 [facility] Comment on above: Performed By: #### C BC #### [facility] [address] [place] [address] Dr. Zari Butcher Urea nitrogen [Mass/Vol] 7.0 mg/dL Normal 7.0-18.0 [facility] Comment on above: Performed By: #### C BC #### [facility] [address] [place] [address] Dr. Zari Butcher Urea nitrogen/Creatinine [Mass ratio] 14.6 mg/mg Normal [facility] Comment on above: Performed By: #### C BC #### [facility] [address] [place] [address] Dr. Zari Butcher SGOTon 08-21-2022 AST [Catalytic activity/Vol] 59 U/L Critically high 15-37 [facility] Comment on above: Performed By: #### C VDTB #### [facility] [address] [place] [address] Dr. Zari Butcher SGPTon 08-21-2022 ALT [Catalytic activity/Vol] 41 U/L Normal 14-59 [facility] Comment on above: Performed By: #### C VDTBH #### [facility] [address] [place] [address] Dr. Zari Butcher UA (CLEAN/CATCH) DEVELOPMENT TRAINER/MICRO I F IND.on 08-21-2022 Bilirubin Ql (U) Negative Normal NEGATIVE [facility] Comment on above: Performed By: #### R UBIGG #### [facility] [address] [place] [address] Dr. Zari Butcher Clarity (U) CLEAR Normal CLEAR [facility] Comment on above: Performed By: #### R UBIGG #### [facility] [address] [place] [address] Dr. Zari Butcher Color (U) LT. YELLOW Normal YELLOW [facility] Comment on above: Performed By: #### R UBIGG #### [facility] [address] [place] [address] Dr. Zari Butcher Glucose Ql (U) Negative Normal NEGATIVE [facility] Comment on above: Performed By: #### R UBIGG #### [facility] [address] [place] [address] Dr. Zari Butcher Hemoglobin Ql (U) Negative Normal NEGATIVE [facility] Comment on above: Performed By: #### R UBIGG #### [facility] [address] [place] [address] Dr. Zari Butcher Ketones Ql (U) Negative Normal NEGATIVE [facility] Comment on above: Performed By: #### R UBIGG #### [facility] [address] [place] [address] Dr. Zari Butcher LEUKOCYTES SMALL Abnormal NEGATIVE [facility] Comment on above: Performed By: #### R UBIGG #### [facility] [address] [place] [address] Dr. Zari Butcher Nitrite Ql (U) Negative Normal NEGATIVE [facility] Comment on above: Performed By: #### R UBIGG #### [facility] [address] [place] [address] Dr. Zari Butcher pH (U) 7.5 [pH] Normal 5-9 [facility] Comment on above: Performed By: #### R UBIGG #### [facility] [address] [place] [address] Dr. Zari Butcher SPEC GRAVITY 1.015 Normal 1.005-<=1.02 5 [facility] Comment on above: Performed By: #### R UBIGG #### [facility] [address] [place] [address] Dr. Zari Butcher UA PROTEIN Negative Normal NEGATIVE/ TRACE [facility] Comment on above: Performed By: #### R UBIGG #### [facility] [address] [place] [address] Dr. Zari Butcher UR MICRO IND INDICATED Normal [facility] Comment on above: Performed By: #### R UBIGG #### [facility] [address] [place] [address] Dr. Zari Butcher Urobilinogen Qn (U) 4 {Ashvin'U}/dL Abnormal 0.2 - 1.0 [facility] Comment on above: Performed By: #### R UBIGG #### [facility] [address] [place] [address] Dr. Zari Butcher URINE MICROSCOPIC ONLYon BACTERIA SMALL Abnormal NONE SEEN [facility] Comment on above: Performed By: #### R UBIGG #### [facility] [address] [place] [address] Dr. Zari Butcher Bacteria identified Cx Nom (U) INDICATED Normal [facility] Comment on above: Performed By: #### R UBIGG #### [facility] [address] [place] [address] Dr. Zari Butcher CAST NONE SEEN Normal NONE SEEN [facility] Comment on above: Performed By: #### R UBIGG #### [facility] [address] [place] [address] Dr. Zari Butcher Crystals LM Nom (Urine sed) NONE SEEN Normal NONE SEEN [facility] Comment on above: Performed By: #### R UBIGG #### [facility] [address] [place] [address] Dr. Zari Butcher Epithelial cells LM Ql (Urine sed) MANY Abnormal NONE SEEN /RARE [facility] Comment on above: Performed By: #### R UBIGG #### [facility] [address] [place] [address] Dr. Zari Butcher MUCOUS NONE SEEN Normal NONE SEEN [facility] Comment on above: Performed By: #### R UBIGG #### [facility] [address] [place] [address] Dr. Zari Butcher RBC 2-5 Abnormal 0-2 [facility] Comment on above: Performed By: #### R UBIGG #### [facility] [address] [place] [address] Dr. Zari Butcher WBC 5-10 Abnormal NONE SEEN [facility] Comment on above: Performed By: #### R UBIGG #### [facility] [address] [place] [address] Dr. Zari Butcher US PREG BIOPHY W [...] KIRSTEN MATA Date: 2022-08-21 16:40 Normal [facility] US PREG PLACENTAon US PREG PLACENTA EXAMINATION: US PREG PLACENTA HISTORY: pain COMPARISON: No relevant comparison available. FINDINGS: position: Cephalic presentation, longitudinal lie Amniotic fluid volume: 12.7 cm. Largest pocket 6.3 cm Placenta: Anterior. Grade 1. No intraplacental or retroplacental echogenic abnormality Heart rate: 1 40 bpm IMPRESSION: Normal appearance of the placenta Electronically authenticated by: KIRSTEN MATA Date: 2022-08-21 11:42 Normal [facility] US PREG INCOMPLETE ANATOMYon 08-08-2022 US PREG [...] by: ALEE MARTELL Date: 2022-08-08 05:57 Normal [facility] PREG INCOMPLETE ANATOMYon 07-06-2022 US PREG INCOMPLETE [...] by: ALEE MARTELL Date: 2022-07-06 16:19 Normal [facility] US PREG INCOMPLETE ANATOMYon 06-14-2022 US PREG [...] by: ALEE MARTELL Date: 2022-06-14 16:20 Normal [facility] GLUCOSE - 1HRon 06-10-2022 Glucose [Mass/Vol] 137 mg/dL Critically high 74-106 [facility] Comment on above: Performed By: #### R UBIGG #### [facility] [address] [place] [address] Dr. Zari Butcher HEMOGRAM AND PLATELon 2021 Hematocrit (Bld) [Volume fraction] 38.4 % Normal 36.0-48.0 [facility] Comment on above: Performed By: #### R UBIGG #### [facility] [address] [address] [address] Zari Butcher Hemoglobin (Bld) [Mass/Vol] 12.4 g/dL Normal 12.0-16.0 [facility] Comment on above: Performed By: #### R UBIGG #### [facility] [address] [address] [address] Zari Butcher MCH (RBC) [Entitic mass] 27.7 pg Normal 26.7-34.0 [facility] Comment on above: Performed By: #### R UBIGG #### [facility] [address] [address] [address] Zari Butcher MCHC (RBC) [Mass/Vol] 32.3 g/dL Normal 29.9-35.2 [facility] Comment on above: Performed By: #### R UBIGG #### [facility] [address] [address] [address] Zari Butcher MCV (RBC) [Entitic vol] 85.7 fL Normal 81.0-99.0 [facility] Comment on above: Performed By: #### R UBIGG #### [facility] [address] [place], [place] [address] Dr. Zari Butcher PLT 274 103/ul Normal 150-450 [facility] Comment on above: Performed By: #### R UBIGG #### [facility] [address] [place], [place] [address] Dr. Zari Butcher RBC 4.48 106/ul Normal 4.20-5.40 [facility] Comment on above: Performed By: #### R UBIGG #### [facility] [address] [place], [place] [address] Dr. Zari Butcher WBC 10.5 103/ul Normal 4.0-11.0 [facility] Comment on above: Performed By: #### R UBIGG #### [facility] [id number] Zari Butcher US PREG ANATOMY SINGLEon [...] by: KIRSTEN MATA Date: 2022-05-16 18:25 Normal [facility] CHEMISTRYOrdered By: SYSTEM SYSTEM on 05-06-2022 Albumin [...] 13 mmol/L Normal 6 - 16 mEq/L [facility] Remisol AST [Catalytic activity/Vol] 12 [iU]/d Normal [...] MDRD (S/P/Bld) [Vol rate/Area] mL/min/1.73 m2 Normal >=59mL/min/1 .73 m2 [facility] Chem S GFR/1.73 sq M.predicted among non-blacks MDRD (S/P/Bld) [Vol rate/Area] mL/min/1.73 m2 Normal >=59mL/min/1 .73 m2 [facility] Chem S Globulin (S) [Mass/Vol] 3.9 g/dL Normal 1.4 - 4.0 gm/dL [facility] Remisol Glucose [Mass/Vol] 88 mg/dL Normal 55 - 199 mg/dL [facility] Remisol Lipase [Catalytic activity/Vol] 26 U/L Normal 13 - 58 unit/L [facility] Potassium [Moles/Vol] 3.7 mmol/L Normal 3.5 - 5.3 mmol/L [facility] Protein [Mass/Vol] 6.9 g/dL Normal 6.0 - 7.8 gm/dL [facility] Sodium [Moles/Vol] 136 mmol/L Normal 135 - 145 mmol/L [facility] Urea nitrogen [Mass/Vol] 8 mg/dL Normal 5 - 21 mg/dL [facility] Urea nitrogen/Creatinine [Mass ratio] 20 mg/mg Normal 10 - 20 [facility]isol HEMATOLOGYOrdered By: SYSTEM SYSTEM on 05-06-2022 [...] - 7.5 E9/L [facility] HemeAutoSS HEMATOLOGYOrdered By: Isis Jerez on 05-06-2022 Erythrocyte distribution width (RBC) [Ratio] [...] HemeAutoSS Platelets (Bld) [#/Vol] 267.0 E9/L Normal 150. 0 - 500.0 E9/L [facility] HemeAutoSS RBC (Bld) [...] Interpretation Code Negative [facility] UA Auto SS [place].plasma/[place]. RBC (Bld) [Mass ratio] 0-3 /HPF Normal 0-3/HPF [facility] UA A uto SS Mucus Ql (Urine sed) 1+ (05/06/22 1:39 AM) Normal [facility] UA Auto SS Nitrite Ql (U) Negative (05/06/22 1:39 AM) Normal Negative [facility] UA Auto SS pH (U) 6.0 *NA* (05/06/22 1:39 AM) Invalid Interpretation Code 5.0 - 9.0 [facility] UA Auto SS Protein (U) [Mass/Vol] Negative (05/06/22 1:39 AM) Normal Negative [facility] UA Auto SS Specific gravity (U) [Rel density] 1.025 *NA* (05/06/22 1:39 AM) Invalid Interpretation Code 1.005 - 1.030 [facility] UA Auto SS UA Spec Desc Clean Catch (05/06/22 1:39 AM) Normal [facility] Auto SS Urobilinogen Qn (U) [id number] {Ashvin'U}/dL Normal 0.0 - 1.0 EU/dL [facility] UA Auto SS WBC Auto Ql (U) 1+ *ABN* (05/06/22 1:39 AM) Invalid Interpretation Code Negative [facility] UA Auto SS WBC LM.HPF (Urine sed) [#/Area] 6-15 /HPF Invalid Interpretation Code 0-5/HPF [facility] UA Auto SS AMYLASEon 04-01-2022 Amylase [Catalytic activity/Vol] 36 U/L Normal 25-115 [facility] Comment on above: Performed By: #### C BC #### [facility] [address] [place], [place] [address] Dr. Zari Butcher CBC AUTO DIFFon 04-01-2022 BASO # 0.0 103/ul Normal 0.0-0.1 [facility] Comment on above: Performed By: #### C BC ####[facility] [address] [id number]. Zari Butcher Basophils/100 WBC (Bld) 0.2 % Normal 0.2-2.0 [facility] Comment on above: Performed By: #### C BC ####[facility] [address] [address]DrFrancesca Butcher EO # 0.1 103/ul Normal 0.0-0.7 [facility] Comment on above: Performed By: #### C BC ####[facility] [address] [address]DrFrancesca Butcher Eosinophils/100 WBC (Bld) 1.0 % Normal 0.9-7.0 [facility] Comment on above: Performed By: #### C BC ####[facility] [address] [address]DrFrancesca Butcher Erythrocyte distribution width (RBC) [Ratio] 13.5 % Normal 11.0-15.0 [facility] Comment on above: Performed By: #### C BC ####[facility] [address] [id number]. Zari Butcher Hematocrit (Bld) [Volume fraction] 41.9 % Normal 36.0-48.0 [facility] Comment on above: Performed By: #### C BC ####[facility] [address] [id number]. Zari Butcher Hemoglobin (Bld) [Mass/Vol] 13.7 g/dL Normal 12.0-16.0 [facility] Comment on above: Performed By: #### C BC ####[facility] [address] [id number] Butcher IG # 0.04 10e3/ul Critically high 0.00-0.03 [facility] Comment on above: Performed By: #### C BC ####[facility] [address] [id number]. Zari Butcher IG % 0.4 % Normal 0.0-0.5 [facility] Comment on above: Performed By: #### C BC ####[facility] [address] [address]Dr. Zari Butcher LYMPH # 1.3 103/ul Normal 1.2-3.8 [facility] Comment on above: Performed By: #### C BC ####[facility] [address] [id number]. Zari Butcher Lymphocytes/100 WBC (Bld) 12.8 % Critically low 20.5-60.0 [facility] Comment on above: Performed By: #### C BC ####[facility] [address] [address]Dr. Zari Butcher MANUAL DIFF REQ NO Normal [facility] Comment on above: Performed By: #### C BC ####[facility] [address] [id number]. Zari Butcher MCH (RBC) [Entitic mass] 27.7 pg Normal 26.7-34.0 [facility] Comment on above: Performed By: #### C BC ####[facility] [address] [id number]. Zari Butcher MCHC (RBC) [Mass/Vol] 32.7 g/dL Normal 29.9-35.2 [facility] Comment on above: Performed By: #### C BC ####[facility] [address] [id number]. Zari Butcher MCV (RBC) [Entitic vol] 84.6 fL Normal 81.0-99.0 [facility] Comment on above: Performed By: #### C BC ####[facility] [address] [id number]. Zari Hadley MONO # 0.4 103/ul Normal 0.3-0.8 [facility] Comment on above: Performed By: #### C BC ####[facility] [address] [phone]. Zari Butcher Monocytes/100 WBC (Bld) 4.3 % Normal 1.7-12.0 [facility] Comment on above: Performed By: #### C BC ####[facility] [address] [id number]. Zari Butcher NEUT # 8.1 103/ul Critically high 1.4-6.5 [facility] Comment on above: Performed By: #### C BC ####[facility] [address] [phone]. Zari Butcher Neutrophils/100 WBC (Bld) 81.3 % Critically high 43.0-75.0 [facility] Comment on above: Performed By: #### C BC ####[facility] [address] [phone]. Zari Butcher Platelet mean volume (Bld) [Entitic vol] 9.8 fL Normal 9.5-13.5 [facility] Comment on above: Performed By: #### C BC ####[facility] [address] [id number]. Zari Butcher PLT 278 103/ul Normal 150-450 [facility] Comment on above: Performed By: #### C BC ####[facility] [address] [phone]. Zari Butcher RBC 4.95 106/ul Normal 4.20-5.40 [facility] Comment on above: Performed By: #### C BC ####[facility] [address] [address]Dr. Zari Butcher WBC 9.9 103/ul Normal 4.0-11.0 [facility] Comment on above: Performed By: #### C BC ####[facility] [address] [phone]. Zari Butcher ER URINE PROFILEon 2 Bilirubin Ql (U) Negative Normal NEGATIVE [facility] Comment on above: Performed By: #### C VDTB #### [facility] [address] [place] [address] Dr. Zari Butcher Clarity (U) CLEAR Normal CLEAR [facility] Comment on above: Performed By: #### C VDTBH #### [facility] [address] [place] [address] Dr. Zari Butcher Color (U) YELLOW Normal YELLOW [facility] Comment on above: Performed By: #### C VDTBH #### [facility] [address] [place] [address] Dr. Zari DIAMOND A micrscopic examination will be performed if indicated. Normal [facility] Comment on above: Performed By: #### C VDTBH #### [facility] [address] [place] [address] Dr. Zari Butcher Glucose Ql (U) Negative Normal NEGATIVE [facility] Comment on above: Performed By: #### C VDTBH #### [facility] [address] [place] [address] Dr. Zari Butcher Hemoglobin Ql (U) Negative Normal NEGATIVE [facility] Comment on above: Performed By: #### C VDTBH #### [facility] [address] [place] [address] Dr. Zari Butcher Ketones Ql (U) Negative Normal NEGATIVE [facility] Comment on above: Performed By: #### C VDTBH #### [facility] [address] [place] [address] Dr. Zari Butcher LEUKOCYTES Negative Normal NEGATIVE [facility] Comment on above: Performed By: #### C VDTBH #### [facility] [address] [place] [address] Dr. Zari Butcher Nitrite Ql (U) Negative Normal NEGATIVE [facility] Comment on above: Performed By: #### C VDTBH #### [facility] [address] [place] [address] Dr. Zari Butcher pH (U) 5.5 [pH] Normal 5-9 [facility] Comment on above: Performed By: #### C VDTBH #### [facility] [address] [place] [address] Dr. Zari Butcher SPEC GRAVITY >=1.030 Abnormal 1.005-<=1.02 5 [facility] Comment on above: Performed By: #### C VDTBH #### [facility] [address] [place] [address] Dr. Zari Butcher UA PROTEIN Negative Normal NEGATIVE/ TRACE [facility] Comment on above: Performed By: #### C VDTBH #### [facility] [address] [place] [address] Dr. Zari Butcher UR MICRO IND NOT INDICATED Normal [facility] Comment on above: Performed By: #### C VDTBH #### [facility] [address] [place] [address] Dr. Zari Butcher Urobilinogen Qn (U) 2.0 {Ashvin'U}/dL Abnormal 0.2 - 1. 0 [facility] Comment on above: Performed By: #### C VDTBH #### [facility] [address] [place] [address] Dr. Zari Butcher LIPASEon 04-01-2022 Lipase [Catalytic activity/Vol] 56.0 U/L Critically low 73.0-393.0 [facility] Comment on above: Performed By: #### C BC #### [facility] [address] [place] [address] Dr. Zari Butcher PROF 14(COMP METB)on 022 Albumin [Mass/Vol] 2.8 g/dL Critically low 3.4-5.0 [facility] Comment on above: Performed By: #### C BC #### [facility] [address] [place] [address] Dr. Zari Butcher Albumin/Globulin [Mass ratio] 0.6 {ratio} Normal [facility] Comment on above: Performed By: #### C BC #### [facility] [address] [place] [address] Dr. Zari Butcher ALP [Catalytic activity/Vol] 74 U/L Normal 46-116 [facility] Comment on above: Performed By: #### C BC #### [facility] [address] [address] [address] Zari Butcher ALT [Catalytic activity/Vol] 40 U/L Normal 14-59 [facility] Comment on above: Performed By: #### C BC #### [facility] [address] [place] [address] Dr. Zari Butcher Anion gap [Moles/Vol] 11.5 mmol/L Normal [facility] Comment on above: Performed By: #### C BC #### [facility] [address] [address] [address] Zari Butcher AST [Catalytic activity/Vol] 18 U/L Normal 15-37 [facility] Comment on above: Performed By: #### C BC #### [facility] [address] [place] [address] Dr. Zari Butcher Bilirubin [Mass/Vol] 0.4 mg/dL Normal 0.2-1.0 [facility] Comment on above: Performed By: #### C BC #### [facility] [address] [place] [address] Dr. Zari Butcher Calcium [Mass/Vol] 8.6 mg/dL Normal 8.5-10.1 [facility] Comment on above: Performed By: #### C BC #### [facility] [address] [place] [address] Dr. Zari Butcher Chloride [Moles/Vol] 104 mmol/L Normal 98-107 [facility] Comment on above: Performed By: #### C BC #### [facility] [address] [place] [address] Dr. Zari Butcher CO2 [Moles/Vol] 25.2 mmol/L Normal 21.0-32.0 [facility] Comment on above: Performed By: #### C BC #### [facility] [address] [place] [address] Dr. Zari Butcher Creatinine [Mass/Vol] 0.48 mg/dL Critically low 0.55-1.02 [facility] Comment on above: Performed By: #### C BC #### [facility] [address] [place] [address] Dr. Zari Butcher EGFR-AF BURKINAN >60 Normal >=60 [facility] Comment on above: Performed By: #### C BC #### [facility] [address] [address] [address] Zari Butcher EGFR-NON AF BURKINAN >60 Normal >=60 [facility] Comment on above: Performed By: #### C BC #### [facility] [address] [address] [address] Zari Butcher Globulin (S) [Mass/Vol] 4.5 g/dL Normal T [facility] Comment on above: Performed By: #### C BC #### [facility] [address] [address] [address] Zari Butcher Glucose [Mass/Vol] 100 mg/dL Normal 74-106 [facility] Comment on above: Performed By: #### C BC #### [facility] [address] [address] [address] Zari Butcher Potassium [Moles/Vol] 3.7 mmol/L Normal 3.5-5.1 [facility] Comment on above: Performed By: #### C BC #### [facility] [address] [address] [address] Zari Butcher Protein [Mass/Vol] 7.3 g/dL Normal 6.4-8.2 [facility] Comment on above: Performed By: #### C BC #### [facility] [address] [address] [address] aZri Butcher Sodium [Moles/Vol] 137 mmol/L Normal 136-145 [facility] Comment on above: Performed By: #### C BC #### [facility] [address] [address] [address] Zari Butcher Urea nitrogen [Mass/Vol] 5.0 mg/dL Critically low 7.0-18.0 [facility] Comment on above: Performed By: #### C BC #### [facility] [address] [address] [address] Zari Butcher Urea nitrogen/Creatinine [Mass ratio] 10.4 mg/mg Normal [facility] Comment on above: Performed By: #### C BC #### [facility] [address] [address] [address] Zari Butcher HEP B SURFACE ANTIGEN SCREEN on 03-09-2022 HBsAg Screen Negative Normal Negative [facility] Comment on above: Performed By: #### R UBIGG #### [facility] [address] [address] [address] Zari Butcher HEPATITIS C VIRUS AB W/ REFL EX QUANTon 03-09-2022 HCV AB <0.1 Normal 0.0-0.9 [facility] Comment on above: Performed By: #### R UBIGG #### [facility] [address] [address] [address] Zari Butcher Interpretation: Comment Normal [facility] Comment on above: Result Comment: Nega tive Not infected with HCV, unless recent infection is suspected or other evidence exists to indicate HCV infection. Performed By: #### R UBIGG #### [facility] [address] [address] [address] Zari Butcher HIV 1 AND 2 WITH REFLEXon HIV Screen 4th Generation wRfx Non-Reactive Normal Non Reactive [facility] Comment on above: Result Comment: HIV Negative HIV-1/HIV-2 antibodies and HIV-1 p24 antigen were NOT detected. There is no laboratory evidence of HIV infection. Performed By: #### R UBIGG #### [facility] [address] [place] [address] Dr. Zari Butcher RPR QUANTon 03-09-2022 Rapid Plasma Reagin, Quant Non-Reactive Normal NonRea<1:1 [facility] Comment on above: Result Comment: Plea se Note: This test does not meet current guidelines for screening and diagnosis of syphilis. This test is intended for following treatment response in patients being treated for syphilis infection. To screen for syphilis infection, a reflex cascade that includes both RPR and a treponema-specific assay should be utilized, such as Treponema pallidum (Syphilis) Screening [place] (869248) or Rapid Plasma Reagin (RPR) Test With Reflex to Quantitative RPR and Confirmatory Treponema pallidum Antibodies (608484). Performed By: #### C BC #### [facility] [address] [place] [address] Dr. Zari Butcher RUBELLA AB IGGon 03-09-2022 Rubella Antibodies, IgG 1.48 index Normal Immune >0.99 [facility] Comment on above: Result Comment: Non- immune <0.90 Equivocal 0.90 - 0.99 Immune >0.99 Performed By: #### R UBIGG #### [facility] [address] [place] [address] Dr. Zari Butcher CBC AUTO DIFFon 03-08-2022 BASO # 0.0 103/ul Normal 0.0-0.1 [facility] Comment on above: Performed By: #### C BC #### [facility] [address] [place] [address] Dr. Zari Butcher Basophils/100 WBC (Bld) 0.3 % Normal 0.2-2.0 [facility] Comment on above: Performed By: #### C BC #### [facility] [address] [place] [address] Dr. Zari Butcher EO # 0.2 103/ul Normal 0.0-0.7 [facility] Comment on above: Performed By: #### C BC #### [facility] [address] [place] [address] Dr. Zari Butcher Eosinophils/100 WBC (Bld) 1.7 % Normal 0.9-7.0 [facility] Comment on above: Performed By: #### C BC #### [facility] [address] [place] [address] Dr. Zari Butcher Erythrocyte distribution width (RBC) [Ratio] 13.2 % Normal 11.0-15.0 [facility] Comment on above: Performed By: #### C BC #### [facility] [address] [place] [address] Dr. Zari Butcher Hematocrit (Bld) [Volume fraction] 42.0 % Normal 36.0-48.0 [facility] Comment on above: Performed By: #### C BC #### [facility] [address] [place] [address] Dr. Zari Butcher Hemoglobin (Bld) [Mass/Vol] 13.5 g/dL Normal 12.0-16.0 [facility] Comment on above: Performed By: #### C BC #### [facility] [address] [place] [address] Dr. Zari Butcher IG # 0.04 10e3/ul Critically high 0.00-0.03 [facility] Comment on above: Performed By: #### C BC #### [facility] [address] [place] [address] Dr. Zari Butcher IG % 0.4 % Normal 0.0-0.5 [facility] Comment on above: Performed By: #### C BC #### [facility] [address] [place] [address] Dr. Zari Butcher LYMPH # 2.5 103/ul Normal 1.2-3.8 [facility] Comment on above: Performed By: #### C BC #### [facility] [address] [place] [address] Dr. Zari Butcher Lymphocytes/100 WBC (Bld) 22.6 % Normal 20.5-60.0 [facility] Comment on above: Performed By: #### C BC #### [facility] [address] [place] [address] Dr. Zari Butcher MANUAL DIFF REQ NO Normal [facility] Comment on above: Performed By: #### C BC #### [facility] [address] [place] [address] Dr. Zari Butcher MCH (RBC) [Entitic mass] 27.2 pg Normal 26.7-34.0 [facility] Comment on above: Performed By: #### C BC #### [facility] [address] [place] [address] Dr. Zari Butcher MCHC (RBC) [Mass/Vol] 32.1 g/dL Normal 29.9-35.2 [facility] Comment on above: Performed By: #### C BC #### [facility] [address] [place] [address] Dr. Zari Butcher MCV (RBC) [Entitic vol] 84.5 fL Normal 81.0-99.0 [facility] Comment on above: Performed By: #### C BC #### [facility] [address] [place] [address] Dr. Zari Butcher MONO # 0.6 103/ul Normal 0.3-0.8 [facility] Comment on above: Performed By: #### C BC #### [facility] [address] [place] [address] Dr. Zari Butcher Monocytes/100 WBC (Bld) 5.1 % Normal 1.7-12.0 [facility] Comment on above: Performed By: #### C BC #### [facility] [address] [place] [address] Dr. Zari Butcher NEUT # 7.7 103/ul Critically high 1.4-6.5 [facility] Comment on above: Performed By: #### C BC #### [facility] [address] [place] [address] Dr. Zari uBtcher Neutrophils/100 WBC (Bld) 69.9 % Normal 43.0-75.0 [facility] Comment on above: Performed By: #### C BC #### [facility] [address] [place] [address] Dr. Zari Butcher Platelet mean volume (Bld) [Entitic vol] 10.1 fL Normal 9.5-13.5 [facility] Comment on above: Performed By: #### C BC #### [facility] [address] [place] [address] Dr. Zari Butcher PLT 312 103/ul Normal 150-450 [facility] Comment on above: Performed By: #### C BC #### [facility] [address] [place] [address] Dr. Zari Butcher RBC 4.97 106/ul Normal 4.20-5.40 [facility] Comment on above: Performed By: #### C BC #### [facility] [address] [place] [address] Dr. Zari Butcher WBC 11.0 103/ul Normal 4.0-11.0 [facility] Comment on above: Performed By: #### C BC #### [facility] [address] [address] [address] Zari Butcher CULTURE URINEon 03-08-2022 CULTURE URINE Culture Observations : LIGHT GROWTH OF MIXED GENITAL ALIVIA. NO POTENTIAL PATHOGENS SEEN. Normal [facility] Comment on above: Performed By: #### U RCX ####[facility] [address] [address]Dr. Zari Butcher GLYCOHEMOGLOBIN A1Con 2021 ADA RECOMMENDATION SEE BELOW Normal [facility] Comment on above: Result Comment: ADA RECOMMENDED LIMIT 4.0 - 6.0 ADA THERAPEUTIC TARGET < 7.0 ACTION SUGGESTED > 7.0 Performed By: #### R UBIGG #### [facility] [address] [address] [address] Zari Butcher Glucose [Mass/Vol] 114 mg/dL Normal [facility] Comment on above: Performed By: #### R UBIGG #### [facility] [address] [address] [address] Zari Butcher HbA1c (Bld) [Mass fraction] 5.6 % Normal 4.5-6.2 [facility] Comment on above: Performed By: #### R UBIGG #### [facility] [address] [address] [address] Zari Butcher TYPE AND SCREENon 03-08-2022 TYPE AND SCREEN Negative Normal [facility] Comment on above: Performed By: #### T NS #### [facility] [address] [address] [address] Zari Butcher US PREG TVon 02-17-2022 [...] by: KIRSTEN MATA Date: 2022-02-17 10:28 Normal [facility] PREG QUANT HCGon 01-25-2022 HCG QUANT 4078 mIU/mL Normal [facility] Comment on above: Performed By: #### R UBIGG #### [facility] [address] [address] [address] Zari Butcher HCG RANGE SEE BELOW Normal [facility] Comment on above: Result Comment: 5-50 0-1 WEEK 40-300 1-2 WEEKS 100-1,000 2-3 WEEKS 500-6,000 3-4 WEEKS 5,000-200,000 1-2 MONTHS 10,000-100,000 2-3 MONTHS 3,000-50,000 2ND TRIMESTER 1,000-50,000 3RD TRIMESTER Performed By: #### R UBIGG #### [facility] [address] [address] [address] Zari SMITHOVlisa 04-18-2019 GLYNN Office Visit (BREANNE ) PRUDENCIO MIN ([id number]) 1995 F Date Time Provider Department 04/18/19 9:00 AM MARIN BARTLETT During your visit today, we recorded the following information about you: Pulse Blood pressure Weight Height 87/minute 133/62 137 kg 1.562 m Marin Bartlett MD 04/18/2019 10:41 AM Signed OTONEUROLOGY CONSULTATION Referral source: Andrea Vargas ([facility]), AP* Chief Complaint: Dizziness: Spinning vs swaying Imbalance Headache Pre/syncope ##################### ##################### ##################### ### ##################### ##################### ##################### ### Impressions: Issues of dizziness, imbalance, headache, neck [...] the patient. Neck physical therapy: Sonia [place]. Vestibular rehabilitation afterward. Migraine: - Start magnesium [...] call in one week to report status. ##################### ##################### ##################### ### ##################### ##################### ##################### ### ##################### ##################### ##################### ### History: Preceding URI symptoms: No Onset of symptoms: In usual state of health until 08/25. Was sitting at work. Mild dizziness and then LOC (unknown duration). Was confused afterward the rest of the day. 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 [...] a MCGEE Especially white lights Few minutes ##################### ##################### ##################### ### # Dizziness # # Inc Dec N/C Visual motion sens. # # IIB X typically better with laying down / very quickly # Fluor: # Roll x # Flash: # Look Up y # TV: n/a # Look Down y PC / phone: y (blurry vision / spinning) # Car: # OOB +- Pass: +- (no h/o motion sickness) # Retrieval Specialist: +- (does not drive far / much) # Bending Store: Y (sometimes more problems in [employer]) # Upon Up # # Stress x # # Fatigue ?Y # # Time of Day x # ##################### ##################### ##################### ## Vestibular: Dizziness: (see hpi) Imbalance: sometimes / [...] present Has IUD in. 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 Presyncope - see hpi Sens to hot showers - none Palp - none Pulmonary: Dyspnea on Exertion: at times - since being less active Psychiatry: Anxiety / Depression: Both / old issue - on celexa - w/ benefit ##################### ##################### ##################### ### The diagnostic work-up for this problem thus far has included: Consultation Dx Date Location ER y PCP y ENT n Neuro Georgina Andrea Cards y (not [facility]) GI ##################### ################# Testing Result Date Location Head CT 03/22/18 MRI 09/25/18 (+- contrast) - normal - per report MRA EEG y normal (per patient) EKG y Echo y TTT y 12/24/18 normal Audio n VNG n ##################### ############## Treatment for current illness: Medications: ibuprofen Procedures/Surgery: PT Other Neck - no VR - no Chiropractic manipulation - no ##################### ##################### ##################### ### Past Medical History: Head / Neck trauma: [...] reflux disease) - Headache Social History: 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 Dizziness: Mother - vertigo x 1 Headache: Mother, MGM, PGM - migraine cardiac: PGF, MGF Stroke: No Similar disorders: ##################### ##################### ##################### ### Physical Examination: Comprehensive neurological and otological examinations, [...] Gross LE to PP: N/T Coordination examination: Pwiutg-pg-detu testing was normal bilaterally. Yvvs-fr-hhtr testing was normal bilaterally. Postural stability: Romberg: normal Gait examination: Usual gait: normal Heel walk: normal Toe walk: normal Tandem (Forward): somewhat unsteady Tandem (Reverse): somewhat unsteady ##################### ##################### ##################### ### MCGEE 0 Dizziness 0 Frontal head pressure 3 - 0 w cervical traction No photo / phono ##################### ##################### ##################### ### The patient was personally seen and examined by myself. Marin Bartlett MD [facility] [place] [facility] T33 cc: Andrea Vargas ([facility]), EDITA Chen, DO * (sent via OutSystem[employer] - to sec*) (Results of consultation to be transmitted via electronic medical record for those providers who practice within [facility] or with access to OutSystems via MD Connect, or via letter) Total time of 81 minutes was spent with the patient regarding the above. Greater than 50% of time was spent on counselling. Referring Provider: ANDREA VARGAS ([facility]) [[id number]] Allergies As of Date: 04/18/2019 Noted Allergy Reaction AMOXICILLIN 2 - Rash PENICILLINS 06/30/2014 2 - Rash Date Reviewed: 04/18/2019 Reviewed by: Marin Bartlett - Fully Assessed Reason for Visit: Headache [52] Primary Visit Diagnosis:Vertigo of central origin, unspecified laterality [H81.49] Other Visit Diagnoses:Cervicocran ial syndrome [M53.0] Chronic migraine without aura, with intractable migraine, so stated, with status migrainosus [G43.711] Imbalance [R26.89] Syncope, unspecified syncope type [R55] Labyrinthitis of left ear [H83.02] Neck pain [M54.2] Order(s):methylPREDNI Solone (MEDROL, ALEXANDRA,) 4 mg Dose-PackAs instructed per [...] Encounter Status:Closed by MARIN BARTLETT MD on 7/12/19 Normal [facility] PROGRESSon 04-18-2019 PROGRESS HNO ID: [id number] Author: Marin Bartlett Service: ? Author Type: Physician Type: Progress Notes Filed: 04/18/2019 10:41 AM Note Text: OTONEUROLOGY CONSULTATION Referral source: Andrea Vargas ([employer]), AP* Chief Complaint: Dizziness: Spinning vs swaying Imbalance Headache Pre/syncope ##################### ##################### ##################### ### ##################### ##################### ##################### ### Impressions: Issues of dizziness, imbalance,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 Recommendations: Health care providers, please contact the [employer] Client Services Department at if you wish to speak with a clinical literacy consultant regarding this test result. Other testing available: [employer] recommends additional testing, if not already performed. [employer] currently offers the following antibody tests: anti-Hu, anti-Yo, anti-Zic4, anti-CV2, anti-Ma1, anti-Ta, anti-Ri, anti-Recoverin, anti-VGCC, anti-VGKC, anti-Amphiphysin, anti-NMDA, anti-GAD65, anti-LGI1, and anti-CASPR2. Please contact the [employer] Client [employer] Department or visit [employer] for information regarding additional testing that may [...] al. (2006) Semin Oncol 33: 270-98. (PMID: 36045677) 2. MAGDALENA Salinas, et al. (2011) Eur J Neurol 18: 19-e3. (PMID: 83019668) 3. Joanna Cabrera, et al. (2012) J Neurol Neurosurg Psychiatry 83: 638-45. (PMID: 27921351) 4. MR Maicol, et al. (2010) Oncologist 15: 603-17. (PMID: 04428887) 5. Carmelo Pena et al. (2008) Lancet Neurol 7: 327-40. (PMID: 26752104) 6. Carmelo Frederick et al. (2007) Orphanet J Rare Dis 2: 22. (PMID: 76904344) 7. Daquan Stokes et al. (2000) N Engl J Med 343: 847-55. (PMID: 36077459) This test was developed and its analytical performance characteristics have been determined by [employer]. It has not been cleared or approved by the U.S. Food and Drug Administration. This assay has been validated pursuant to the CLIA regulations and is used for clinical purposes. Laboratory oversight provided by Vince Mcfarlane, Ph.D., [facility], CLIA license ma, [employer] (CLIA# [id number]) Testing performed at: [employer] [address] [place] [id number] Performed By: #### C MP, MMA, B12, COPPER, SEPG, CBC, ENAID, ANA1 ####[facility] [place], [place] [phone]#### B1VIT ####[facility] [address] [place], [place] [phone] Methylmalonic Acidon 019 Methylmalonic Acid 165 nmol/L Normal 79-376 [facility] Comment on above: Result Comment: This test was developed and its performance characteristics determined by [facility]'s [facility] [place] ([facility]). It has not been cleared or approved by the FDA. [facility] is regulated under CLIA as qualified to perform high-complexity testing. This test is used for clinical purposes. It should not be regarded as investigational or for research. Performed By: #### C MP, MMA, B12, COPPER, SEPG, CBC, ENAID, ANA1 ####[facility] [address] [place], [place] [phone]#### B1VIT ####[facility] [address] [place], [place] [phone] PROGRESSon 11-29-2018 PROGRESS HNO ID: [id number] Author: Andrea Vargas Service: (none) Author Type: Nurse Practitioner Type: [...] was referred to cardiology and neurologist. The drafter (cad) electronic did an EKG, echo and holter monitor and per the patient it was normal. I have no records today. The drafter (cad) electronic wanted to do a tilt table test. The drafter (cad) electronic from [facility] sent her to us at [facility]. EEG was done locally that was [...] sleep disturbance: difficulty falling and staying asleep HEMATOLOGIC/LYMPHATIC /IMMUNOLOGIC:Negative for prolonged bleeding, bruising easily or swollen [...] 5/5biceps, 5/5 wrist extension, and 5/5 hand order selector. Finger extensor 5/5. Finger flexor 5/5. Pronation [...] of ankles. ? Coordination: Finger-to- nose-finger and vbge-fx-lfkp intact bilaterally. No ataxia of arms. No [...] with more than 50% of the total mvcc-uk-dwco time of the visit in counseling / [...] ID -TILT TABLE EVALUATION Andrea Vargas MSN, TEAM LEADER/RESEARCH PSYCHOLOGIST, MARBLE INSTALLER-C 1. This office note has been dictated [...] the discretion of your PCP/referring physician Normal [facility] Protein Electrophor.on 11-29 Albumin [Mass/Vol] 3.26 g/dL Low 3.37-4.23 [facility] Comment on above: Performed By: #### C MP, MMA, B12, COPPER, SEPG, CBC, ENAID, ANA1 ####[place] [phone]#### B1VIT ####[facility] [address] [place], [place] [phone] Alpha 1 Globulin 0.27 gm/dL Normal 0.18-0.31 [facility] Comment on above: Performed By: #### C MP, MMA, B12, COPPER, SEPG, CBC, ENAID, ANA1 ####[place] [phone]#### B1VIT ####[facility] [address] [place], [place] [phone] Alpha 2 Globulin 0.81 gm/dL Normal 0.52-0.97 [facility] Comment on above: Performed By: #### C MP, MMA, B12, COPPER, SEPG, CBC, ENAID, ANA1 ####[place] [phone]#### B1VIT ####[facility] [address] [place], [place] [phone] Beta Globulin 1.16 gm/dL Normal 0.84-1.36 [facility] Comment on above: Performed By: #### C MP, MMA, B12, COPPER, SEPG, CBC, ENAID, ANA1 ####[place] [phone]#### B1VIT ####[facility] [address] [place], [place] [phone] Gamma Globulin 1.50 gm/dL High 0.70-1.44 [facility] Comment on above: Performed By: #### C MP, MMA, B12, COPPER, SEPG, CBC, ENAID, ANA1 ####[address] [phone]#### B1VIT ####[facility] [address] [phone] Interpretation SEE COMMENT Normal [facility] Comment on above: Result Comment: No d efinitive M protein is identified on protein electrophoresis. Performed By: #### C MP, MMA, B12, COPPER, SEPG, CBC, ENAID, ANA1 ####[address] [phone]#### B1VIT ####[address] [phone] M Tigre Concentratn 0.00 gm/dL Normal 0.00 [facility] Comment on above: Performed By: #### C MP, MMA, B12, COPPER, SEPG, CBC, ENAID, ANA1 ####[address] [phone]#### B1VIT ####[address] [phone] Protein [Mass/Vol] 7.0 g/dL Normal 6.0-8.4 [facility] Comment on above: Performed By: #### C MP, MMA, B12, COPPER, SEPG, CBC, ENAID, ANA1 ####[address] [phone]#### B1VIT ####[address] [phone] Protein [Mass/Vol] N/A Normal [facility] Comment on above: Performed By: #### C MP, MMA, B12, COPPER, SEPG, CBC, ENAID, ANA1 ####[address] [phone]#### B1VIT ####[address] [phone] SPE Staff Review Reviewed by Carrington Akers MD ([id number]) Normal [facility] Comment on above: Performed By: #### C MP, MMA, B12, COPPER, SEPG, CBC, ENAID, ANA1 ####[address] [phone]#### B1VIT ####[address] [phone] Vitamin B1,Whole Bldon 11-29 Vitamin B1 Whole Bld 101 nmol/L Normal 70-180 [facility] Comment on above: Result Comment: (NOT E) INTERPRETIVE INFORMATION: Vitamin B1, Whole Blood This assay measures the concentration of thiamine diphosphate (TDP), the primary active form of vitamin B1. Approximately 90 percent of vitamin B1 present in whole blood is TDP. Thiamine and thiamine monophosphate, which comprise the remaining 10 percent, are not measured. Test developed and characteristics determined by [employer]. See Compliance Statement B: [email or web address] Application/ Performed by [employer], [address] [place] [address] [email or web address] Application, Nam Andres MD, Lab. Director Performed By: #### C MP, MMA, B12, COPPER, SEPG, CBC, ENAID, ANA1 ####[place] [id number] [place], [place] [phone]#### B1VIT ####[address] [phone] Vitamin B12on 11-29-2018 Cobalamin (Vitamin B12) [Mass/Vol] 419 pg/mL Normal 232-1245 [facility] Comment on above: Performed By: #### C MP, MMA, B12, COPPER, SEPG, CBC, ENAID, ANA1 #### [facility] [address] [place] [phone] #### B1VIT #### [facility] [address] [place] [address] [phone] Vital Signs Date Time Vital Sign Value Performing Clinician Facility 11-23-2024 05:00-0500 Diastolic blood pressure 84 mm[Hg] [facility] 11-23-2024 05:00-0500 Heart rate 79 /min [facility] 11-23-2024 05:00-0500 Mean blood pressure 103 mm[Hg] [facility] 11-23-2024 05:00-0500 SaO2% (BldA) [Mass fraction] 98 % [facility] 11-23-2024 05:00-0500 Systolic blood pressure 140 mm[Hg] [facility] 11-23-2024 04:00-0500 Diastolic blood pressure 86 mm[Hg] [facility] 11-23-2024 04:00-0500 Heart rate 84 /min [facility] 11-23-2024 04:00-0500 Mean blood pressure 98 mm[Hg] [facility] 11-23-2024 04:00-0500 SaO2% (BldA) [Mass fraction] 96 % [facility] 11-23-2024 04:00-0500 Systolic blood pressure 122 mm[Hg] [facility] 11-23-2024 03:56-0500 Diastolic blood pressure 97 mm[Hg] [facility] 11-23-2024 03:56-0500 Heart rate 83 /min [facility] 11-23-2024 03:56-0500 Mean blood pressure 110 mm[Hg] [facility] 11-23-2024 03:56-0500 Nursing Progress Note Reason Other: up to bathroom and back to bed. urine obtained. states feeling better [facility] 11-23-2024 03:56-0500 SaO2% (BldA) [Mass fraction] 95 % [facility] 11-23-2024 03:56-0500 Systolic blood pressure 137 mm[Hg] [facility] 11-23-2024 03:05-0500 Body temperature 97.34 [degF] [facility] 11-23-2024 03:05-0500 Heart rate 87 /min [facility] 11-23-2024 03:05-0500 Respiratory rate 20 /min [facility] 06-11-2024 09:44-0400 Body height 154.94 cm [facility] Elizabeth Nancy Work Phone: [facility] 06-11-2024 09:44-0400 Body mass index (BMI) [Ratio] 52.7 kg/m2 [facility] Elizabeth Nancy Work Phone: [facility] 06-11-2024 09:44-0400 Body temperature 98.4 [degF] [facility] Elizabeth Nancy Work Phone: [facility] 06-11-2024 09:44-0400 Body weight 126.55 kg DNP Elizabeth Nancy Work Phone: [facility] 06-11-2024 09:44-0400 Diastolic blood pressure 71 mm[Hg] DNP Elizabeth Terryle Work Phone: [facility] 06-11-2024 09:44-0400 Heart rate 79 /min DNP Elizabeth Stewartle Work Phone: [facility] 06-11-2024 09:44-0400 SaO2% (BldA) [Mass fraction] 95 % DNP Elizabeth Nancy Work Phone: [facility] 06-11-2024 09:44-0400 Systolic blood pressure 101 mm[Hg] DNP Elizabeth Kaple Work Phone: [facility] 01-03-2024 11:32-0400 Body height 154.94 cm DNP Eilzabeth Kaple Work Phone: [facility] 01-03-2024 11:32-0400 Body mass index (BMI) [Ratio] 53.5 kg/m2 DNP Elizabeth Kaple Work Phone: [facility] 01-03-2024 11:32-0400 Body weight 128.48 kg DNP Elizabeth Stewartle Work Phone: [facility] 01-03-2024 11:32-0400 Diastolic blood pressure 78 mm[Hg] DNP Elizabeth Kaple Work Phone: [facility] 01-03-2024 11:32-0400 Heart rate 94 /min DNP Elizabeth Stewartle Work Phone: [facility] 01-03-2024 11:32-0400 SaO2% (BldA) [Mass fraction] 98 % DNP Elizabeth Kaple Work Phone: [facility] 01-03-2024 11:32-0400 Systolic blood pressure 118 mm[Hg] DNP Elizabeth Kaple Work Phone: [facility] 12-19-2023 12:49-0400 Blood Pressure Location ALEXEI SON [facility] 12-19-2023 12:49-0400 Body temperature 100.22 [degF] ALEXEI POPETIZ [facility] 12-19-2023 12:49-0400 Diastolic blood pressure 76 mm[Hg] ALEXEI SON [facility] 12-19-2023 12:49-0400 Heart rate 120 /min ALEXEI SON [facility] 12-19-2023 12:49-0400 SaO2% (BldA) [Mass fraction] 97 % ALEXEI HUY [facility] 12-19-2023 12:49-0400 Systolic blood pressure 122 mm[Hg] ALEXEI HUY [facility] 12-04-2023 14:06-0500 Body height 154.94 cm DNP Elizabeth Kaple Work Phone: [facility] 12-04-2023 14:06-0500 Body mass index (BMI) [Ratio] 53.9 kg/m2 DNP Elizabeth Kaple Work Phone: [facility] 12-04-2023 14:06-0500 Body weight 129.47 kg DNP Elizabeth Kaple Work Phone: [facility] 12-04-2023 14:06-0500 Diastolic blood pressure 70 mm[Hg] DNP Elizabeth Kaple Work Phone: [facility] 12-04-2023 14:06-0500 Heart rate 95 /min DNP Elizabeth Kaple Work Phone: [facility] 12-04-2023 14:06-0500 Respiratory rate 18 /min DNP Elizabeth Kaple Work Phone: [facility] 12-04-2023 14:06-0500 SaO2% (BldA) [Mass fraction] 97 % DNP Elizabeth Kaple Work Phone: [facility] 12-04-2023 14:06-0500 Systolic blood pressure 110 mm[Hg] DNP Elizabeth Kaple Work Phone: [facility] 05-18-2023 20:45-0400 Diastolic blood pressure 79 mm[Hg] Mirza Walton CNP Work Phone: [facility] [employer] 05-18-2023 20:45-0400 Heart rate 88 /min Mirza Walton CNP Work Phone: [facility] [employer] 05-18-2023 20:45-0400 Respiratory rate 21 /min Mirza Walton CNP Work Phone: [facility] [employer] 05-18-2023 20:45-0400 SaO2% (BldA) [Mass fraction] 99 % Mirza Walton CNP Work Phone: [employer] 05-18-2023 20:45-0400 Systolic blood pressure 135 mm[Hg] Mirza Walton CNP Work Phone: [facility] [employer] 05-18-2023 19:50-0400 Body height 154.9 cm Mirza Walton CNP Work Phone: [facility] [employer] 05-18-2023 19:50-0400 Body mass index (BMI) [Ratio] 47.61 kg/m2 Mirza Walton CNP Work Phone: [facility] [employer] 05-18-2023 19:50-0400 Body temperature 98.2 [degF] Mirza Walton CNP Work Phone: [facility] [employer] 05-18-2023 19:50-0400 Body weight 114.31 kg Mirza Walton CNP Work Phone: [facility] [employer] 04-14-2023 13:36-0400 Body temperature 97.7 [degF] Barak Greer [facility] 04-14-2023 13:36-0400 Diastolic blood pressure 82 mm[Hg] Barak Greer [facility] 04-14-2023 13:36-0400 Heart rate 79 /min Barak Greer [facility] 04-14-2023 13:36-0400 Respiratory rate 18 /min Barak Greer [facility] 04-14-2023 13:36-0400 SaO2% (BldA) [Mass fraction] 98 % Barak Greer [facility] 04-14-2023 13:36-0400 Systolic blood pressure 119 mm[Hg] Barak Greer [facility] 05-06-2022 02:27-0400 Diastolic blood pressure 74 mm[Hg] Kaylinn Dokken [facility] 05-06-2022 02:27-0400 Heart rate 85 /min Kaylinn Dokken [facility] 05-06-2022 02:27-0400 Mean blood pressure 93 mm[Hg] Kaylinn Dokken [facility] 05-06-2022 02:27-0400 Systolic blood pressure 130 mm[Hg] Kaylinn Dokken [facility] 05-06-2022 00:59-0400 Body temperature 97.88 [degF] Kaylinn Dokken [facility] 05-06-2022 00:59-0400 Diastolic blood pressure 83 mm[Hg] Kaylinn Dokken [facility] 05-06-2022 00:59-0400 Heart rate 103 /min Kaylinn Dokken [facility] 05-06-2022 00:59-0400 Respiratory rate 20 /min Kaylinn Dokken [facility] 05-06-2022 00:59-0400 SaO2% (BldA) [Mass fraction] 98 % Kaylinn Dokken [facility] 05-06-2022 00:59-0400 Systolic blood pressure 120 mm[Hg] Tiffanie Dukes [facility] Encounters Encounter Date Encounter Type Care Provider Facility Start: 03-05-2025 End: 03-05-2025 Bamboo flowsheet Mark Connie DO Work Phone: [facility] Start: 03-05-2025 End: 03-05-2025 Bamboo flowsheet Mark Connie DO Work Phone: [facility] Start: 11-23-2024 End: 11-23-2024 Emergency department patient visit Debra Juan Facility:[facility] Start: 06-11-2024 End: 06-11-2024 ambulatory DNP Elizabeth Nancy Work Phone: [facility] Work Phone: Start: 06-11-2024 End: 06-11-2024 Patient encounter procedure DNP Elizabeth Nancy Work Phone: [facility] Work Phone: Start: 02-26-2024 End: 02-26-2024 ambulatory MARK CONNIE Not Available Start: 01-03-2024 End: 01-03-2024 ambulatory DNP Elizabeth Nancy Work Phone: [facility] Work Phone: Start: 01-03-2024 End: 01-03-2024 Patient encounter procedure DNP Elizabeth Nancy Work Phone: [facility] [place] Work Phone: Start: 12-28-2023 End: 12-28-2023 Patient encounter procedure DNP Elizabeth Nancy Work Phone: [facility] Start: 12-28-2023 End: 12-28-2023 ambulatory DNP Elizabeth Nancy Work Phone: [facility] Work Phone: Start: 12-19-2023 End: 12-19-2023 ambulatory ALEXEI SON Facility:[facility] Start: 12-19-2023 End: 12-19-2023 Lab Drop off [facility] Start: 12-19-2023 End: 12-19-2023 ambulatory [facility] Facility:[facility] Start: 12-19-2023 End: 12-19-2023 Patient encounter procedure [facility] Start: 12-04-2023 End: 12-04-2023 Patient encounter procedure DNP Elizabeth Nancy Work Phone: [facility] [place] Work Phone: Start: 05-28-2023 End: 05-28-2023 ambulatory ELSA SCOTT [facility] Start: 05-24-2023 End: 05-24-2023 Subsequent hospital visit by physician Phone Pre Admission Testing [facility] Pre-Admission Testing Comment on above: No Show Start: 05-18-2023 End: 05-19-2023 [facility] Start: 05-18-2023 End: 05-18-2023 Emergency department patient visit Mirza Mcmullen TEAM LEADER/RESEARCH PSYCHOLOGIST - [employer] Work Phone: [facility] Comment on above: Calculus of gallblad jonna without cholecystitis without obstruction (Primary Dx) Start: 04-14-2023 End: 04-14-2023 Emergency department patient visit Barak Zoey [facility] Start: 11-13-2022 End: 11-13-[address] RAMON MCKINNON . Facility: Start: 11-09-2022 End: 11-09-[address] MARK ROSALES . Facility:[facility] Start: 11-08-2022 Encounter for preprocedural laboratory examination DR MARK ROSALES . [facility] Start: 11-07-2022 End: 11-08-[address] MARK ROSALES . Facility:[facility] Start: 11-07-2022 End: 11-08-2022 Encounter for preprocedural laboratory examination DR MARK ROSALES . Facility:[facility] Start: 11-01-2022 Encounter for other preprocedural examination DR MARK ROSALES . [facility] Start: 10-30-2022 End: 10-31-2022 ambulatory LEA TRIANA [...] 05-06-2022 Emergency department patient visit Tiffanie Dukes [facility] Start: 04-01-2022 End: 04-01-2022 ambulatory NONE LISTED REQUEST Facility:[facility] Start: 03-08-2022 End: 03-09-[address] MARK ROSALES . Facility:[facility] Start: 02-17-2022 End: 02-18-[address] MARK ROSALES . Facility:[facility] Start: 01-25-2022 End: 01-26-[address] MARK ROSALES . Facility:[facility] Start: 03-14-2018 End: 04-13-2018 Preoperative state Mirza Walton CNP Work Phone: [facility] Procedures Date Procedure Procedure Detail Performing Clinician Start: 06-11-2024 Radiologic examination of knee DNP Elizabeth Stewartyuan Work Phone: Start: 05-18-2023 Us abdominal real time w/image limited Zainab Rios PA-C Work Phone: Start: 05-18-2023 Ecg routine ecg w/least 12 lds w/i&r Zainab Rios PA-C Work Phone: Start: 05-18-2023 End: 05-18-2023 Comprehensive metabolic panel Zainab Rios PA-C Work Phone: Start: 09-18-2022 Extraction of Products of Conception, Low Cervical, Open Approach DR MARK ROSALES . Start: 07-22-2021 section Hunterfelice Dukes Start: 12-10-2019 Flexible fiberoptic sigmoidoscopy Tiffanie Dukes Start: 01-24-2018 Microscopic observation [Identifier] in Cervix by Cyto stain Mirza Walton CNP Work Phone: Start: 08-16-2017 Excision pilonidal cyst/sinus simple Tiffanie Dukes Start: 08-14-2011 Appendectomy Tiffanie Dukes Appendectomy Appendectomy( Confirmed ) Tiffanie Dukes Cholecystectomy ALEXEI OR TIJamar Plan of Treatment Date Care Activity Detail Author Start: 07-25-2031 DTaP/Tdap/Td vaccine (2 - Tdap) DTaP/Tdap/Td vaccine (2 - Tdap) [facility] Start: 03-05-2025 End: 03-05-2025 Patient encounter procedure 03/05/2025 10:00 AM EDT Office Visit [facility] [address] [place] [address] Mark Rosales, [address] [place], [place] [id number] Arrived [facility] Comment on above: Arrived Start: 06-11-2024 Radiologic examinati on of knee XR knee LT 4V* [facility] Start: 06-11-2024 XR Knee - left 4 Views [facility] Start: 12-04-2023 Patient referral [facility] Work Phone: Start: 05-08-2023 Influenza vaccination Flu vaccine (# 1) [facility] Start: 01-24-2021 Screening for malign ant neoplasm of cervix Pap smear [facility] Start: 2012 DTaP/Tdap/Td vaccine (1 - Tdap) DTaP/Tdap/Td vaccine (1 - Tdap) [facility] Start: 2011 Hepatitis C screening Hepatitis C sc reen [facility] Start: 2008 HIV screening HIV screen [facility] Start: 2005 Depression Screen Depression Screen [facility] Start: 1994 Varicella vaccine (1 of 2 - 2-dose childhood series) Varicella vaccine (1 of 2 - 2-dose childhood series) [facility] Start: 01-10-1994 COVID-19 Vaccine (#1) COVID-19 Vacci ne (#1) [facility] End: 05-18-2023 Ct abdomen & pelvis w/contrast material [facility] Work Phone: Comment on above: Once for 1 Occurrenc es starting 05/18/2023 until 05/18/2023 EKG 12 Lead EKG 12 Lead ECG Routine 05/18/2023 8:05 PM EDT [employer] [facility] Patient referral [facility] Work Phone: Immunizations Immunization Date Immunization Notes Care Provider Fa cility NEGATED: Highlighted row has not occurred!12-19-2023 influenza virus vaccine, unspecified formulation [facility] NEGATED: Highlighted row has not occurred!12-19-2023 SARS-CoV-2 mRNA (tozinameran 5y-11y) vaccine [facility] NEGATED: Highlighted row has not occurred!12-01-2019 influenza virus vaccine, live, attenuated, for intranasal use Tiffanie Dukes [facility] Payers Date Payer Category Payer Self-pay [id number] 2022 [facility] [id number] 1993 Unknown [id number] 2.16.840.1.079209.3.579.2. 593 1993 Unknown [id number] 2.16.840.1.924803.3.579.2. 593 1993 Unknown [id number] 2.16.840.1.808330.3.579.2. 593 1993 Unknown [id number] 2.16.840.1.919068.3.579.2. 593 1993 Unknown [id number] 2.16.840.1.902838.3.579.2. 593 1993 Unknown [id number] 2.16.840.1.278148.3.579.2. 593 1993 Unknown [id number] 2.16.840.1.907124.3.579.2. 593 1993 Unknown [id number] 2.16.840.1.304235.3.579.2. 593 1993 Unknown [id number] 2.16.840.1.527003.3.579.2. 593 1993 Unknown [id number] 2.16.840.1.356520.3.579.2. 593 1993 Unknown [id number] 2.16.840.1.939578.3.579.2. 593 1993 Unknown [id number] 2.16.840.1.140360.3.579.2. 593 1993 Unknown [id number] 2.16.840.1.010735.3.579.2. 593 1993 Unknown [id number] 2.16.840.1.972134.3.579.2. 593 1993 Unknown [id number] 2.16.840.1.199095.3.579.2. 593 1993 Unknown [id number] 2.16.840.1.383942.3.579.2. 593 1993 Unknown [id number] 2.16.840.1.311074.3.579.2. 593 1993 Unknown [id number] 2.16.840.1.407108.3.579.2. 593 1993 Unknown [id number] 2.16.840.1.529925.3.579.2. 593 1993 Unknown [id number] 2.16.840.1.981867.3.579.2. 182 1993 Unknown [id number] 2.16.840.1.390285.3.579.2. 182 1993 Unknown [id number] 2.16.840.1.256505.3.579.2. 1259 1993 Unknown [id number] 2.16.840.1.840008.3.579.2. 727 1993 Unknown [id number] 2.16.840.1.635161.3.579.2. 727 1993 Unknown [id number] 2.16840.1.727510.3.579.2. 727 1993 Unknown [id number] 2.16.840.1.148001.3.579.2. 727 1959 Self-pay [id number] 1959 Unknown [id number] 1959 Unknown [id number] Unknown [id number] Unknown [id number] .16.840.1.929719.3.579.2. 531 Unknown [id number] 2.16.840.1.236374.3.579.2. 531 Social History Date Type Detail Facility Start: 01-03-2022 End: 11-23-2024 Tobacco smoking status Ex-smoker (finding) [facility] Tobacco smoking status Never [facility] Start: 02-26-2024 Sex Assigned At Female F [facility] Start: 10-08-2014 End: 01-01-2016 History of tobacco use Current smoker [facility] Start: 10-08-2014 End: 10-08-2015 History of tobacco use Cigarette Smoker [facility] Start: 03-12-2018 End: 02-26-2024 Cigarettes smoked current (pack per day) - Reported 0.3 [facility] Start: 03-12-2018 End: 03-20-2023 Tobacco use and exposure Smokeless tobacco non-user [facility] Start: 05-18-2023 End: 05-24-2023 Alcohol intake Current non-drinker of alcohol (finding) [facility] Start: 03-12-2018 End: 05-22-2023 Tobacco Comment quit 2015 [facility] Start: 1993 Sex Assigned At Not on file [facility] Start: 03-20-2023 End: 12-04-2023 Tobacco smoking status NHIS Never smoked tobacco (finding) [facility] Start: 1993 Sex Assigned At Female F [facility] Start: 02-26-2024 Alcoholic beverage intake Lifetime non-drinker (finding) [facility] Functional Status Date Assessment Result Facility 11-23-2024 Functional Status N/A [facility] 12-19-2023 Functional Status N/A [facility] 04-14-2023 Functional Status N/A [facility] 05-06-2022 Functional Status N/A [facility] Clinical Notes 05-06-2022 to 11-23-2024 Note Date & Type Note Facility 11-23-2024 Evaluation + Plan note Extrac carie from: Title:ED Note Author:Drake Bynum, Debra Boss te:11/23/24 1. Vomiting and diarrhea (R1 1.10: Vomiting, unspecified) 2. Near syncope (R55: Syncope and collapse) Diarrhea, unspecified (R19.7: Diarrhea, unspecified) Orders: ondansetron, 4 mg = 2 mL, Injection, IV Push, Once, Stop date 11/23/24 3:20:00 EST, STAT, Start date 11/23/24 3:20:00 EST, 11/23/24 3:20:00 EST ondansetron, 4 mg = 1 tab(s), Oral, q6hr, PRN Nausea/Vomiting, # 12 tab(s), Refills(s) 0, Pharmacy: [facility]/pharmacy #[id number], 155, cm, 11/23/24 3:07:00 EST, Height/Length Dosing, 121.8, kg, 11/23/24 3:07:00 EST, Weight Dosing Sodium Chloride 0.9% intravenous solution, 1,000 mL, Soln-IV, IV, Once, Stop date 11/23/24 3:20:00 EST, STAT, Start date 11/23/24 3:20:00 EST, Infuse over 61, minute(s) Basic Metabolic Panel CBC w/ Auto Diff ECG 12 Lead Adult eGFR Hepatic Function Panel Influenza A&B Ag Lipase Level Magnesium Level Rapid COVID Antigen ([facility]) Troponin 0 Hr. UA with Cult Rflx Urine Culture Diagnostic Tests Pending * Urine Culture 11/23/24 [facility] 02-16-2025 Hospital Discharge instructions Patient Education 11/23/2024 05:18:31 Diarrhea, Adult Diarrhea, Adult Diarrhea is frequent loose and sometimes watery bowel movements. Diarrhea can make you feel weak and cause you to become dehydrated. Dehydration is a condition in which there is not enough water or other fluids in the body. Dehydration can make you tired and thirsty, cause you to have a dry mouth, and decrease how often you urinate. Diarrhea typically lasts 2 3 days. However, it can last longer if it is a sign of something more serious. It is important to treat your diarrhea as told by your health care provider. Follow these instructions at home: Eating and drinking Follow these recommendations as told by your health care provider: Take an oral rehydration solution (ORS). This is an wdzv-qhe-asyries medicine that helps return your body to its normal balance of nutrients and water. It is found at pharmacies and retail stores. Drink enough fluid to keep your urine pale yellow. ?Drink fluids such as water, diluted fruit juice, and low-calorie sports drinks. You can drink milkalso, if desired. Sucking on ice chips is another way to get fluids. ?Avoid drinking fluids that contain a lot of sugar or caffeine, such as soda, energy drinks, and regular sports drinks. ?Avoid alcohol. Eat bland, zxki-hq-sxgwpc foods in small amounts as you are able. These foods include bananas, applesauce, rice, lean meats, toast, and crackers. Avoid spicy or fatty foods. Medicines Take gfdx-ffk-ikgyysq and prescription medicines only as told by your health care provider. If you were prescribed antibiotics, take them as told by your health care provider. Do not stop using the antibiotic even if you start to feel better. General instructions Wash your hands often using soap and water for at least 20 seconds. If soap and water are not available, use hand yield clerk. Others in the household should wash their hands as well. Hands should be washed: ?After using the toilet or changing a diaper. ?Before preparing, cooking, or serving food. ?While caring for a sick person or while visiting someone in a hospital. Rest at home while you recover. Take a warm bath to relieve any burning or pain from frequent diarrhea episodes. Watch your condition for any changes. Contact a health care provider if: You have a fever. Your diarrhea gets worse. You have new symptoms. You vomit every time you eat or drink. You feel light-headed, dizzy, or have a headache. You have muscle cramps. You have signs of dehydration, such as: ?Dark urine, very little urine, or no urine. ?Cracked lips. ?Dry mouth. ?Sunken eyes. ?Sleepiness. ?Weakness. You have bloody or black stools or stools that look like tar. You have severe pain, cramping, or bloating in your abdomen. Your skin feels cold and clammy. You feel confused. Get help right away if: You have chest pain or your heart is beating very quickly. You have trouble breathing or you are breathing very quickly. You feel extremely weak or you faint. These symptoms may be an emergency. Get help right away. Call 911. Do not wait to see if the symptoms will go away. Do not drive yourself to the hospital. This information is not intended to replace advice given to you by your health care provider. Make sure you discuss any questions you have with your health care provider. Document Revised: 03/13/2023 Document Reviewed: 03/13/2023 [employer] Patient Education 2023 [employer]. 11/23/2024 05:18:31 Nausea and Vomiting, Adult Nausea and Vomiting, Adult Nausea is the feeling that you have an upset stomach or that you are about to vomit. As nausea getsworse, it can lead to vomiting. Vomiting is when stomach contents forcefully come out of your mouthas a result of nausea. Vomiting can make you feel weak and cause you to become dehydrated. Dehydration can make you feel tired and thirsty, cause you to have a dry mouth, and decrease how often you urinate. Older adults and people with other diseases or a weak disease-fighting system (immune system) are at higher risk for dehydration. It is important to treat your nausea and vomiting as told by your health care provider. Follow these instructions at home: Watch your symptoms for any changes. Tell your health care provider about them. Eating and drinking Take an oral rehydration solution (ORS). This is a drink that is sold at pharmacies and retail stores. Drink clear fluids slowly and in small amounts as you are able. Clear fluids include water, ice chips, low-calorie sports drinks, and fruit juice that has water added (diluted fruit juice). Eat bland, iqec-zn-bmnbws foods in small amounts as you are able. These foods include bananas, applesauce, rice, lean meats, toast, and crackers. Avoid fluids that contain a lot of sugar or caffeine, such as energy drinks, sports drinks, and soda. Avoid alcohol. Avoid spicy or fatty foods. General instructions Take oerj-emj-dzlupdv and prescription medicines only as told by your health care provider. Drink enough fluid to keep your urine pale yellow. Wash your hands often using soap and water for at least 20 seconds. If soap and water are not available, use hand yield clerk. Make sure that everyone in your household washes their hands well and often. Rest at home while you recover. Watch your condition for any changes. Take slow and deep breaths when you feel nauseous. Keep all follow-up visits. This is important. Contact a health care provider if: Your symptoms get worse. You have new symptoms. You have a fever. You cannot drink fluids without vomiting. Your nausea does not go away after 2 days. You feel light-headed or dizzy. You have a headache. You have muscle cramps. You have a rash. You have pain while urinating. Get help right away if: You have pain in your chest, neck, arm, or jaw. You feel extremely weak or you faint. You have persistent vomiting. You have vomit that is bright red or looks like black coffee grounds. You have bloody or black stools (feces) or stools that look like tar. You have a severe headache, a stiff neck, or both. You have severe pain, cramping, or bloating in your abdomen. You have difficulty breathing, or you are breathing very quickly. Your heart is beating very quickly. Your skin feels cold and clammy. You feel confused. You have signs of dehydration, such as: ?Dark urine, very little urine, or no urine. ?Cracked lips. ?Dry mouth. ?Sunken eyes. ?Sleepiness. ?Weakness. These symptoms may be an emergency. Get help right away. Call 911. Do not wait to see if the symptoms will go away. Do not drive yourself to the hospital. Summary Nausea is the feeling that you have an upset stomach or that you are about to vomit. As nausea getsworse, it can lead to vomiting. Vomiting can make you feel weak and cause you to become dehydrated. Follow instructions from your health care provider about eating and drinking to prevent dehydration. Take hpwh-mec-rujbunn and prescription medicines only as told by your health care provider. Contact your health care provider if your symptoms get worse, or you have new symptoms. Keep all follow-up visits. This is important. This information is not intended to replace advice given to you by your health care provider. Make sure you discuss any questions you have with your health care provider. Document Revised: 03/31/2022 Document Reviewed: 03/31/2022 [employer] Patient Education 2023 [employer]. 11/23/2024 05:18:31 Near-Syncope Near-Syncope Near-syncope is when you suddenly feel like you might pass out or faint, but you do not actually lose consciousness. This may also be referred to as presyncope. During an episode of near-syncope, youmay: Feel dizzy, weak, light-headed, or like the room is spinning. Feel nauseous. See spots or see all white or all black in your field of vision. Have cold, clammy skin or feel warm and sweaty. Hear ringing in your ears (tinnitus). This condition is caused by a sudden decrease in blood flow to the brain. This decrease can result from various causes, but most of those causes are not dangerous. However, near-syncope may be a signof a serious medical problem, so it is important to seek medical care. Follow these instructions at home: Medicines Take pikw-pyn-nndymaj and prescription medicines only as told by your health care provider. If you are taking blood pressure or heart medicine, get up slowly and take several minutes to sit and then stand. This can reduce dizziness and decrease the risk of near-syncope. Lifestyle Do not drive, use machinery, or play sports until your health care provider says it is okay. Do not drink alcohol. Do not use any products that contain nicotine or tobacco. These products include cigarettes, chewing tobacco, and vaping devices, such as e-cigarettes. If you need help quitting, ask your health careprovider. Avoid hot tubs and saunas. General instructions Pay attention to any changes in your symptoms. Talk with your health care provider about your symptoms. You may need to have testing to understandthe cause of your near-syncope. If you start to feel like you might faint, sit or lie down right away. If sitting, put your head down between your legs. If lying down, raise (elevate) your feet above the level of your heart. ?Breathe deeply and steadily. Wait until all of the symptoms have passed. ?Have someone stay with you until you feel stable. Drink enough fluid to keep your urine pale yellow. Avoid prolonged standing. If you must stand for a long time, do movements such as: ?Moving your legs. ?Crossing your legs. ?Flexing and stretching your leg muscles. ?Squatting. Keep all follow-up visits. This is important. Contact a health care provider if: You continue to have episodes of near fainting. Get help right away if: You faint. You have any of these symptoms that may indicate trouble with your heart: ?Fast or irregular heartbeats (palpitations). ?Unusual pain in your chest, abdomen, or back. ?Shortness of breath. You have a seizure. You have a severe headache. You are confused. You have vision problems. You have severe weakness or trouble walking. You are bleeding from your mouth or rectum, or have black or tarry stool. These symptoms may represent a serious problem that is an emergency. Do not wait to see if your symptoms will go away. Get medical help right away. Call your local emergency services (911 in the [place] Do not drive yourself to the hospital. Summary Near-syncope is when you suddenly feel like you might pass out or faint, but you do not actually lose consciousness. This condition is caused by a sudden decrease in blood flow to the brain. This decrease can result from various causes, but most of those causes are not dangerous. Near-syncope may be a sign of a serious medical problem, so it is important to seek medical care. If you start to feel like you might faint, sit or lie down right away. If sitting, put your head down between your legs. If lying down, raise (elevate) your feet above the level of your heart. Talk with your health care provider about your symptoms. You may need to have testing to understandthe cause of your near-syncope. This information is not intended to replace advice given to you by your health care provider. Make sure you discuss any questions you have with your health care provider. Document Revised: 02/02/2022 Document Reviewed: 02/02/2022 [employer] Patient Education 2023 [employer]. Follow Up Care 11/23/2024 02:58:09 With:ELIZABETH CRUZ Address: [place] [address] Business (1) When:11/26/2024 Comments:Return to the emergency room if your vomiting recurs or any new symptoms. [facility] 02-16-2025 NoteED Patient Education Note Gastroenterology Nausea and Vomiting, Adult Nausea is the feeling that you have an upset stomach or that you are about to vomit. As nausea getsworse, it can lead to vomiting. Vomiting is when stomach contents forcefully come out of your mouthas a result of nausea. Vomiting can make you feel weak and cause you to become dehydrated. Dehydration can make you feel tired and thirsty, cause you to have a dry mouth, and decrease how often you urinate. Older adults and people with other diseases or a weak disease-fighting system (immune system) are at higher risk for dehydration. It is important to treat your nausea and vomiting as told by your health care provider. Follow these instructions at home: Watch your symptoms for any changes. Tell your health care provider about them. Eating and drinking ??? Take an oral rehydration solution (ORS). This is a drink that is sold at pharmacies and retail stores. ??? Drink clear fluids slowly and in small amounts as you are able. Clear fluids include water, icechips, low-calorie sports drinks, and fruit juice that has water added (diluted fruit juice). ??? Eat bland, iapw-mw-zreqfm foods in small amounts as you are able. These foods include bananas, applesauce, rice, lean meats, toast, and crackers. ??? Avoid fluids that contain a lot of sugar or caffeine, such as energy drinks, sports drinks, andsoda. ??? Avoid alcohol. ??? Avoid spicy or fatty foods. General instructions ??? Take arwg-ncv-zmtqbvb and prescription medicines only as told by your health care provider. ??? Drink enough fluid to keep your urine pale yellow. ??? Wash your hands often using soap and water for at least 20 seconds. If soap and water are not available, use hand yield clerk. ??? Make sure that everyone in your household washes their hands well and often. ??? Rest at home while you recover. ??? Watch your condition for any changes. ??? Take slow and deep breaths when you feel nauseous. ??? Keep all follow-up visits. This is important. Contact a health care provider if: ??? Your symptoms get worse. ??? You have new symptoms. ??? You have a fever. ??? You cannot drink fluids without vomiting. ??? Your nausea does not go away after 2 days. ??? You feel light-headed or dizzy. ??? You have a headache. ??? You have muscle cramps. ??? You have a rash. ??? You have pain while urinating. Get help right away if: ??? You have pain in your chest, neck, arm, or jaw. ??? You feel extremely weak or you faint. ??? You have persistent vomiting. ??? You have vomit that is bright red or looks like black coffee grounds. ??? You have bloody or black stools (feces) or stools that look like tar. ??? You have a severe headache, a stiff neck, or both. ??? You have severe pain, cramping, or bloating in your abdomen. ??? You have difficulty breathing, or you are breathing very quickly. ??? Your heart is beating very quickly. ??? Your skin feels cold and clammy. ??? You feel confused. ??? You have signs of dehydration, such as: ? Dark urine, very little urine, or no urine. ? Cracked lips. ? Dry mouth. ? Sunken eyes. ? Sleepiness. ? Weakness. These symptoms may be an emergency. Get help right away. Call 911. ??? Do not wait to see if the symptoms will go away. ??? Do not drive yourself to the hospital. Summary ??? Nausea is the feeling that you have an upset stomach or that you are about to vomit. As nausea gets worse, it can lead to vomiting. Vomiting can make you feel weak and cause you to become dehydrated. ??? Follow instructions from your health care provider about eating and drinking to prevent dehydration. ??? Take apkx-iki-hbqzysl and prescription medicines only as told by your health care provider. ??? Contact your health care provider if your symptoms get worse, or you have new symptoms. ??? Keep all follow-up visits. This is important. This information is not intended to replace advice given to you by your health care provider. Make sure you discuss any questions you have with your health care provider. Document Revised: 03/31/2022 Document Reviewed: 03/31/2022 [employer] Patient Education ? 2023 [employer]. Infectious Disease Diarrhea, Adult Diarrhea is frequent loose and sometimes watery bowel movements. Diarrhea can make you feel weak and cause you to become dehydrated. Dehydration is a condition in which there is not enough water or other fluids in the body. Dehydration can make you tired and thirsty, cause you to have a dry mouth, and decrease how often you urinate. Diarrhea typically lasts 2?3 days. However, it can last longer if it is a sign of something more serious. It is important to treat your diarrhea as told by your health care provider. Follow these instructions at home: Eating and drinking (more content not included)...[facility]03-13-2024 Hospital Discharge instructions Patient Education 12/19/2023 13:21:22 BMI for Adults BMI for Adults What is BMI? Body mass index (BMI) is a number that is calculated from a person's weight and height. BMI can help estimate how much of a person's weight is composed of fat. BMI does not measure body fat directly.Rather, it is an alternative to procedures that [...] your height. Both height and weight are measured,and the BMI is calculated from those numbers. This can be done either in [place] ([place] or metric measurements. Note that charts and online BMI calculators are available to help you find your BMI quickly and easily without having to do these calculations yourself. To calculate your BMI in [place] ([place] measurements: 1.Measure your weight in pounds [...] inches squared measurement is 70 inches x 70inches, which equals 4,900 inches squared. 4.Divide the [...] muscular build, such as an athlete, may havea BMI that is higher than 24.9. In cases like these, BMI is not an accurate measure of body fat. To determine if excess body fat is the cause of a BMI of 25 or higher, further assessments may needto be done by a health care provider. BMI is usually interpreted in the same way for men and women. Where to find more information For more information about BMI, including tools to quickly calculate your BMI, go to these websites: Centers for Disease Control and Prevention: www.cdc.gov [place] Heart Association: www.heart.org National Heart, Lung, and Blood [place]: www.nhlbi.nih.gov Summary Body mass index (BMI) is a number that is calculated from a person's weight and height. BMI may help estimate how much of a person's weight is composed of fat. BMI can help identify thosewho may be at higher risk for certain medical problems. BMI can be measured using Belgian measurements or metric measurements. BMI charts are used to identify whether you are underweight, normal weight, overweight, or obese. This information is not intended to replace advice given to you by your health care provider. Make sure you discuss any questions you have with your health care provider. Document Revised: 06/16/2020 Document Reviewed: 04/23/2020 [employer] Patient Education 2022 [employer]. 12/19/2023 13:21:18 Otitis Media, Adult, Avol-ca-Zgoe Otitis Media, Adult Otitis media is a [...] tube. This tube connects the middle ear tothe back of the nose. It normally allows [...] pain. Follow these instructions at home: Take tquz-nev-rhbwsvp and prescription medicines only as told by [...] provider. Document Revised: 01/02/2022 Document Reviewed: 01/02/2022 [employer] Patient Education 2022 [employer]. 12/19/2023 13:21:15 Pharyngitis, Hccw-ri-Pxgz Pharyngitis Pharyngitis is a sore throat (pharynx). [...] Follow these instructions at home: Medicines Take hgfy-tvq-hitzeui and prescription medicines only as told by [...] and water are not available, use hand yield clerk. Do not touch your eyes, nose, or [...] away. Call your local emergency services (911 int [place] Do not wait to see if [...] provider. Document Revised: 12/21/2021 Document Reviewed: 12/21/2021 [employer] Patient Education 2022 [employer]. Follow Up Care 12/19/2023 11:23:19 With:ELIZABETH CRUZ CNP Address: [place] [address]- When: Unknown [facility] 03-13-2024 Evaluation + Plan note Diagnostic Tests Pending * Group A Strep by PCR 12/19/23 [facility]08-17-2023 History of Present illness Narrative* Antoinette Heard RN - 05/24/2023 10:17 AM EDT PAT call placed to patient, reviewing meds, history, allergies PAT instruction sheet. [facility] Discharge instructions Patient Education 04/14/2023 14:12:18 Wrist Sprain, [...] have a splint, brace, or cast on yourwrist. Do exercises as told by your health care provider. Return to your normal activities as told by your health care provider. Ask your health care provider what activities are safe for you. General instructions Take ghuh-hmg-bwqcmix and prescription medicines only as told by your health care provider. Do not use any products that contain nicotine or tobacco, such as cigarettes, e- cigarettes, and chewing tobacco. These can delay healing. [...] provider. Document Revised: 01/31/2021 Document Reviewed: 01/31/2021 [employer] Patient Education 2022 [employer]. 04/14/2023 14:12:18 RICE Therapy for Routine Care [...] health care provider about how you should limityour activities and whether you should start wivdz-nd-xzazke exercises for your injury. Ice Ice your [...] If possible, elevate your injured area at orabove the level of your heart or the center of your chest. Contact a health care provider if: Your pain and swelling continue. Your symptoms are getting worse rather than improving. Having these problems may mean that you need further evaluation or imaging tests, such as X-rays vick MRI. Sometimes, X-rays may not show a small broken bone (fracture) until days after the injury happened. Make a follow-up appointment with your health care provider. Ask your health care provider,or the department that is doing the imaging test, when your results will be ready. Get help right away if: You have sudden severe pain at or below the area of your injury. You have redness or increased swelling around your injury. You have tingling or numbness at or below the area of your injury and it does not improve after youremove the elastic bandage. Summary The routine care [...] provider. Document Revised: 11/29/2020 Document Reviewed: 06/14/2018 [employer] Patient Education 2020 [employer] Follow Up Care 04/14/2023 13:31:33 With:[employer] [employer] [facility] Address: [address] [place], [place] [address] [address] Business (1) When:04/17/2023 14:10:40 With:Carol Gutierrez Address: [address] [place] [address], [address] [place] [id number] Business (1) When:Within 3 Day(s) [facility]07-08-2023 Evaluation + Plan noteExtracted from: Title:ED Note Author:Anton Waldrop PA-C te:04/14/23 Wrist sprain (S63.509A: Unsp ecified sprain of unspecified wrist, initial encounter) Orders: XR Wrist 3+ Views Left [facility]02-02-2023 NoteOP Note OPERATION DATE: 11/09/2022 PROCEDURE: Bilateral laparoscopic salpingectomy. PREOPERATIVE DIAGNOSIS: Multiparity, request for sterilization. POSTOPERATIVE DIAGNOSIS: Multiparity, request for sterilization. ANESTHESIA: General. SURGEON: Mark Rosales D.O. HAND MITER OPERATOR: JAMES Sheets URINE OUTPUT: Yellow and clear. [...] lap and needle counts were correct x2.[facility] 11-09-2022 NoteOPERATIVE NOTE OPERATION DATE: 12/02/2022 PROCEDURE: Bilateral laparoscopic salpingectomy. PREOPERATIVE DIAGNOSIS: Multiparity, request for sterilization. POSTOPERATIVE DIAGNOSIS: Multiparity, request for sterilization. ANESTHESIA: General. SURGEON: Mark Rosales D.O. HAND MITER OPERATOR: JAMES Sheets URINE OUTPUT: Yellow and clear. [...] lap and needle counts were correct x2.[facility] 09-18-2022 NoteDISCHARGE SUMMARY DISCHARGE DATE: 10/02/2022 PRIMARY [...] pain free and no longer on narcotics.[facility] [id number] NoteDISCHARGE DATE: 09/20/2022 PRIMARY DIAGNOSES: 1. Intrauterine [...] pain free and no longer on narcotics.[facility] [id number] NoteOPERATIVE NOTE OPERATION DATE: 09/18/2022 PROCEDURE: Repeat low transverse section. PREOPERATIVE DIAGNOSIS: 1. Intrauterine at 39 weeks. 2. Morbid obesity. 3. Previous . POSTOPERATIVE DIAGNOSIS: 1. Intrauterine at 39 weeks. 2. Morbid obesity. 3. Previous . ANESTHESIA: Spinal with Duramorph. SURGEON: Mark Rosales D.O. HAND MITER OPERATOR: JAMES URINE OUTPUT: Yellow and clear. BLOOD LOSS: 575 mL. FINDINGS: Viable infant. Apgars 8 at 1, 9 at 5. [...] patient's uterus and extended laterally digitally. The infant was then delivered atraumatically after the bladder blade was removed in the cephalic position. The cord was clamped and cut. Cord blood was obtained. The infant was handed off to awaiting team. The [...] to the Recovery Room in stable condition.[facility] [id number] Evaluation + Plan noteExtracted from: Title:ED Note [...] Future Scheduled Tests Laboratory* Rapid COVID Antigen ([facility]) 01/03/22 [facility]07-30-2022 Hospital Discharge instructions Patient Education 05/06/2022 02:32:57 Urinary Tract Infection, Adult, Kbvq-tr-Rumu Urinary Tract Infection, Adult A urinary tract [...] Follow these instructions at home: Medicines Take nzfs-sbq-jofwxxi and prescription medicines only as told by [...] 03/12/2009 Document Revised: 09/11/2019 Document Reviewed: 04/03/2019 [employer] Patient Education 2020 [employer]. 05/06/2022 02:32:57 Abdominal Pain During , Jytd-wi-Kwly Abdominal Pain During Belly (abdominal) pain is [...] keep your pee (urine) pale yellow. Take ljdq-lml-svhkodd and prescription medicines only as told by [...] 09/12/2010 Document Revised: 01/12/2020 Document Reviewed: 12/27/2017 [employer] Patient Education 2020 [employer]. Follow Up Care 05/06/2022 00:57:48 With:Shanique Roman Address: [address] [place] [id number] When:05/09/2022 Comments:Take the antibiotics as prescribed you have completed the course. You can use the nausea medicationevery 6 hours as needed for nausea and vomiting. Take the Pepcid daily for the next 10 days. Pleasefollow-up with your PLAQUE MAKER and primary care doctor in the next 2 to 3 days for reevaluation. Pleasereturn the ED for any new or worsening symptoms. [facility] Diagnosis Calculus of gallbladder without cholecystitis without obstruction- Primary Calculus of gallbladder without mention of cholecystitis or obstruction [facility] this [facility] Diagnosis Onset Date Resolution Status BMI 50.0-59.9, adult acute QASIM (generalized anxiety disorder) acute MDD (major depressive disorder) acute Obesity, morbid, BMI 50 or higher acute [facility] Work Phone: Evaluation note* Diagnosis Onset Date Resolution Status BMI 50.0-59.9, adult acute QASIM (generalized anxiety disorder) acute MDD (major depressive disorder) acute Obesity, morbid, BMI 50 or higher acute BMI 50.0-59.9, adult acute QASIM (generalized anxiety disorder) acute MDD (major depressive disorder) acute Obesity, morbid, BMI 50 or higher acute [facility] Work Phone: Evaluation note* Diagnosis Onset Date Resolution Status Knee pain, left noneactive [facility] Work Phone: Evaluation note* Diagnosis Onset Date Resolution Status Left knee sprain noneactive Knee pain, left noneactive [facility] Work Phone: Hospital course Narrative No data available for this section [facility]* Attachments The following attachments cannot be sent through Care Everywhere. * Gallstones (Belgian) [facility] No data available for this section [facility] No data available for this section [facility] Summary Purpose Family History Relationship Condition Age at Onset Recorded Date/T [...] Polyp of corpus uteri Unknown Advance Directives Latest Code Status on File Code Status [...] ized section and content) DATE CREATED AUTHOR 04/28/2019 [facility] DATE CREATED AUTHOR AUTHOR'S ORGANIZ ATION 12/14/2022 [facility] DATE CREATED AUTHOR AUTHOR'S ORGANIZ ATION 05/31/2023 [facility] DATE CREATED AUTHOR AUTHOR'S ORGANIZ ATION 02/28/2024 [facility] DATE CREATED AUTHOR AUTHOR'S ORGANIZ ATION 06/12/2024 [facility] DATE CREATED AUTHOR AUTHOR'S ORGANIZ ATION 11/24/2024 [facility] DATE CREATED AUTHOR AUTHOR'S ORGANIZ ATION 11/26/2024 [facility] DATE CREATED AUTHOR AUTHOR'S ORGANIZ ATION 02/11/2025 [facility] Care Team (unrecognized sect ion and content) [employer] Supervisor Relationship Specialty Start Date End Date Mirza Mcmullen APRN - CNP PCP - General Family Medicine 11/28/17 [employer] Supervisor Relationship Specialty Start Date End Date Mirza [...] 1959 2016 (Given - Provid er: Christal Cortez RN) morphine sulfate (PF) injection 4 mg (COMPLETED) [...] 1958 2015 (Given - Provid er: Christal Cortez RN) sodium chloride 0.9 % bolus 1,000 mL [...] BE BASED ON THE PRIMARY CLINICAL RECORDS. [facility] [employer] [facility]. provides no warranty or guarantee of the accuracy or completeness of information in this document.
== END 2025-03-05 20:36 | disposition home or self-care (01) ==
LOC: LAB 20:35
PROVIDERS: PCP Family Medicine; Visit Provider Obstetrics & Gynecology
DX: Z01.419 Encounter for gynecological examination (general) (routine) without abnormal findings (principal)
CPT/HCPCS: 87624; 88175

== ENCOUNTER 2025-07-28 13:06 | Outpatient (REF) | payer BC, SELFPAY | END 2025-07-28 13:07 | disposition home or self-care (01) | LOC: LAB 13:06 | PROVIDERS: PCP Family Medicine; Visit Provider Obstetrics & Gynecology | DX: N92.0 Excessive and frequent menstruation with regular cycle (principal) | CPT/HCPCS: 88305 ==

== ENCOUNTER 2025-08-11 12:29 | Outpatient (OUT) | payer BC, SELFPAY ==
--- OUTSIDE RECORDS SUMMARY | 2025-07-28 08:30 | XMS_ITS | Encounter Summary ---
Author Organization [facility] Address [address] [facility] [place] [address] Care Team Providers Care Hotel Or Motel Receptionist Name Role Phone Unavailable Primary Care Provider Unavailabl e Reason for Visit * ReasonCommentsEndometrial BiopsyMenorrhagia Encounter Details DateTypeDepartmentCare Team (Latest Contact Info)Odrnbgzcdnq94/21/2025 9:30 AM EDTProcedure Visit [facility] [address] [place] [phone] Mark Rosales, [address] [place] [address] Pre-op examination; Menorrhagia with regular cycle; Abnormal uterine bleeding; Pelvic pain in female; Cyst of right ovary Social History Tobacco UseTypesPacks/DayYears UsedDateSmoking Tobacco: NeverSmokeless Tobacco: NeverAlcohol UseStandard Drinks/WeekCommentsNever0 (1 standard drink = 0.6 oz pure alcohol)CommentsNoSex and Gender InformationValueDate RecordedSex Assigned at BirthNot on fileLegal MlhSazdvp46/15/2023 11:00 PM EDTGender IdentityNot on fileSexual OrientationNot on filedocumented as of this encounter Last Filed Vital Signs Vital SignReadingTime TakenCommentsBlood Ogntklmj011/801 9:58 AM EDT Pulse--Temperature--Respiratory Rate--Oxygen Saturation--Inhaled Oxygen Concentration--Pntlxt960 kg (266 lb)07/28/2025 9:58 AM IXJVmaboi304.9 cm (5' 1 ) 07/28/2025 9:58 AM EDTBody Mass Index50.261 9:58 AM EDTdocumented in this encounter Progress Notes * Leta Kapadia - 07/28/2025 9:30 AM EDT Reason for Appointment: Patient ID: Cathi Acuna is a 30 y.o. female who presents for Endometrial Biopsy and Menorrhagia Patient presents today for Pre Op/Endometrial Biopsy appointment. Patient is scheduled to undergo Diagnostic Laparoscopy, possible ED, possible FOE, possible BSO and Endometrial Ablation with Julisa on 08/21/[address] Rosales at [facility]. MEDICATIONS Current Outpatient Medications Medication Instructions metFORMIN XR (GLUCOPHAGE-XR) 1,000 mg, Oral, Daily with evening meal, Do not crush, chew, or split. phentermine (ADIPEX-P) 37.5 mg, Oral, Daily before breakfast ALLERGIES Allergies Allergen Reactions Amoxicillin Hives and Rash Penicillins Hives and Rash Other Reaction(s): Unknown PROBLEMS Active Ambulatory Problems Diagnosis Date Noted No Active Ambulatory Problems Resolved Ambulatory Problems Diagnosis Date Noted STD exposure 03/16/2023 Past Medical History: Diagnosis Date Anxiety BV (bacterial vaginosis) Depression S/P section Syncope Vaginal discharge HISTORY PAST MEDICAL HISTORY SOCIAL HISTORY Past Medical History: Diagnosis Date Anxiety BV (bacterial vaginosis) Depression S/P section STD exposure Syncope Vaginal discharge Social History Tobacco Use Smoking status: Never Smokeless tobacco: Never Substance Use Topics Alcohol use: Never Drug use: Never FAMILY HISTORY Family History Problem Relation Name Age of Onset Cancer Mother Cancer Other Grandma Diabetes Other Grandparents SURGICAL HISTORY Past Surgical History: Procedure Laterality Date APPENDECTOMY 2011 SECTION, CLASSIC 07/22/2021 X2 CHOLECYSTECTOMY COLONOSCOPY 2020 DILATION AND CURETTAGE 2018 TUBAL LIGATION Bilateral 2022 REVIEW OF SYSTEMS Review of Systems: Review of Systems Constitutional: Negative. HENT: Negative. Eyes: Negative. Respiratory: Negative. Cardiovascular: Negative. Gastrointestinal: Negative. Genitourinary: Positive for menstrual problem and pelvic pain. Musculoskeletal: Negative. Skin: Negative. Neurological: Negative. All other systems reviewed and are negative. Hematological: Negative. Endocrine: Negative. Allergic/Immunologic: Negative. OBJECTIVE Objective: Physical Exam Constitutional: Appearance: Normal appearance. She is well-developed. Genitourinary: Vulva normal. Cardiovascular: Rate and Rhythm: Normal rate and regular rhythm. Pulmonary: Effort: Pulmonary effort is normal. Breath sounds: Normal breath sounds. Abdominal: General: Bowel sounds are normal. There is no distension. Palpations: Abdomen is soft. Tenderness: There is no abdominal tenderness. There is no guarding or rebound. Musculoskeletal: General: No swelling. Normal range of motion. Right lower leg: No edema. Left lower leg: No edema. Neurological: Mental Status: She is alert and oriented to person, place, and time. Skin: General: Skin is warm and dry. Psychiatric: Mood and Affect: Mood normal. Behavior: Behavior normal. Vitals and nursing note reviewed. Exam conducted with a electrical technician instructor present. Vitals: Estimated body mass index is 49.88 kg/m?? as calculated from the following: Height as of 06/17/25: 5' 1 . Weight as of 06/17/25: 264 lb. BP: No LMP recorded. ASSESSMENT & PLAN ICD-10-CM 1. Pre-op examination Z01.818 2. Menorrhagia with regular cycle N92.0 Endometrial biopsy POCT , urine manually resulted 3. Abnormal uterine bleeding N93.9 4. Pelvic pain in female R10.20 Endometrial biopsy POCT , urine manually resulted 5. Cyst of right ovary N83.201 Pre Op: Patient is doing well but has complaints of bleeding and pelvic pain due to menorrhagia and right ovarian cyst found on ultrasound. Patient has tried hormone therapy in the past but all attempts to subside patients issues have failed. I have discussed conservative management vs. surgical managementwith the patient in detail and patient desires surgical management at this time. Patient will undergo Diagnostic Laparoscopy, possible ED, possible FOE, possible BSO and Endometrial Ablation with Julisa on 08/21/2025. Surgical consents were signed, mmc was reviewed, and patient is to proceed to [facility] OR. EMBX: Patient was placed in dorsal lithotomy position with feet in stirrups. A sterile speculum was placed into the vagina and the cervix was visualized. The cervix was grasped with a single tooth tenaculum. The endometrial pipette was placed through the cervix into the uterus, endometrial curettage was performed and sampling was obtained, endometrial curettings were placed in formalin, and single tooth tenaculum was removed. Excellent hemostasis was assured. All instruments were removed from vagina. Follow Up: Patient is to follow up between 1-2 weeks post op to assess proper healing and recovery from procedure. Documented by Edith Vincent LPN on behalf of: Mark Rosales DO documented in this encounter Plan of Treatment DateTypeDepartmentCare Team (Latest Contact Info)Opumsvqgotw36/01/2026 2:00 PM EDTOffice Visit [facility] [address] [place] [address] Mark Rosales DO [address] [place] [address] NameTypePriorityAssociated DiagnosesOrder ScheduleEndometrial biopsyProcedures Routine Menorrhagia with regular cycle Pelvic pain in female Ordered: 07/28/2025documented as of this encounter Procedures Procedure NamePriorityDate/TimeAssociated DiagnosisCommentsPOCT , URINE Ysxcijs4107/28/2025 10:00 AM EDT Menorrhagia with regular cycle Pelvic pain in female documented in this encounter Results * POCT , urine manually resulted (07/28/2025 10:00 AM EDT)Component ValueRef RangeTest MethodAnalysis TimePerformed AtPathologist SignaturePreg Test, UrNegativeNegativeSpecimen (Source)Anatomical Location / Laterality Collection Method / VolumeCollection TimeReceived CqgfTfygg55/21/2025 10:00 AM EDT Narrative Authorizing ProviderResult TypeResult StatusCorejose alejandro Rosales DOPOINT OF CARE TEST ENTER/EDIT ORDERABLESFinal Result documented in this encounter Visit Diagnoses Diagnosis Pre-op examination Menorrhagia with regular cycle Abnormal uterine bleeding Unspecified disorder of menstruation and other abnormal bleeding from female genital tract Pelvic pain in female Unspecified symptom associated with female genital organs Cyst of right ovary Other and unspecified ovarian cyst documented in this encounter
--- OUTSIDE RECORDS SUMMARY | 2025-07-29 19:37 | XMS_ITS | Continuity of Care Document ---
Author Organization [facility] Address [address] [place] [address] Phone Care Team Providers Care Accountant Assistant Name Role Phone Mark Rosales DO Attending Provider [phone] Care Teams Visit Care Team Team Status: Inactive Member Role/Relationship Status Dates Mark Rosales DO Attending Provider Active Start : July 28, 2025 End: July 28, 2025 Chief Complaint and Reason for Visit Chief Complaint Admit Date Unknown July 28, 2025 9 :00am Allergies, Adverse Reactions, Alerts Allergen Type Severity Reaction Last Updated Verified Status amoxicillin Allergy Unknown Rash February 28, 2025 9:08am Yes Active Penicillins Allergy Unknown Rash February 28, 2025 9:08am Yes Active Social History Smoking Status Status Start Date End Date Date of Observa tion Never smoked tobacco (finding) February 28, 2025 9:46am Observation Status Observation Response Date of Response Legal Sex Female (finding) [facility] 1994 Family History Relationship Condition Age at Onset Recorded Date/T arturo Not Specified Diabetes mellitus Unknown High blood cholesterolUnknownHeart diseaseUnknownMyocardial infarctionUnknown Malignant neoplasmUnknownCerebrovascular accident (CVA)UnknownmotherPolyp of corpus uteriUnknown Problems Active Problems Problem Diagnosis/Recorded Date Onset Date Stat MDD (major depressive disorder) December 04, 2023 3: 18pm Unknown Active QASIM (generalized anxiety disorder) December 04, 2023 3:10pm Unknown Active BMI 50.0-59.9, adult December 04, 2023 3:18pm Unknow n Active Obesity, morbid, BMI 50 or higher December 04, 2023 3:19pm Unknown Active Inactive/Resolved Problems Problem Diagnosis/Recorded Date Onset Date Stat us Hemorrhoids February 28, 2025 10:56am Unknown Resol alexia Medications Medication Status Dose Units Route Directions Qty Days Refills S tart Date Stop Date End Date Reason(s) Instructions Adherence Citalopram (Celexa) 20 mg Tablet Discontinued 20 MG PO Daily September 04, 2018 1:00amFebruary 2023 2:39pmPsyllium Husk (Metamucil) 0.4 gram capsuleActive0.2ORJPUxfyn99490Scp 2024 12:00amUnknownPramoxine (Proctofoam) 1 % bvfoKmovir3ALELXCJXGxmvx9779Zdf 2024 12:00amUnknown Tezktzheu-Wtwtjgtkzckuiz-Moag 2.8-0.55 % fhjFaxqfy5UIXKKBMUVpufe daily as needed for rectal xexuhikivp60748Kua 2024 12:00amUnknownSertraline 25 mg tablet Vtabsxrivuzq77APYTWmnje26090Qitsoxpd 2023 1:00amSeptember 2023 9:44am Naproxen 500 mg vzepogCbhnoq110NZBBLxhwm daily as needed for ufcq019Dhaichphz 2023 12:00amUnknown Advance Directives Advance Directive Response Recorded Date/ Time Advance Directives No August 4:32pm Insurance Providers Guarantor Cindi Dodd Address [address] [place] [id number] Info.Home Phone: Payer Group Member ID Coverage Type Subscriber Relationship to Subscriber Effective Date Expiration Date O [id number] Alcazar JR [address] [facility] [id number] Home Phone: [facility] [employer] [address] [address] [facility] [address] Work Phone: Id: [id number] Summers , D JR Id: [id number] [address] [place] [phone] Home Phone: C Encounters Encounter Location(s) Arrival/Admit Date Discharge/Departure Date Discharge/Departure Disposition Provider(s) Departed Referred -[facility] July 28, 2025 9:00am July 28, 2025 9:01am Discharged to home care or self care (routine discharge) Mark Rosales
--- OUTSIDE RECORDS SUMMARY | 2025-08-11 12:33 | XMS_ITS | Clinical Summary ---
Author Organization [facility] Address [address] [place] [address] Phone Care Team Providers Care Web Developer Name Role Phone Pete Lao DO Primary Care Provider Social History Tobacco UseTypesPacks/DayYears UsedDateSmoking Tobacco: Never Assessed CommentsUnknownSex and Gender InformationValueDate RecordedSex Assigned at Not on fileLegal FysVkhckl81/26/2022 1:04 PM ESTGender IdentityNot on fileSexual OrientationNot on file Plan of Treatment Not on file Care Teams Team MemberRelationshipSpecialtyStart DateEnd Date Pete Lao, [address] [facility] [address] [place] [address] PCP - Jzhibky54/2/10
--- OUTSIDE RECORDS SUMMARY | 2025-08-11 12:33 | XMS_ITS | Clinical Summary ---
Author Organization [facility] Address [address] [place] [address] Care Team Providers Care Dishwashing Machine Repairer Name Role Phone Unavailable Primary Care Provider Unavailabl e Allergies Active AllergyReactionsCriticalityNoted DateCommentsAmoxicillinHives,RashLow 3PenicillinsHives,ZzvjGbp2306/30/2014 Other Reaction(s): Unknown Medications MedicationSigDispense QuantityRefillsLast FilledStart DateEnd DateStatus metFORMIN XR (Glucophage-XR) 500 MG 24 hr tablet Indications:Encounter for weight managementTake 2 tablets (1,000 mg) by mouth in the evening. Take with meals Do not crush, chew, or split. 30 tablet 1105Active phentermine (Adipex-P) 37.5 MG tablet Indications:Encounter for weight managementTake 1 tablet (37.5 mg) by mouth in the morning. Take before meals. 30 tablet 5Active Resolved Problems ProblemNoted DateDiagnosed DateResolved DateSTD tmdzqkyv05/06/2023 Encounters DateTypeDepartmentCare GygeLmgrkdxlegw44/24/2025bstract [facility] [address] [place] [address] [place] [address] Catie Lala MA 07/28/2025 9:30 AM EDTProcedure Visit [facility] [address] [place], [place] [address] [address] Mark Rosales DO Pre-op examination; Menorrhagia with regular cycle; Abnormal uterine bleeding; Pelvic pain in female; Cyst of right ovary06/17/2025 1:00 PM EDTOffice Visit [facility] [address] [place] [address] Megha Shaw PA Weight gain; Encounter to discuss test results; Encounter for weight tmsnerrbgm78/10/2025amboo flowsheet [facility] [address] [place] [address] Megha Shaw PA 06/09/2025 1:00 PM EDTAncillary Procedure [facility] [address] [place] [address] Pelvic pain in female; Encounter for management of menstrual issue05/21/2025 10:20 AM EDTOffice Visit [facility]OM[facility] [address] [place] [address] Mark Rosales DO Hospital discharge follow-up; Cyst of right ovary; Pelvic pain in female; Encounter for management of menstrual issue; Encounter for weight ltqtjoxvls77/14/2025amboo flowsheet [facility] [address] [place] [address] Mark Rosales DO from Last 3 Months Family History Medical HistoryRelationNameCommentsCancerMotherCancerOtherGrandmaDiabetesOther GrandparentsRelationNameStatusCommentsMotherOther Social History Tobacco UseTypesPacks/DayYears UsedDateSmoking Tobacco: NeverSmokeless Tobacco: Never Tobacco Cessation:Counseling Given: Not Answered Alcohol UseStandard Drinks/WeekCommentsNever0 (1 standard drink = 0.6 oz pure alcohol)CommentsNoSex and Gender InformationValueDate RecordedSex Assigned at BirthNot on fileLegal EdiAcnptr57/15/2023 11:00 PM EDTGender IdentityNot on fileSexual OrientationNot on file Last Filed Vital Signs Vital SignReadingTime TakenCommentsBlood Lfnpkoqe140/801 9:58 AM EDT Pulse--Temperature--Respiratory Rate--Oxygen Saturation--Inhaled Oxygen Concentration--Inekhy912 kg (266 lb)07/28/2025 9:58 AM LRKGkcecw859.9 cm (5' 1 ) 07/28/2025 9:58 AM EDTBody Mass Index50.261 9:58 AM EDT Plan of Treatment DateTypeDepartmentCare Team (Latest Contact Info)Asruvkwurdd28/01/2026 2:00 PM EDTOffice Visit [facility] [address] [place] [address] Mark Rosales, DO [address] [facility] [place] [address] Procedures Procedure NamePriorityDate/TimeAssociated DiagnosisCommentsPOCT , URINE Hvklrzb1707/28/2025 10:00 AM EDT Menorrhagia with regular cycle Pelvic pain in female US PELVIC COMPLETE W/ TVSpkatkq58/02/2025 1:22 PM EDT Pelvic pain in female Encounter for management of menstrual issue from Last 3 Months Results * POCT , urine manually resulted (07/28/2025 10:00 AM EDT)Component ValueRef RangeTest MethodAnalysis TimePerformed AtPathologist SignaturePreg Test, UrNegativeNegativeSpecimen (Source)Anatomical Location / Laterality Collection Method / VolumeCollection TimeReceived OrxzBpetk54/21/2025 10:00 AM EDT Narrative Authorizing ProviderResult TypeResult StatusCorey Connei DOPOINT OF CARE TEST ENTER/EDIT ORDERABLESFinal Result * US Pelvis w/ TV (06/09/2025 1:22 PM EDT)Anatomical RegionLateralityModality PelvisUltrasoundSpecimen (Source)Anatomical Location / LateralityCollection Method / VolumeCollection TimeReceived Time06/09/2025 1:31 PM EDT Impressions 06/09/2025 1:44 PM EDT Uterine findings consistent with a 2-3 cm intramural fibroid TRANSCRIBED BY: ? ELECTRONICALLY SIGNED BY: Tk Valdez MD Narrative 06/09/2025 1:44 PM EDT FINDINGS: Uterus ?9.4 x 4.9 x 6.7 cm Endometrium ? 10 mm Right ovary ? 3.4 x 2.5 x 2.3 cm (volume 10 cc) Left ovary ? 2.5 x 2.0 x 1.7 cm (volume 4.5 cc) Heterogeneous area anterior uterine body, 2.8 x 2.6 x 2.0 cm consistent with an intramural fibroid.??Normal appearing endometrium Normal ovaries. ??No pelvic fluid. Procedure Note Tk Valdez MD - 06/09/2025 FINDINGS: Uterus 9.4 x 4.9 x 6.7 cm Endometrium 10 mm Right ovary 3.4 x 2.5 x 2.3 cm (volume 10 cc) Left ovary 2.5 x 2.0 x 1.7 cm (volume 4.5 cc) Heterogeneous area anterior uterine body, 2.8 x 2.6 x 2.0 cm consistentwith an intramural fibroid. Normal appearing endometrium Normal ovaries. No pelvic fluid. IMPRESSION: Uterine findings consistent with a 2-3 cm intramural fibroid TRANSCRIBED BY: ELECTRONICALLY SIGNED BY: Tk Valdez MD Authorizing ProviderResult TypeResult StatusCorey Connie DOIMG PROCEDURESFinal Result from Last 3 Months Insurance
--- OUTSIDE RECORDS SUMMARY | 2025-08-11 12:33 | XMS_ITS | Encounter Summary ---
Author Organization [facility] Address [address] [facility] [place] [address] Care Team Providers Care Storage Wharfage Clerk Name Role Phone Unavailable Primary Care Provider Unavailabl e Encounter Details DateTypeDepartmentCare Team (Latest Contact Info)Smvblmylbce98/24/2025bstract [facility] [address] [place] [address] Catie Lala MA Social History Tobacco UseTypesPacks/DayYears UsedDateSmoking Tobacco: NeverSmokeless Tobacco: NeverAlcohol UseStandard Drinks/WeekCommentsNever0 (1 standard drink = 0.6 oz pure alcohol)CommentsNoSex and Gender InformationValueDate RecordedSex Assigned at BirthNot on fileLegal JggIcvcdh85/15/2023 11:00 PM EDTGender IdentityNot on fileSexual OrientationNot on filedocumented as of this encounter Plan of Treatment DateTypeDepartmentCare Team (Latest Contact Info)Tcqgrnvrkjq36/01/2026 2:00 PM EDTOffice Visit [facility] [address] [place] [address] Mark Rosales DO [address] [place], [place] [id number] documented as of this encounter Visit Diagnoses Not on filedocumented in this encounter
--- OUTSIDE RECORDS SUMMARY | 2025-08-11 12:36 | XMS_ITS | CCD ---
Author Organization [facility] Team Providers Care Community Organizer Name Role Phone Shanique Roman Primary Care [...] SARABIA Attending Unavailable EUSEBIO SARABIA Admitting Unavailable [employer], DR KIRSTEN Alvarado Consulting Unavailable CONNIE ., DR MAGAÑA Consulting Unavailable EUSEBIO SARABIA Consulting Unavailable TRIANA, LEA Consulting Unavailable REQUEST, DR NONE LISTED Primary Care Unavaila ble CONNIE ., DR MAGAÑA Attending Unavailable CONNIE ., DR MAGAÑA Admitting Unavailable CONNIE ., DR MAGAÑA Consulting Unavailable CONNIE ., DR MAGAÑA Attending Unavailable CONNIE ., DR MAGAÑA Admitting Unavailable REQUEST, NONE LISTED Primary Care Unavaila ble EMILIANO [...] Consulting Unavailable TRINH, CARRINGTON Consulting Unavailable GEMBUS, LINWOOD Consulting Unavailable CONNIE ., DR MAGAÑA Admitting [...] Unavailable Carol Gutierrez Primary Care Physician Elías VILLAGOMEZ - Mirza ALCANTARA Primary Care Provider [phone] ELIZABETH CRUZ Primary Care Physician AUTUMN Cruz Primary Care Provider AUTUMN Cruz Attending Provider AUTUMN Cruz Primary Care Provider DAHLIA Alvarado Attending Provider [phone] Debra Juan Attending Unavailable Unavailable Primary Care Provider Unavailmaggie Myers DO, Bailee Butt Primary Care Provider Kentrell King DO Emergency Provider Unavacely Myers DO, Bailee Butt Primary Care Provider JANINE FUNEZ Admitting Unavailable JANINE FUNEZ Attending Unavailable MIRZA MCMULLEN Primary Care Unavailable JANINE FUNEZ Attending Unavailable JANINE FUNEZ Referring Unavailable BAILEE MYERS Primary Care Unavailable Drake, Debra H Attending Unavailable MARK ROSALES Attending Unavailable MEGHA SHAW Attending Unavailable MARK ROSALES Referring Unavailable MARK ROSALES Attending Unavailable MARK ROSALES Attending Unavailable Mark Rosales DO Attending Provider [phone] Kentrell King Admitting Unavailable Kentrell King Attending Unavailable Bailee Myers Primary Care Unavailable Mark Rosales Admitting Unavailable Mark Rosales Attending Unavailable Allergies Allergy ClassificationReported Allergen(s)Allergy TypeDate of OnsetReaction(s) Facility (20 sources)Amoxicillin; Translations: [amoxicillin]Drug Eskeyxz69-44-4679[facility] (20 sources)Penicillins; Translations: [penicillins]Drug lxrgaiz84-25-8967[facility] ([facility] source)AmoxicillinDrug AllergyThe [facility] (1 source)PenicillinDrug AllergyC[facility] Rep[facility] (1 source)AmoxicillinDrug Bcepmfo57-08-7187EscztmqtlSelect Medical [facility] Medications Current Medications MedicationDrug Class(es)DatesSig (Normalized)Sig (Original)acetaminophen 500 mg oral tablet (2 sources)take 1 tablet by mouth every six hours as needed for pain acetaminophen (TYLENOL) 500 MG tablet Take 1 tablet by mouth every 6 hours as needed for Pain 0 Activeazithromycin 500 mg oral tablet (2 sources)Macrolide AntimicrobialStart: 12-19-2023 End: 00-29-8050qhjn 1 tablet by mouth once dailyZithromax 500 mg oral tablet 500 mg = 1 tab(s), Oral, Daily, X 5 day(s), # 5 tab(s), Refills(s) 0, Pharmacy: [facility]/pharmacy #[id number], 155, cm, 12/19/23 12:54:00 EDT, Height/Length Dosing, 127.3, kg, 12/19/23 12:54:00 EDT, Weight Dosing Start Date: 12/19/23 Stop Date: 12/24/23 Status: Orderedcephalexin 500 mg oral capsule (1 source)Cephalosporin AntibacterialStart: 05-06-2022 End: 35-97-6688ovvd 1 capsule by mouth three times dailyKeflex 500 mg Cap 500 mg = 1 cap(s), Oral, TID, X 5 day(s), # 15 cap(s), Refills(s) 0 Start Date: Stop Date: 05/11/22 Status: Ordereddicyclomine hydrochloride 20 mg oral tablet (2 sources)AnticholinergicStart: 77-16-5781fdgv 1 tablet by mouth four times daily as needed for paindicyclomine (BENTYL) 20 MG tablet Take 1 tablet by mouth 4 times daily as needed (abdominal pain) 20 tablet 0 05/18/2023 Active doxycycline hyclate 100 mg oral capsule (4 sources)Tetracycline-class DrugStart: 03-05-2025 End: 80-40-9911cmlj 1 capsule by mouth in the morningdoxycycline (Vibramycin) 100 MG capsule Indications: Pain in female genitalia on intercourse Take 1 capsule (100 mg) by mouth in the morning and 1 capsule (100 mg) before bedtime. Do all this for 14 days. 28 capsule 03/05/2025 03/19/2025 Activefamotidine 20 mg oral tablet (2 sources)Histamine-2 Receptor AntagonistStart: 72-46-4596kbqr 1 tablet by mouth once dailyPepcid 20 mg Tab 20 mg = 1 tab(s), Oral, Daily, # 14 tab(s), Refills(s) 0 Start Date: 05/06/22 Status: Orderedhydrocortisone acetate 25 mg rectal suppository (2 sources)CorticosteroidStart: 93-25-6770ltokvmtkkrmcya (ANUSOL-HC) 25 MG suppository Indications: Blood in stool Place 1 suppository rectally in the morning and 1 suppository in the evening. 24 suppository 1 02/06/2025 Active hydrocortisone acetate 0.0055 mg/mg / lidocaine hydrochloride 0.028 mg/mg rectal gel (2 sources)Antiarrhythmic, Corticosteroid, Amide Local AnestheticStart: 44-10-8399nmcayjjad 800 mg oral tablet (2 sources)Nonsteroidal Anti-inflammatory DrugStart: 48-63-9439vlhp 1 tablet by mouth every eight hours as needed for painibuprofen (ADVIL;MOTRIN) 800 MG tablet Take 1 tablet by mouth every 8 hours as needed for Pain 120 tablet 3 03/20/2018 Mmfjzt06 hr metFORMIN hydrochloride 500 mg extended release oral tablet (8 sources)BiguanideStart: 06-17-2025 End: 60-29-6733pqmz 2 tablets by mouth every twenty-four hours at mealtime metFORMIN XR (Glucophage-XR) 500 MG 24 hr tablet Indications: Encounter for weight management Take 2 tablets (1,000 mg) by mouth in the evening. Take with meals Do not crush, chew, or split. 30 tablet 11 06/17/2025 ActiveStart: 05-21-2025 End: 56-48-6041kxip 1 tablet by mouth every twenty-four hours at mealtime metFORMIN XR (Glucophage-XR) 500 MG 24 hr tablet Indications: Encounter for weight management Take 1 tablet (500 mg) by mouth in the evening. Take with meals Do not crush, chew, or split. 30 tablet 11 05/21/2025 06/17/2025 Discontinued (Reorder)naloxone 0.4 mg in 10 mL sodium chloride syringe (1 source)Start: 73-84-2795OyxwpSSVaod, PRN, Opioid Reversal, Starting on Casandra 03/19/25 at 1113, PRN if respiratory rate is lessthan 6/min and patient is difficult to arouse then notify physician STAT. Mix 9 mL of sodium chloride 0.9% with 0.4 mg (1 mL) of naloxone (NARCAN) in 10 mL syringe. (Note: dilution is 0.04 mg/mL) Give 0.08 mg (2 mL of special dilution), slow IV push, repeat up to 0.4 mg (10 mL) or until patient is responsive to physical stimulation and respiratory rate is equal to or greater than 6 breaths/min. Continue to observe, if no response within 3 minutes of administration of 0.4 mg (10 mL) total, repeat dose (0.4 mg as administered previously). Concentration 0.04 mg/mL, PACU onlynaproxen 500 mg oral tablet (4 sources)Nonsteroidal Anti-inflammatory DrugStart: 60-55-6044iyvk 1 tablet by mouth twice daily as needed for painStart: 26-35-4042ecxx 1 tablet by mouth twice dailynaproxen 500 mg Tab 500 mg = 1 tab(s), Oral, BID, Take one tab by mouth two times a day, # 14 tab(s), Refills(s) 0, Pharmacy: [facility]/pharmacy #[id number], 155, cm, 04/14/23 13:45:00 EDT, Height/Length Dosing,120, kg, 04/14/23 13:45:00 EDT, Weight Dosing Start Date: 04/14/23 Status: OrderedNo Name (No Known Home Meds) (1 source)Start: 52-28-6348Ir Name (No Known Home Meds) Active June 11, 2024 12:00amphentermine hydrochloride 37.5 mg oral tablet (3 sources)Sympathomimetic Amine AnorecticStart: 06-17-2025 End: 39-37-8975wood 1 tablet by mouth before mealtimephentermine (Adipex-P) 37.5 MG tablet Indications: Encounter for weight management Take 1 tablet (37.5 mg) by mouth in the morning. Take before meals. 30 tablet 06/17/2025 Activepramoxine hydrochloride 10 mg/ml rectal foam (2 sources)Start: 59-71-8351tcqzasRWME 20 mg oral tablet (2 sources)Start: 12-19-2023 End: 24-36-8258ukog 2 tablets by mouth once dailypredniSONE 20 mg Tab 40 mg = 2 tab(s), Oral, Daily, X 5 day(s), # 10 tab(s), Refills(s) 0, Pharmacy: [facility]/pharmacy #[id number], 155, cm, 12/19/23 12:54:00 EDT, Height/Length Dosing, 127.3, kg, 12/19/23 12:54:00 EDT, Weight Dosing Start Date: 12/19/23 Stop Date: 12/24/23 Status: Orderedpsyllium 400 mg oral capsule (1 source)Start: 29-52-2814Ivxxqlmy Husk (Metamucil) 0.4 gram capsule (1 source)Start: 97-36-4413Sxyzquyb Husk (Metamucil) 0.4 gram capsule Active 0.4 GM PO Daily February 28, 2025 12:00am50 ml sodium chloride 9 mg/ml injection (9 sources)Start: 62-73-5911JazrqTMMidu, at 5-250 mL/hr, PRN, if patient receiving piggyback infusions and maintenance fluids are not ordered, Starting on Casandra 03/19/25 at 1113, For piggyback infusion, administer at same rate as p iggyback for a total of 25 mL. Enter 25 mL into dose field and piggyback rate into rate field of order. If piggyback is infusing at a rate less than 100 mL/hr, enter 25 mL into dose field and 100 mL/hr into rate field of order., PACU onlyStart: 03-19-2025 End: 72-30-7853Munbvvud on Casandra 03/19/25 at 0955, For 1 dose, Abigail Laureano: cabinet overrideStart: -40 mL, IntraVENous, EVERY 12 HOURS SCHEDULED (2 times per day), First dose on Casandra 03/19/25 at 1130, Until Discontinued, For Line Patency: Peripheral IV = 5 mL; Midline or Central Line = 10 mL/lumen.If following IV push medication, administer flush at same rate as the IV push. Flush volume is determined by type of infusion therapy being given. For non- viscous solutions use: Peripheral IV = 5 mL Midline or Central Line = 10 mL/lumen For viscous solutions (i.e. blood components, parenteral nutrition, contrast media, or after obtaining blood sample) use: Peripheral IV = 10 mL Midline or CentralLine = 20 mL/lumen, PACU onlyStart: -40 mL, IntraVENous, PRN, Starting on Casandra 03/19/25 at 1113, Until Discontinued, Line Care, After every IV line use, For Line Patency: Peripheral IV = 5 mL; Midline or Central Line = 10 mL/lumen. If following IV push medication, administer flush at same rate as the IV push. Flush volume is determined by type of infusion therapy being given. For non-viscous solutions use: Peripheral IV = 5 mL Midline or Central Line = 10 mL/lumen For viscous solutions (i.e. blood components, parenteral nutrition,contrast media, or after obtaining blood sample) use: Peripheral IV = 10 mL Midline or Central Line= 20 mL/lumen, PACU onlyStart: 05-18-2023 End: 11-44-0368wzzxwa chloride 0.9 % bolus 1,000 mLZofran ODT 4 mg Tab-Dis (1 source)Start: 35-77-4713dxao 1 tablet by mouth every six hours as needed for nauseaZofran ODT 4 mg Tab-Dis 4 mg = 1 tab(s), Oral, q6hr, PRN Nausea/Vomiting, # 12 tab(s), Refills(s) 0, Pharmacy: [facility]/pharmacy #[id number], 155, cm, 11/23/24 3:07:00 EST, Height/Length Dosing, 121.8, kg, 11/23/24 3:07:00 EST, Weight Dosing Start Date: 11/23/24 Status: Ordered Completed/Discontinued Medications MedicationDrug Class(es)DatesSig (Normalized)Sig (Original)aluminum & magnesium hydroxide-simethicone (MAALOX) 30 mL, lidocaine viscous hcl (XYLOCAINE) 5 mL (GI COCKTAIL) (1 source)Start: 05-18-2023 End: 15-08-7459iepjzycu & magnesium hydroxide-simethicone (MAALOX) 30 mL, lidocaine viscous hcl (XYLOCAINE) 5 mL (GI COCKTAIL)citalopram 20 mg oral tablet (9 sources)Serotonin Reuptake InhibitorStart: 10-21-2017 End: 73-04-6708feqm 1 tablet by mouth once dailyCitalopram (Celexa) 20 mg Tablet Discontinued 20 MG PO Daily September 04, 2018 1:00am December 04, 2023 2:39pmetodolac 400 mg oral tablet (2 sources)Nonsteroidal Anti-inflammatory DrugStart: 05-18-2023 End: 79-77-1534yeud 1 tablet by mouth twice dailyetodolac (LODINE) 400 MG tablet Take 1 tablet by mouth 2 times daily 14 tablet 0 05/18/2023 05/24/2023 Discontinued (LIST CLEANUP)famotidine (PEPCID) 20 mg in sodium chloride (PF) 0.9 % 10 mL injection (1 source)Start: 05-18-2023 End: 93-03-1206eupodyvxop (PEPCID) 20 mg in sodium chloride (PF) 0.9 % 10 mL injectionferrous sulfate 325 mg oral tablet (2 sources)Start: 03-13-2018 End: 68-30-1127mdpt 1 tablet by mouth three times daily at mealtimeferrous sulfate (MARK-JADIEL) 325 (65 Fe) MG tablet Take 1 tablet by mouth 3 times daily (with meals)90 tablet 0 03/13/2018 05/24/2023 Discontinued (LIST CLEANUP) iopamidol (ISOVUE-300) 61 % injection 70 mL (1 source)Start: 05-18-2023 End: 06-76-5147ujnbzvmhs (ISOVUE-300) 61 % injection 70 mLiopamidol (ISOVUE-370) 76 % injection 18 mL (1 source)Start: 03-20-2025 End: mL, Other, IMG ONCE PRN, 1 dose, Starting on Sun03/20/25 at 0842, Until Sun03/20/25 at 0946, Otheriopamidol (ISOVUE-370) 76 % injection 75 mL (1 source)Start: 03-20-2025 End: 70-61-0455rqnf 1 dose intravenously once75 mL, IntraVENous, IMG ONCE PRN, 1 dose, Starting on Sun03/20/25 at 0842, Until Sun03/20/25 at 0946, Other1 ml ketorolac tromethamine 30 mg/ml cartridge (1 source)Nonsteroidal Anti-inflammatory Drug, Cyclooxygenase InhibitorStart: 05-18-2023 End: 57-56-9583slmhmacpk (TORADOL) injection 30 mg1 ml morphine sulfate 4 mg/ml injection (1 source)Opioid AgonistStart: 05-18-2023 End: 11-76-8308ybqshxbz sulfate (PF) injection 4 mg2 ml ondansetron 2 mg/ml injection (5 sources)Serotonin-3 Receptor AntagonistStart: 05-18-2023 End: 46-01-3155wantghsgjej (ZOFRAN) injection 4 mgStart: 05-18-2023 End: 75-51-3502qrvl 1 tablet by mouth three times daily as needed for nausea ondansetron (ZOFRAN-ODT) 4 MG disintegrating tablet Take 1 tablet by mouth 3 times daily as needed for Nausea or Vomiting 21 tablet 0 05/18/2023 05/24/2023 Discontinued (LIST CLEANUP)Start: 97-80-7109dxty 1 tablet by mouth every eight hours as needed for nauseaZofran 4 mg Tab 4 mg = 1 tab(s), Oral, q8hr, PRN Nausea/Vomiting, # 12 tab(s), Refills(s) 0 Start Date: 05/06/22 Status: Ordered sertraline 25 mg oral tablet (6 sources)Serotonin Reuptake InhibitorStart: 12-04-2023 End: 58-21-6724fxew 1 tablet by mouth once dailySertraline 25 mg tablet Discontinued 25 MG PO Daily December 04, 2023 1:00am June 11, 2024 9:44am Problems Active Problems Problem ClassificationProblemDateDocumented DateEpisodic/Chronic Administrative/social admission (6 sources)Patient encounter status; Translations: [Persons encountering health services in other specified circumstances]12-02-2041BuucwxaqMorvzxt disorders (10 sources)Anxiety disorder, unspecified; Translations: [Generalized anxiety disorder]Onset: 701753-18-4712KdfvocrApnzmcxofc associated with dizziness or vertigo (4 sources)Dizziness and giddiness; Translations: [DIZZINESS AND GIDDINESS] Onset: 66-26-7002PaqefctiHzemoxjgoxyap and procreative management (5 sources)Encounter for sterilization; Translations: [ENCOUNTER FOR STERILIZATION]Onset: 80-53-2032XkbzqhesEtsgnndjvwpval and diverticulitis (5 sources)Revjosfexnbqdd78-37-8529KgoryxmFyrxjs infertility (4 sources)Oligo-ovulation; 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]Onset: 731543-53-3421SxxphuzGewbpiby; including migraine (5 sources)Ejuhonea28-68-0379NfdlhqaOphlgunruyr (2 sources)Hemorrhoids; Translations: [Unspecified hemorrhoids]02-28-2025 EpisodicIntestinal infection (5 sources)Clostridium difficile rsmocuil35-68-1128AbssilfhOnqypyt on above: Problem added secondary to positive C-Diff lab result.Menstrual disorders (11 sources)Irregular menstruation, unspecified; Translations: [Oligomenorrhea] Onset: 66-84-9176TopazqvCjsz disorders (14 sources)Depressive disorder; Translations: [Major depressive disorder] 14-34-7882FrxjfowRaqg disorders (1 source)Mood disorders; Translations: [DEPRESSION UNSPECIFIED]Onset: 70-89-3814Hvtbad and vomiting (3 sources)Nausea and vomiting; Translations: [Nausea with vomiting, unspecified]Onset: 49-77-4355JvabyoxiYsvsl aftercare (2 sources)Post-discharge follow-up; Translations: [Encounter for follow-up examination after completed treatment for conditions other than malignant neoplasm]22-50-8267CovzvsouWyefb complications of ; puerperium affecting management of mother (1 source)Obesity complicating childbirth; Translations: [OBESITY COMPLICATING CHILDBIRTH]Onset: 15-31-5180DbnfbgbNmmom complications of ; puerperium affecting management of mother (4 sources)Spinal and epidural anesthesia-induced headache during the puerperium; Translations: [SP EPID ANES-IND H/A DUR PUERPERIUM]Onset: 09-22-2022 EpisodicOther complications of (5 sources)Maternal care for excessive growth, third trimester, not applicable or unspecified; Translations: [MAT CARE EXCSS FTL GRTH 3RD TRI UNS] Onset: 06-01-8497TfqvquvyMftqo female genital disorders (5 sources)Abnormal uterine bleeding; Translations: [Other specified abnormal uterine and vaginal bleeding]13-70-1185FrowfmdBtosx female genital disorders (2 sources)Pain in female genitalia on intercourse; Translations: [Unspecified dyspareunia]79-52-4355MwxwmvzSmlxp female genital disorders (1 source)Pain in female pelvis; Translations: [Pelvic pain in female]07-28-2025 EpisodicOther gastrointestinal disorders (1 source)Diarrhea; Translations: [Diarrhea, unspecified]Onset: 11-23-2024 EpisodicOther nervous system disorders (5 sources)Loss of krnba24-72-3640FqmrmmvzPctmv non-traumatic joint disorders (2 sources)Pain in left knee; Translations: [Pain in joint, lower leg]06-11-2024 EpisodicOther nutritional; endocrine; and metabolic disorders (4 sources)Morbid (severe) obesity due to excess calories; Translations: [Morbid obesity]Onset: 481374-16-6399DrochcgQqycb nutritional; endocrine; and metabolic disorders (11 sources)Morbid obesity; Translations: [Morbid (severe) obesity due to excess calories]Onset: 881677-30-2568KvhnngkXtpnu nutritional; endocrine; and metabolic disorders (6 sources)Body mass index 40+ - severely obese; Translations: [Body mass index (BMI) 50.0-59.9, adult]49-31-1170RqjevslZiirs nutritional; endocrine; and metabolic disorders (3 sources)Body mass index (BMI) 50.0-59.9, adult; Translations: [Body Mass Index 50.0-59.9, adult]09-11-0621XbyutixAwvbw nutritional; endocrine; and metabolic disorders (2 sources)Weight increased; Translations: [Abnormal weight gain]06-17-2025 EpisodicOther and delivery including normal (3 sources)Single live ; Translations: [ state, incidental]Onset: 76-75-3289AmltiamsQzqea upper respiratory disease (1 source)Nasal congestion; Translations: [Nasal congestion]Onset: 12-19-2023 EpisodicOther upper respiratory disease (3 sources)Congestion of nasal hnzvi51-63-5178WakzbjmtPizef upper respiratory infections (9 sources)Acute upper respiratory infection; Translations: [Acute pharyngitis] Onset: 854350-89-8302YxtuxslcEpencu media and related conditions (4 sources)Otitis media; Translations: [Otitis media, unspecified, right ear] Onset: 55-84-6993CoobrabhDozpyud cyst (3 sources)Cyst of right ovary; Translations: [Unspecified ovarian cyst, right side]27-05-2951AgqcgzxqJknzngsj (3 sources)Maternal care for low transverse scar from previous delivery; Translations: [MAT CARE LW TRANS SCAR PREV C/S DEL]Onset: 09-18-2022 EpisodicResidual codes; unclassified (1 source)39 weeks gestation of ; Translations: [39 WEEKS GESTATION OF ]Onset: 29-14-8637VsoncfljJzul and subcutaneous tissue infections (5 sources)Pilonidal zzhr49-98-7581XzkuwucrXgelgtalyqz; intervertebral disc disorders; other back problems (12 sources)Low back pain; Translations: [Lumbar radiculopathy]12-01-2019 EpisodicSprains and strains (2 sources)Sprain of wrist; Translations: [Unspecified sprain of unspecified wrist, initial encounter]Onset: 18-42-3588LxyapnrwEgxoxwv (1 source)Syncope and collapse; Translations: [Syncope and collapse]Onset: 39-18-8074ScxnkgujNebmndwxmeim (1 source)CONTACT W/AND (SUSP) EXPOS COVID-19; Translations: [CONTACT W/AND (SUSP) EXPOS COVID-19]Onset: 94-72-0784Djttlpa tract infections (1 source)Urinary tract infectious disease; Translations: [Urinary tract infection, site not specified]Onset: 26-66-3514Lxrsqkat Past or Other Problems Problem ClassificationProblemDateDocumented DateEpisodic/ChronicAbdominal pain (8 sources)Epigastric pain; Translations: [Epigastric pain]Onset: 05-06-2022 EpisodicBiliary tract disease (4 sources)Cholelithiasis without obstruction; Translations: [Calculus of gallbladder without cholecystitis without obstruction]Onset: 36-69-4841Knyztogr Gastrointestinal hemorrhage (9 sources)Rectal hemorrhage; Translations: [Hemorrhage of anus and rectum] Onset: 005223-44-2897VjrhdhnzEialnouwxvthd and screening for infectious disease (13 sources)Contact with and (suspected) exposure to infections with a predominantly sexual mode of transmission; Translations: [Exposure to sexually transmissible disorder]Onset: 09-02-2022 Resolved: 886770-64-8357HpyqkrohQeots circulatory disease (4 sources)Borderline blood pressure; Translations: [Elevated blood-pressure reading, without diagnosis of hypertension]Onset: 053348-56-7987Faqlfole Other complications of (4 sources)Decreased movements, third trimester, not applicable or unspecified; Translations: [DECR MOVEMENTS 3RD TRI NA/UNS]Onset: 76-38-5124MywrluuuPkyls complications of (1 source)Other specified related conditions, third trimester; Translations: [OTH SPEC PREG RELATEDCOND 3RD TRI]Onset: 77-58-1343AochhqykIwvlz complications of (4 sources)Vomiting of , unspecified; Translations: [VOMITING OF UNSPECIFIED]Onset: 73-25-1957GamuhnwxLvzgp female genital disorders (4 sources)Other specified noninflammatory disorders of vagina; Translations: [OTH SPEC NONINFLAMMATORY D/O VAGINA]Onset: 51-09-4710NwxdyqglAavaj screening for suspected conditions (not mental disorders or infectious disease) (13 sources)Encounter for other screening follow-up; Translations: [Encounter for screening for diabetes mellitus]Onset: 50-33-4233Chjsdwyi Polyhydramnios and other problems of amniotic cavity (4 sources)Other specified disorders of amniotic fluid and membranes, second trimester, not applicable or unspecified; Translations: [OTH D/O AMNIO FL MEMB 2ND TRI UNS]Onset: 38-35-1785CcivdmixPqcaxctq codes; unclassified (1 source)34 weeks gestation of ; Translations: [34 WEEKS GESTATION OF ]Onset: 55-87-2172JulkrrjfWsztstqc codes; unclassified (4 sources)Procedure and treatment not carried out for other reasons; Translations: [PROC AND TX NOT CARRIED OUT OTH REASONS]Onset: 01-38-4129Fkieerho Residual codes; unclassified (1 source)33 weeks gestation of ; Translations: [33 WEEKS GESTATION OF ]Onset: 88-03-2218TpnyupgjMhcpvbyj codes; unclassified (1 source)25 weeks gestation of ; Translations: [25 WEEKS GESTATION OF ]Onset: 15-58-0241AkxtpptmXpzkxvsy codes; unclassified (1 source)14 weeks gestation of ; Translations: [14 WEEKS GESTATION OF ]Onset: 91-53-2523CytgwcytYjousjdx codes; unclassified (2 sources)Pain; Translations: [Pain, unspecified]Onset: 05-28-2023 Resolved: 535984-76-1241RfkdnuhfPwbjrufpy and history of mental health and substance abuse codes (5 sources)Personal history of nicotine dependence; Translations: [Tobacco use and exposure - finding]Onset: 100743-73-2471NrrltapnKfxmbvicteah (2 sources)Patient encounter jetppv40-77-6252 Results Test NameValueInterpretationReference RangeFacilityHCG ( test) Ql (U)on 79-38-8860Vhwcltzythfreg and review of laboratory resultsNoVeterans Affairs [facility] Preg Test, UrNegativeNegativeNovant Health Clemmons Medical CenterLon 07-28-2025L Specimen: [id number] Received: 07/29/25 Status: SRINIVASAN Levy Num: [id number] Spec Type: Surgical Subm Dr: Mark Roslaes Tissues: A Endometrium - Biopsy (ENDOMETRIUM BX) Procedures: HE/2, Gross/Micro L4 Age/ Patient Sex Location Account Attending Physician Prudencio Jaramillo 30/F [facility] [id number] Mark Rosales SPEC NUM: [id number] RECD: 07/29/25 STATUS: SRINIVASAN JEFFREY NUM: [id number] BALA: 07/28/[address] [facility] [address]: Mark Rosales ENTERED: 07/29/[address]: Loree,Lab SPEC TYPE: Surgical DEPT: [facility] ENTERED BY: [id number] RECV BY: [id number] ORDERED: HE/2, Gross/Micro L4 ORDERED: HE/2, Gross/Micro L4 Pathological Diagnosis Endometrium, biopsy: - Proliferative phase endometrium. - Scant fragments of benign endocervical mucosa. - No evidence of hyperplasia or malignancy identified. Clinical Information Menorrhagia N92.0, pelvic pain R10.20 Gross Description Received in formalin labeled with the patient's name, date of , and endometrium, BX are santana-pink to red-brown, delicate tissue fragments, admixed with a pale campuzano mucoid material, 2 x 1.3 x 0.2 cm in aggregate. The specimen is filtered and entirely submitted in a single cassette. (1, ns, [id number] A) Microscopic Description Microscopic examination is performed. Specimen: [id number] Received: 07/29/25 Status: SRINIVASAN Levy Num: [id number] Spec Type: Surgical Subm Dr: Mark Rosales Tissues: A Endometrium - Biopsy (ENDOMETRIUM BX) Procedures: Raegan EDMONDSON/Kali L4 Patient: Prudencio Jaramillo [id number] (Continued) Specimen: [id number] Received: 07/29/25 (Continued) Signed (signature on file) Sadi Johnson MD 07/30/25 1154 Specimen: [id number] Received: 07/29/25 Status: SRINIVASAN Levy Num: [id number] Spec Type: Surgical Subm Dr: Mark Rosales Tissues: A Endometrium - Biopsy (ENDOMETRIUM BX) Procedures: DEBO Gross/Micro L4 Patient: Hunter Jaramilloiley Cindi [id number] (Continued) Specimen: [id number] Received: 07/29/25 (Continued) CPT Codes 68802 Specimen: [id number] Received: 07/29/25 Status: SRINIVASAN Levy Num: [id number] Spec Type: Surgical Subm Dr: Mark Rosales Tissues: A Endometrium - Biopsy (ENDOMETRIUM BX) Procedures: Raegan/Micro L4 Patient: Prudencio Jaramillo [id number] (Continued) Signed (signature on file) Sadi Johnson MD 07/30/25 1154Normal [facility]/ TVon 09-10-0968DM PELVIC COMPLETE W/ TVFINDINGS: Uterus 9.4 x 4.9 x 6.7 cm Endometrium 10 mm Right ovary 3.4 x 2.5 x 2.3 cm (volume 10 cc) Left ovary 2.5 x 2.0 x 1.7 cm (volume 4.5 cc) Heterogeneous area anterior uterine body, 2.8 x 2.6 x 2.0 cm consistent with an intramural fibroid.Normal appearing endometrium Normal ovaries. No pelvic fluid. IMPRESSION: Uterine findings consistent with a 2-3 cm intramural fibroid TRANSCRIBED BY: ELECTRONICALLY SIGNED BY: Tk Valdez MDNobeckyalNot AvailableComment on above:Order Comment: US PELVIS-TRANSVAG IF INDICATED No LMP recorded.CT ABDOMEN PELVIS W IV CONTRASTon 85-27-4370SE ABDOMEN PELVIS W IV CONTRASTEXAMINATION: CT OF THE ABDOMEN AND PELVIS WITH CONTRAST 03/20/2025 9:43 am TECHNIQUE: CT of the abdomen and pelvis was performed with the administration of intravenous contrast. Multiplanar reformatted images are provided for review. Automated exposure control, iterative reconstruction, and/or weight based adjustment of the mA/kV was utilized to reduce the radiation dose to as low as reasonably achievable. COMPARISON: None. HISTORY: ORDERING SYSTEM PROVIDED HISTORY: Blood per rectum, Left lower quadrant abdominal pain TECHNOLOGIST PROVIDED HISTORY: Additional Contrast?->None STAT Creatinine as needed:->Yes Reason for exam:->Abdominal pain What reading provider will be dictating this exam?->CRC FINDINGS: LOWER CHEST: Visualized lung bases are clear. LIVER: Unremarkable. BILIARY: No biliary dilatation status post cholecystectomy. SPLEEN: Unremarkable. PANCREAS: Grossly unremarkable. ADRENALS: Unremarkable. KIDNEYS: Symmetric enhancement. No hydronephrosis. GI: No bowel obstruction. Oral contrast in small bowel loops and proximal colon. Appendix is not identified. No significant bowel wall thickening. No pneumoperitoneum. LYMPH NODES: No significant lymphadenopathy. VESSELS: Abdominal aorta is normal in caliber. PELVIS: Grossly unremarkable bladder and uterus. Trace free fluid. 2 cystic lesions in the right adnexa, larger of which measures 2.5 cm. BONES: No aggressive osseous lesion. ADDITIONAL FINDINGS: Small fatty supraumbilical ventral hernia. IMPRESSION: 1. No acute intra-abdominal pelvic process appreciated. No clear explanation for symptoms. 2. Trace free fluid in the pelvis. Two small cystic lesions in the right adnexa, larger which measures 2.5 cm. Interpreted by: Linwood Alas MD Signed by: Linwood Alas MD 03/23/25 [facility]Children[facility] CampusColonoscopy studyon 03-19-2025 [facility] Patient: PRUDENCIO JARAMILLO : 1995 Account: [id number] Sex at : Female Age: 29 Years Procedure: Colonoscopy Date: 03/19/2025 Attending Physician: JANINE FUNEZ Indications: - Hematochezia Medications: - Monitored Anesthesia Care Complications: - No immediate complications. Estimated Blood Loss: - Estimated blood loss: None. Procedure: - The Colonoscope was introduced through the anus and advanced to the cecum, identified by appendiceal orifice and ileocecal valve. - The patient tolerated the procedure well. - The quality of the bowel preparation was good. - The terminal ileum, ileocecal valve, appendiceal orifice, and rectum were photographed. Findings: - The terminal ileum appeared normal. - The colon (entire examined portion) appeared normal. Biopsies for histology were taken with a cold forceps from the entire colon for evaluation of microscopic colitis. - Non-bleeding external and internal hemorrhoids were found during retroflexion. The hemorrhoids were small and moderate. - The exam was otherwise normal throughout the examined colon. Impression: - The examined portion of the ileum was normal. - Non-bleeding external and internal hemorrhoids. - The entire examined colon is normal. Biopsied. Recommendation: - Await pathology results. - Return to GI clinic in 2 weeks. - Continue present medications. - The patient will be observed post-procedure, until all discharge criteria are met. - Patient has a contact number available for emergencies. The signs and symptoms of potential delayed complications were discussed with the patient. Return to normal activities tomorrow. Written discharge instructions were provided to the patient. Procedure Code(s): - 48172, Colonoscopy, flexible; with biopsy, single or multiple Diagnosis Code(s): - K92.1, Melena (includes Hematochezia) - K64.8, Other hemorrhoids CPT(R) - 2023 copyright [employer]. All Rights Reserved. The CPT codes, CCI edits and ICD codes generated are intended as suggestions and were generated based on input data. These codes are preliminary and upon braille coder review may be revised to meet current compliance and payer requirements. The provider is responsible for the final determination of appropriate codes, and modifiers. Scope Withdrawal Time: 00:09:08 JANINE FUNEZ This document has been electronically signed. Note Initiated:03/19/2025 Note Completed:03/19/2025 11:07 Janine Khan MD - 03/19/2025 [facility] Patient: PRUDENCIO JARAMILLO : 1995 Account: [id number] Sex at : Female Age: 29 Years Procedure: Colonoscopy Date: 03/19/2025 Attending Physician: JANINE FUNEZ Indications: - Hematochezia Medications: - Monitored Anesthesia Care Complications: - No immediate complications. Estimated Blood Loss: - Estimated blood loss: None. Procedure: - The Colonoscope was introduced through the anus and advanced to the cecum, identified by appendiceal orifice and ileocecal valve. - The patient tolerated the procedure well. - The quality of the bowel preparation was good. - The terminal ileum, ileocecal valve, appendiceal orifice, and rectum were photographed. Findings: - The terminal ileum appeared normal. - The colon (entire examined portion) appeared normal. Biopsies for histology were taken with a cold forceps from the entire colon for evaluation of microscopic colitis. - Non-bleeding external and internal hemorrhoids were found during retroflexion. The hemorrhoids were small and moderate. - The exam was otherwise normal throughout the examined colon. Impression: - The examined portion of the ileum was normal. - Non-bleeding external and internal hemorrhoids. - The entire examined colon is normal. Biopsied. Recommendation: - Await pathology results. - Return to GI clinic in 2 weeks. - Continue present medications. - The patient will be observed post-procedure, until all discharge criteria are met. - Patient has a contact number available for emergencies. The signs and symptoms of potential delayed complications were discussed with the patient. Return to normal activities tomorrow. Written discharge instructions were provided to the patient. Procedure Code(s): - 36304, Colonoscopy, flexible; with biopsy, single or multiple Diagnosis Code(s): - K92.1, Melena (includes Hematochezia) - K64.8, Other hemorrhoids CPT(R) - 2023 copyright [employer]. All Rights Reserved. The CPT codes, CCI edits and ICD codes generated are intended as suggestions and were generated based on input data. These codes are preliminary and upon braille coder review may be revised to meet current compliance and payer requirements. The provider is responsible for the final determination of appropriate codes, and modifiers. Scope Withdrawal Time: 00:09:08 JANINE FUNEZ This document has been electronically signed. Note Initiated:03/19/2025 Note Completed:03/19/2025 11:07 AM [facility] FallsSurgical Specimenon [facility]-19-20[facility] [address] [place], [place] [id number] FINAL SURGICAL PATHOLOGY REPORT Patient Name: PRUDENCIO JARAMILLO Accession No: [id number] Age Sex: 1995 Location: [facility] Account No: [id number] Collected: 03/19/2025 Med Rec No: [id number] Received: 03/20/2025 Attend Phys: JANINE FUNEZ Completed: 03/24/2025 Perform Phys: JANINE FUNEZ FINAL DIAGNOSIS: RANDOM COLON BIOPSIES: COLONIC MUCOSA, NO PATHOLOGIC DIAGNOSIS COMMENT: IMMUNOHISTOCHEMICAL STAINING FOR CD3 DOES NOT SHOW INCREASED INTRAEPITHELIAL LYMPHOCYTES. IMMUNOHISTOCHEMICAL CONTROL IS APPROPRIATE. JOSE/JOSE CLINICAL INFORMATION: Procedure: Colonoscopy with biopsies. Preoperative diagnosis: Blood per rectum. SPECIMEN: Random Colon Bx's GROSS DESCRIPTION: Received in one container labeled with the patient's name and designated random colon biopsies . The specimen is received in formalin. The specimen consists of portions of santana soft tissue, 0.5 x 0.5 x 0.1 cm in aggregate. The specimen is submitted in toto in one cassette. JOSE/SHAYE CPT: 87461 X1 85304 X1 J DENYS DAVIS M.D. 03/24/2025 Electronically signed out by Page 1 of 1Invalid Interpretation [facility] Behavioral HealthComment on above:Performed By: #### WALLY #### [facility] [address] [facility] [address] Oihxp , POCTon 79-58-0527Ozdj HCG ( test) Ql (U) NegativeNegativeBon [facility] MiniTimeLot [id number] [facility] Negative QC Pass/FailPassBon [facility]-ClovisDaleeli [facility] HospitalPositive QC Pass/FailPassBon [facility] FallsComprehensive Metabolic Panelon 20-38-1059Qupvbdx [Mass/Vol]4.0 g/dLNormal3.5-4.6MAnimas Surgical Hospital Comment on above:Performed By: #### CMP #### [facility] [address] [place] [address] PKZ [Catalytic activity/Vol]94 U/CTvgfqq17-552ZhlliAnimas Surgical HospitalComment on above:Performed By: #### CMP #### [facility] [address] [place] [address] BHH [Catalytic activity/Vol]20 U/LNormal0-33Anim[facility] Surgical HospitalComment on above:Performed By: #### CMP #### [facility] [address] [place] [address] Fcqht gap [Moles/Vol]11 mmol/LNormal9-15Animas Surgical HospitalComment on above:Performed By: #### CMP #### [facility] [address] [place] [address] NSI [Catalytic activity/Vol]14 U/LNormal0-35Anim[facility] Surgical HospitalComment on above:Performed By: #### CMP #### [facility] [address] [place] [address] Vkbjurwha [Mass/Vol]mg/dLNormal0.2-0.7[facility] Comment on above:Performed By: #### CMP #### [facility] [address] [place] [address] Ipkidyn [Mass/Vol]9.4 mg/dLNormal8.5-9.9Animas Surgical HospitalComment on above:Performed By: #### CMP #### [facility] [address] [place] [address] Qeducfvx [Moles/Vol]105 mmol/GFelxrf47-872ImosjAnimas Surgical HospitalComment on above:Performed By: #### CMP #### [facility] [address] [place] [address] FL2 [Moles/Vol]24 mmol/WBsqjcs70-43EtmnxAnimas Surgical Hospital Comment on above:Performed By: #### CMP #### [facility] [address] [place] [address] Ybnoelwxyx [Mass/Vol]0.51 mg/dLNormal0.50-0.90Animas Surgical HospitalComment on above:Performed By: #### CMP #### [facility] [address] [place] [address] QIO>90.0Normal>60Animas Surgical HospitalComment on above: Result Comment: Pediatric calculator link https://www.kidney.org/professionals/kdoqi/gfr_calculatorped Effective Jul 10, [...] or following therapy that affects renal tubular secretion.Performed By: #### CMP #### [facility] [address] [place] [address] Dlnwxaoc (S) [Mass/Vol]3.6 g/dLCritically high2.3-3.5Animas Surgical HospitalComment on above:Performed By: #### CMP #### [facility] [address] [place] [address] Scrdloo [Mass/Vol]83 mg/nSTdophz35-68GuxpbAnimas Surgical Hospital Comment on above:Performed By: #### CMP #### [facility] [address] [place] [address] Ojekujnzo [Moles/Vol]3.9 mmol/LNormal3.4-4.9Animas Surgical HospitalComment on above:Performed By: #### CMP #### [facility] [address] [place] [address] Vysuamh [Mass/Vol]7.6 g/dLNormal6.3-8.0[facility] Comment on above:Performed By: #### CMP #### [facility] [address] [place] [address] Euihau [Moles/Vol]140 mmol/TAslexg546-113MegmqAnimas Surgical HospitalComment on above:Performed By: #### CMP #### [facility] [address] [place] [address] Jkso nitrogen [Mass/Vol]10 mg/dLNormal6-20Animas Surgical HospitalComment on above:Performed By: #### CMP #### [facility] [address] [place] [address] AHF,APTIMA HPV,AGE GDLNon 14-36-1000BHO GDLN ACOG TESTINGNote.NOMS HealthcareComment on above:TESTS RESULT FLAG UNITS REF RANGE LAB Clinician Provided Cytology Information Source.............Cervix;Endocervix No. of containers..01 ThinPrep Vial Age Algo ACOG Lena... FLAG LEGEND: L-Low Normal,H-High Normal,LL-Alert Low,HH-Alert High <-Panic Low,>-Panic High,A-Abnormal,AA-Critical Abnormal Performed at: 01 =[address] [address] Sol Villalobos MD, HPV APTIMANegativeNegativeNOMS HealthcareComment on above:This nucleic acid amplification test detects fourteen high- risk HPV types (16,18,31,33,35,39,45,51,52,56,58,59,66,68) without differentiation. Performed at: =[address] [id number] Hearing Aid Dispenser: Sol Villalobos MD, Phone: [phone] Performed at: [address] [id number] Hearing Aid Dispenser: Sol Villalobos MD, Phone: [phone] IGP, APTIMA HPV, RFX 16/18,45Note.[facility] HealthcareComment on above:TESTS RESULT FLAG UNITS REF RANGE LAB DIAGNOSIS: 02 NEGATIVE FOR INTRAEPITHELIAL LESION OR MALIGNANCY. PREDOMINANCE OF COCCOBACILLI CONSISTENT WITH SHIFT IN VAGINAL ALIVIA IS PRESENT. Specimen adequacy: 02 Satisfactory for evaluation. Endocervical and/or squamous metaplastic cells (endocervical component) are present. Performed by: 02 Gely Ochoa, Parachute Packer ([facility]) . 02 Note: Note 02 The Pap smear is a screening test designed to aid in the detection of premalignant and malignant conditions of the uterine cervix. It is not a diagnostic procedure and should not be used as the sole means of detecting cervical cancer. Both false-positive and false-negative reports do occur. Test Methodology: Note 02 This liquid based ThinPrep(R) pap test was screened with the use of an image guided system. HPV Genotype Reflex Note 02 Criteria not met, HPV Genotype not performed. FLAG LEGEND: L-Low Normal,H-High Normal,LL-Alert Low,HH-Alert High <-Panic Low,>-Panic High,A-Abnormal,AA-Critical Abnormal Performed at: 02 [facility] [address] [place] [address] Sol Villalobos MD, BRUSH-SPATULA CERVIX ENDOCERVIX CLINISYNCNOMS HealthcareRECURRENT VAGINITIS (HTRX)on 96-19-8366WHXUMYEWC VAGINAE 18.38AbnormalNOMS HealthcareATOPOBIUM VAGINAEDetectedAbnormalNOMS HealthcareBVAB 2,3 (BACTERIAL VAGINOSIS ASSOCIATED BACTERIA 2, 3); MOBILUNCUS BAT6STLA HealthcareBVAB 2,3 (BACTERIAL VAGINOSIS ASSOCIATED BACTERIA 2, 3); MOBILUNCUS SPPNot detectedNOMS HealthcareCANDIDA ALBICANS, PARAPSILOSIS, RZYTHSTIIT9FCSV HealthcareCANDIDA ALBICANS, PARAPSILOSIS, TROPICALISNot detectedNOMS Healthcare DEUCE RKSNLEHR5LLQK HealthcareCANDIDA GLABRATANot detectedNOMS Healthcare DEUCE NDWUCP0ALUF HealthcareCANDIDA KRUSEINot detectedNOMS HealthcareCHLAMYDIA TJOFEHATLUV1TTYD HealthcareCHLAMYDIA TRACHOMATISNot detectedNOMS Healthcare ERMB, C; MEFA15.915AbnormalNOMS HealthcareERMB, C; MEFADetectedAbnormalNOMS HealthcareGARDNERELLA PUVDUCLGJ79.576AbnormalNOMS HealthcareGARDNERELLA VAGINALISDetectedAbnormalNOMS HealthcareInterpretation and review of laboratory resultsAbnormalNOMS HealthcareMEGASPHAERA (TYPES 1, 2)12.413AbnormalNOMS HealthcareMEGASPHAERA (TYPES 1, 2)DetectedAbnormalNOMS HealthcareMYCOPLASMA HWOEIMBWPR1BKHV HealthcareMYCOPLASMA GENITALIUMNot detectedNOMS Healthcare NEISSERIA ZBDVAZIVULA7VRUT HealthcareNEISSERIA GONORRHOEAENot detectedNOMS HealthcareTET B, TET M18.836AbnormalNOMS HealthcareTET B, TET MDetectedAbnormal NOMS HealthcareTRICHOMONAS VHEWLIWVY7TJAP HealthcareTRICHOMONAS VAGINALISNot detectedNOMS HealthcareNOMS HealthcareAlanine aminotransferase [Enzymatic activity/volume] in Serum or PlasmaOrdered By: Kentrell King on 64-96-7608IBM [Catalytic activity/Vol]Alanine aminotransferase [Enzymatic activity/volume] in Serum or Plasma7-[facility], [facility] ShawAlbumin [Mass/volume] in Serum or Plasma by Bromocresol green (BCG) dye binding methoOrdered By: Kentrell King on 65-56-8628Aeqgicw BCG dye [Mass/Vol]Albumin [Mass/volume] in Serum or Plasma by Bromocresol green (BCG) dye binding metho3.5-5.7FGerman HospitalAlkaline phosphatase [Enzymatic activity/volume] in Serum or PlasmaOrdered By: Kentrell King on 64-01-7591LCU [Catalytic activity/Vol] Alkaline phosphatase [Enzymatic activity/volume] in Serum or Ghppxb01-210 [facility] ShawAppearance of UrineOrdered By: Kentrell King on 70-47-3313Txmmdvwdjp (U)Urine appearanceAbnormalCDayton Children's HospitalAspartate aminotransferase [Enzymatic activity/volume] in Serum or PlasmaOrdered By: Kentrell King on 94-14-1345XFX [Catalytic activity/Vol] Aspartate aminotransferase [Enzymatic activity/volume] in Serum or Ifwsgw58-47 [facility] ShawBacteria [Presence] in Urine by Automated Ordered By: Kentrell King on 05-79-1855Sjxlxoih Auto Ql (U)Bacteria [Presence] in Urine by AutomatedNone [facility]riners HospitalBasic Metabolic Panelon 35-87-7074Fxcwb gap [Moles/Vol]9.7 mmol/LNormal6.0-15.0The [facility] Physician GroupComment on above:Performed By: #### BMP, CBC, LIPASE, HEPATIC #### [facility] [address] [id number] USACalcium [Mass/Vol]9.5 mg/dLNormal8.6-10.3The [facility] Physician GroupComment on above:Performed By: #### BMP, CBC, LIPASE, HEPATIC #### [facility] [address] [place] [address] USAChloride [Moles/Vol]108 mmol/ENlxf22-940Smx [facility] Physician GroupComment on above:Performed By: #### BMP, CBC, LIPASE, HEPATIC #### [facility] [address] [id number] USACO2 [Moles/Vol]24.4 mmol/BSkvkrx00.0-31.0The [facility] Physician GroupComment on above:Performed By: #### BMP, CBC, LIPASE, HEPATIC #### [facility] [address] [id number] USACreatinine [Mass/Vol]0.54 mg/dLLow0.60-1.20The [facility] Physician GroupComment on above:Performed By: #### BMP, CBC, LIPASE, HEPATIC #### [facility] [address] [place] [address] USACreatinine Clr Calc Atbrilxz311.30NormalThe [facility] Physician GroupComment on above:Performed By: #### BMP, CBC, LIPASE, HEPATIC #### [facility] [address] [place] [address] USAGFR/1.73 sq M.predicted MDRD (S/P/Bld) [Vol rate/Area] mL/min/{1.73_m2}NormalThe [facility] Physician GroupComment on above:Performed By: #### BMP, CBC, LIPASE, HEPATIC #### [facility] [address] [place] [address] USAGlucose [Mass/Vol]86 mg/uFZiumcp70-992Ves [facility] Physician GroupComment on above:Result Comment: Random Glucose Reference Range is dependent on time and content of last meal. Glucose of more than 200 mg/dL in a nonstressed, ambulatory subject supports the diagnosis of Diabetes Mellitus. ADA recommended reference rangePerformed By: #### BMP, CBC, LIPASE, HEPATIC #### [facility] [address] [place] [address] USAPotassium [Moles/Vol]4.1 mmol/LNormal3.5-5.1The [facility] Physician GroupComment on above:Performed By: #### BMP, CBC, LIPASE, HEPATIC #### [facility] [address] [place] [address] USASodium [Moles/Vol]138 mmol/DCcakob306-491Mrx [facility] Physician GroupComment on above:Performed By: #### BMP, CBC, LIPASE, HEPATIC #### [facility] [address] [place] [address] USAUrea nitrogen [Mass/Vol]12 mg/dLNormal7-25The [facility] Physician GroupComment on above:Performed By: #### BMP, CBC, LIPASE, HEPATIC #### [facility] [address] [place] [address] USABasophils Auto (Bld) [#/Vol]Ordered By: Kentrell King on 31-90-8119Xlpwicfcl (Bld) [#/Vol]Automated basophil count0.0-0.2FGerman HospitalBasophils/100 WBC Auto (Bld)Ordered By: Kentrell King on 83-02-1786Iyyrxnsqa/100 WBC (Bld)Automated basophil %.[facility] ShawBilirubin Test strip Ql (U)Ordered By: Kentrell King on 40-03-7665Kvscwwkha Ql (U)Bilirubin.total [Presence] in Urine by Test strip NegativeSelect Medical Cleveland Clinic Rehabilitation Hospital, Edwin ShawBilirubin.direct [Mass/volume] in Serum or PlasmaOrdered By: Kentrell King on 02-54-6278Lfdmdbkgj.direct [Mass/Vol] Bilirubin.direct [Mass/volume] in Serum or Plasma0.03-0.18FGerman HospitalBilirubin.total [Mass/volume] in Serum or PlasmaOrdered By: Kentrell King on 10-00-6937Dblvamcus [Mass/Vol]Bilirubin.total [Mass/volume] in Serum or Plasma0.3-1.0[facility] ShawCalcium [Mass/volume] in Serum or PlasmaOrdered By: Kentrell King on 40-14-7220Abcwbnt [Mass/Vol] Calcium [Mass/volume] in Serum or Plasma8.6-10.3FGerman HospitalCarbon dioxide, total [Moles/volume] in Serum or PlasmaOrdered By: Kentrell King on 18-81-5705WH5 [Moles/Vol]Carbon dioxide, total [Moles/volume] in Serum or Sdfphc21.0-31.0[facility], [facility] ShawChloride [Moles/volume] in Serum or PlasmaOrdered By: Kentrell King on 49-09-8356Pgkpqjbo [Moles/Vol]Chloride [Moles/volume] in Serum or SwsodnCfwi73-250WyrjeaahwSelect Medical Cleveland Clinic Rehabilitation Hospital, Edwin ShawColor Auto (U)Ordered By: Kentrell King on 02-28-2025 Color (U)Color of Urine by AutoYellowSelect Medical [facility] Clinic Rehabilitation Hospital, Edwin ShawComplete Blood Count Auto Diffon 36-75-2510Ylknwerhj (Bld) [#/Vol]0.1 10*3/uLNormal 0.0-0.2The [facility] Physician GroupComment on above:Result Comment: PERFORMED BY: [place] [address] PATHOLOGIST CORPORATE ADMINISTRATIVE ASSISTANT KATLIN JERONIMO M.D.Performed By: #### BMP, CBC, LIPASE, HEPATIC #### [place] [address] USABasophils/100 WBC (Bld)0.8 %Normal.The [facility] Physician GroupComment on above:Performed By: #### BMP, CBC, LIPASE, HEPATIC #### [place] [address] USAEosinophils (Bld) [#/Vol]0.2 10*3/uLNormal0.0-0.45The [facility] Physician GroupComment on above:Performed By: #### BMP, CBC, LIPASE, HEPATIC #### [place] [address] USAEosinophils/100 WBC (Bld)2.4 %Normal.The [facility] Physician GroupComment on above:Performed By: #### BMP, CBC, LIPASE, HEPATIC #### [place] [address] USAErythrocyte distribution width (RBC) [Ratio]14.0 %Normal 11.9-15.3The [facility] Physician GroupComment on above:Performed By: #### BMP, CBC, LIPASE, HEPATIC #### [place] [address] USAHematocrit (Bld) [Volume fraction]42.6 %Hcorrn80.0-46.4The [facility] Physician GroupComment on above:Performed By: #### BMP, CBC, LIPASE, HEPATIC #### [place] [address] USAHemoglobin (Bld) [Mass/Vol]14.3 g/tGWafdai29.8-15.4The [facility] Physician GroupComment on above:Performed By: #### BMP, CBC, LIPASE, HEPATIC #### [place] [address] USALymphocytes (Bld) [#/Vol]1.7 10*3/uLNormal1.00-4.8The [facility] Physician GroupComment on above:Performed By: #### BMP, CBC, LIPASE, HEPATIC #### [place] [address] USALymphocytes/100 WBC (Bld)24.8 %Normal.The [facility] Physician GroupComment on above:Performed By: #### BMP, CBC, LIPASE, HEPATIC #### [address] (RBC) [Entitic mass]27.3 rcMcambb76.7-34.3The [facility] Physician GroupComment on above:Performed By: #### BMP, CBC, LIPASE, HEPATIC #### [address] (RBC) [Entitic vol]81.2 wVCisemv90-464Eth [facility] Physician GroupComment on above:Performed By: #### BMP, CBC, LIPASE, HEPATIC #### [place] [address] USAMean Corpuscular HGB Conc33.6 g/pHUffsdr27.0-35.0The [facility] Physician GroupComment on above:Performed By: #### BMP, CBC, LIPASE, HEPATIC #### [place] [address] USAMonocytes (Bld) [#/Vol]0.6 10*3/uLNormal0.0-0.8The [facility] Physician GroupComment on above:Performed By: #### BMP, CBC, LIPASE, HEPATIC #### [place] [address] USAMonocytes/100 WBC (Bld)24.94 %High0.00-20.00The [facility] Physician GroupComment on above:Result Comment: For adults in ED, MDW > 20.0 may be associated with a higher risk of sepsis during the first 12 hrs of hospital admissionPerformed By: #### BMP, CBC, LIPASE, HEPATIC #### [place] [address] USAMonocytes/100 WBC (Bld)8.5 %Normal.The [facility] Physician GroupComment on above:Performed By: #### BMP, CBC, LIPASE, HEPATIC #### [facility] [address] [place] [address] USANeutrophils (Bld) [#/Vol]4.3 10*3/uLNormal1.8-7.7The [facility] Physician GroupComment on above:Performed By: #### BMP, CBC, LIPASE, HEPATIC #### [facility] [address] [place] [address] USANeutrophils/100 WBC (Bld)63.5 %Normal.The [facility] Physician GroupComment on above:Performed By: #### BMP, CBC, LIPASE, HEPATIC #### [facility] [address] [place] [address] USANRBC%0.0 /100{WBC}Normal0-0.5The [facility] Comment on above:Performed By: #### BMP, CBC, LIPASE, HEPATIC #### [facility] [address] [place] [address] USAPlatelet mean volume (Bld) [Entitic vol]7.7 fLNormal 6.3-10.7The [facility] Physician GroupComment on above:Performed By: #### BMP, CBC, LIPASE, HEPATIC #### [place] [address] USAPlatelets (Bld) [#/Vol]262 10*3/xWIhfeks889-604Kbt [facility] Physician GroupComment on above:Performed By: #### BMP, CBC, LIPASE, HEPATIC #### [facility] [address] [place] [address] USARBC (Bld) [#/Vol]5.25 10*6/uLHigh3.60-5.00The [facility] Physician GroupComment on above:Performed By: #### BMP, CBC, LIPASE, HEPATIC #### [place] [address] USAWBC (Bld) [#/Vol]6.8 10*3/uLNormal3.8-11.6The [facility] Physician GroupComment on above:Performed By: #### BMP, CBC, LIPASE, HEPATIC #### [facility] [address] [place] [id number] USACreatinine [Mass/volume] in Serum or PlasmaOrdered By: Kentrell King on 69-68-5015Fsbtdylqwe [Mass/Vol]Creatinine [Mass/volume] in Serum or PlasmaLow0.60-1.20[facility] Edwin ShawDipstick and Microscopicon 95-19-8168Mprwlvudjk (U)CloudyCritically abnormalClearThe [facility] Physician GroupComment on above:Order Comment: Name Collection Type:: Clean-Voided MidstreamPerformed By: #### UHCG, ADDONUAPLUS, CUU #### [facility] [address] [place] [address] USABacteria,UrineRareNormalNone SeenThe [facility] Physician GroupComment on above:Order Comment: Name Collection Type:: Clean-Voided MidstreamPerformed By: #### UHCG, ADDONUAPLUS, CUU #### [facility] [address] [place] [address] USABilirubin,UrineNegativeNormalNegativeHca Florida Clearwater Emergency Physician GroupComment on above:Order Comment: Name Collection Type:: Clean- Voided MidstreamPerformed By: #### UHCG, ADDONUAPLUS, CUU #### [facility] [address] [place], [place] [id number] USAColor (U)YellowNormalYellowThe [facility] Physician Group Comment on above:Order Comment: Name Collection Type:: Clean-Voided Midstream Performed By: #### UHCG, ADDONUAPLUS, CUU #### [facility] [address] [place], [place] [id number] USAGlucose Ql (U)NormalNormalNormCleveland Clinic Avon Hospitale [facility] Physician GroupComment on above:Order Comment: Name Collection Type:: Clean-Voided MidstreamPerformed By: #### UHCG, ADDONUAPLUS, CUU #### [place] [address] USAHyaline Casts,UrineNoneNormal0-8The [facility] Physician GroupComment on above:Order Comment: Name Collection Type:: Clean-Voided MidstreamPerformed By: #### UHCG, ADDONUAPLUS, CUU #### [place] [address] USAKetones Ql (U)NegativeNormalNegativeHca Florida [facility] Emergency Physician GroupComment on above:Order Comment: Name Collection Type:: Clean- Voided MidstreamPerformed By: #### UHCG, ADDONUAPLUS, CUU #### [place] [address] USALeukocyte esterase Test strip Ql (U)2+HighNegativeThe [facility] Physician GroupComment on above:Order Comment: Name Collection Type:: Clean-Voided MidstreamPerformed By: #### UHCG, ADDONUAPLUS, CUU #### [place] [address] USAMucus,Urine3+Critically abnormalThe [facility] Physician GroupComment on above:Order Comment: Name Collection Type:: Clean-Voided MidstreamPerformed By: #### UHCG, ADDONUAPLUS, CUU #### [place] [address] USANitrite,UrineNegativeNormalNegativeThe [facility] Physician GroupComment on above:Order Comment: Name Collection Type:: Clean-Voided MidstreamPerformed By: #### UHCG, ADDONUAPLUS, CUU #### [place] [address] USAOccult Blood,UrineTraceHighNegativeThe [facility] Physician GroupComment on above:Order Comment: Name Collection Type:: Clean-Voided MidstreamPerformed By: #### UHCG, ADDONUAPLUS, CUU #### [place] [address] USApH (U)5.5 [pH]Normal5.0-9.0The [facility] Comment on above:Order Comment: Name Collection Type:: Clean-Voided Midstream Performed By: #### UHCG, ADDONUAPLUS, CUU #### [facility] [address] [place] [address] USAProtein,UrineTraceHighNegativeThe [facility] Physician GroupComment on above:Order Comment: Name Collection Type:: Clean-Voided MidstreamPerformed By: #### UHCG, ADDONUAPLUS, CUU #### [place] [address] USARBC,Aufmz0-9Nsxvqw2-0Dbq [facility] Physician GroupComment on above:Order Comment: Name Collection Type:: Clean-Voided MidstreamPerformed By: #### UHCG, ADDONUAPLUS, CUU #### [place] [address] USASpecificy [place],Urine1.932Rhig2.001-1.030The [facility] Physician GroupComment on above:Order Comment: Name Collection Type:: Clean- Voided MidstreamPerformed By: #### UHCG, ADDONUAPLUS, CUU #### [place] [address] USASquamous Epithelial Cell,Sedwy20-81Rtkz3-2Gjt [facility] Physician GroupComment on above:Order Comment: Name Collection Type:: Clean- Voided MidstreamPerformed By: #### UHCG, ADDONUAPLUS, CUU #### [place] [address] USAUrobilinogen,UrineNormalNormalNormalThe [facility] Physician GroupComment on above:Order Comment: Name Collection Type:: Clean- Voided MidstreamPerformed By: #### UHCG, ADDONUAPLUS, CUU #### [place] [id number] USAWBC,Vreom48-83Shph7-8Rso [facility] Physician GroupComment on above:Order Comment: Name Collection Type:: Clean-Voided MidstreamPerformed By: #### UHCG, ADDONUAPLUS, CUU #### [place] [address] USAEosinophils Auto (Bld) [#/Vol]Ordered By: Kentrell King on 48-40-1008Ymmdlkozzky (Bld) [#/Vol]Automated eosinophil count0.0-0.45 [facility] ShawEosinophils/100 WBC Auto (Bld)Ordered By: Kentrell King on 69-27-1093Xqpxlkuyatv/100 WBC (Bld)Automated eosinophil %. [facility] ShawEpithelial cells.squamous [#/area] in Urine sediment by Automated countOrdered By: Kentrell King on 08-67-0774Ddovowetbl cells.squamous Auto (Urine sed) [#/Area]Epithelial cells.squamous [#/area] in Urine sediment by Automated countHigh0-2FGerman Hospital Erythrocyte distribution width Auto (RBC) [Ratio]Ordered By: Kentrell King on 27-44-4238Zlvgsujpdxp distribution width (RBC) [Ratio]Erythrocyte distribution width [Ratio] by Automated count11.9-15.3FGerman Hospital Erythrocytes [#/area] in Urine sediment by Automated countOrdered By: Kentrell King on 04-14-6432OFF Auto (Urine sed) [#/Area]Erythrocytes [#/area] in Urine sediment by Automated count0-4FGerman HospitalGlobulin Calc (S) [Mass/Vol]Ordered By: Kentrell King on 64-98-9044Oclnqzjn (S) [Mass/Vol]Serum globulin measurement by calculation (mass/volume)[facility] ShawGlucose [Mass/volume] in Serum or PlasmaOrdered By: Kentrell King on 34-72-4230Jcwjqnb [Mass/Vol]Glucose [Mass/volume] in Serum or Vrhsve16-028MjhqcjzdqSelect Medical [facility] Rehabilitation Hospital, Edwin ShawComment on above:ADA recommended reference rangeRandom Glucose Reference Range is dependent on time and content of last meal. Glucose of more than 200 mg/dL in a nonstressed, ambulatory subject supports the diagnosisof Diabetes Mellitus.Glucose [Mass/volume] in Urine by Test stripOrdered By: Kentrell King on 17-83-1461Neghxsz Test strip (U) [Mass/Vol]Glucose [Mass/volume] in Urine by Test stripNormalSelect Medical [facility] Clinic Rehabilitation Hospital, Edwin ShawHCG ( test) IA.rapid Ql (U)Ordered By: Kentrell King on 58-21-0346OUH ( test) Ql (U)Urine human chorionic gonadotropin (hCG) detection by immunoassaySelect Medical [facility], [facility] Shaw HCG,Urineon 11-47-6385Kcdw HCG ( test) Ql (U)NegativeNormalThe [facility] Physician GroupComment on above:Order Comment: Name Collection Type:: Clean-Voided MidstreamResult Comment: PERFORMED BY: [place] [address] PATHOLOGIST CORPORATE ADMINISTRATIVE ASSISTANT KATLIN JERONIMO M.D.Performed By: #### UHCG, ADDONUAPLUS, CUU #### [place] [address] USAHematocrit Auto (Bld) [Volume fraction]Ordered By: Kentrell King on 47-10-6936Kxsthdcmzq (Bld) [Volume fraction]Hematocrit [Volume Fraction] of Blood by Automated count34.0-46.4FGerman Hospital Hemoglobin Test strip Ql (U)Ordered By: Kentrell King on 85-64-2280Nawmvezffo Ql (U)Hemoglobin [Presence] in Urine by Test stripHighNegativeSelect Medical Cleveland Clinic Rehabilitation Hospital, Edwin ShawHemoglobin [Mass/volume] in BloodOrdered By: Kentrell King on 06-84-7865Jcnnqofnbg (Bld) [Mass/Vol]Hemoglobin [Mass/volume] in Blood11.8-15.4 [facility] ShawHepatic Panelon 93-57-4459Owlnfyt [Mass/Vol]4.0 g/dLNormal3.5-5.7The [facility] Physician GroupComment on above:Performed By: #### BMP, CBC, LIPASE, HEPATIC #### [facility] [address] [place] [address] USAAlbumin/Globulin [Mass ratio]1.2 {ratio}NormalThe [facility] Physician GroupComment on above:Performed By: #### BMP, CBC, LIPASE, HEPATIC #### [facility] [address] [place] [address] USAALP [Catalytic activity/Vol]81 U/DUowhrr21-308Kke [facility] Physician GroupComment on above:Performed By: #### BMP, CBC, LIPASE, HEPATIC #### [facility] [address] [place] [address] USAALT [Catalytic activity/Vol]22 U/LNormal7-52The [facility] Physician GroupComment on above:Performed By: #### BMP, CBC, LIPASE, HEPATIC #### [facility] [address] [place] [address] USAAST [Catalytic activity/Vol]19 U/LRjlybv98-92Obu [facility] Physician GroupComment on above:Performed By: #### BMP, CBC, LIPASE, HEPATIC #### [facility] [address] [place] [address] USABilirubin [Mass/Vol]0.4 mg/dLNormal0.3-1.0The [facility] Physician GroupComment on above:Performed By: #### BMP, CBC, LIPASE, HEPATIC #### [place] [address] USABilirubin,Indirect0.3 mg/dLNormalThe [facility] Physician GroupComment on above:Performed By: #### BMP, CBC, LIPASE, HEPATIC #### [place] [address] USABilirubin.indirect [Mass/Vol]0.10 mg/dLNormal0.03-0.18The [facility] Physician GroupComment on above:Performed By: #### BMP, CBC, LIPASE, HEPATIC #### [place] [address] USAGlobulin (S) [Mass/Vol]3.4 g/dLNormalThe [facility] Physician GroupComment on above:Performed By: #### BMP, CBC, LIPASE, HEPATIC #### [place] [address] USAProtein [Mass/Vol]7.4 g/dLNormal6.4-8.9The [facility] Physician GroupComment on above:Performed By: #### BMP, CBC, LIPASE, HEPATIC #### [place] [address] USAHyaline casts [#/area] in Urine sediment by Automated countOrdered By: Kentrell King on 86-60-3356Kkfwdqw casts Auto (Urine sed) [#/Area]Hyaline casts [#/area] in Urine sediment by Automated count0-8[facility] ShawINR in Platelet poor plasma by Coagulation assayOrdered By: Kentrell King on 11-57-4081WLW Coag (PPP) [Relative time]INR in Platelet poor plasma by Coagulation assaySelect Medical Cleveland Clinic Rehabilitation Hospital, Edwin ShawComment on above:INR Therapeutic Range A) Pre- and Peroperative OAT started two weeks before surgery. NOT HIP SURGERY: 1.5 - 2.5 HIP SURGERY: 2 - 3B) Primary and secondary prevention of venous THROMBOSIS: 2 - 3C) Active venous thrombosis, pulmonary embolismand prevention of recurrent venous thrombosis: 2 - 3D) Preve ntion of arterial thromboembolismincluding patients with mechanical heart valves: 3 - 4.5Ketones Test strip Ql (U)Ordered By: Kentrell King on 98-97-5606Sytrzpi Ql (U)Ketones [Presence] in Urine by Test stripNegative [facility] ShawLeukocyte esterase [Presence] in Urine by Test stripOrdered By: Kentrell King on 46-07-3317Ksptcrpfp esterase Test strip Ql (U)Leukocyte esterase [Presence] in Urine by Test stripHighNegativeSelect Medical [facility] Clinic Rehabilitation Hospital, Edwin ShawLeukocytes [#/area] in Urine sediment by Automated count Ordered By: Kentrell King on 45-77-8239FFX Auto (Urine sed) [#/Area] Leukocytes [#/area] in Urine sediment by Automated countHigh04FGerman HospitalLeukocytes [#/volume] corrected for nucleated erythrocytes in Blood by Automated counOrdered By: Kentrell King on 80-20-4295SJB corrected for nucl RBC Auto (Bld) [#/Vol]Leukocytes [#/volume] corrected for nucleated erythrocytes in Blood by Automated coun3.8-11.6FGerman HospitalLipaseon 36-21-0577Fpellw [Catalytic activity/Vol]9.0 U/LLow11.0-82.0The [facility] Physician GroupComment on above:Result Comment: PERFORMED BY: [place] [address] [place] [address] PATHOLOGIST CORPORATE ADMINISTRATIVE ASSISTANT KATLIN JERONIMO M.D.Performed By: #### BMP, CBC, LIPASE, HEPATIC #### [facility] [address] [place] [id number] USALipase [Enzymatic activity/volume] in Serum or Plasma Ordered By: Kentrell King on 76-58-1813Ashhrk [Catalytic activity/Vol]Lipase [Enzymatic activity/volume] in Serum or SrphmdEvv88.0-82.0[facility], [facility] ShawLymphocytes Auto (Bld) [#/Vol]Ordered By: Kentrell King on 33-78-5200Ikvakfjpwfo (Bld) [#/Vol]Lymphocytes [#/volume] in Blood by Automated count1.00-4.8[facility], Edwin ShawLymphocytes/100 WBC Auto (Bld) Ordered By: Kentrell King on 46-24-8358Jcwmlhpyrrv/100 WBC (Bld) Lymphocytes/100 leukocytes in Blood by Automated count.[facility] Auto (RBC) [Entitic mass]Ordered By: Kentrell King on 00-02-8090JRH (RBC) [Entitic mass]MCH [Entitic mass] by Automated count24.7-34.3 [facility] CampusHC Auto (RBC) [Mass/Vol]Ordered By: Kentrell King on 60-88-7947EMVL (RBC) [Mass/Vol]MCHC [Mass/volume] by Automated count 32.0-35.0[facility] ShawMCV Auto (RBC) [Entitic vol]Ordered By: Kentrell King on 18-79-9351TXL (RBC) [Entitic vol]MCV [Entitic volume] by Automated -777XzcfhhnhnSelect Medical Cleveland Clinic Rehabilitation Hospital, Edwin ShawMonocyte distribution width [Entitic volume] in Blood by AutomatedOrdered By: Kentrell King on 21-26-6066Ktppuavs distribution width Auto (Bld) [Entitic vol]Monocyte distribution width [Entitic volume] in Blood by AutomatedHigh0.00-20.00[facility], [facility] ShawComment on above:For adults in ED, MDW > 20.0 may be associated with a higher risk of sepsis during the first 12 hrs of hospital admissionMonocytes Auto (Bld) [#/Vol]Ordered By: Kentrell King on 02-28-2025 Monocytes (Bld) [#/Vol]Automated blood monocyte count0.0-0.8[facility] ShawMonocytes/100 WBC Auto (Bld)Ordered By: Kentrell King on 33-40-7885Ocatpqcyo/100 WBC (Bld)Automated monocyte %.[facility] ShawMucus [Presence] in Urine by AutomatedOrdered By: Kentrell King on 32-79-0229Kklnh Auto Ql (U)Mucus [Presence] in Urine by AutomatedAbnormal [facility] ShawNeutrophils Auto (Bld) [#/Vol]Ordered By: Kentrell King on 88-59-9924Owoxywlxolt (Bld) [#/Vol]Neutrophils [#/volume] in Blood by Automated count1.8-7.7FGerman HospitalNeutrophils/100 WBC Auto (Bld)Ordered By: Kentrell King on 68-47-6754Ykflgeugvlz/100 WBC (Bld)Automated neutrophil %.[facility] ShawNitrite Test strip Ql (U)Ordered By: Kentrell King on 51-07-3580Ydvhsiw Ql (U)Nitrite [Presence] in Urine by Test stripNegativeSelect Medical [facility], Edwin ShawNo Panel InformationOrdered By: Kentrell King on 59-33-5097Vkwnqhvxf GFR (CKD-EPI)> 60.0 mL/MinSelect Medical Cleveland Clinic Rehabilitation Hospital, Edwin ShawPharmacy Creatinine Clearance (Chem 183.30[facility] ShawNucleated erythrocytes [Presence] in Blood by Automated countOrdered By: Kentrell King on 94-40-6260Ekegeugcr RBC Auto Ql (Bld)Nucleated erythrocytes [Presence] in Blood by Automated count0-0.5 [facility] ShawPartial Thromboplastin Timeon 03-60-4659bAVD Coag (Bld) [Time]31.8 hCjqxbw70.1-36.5The [facility] Physician GroupComment on above:Result Comment: A hematocrit value greater than 55% may lead to inaccurate results in coagulation testing. Patients having hematocrit values >55% require a special collection tube for coagulation studies. Please contact the laboratory at [phone] for redraw instructions. PERFORMED BY: [facility] [address] [place] [address] PATHOLOGIST CORPORATE ADMINISTRATIVE ASSISTANT KATLIN JERONIMO M.D.Performed By: #### PTT, PT #### [place] [address] USAPlatelet mean volume Auto (Bld) [Entitic vol]Ordered By: Kentrell King on 08-69-8530Siyjovnv mean volume (Bld) [Entitic vol]Platelet mean volume [Entitic volume] in Blood by Automated count6.3-10.7FGerman HospitalPlatelets Auto (Bld) [#/Vol]Ordered By: Kentrell King on 31-88-6090Krgshqxqb (Bld) [#/Vol]Platelets [#/volume] in Blood by Automated -394UaeuclrglSelect Medical Cleveland Clinic Rehabilitation Hospital, Edwin ShawPotassium [Moles/volume] in Serum or PlasmaOrdered By: Kentrell King on 88-89-6603Vyxcejwsy [Moles/Vol] Potassium [Moles/volume] in Serum or Plasma3.5-5.1FGerman HospitalProtein Test strip (U) [Mass/Vol]Ordered By: Kentrell King on 41-25-4112Nlnvwwl (U) [Mass/Vol]Protein [Mass/volume] in Urine by Test stripHigh NegativeSelect Medical Cleveland Clinic Rehabilitation Hospital, Edwin ShawProtein [Mass/volume] in Serum or PlasmaOrdered By: Kentrell King on 62-08-5918Xmsvahs [Mass/Vol]Protein [Mass/volume] in Serum or Plasma6.4-8.9[facility] Prothrombin Time INRon 23-02-3246VPO Coag (PPP) [Relative time]1.1 {INR}Normal The [facility] Physician GroupComment on above:Result Comment: INR Therapeutic Range A) Pre- and Peroperative OAT started two weeks before surgery. NOT HIP SURGERY: 1.5 - 2.5 HIP SURGERY: 2 - 3 B) Primary and secondary prevention of venous THROMBOSIS: 2 - 3 C) Active venous thrombosis, pulmonary embolism and prevention of recurrent venous thrombosis: 2 - 3 D) Prevention of arterial thromboembolism including patients with mechanical heart valves: 3 - 4.5Performed By: #### PTT, PT #### [facility] [address] [place] [address] USAPT Coag (PPP) [Time]12.2 sNormal9.0-12.9The [facility] Physician GroupComment on above:Result Comment: A hematocrit value greater than 55% may lead to inaccurate results in coagulation testing. Patients having hematocrit values >55% require a special collection tube for coagulation studies. Please contact the laboratory at [phone] for redraw instructions.Performed By: #### PTT, PT #### [facility] [address] [place] [address] USAProthrombin time (PT)Ordered By: Kentrell King on 12-09-3726ZY Coag (PPP) [Time]Prothrombin time (PT)9.0-12.9[facility], Edwin ShawComment on above:A hematocrit value greater than 55% may lead to inaccurate results in coagulation testing. Patientshaving hematocrit values >55% require a special collection tube for coagulation studies. Please contact the laboratory at [phone] for redraw instructions.RBC Auto (Bld) [#/Vol]Ordered By: Kentrell King on 87-19-2351TYJ (Bld) [#/Vol]Erythrocytes [#/volume] in Blood by Automated countHigh3.60-5.00Toledo Hospitalerum or plasma albumin/globulin mass ratioOrdered By: Kentrell King on 02-28-2025 Albumin/Globulin [Mass ratio]Serum or plasma albumin/globulin mass ratio [facility] Hospitalerum or plasma anion gap determinationOrdered By: Kentrell King on 58-67-5439Ckbzk gap [Moles/Vol]Serum or plasma anion gap determination6.0-15.0T[facility]edo Hospitalerum or plasma non- glucuronidated bilirubin measurement (mass/volume)Ordered By: Kentrell King on 65-21-7795Zooxrrxrf.indirect [Mass/Vol]Serum or plasma non-glucuronidated bilirubin measurement (mass/volume)Toledo Hospitalodium [Moles/volume] in Serum or PlasmaOrdered By: Kentrell King on 02-28-2025 Sodium [Moles/Vol]Sodium [Moles/volume] in Serum or Tofkdj740-227ExdpctbmpToledo Hospitalpecific gravity Test strip (U) [Rel density]Ordered By: Kentrell King on 83-00-9886Konivxay gravity (U) [Rel density]Specific gravity of Urine by Test stripHigh1.001-1.030[facility], [facility] ShawUrea nitrogen [Mass/volume] in Serum or PlasmaOrdered By: Kentrell King on 52-02-7492Joev nitrogen [Mass/Vol]Urea nitrogen [Mass/volume] in Serum or Plasma 7-[facility] Hospital, Edwin ShawUrine Cultureon 88-57-5541Estatlnj identified Cx Nom (U)>100,000 colonies/ml mixed bacterial skin contaminants 2 Days PERFORMED BY: [place] [address] PATHOLOGIST CORPORATE ADMINISTRATIVE ASSISTANT KATLIN JERONIMO M.D.[facility] Physician GroupComment on above: Performed By: #### CG, OZIEL, CUU #### [place] [address] USAUrobilinogen Test strip (U) [Mass/Vol]Ordered By: Kentrell King on 08-55-0917Ambpolnzflma (U) [Mass/Vol]Urobilinogen [Mass/volume] in Urine by Test stripNoTogus VA Medical CenterWBC Auto (Bld) [#/Vol] Ordered By: Kentrell King on 72-49-6996RCR (Bld) [#/Vol]Leukocytes [#/volume] in Blood by Automated count3.8-11.6FGerman HospitalaPTT in Platelet poor plasma by Coagulation assayOrdered By: Kentrell King on [id number] Coag (PPP) [Time]Activated partial thromboplastin time (aPTT) in platelet poor plasma by coagulation a25.1-36.5FGerman [facility] Comment on above:A hematocrit value greater than 55% may lead to inaccurate results in coagulation testing. Patientshaving hematocrit values >55% require a special collection tube for coagulation studies. Please contact the laboratory at [phone] for redraw instructions.pH Test strip (U)Ordered By: Kentrell King on 21-60-3739dN (U)pH of Urine by Test strip5.0-9.0[facility] ShawCB With Platelet and Differentialon 79-98-5637Epgkgmdry (Bld) [#/Vol]0.0 10*3/uLNormal0.0-0.2MAnimas Surgical HospitalComment on above: Performed By: #### CBCWD #### [facility] [address] [place] [address] Qdghzkmzu/100 WBC (Bld)0.3 %[facility] Comment on above:Performed By: #### CBCWD #### [facility] [address] [place] [address] Huivszqsfcr (Bld) [#/Vol]0.2 10*3/uLNormal0.0-0.7Animas Surgical HospitalComment on above:Performed By: #### CBCWD #### [facility] [address] [place] [address] Movnxsftshb/100 WBC (Bld)2.1 %[facility] Comment on above:Performed By: #### CBCWD #### [facility] [address] [place] [address] Sxqteagdvgk distribution width (RBC) [Ratio]12.8 %Ctezis01.5-14.5 [facility] HospitalComment on above:Performed By: #### CBCWD #### [facility] [address] [place] [address] Pmptfeluwc (Bld) [Volume fraction]41.9 %Kafvbj61.0-47.0Animas Surgical HospitalComment on above:Performed By: #### CBCWD #### [facility] [address] [place] [address] Swcafzkdmi (Bld) [Mass/Vol]13.3 g/lYAnefdy71.0-16.0Animas Surgical HospitalComment on above:Performed By: #### CBCWD #### [facility] [address] [place] [address] Gueqlozcpbq (Bld) [#/Vol]2.8 10*3/uLNormal1.0-4.8Animas Surgical HospitalComment on above:Performed By: #### CBCWD #### [facility] [address] [place] [address] Vecwwscezxr/100 WBC (Bld)31.2 %[facility] Comment on above:Performed By: #### CBCWD #### [facility] [address] [place] [address] KJG (RBC) [Entitic mass]26.4 pgLow27.0-31.3MAnimas Surgical HospitalComment on above:Performed By: #### CBCWD #### [facility] [address] [place] [address] TXKU71.7 %Low33.0-37.0Animas Surgical HospitalComment on above: Performed By: #### CBCWD #### [facility] [address] [place] [address] LOK (RBC) [Entitic vol]83.1 aZMfvowv98.4-94.8Animas Surgical HospitalComment on above:Performed By: #### CBCWD #### [facility] [address] [place] [address] Uqkhxdnmf (Bld) [#/Vol]0.4 10*3/uLNormal0.2-0.8Animas Surgical HospitalComment on above:Performed By: #### CBCWD #### [facility] [address] [place] [address] Nphfejtzg/100 WBC (Bld)5.0 %[facility] Comment on above:Performed By: #### CBCWD #### [facility] [address] [place] [address] Pgwhouezolm (Bld) [#/Vol]5.4 10*3/uLNormal1.4-6.5Animas Surgical HospitalComment on above:Performed By: #### CBCWD #### [facility] [address] [place] [address] Mkycbimwoja/100 WBC (Bld)60.9 %NormalAnimas Surgical Hospital Comment on above:Performed By: #### CBCWD #### [facility] [address] [place] [address] Lvpddhqlf (Bld) [#/Vol]321 10*3/lTCzlizu764-475DhlslAnimas Surgical HospitalComment on above:Performed By: #### CBCWD #### [facility] [address] [place] [address] PLA (Bld) [#/Vol]5.04 10*6/uLNormal4.20-5.40Animas Surgical HospitalComment on above:Performed By: #### CBCWD #### [facility] [address] [place] [address] ZOW (Bld) [#/Vol]8.9 10*3/uLNormal4.8-10.8Animas Surgical HospitalComment on above:Performed By: #### CBCWD #### [facility] [address] [place] [address] C Urineon [id number] identified Cx Nom (U)Microbiology PROCEDURE: Urine Culture [R1] SOURCE: U CleanCatch BODY SITE: COLLECTED DATE/TIME: 11/23/2024 03:54 EST RECEIVED DATE/TIME: 11/23/2024 04:48 EST START DATE/TIME: 11/23/2024 04:48 EST FREE TEXT SOURCE: Drake Bynum, Debra Juan M.D., Debra Tang FINAL REPORTS Final Report [] Verified Date/Time: 11/25/2024 10:24 EST 2,000 cfu/ml Mixed skin contaminants Performing Locations R1: This test was performed at: [employer], [address] [place] [address], [id number]- , [place], MjerytKehcetPromedica Bay Park HospitalComment on above:Performed By: #### [id number] #### [facility] [address] [place] [address]EZSqo 83-55-4041Cyueq gap [Moles/Vol]12 mmol/LNormal6-16[facility] HospitalComment on above:Performed By: #### [id number] #### [facility] [address] [place] [address] 190[address]Jdeavee [Mass/Vol]9.2 mg/dLNormal8.9-11.1FCleveland Clinic Mercy HospitalComment on above:Performed By: #### [id number] #### [facility] [address] [place] [address] 10472Hvquvsbf [Moles/Vol]107 mmol/XIknkby078-746EgdjwqPromedica Bay Park HospitalComment on above:Performed By: #### [id number] #### [facility] [address] [place] [address]HO8 [Moles/Vol]23 mmol/VFicafv55-15KgblnqPromedica Bay Park Hospital Comment on above:Performed By: #### [id number] #### [facility] [address] [place] [address] 600[address]Lnvieqlwds [Mass/Vol]0.6 mg/dLNormal0.5-1.3FCleveland Clinic Mercy HospitalComment on above:Performed By: #### [id number] #### [facility] [address] [place] [address] 499[address]Asocvcs [Mass/Vol]121 mg/qKXofruw41-630KdhhaoPromedica Bay Park HospitalComment on above:Performed By: #### [id number] #### [facility] [address] [place] [address] 833[address]Yjrybqucj [Moles/Vol]4.0 mmol/LNormal3.5-5.3FCleveland Clinic Mercy HospitalComment on above:Performed By: #### [id number] #### [facility] [address] [place], [place] [address]Zbpbvr [Moles/Vol]138 mmol/WHlylkk797-121FezqiyPromedica Bay Park HospitalComment on above:Performed By: #### [id number] #### [facility] [address] [place] [address] 45[address]Alxa nitrogen [Mass/Vol]13 mg/dLNormal5-21Prom[facility] Park HospitalComment on above:Performed By: #### [id number] #### [facility] [address] [place] [address] 28829Cbis nitrogen/Creatinine [Mass ratio]22 No RakdsAuoy49-75GtwbgrPromedica Bay Park HospitalComment on above:Performed By: #### [id number] #### [facility] [address] [place] [address]YJH w/ Auto Diffon 79-28-2806Wxbjvpfyh/100 WBC (Bld)0.6 %Normal 0.0-2.0[facility] Park HospitalComment on above:Performed By: #### [id number] #### [facility] [address] [place] [address]13[address]Vndmcmaff/Leukocytes Auto (Bld) [Pure # fraction]0.1 E9/LNormal 0.0-0.2FCleveland Clinic Mercy HospitalComment on above:Performed By: #### [id number] #### [facility] [address] [place] [address] 95[address]Pouhlnxtnco (Bld) [#/Vol]0.1 E9/LNormal0.0-0.5FCleveland Clinic Mercy HospitalComment on above:Performed By: #### [id number] #### [facility] [address] [place] [address] 978[address]Wuvughzaeje/100 WBC (Bld)1.5 %Normal0.0-8.0Prom[facility] Park HospitalComment on above:Performed By: #### [id number] #### [facility] [address] [place] [address]Njuihlwlnud distribution width (RBC) [Ratio]14.4 %High10.9-14.2 [facility] Park HospitalComment on above:Performed By: #### [id number] #### [facility] [address] [place] [address] 216[address]Byegibnxnc (Bld) [Volume fraction]42.4 %Kdnqot07.0-46.0[facility] Park HospitalComment on above:Performed By: #### [id number] #### [facility] [address] [place] [address]Lujyztopym (Bld) [Mass/Vol]14.3 g/uPWuyehv01.0-16.0[facility] HospitalComment on above:Performed By: #### [id number] #### [facility] [address] [place] [address] 47[address]Kpfhantprnk (Bld) [#/Vol]1.2 E9/LNormal1.0-4.0[facility] Park HospitalComment on above:Performed By: #### [id number] #### [facility] [address] [place] [address]Ynmwjrwulgk/100 WBC (Bld)13.5 %Low14.0-50.0Prom[facility] Park HospitalComment on above:Performed By: #### [id number] #### [facility] [address] [place] [address] 205[address]WWE (RBC) [Entitic mass]27.8 jpGjmfel28.0-34.0[facility] HospitalComment on above:Performed By: #### [id number] #### [facility] [address] [place] [address] 58[address]CNGT (RBC) [Mass/Vol]33.7 g/sSIbywra48.4-36.0[facility] HospitalComment on above:Performed By: #### [id number] #### [facility] [address] [place] [address] 71991GTB (RBC) [Entitic vol]82.3 cERwdpru65.0-100.0Prom[facility] Park HospitalComment on above:Performed By: #### [id number] #### [facility] [address] [place] [address] 4[address]Jygnjluhe (Bld) [#/Vol]0.4 E9/LNormal0.2-1.0[facility] Park HospitalComment on above:Performed By: #### [id number] #### [facility] [address] [place] [address] 16173Mtjvwjuehor (Bld) [#/Vol]7.2 E9/LNormal2.0-7.5FCleveland Clinic Mercy HospitalComment on above:Performed By: #### [id number] #### [facility] [address] [place] [address]Mfuvstgmsmh/100 WBC (Bld)80.0 %High36.0-75.0[facility] Park HospitalComment on above:Performed By: #### [id number] #### [facility] [address] [place] [address] 466[address]Jaqxzvtg469.0 E9/FEaruam050.0-500.0[facility] Comment on above:Performed By: #### [id number] #### [facility] [address] [place] [address] 27739Lbdxjnrg mean volume (Bld) [Entitic vol]8.4 fLNormal6.4-10.8 [facility] HospitalComment on above:Performed By: #### [id number] #### [facility] [address] [place] [address] 999[address]CXA (Bld) [#/Vol]5.2 E12/LNormal4.3-5.9Prom[facility] Park HospitalComment on above:Performed By: #### [id number] #### [facility] [address] [place] [address] 835[address]IQX corrected for nucl RBC Auto (Bld) [#/Vol]9.0 E9/LNormal 4.0-11.0[facility] HospitalComment on above:Performed By: #### [id number] #### [facility] [address] [place], [place] [address]XSMAJHJQMNfckoni By: SYSTEM SYSTEM on 07-72-7259Guczeum [Mass/Vol]4.2 g/dLNormal3.3 - 5.0 gm/dLRemisol ChemAlbumin/Globulin [Mass ratio] 1.1 {ratio}Normal1.1 - 2.2Remisol ChemALP [Catalytic activity/Vol]73 [iU]/d Bqzphd91 - 98 Int._Unit/LRemisol ChemALT No additional P-5'-P [Catalytic activity/Vol]17 [iU]/dNormal6 - 46 Int._Unit/LRemisol ChemAnion gap [Moles/Vol] 12 mmol/LNormal6 - 16 mEq/LRemisol ChemAST [Catalytic activity/Vol]18 [iU]/d Normal5 - 43 Int._Unit/LRemisol ChemBilirubin [Mass/Vol]0.8 mg/dLNormal0.0 - 1.1 mg/dLRemisol ChemBilirubin.direct [Mass/Vol]0.0 mg/dLNormal0.0 - 0.4 mg/dL Remisol ChemBilirubin.indirect [Mass or moles/Vol]0.8 mg/dLNormal0.1 - 0.9 mg/dL Remisol ChemCalcium [Mass/Vol]9.2 mg/dLNormal8.9 - 11.1 mg/dLRemisol Chem Chloride [Moles/Vol]107 mmol/AXhdlhj301 - 111 mmol/LRemisol ChemCO2 [Moles/Vol] 23 mmol/GBplmqo50 - 31 mmol/LRemisol ChemCreatinine [Mass/Vol]0.6 mg/dLNormal0.5 - 1.3 mg/dLRemisol KjyruEIJ489 mL/min/1.73 b4Ephwlv>=59mL/min/1.73 j3Mjxxiwk ChemGlobulin (S) [Mass/Vol]3.7 g/dLNormal1.4 - 4.0 gm/dLRemisol ChemGlucose [Mass/Vol]121 mg/sEGmrpry78 - 199 mg/dLRemisol ChemLipase [Catalytic activity/Vol]8 U/LLow13 - 58 unit/LRemisol ChemMagnesium [Mass/Vol]1.8 mg/dL Normal1.3 - 2.4 mg/dLRemisol ChemPotassium [Moles/Vol]4.0 mmol/LNormal3.5 - 5.3 mmol/LRemisol ChemProtein [Mass/Vol]7.9 g/dLHigh6.0 - 7.8 gm/dLRemisol Chem Sodium [Moles/Vol]138 mmol/PIkgsjh093 - 145 mmol/LRemisol ChemTroponin HSpg/mL Low10.10 - 27.10 pg/mLRemisol ChemComment on above:Interpretive Data: The 95% CI (Confidence Interval) PPV (Positive Predictive Value) for myocardial infarction in females is 38 pg/mL, in males 51 pg/mL. The results should be used in conjunction withclinical conditions of myocardial infarction. (Access High Sensitivity Troponin I Instructions For Use, Apple Abhi, May 2018)Urea nitrogen [Mass/Vol]13 mg/dLNormal5 - 21 mg/dLRemisol ChemUrea nitrogen/Creatinine [Mass ratio]22 mg/lyRsrl31 - 20Remisol ChemED Clinical Summaryon [id number] Clinical SummaryED Clinical Summary [place] [id number] ED Clinical Summary Person Information Name: PRUDENCIO JARAMILLO [facility]etal/[facility] Age: 29 Years : 1995 Sex: Female Language: Burundian PCP: ELIZABETH CRUZ CNP Marital Status: Visit [...] 11/23/2024 05:18:31 11/23/2024 05:18:31 11/23/2024 05:18:31 ADDRESS: [address] [place] [id number] PHYS DOC NOTES: MEDICAL INFORMATION: Prescriptions Given: New Medications [facility]/pharmacy #[id number], [address] [place], [place] [id number], [phone] ondansetron (Zofran ODT 4 mg Tab-Dis) 1 Tablets By Mouth every 6 hours as needed Nausea/Vomiting. Refills: 0. PATIENT EDUCATION INFORMATION: Instructions: Diarrhea, Adult; Nausea and Vomiting, Adult; Near-Syncope Follow up: With: Address: When: [place] [address] Business (1) In 3 days 11/26/2024 Comments: Return to the emergency room if your vomiting recurs or any new symptoms. DIAGNOSIS: 1:Vomiting and diarrhea; 2:Near syncope; Diarrhea, unspecifiedNormalFisher Bayfield Medical CenterED Note-Physicianon [id number] Note-PhysicianED Note-Physician Basic Information Time Seen: Debra Juan [...] and Complexity of Problems Differential Diagnosis: [] [facility] Data External documents reviewed: [] My EKG interpretation: [] My CT interpretation: [] My X-ray interpretation: [] My Ultrasound interpretation: [] Decision rules/scores evaluated: [] Discussed with: [] Treatment and Disposition ED Course: The patient presented with vomiting and diarrhea and dizziness. More likely her symptomsare due to viral gastroenteritis. Her near syncope is due to dehydration. Blood work reviewed and unremarkable. The patient was given 1 L of normal saline and antiemetic. Her dizziness improved. She was able to ambulate with no symptoms. The patient feels comfortable going home. Will discharge patie nt home with prescription for Zofran and follow-up [...] PRN Nausea/Vomiting, # 12 tab(s), Refills(s) 0, Pharmacy:[facility]/pharmacy #[id number], 155, cm, 11/23/24 3:07:00 EST, Height/Length [...] Lipase Level Magnesium Level Rapid COVID Antigen ([facility]) Troponin 0 Hr. UA with Cult Rflx [...] 3 days 11/26/2024 [place] [address]- Business (1) Additional Instructions: Return to the emergency room if your vomiting recurs or any new symptoms. Patient Education Diarrhea, Adult Nausea and Vomiting, Adult Near-Syncope Problem List/Past Medical History Ongoing Acute pharyngitis Acute URI Clostridium difficile diarrhea Diverticulitis Loss of taste Lumbago Lumbar radiculitis Right otitis media Sinus congestion Historical Appendectomy Depression Migraine Procedure/Surgical History sec (more content not included)...[facility] Comment on above:Result Comment: Electronically Signed By: Debra Juan M.D.\.br\Date and Time Signed: 11/23/2504:31 ESTED Patient Summaryon [id number] Patient SummaryED Patient Summary [address] [address] Patient Discharge Instructions Person Information Name: PRUDENCIO JARAMILLO Age: 29 Years Arrival Date: 11/23/2024 02:56:10 Discharge Diagnosis: 1:Vomiting and diarrhea; 2:Near syncope; Diarrhea, unspecified Primary Care Physician: ELIZABETH CRUZ CNP Provider Information Primary Provider: Debra Juan M.D. Advanced Sheeter Machine Operator:None The exam and treatment you received in the Emergency Department were for an urgent problem and are not intended as complete care. It is important that you follow up with a doctor, nurse practitioner,or physician???s promotions assistant for ongoing care. If your symptoms become worse or you do not improve asexpected and you are unable to reach your usual health care provider, you should return to the Emergency Department. We are available 24 hours a day. CLINTPRUDENCIO WONG has been given the following list of patient education materials, prescriptions and follow-up instructions: Follow-up Instructions: With: Address: When: [place] [address] Business (1) In 3 days 11/26/2024 Comments: [...] opioids can be used to help relieve bckarppc-xo-dmkkoq pain and are often prescribed following a [...] guidance from the Food and Drug Administration (www.fda.gov/Drugs/ResourcesForYou). ??? Visit www.cdc.gov/drugoverdose to learn about the (more content not included)...[facility] HospitalHEMATOLOGYOrdered By: SYSTEM SYSTEM on 84-28-4924Avxfaqxnj/100 WBC (Bld)0.6 %Normal0.0 - 2.0 %Remisol Heme Basophils/Leukocytes Auto (Bld) [Pure # fraction]0.1 E9/LNormal0.0 - 0.2 E9/L Remisol HemeEosinophils (Bld) [#/Vol]0.1 E9/LNormal0.0 - 0.5 E9/LRemisol Heme Eosinophils/100 WBC (Bld)1.5 %Normal0.0 - 8.0 %Remisol HemeErythrocyte distribution width (RBC) [Ratio]14.4 %High10.9 - 14.2 %Remisol HemeHematocrit (Bld) [Volume fraction]42.4 %Xyytrk97.0 - 46.0 %Remisol HemeHemoglobin (Bld) [Mass/Vol]14.3 g/bIZjyzht84.0 - 16.0 gm/dLRemisol HemeLymphocytes (Bld) [#/Vol] 1.2 E9/LNormal1.0 - 4.0 E9/LRemisol HemeLymphocytes/100 WBC (Bld)13.5 %Low14.0 - 50.0 %Remisol HemeMCH (RBC) [Entitic mass]27.8 cgXasfcn92.0 - 34.0 pgRemisol HemeMCHC (RBC) [Mass/Vol]33.7 g/bUPwutrv17.4 - 36.0 gm/dLRemisol HemeMCV (RBC) [Entitic vol]82.3 hRZqjwbp12.0 - 100.0 fLRemisol HemeMonocytes (Bld) [#/Vol]0.4 E9/LNormal0.2 - 1.0 E9/LRemisol HemeMonocytes/100 WBC (Bld)4.4 %Normal4.0 - 14.0 %Remisol HemeNeutrophils (Bld) [#/Vol]7.2 E9/LNormal2.0 - 7.5 E9/LRemisol Heme Neutrophils/100 WBC (Bld)80.0 %High36.0 - 75.0 %Remisol KjvhRulhhbgh178.0 E9/L Djdwej777.0 - 500.0 E9/LRemisol HemePlatelet mean volume (Bld) [Entitic vol]8.4 fLNormal6.4 - 10.8 fLRemisol HemeRBC (Bld) [#/Vol]5.2 E12/LNormal4.3 - 5.9 E12/L Remisol HemeWBC corrected for nucl RBC Auto (Bld) [#/Vol]9.0 E9/LNormal4.0 - 11.0 E9/LRemisol HemeHep Func Panelon 49-69-6291Qnbojdg [Mass/Vol]4.2 g/dLNormal 3.3-5.0Prom[facility] HospitalComment on above:Performed By: #### [id number] #### [facility] [address] [place], [place] [address]Fqbzswc/Globulin (S) [Mass conc ratio]1.6Qyrmgc4.1-2.2FCleveland Clinic Mercy HospitalComment on above:Performed By: #### [id number] #### [facility] [address] [place], [place] [address]XCZ [Catalytic activity/Vol]73 Int._Unit/JGfqzfy00-04RxtalnPromedica Bay Park HospitalComment on above:Performed By: #### [id number] #### [facility] [address] [place] [address]TJP No additional P-5'-P [Catalytic activity/Vol]17 Int._Unit/L Normal6-46Prom[facility] Park HospitalComment on above:Performed By: #### [id number] #### [facility] [address] [place] [address]NNI [Catalytic activity/Vol]18 Int._Unit/LNormal5-43[facility] HospitalComment on above:Performed By: #### [id number] #### [facility] [address] [place] [address]Frfgipdvx [Mass/Vol]0.8 mg/dLNormal0.0-1.1FCleveland Clinic Mercy HospitalComment on above:Performed By: #### [id number] #### [facility] [address] [place] [address]Vvkqcjkek.direct [Mass/Vol]0.0 mg/dLNormal0.0-0.4FCleveland Clinic Mercy HospitalComment on above:Performed By: #### [id number] #### [facility] [address] [place] [address] 16[address]Mjxzexklq.indirect [Mass or moles/Vol]0.8 mg/dLNormal0.1-0.9 [facility] HospitalComment on above:Performed By: #### [id number] #### [facility] [address] [place] [address]Itnihtvh (S) [Mass/Vol]3.7 g/dLNormal1.4-4.0[facility] HospitalComment on above:Performed By: #### [id number] #### [facility] [address] [place] [address] 687[address]Dgcwacf [Mass/Vol]7.9 g/dLHigh6.0-7.8[facility] HospitalComment on above:Performed By: #### [id number] #### [facility] [address] [place], [place] [address]Rrrcrdoke A&B Agon 04-35-7422Snqjdgllva A AgNegativeNormal NegativePromedica Bay Park HospitalComment on above:Performed By: #### [id number] #### [facility] [address] [place], [place] [address]Gwqqzowaaw B AgNegativeNormalNegativePromedica Bay Park HospitalComment on above:Result Comment: Test sensitivity and specificity vary for age group, specimen type, antigen types, and prevalence of disease. Test results must be evaluated in conjunction with other clinical data available to the physician. Individuals who received nasally administered Influenza A vaccine may havepositive test results up to 3 days after vaccination.Performed By: #### [id number] #### [facility] [address] [place], [place] [address]Afdovu Levelon [id number] [Catalytic activity/Vol]8 U/L Tnl71-72ZmiyiaPromedica Bay Park HospitalComment on above:Performed By: #### [id number] #### [facility] [address] [place], [place] [address]RZYWG OTHER TESTSOrdered By: Shanique Jerez on 11-23-2024 Influenzae A AgNegative (11/23/24 3:11 AM)NormalNegativeJEFFERSON COUNTY HOS[facility]ITAL [facility] Man SeroInfluenzae B AgNegative 2 (11/23/24 3:11 AM)NormalNegativeJEFFERSON COUNTY HOSPITAL [facility] Man SeroComment on above:Interpretive Data: Test sensitivity and specificity vary for age group, specimen type, antigen types, and prevalence of disease. Test results must be evaluated in conjunction with other clinical dataavailable to the physician. Individuals who received nasally administered Influenza A vaccine may have positive test results up to 3 days after vaccination.Rapid COV Int NEG CtlPass (11/23/24 3:11 AM)NormalJEFFERSON COUNTY HOSPITAL [facility] Man SeroRapid COV Int POS CtlPass (11/23/24 3:11 AM)NormalJEFFERSON COUNTY HOSPITAL – [facility] Man SeroSARS-CoV+SARS-CoV-2 (COVID-19) Ag IA.rapid Ql (Resp)Not Detected 4 (2/16/25 3:11 AM)NormalNot DetectedJEFFERSON COUNTY HOSPITAL – [facility] Man SeroComment on above:Interpretive Data: The [employer] Veritor System for Rapid Detection of SARS-CoV-2 is a chromatographic digital immunoassay intended for the direct and qualitative detection of SARS-CoV-2 nucleocapsid antigens in nasal swabs from individuals who are suspected of COVID-19 by their healthcare provider withinthe first five days of the onset of [...] of proteins from SARS-CoV-2, not for any otherviruses or pathogens; and, in the [place], this test is only authorized for the duration of the declaration that circumstances exist justifying the authorization of emergency use of in vitro diagnostics for detection and/or diagnosis of the virus that causes COVID-19 under Section 564(b)(1) of the Act,21 U.S.C. 360bbb-3(b)(1), unless the authorization is terminated or revoked sooner.Magnesiumon 24-24-9303Tkjvmsbem [Mass/Vol]1.8 mg/dL Normal1.3-2.4Fisher [facility] Hospital Of BaltimoreComment on above:Performed By: #### [id number] #### [facility] [address] [place], [place] [address]Ynnbi COVID Antigen ([facility])on 75-26-1239Wjcis COV Int NEG Ctl PassNormalPromedica Bay Park HospitalComment on above:Performed By: #### [id number] #### [facility] [address] [place], [place] [address]Ubbdu COV Int POS CtlPassNormHenry County Hospital Comment on above:Performed By: #### [id number] #### [facility] [address] [place], [place] [address]GCZA-VqD+SARS-CoV-2 (COVID-19) Ag IA.rapid Ql (Resp)Not detectedNormalNot DetectedPromedica Bay Park HospitalComment on above:Result Comment: The [employer]??? System for Rapid Detection of SARS-CoV-2 is a chromatographic digital immunoassay intended for the direct and qualitative detection of SARS-CoV-2 nucleocapsid antigens in nasal swabs from individuals who are suspected of COVID-19 by their healthcare provider withinthe first five days of the onset of [...] For in vitro diagnostic use. In the [facility], only for use under an Emergency Use Authorization. In the [facility], this test has not been FDA cleared [...] of proteins from SARS-CoV-2, not for any otherviruses or pathogens; and, in the [place], this test is only authorized for the duration of the declaration that circumstances exist justifying the authorization of emergency use of in vitro diagnostics for detection and/or diagnosis of the virus that causes COVID-19 under Section 564(b)(1) of the Act,21 U.S.C. ??? 360bbb-3(b)(1), unless the authorization is terminated or revoked sooner.Performed By: #### [id number] #### [facility] [address], [place] [address]Rmznbhxr 0 Hr.on 04-00-1341Hckqscns HS<2.89Gde26.10-27.10[facility] Park HospitalComment on above:Result Comment: The 95% CI (Confidence Interval) PPV (Positive Predictive Value) for myocardial infarction in females is 38 pg/mL, in males 51 pg/mL. The results should be used in conjunction with clinical conditions of myocardial infarction. (Access High Sensitivity Troponin I Instructions For Use, Apple Abhi, May 2018)Performed By: #### [id number] #### [facility] [address], [place] [address]NX with Cult Rflxon 14-31-1712Jswclrqal Ql (U)NegativeNormal NegativePromedica Bay Park HospitalComment on above:Performed By: #### [id number] #### [facility] [address], [place] [address]Reodnud (U)TurbidAbnormalClearFCleveland Clinic Mercy Hospital Comment on above:Performed By: #### [id number] #### [facility] [address], [place] [address]Qpymd (U)YellowNormalYellowPromedica Bay Park HospitalComment on above:Result Comment: Microscopic readings are only performed on those samples that meet specific criteria set forth by [facility].Performed By: #### [id number] #### [facility] [address], [place] [address]Fthpliozzu cells.squamous Auto (Urine sed) [#/Area]9-10Invalid Interpretation CodePromedica Bay Park HospitalComment on above:Performed By: #### [id number] #### [facility] [address], [place] [address]Diaflrl Ql (U)NegativeNormalNegativePromedica [facility] Comment on above:Performed By: #### [id number] #### [facility] [address], [place] [address]Bblakorohk Auto test strip (U) [Mass/Vol]TraceAbnormalNegative [facility] HospitalComment on above:Performed By: #### [id number] #### [facility] [address], [place] [address]Znttqnr Auto test strip Ql (U)NegativeNormalNegativePromedica Bay Park HospitalComment on above:Performed By: #### [id number] #### [facility] [address] [place] [address]Semlfarae esterase Auto test strip Ql (U)NegativeNormalNegNorwalk Memorial HospitalComment on above:Performed By: #### [id number] #### [facility] [address] [place] [address]Gzxex Auto Ql (U)4+ CD:[id number] [facility] Medical CenterComment on above:Performed By: #### [id number] #### [facility] [address] [place] [address]Lvyhkpi Auto test strip Ql (U)NegativeNormalNegCoshocton Regional Medical CenterComment on above:Performed By: #### [id number] #### [facility] [address] [place] [address]dB (U)5.5 [pH]Invalid Interpretation Code5.0-9.0[facility] HospitalComment on above:Performed By: #### [id number] #### [facility] [address], [place] [address]Xhmyesw Ql (U)TraceAbnormalNegCoshocton Regional Medical Center Comment on above:Performed By: #### [id number] #### [facility] [address] [place] [address]RNI Ql (U)2-39Khwwixmv2-1QjvxciCleveland Clinic Mercy HospitalComment on above:Performed By: #### [id number] #### [facility] [address] [place] [address]Mgfcohfk gravity (U) [Rel density]1.040Invalid Interpretation Code1.005-1.030[facility] HospitalComment on above:Performed By: #### [id number] #### [facility] [address] [place] [address]Gcblfmdbjqxp (U) [Mass/Vol]2 mg/dLAbnormalNegativePromedica Bay Park HospitalComment on above:Performed By: #### [id number] #### [facility] [address] [place] [address]MRI Auto (Urine sed) [#/Area]1-02Jvdcppmt1-0VqloicCleveland Clinic Mercy HospitalComment on above:Performed By: #### [id number] #### [facility] [address] [place] [address]Lxdb of Urine collection methodClean CatchNoProMedica Flower HospitalComment on above:Performed By: #### [id number] #### [facility] [address] [place] [address]UIEHKIZPDPCtfcpav By: SYSTEM SYSTEM on 96-34-9565Nnkvftwuv Ql (U)NegativeNormalNegativemg/dLJEFFERSON COUNTY HOSPITAL – WAURIKA UA Auto SSClarity (U)Turbid *ABN* (11/23/24 3:54 AM)Invalid Interpretation CodeClearFAMERICAN HOSPITAL ASSOCIATION UA Auto SSColor (U)Yellow 1 (11/23/24 3:54 AM)NormalYellowJEFFERSON COUNTY HOSPITAL – WAURIKA UA Auto SSComment on above:Interpretive Data: Microscopic readings are only performed on those samples that meet specific criteria set forth by [facility].Epithelial cells.squamous Auto (Urine sed) [#/Area]9-10 graded/HPFInvalid Interpretation CodeJEFFERSON COUNTY HOSPITAL – [facility]URI[facility] UA Auto SSGlucose Ql (U)NegativeNormalNegativemg/dLJEFFERSON COUNTY HOSPITAL – [facility] UA Auto SS Hemoglobin Auto test strip (U) [Mass/Vol]Trace mg/dLInvalid Interpretation Code Negativemg/dLFTMC UA Auto SSKetones Auto test strip Ql (U)NegativeNormal Negativemg/dLFTMC UA Auto SSLeukocyte esterase Auto test strip Ql (U)Negative NormalNegativeLeu/uLFT UA Auto SSMucus Auto Ql (U)4+ graded/LPFInvalid Interpretation CodeNegativegraded/LPFFTMC UA Auto SSNitrite Auto test strip Ql (U)NegativeNormalNegativemg/dLFTMC UA Auto SSpH (U)5.5 *NA* (11/23/24 3:54 AM)Invalid Interpretation Code5.0 - 9.0FT UA Auto SSProtein Ql (U)Trace mg/dLInvalid Interpretation CodeNegativemg/dLFTMC UA Auto SSRBC Ql (U) 4-20 graded/HPFInvalid Interpretation Code0-3graded/HPFFTMC UA Auto SSSpecific gravity (U) [Rel density]1.040 *NA* (11/23/24 3:54 AM)Invalid Interpretation Code1.005 - 1.030FT UA Auto SS Urobilinogen (U) [Mass/Vol]2 mg/dLInvalid Interpretation CodeNegativemg/dLFTMC UA Auto SSWBC Auto (Urine sed) [#/Area]6-15 graded/HPFInvalid Interpretation Code0-5graded/HPFFT UA Auto SSURINALYSISOrdered By: Debra Juan on 01-53-8766MH Spec DescClean Catch (11/23/24 3:54 AM)NormalFT UA Auto SSeGFRon 33-49-0243pMCP554 mL/min/1.73 m2 Normal>=59Fisher Sinai Hospital Of BaltimoreComment on above:Performed By: #### [id number] #### [facility] [address], [place] [address]Quoyujcf Cervical or vaginal smear or scraping studyon 39-10-5818WYXZ HealthcareAlanine aminotransferase [Enzymatic activity/volume] in Serum or PlasmaOrdered By: Elizabeth Cruz on 07-50-1618RBU [Catalytic activity/Vol]19 U/L7-52[facility] ShawAlbumin [Mass/volume] in Serum or Plasma by Bromocresol green (BCG) dye binding methoOrdered By: Elizabeth Cruz on 60-35-5558Tnvhxyb BCG dye [Mass/Vol]4.2 g/dL3.5-5.7FGerman HospitalAlkaline phosphatase [Enzymatic activity/volume] in Serum or PlasmaOrdered By: Elizabeth Cruz on 72-45-2160EZO [Catalytic activity/Vol]75 U/F67-202ZnzrplabiSelect Medical [facility] Clinic [facility] Hospital, Edwin ShawAspartate aminotransferase [Enzymatic activity/volume] in Serum or PlasmaOrdered By: Elizabeth Cruz on 50-12-3025NVL [Catalytic activity/Vol]12 U/U45-15JeovogqltSelect Medical [facility] Clinic Rehabilitation Hospital, Edwin ShawBasophils Auto (Bld) [#/Vol]Ordered By: Elizabeth Cruz on 29-92-6923Pwulswdtq (Bld) [#/Vol]0.1 10*3/uL0.0-0.2FGerman HospitalBasophils/100 WBC Auto (Bld)Ordered By: Elizabeth Cruz on 28-06-0316Ebhksazms/100 WBC (Bld)1.1 %. [facility] ShawBilirubin.total [Mass/volume] in Serum or PlasmaOrdered By: Elizabeth Cruz on 67-01-6974Rtrygxgto [Mass/Vol]0.4 mg/dL 0.3-1.0[facility] ShawCalcium [Mass/volume] in Serum or Plasma Ordered By: Elizabeth Cruz on 08-09-8843Zsmgtxu [Mass/Vol]9.4 mg/dL8.6-10.3 [facility] ShawCarbon dioxide, total [Moles/volume] in Serum or PlasmaOrdered By: Elizabeth Cruz on 12-89-5914EJ8 [Moles/Vol]27.3 mmol/L 21.0-31.0[facility] ShawChloride [Moles/volume] in Serum or PlasmaOrdered By: Elizabeth Cruz on 78-31-3262Cflhkafw [Moles/Vol]107 mmol/L 98-107[facility] ShawCholesterol [Mass/volume] in Serum or PlasmaOrdered By: Elizabeth Cruz on 06-65-1874Amodyfykahk [Mass/Vol]196 mg/dL 140-200[facility] ShawComment on above:Chol less than 200 mg/dl low riskChol 201-239 mg/dl borderline riskChol 240 mg/dl and greater high riskCholesterol in LDL Calc [Mass/Vol]Ordered By: Elizabeth Cruz on 12-28-2023 Cholesterol in LDL [Mass/Vol]113 mg/dL0-100[facility] Comment on above:LDL ATP III CLASSIFICATIONLDL less than 100 mg/dL OptimalLDL 100-129 mg/dL Near or above raalbaeECE332-161 mg/dL Borderline highLDL 160-189 mg/dL HighLDL greater than 189 mg/dL Very highCholesterol in VLDL Calc [Mass/Vol]Ordered By: Elizabeth Cruz on 08-09-4068Ggkptnuyjul in VLDL [Mass/Vol] 39 mg/dLSelect Medical [facility] Clinic Rehabilitation Hospital, Edwin ShawCreatinine [Mass/volume] in Serum or PlasmaOrdered By: Elizabeth Cruz on 17-80-1016Sajgcywtym [Mass/Vol]0.58 mg/dL 0.60-1.20[facility] ShawEosinophils Auto (Bld) [#/Vol]Ordered By: Elizabeth Cruz on 89-81-8665Eejgoifghcy (Bld) [#/Vol]0.2 10*3/uL0.0-0.45 [facility] ShawEosinophils/100 WBC Auto (Bld)Ordered By: Elizabeth Cruz on 57-77-7537Jyseavczggj/100 WBC (Bld)2.3 %.[facility] ShawErythrocyte distribution width Auto (RBC) [Ratio]Ordered By: Elizabeth Cruz on 78-87-9919Pyohktfmaym distribution width (RBC) [Ratio]14.4 % 11.9-15.3FGerman HospitalGlobulin Calc (S) [Mass/Vol]Ordered By: Elizabeth Cruz on 42-89-3076Eoyrubwr (S) [Mass/Vol]2.9 g/dLSelect Medical Cleveland Clinic Rehabilitation Hospital, Edwin ShawGlucose [Mass/volume] in Serum or PlasmaOrdered By: Elizabeth Cruz on 78-68-8028Ltvrtmz [Mass/Vol]85 mg/kH06-322YcimnidpjSelect Medical [facility] Clinic Rehabilitation Hospital, Edwin ShawHematocrit Auto (Bld) [Volume fraction]Ordered By: Elizabeth Cruz on 14-44-1137Tneidtevfq (Bld) [Volume fraction]42.5 %34.0-46.4FGerman HospitalHemoglobin [Mass/volume] in BloodOrdered By: Elizabeth Cruz on 65-94-4713Evstjpoasx (Bld) [Mass/Vol]13.4 g/dL11.8-15.4FGerman HospitalLeukocytes [#/volume] corrected for nucleated erythrocytes in Blood by Automated counOrdered By: Elizabeth Cruz on 42-97-7981VIR corrected for nucl RBC Auto (Bld) [#/Vol]9.6 10*3/uL3.8-11.6FGerman Hospital Lymphocytes Auto (Bld) [#/Vol]Ordered By: Elizabeth Cruz on 12-28-2023 Lymphocytes (Bld) [#/Vol]2.9 10*3/uL1.00-4.8[facility] Lymphocytes/100 WBC Auto (Bld)Ordered By: Elizabeth Cruz on 12-28-2023 Lymphocytes/100 WBC (Bld)30.4 %.[facility] ShawMCH Auto (RBC) [Entitic mass]Ordered By: Elizabeth Cruz on 26-15-4809ZWZ (RBC) [Entitic mass] 25.8 pg24.7-34.3FGerman HospitalMCHC Auto (RBC) [Mass/Vol] Ordered By: Elizabeth Cruz on 77-62-3008RFKA (RBC) [Mass/Vol]31.6 g/dL32.0-35.0 [facility] ShawMCV Auto (RBC) [Entitic vol]Ordered By: Elizabeth Cruz on 90-04-1197BMY (RBC) [Entitic vol]81.5 zF74-393WwhnfqyeiSelect Medical [facility] Clinic Rehabilitation Hospital, Edwin ShawMonocytes Auto (Bld) [#/Vol]Ordered By: Elizabeth Cruz on 67-53-5908Ifugrmfio (Bld) [#/Vol]0.6 10*3/uL0.0-0.8[facility] ShawMonocytes/100 WBC Auto (Bld)Ordered By: Elizabeth Cruz on 12-28-2023 Monocytes/100 WBC (Bld)5.9 %.[facility] ShawNeutrophils Auto (Bld) [#/Vol]Ordered By: Elizabeth Cruz on 74-89-4492Jgwzvqhybob (Bld) [#/Vol] 5.8 10*3/uL1.8-7.7FGerman HospitalNeutrophils/100 WBC Auto (Bld)Ordered By: Elizabeth Cruz on 80-23-7189Mfzkmsnbsij/100 WBC (Bld)60.3 %. [facility] ShawNo Panel InformationOrdered By: Elizabeth Cruz on 34-73-0232Cqphaqnel GFR (CKD-EPI)> 60.0 mL/MinSelect Medical [facility] Clinic Rehabilitation Hospital, Edwin ShawPharmacy Creatinine Clearance (ChemN/AFGerman Hospital Nucleated erythrocytes [Presence] in Blood by Automated countOrdered By: Elizabeth Cruz on 90-59-3147Zcihxffqn RBC Auto Ql (Bld)0.0 /100{WBC}0-0.5 [facility] ShawPlatelet mean volume Auto (Bld) [Entitic vol] Ordered By: Elizabeth Cruz on 75-00-9930Nvcctems mean volume (Bld) [Entitic vol] 8.2 fL6.3-10.7FGerman HospitalPlatelets Auto (Bld) [#/Vol] Ordered By: Elizabeth Cruz on 97-27-9631Tgohxqnjl (Bld) [#/Vol]310 10*3/uL 150-450[facility] ShawPotassium [Moles/volume] in Serum or PlasmaOrdered By: Elizabeth Cruz on 32-21-7948Qbetbcrwi [Moles/Vol]4.3 mmol/L 3.5-5.1FGerman HospitalProtein [Mass/volume] in Serum or Plasma Ordered By: Elizabeth Cruz on 10-25-6297Symfais [Mass/Vol]7.1 g/dL6.4-8.9 [facility] ShawRBC Auto (Bld) [#/Vol]Ordered By: Elizabeth Cruz on 44-52-6795PCJ (Bld) [#/Vol]5.22 10*6/uL3.60-5.00Toledo Hospitalerum or plasma albumin/globulin mass ratioOrdered By: Elizabeth Cruz on 67-70-5303Zlvimgw/Globulin [Mass ratio]1.4 {ratio}Toledo Hospitalerum or plasma anion gap determinationOrdered By: Elizabeth Cruz on 79-32-8607Rcodu gap [Moles/Vol]10.0 mmol/L6.0-15.0Toledo Hospitalerum or plasma high density lipoprotein (HDL) cholesterol measurement Ordered By: Elizabeth Cruz on 35-89-0958Cavalhhnkoj in HDL [Mass/Vol]44 mg/dL 23-92[facility], [facility] ShawComment on above:HDL CHOL ATP-III CLASSIFICATION Cardiovascular RiskHDL > or equal to 60 mg/dL LOWHDL < 40 mg/dL HIGHSerum or plasma total cholesterol/high density lipoprotein (HDL) cholesterol mass ratOrdered By: Elizabeth Cruz on 74-47-6859Vyiojreuunh.total/Cholesterol in HDL [Mass ratio]4.5 {ratio}<5.0Toledo Hospitalodium [Moles/volume] in Serum or PlasmaOrdered By: Elizabeth Cruz on 37-24-3943Nhgiqb [Moles/Vol]140 mmol/H373-997BhyumbvatSelect Medical [facility] Clinic Rehabilitation Hospital, Edwin ShawThyrotropin [Units/volume] in Serum or PlasmaOrdered By: Elizabeth Cruz on 42-14-0115PGP Qn 1.14 m[IU]/L0.45-5.33[facility] ShawTriglyceride [Mass/volume] in Serum or PlasmaOrdered By: Elizabeth Cruz on 54-64-0515Tiocxvitpzxx [Mass/Vol]197 mg/dL0-149[facility] ShawComment on above:TRIG ATP III CLASSIFICATIONTRIG less than 150 mg/dL NormalTRIG 150-199 mg/dL Borderline highTRIG 200-500 mg/dL High TRIG greater than 500 mg/dL Very highStandard traceable to the Center for Disease Conrtrol and Prevention (CDC) test method.Urea nitrogen [Mass/volume] in Serum or PlasmaOrdered By: Elizabeth Cruz on 56-30-3192Nffv nitrogen [Mass/Vol]12 mg/dL7-25[facility] ShawWBC Auto (Bld) [#/Vol]Ordered By: Elizabeth Cruz on 16-82-6842ZFL (Bld) [#/Vol]9.6 10*3/uL3.8-11.6FGerman HospitalCBC W Auto Differential panel (Bld)on 23-34-3329Lmujrdhzj (Bld) [#/Vol]0.1 10*3/uL0.0 - 0.2 K/uLBON SECOURS FORT HAMILTON HOSPITALBasophils/100 WBC (Bld)0.6 %B[facility] HAMIL[facility] HOSPITALEosinophils (Bld) [#/Vol]0.2 10*3/uL0.0 - 0.7 K/uLBON SECOURS FORT HAMILTON HOSPITAL Eosinophils/100 WBC (Bld)1.9 %[facility] HAMIL[facility] HOSPITALErythrocyte distribution width (RBC) [Ratio]14.7 %High11.5 - 14.5 %[facility] SECMERCER COUNTY COMMUNITY HOSPITALHematocrit (Bld) [Volume fraction]37.6 %37.0 - 47.0 %[facility] SECMERCER COUNTY COMMUNITY HOSPITALHemoglobin (Bld) [Mass/Vol]12.2 g/dL12.0 - 16.0 g/dLBON SECACADIA-ST. [facility] HEALTHInterpretation and review of laboratory resultsAbnormalBON SECOURS FORT HAMILTON HOSPITALLymphocytes (Bld) [#/Vol]3.2 10*3/uL1.0 - 4.8 K/uLBON SECOURS CHILLICOTHE HOSPITALY CLERMONT COUNTY HOSPITALLymphocytes/100 WBC (Bld)26.4 %[facility]OSPITALH (RBC) [Entitic mass]26.4 pgLow27.0 - 31.[address] ELIZABETH HOSPITALHC (RBC) [Mass/Vol]32.4 %Low33.0 - 37.0 %[facility]ETH HOSPITALV (RBC) [Entitic vol]81.4 fL79.4 - 94.8 fLBON SECMERCER COUNTY COMMUNITY HOSPITALMonocytes (Bld) [#/Vol]0.8 10*3/uL0.2 - 0.8 K/uLBON SECOURS MERCY HEALTHMonocytes/100 WBC (Bld)6.5 %[facility] HEALTHNeutrophils (Bld) [#/Vol]7.7 10*3/uLHigh1.4 - 6.5 K/uLBON SECOURS MERCY HEALTHPlatelets (Bld) [#/Vol]278 10*3/uL130 - 400 K/uLBON SECOURS MERCY HEALTHRBC (Bld) [#/Vol]4.62 10*6/uLBON SECOURS MERCY HEALTHSegmented neutrophils/100 WBC (Bld)64.6 %[facility] HEALTHWBC (Bld) [#/Vol]12.0 10*3/uLHigh4.8 - 10.8 K/uLBON SECOURS CHILLICOTHE HOSPITALY HEALTHBON SEC[facility]OT[facility]OSPITALY HEALTHComprehensive metabolic 2000 panelon 00-80-2905Miqajmk [Mass/Vol]3.9 g/dL3.5 - 4.6 g/dLBON SECOURS MERCY HEALTHALP [Catalytic activity/Vol]91 U/L40 - 130 U/LBON SECOURS MERCY HEALTHALT [Catalytic activity/Vol]15 U/L0 - 33 U/LBON [facility]RS MERCY HEALTHAnion gap [Moles/Vol]12 mmol/LBON SECOURS MERCY HEALTHAST [Catalytic activity/Vol]27 U/L0 - 35 U/LBON [facility] HEALTHBilirubin [Mass/Vol]mg/dL0.2 - 0.7 mg/dLBON SECOURS MERCY HEALTHCalcium [Mass/Vol]9.4 mg/dL8.5 - 9.9 mg/dLBON SECOURS MERCY HEALTHChloride [Moles/Vol]104 mmol/LBON SECOURS MERCY HEALTHCO2 [Moles/Vol]24 mmol/LBON SECOURS MERCY HEALTHCreatinine [Mass/Vol]0.56 mg/dL0.50 - 0.90 mg/dLBON SECOURS MERCY HEALTHGFR/1.73 sq M.predicted among non-blacks MDRD (S/P/Bld) [Vol rate/Area]60 - PINFBON SECOURS CHILLICOTHE HOSPITALY HEALTHComment on above:Pediatric calculator link https://www.kidney.org/professionals/kdoqi/gfr_calculatorped Effective Jul 10, 2022 [...] that affects renal tubular secretion. Globulin (S) [Mass/Vol]3.2 g/dL2.3 - 3.5 g/dLBON KINDRED [facility]OSPITAL LIMAGlucose [Mass/Vol]89 mg/dL70 - 99 mg/dLBON KINDRED [facility]OSPITAL LIMAPotassium [Moles/Vol]3.8 mmol/LBON K[facility]DR[facility]OSPITAL LIMAProtein [Mass/Vol]7.1 g/dL6.3 - 8.0 g/dLBON KINDR[facility]ITAL LIMASodium [Moles/Vol]140 mmol/LBON [facility]ITAL LIMAUrea nitrogen [Mass/Vol]15 mg/dL6 - 20 mg/dLBON KINDRED [facility]OSPITAL LIMALipaseon 89-96-2352Qtvtws [Catalytic activity/Vol]23 U/L12 - 95 U/LBON [facility] LIMANo Panel Informationon 00-00-6317UWR [facility]OSPITALCT Creatinineon 60-51-4611Pfurznnlygzqsd and review of laboratory resultsNormalBON [facility] CREATININE WHOLE BLOOD0.6BON SPEARFISH SURGERY CENTERTroponinon 33-28-8337Mzwcufgh T.cardiac [Mass/Vol]ng/mL0.000 - 0.010 ng/mL [facility] HEALTHComment on above:Methodology by Troponin T.Troponin T.cardiac [Mass/Vol]on 09-23-4064UHU [facility] LIMAUS ABDOMEN LIMITEDon 81-51-8529Bqblzzncudxezl. No gallbladder wall thickening or pericholecystic fluid. Mildly dilated common duct at 8.1 mm. [facility] RADIOLOGYEXAMINATION: RIGHT UPPER QUADRANT ULTRASOUND 05/18/2023 8:47 pm [...] No evidence of right upper quadrant ascites. Kirsten Lloyd MD - 05/18/2023 EXAMINATION: RIGHT UPPER QUADRANT [...] Mildly dilated common duct at 8.1 mm. [facility] HEALTHRadiology Study observation (narrative)[facility] HEALTHUS ABDOMEN LIMITEDOrdered By: Kirsten Pardo on 07-73-3863TDDCOMMUNITY HEALTH SYSTEMS Work Phone: [phone]-13 PCR (CVDTBH)on 04-43-2719NMTF-CoV-2 (COVID- 19) RNA HILDA+probe Ql (Unsp spec)Not detectedNormalNOT DETECTEDThe [facility] HospitalComment on above:Result Comment: This test is not yet approved or cleared by the [place] FDA. When there are no FDA-approved or cleared tests available, and other criteria are met, FDA can make tests available under an emergency access mechanism called an Emergency Use Authorization (EUA). The EUA for this test is supported by the [employer] Helper of Health and Human Service's (HHS's) declaration [...] of clinical signs and symptoms consistent with SARS-CoV-2.Performed By: #### CBC #### [facility] [address] [address] [address] Zari Johnston AUTO DIFFon 48-98-3075RMMZ #0.0 103/ulNormal0.0-0.1The [facility] HospitalComment on above:Performed By: #### CBC ####[facility] [address] [address]DrStewart ButcherBasophils/100 WBC (Bld)0.4 %Normal0.2-2.0The [facility] HospitalComment on above:Performed By: #### CBC ####[facility] [address] [address] ChangEO #0.3 103/ulNormal0.0-0.7The [facility] HospitalComment on above:Performed By: #### CBC ####[facility] [address] [address]Dr.Yilan Richardsonosinophils/100 WBC (Bld)2.9 %Normal 0.9-7.0The [facility] HospitalComment on above:Performed By: #### CBC ####[facility] [address] [address]DrStewart Butcher Erythrocyte distribution width (RBC) [Ratio]13.9 %Acihuc58.0-15.0The [facility] [address] Mary Hospitalment on above:Performed By: #### CBC ####[facility] [address] [place], [place] [address]DrStewart ButcherHematocrit (Bld) [Volume fraction]38.4 %Hrqwcq68.0-48.0The [facility] HospitalComment on above:Performed By: #### CBC ####[facility] [address] [address]Dr.Zari ButcherHemoglobin (Bld) [Mass/Vol]12.0 g/dL Trmtxt19.0-16.0The [facility] HospitalComment on above:Performed By: #### CBC ####[facility] [address] [place], [place] [address]Dr. Zari ButcherIG #0.03 10e3/ulNormal0.00-0.03The [facility] HospitalComment on above: Performed By: #### CBC ####[facility] [address] [place], [place] [address]Dr.Franchescacarolyn ButcherIG %0.3 %Normal0.0-0.5The [facility] HospitalComment on above:Performed By: #### CBC ####[facility] [address] [place], [place] [address]Dr.Franchescacarolyn ChangLYMPH #2.9 103/ulNormal1.2-3.8The [facility] HospitalComment on above:Performed By: #### CBC ####[facility] [address] [place], [place] [address]Dr. Franchescacarolyn HadleyLymphocytes/100 WBC (Bld)30.5 %Eecaap44.5-60.0The [facility] Comment on above:Performed By: #### CBC ####[facility] [address] [place], [place] [address]Dr.Zari ButcherMANUAL DIFF REQNONormalThe [facility] HospitalComment on above:Performed By: #### CBC ####[facility] [address] [place], [place] [address]Dr.Zari ButcherMANHATTAN PSYCHIATRIC [facility] (RBC) [Entitic mass]25.8 pgCritically low26.7-34.0The [facility] HospitalComment on above:Performed By: #### CBC ####[facility] Fkatgmbbee49[address]10 [address] [place], [place] [address]Dr.Zari ButcherAMSTERDAM MEMORIAL [facility] (RBC) [Mass/Vol]31.3 g/dLNormal 29.9-35.2The [facility] HospitalComment on above:Performed By: #### CBC ####[facility] Dasfnkjf[address] [place], [place] [address]Dr. Franchsecacarolyn ButcherMCV (RBC) [Entitic vol]82.4 yZGishxd04.0-99.0The [facility] Comment on above:Performed By: #### CBC ####[facility] Aaz[address] [place], [place] [address]Dr.Zari ButcherMONO #0.5 103/ulNormal0.3-0.8 The [facility] HospitalComment on above:Performed By: #### CBC ####[facility] Zaehx[address]ty[address] [place], [place] [address]Dr.Zari Butcher Monocytes/100 WBC (Bld)5.5 %Normal1.7-12.0The [facility] HospitalComment on above: Performed By: #### CBC ####[facility] Uzyilzxy[address] [place], [place] [address]Dr.Zari ButcherNEUT #5.7 103/ulNormal1.4-6.5The [facility] HospitalComment on above:Performed By: #### CBC ####[facility] H[address] [place], [place] [address]Dr.Zari ButcherNeutrophils/100 WBC (Bld)60.4 %Vaufzq10.0-75.0The [facility] HospitalComment on above:Performed By: #### CBC ####[facility] [address] [place], [place] [address]Dr.Zari ButcherPlatelet mean volume (Bld) [Entitic vol]10.3 fLNormal9.5-13.5 The [facility] HospitalComment on above:Performed By: #### CBC ####[facility] In[address]ylwum[address] [place], [place] [address]Dr.Zari VgjkpNXO312 103/wsQtglby086-458Bzi [facility] HospitalComment on above:Performed By: #### CBC ####[facility] Glr[address]udcu[address] [place], [place] [address]DrFrancesca ButcherRBC4.66 106/ulNormal4.20-5.40The [facility] HospitalComment on above: Performed By: #### CBC ####[facility] [address] [address]DrStewart ButcherWBC9.5 103/ulNormal4.0-11.0The [facility] HospitalComment on above:Performed By: #### CBC ####[facility] [address] [address]DrStewart ButcherCovid-19 PCR (CVDTBH)on 29-06-5320SIQH-CoV-2 (COVID-19) RNA HILDA+probe Ql (Unsp spec)Not detectedNormalNOT DETECTEDThe [facility] HospitalCommclaren [place] on above:Result Comment: This test is not yet approved or cleared by the [place] FDA. When there are no FDA-approved or cleared tests available, and other criteria are met, FDA can make tests available under an emergency access mechanism called an Emergency Use Authorization (EUA). The EUA for this test is supported by the [employer] of Health and Human Service's (HHS's) declaration [...] of clinical signs and symptoms consistent with SARS-CoV-2.Performed By: #### CVDTBH #### [facility] [id number] Zari ButcherPREJuma QUANT HCGon 29-27-4592YTT QUANT<1NormalCleveland Clinic Comment on above:Performed By: #### PREGQNT ####[facility] [address] [address]Dr. Zari Nunez RANGESEE BELOWNoTuscarawas HospitalComment on above:Result Comment: 5-50 0.2-1 WEEK 50-500 1-2 WEEKS 100-5,000 2-3 WEEKS 500-10,000 3-4 WEEKS 1,000-50,000 4-5 WEEKS 10,000- 100,000 5-6 WEEKS 15,000-200,000 6-8 WEEKS 10,000-100,000 2-3 MONTHSPerformed By: #### PREGQNT ####[facility] [address] [address]Dr. Zari Tovar AUTO DIFFon 25-87-0525CZHQ #0.0 103/ulNormal0.0-0.1 [facility] ClinicComment on above:Performed By: #### CBC #### [facility] [address] [address] [address] Zari ButcherBasophils/100 WBC (Bld)0.3 %Normal0.2-2.0[facility] Comment on above:Performed By: #### CBC #### [facility] [address] [address] [address] Zari Turner #0.8 103/ulCritically high0.0-0.7The [facility] HospitalComment on above:Performed By: #### CBC #### [facility] [address] [address] [address] Zari Richardsonosinophils/100 WBC (Bld)7.5 %Critically high0.9-7.0[facility] ClinicComment on above:Performed By: #### CBC #### [facility] [address] [address] [address] Zari Richardsonrythrocyte distribution width (RBC) [Ratio]14.5 %Iwwbzd76.0-15.0 The [facility] HospitalComment on above:Performed By: #### CBC #### [facility] [address] [address] [address] Zari ButcherHematocrit (Bld) [Volume fraction]27.9 %Critically low36.0-48.0 The [facility] HospitalComment on above:Performed By: #### CBC #### [facility] [address] [address] [address] Zari ButcherHemoglobin (Bld) [Mass/Vol]9.0 g/dLCritically low12.0-16.0The [facility] HospitalComment on above:Performed By: #### CBC #### [facility] [address] [place] [address] Dr. Zari Nash #0.06 10e3/ulCritically high0.00-0.03The [facility] Comment on above:Performed By: #### CBC #### [facility] [address] [place] [address] Dr. Zari Nash %0.6 %Critically high0.0-0.5The [facility] HospitalComment on above:Performed By: #### CBC #### [facility] [address] [place] [address] Dr. Zari Chavez #2.6 103/ulNormal1.2-3.8The [facility] HospitalComment on above:Performed By: #### CBC #### [facility] [address] [place] [address] Dr. Zari Hollandhocytes/100 WBC (Bld)24.3 %Jurbkd41.5-60.0The [facility] HospitalComment on above:Performed By: #### CBC #### [facility] [address] [place] [address] Dr. Zari SmallUAL DIFF REQNONormalThe [facility] HospitalComment on above: Performed By: #### CBC #### [facility] [address] [place] [address] Dr. Zari Herrera (RBC) [Entitic mass]28.0 fgDfqfow49.7-34.0The [facility] HospitalComment on above:Performed By: #### CBC #### [facility] [address] [place] [address] Dr. Zari Herrera (RBC) [Mass/Vol]32.3 g/vXXjensc86.9-35.2The [facility] HospitalComment on above:Performed By: #### CBC #### [facility] [address] [address] [address] Zari HerreraV (RBC) [Entitic vol]86.9 xMFaimgj77.0-99.0The [facility] HospitalComment on above:Performed By: #### CBC #### [facility] [address] [place] [address] Dr. Zari Alvarez #0.6 103/ulNormal0.3-0.8The [facility] HospitalComment on above:Performed By: #### CBC #### [facility] [address] [place] [address] Dr. Zari Bennettocytes/100 WBC (Bld)5.3 %Normal1.7-12.0The [facility] Comment on above:Performed By: #### CBC #### [facility] [address] [place] [address] Dr. Zari Miller #6.7 103/ulCritically high1.4-6.5The [facility] Comment on above:Performed By: #### CBC #### [facility] [address] [place] [address] Dr. Zari Faustinutrophils/100 WBC (Bld)62.0 %Tztkoy33.0-75.0The [facility] HospitalComment on above:Performed By: #### CBC #### [facility] [address] [place] [address] Dr. Zari Colemanlet mean volume (Bld) [Entitic vol]10.5 fLNormal9.5-13.5The [facility] HospitalComment on above:Performed By: #### CBC #### [facility] [address] [place] [address] Dr. Zari ButcherPLT286 103/iiBozgvv410-992Fkn [facility] HospitalComment on above: Performed By: #### CBC #### [facility] [address] [place] [address] Dr. Zari ButcherRBC3.21 106/ulCritically low4.20-5.40The [facility] HospitalComment on above:Performed By: #### CBC #### [facility] [address] [address] [address] Zari ButcherWBC10.7 103/ulNormal4.0-11.0The [facility] HospitalComment on above:Performed By: #### CBC #### [facility] [address] [address] [address] Zari ButcherPROF CHEM 8 (BAS METB)on 35-47-0212Xgwne gap [Moles/Vol]11.1 mmol/LNormalThe [facility] HospitalComment on above:Performed By: #### BMP ####[facility] [address] [address]Dr. Zari ChangCalcium [Mass/Vol]8.4 mg/dLCritically low8.5-10.1The [facility] HospitalComment on above:Performed By: #### BMP ####[facility] Evxezjqdyp[address] [place], [place] [address]Dr.Zari ChangChloride [Moles/Vol]105 mmol/HWmroqr00-568Yij [facility] HospitalComment on above:Performed By: #### BMP ####[facility] Ynjxlrerpc[address] [place], [place] [address]Dr.Zari ChangCO2 [Moles/Vol]26.2 mmol/OFymbzx31.0-32.0The [facility] HospitalComment on above:Performed By: #### BMP ####[facility] Afkbhudsry[address] [place], [place] [address]Dr.Zari ChangCreatinine [Mass/Vol]0.49 mg/dLCritically low0.55-1.02The [facility] HospitalComment on above:Performed By: #### BMP ####[facility] Kzxaokutsp[address] [place], [place] [address]Dr.Franchescalan ChangEGFR-AF ST LUCIAN>60Normal>=60The [facility] HospitalComment on above:Performed By: #### BMP ####[facility] Vxrlzbnmic[address] [place], [place] [address]Dr.Franchescalan ChangEGFR-NON AF ST LUCIAN>60Normal>=60The [facility] HospitalComment on above:Performed By: #### BMP ####[facility] [address] [address]Dr. Zari ChangGlucose [Mass/Vol]75 mg/xSCzsaey70-811Wam [facility] HospitalComment on above:Performed By: #### BMP ####[facility] [address] [address]Dr.Zari ChangPotassium [Moles/Vol]3.3 mmol/L Critically low3.5-5.1The [facility] HospitalComment on above:Performed By: #### BMP ####[facility] [address] [address]Dr. Zari ChangSodium [Moles/Vol]139 mmol/QZskjhy639-334Uto [facility] HospitalComment on above:Performed By: #### BMP ####[facility] [address] [address]Dr.Zari ChangUrea nitrogen [Mass/Vol]7.0 mg/dLNormal 7.0-18.0The [facility] HospitalComment on above:Performed By: #### BMP ####[facility] [address] [address]DrFrancesca Hameed ChangUrea nitrogen/Creatinine [Mass ratio]14.3 mg/mgNormalThe [facility] HospitalComment on above:Performed By: #### BMP ####[facility] [address] [address]Dr.Yilan JohnstonC AUTO DIFFon 78-50-6453DUCT #0.0 103/ulNormal0.0-0.1The [facility] HospitalComment on above: Performed By: #### CBC #### [facility] [address] [address] [address] Zari Holdenphils/100 WBC (Bld)0.3 %Normal0.2-2.0The [facility] Comment on above:Performed By: #### CBC #### [facility] [address] [address] [address] Yilan ChangEO #0.2 103/ulNormal0.0-0.7The [facility] HospitalComment on above: Performed By: #### CBC #### [facility] [address] [place] [address] Dr. Zari Richardsonosinophils/100 WBC (Bld)1.5 %Normal0.9-7.0[facility] Comment on above:Performed By: #### CBC #### [facility] [address] [place] [address] Dr. Zari Richardsonrythrocyte distribution width (RBC) [Ratio]14.9 %Tfwbjr80.0-15.0 The [facility] HospitalComment on above:Performed By: #### CBC #### [facility] [address] [place] [address] Dr. Zari ButcherHematocrit (Bld) [Volume fraction]27.3 %Critically low36.0-48.0 The [facility] HospitalComment on above:Performed By: #### CBC #### [facility] [address] [place] [address] Dr. Zari ButcherHemoglobin (Bld) [Mass/Vol]8.7 g/dLCritically low12.0-16.0The [facility] HospitalComment on above:Performed By: #### CBC #### [facility] [address] [place] [address] Dr. Zari Nash #0.05 10e3/ulCritically high0.00-0.03The [facility] Comment on above:Performed By: #### CBC #### [facility] [address] [place] [address] Dr. Zari Nash %0.4 %Normal0.0-0.5The [facility] HospitalComment on above: Performed By: #### CBC #### [facility] [address] [place] [address] Dr. Zari Chavez #2.9 103/ulNormal1.2-3.8The [facility] HospitalComment on above:Performed By: #### CBC #### [facility] [address] [place] [address] Dr. Zari Brionesmphocytes/100 WBC (Bld)21.6 %Cogpcr17.5-60.0The [facility] HospitalComment on above:Performed By: #### CBC #### [facility] [address] [place] [address] Dr. Zari Green DIFF REQNONormalThe [facility] HospitalComment on above: Performed By: #### CBC #### [facility] [address] [place] [address] Dr. Zari Herrera (RBC) [Entitic mass]27.5 ahUezwec09.7-34.0The [facility] HospitalComment on above:Performed By: #### CBC #### [facility] [address] [place] [address] Dr. Zari Herrera (RBC) [Mass/Vol]31.9 g/aPSuyetz11.9-35.2The [facility] HospitalComment on above:Performed By: #### CBC #### [facility] [address] [place] [address] Dr. Zari Bertrand (RBC) [Entitic vol]86.4 oLVkksom01.0-99.0The [facility] HospitalComment on above:Performed By: #### CBC #### [facility] [address] [place] [address] Dr. Zari Alvarez #0.7 103/ulNormal0.3-0.8The [facility] HospitalComment on above:Performed By: #### CBC #### [facility] [address] [place] [address] Dr. Zari Bennettocytes/100 WBC (Bld)5.5 %Normal1.7-12.0[facility] Comment on above:Performed By: #### CBC #### [facility] [address] [place] [address] Dr. Zari Miller #9.4 103/ulCritically high1.4-6.5The [facility] Comment on above:Performed By: #### CBC #### [facility] [address] [place] [address] Dr. Zari Faustinutrophils/100 WBC (Bld)70.7 %Avnrkf34.0-75.0The [facility] HospitalComment on above:Performed By: #### CBC #### [facility] [address] [place] [address] Dr. Zari ButcherPlatelet mean volume (Bld) [Entitic vol]10.8 fLNormal9.5-13.5The [facility] HospitalComment on above:Performed By: #### CBC #### [facility] [address] [place] [address] Dr. Zari ButcherPLT203 103/pbIewoup681-930Meq [facility] HospitalComment on above: Performed By: #### CBC #### [facility] [address] [place] [address] Dr. Zari ButcherRBC3.16 106/ulCritically low4.20-5.40The [facility] HospitalComment on above:Performed By: #### CBC #### [facility] [address] [place] [address] Dr. Zari ButcherWBC13.3 103/ulCritically high4.0-11.0The [facility] HospitalComment on above:Performed By: #### CBC #### [facility] [address] [place] [address] Dr. Zari Tovar AUTO DIFFon 16-48-4307LLEW #0.1 103/ulNormal0.0-0.1The [facility] HospitalComment on above:Performed By: #### CBC #### [facility] [address] [place] [address] Dr. Zari ButcherBasophils/100 WBC (Bld)0.4 %Normal0.2-2.0The [facility] Comment on above:Performed By: #### CBC #### [facility] [address] [place] [address] Dr. Hameed ChangEO #0.2 103/ulNormal0.0-0.7The [facility] HospitalComment on above: Performed By: #### CBC #### [facility] [address] [address] [address] Zari Richardsonosinophils/100 WBC (Bld)1.3 %Normal0.9-7.0The [facility] Comment on above:Performed By: #### CBC #### [facility] [address] [place] [address] Dr. Zari Richardsonrythrocyte distribution width (RBC) [Ratio]14.6 %Cowxaj83.0-15.0 The [facility] HospitalComment on above:Performed By: #### CBC #### [facility] [address] [place] [address] Dr. Zari ButcherHematocrit (Bld) [Volume fraction]37.8 %Byxmkd15.0-48.0The [facility] HospitalComment on above:Performed By: #### CBC #### [facility] [address] [place] [address] Dr. Zari ButcherHemoglobin (Bld) [Mass/Vol]12.4 g/rDZexqft70.0-16.0The [facility] HospitalComment on above:Performed By: #### CBC #### [facility] [address] [place] [address] Dr. Zari Nash #0.04 10e3/ulCritically high0.00-0.03The [facility] Comment on above:Performed By: #### CBC #### [facility] [address] [place] [address] Dr. Zari Nash %0.3 %Normal0.0-0.5The [facility] HospitalComment on above: Performed By: #### CBC #### [facility] [address] [place] [address] Dr. Zari HollandH #3.2 103/ulNormal1.2-3.8The [facility] HospitalComment on above:Performed By: #### CBC #### [facility] [address] [place] [address] Dr. Zari Brionesmphocytes/100 WBC (Bld)24.6 %Wejsxd42.5-60.0The [facility] HospitalComment on above:Performed By: #### CBC #### [facility] [address] [address] [address] Zari Green DIFF REQNONormalThe [facility] Hospitalment on above: Performed By: #### CBC #### [facility] [address] [address] [address] Zari Herrera (RBC) [Entitic mass]27.8 akHjzmwh60.7-34.0The [facility] HospitalComment on above:Performed By: #### CBC #### [facility] [address] [place] [address] Dr. Zari Herrera (RBC) [Mass/Vol]32.8 g/nNAexkik93.9-35.2The [facility] on above:Performed By: #### CBC #### [facility] [address] [place] [address] Dr. Zari Herrera (RBC) [Entitic vol]84.8 cBMgrbxe50.0-99.0The [facility] Hospitalment on above:Performed By: #### CBC #### [facility] [address] [place] [address] Dr. Zari Alvarez #0.8 103/ulNormal0.3-0.8The [facility] on above:Performed By: #### CBC #### [facility] [address] [place] [address] Dr. Zari Bennettocytes/100 WBC (Bld)6.3 %Normal1.7-12.0[facility] Comment on above:Performed By: #### CBC #### [facility] [address] [address] [address] Zari Miller #8.7 103/ulCritically high1.4-6.5The [facility] Comment on above:Performed By: #### CBC #### [facility] [address] [place] [address] Dr. Zari Faustinutrophils/100 WBC (Bld)67.1 %Wzfzth15.0-75.0[facility] on above:Performed By: #### CBC #### [facility] [address] [address] [address] Zari Pozo mean volume (Bld) [Entitic vol]10.9 fLNormal9.5-13.5The [facility] on above:Performed By: #### CBC #### [facility] [address] [address] [address] Zari ButcherPLT280 103/slNybzqh992-552Znb [facility] on above: Performed By: #### CBC #### [facility] [address] [place] [address] Dr. Zari ButcherRBC4.46 106/ulNormal4.20-5.40[facility] on above:Performed By: #### CBC #### [facility] [address] [place] [address] Dr. Zari ButcherWBC13.0 103/ulCritically high4.0-11.0The [facility] on above:Performed By: #### CBC #### [facility] [address] [place] [address] Dr. Zari Gonzalez URINEon 11-61-7079HLYSXMX URINECulture Observations: NO GROWTH.NormalMary [facility]an Hospital on above:Performed By: #### URCX #### [facility] [address] [place] [address] Dr. Zari ButcherDRUG SCREEN RAPID (URINE)on [id number]YMW [facility] on above:Performed By: #### RUBIGG #### [facility] [address] [place] [address] Dr. Zari ButcherBARNegativeNormalNEGATIVEMary [facility] Hospital on above: Performed By: #### RUBIGG #### [facility] [address] [place] [address] Dr. Zari DelongPNegativeNormalNEGATIVEMary Rut[facility] Hospital on above: Performed By: #### RUBIGG #### [facility] [address] [address] [address] Zari ButcherBZONegativeNormalNEGATIVECleveland ClinicComment on above: Performed By: #### RUBIGG #### [facility] [address] [address] [address] Zari ButcherCOCNegativeNormalNEGATIVECleveland ClinicComment on above: Performed By: #### RUBIGG #### [facility] [address] [address] [address] Zari AguilarProMedica Fostoria Community HospitalComment on above: Result Comment: AMP (Amphetamine): 500ng/mL, BAR (Barbituates): 200 ng/mL, BZO (Benzodiazepines): 150 ng/mL, BUP (Buprenorphine): 10 ng/mL, AILYN (Cocaine): 150 ng/mL, mAMP (Methamphetamine): 500 ng/mL, MTD (Methadone): 200 ng/mL, OPI (Opiates): 100 ng/mL, OXY (Oxycodone): 100 ng/mL, PCP (Phencyclidine): 25 ng/mL, PPX (Propoxyphene): 300 ng/mL, THC (Cannabinoids): 50 ng/mL, TCA (Trycyclic Antidepressants): 300 ng/mLPerformed By: #### RUBIGG #### [facility] [address] [place] [address] Dr. Zari ButcherDRUG CUT HEADERDRUG CLASS TEST SYSTEM CUT-OFF CONCENTRATIONS ARE FOLLOWS:NormalThe [facility] HospitalCommclaren [place] on above:Performed By: #### RUBIGG #### [facility] [address] [place] [address] Dr. Zari ButchermAMPNegativeNormalNEGATIVECleveland ClinicCommclaren [place] on above: Performed By: #### RUBIGG #### [facility] [address] [place] [address] Dr. Zari ButcherMTDNegativeNormalNEGATIVECleveland ClinicCommclaren [place] on above: Performed By: #### PURVIIGG #### [facility] [address] [address] [address] Zari ButcherOPINegativeNormalNEGATIVECleveland ClinicComment on above: Performed By: #### RUBIGG #### [facility] [address] [place] [address] Dr. Zari ButcherOXYNegativeNormalNEGATIVECleveland ClinicCommclaren [place] on above: Performed By: #### RUBIGG #### [facility] [address] [place] [address] Dr. Zari ButcherPCPNegativeNormalNEGATIVEMary [facility] on above: Performed By: #### RUBIGG #### [facility] [address] [place] [address] Dr. Zari ButcherPPXNegativeNormalNEGATIVEMary [facility] on above: Performed By: #### RUBIGG #### [facility] [address] [place] [address] Dr. Zari ButcherTCANegativeNormalNEGATIVEMary [facility] Hospital on above: Performed By: #### RUBIGG #### [facility] [address] [place] [address] Dr. Zari ButcherTHCNegativeNormalNEGATIVEMary Rut[facility] Hospital on above: Performed By: #### RUBIGG #### [facility] [address] [place] [address] Dr. Zari ButcherTYPE AND SCREENon [id number] AND SCREENNegativeNormalThe [facility] on above:Performed By: #### TNS ####[facility] [address] [address]Dr.Yilan Anaya (CLEAN/CATCH) SEATER ASSEMBLER/MICRO IF IND.on 23-13-9237Tcgkdokdj Ql (U)NegativeNormal NEGATIVECleveland ClinicCommclaren [place] on above:Performed By: #### CVDTBH #### [facility] [address] [place] [address] Dr. Zari Colbertarity (U)CLEARNormalCLEARCleveland ClinicComment on above: Performed By: #### CVDTBH #### [facility] [address] [address] [address] Zari Oroscolor (U)LT. YELLOWNormalYELLOWCleveland ClinicComment on above:Performed By: #### CVDTBH #### [facility] [address] [address] [address] Zari ButcherGlucose Ql (U)NegativeNormalNEGATIVECleveland ClinicComment on above:Performed By: #### CVDTBH #### [facility] [address] [address] [address] Zari ButcherHemoglobin Ql (U)NegativeNormalNEGSt. Elizabeth Hospital Comment on above:Performed By: #### CVDTBH #### [facility] [address] [address] [address] Zari ButcherKetones Ql (U)TRACEAbnormalNEGATIVECleveland ClinicComment on above:Performed By: #### CVDTBH #### [facility] [address] [address] [address] Zari ButcherLEUKOCYTESMODERATEAbnormalNEGATIVECleveland ClinicComment on above:Performed By: #### CVDTBH #### [facility] [address] [place] [address] Dr. Zari ButcherNitrite Ql (U)NegativeNormalNEGATIVECleveland ClinicComment on above:Performed By: #### CVDTBH #### [facility] [address] [address] [address] Zari ButcherpH (U)6.5 [pH]Normal5-9The [facility] HospitalComment on above: Performed By: #### CVDTBH #### [facility] [address] [address] [address] Zari ButcherSPEC GRAVITY1.469Qlgobh7.005-<=1.025The [facility] HospitalComment on above:Performed By: #### CVDTBH #### [facility] [address] [address] [address] Zari ButcherUA PROTEINNegativeNormalNEGRUTHERFORD REGIONAL HEALTH SYSTEM/ TRACECleveland Clinic Comment on above:Performed By: #### CVDTBH #### [facility] [address] [address] [address] Zari GEORGE INDINDICATEDOhioHealth Grant Medical CenterComment on above: Performed By: #### CVDTBH #### [facility] [address] [address] [address] Zari Jorge Qn (U)1.0 {Ashvin'U}/dLNormal0.2 - 1.0The [facility] HospitalComment on above:Performed By: #### CVDTBH #### [facility] [address] [address] [address] Zari DENNEY ONLYon [id number]FZBG SEEN Cleveland ClinicComment on above:Performed By: #### CVDTBH #### [facility] [address] [address] [address] Zari Biswas identified Cx Nom (U)INDICATEDOhioHealth Grant Medical CenterComment on above:Performed By: #### CVDTBH #### [facility] [address] [address] [address] Zari Canales SEENNormalNONE SEENFairfield Medical Centerment on above:Performed By: #### CVDTBH #### [facility] [address] [address] [address] Zari Lynch LM Nom (Urine sed)NONE SEENNormalNONE SEENMary [facility]an Hospital on above:Performed By: #### CVDTBH #### [facility] [address] [address] [address] Hameed ChangEpithelial cells LM Ql (Urine sed)MANYAbnormalNONE SEEN /RAREThe [facility] on above:Performed By: #### CVDTBH #### [facility] [address] [address] [address] Zari McclellanLAbnormalNONE SEENCleveland ClinicCommclaren [place] on above:Performed By: #### CVDTBH #### [facility] [address] [place] [address] Dr. Zari ButcherAwdscOQL5-8Hbfrxkoo5-8Dlw [facility] HospitalComment on above:Performed By: #### CVDTBH #### [facility] [address] [place] [address] Dr. Zari ButcherIfmtbTJM08-94IsfnfiouNAJD SEENThe [facility] HospitalComment on above: Performed By: #### CVDTBH #### [facility] [address] [place] [address] Dr. Zari ButcherCovid-19 PCR ([facility])on [id number]-CoV-2 (COVID-19) RNA HILDA+probe Ql (Unsp spec)Not detectedNormalNOT DETECTEDThe [facility] Comment on above:Result Comment: When diagnostic testing is negative, the [...] for this test is supported by the [place] of Health and Human Service's declaration that circumstances exist to justify the emergency use of in vitro diagnostics for the detection and/or diagnosis of the virus that causes COVID-19. This EUA will remain in effect for the duration of the COVID-19 declaration justifying emergency of IVDs, unless it is terminated or revoked by the FDA (after which the test may no longer be used).Performed By: #### CVDTBH #### [facility] [address] [place] [address] Dr. Zari ButcherVAGINITIS/VAGINOSIS DNA PROBEon [id number] speciesNegative NormalNegativeThe [facility] HospitalComment on above:Performed By: #### CBC #### [facility] [address] [place] [address] Dr. Zari Merritterella vaginalisPositiveAbnormalNegativeThe [facility] HospitalComment on above:Performed By: #### CBC #### [facility] [address] [address] [address] Zari ButcherTrichomonas vaginalisNegativeNormalNegativeThe [facility] Comment on above:Performed By: #### CBC #### [facility] [address] [address] [address] Zari ButcherGROUP B STREP CULTUREon 08-29-2022. agalactiae Ag Ql (Unsp spec) Culture Observations: NEGATIVE FOR GROUP B STREPTOCOCCUS.NormalThe [facility] HospitalComment on above: Performed By: #### GBSCX #### [facility] [address] [address] [address] Zari ButcherAMYLASEon [id number] [Catalytic activity/Vol]47 U/LNormal 25-115The [facility] HospitalComment on above:Performed By: #### CMP, MEGHA, LIPA ####[facility] [address] [address]Dr. Zari ButcherCBC AUTO DIFFon [id number] #0.0 103/ulNormal0.0-0.1The [facility] HospitalComment on above:Performed By: #### CBC ####[facility] [address] [address]Dr.Yilan ChangBasophils/100 WBC (Bld)0.2 %Normal0.2-2.0The [facility] HospitalComment on above:Performed By: #### CBC ####[facility] [address] [address]Dr.Yilan ChangEO #0.2 103/ulNormal0.0-0.7The [facility] HospitalComment on above:Performed By: #### CBC ####[facility] [address] [address]Dr.Yilan ChangEosinophils/100 WBC (Bld)1.5 %Normal 0.9-7.0The [facility] HospitalComment on above:Performed By: #### CBC ####[facility] [address] [place], [place] [address]Dr.Franchescacarolyn Butcher Erythrocyte distribution width (RBC) [Ratio]14.2 %Ikuogw00.0-15.0The [facility] HospitalComment on above:Performed By: #### CBC ####[facility] [address] [place], [place] [address]Dr.Franchescacarolyn HadleyHematocrit (Bld) [Volume fraction]35.6 %Critically low36.0-48.0The [facility] HospitalComment on above:Performed By: #### CBC ####[facility] [address] [place], [place] [address]Dr.Zari ButcherHemoglobin (Bld) [Mass/Vol]11.3 g/dL Critically low12.0-16.0The [facility] HospitalComment on above:Performed By: #### CBC ####[facility] [address] [place], [place] [address]Dr. Zari ButcherIG #0.04 10e3/ulCritically high0.00-0.03The [facility] HospitalComment on above:Performed By: #### CBC ####[facility] [address] [place], [place] [address]Dr.Zari ButcherIG %0.3 %Normal0.0-0.5The [facility] HospitalComment on above:Performed By: #### CBC ####[facility] [address] [place], [place] [address]Dr.Zari ButcherLYMPH #1.7 103/ulNormal1.2-3.8The [facility] HospitalComment on above:Performed By: #### CBC ####[facility] [address] [place], [place] [address]Dr. Zari ButcherLymphocytes/100 WBC (Bld)14.5 %Critically low20.5-60.0The [facility] HospitalComment on above:Performed By: #### CBC ####[facility] [address] [place], [place] [address]Dr.Zari ButcherMANUAL DIFF REQ NONormalThe [facility] HospitalComment on above:Performed By: #### CBC ####[facility] [address] [address]Dr. Zari HadleyH (RBC) [Entitic mass]27.2 anKjefdu67.7-34.0[facility] Comment on above:Performed By: #### CBC ####[facility] [address] [address]Dr.Zari HadleyHC (RBC) [Mass/Vol]31.7 g/dL Oilwdt95.9-35.2The [facility] HospitalComment on above:Performed By: #### CBC ####[facility] [address] [place], [place] [address]Dr. Franchescacarolyn ButcherV (RBC) [Entitic vol]85.8 iGLldkps99.0-99.0[facility] Comment on above:Performed By: #### CBC ####[facility] [address] [place], [place] [address]Dr.Zari HadleyMONO #0.7 103/ulNormal0.3-0.8 [facility] ClinicComment on above:Performed By: #### CBC ####[facility] [address] [place], [place] [address]Dr.Zari Hadley Monocytes/100 WBC (Bld)6.2 %Normal1.7-12.0[facility] ClinicComment on above: Performed By: #### CBC ####[facility] [address] [place], [place] [address]Dr.Franchescacarolyn HadleyNEUT #9.1 103/ulCritically high1.4-6.5 [facility] ClinicComment on above:Performed By: #### CBC ####[facility] [address] [place], [place] [address]DrFrancescaZari Hadley Neutrophils/100 WBC (Bld)77.3 %Critically high43.0-75.0[facility] Comment on above:Performed By: #### CBC ####[facility] [address] [place], [place] [address]Dr.Zari HadleyPlatelet mean volume (Bld) [Entitic vol]11.1 fLNormal9.5-13.5The [facility] HospitalComment on above: Performed By: #### CBC ####[facility] [address] [address]Dr.Zari SotvjBMC596 103/jpLnchyb856-053Ynx [facility] HospitalComment on above:Performed By: #### CBC ####[facility] [address] [address]Dr.Zari ButcherRBC4.15 106/ul Critically low4.20-5.40The [facility] HospitalComment on above:Performed By: #### CBC ####[facility] [address] [address]DrFrancesca Hameed BwuozTKO09.8 103/ulCritically high4.0-11.0The [facility] HospitalComment on above:Performed By: #### CBC ####[facility] [address] [address]Dr.Yilan ButcherBASO #0.0 103/ulNormal0.0-0.1The [facility] HospitalComment on above:Performed By: #### CVDTBH #### [facility] [address] [place] [address] Dr. Zari Holdenphils/100 WBC (Bld)0.2 %Normal0.2-2.0The [facility] Comment on above:Performed By: #### CVDTBH #### [facility] [address] [place] [address] Dr. Zari Turner #0.3 103/ulNormal0.0-0.7The [facility] HospitalComment on above: Performed By: #### CVDTBH #### [facility] [address] [place] [address] Dr. Zari Richardsonosinophils/100 WBC (Bld)1.4 %Normal0.9-7.0The [facility] Comment on above:Performed By: #### CVDTBH #### [facility] [address] [address] [address] Yilan ChangErythrocyte distribution width (RBC) [Ratio]14.1 %Bwdezg08.0-15.0 The [facility] HospitalComment on above:Performed By: #### CVDTBH #### [facility] [address] [place] [address] Dr. Zari ButcherHematocrit (Bld) [Volume fraction]38.2 %Qqhwxh91.0-48.0The [facility] HospitalComment on above:Performed By: #### CVDTBH #### [facility] [address] [place] [address] Dr. Zari ButcherHemoglobin (Bld) [Mass/Vol]12.6 g/jLLgucze49.0-16.0The [facility] HospitalComment on above:Performed By: #### CVDTBH #### [facility] [address] [place] [address] Dr. Zari Nash #0.08 10e3/ulCritically high0.00-0.03The [facility] Comment on above:Performed By: #### CVDTBH #### [facility] [address] [place] [address] Dr. Zari Nash %0.5 %Normal0.0-0.5The [facility] HospitalComment on above: Performed By: #### CVDTBH #### [facility] [address] [place] [address] Dr. Zari HollandH #1.8 103/ulNormal1.2-3.8The [facility] HospitalComment on above:Performed By: #### CVDTBH #### [facility] [address] [place] [address] Dr. Zari Brionesmphocytes/100 WBC (Bld)10.1 %Critically low20.5-60.0The [facility] HospitalComment on above:Performed By: #### CVDTBH #### [facility] [address] [place] [address] Dr. Zari ButcherMANUAL DIFF REQNONormalThe [facility] HospitalComment on above: Performed By: #### CVDTBH #### [facility] [address] [address] [address] Zari Herrera (RBC) [Entitic mass]27.6 zrIjruie75.7-34.0The [facility] HospitalComment on above:Performed By: #### CVDTBH #### [facility] [address] [place] [address] Dr. Zari Herrera (RBC) [Mass/Vol]33.0 g/cYMepcvn88.9-35.2The [facility] HospitalComment on above:Performed By: #### CVDTBH #### [facility] [address] [place] [address] Dr. Zari Herrera (RBC) [Entitic vol]83.6 oTWsqcbd87.0-99.0The [facility] HospitalComment on above:Performed By: #### CVDTBH #### [facility] [address] [place] [address] Dr. Zari Alvarez #1.1 103/ulCritically high0.3-0.8ThProMedica Memorial Hospital Comment on above:Performed By: #### CVDTBH #### [facility] [address] [place] [address] Dr. Zari Bennettocytes/100 WBC (Bld)6.1 %Normal1.7-12.0[facility] Comment on above:Performed By: #### CVDTBH #### [facility] [address] [place] [address] Dr. Zari Miller #14.4 103/ulCritically high1.4-6.5ThProMedica Memorial Hospital Comment on above:Performed By: #### CVDTBH #### [facility] [address] [place] [address] Dr. Zari Faustinutrophils/100 WBC (Bld)81.7 %Critically high43.0-75.0The [facility] HospitalComment on above:Performed By: #### CVDTBH #### [facility] [address] [place] [address] Dr. Zari Pozo mean volume (Bld) [Entitic vol]10.8 fLNormal9.5-13.5The [facility] HospitalComment on above:Performed By: #### CVDTBH #### [facility] [address] [address] [address] Zari ButcherPLT288 103/ugGtiwbd876-422Hzp [facility] HospitalComment on above: Performed By: #### CVDTBH #### [facility] [address] [address] [address] Zari ButcherRBC4.57 106/ulNormal4.20-5.40The [facility] HospitalComment on above:Performed By: #### CVDTBH #### [facility] [address] [place] [address] Dr. Zari ButcherWBC17.6 103/ulCritically high4.0-11.0The [facility] Hospitalment on above:Performed By: #### CVDTBH #### [facility] [address] [place] [address] Dr. Zari ButcherCULTLEOBARDO URINEon [id number] URINECulture Observations: NO GROWTH.NormalThe [facility] HospitalComment on above:Performed By: #### URCX #### [facility] [address] [place] [address] Dr. Zari ButcherLIPASEon 71-33-9371Zglidw [Catalytic activity/Vol]86.0 U/LNormal 73.0-393.0The [facility] Hospitalment on above:Performed By: #### CMP, MEGHA, LIPA ####[facility] [address] [address]Dr. Zari ButcherPROF 14(COMP METB)on 20-04-4920Scxzojs [Mass/Vol]2.3 g/dL Critically low3.4-5.0The [facility] HospitalComment on above:Performed By: #### CBC #### [facility] [address] [address] [address] Zari ButcherAlbumin/Globulin [Mass ratio]0.5 {ratio}NormalThe [facility] HospitalComment on above:Performed By: #### CBC #### [facility] [address] [address] [address] Zari RobertoP [Catalytic activity/Vol]160 U/LCritically qikk65-440Hue [facility] HospitalComment on above:Performed By: #### CBC #### [facility] [address] [address] [address] Zari RobertoT [Catalytic activity/Vol]28 U/MNklsxb44-78Jml [facility] HospitalComment on above:Performed By: #### CBC #### [facility] [address] [address] [address] Zari Timmonson gap [Moles/Vol]11.8 mmol/LNormalThe [facility] Comment on above:Performed By: #### CBC #### [facility] [address] [address] [address] Zari ButcherAST [Catalytic activity/Vol]53 U/LCritically fttq45-92Ehm [facility] HospitalComment on above:Performed By: #### CBC #### [facility] [address] [address] [address] Zari ButcherBilirubin [Mass/Vol]0.6 mg/dLNormal0.2-1.0The [facility] Comment on above:Performed By: #### CBC #### [facility] [address] [place] [address] Dr. Zari ButcherCalcium [Mass/Vol]8.9 mg/dLNormal8.5-10.1The [facility] Comment on above:Performed By: #### CBC #### [facility] [address] [place] [address] Dr. Zari ButcherChloride [Moles/Vol]103 mmol/OGqmsym67-316Ajr [facility] Comment on above:Performed By: #### CBC #### [facility] [address] [address] [address] Zari ButcherCO2 [Moles/Vol]23.7 mmol/ZRcfsus90.0-32.0The [facility] Comment on above:Performed By: #### CBC #### [facility] [address] [address] [address] Zari Ferreratinine [Mass/Vol]0.48 mg/dLCritically low0.55-1.02The [facility] HospitalComment on above:Performed By: #### CBC #### [facility] [address] [place] [address] Dr. Zari RichardsonGFR-AF ST LUCIAN>60Normal>=60The [facility] HospitalComment on above:Performed By: #### CBC #### [facility] [address] [place] [address] Dr. Zari RichardsonGFR-NON AF ST LUCIAN>60Normal>=60The [facility] HospitalComment on above:Performed By: #### CBC #### [facility] [address] [place] [address] Dr. Zari ButcherGlobulin (S) [Mass/Vol]4.9 g/dLNormalThe [facility] HospitalComment on above:Performed By: #### CBC #### [facility] [address] [place] [address] Dr. Zari ButcherGlucose [Mass/Vol]101 mg/yFIbunqs93-385BdoCleveland Clinic Comment on above:Performed By: #### CBC #### [facility] [address] [place] [address] Dr. Zari ButcherPotassium [Moles/Vol]3.5 mmol/LNormal3.5-5.1The [facility] Comment on above:Performed By: #### CBC #### [facility] [address] [place] [address] Dr. Zari ButcherProtein [Mass/Vol]7.2 g/dLNormal6.4-8.2The [facility] Comment on above:Performed By: #### CBC #### [facility] [address] [place] [address] Dr. Zari ButcherSodium [Moles/Vol]135 mmol/LCritically kuj882-237Fpa [facility] HospitalComment on above:Performed By: #### CBC #### [facility] [address] [place] [address] Dr. Zari ButcherUrea nitrogen [Mass/Vol]7.0 mg/dLNormal7.0-18.0C[facility] ClinicComment on above:Performed By: #### CBC #### [facility] [address] [place] [address] Dr. Zari Rowe nitrogen/Creatinine [Mass ratio]14.6 mg/mgNormalThe [facility] HospitalComment on above:Performed By: #### CBC #### [facility] [address] [place] [address] Dr. Zari Tubbs 05-54-6104NIH [Catalytic activity/Vol]59 U/LCritically wwnc27-62UvvMary [facility]an Hospital on above:Performed By: #### CVDTBH #### [facility] [address] [place] [address] Dr. Zari Green [id number] [Catalytic activity/Vol]41 U/VHlqvfs95-77Vkl [facility] HospitalComment on above:Performed By: #### CVDTBH #### [facility] [address] [place] [address] Dr. Zari Anaya (CLEAN/CATCH) SEATER ASSEMBLER/MICRO IF IND.on 76-97-1053Ewixscemn Ql (U) NegativeNormalNEGATIVEMary Rutan Hospital on above:Performed By: #### RUBIGG #### [facility] [address] [place] [address] Dr. Zari Winters (U)CLEARNormalCLEARCleveland ClinicComment on above: Performed By: #### RUBIGG #### [facility] [address] [place] [address] Dr. Zari Robles (U)LT. YELLOWNormalYELLOWCleveland ClinicComment on above:Performed By: #### RUBIGG #### [facility] [address] [place] [address] Dr. Zari ButcherGlucose Ql (U)NegativeNormalNEGATIVECleveland ClinicComment on above:Performed By: #### RUBIGG #### [facility] [address] [place] [address] Dr. Zari ButcherHemoglobin Ql (U)NegativeNormalNEGSt. Elizabeth Hospital Comment on above:Performed By: #### RUBAPRILG #### [facility] [address] [place] [address] Dr. Zari Mendozaones Ql (U)NegativeNormalNEGATIVECleveland ClinicComment on above:Performed By: #### RUBAPRILG #### [facility] [address] [place] [address] Dr. Zari ButcherLEUKOCYTESSMALLAbnormalNEGATIVECleveland ClinicComment on above:Performed By: #### RUBAPRILG #### [facility] [address] [place] [address] Dr. Zari ButcherNitrite Ql (U)NegativeNormalNEGATIVECleveland ClinicComment on above:Performed By: #### RUBAPRILG #### [facility] [address] [place] [address] Dr. Zari ButcherpH (U)7.5 [pH]Normal5-9Cleveland ClinicComment on above: Performed By: #### JENNIFERG #### [facility] [address] [place] [address] Dr. Zari ButcherSPEC GRAVITY1.868Qoozwt0.005-<=1.025The [facility] HospitalComment on above:Performed By: #### RUBAPRILG #### [facility] [address] [place] [address] Dr. Zari Anaya PROTEINNegativeNormalNEGATIVE/ TRACEThe [facility] Comment on above:Performed By: #### RUBAPRILG #### [facility] [address] [place] [address] Dr. Zari Dee MICRO INDINDICATEDNormalThProMedica Memorial HospitalComment on above: Performed By: #### RUBAPRILG #### [facility] [address] [place] [address] Dr. Zari Bardalesgen Qn (U)4 {Ashvin'U}/dLAbnormal0.2 - 1.0The Loree HospitalComment on above:Performed By: #### RUBIGG #### [facility] [address] [address] [address] Zari Jordan MICROSCOPIC ONLYon 42-51-1920SHANYZZCAXKUIHbcsruwrWJNU SEEN [facility] ClinicCommclaren [facility] [place] on above:Performed By: #### RUBIGG #### [facility] [address] [address] [address] Zari Biswas identified Cx Nom (U)INDICATEDNoTuscarawas HospitalComment on above:Performed By: #### RUBIGG #### [facility] [address] [address] [address] Zari Canales SEENNormalNONE SEENMary Rutan Hospital on above:Performed By: #### RUBIGG #### [facility] [address] [address] [address] Zari Buitragoystals LM Nom (Urine sed)NONE SEENNormalNONE SEENMary Rutan Hospital on above:Performed By: #### RUBIGG #### [facility] [address] [address] [address] Hameed ChangEpithelial cells LM Ql (Urine sed)MANYAbnormalNONE SEEN /RAREMary Rutan Hospital on above:Performed By: #### RUBIGG #### [facility] [address] [address] [address] Zari FernándezE SEENNormalNONE SEENMary Rutan Hospital on above:Performed By: #### RUBIGG #### [facility] [address] [address] [address] Zari ButcherCwdchCUI0-9Tlbtfhch7-1McnMary Rutan Hospital on above:Performed By: #### RUBIGG #### [facility] [address] [address] [address] Zari ButcherWBC5-10AbnormalNONE SEENMary Rutan Hospital on above: Performed By: #### RUBIGG #### [facility] [address] [address] [address] Zari Waldrop PREG BIOPHY W NON STRESSon [id number] PREG BIOPHY W NON STRESSEXAMINATION: US PREG BIOPHY W NON STRESS HISTORY: [...] Electronically authenticated by: KIRSTEN MATA Date: 2022-08-21 16:40[facility] PREG PLACENTAon [id number] PREG PLACENTAEXAMINATION: US PREG PLACENTA HISTORY: pain COMPARISON: No relevant comparison available. FINDINGS: position: Cephalic presentation, longitudinal lie Amniotic fluid volume: 12.7 cm. Largest pocket 6.3 cm Placenta: Anterior. Grade 1. No intraplacental or retroplacental echogenic abnormality Heart rate: 1 40 bpm IMPRESSION: Normal appearance of the placenta Electronically authenticated by: KIRSTEN MATA Date: 2022-08-21 11:42[facility] PREG INCOMPLETE ANATOMYon [id number] PREG INCOMPLETE ANATOMYEXAMINATION: US PREG GROWTH, US PREG INCOMPLETE ANATOMY [...] Electronically authenticated by: ALEE MARTELL Date: 2022-08-08 05:57[facility] P[facility] INCOMPLETE ANATOMYon [id number] PREG INCOMPLETE ANATOMYEXAMINATION: US PREG INCOMPLETE ANATOMY HISTORY: Routine care [...] Electronically authenticated by: ALEE MARTELL Date: 2022-07-06 16:19[facility] PREG INCOMPLETE ANATOMYon [id number] PREG INCOMPLETE ANATOMYEXAMINATION: US PREG INCOMPLETE ANATOMY HISTORY: screening COMPARISON: [...] Electronically authenticated by: ALEE MARTELL Date: 2022-06-14 16:20[facility] CenterGLUCOSE - 1HRon 46-65-5460Cgyorsq [Mass/Vol]137 mg/dLCritically ztmo10-518Iho [facility] on above:Performed By: #### JENNIFERG #### [facility] [address] [place] [address] Dr. Zari ButcherHEMOGRAM AND PLATELon 83-73-3176Crksizpkmt (Bld) [Volume fraction]38.4 %Srgzao26.0-48.0The [facility]boro HospitalComment on above:Performed By: #### PURVIIGG #### [facility] [address] [place] [address] Dr. Zari Louiseoglobin (Bld) [Mass/Vol]12.4 g/vSMkqhrv24.0-16.0The [facility] HospitalComment on above:Performed By: #### JENNIFERG #### [facility] [address] [place] [address] Dr. Zari Herrera (RBC) [Entitic mass]27.7 pyAdegyc45.7-34.0The [facility] HospitalComment on above:Performed By: #### JENNIFERG #### [facility] [address] [place] [address] Dr. Zari Herrera (RBC) [Mass/Vol]32.3 g/wYDxapjj71.9-35.2The [facility] HospitalComment on above:Performed By: #### JENNIFERG #### [facility] [address] [place] [address] Dr. Zari HerreraV (RBC) [Entitic vol]85.7 xYZnhqod20.0-99.0The [facility] HospitalComment on above:Performed By: #### PURVIIGG #### [facility] [address] [place] [address] Dr. Zari ButcherPLT274 103/idHiffdo677-251Trr [facility] HospitalComment on above: Performed By: #### JENNIFERG #### [facility] [address] [place] [address] Dr. Zari ButcherRBC4.48 106/ulNormal4.20-5.40The [facility] HospitalComment on above:Performed By: #### JENNIFERG #### [facility] [address] [place] [address] Dr. Zari ButcherWBC10.5 103/ulNormal4.0-11.0The [facility] HospitalComment on above:Performed By: #### JENNIFERG #### [facility] [address] [place] [address] Dr. Zari Waldrop PREG ANATOMY SINGLEon [id number] PREG ANATOMY SINGLE EXAMINATION: US PREG ANATOMY SINGLE HISTORY: anatomy study COMPARISON: No [...] Electronically authenticated by: KIRSTEN MATA Date: 2022-05-16 18:25[facility] CenterCHEMISTRYOrdered By: SYSTEM SYSTEM on 44-06-2102Btdttno [Mass/Vol]3.0 g/dLLow3.3 - 5.0 gm/dLFTMC RemisolAlbumin/Globulin [Mass ratio]0.8 {ratio}Low1.1 - 2.2[facility] RemisolALP [Catalytic activity/Vol]59 [iU]/nKuxbrv90 - 98 Int._Unit/LFTMC RemisolALT No additional P-5'-P [Catalytic activity/Vol]12 [iU]/dNormal6 - 46 Int._Unit/LFTMC RemisolAnion gap [Moles/Vol]13 mmol/LNormal6 - 16 mEq/LFTMC RemisolAST [Catalytic activity/Vol]12 [iU]/dNormal5 - 43 Int._Unit/LFTMC RemisolBilirubin [Mass/Vol]0.3 mg/dLNormal0.0 - 1.1 mg/dLFTMC RemisolBilirubin.direct [Mass/Vol]mg/dLNormal0.1 - 0.4 mg/dLFTMC Remisol Bilirubin.indirect [Mass or moles/Vol]Unable to Calculate mg/dLInvalid Interpretation Code0.1 - 0.9 mg/dLFTMC RemisolCalcium [Mass/Vol]9.3 mg/dLNormal 8.9 - 11.1 mg/dLFTMC RemisolChloride [Moles/Vol]104 mmol/ITcwmys267 - 111 mmol/L [facility] RemisolCO2 [Moles/Vol]23 mmol/UHrspxj96 - 31 mmol/LFTMC RemisolCreatinine [Mass/Vol]0.4 mg/dLLow0.5 - 1.3 mg/dLFTMC RemisolGFR/1.73 sq M.predicted among blacks MDRD (S/P/Bld) [Vol rate/Area]mL/min/1.73 n0Qrtukp>=59mL/min/1.73 m2[facility] Chem SGFR/1.73 sq M.predicted among non-blacks MDRD (S/P/Bld) [Vol rate/Area] mL/min/1.73 i0Jmmars>=59mL/min/1.73 m2[facility] Chem SGlobulin (S) [Mass/Vol]3.9 g/dL Normal1.4 - 4.0 gm/dLFTMC RemisolGlucose [Mass/Vol]88 mg/uLDrqczy26 - 199 mg/dL [facility] RemisolLipase [Catalytic activity/Vol]26 U/XKfywyw63 - 58 unit/LFTMC RemisolPotassium [Moles/Vol]3.7 mmol/LNormal3.5 - 5.3 mmol/LFTMC RemisolProtein [Mass/Vol]6.9 g/dLNormal6.0 - 7.8 gm/dLFTMC RemisolSodium [Moles/Vol]136 mmol/L Hhifdt787 - 145 mmol/LFTMC RemisolUrea nitrogen [Mass/Vol]8 mg/dLNormal5 - 21 mg/dLFTMC RemisolUrea nitrogen/Creatinine [Mass ratio]20 mg/fvWjytfv42 - 20[facility] RemisolHEMATOLOGYOrdered By: [employer] SYSTEM on 69-33-0658Mhmhmlxcr/100 WBC (Bld) 0.7 %Normal0.0 - 2.0 %[facility] HemeAutoSSBasophils/Leukocytes Auto (Bld) [Pure # fraction]0.1 E9/LNormal0.0 - 0.2 E9/LFTMC HemeAutoSSEosinophils/100 WBC (Bld)1.3 %Normal0.0 - 8.0 %[facility] HemeAutoSSEosinophils/Leukocytes Auto (Bld) [Pure # fraction]0.2 E9/LNormal0.0 - 0.5 E9/LFTMC HemeAutoSSLymphocytes/100 WBC (Bld) 19.1 %Ecvdnk11.0 - 50.0 %[facility] HemeAutoSSLymphocytes/Leukocytes Auto (Bld) [Pure # fraction]2.6 E9/LNormal1.0 - 4.0 E9/LFTMC HemeAutoSSMonocytes/100 WBC (Bld)5.7 %Normal4.0 - 14.0 %[facility] HemeAutoSSMonocytes/Leukocytes Auto (Bld) [Pure # fraction]0.8 E9/LNormal0.2 - 1.0 E9/LFTMC HemeAutoSSNeutrophils/100 WBC (Bld) 73.2 %Zyvkyl09.0 - 75.0 %[facility] HemeAutoSSNeutrophils/Leukocytes Auto (Bld) [Pure # fraction]10.1 E9/LHigh2.0 - 7.5 E9/LFTMC HemeAutoSSHEMATOLOGYOrdered By: Shanique Jerez on 86-31-9180Mgmulcpzihd distribution width (RBC) [Ratio]14.5 % High10.9 - 14.2 %[facility] HemeAutoSSHematocrit (Bld) [Volume fraction]40.4 %Normal 34.0 - 46.0 %[facility] HemeAutoSSHemoglobin (Bld) [Mass/Vol]13.2 g/yYEmrjge00.0 - 16.0 gm/dLFTMC HemeAutoSSMCH (RBC) [Entitic mass]27.0 weBfjcgf09.0 - 34.0 pgFTMC HemeAutoSSMCHC (RBC) [Mass/Vol]32.7 g/rQLkcxnt39.4 - 36.0 gm/dLFTMC HemeAutoSS MCV (RBC) [Entitic vol]82.7 fQUbipju04.0 - 100.0 fLFTMC HemeAutoSSPlatelet mean volume (Bld) [Entitic vol]9.2 fLNormal6.4 - 10.8 fLFTMC HemeAutoSSPlatelets (Bld) [#/Vol]267.0 E9/UYaffgi800.0 - 500.0 E9/LFTMC HemeAutoSSRBC (Bld) [#/Vol] 4.9 E12/LNormal4.3 - 5.9 E12/LFTMC HemeAutoSSWBC corrected for nucl RBC Auto (Bld) [#/Vol]13.8 E9/LHigh4.0 - 11.0 E9/LFTMC HemeAutoSSURINALYSISOrdered By: Shanique Jerez on 82-84-1860Ysvqqyiy LM Ql (Urine sed)1+ /HPFInvalid Interpretation CodeTrace/HPFFT UA Auto SSBilirubin Ql (U)Negative (05/06/22 1:39 AM)NormalNegativeJEFFERSON [facility] UA Auto SSClarity (U)Slightly Cloudy *ABN* (05/06/22 1:39 AM)Invalid Interpretation CodeClearFC UA Auto SSColor (U)Yellow (05/06/22 1:39 AM)NormalYellowFT UA Auto SSEpithelial cells.squamous LM.HPF (Urine sed) [#/Area]/[HPF]Normal0-2/HPFFTMC UA Auto SSGlucose Test strip (U) [Mass/Vol]Negative (05/06/22 1:39 AM)NormalNegativeJEFFERSON COUNTY HOS[facility] [place] UA Auto SSHemoglobin Ql (U)Negative (05/06/22 1:39 AM)NormalNegativeJEFFERSON COUNTY HOS[facility] [place] UA Auto SSKetones (U) [Mass/Vol]Trace *ABN* (05/06/22 1:39 AM)Invalid Interpretation CodeNegativeJEFFERSON COUNTY HOS[facility]ITAL [facility] [place] UA Auto SS Lamkin.plasma/Lamkin.RBC (Bld) [Mass ratio]0-3 /HPFNormal0-3/HPFJEFFERSON COUNTY HOSPITAL – [place] UA Auto SSMucus Ql (Urine sed)1+ (05/06/22 1:39 AM)NormalJEFFERSON COUNTY [facility]OS[facility]ITAL [facility] UA Auto SSNitrite Ql (U)Negative (05/06/22 1:39 AM)NormalNegativeJEFFERSON COUNTY [facility] [place] UA Auto SSpH (U)6.0 *NA* (05/06/22 1:39 AM)Invalid Interpretation Code5.0 - 9.0[facility] UA Auto SSProtein (U) [Mass/Vol]Negative (05/06/22 1:39 AM)NormalNegativeJEFFERSON [facility] [place] UA Auto SSSpecific gravity (U) [Rel density] 1.025 *NA* (05/06/22 1:39 AM)Invalid Interpretation Code1.005 - 1.030[facility] [place] UA Auto SSUA Spec DescClean Catch (05/06/22 1:39 AM)NormalJEFFERSON COUNTY HOSPITAL – [facility] UA Auto SSUrobilinogen Qn (U)1.4216123 {Ashvin'U}/dLNormal0.0 - 1.0 EU/dLJEFFERSON COUNTY HOSPITAL – [place] UA Auto SSWBC Auto Ql (U)1+ *ABN* (05/06/22 1:39 AM)Invalid Interpretation CodeNegativeJEFFERSON COUNTY HOSPITAL [facility] [place] UA Auto SSWBC LM.HPF (Urine sed) [#/Area]6-15 /HPFInvalid Interpretation Code0-5/HPFJEFFERSON COUNTY HOSPITAL – [facility] UA Auto SS AMYLASEon 77-77-4356Klobiwy [Catalytic activity/Vol]36 U/DHmgztw43-212Xhl [facility] HospitalComment on above:Performed By: #### CBC #### [facility] [address] [place], [place] [address] Dr. Zari Tovar AUTO DIFFon [id number] #0.0 103/ulNormal0.0-0.1The [facility] HospitalComment on above:Performed By: #### CBC ####[facility] [address] [place], [place] [address]Sb.Yilan ChangBasophils/100 WBC (Bld)0.2 %Normal0.2-2.0The [facility] HospitalComment on above:Performed By: #### CBC ####[facility] [address] [place], [place] [address]Dr.Franchescalan ChangEO #0.1 103/ulNormal0.0-0.7The [facility] HospitalComment on above:Performed By: #### CBC ####[facility] [address] [place], [place] [address]Dr.Zari ChangEosinophils/100 WBC (Bld)1.0 %Normal 0.9-7.0The [facility] HospitalComment on above:Performed By: #### CBC ####[facility] [address] [place], [place] [address]Dr.Franchescacarolyn Butcher Erythrocyte distribution width (RBC) [Ratio]13.5 %Doavqd36.0-15.0The [facility] HospitalComment on above:Performed By: #### CBC ####[facility] [address] [place], [place] [address]Dr.Zari ChangHematocrit (Bld) [Volume fraction]41.9 %Iysixj62.0-48.0The [facility] HospitalComment on above:Performed By: #### CBC ####[facility] [address] [place], [place] [address]Dr.Zari ChangHemoglobin (Bld) [Mass/Vol]13.7 g/dL Cbtjkh61.0-16.0The [facility] HospitalComment on above:Performed By: #### CBC ####[facility] [address] [place], [place] [address]Dr. Zari ChangIG #0.04 10e3/ulCritically high0.00-0.03The [facility] HospitalComment on above:Performed By: #### CBC ####[facility] [address] [place], [place] [address]Dr.Zari ChangIG %0.4 %Normal0.0-0.5The [facility] HospitalComment on above:Performed By: #### CBC ####[facility] [address] [id number].Zari ButcherLYMPH #1.3 103/ulNormal1.2-3.8The [facility] HospitalComment on above:Performed By: #### CBC ####[facility] [address] [address]Dr. Zari ButcherLymphocytes/100 WBC (Bld)12.8 %Critically low20.5-60.0The [facility] HospitalComment on above:Performed By: #### CBC ####[facility] [address] [address]Dr.Zari ButcherMANUAL DIFF REQ NONormalThe [facility] HospitalComment on above:Performed By: #### CBC ####[facility] [address] [address]Dr. Zari ButcherH (RBC) [Entitic mass]27.7 anQpbglo27.7-34.0The [facility] Comment on above:Performed By: #### CBC ####[facility] [address] [place], [place] [address]Dr.Zari ButcherMCHC (RBC) [Mass/Vol]32.7 g/dL Itngqj52.9-35.2The [facility] HospitalComment on above:Performed By: #### CBC ####[facility] [address] [place], [place] [address]Dr. Zari ButcherMCV (RBC) [Entitic vol]84.6 qOFrdtuf49.0-99.0The [facility] Comment on above:Performed By: #### CBC ####[facility] [address] [address]Dr.Zari ButcherMONO #0.4 103/ulNormal0.3-0.8 The [facility] HospitalComment on above:Performed By: #### CBC ####[facility] [address] [place], [place] [address]Dr.Zari Butcher Monocytes/100 WBC (Bld)4.3 %Normal1.7-12.0The [facility] HospitalComment on above: Performed By: #### CBC ####[facility] [address] [address]Dr.Zari ButcherNEUT #8.1 103/ulCritically high1.4-6.5 The [facility] HospitalComment on above:Performed By: #### CBC ####[facility] [address] [address]Dr.Zari Butcher Neutrophils/100 WBC (Bld)81.3 %Critically high43.0-75.0The [facility] Comment on above:Performed By: #### CBC ####[facility] [address] [address]Dr.Zari ButcherPlatelet mean volume (Bld) [Entitic vol]9.8 fLNormal9.5-13.5The [facility] HospitalComment on above:Performed By: #### CBC ####[facility] [address] [address]Dr.Zari FwhwrZLX181 103/gkDbneul241-724Rea [facility] HospitalComment on above:Performed By: #### CBC ####[facility] [address] [address]Dr.Zari ButcherRBC4.95 106/ulNormal4.20-5.40The [place] HospitalComment on above:Performed By: #### CBC ####[facility] [address] [place], [place] [address]Dr.Zari ButcherWBC9.9 103/ul Normal4.0-11.0The [facility] HospitalComment on above:Performed By: #### CBC ####[facility] [address] [place], [place] [address]Dr. Zari ChangER URINE PROFILEon 30-01-8047Afzaijbap Ql (U)NegativeNormalNEGATIVE The [facility] HospitalComment on above:Performed By: #### CVDTBH #### [facility] [address] [address] [address] Zari ButcherClarity (U)CLEARNormalCLEARThe [place] HospitalComment on above: Performed By: #### CVDTBH #### [facility] [address] [address] [address] Zari Oroscolor (U)YELLOWNormalYELLOWCleveland ClinicComment on above: Performed By: #### CVDTBH #### [facility] [address] [place] [address] Dr. Zari Bobby micrscopic examination will be performed if indicated. NormalThe [facility] HospitalComment on above:Performed By: #### CVDTBH #### [facility] [address] [address] [address] Zari ButcherGlucose Ql (U)NegativeNormalNEGATIVECleveland ClinicComment on above:Performed By: #### CVDTBH #### [facility] [address] [place] [address] Dr. Zari ButcherHemoglobin Ql (U)NegativeNormalNEGATIVELakehealth [facility]point [facility] Center on above:Performed By: #### CVDTBH #### [facility] [address] [place] [address] Dr. Zari Mendozaones Ql (U)NegativeNormalNEGATIVECleveland ClinicComment on above:Performed By: #### CVDTBH #### [facility] [address] [place] [address] Dr. Zari ButcherLEUKOCYTESNegativeNormalNEGATIVECleveland ClinicComment on above:Performed By: #### CVDTBH #### [facility] [address] [place] [address] Dr. Zari ButcherNitrite Ql (U)NegativeNormalNEGATIVECleveland ClinicComment on above:Performed By: #### CVDTBH #### [facility] [address] [address] [address] Zari ButcherpH (U)5.5 [pH]Normal5-9C[place] ClinicComment on above: Performed By: #### CVDTBH #### [facility] [address] [place] [address] Dr. Zari ButcherSPEC GRAVITY>=1.268Lqnoxfim1.005-<=1.025The [facility] Comment on above:Performed By: #### CVDTBH #### [facility] [address] [place] [address] Dr. Zari nAaya PROTEINNegativeNoalNEGATIVE/ TRACEThe [facility] Comment on above:Performed By: #### CVDTBH #### [facility] [address] [place] [address] Dr. Zari Dee MICRO INDNOT INDICATEDNormalThe [facility] HospitalComment on above:Performed By: #### CVDTBH #### [facility] [address] [place] [address] Dr. Zari Gonzalezbilrose Qn (U)2.0 {Ashvin'U}/dLAbnormal0.2 - 1.0The [facility] HospitalComment on above:Performed By: #### CVDTBH #### [facility] [address] [place] [address] Dr. Zari ButcherLIPASEon 83-20-2003Whorrr [Catalytic activity/Vol]56.0 U/L Critically low73.0-393.0The [facility] HospitalComment on above:Performed By: #### CBC #### [facility] [address] [place] [address] Dr. Zari Sanchez 14(COMP METB)on 20-71-3330Yvhznrj [Mass/Vol]2.8 g/dL Critically low3.4-5.0The [facility] HospitalComment on above:Performed By: #### CBC #### [facility] [address] [place] [address] Dr. Zari ButcherAlbumin/Globulin [Mass ratio]0.6 {ratio}NormalThe [facility] Methodist HospitalComment on above:Performed By: #### CBC #### [facility] [address] [place] [address] Dr. Zari RobertoP [Catalytic activity/Vol]74 U/JFihjtr82-713Yns [facility] HospitalComment on above:Performed By: #### CBC #### [facility] [address] [place] [address] Dr. Zari Meyers [Catalytic activity/Vol]40 U/BJzjmff73-93Awr [facility] HospitalComment on above:Performed By: #### CBC #### [facility] [address] [place] [address] Dr. Zari Timmonson gap [Moles/Vol]11.5 mmol/LNormalC[facility] Comment on above:Performed By: #### CBC #### [facility] [address] [place] [address] Dr. Zari ButcherAST [Catalytic activity/Vol]18 U/PGlnkvx35-30Jmp [facility] HospitalComment on above:Performed By: #### CBC #### [facility] [address] [place] [address] Dr. Zari ButcherBilirubin [Mass/Vol]0.4 mg/dLNormal0.2-1.0[facility] Comment on above:Performed By: #### CBC #### [facility] [address] [place] [address] Dr. Zari ButcherCalcium [Mass/Vol]8.6 mg/dLNormal8.5-10.1The [facility] Comment on above:Performed By: #### CBC #### [facility] [address] [place] [address] Dr. Zari ButcherChloride [Moles/Vol]104 mmol/VZligsr90-383Dzx [facility] Comment on above:Performed By: #### CBC #### [facility] [address] [place] [address] Dr. Zari ButcehrCO2 [Moles/Vol]25.2 mmol/MGiuksi76.0-32.0The [facility] Comment on above:Performed By: #### CBC #### [facility] [address] [place] [address] Dr. Zari ButcherCreatinine [Mass/Vol]0.48 mg/dLCritically low0.55-1.02The [facility] HospitalComment on above:Performed By: #### CBC #### [facility] [address] [place] [address] Dr. Hameed ChangEGFR-AF ST LUCIAN>60Normal>=60The [facility] HospitalComment on above:Performed By: #### CBC #### [facility] [address] [address] [address] Zari RichardsonGFR-NON AF ST LUCIAN>60Normal>=60The [facility] HospitalComment on above:Performed By: #### CBC #### [facility] [address] [address] [address] Zari ButcherGlobulin (S) [Mass/Vol]4.5 g/dLNormCoshocton Regional Medical CenterComment on above:Performed By: #### CBC #### [facility] [address] [address] [address] Zari ButcherGlucose [Mass/Vol]100 mg/fRJzvqtn44-227PfqC[facility] Clinic Comment on above:Performed By: #### CBC #### [facility] [address] [address] [address] Zari ButcherPotassium [Moles/Vol]3.7 mmol/LNormal3.5-5.1[facility] Comment on above:Performed By: #### CBC #### [facility] [address] [address] [address] Zari ButcherProtein [Mass/Vol]7.3 g/dLNormal6.4-8.2[facility] Comment on above:Performed By: #### CBC #### [facility] [address] [address] [address] Zari ButcherSodium [Moles/Vol]137 mmol/ITtxfrt748-492IxtC[facility] Comment on above:Performed By: #### CBC #### [facility] [address] [address] [address] Zari ButcherUrea nitrogen [Mass/Vol]5.0 mg/dLCritically low7.0-18.0The [facility] HospitalComment on above:Performed By: #### CBC #### [facility] [address] [address] [address] Zari ButcherUrea nitrogen/Creatinine [Mass ratio]10.4 mg/mgNormSheltering Arms Hospital on above:Performed By: #### CBC #### [facility] [address] [place] [address] Dr. Zari Salinas B SURFACE ANTIGEN SCREENon [id number] ScreenNegative NormalNegativeThe [facility] on above:Performed By: #### RUBIGG #### [facility] [address] [place] [address] Dr. Zari PhilipPATITIS C VIRUS AB W/ REFLEX QUANTon [id number] AB<0.1Normal 0.0-0.9The [facility] on above:Performed By: #### RUBIGG #### [facility] [address] [place] [address] Dr. Zari ButcherInterpretation:CommentSelect Medical Specialty Hospital - [place] on above:Result Comment: Negative Not infected with HCV, unless recent infection is suspected or other evidence exists to indicate HCV infection.Performed By: #### RUBIGG #### [facility] [address] [place] [address] Dr. Zari Parker 1 AND 2 WITH REFLEXon [id number] Screen 4th Generation wRfxNon-ReactiveNormalNon ReactiveThe [facility] on above:Result Comment: HIV Negative HIV-1/HIV-2 antibodies and HIV-1 p24 antigen were NOT detected. There is no laboratory evidence of HIV infection.Performed By: #### RUBIGG #### [facility] [address] [place] [address] Dr. Zari ButcherRPR QUANTon 71-46-4460Pcfdh Plasma Reagin, QuantNon-Reactive NormalNonRea<1:1The [facility] on above:Result Comment: Please Note: This test does not meet current guidelines for screening and diagnosis of syphilis. This test is intended for following treatment response in patients being treated for syphilis infection. To screen for syphilis infection, a reflex cascade that includes both RPR and a treponema-specific assay should be utilized, such as Treponema pallidum (Syphilis) Screening [place] (911220) or Rapid Plasma Reagin (RPR) Test With Reflex to Quantitative RPR and Confirmatory Treponema pallidum Antibodies (981058).Performed By: #### CBC #### [facility] [address] [place] [address] Dr. Zari Livingston AB IGGon 08-32-8088Gcdsehz Antibodies, IgG1.48 index NormalImmune >0.99The [facility] HospitalComment on above:Result Comment: Non- immune <0.90 Equivocal 0.90 - 0.99 Immune >0.99Performed By: #### RUBIGG #### [facility] [address] [place] [address] Dr. Zari Tovar AUTO DIFFon [id number] #0.0 103/ulNormal0.0-0.1The [facility] HospitalComment on above:Performed By: #### CBC #### [facility] [address] [place] [address] Dr. Zari ButcherBasophils/100 WBC (Bld)0.3 %Normal0.2-2.0[facility] Comment on above:Performed By: #### CBC #### [facility] [address] [place] [address] Dr. Zari Turner #0.2 103/ulNormal0.0-0.7The [facility] HospitalComment on above: Performed By: #### CBC #### [facility] [address] [place] [address] Dr. Zari Richardsonosinophils/100 WBC (Bld)1.7 %Normal0.9-7.0The [facility] Comment on above:Performed By: #### CBC #### [facility] [address] [place] [address] Dr. Zari Richardsonrythrocyte distribution width (RBC) [Ratio]13.2 %Kaqoax67.0-15.0 The [facility] HospitalComment on above:Performed By: #### CBC #### [facility] [address] [place] [address] Dr. Zari ButcherHematocrit (Bld) [Volume fraction]42.0 %Gngvxp74.0-48.0The [facility] HospitalComment on above:Performed By: #### CBC #### [facility] [address] [address] [address] Zari ButcherHemoglobin (Bld) [Mass/Vol]13.5 g/sIMaiqme57.0-16.0The [facility] HospitalComment on above:Performed By: #### CBC #### [facility] [address] [address] [address] Zari Nash #0.04 10e3/ulCritically high0.00-0.03The [facility] Comment on above:Performed By: #### CBC #### [facility] [address] [address] [address] Zari Nash %0.4 %Normal0.0-0.5The [facility] HospitalComment on above: Performed By: #### CBC #### [facility] [address] [address] [address] Zari Chavez #2.5 103/ulNormal1.2-3.8The [facility] HospitalComment on above:Performed By: #### CBC #### [facility] [address] [address] [address] Zari Hollandhocytes/100 WBC (Bld)22.6 %Mwexok72.5-60.0The [facility] Hospitalment on above:Performed By: #### CBC #### [facility] [address] [address] [address] Zari SmallUAL DIFF REQNONormalThe [facility] HospitalComment on above: Performed By: #### CBC #### [facility] [address] [address] [address] Zari Herrera (RBC) [Entitic mass]27.2 vjMuopvi54.7-34.0The [facility] HospitalComment on above:Performed By: #### CBC #### [facility] [address] [address] [address] Zari Herrera (RBC) [Mass/Vol]32.1 g/zGSnipms07.9-35.2The [facility] HospitalComment on above:Performed By: #### CBC #### [facility] [address] [address] [address] Zari Bertrand (RBC) [Entitic vol]84.5 fWOzlqpg44.0-99.0The [facility] HospitalComment on above:Performed By: #### CBC #### [facility] [address] [place] [address] Dr. Zari Alvarez #0.6 103/ulNormal0.3-0.8The [facility] HospitalComment on above:Performed By: #### CBC #### [facility] [address] [place] [address] Dr. Zari Bennettocytes/100 WBC (Bld)5.1 %Normal1.7-12.0[facility] Comment on above:Performed By: #### CBC #### [facility] [address] [place] [address] Dr. Zari Miller #7.7 103/ulCritically high1.4-6.5The [facility] Comment on above:Performed By: #### CBC #### [facility] [address] [place] [address] Dr. Zari Faustinutrophils/100 WBC (Bld)69.9 %Kmfwxw21.0-75.0The [facility] HospitalComment on above:Performed By: #### CBC #### [facility] [address] [place] [address] Dr. Zari Colemanlet mean volume (Bld) [Entitic vol]10.1 fLNormal9.5-13.5The [facility] HospitalComment on above:Performed By: #### CBC #### [facility] [address] [place] [address] Dr. Zari ButcherPLT312 103/qpWcsuep921-417Nqr [facility] HospitalComment on above: Performed By: #### CBC #### [facility] [address] [place] [address] Dr. Zari ButcherRBC4.97 106/ulNormal4.20-5.40The [facility] Hospitalment on above:Performed By: #### CBC #### [facility] [address] [address] [address] Zari ButcherWBC11.0 103/ulNormal4.0-11.0The [facility] Hospitalment on above:Performed By: #### CBC #### [facility] [address] [address] [address] Zari ButcherCULTURE URINEon 75-15-3539YORTIKZ URINECulture Observations: LIGHT GROWTH OF MIXED GENITAL ALIVIA. NO POTENTIAL PATHOGENS SEEN.NormalThe [facility] HospitalComment on above:Performed By: #### URCX ####[facility] [address] [address]. Zari Butcher GLYCOHEMOGLOBIN A1Con 08-67-2601CFB RECOMMENDATIONSEE BELOWOhioHealth Grant Medical CenterCommclaren [place] on above:Result Comment: ADA RECOMMENDED LIMIT 4.0 - 6.0 ADA THERAPEUTIC TARGET < 7.0 ACTION SUGGESTED > 7.0Performed By: #### RUBIGG #### [facility] [address] [address] [address] Zari ButcherGlucose [Mass/Vol]114 mg/dLOhioHealth Grant Medical CenterCommclaren [place] on above:Performed By: #### RUBIGG #### [facility] [address] [address] [address] Zari ButcherHbA1c (Bld) [Mass fraction]5.6 %Normal4.5-6.2The [facility] on above:Performed By: #### RUBIGG #### [facility] [address] [address] [address] Zari ButcherTYPE AND SCREENon [id number] AND SCREENNegativeOhioHealth Grant Medical CenterCommclaren [place] on above:Performed By: #### TNS #### [facility] [address] [address] [address] Zari ButcherUS PREG TVon [id number] PREG TVEXAMINATION: US PREG TV HISTORY: Missed period COMPARISON: [...] Electronically authenticated by: KIRSTEN MATA Date: 2022-02-17 10:28[facility] CenterPRE QUANT HCGon [id number] mIU/mLNJoint Township District Memorial HospitalComment on above:Performed By: #### FÁTIMA #### [facility] [address] [place] [address] Dr. Zari ButcherJuma Memorial HospitalComment on above: Result Comment: 5-50 0-1 WEEK 40-300 1-2 WEEKS 100-1,000 2-3 WEEKS 500-6,000 3-4 WEEKS 5,000-200,000 1-2 MONTHS 10,000-100,000 2-3 MONTHS 3,000-50,000 2ND TRIMESTER 1,000-50,000 3RD TRIMESTERPerformed By: #### FÁTIMA #### [facility] [address] [place] [address] Dr. Zari Issa [id number] Visit (BREANNE) PRUDENCIO MIN ([id number]) 1995 F Date Time Provider Department 04/18/19 9:00 AM MARIN BARTLETT During your visit today, we recorded the following information about you: Pulse Blood pressure Weight Height 87/minute 133/62 137 kg 1.562 m Marin Bartlett MD 04/18/2019 10:41 AM Signed OTONEUROLOGY CONSULTATION Referral source: Andrea Vargas ([employer]), AP* Chief Complaint: Dizziness: Spinning vs swaying Imbalance Headache Pre/syncope ################################################################## ################################################################## Impressions: Issues of dizziness, imbalance, headache, neck [...] call in one week to report status. ################################################################## ################################################################## ################################################################## History: Preceding URI symptoms: No Onset of symptoms: In usual state of health until 08/25. Was sitting at work. Mild dizziness and then LOC (unknown duration). Was confused afterward the rest of the day. 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 [...] a MCGEE Especially white lights Few minutes ################################################################## # Dizziness # # Inc Dec N/C Visual motion sens. # # IIB X typically better with laying down / very quickly # Fluor: # Roll x # Flash: # Look Up y # TV: n/a # Look Down y PC / phone: y (blurry vision / spinning) # Car: # OOB +- Pass: +- (no h/o motion sickness) # Senior Relationship Manager: +- (does not drive far / much) # Bending Store: Y (sometimes more problems in [employer]) # Upon Up # # Stress x # # Fatigue ?Y # # Time of Day x # ################################################################# Vestibular: Dizziness: (see hpi) Imbalance: sometimes / [...] present Has IUD in. 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 Presyncope - see hpi Sens to hot showers - none Palp - none Pulmonary: Dyspnea on Exertion: at times - since being less active Psychiatry: Anxiety / Depression: Both / old issue - on celexa - w/ benefit ################################################################## The diagnostic work-up for this problem thus far has included: Consultation Dx Date Location ER y PCP y ENT n Neuro [facility] Andrea Cards y (not [facility]) GI ###################################### Testing Result Date Location Head CT 03/22/18 MRI 09/25/18 (+- contrast) - normal - per report MRA EEG y normal (per patient) EKG y Echo y TTT y 12/24/18 normal Audio n VNG n ################################### Treatment for current illness: Medications: ibuprofen Procedures/Surgery: PT Other Neck - no VR - no Chiropractic manipulation - no ################################################################## Past Medical History: Head / Neck trauma: [...] disease) - Headache 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 Dizziness: Mother - vertigo x 1 Headache: Mother, MGM, PGM - migraine cardiac: PGF, MGF Stroke: No Similar disorders: ################################################################## Physical Examination: Comprehensive neurological and otological examinations, [...] Gross LE to PP: N/T Coordination examination: Usxnwk-qe-rflj testing was normal bilaterally. Zcuw-sz-znyv testing was normal bilaterally. Postural stability: Romberg: normal Gait examination: Usual gait: normal Heel walk: normal Toe walk: normal Tandem (Forward): somewhat unsteady Tandem (Reverse): somewhat unsteady ################################################################## MCGEE 0 Dizziness 0 Frontal head pressure 3 - 0 w cervical traction No photo / phono ################################################################## The patient was personally seen and examined by myself. Marin Bartlett MD [facility] [place] [facility] T33 cc: Andrea Vargas ([facility]), EDITA Chen, * (sent via [employer] - to sec*) (Results of consultation to be transmitted via electronic medical record for those providers who practice within [facility] or with access to [employer] via MD Connect, or via letter) Total time of 81 minutes was spent with the patient regarding the above. Greater than 50% of time was spent on counselling. Referring Provider: ANDREA VARGAS ([facility]) [[id number]] Allergies As of Date: 04/18/2019 Noted Allergy [...] of left ear [H83.02] Neck pain [M54.2] Order(s):methylPREDNISolone (MEDROL, ALEXANDRA,) 4 mg Dose-PackAs instructed per [...] Encounter Status:Closed by MARIN [facility]TT [facility] [id number] ID: [id number] Author: Marin Bartlett Service: ? Author Type: Physician Type: Progress Notes Filed: 04/18/2019 10:41 AM Note Text: OTONEUROLOGY CONSULTATION Referral source: Andrea Vargas ([facility]), AP* Chief Complaint: Dizziness: Spinning vs swaying Imbalance Headache Pre/syncope ################################################################## ################################################################## Impressions: Issues of dizziness, imbalance, headache, neck [...] with the patient. Neck physical therapy: Sonia Sexton [place]. Vestibular rehabilitation afterward. Migraine: - Start magnesium [...] call in one week to report status. ################################################################## ################################################################## ################################################################## History: Preceding URI symptoms: No Onset of symptoms: In usual state of health until 08/25. Was sitting at work. Mild dizziness and then LOC (unknown duration). Was confused afterward the rest of the day. 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 [...] a MCGEE Especially white lights Few minutes ################################################################## # Dizziness # # Inc Dec N/C Visual motion sens. # # IIB X typically better with laying down / very quickly # Fluor: # Roll x # Flash: # Look Up y # TV: n/a # Look Down y PC / phone: y (blurry vision / spinning) # Car: # OOB +- Pass: +- (no h/o motion sickness) # Senior Relationship Manager: +- (does not drive far / much) # Bending Store: Y (sometimes more problems in [employer]) # Upon Up # # Stress x # # Fatigue ?Y # # Time of Day x # ################################################################# Vestibular: Dizziness: (see hpi) Imbalance: sometimes / [...] present Has IUD in. No regular periods ################################################################## Review of Systems: General: Energy: sluggish - [...] issue - on celexa - w/ benefit ################################################################## The diagnostic work-up for this problem thus far has included: Consultation Dx Date Location ER y PCP y ENT n Neuro [facility] y (not [facility]) GI ###################################### Testing Result Date Location Head CT 03/22/18 MRI 09/25/18 (+- contrast) - normal - per report MRA EEG y normal (per patient) EKG y Echo y TTT y 12/24/18 normal Audio n VNG n ################################### Treatment for current illness: Medications: ibuprofen Procedures/Surgery: PT Other Neck - no VR - no Chiropractic manipulation - no ################################################################## Past Medical History: Head / Neck trauma: [...] disease) - Headache 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 Dizziness: Mother - vertigo x 1 Headache: Mother, MGM, PGM - migraine cardiac: PGF, MGF Stroke: No Similar disorders: ################################################################## Physical Examination: Comprehensive neurological and otological examinations, [...] Gross LE to PP: N/T Coordination examination: Mbzfhc-ko-rdwq testing was normal bilaterally. Qfne-ys-teph testing was normal bilaterally. Postural stability: Romberg: normal Gait examination: Usual gait: normal Heel walk: normal Toe walk: normal Tandem (Forward): somewhat unsteady Tandem (Reverse): somewhat unsteady ################################################################## MCGEE 0 Dizziness 0 Frontal head pressure 3 - 0 w cervical traction No photo / phono ################################################################## The patient was personally seen and examined by myself. Marin Bartlett MD [facility] [place] [facility] T33 cc: Andrea Vargas ([facility]), EDITA Chen, DO * (sent via [employer] - to sec*) (Results of consultation to be transmitted via electronic medical record for those providers who practice within [facility] or with access to [email or web address] via MD Connect, or via letter) Total time of 81 minutes was spent with the patient regarding the above. Greater than 50% of time was spent on counselling.NormalUc West Chester HospitalCNOVon [id number] Visit (NEADMN) PRUDENCIO MIN ([id number]) 1995 F Date Time Provider Department 01/24/19 8:45 AM ANDREA VARGAS ([facility]) PIPER During your visit today, we recorded the following information about you: Pulse Respiration Blood pressure Weight 99/minute 18/minute 121/81 133.4 kg Height 1.575 m Andrea Vargas APRN.ASHWIN 01/24/2019 9:57 AM Signed Prudencio Min is a 23 [...] seconds. Was eating prior to the event. [place] nauseated. Was tired after the event. Has [...] disturbance, mood disorder and recent psychosocial stressors. HEMATOLOGIC/LYMPHATIC/IMMUNOLOGIC:Negative for prolonged bleeding, bruising easily or swollen [...] 5/5biceps, 5/5 wrist extension, and 5/5 hand herb digger. Finger extensor 5/5. Finger flexor 5/5. Pronation [...] jerk and symmetric Coordination: Finger-to- nose-finger and tggu-lr-gnza intact bilaterally. No ataxia of arms. No [...] with more than 50% of the total brwc-dr-nuqm time of the visit in counseling / coordination of care. There is no problem list on file for this patient. Office Visit on 01/24/19 - CONSULT TO NEUROLOGY Andrea Vargas MSN, POWDER COATER, SCHOOL SPEECH THERAPIST-C 1. This office note has been dictated [...] Rash Date Reviewed: 01/24/2019 Reviewed by: Andrea ([facility]) Georgina - Fully Assessed Reason for Visit: Established Patient [175] Primary Visit Diagnosis:Dizziness [R42] Other Visit Diagnoses:Vertigo [R42] Near syncope [R55] Order(s):CONSULT TO NEUROLOGY [9019] Order #: [id number]: 1 Prescriptions as of 01/24/2019 Sig: CITALOPRAM 20 MG TABLET daily IBUPROFEN 800 MG TABLET Take 800 mg by mouth as neede* ERGOCALCIFEROL (VITAMIN D2) 5* Take 50,000 Units by mouth on* Problem List As Of Date: 01/24/2019 (None) Encounter Status:Closed by ANDREA VARGAS on 01/24/19No[facility] [id number] ID: [id number] Author: Andrea Vargas Service: ? Author Type: [...] seconds. Was eating prior to the event. [place] nauseated. Was tired after the event. Has [...] disturbance, mood disorder and recent psychosocial stressors. HEMATOLOGIC/LYMPHATIC/IMMUNOLOGIC:Negative for prolonged bleeding, bruising easily or swollen [...] 5/5biceps, 5/5 wrist extension, and 5/5 hand herb digger. Finger extensor 5/5. Finger flexor 5/5. Pronation [...] jerk and symmetric Coordination: Finger-to- nose-finger and wqol-mf-homu intact bilaterally. No ataxia of arms. No [...] with more than 50% of the total eeml-cg-iifx time of the visit in counseling / coordination of care. There is no problem list on file for this patient. Office Visit on 01/24/19 - CONSULT TO NEUROLOGY Andrea Vargas MSN, POWDER COATER, SCHOOL SPEECH THERAPIST-C 1. This office note has been dictated [...] be at the discretion of your PCP/referring physicianCoshocton Regional Medical CenterCNOVon [id number] Office Visit (SYNCMN) PRUDENCIO MIN ([id number]) 1995 F Date Time Provider Department 12/24/18 [...] Finish Time: 1153 Referring Provider: ANDREA VARGAS ([facility]) [[id number]] Allergies As of Date: 12/24/2018 Noted Allergy Reaction AMOXICILLIN 2 - Rash PENICILLINS 06/30/2014 2 - Rash Date Reviewed: 12/24/2018 Reviewed by: Vince Ruano RN - Fully Assessed Primary Visit Diagnosis:Disorder of autonomic nervous system [G90.9] Other Visit Diagnoses:Orthostatic hypotension [I95.1] Orthostatic lightheadedness [R42] Tachycardia [R00.0] Order(s):INTERMITTENT PERIPHERAL DEVICE (DC,TN) [9800620] Order #: [id number]: 1 SALINE LOCK DISCONTINUE [3407829] Order #: [id number]: 1 Prescriptions as of 12/24/2018 Sig: CITALOPRAM 20 MG TABLET daily IBUPROFEN 800 MG TABLET Take 800 mg by mouth as neede* ERGOCALCIFEROL (VITAMIN D2) 5* Take 50,000 Units by mouth on* Problem List As Of Date: 12/24/2018 (None) Encounter Status:Closed by VINCE RUANO RN on 12/24/18[facility] Medical CenterEMILIOOLETElisa [id number] (NEAU) PRUDENCIO MIN ([id number]) 1995 F Date Time Provider Department 12/24/18 9:15 AM AUTONOMIC 1 NEUR MAIN [place] During your visit today, we recorded the following information about you: Referring Provider: ANDREA VARGAS ([facility]) [[id number]] Allergies As of Date: 12/24/2018 Noted Allergy [...] Encounter Status:Closed by WAYNE BLAIR MD on 12/25/18[facility] Medical CenterOBSOLETEProcedure (NEAU) PRUDENCIO MIN ([id number]) 1995 F Date Time Provider Department 12/24/18 7:45 AM AUTONOMIC 1 NEUR MAIN [place] During your visit today, we recorded the following information about you: Referring Provider: ANDREA VARGAS ([facility]) [[id number]] Allergies As of Date: 12/24/2018 Noted Allergy [...] Encounter Status:Closed by WAYNE BLAIR MD on 12/25/18[facility] [id number] ID: [id number] Author: Vince Ruano RN Service: ? Author [...] procedure: Vince Leone RN Procedure Finish Time: 1153NormalCGenesis HospitalANA Panel [id number] by EIA0.4 OD RatioNormalAdena Health System on above:Result Comment: OD Ratio is interpreted as follows: Negative <1.0 Positive >=1.0Performed By: #### CMP, MMA, B12, COPPER, SEPG, CBC, ENAID, ANA1 #### [place] [phone] #### B1VIT #### [facility] [address] [place] [address] [phone] by EIA, QualNegativeNormalNegativeUc [facility] Hospital Comment on above:Performed By: #### CMP, MMA, B12, COPPER, SEPG, CBC, ENAID, ANA1 #### [place] [phone] #### B1VIT #### [facility] [address] [place] [address] [phone] [phone] nRBC<0.01Normal<0.01[facility] on above:Performed By: #### CMP, MMA, B12, COPPER, SEPG, CBC, ENAID, ANA1 #### [place] [id number] [place] [phone] #### B1VIT #### [facility] [address] [place] [address] [phone] distribution width (RBC) [Ratio]14.4 %Tqmqkq18.5-15.0 [facility] on above:Performed By: #### CMP, MMA, B12, COPPER, SEPG, CBC, ENAID, ANA1 #### [place] [phone] #### B1VIT #### [facility] [address] [place] [address] [phone] (Bld) [Volume fraction]40.5 %Qryeqs55.0-46.0Uc [facility] HospitalComment on above:Performed By: #### CMP, MMA, B12, COPPER, SEPG, CBC, ENAID, ANA1 #### [place] [phone] #### B1VIT #### [facility] [address] [place] [address] [phone] (Bld) [Mass/Vol]12.6 g/mFDiyrcd08.5-15.5CGenesis HospitalComment on above:Performed By: #### CMP, MMA, B12, COPPER, SEPG, CBC, ENAID, ANA1 #### [place] [phone] #### B1VIT #### [facility] [address] [place] [address] [phone] (RBC) [Entitic mass]25.7 pGLow26.0-34.0[facility] Comment on above:Performed By: #### CMP, MMA, B12, COPPER, SEPG, CBC, ENAID, ANA1 #### [place] [phone] #### B1VIT #### [facility] [address] [place] [address] [phone] (RBC) [Mass/Vol]31.1 g/iMSnpjqm36.5-36.0[facility] on above:Performed By: #### CMP, MMA, B12, COPPER, SEPG, CBC, ENAID, ANA1 #### [place] [phone] #### B1VIT #### [place] [address] [phone] (RBC) [Entitic vol]82.7 gDCkirwi39.0-100.0[facility] Hospitalment on above:Performed By: #### CMP, MMA, B12, COPPER, SEPG, CBC, ENAID, ANA1 #### [place] [phone] #### B1VIT #### [facility] [address] [place] [address] [phone] mean volume (Bld) [Entitic vol]10.1 fLNormal9.0-12.7 [facility] HospitalComment on above:Performed By: #### CMP, MMA, B12, COPPER, SEPG, CBC, ENAID, ANA1 #### [place] [phone] #### B1VIT #### [place] [address] [phone] (Bld) [#/Vol]352 10*3/xBXkchgo169-064GzjlwgsqdUc West Chester HospitalComment on above:Performed By: #### CMP, MMA, B12, COPPER, SEPG, CBC, ENAID, ANA1 #### [place] [phone] #### B1VIT #### [place] [address] [phone] (Bld) [#/Vol]4.90 10*6/uLNormal3.90-5.20[facility] Hospitalment on above:Performed By: #### CMP, MMA, B12, COPPER, SEPG, CBC, ENAID, ANA1 #### [place] [phone] #### B1VIT #### [facility] [address] [place] [address] [phone] (Bld) [#/Vol]10.29 10*3/uLNormal3.70-11.00[facility] Hospitalment on above:Performed By: #### CMP, MMA, B12, COPPER, SEPG, CBC, ENAID, ANA1 #### [facility] [address] [place], [place] [address] #### B1VIT #### [facility] [address] [place] [address] [phone] 91-70-7864KHVKVozzbc [facility] [address] [place], [place] [address] November 29, 2018 To whom it may concern, This letter confirms Prudencio Min was seen today in the [facility] November 29, 2018. Sincerely, Staff of [facility]. ELECTRONICALLY SIGNED.NormalUc West Chester HospitalCNOVon [id number] Office Visit (NEADMN) MINPRUDENCIO Butt ([id number]) 1995 F Date Time Provider Department 11/29/18 9:00 AM ANDREA VARGAS ([facility]) NEADMN During your visit today, we recorded [...] was referred to cardiology and neurologist. The [employer] school professional did an EKG, echo and holter monitor and per the patient it was normal. I have no records today. The [employer] school professional wanted to do a tilt table test. The k 12 school professional from [facility] sent her to us at [facility]. EEG was done locally that was [...] sleep disturbance: difficulty falling and staying asleep HEMATOLOGIC/LYMPHATIC/IMMUNOLOGIC:Negative for prolonged bleeding, bruising easily or swollen [...] 5/5biceps, 5/5 wrist extension, and 5/5 hand herb digger. Finger extensor 5/5. Finger flexor 5/5. Pronation [...] of ankles. ? Coordination: Finger-to- nose-finger and nbfx-rt-omny intact bilaterally. No ataxia of arms. No [...] with more than 50% of the total fvml-nv-zeby time of the visit in counseling / [...] ID -TILT TABLE EVALUATION Andrea Vargas MSN, POWDER COATER, SCHOOL SPEECH THERAPIST-C 1. This office note has been dictated [...] monitor, MRI, EEG reports. Fax number is [phone] POTS Manual: Read the POTS manual online. This will help you understand your POTS diagnosis, work with your medical team, and includes detailed instructions and tips for improved daily living with POTS. [email or web address] Referring Provider: SELF [200] Allergies As of [...] Tachycardia [R00.0] Order(s):METHYLMALONIC ACID [SQMMA] Order #: [id number] FUTURE VITAMIN B12 BLOOD [SQB12] Order #: [id number] FUTURE COMP METABOLIC PANEL [SQCMP] Order #: [id number] FUTURE CBC [SQCBC] Order #: [id number] FUTURE VITAMIN B1/THIAMINE, WHOLE BLD [VDP3BIL] Order #: [id number] FUTURE COPPER BLOOD [SQCOPPER] Order #: [id number] FUTURE PROTEIN ELECTROPHORESIS W/INTERP [SQSEPG] Order #: [id number] FUTURE GANGLIONIC NACHR ANTIBODY [SQGNGLAB] Order #: [id number] FUTURE MIKE PANEL BLOOD SCRN [SQANA1] Order #: [id number] FUTURE ANTI GINNY ID [SQENAID] Order #: [id number] FUTURE NEURO CARDIO AUTONOMIC REFLEX W/WO TILT [5356846] Order #: [id number] TILT TABLE EVALUATION [58001EUC] Order #: [id number]: 1 NEURO QSART [0100582] Order #: [id number] [] acetylcholine 10% solution - cchs compoundingDisp: [...] monitor, MRI, EEG reports. Fax number is [phone] POTS Manual: Read the POTS manual online. This will help you understand your POTS diagnosis, work with your medical team, and includes detailed instructions and tips for improved daily living with POTS. [email or web address] Prescriptions ordered this encounter Disp Refills Start End ACETYLCHOLINE 10% SOLUTION - [facility] CO* 11/29/2018 12/24/2018 Route: IRRIGATION Encounter Status:Closed by ANDREA VARGAS on 11/29/18[facility] Metabolic Panelon [id number] [Mass/Vol]3.7 g/dLLow3.9-4.9 [facility] Hospitalment on above:Performed By: #### CMP, MMA, B12, COPPER, SEPG, CBC, ENAID, ANA1 #### [facility] [address] [place] [address] #### B1VIT #### [facility] [address] [place] [address] [phone] [Catalytic activity/Vol]90 U/DQifpba57-524JarvhjsyoSelect Medical TriHealth Rehabilitation Hospitalment on above:Performed By: #### CMP, MMA, B12, COPPER, SEPG, CBC, ENAID, ANA1 #### [facility] [address] [place] [address] #### B1VIT #### [facility] [address] [place] [address] [phone] [Catalytic activity/Vol]14 U/LNormal7-38[facility] on above:Performed By: #### CMP, MMA, B12, COPPER, SEPG, CBC, ENAID, ANA1 #### [place] [phone] #### B1VIT #### [facility] [address] [place] [address] [phone] gap [Moles/Vol]15 mmol/LNormal9-18[facility] Comment on above:Performed By: #### CMP, MMA, B12, COPPER, SEPG, CBC, ENAID, ANA1 #### [place] [phone] #### B1VIT #### [facility] [address] [place] [address] [phone] [Catalytic activity/Vol]13 U/MGpavmf86-62RxfnlyymhAdena Health System on above:Performed By: #### CMP, MMA, B12, COPPER, SEPG, CBC, ENAID, ANA1 #### [place] [phone] #### B1VIT #### [facility] [address] [place] [address] [phone] [Mass/Vol]0.2 mg/dLNormal0.2-1.3CGenesis Hospital Comment on above:Performed By: #### CMP, MMA, B12, COPPER, SEPG, CBC, ENAID, ANA1 #### [place] [phone] #### B1VIT #### [facility] [address] [place] [address] [phone] [Mass/Vol]9.3 mg/dLNormal8.5-10.2CGenesis Hospital Comment on above:Performed By: #### CMP, MMA, B12, COPPER, SEPG, CBC, ENAID, ANA1 #### [place] [phone] #### B1VIT #### [facility] [address] [place] [address] [phone] [Moles/Vol]102 mmol/ARzquiw16-168TynzqlqdiUc [facility] Hospital Comment on above:Performed By: #### CMP, MMA, B12, COPPER, SEPG, CBC, ENAID, ANA1 #### [place] [phone] #### B1VIT #### [facility] [address] [place] [address] [phone] [Moles/Vol]23 mmol/KRzogsi52-07LfiupvmifUc West Chester HospitalComment on above:Performed By: #### CMP, MMA, B12, COPPER, SEPG, CBC, ENAID, ANA1 #### [place] [phone] #### B1VIT #### [address] [address] [phone] [Mass/Vol]0.58 mg/dLNormal0.58-0.96[facility] HospitalComment on above:Performed By: #### CMP, MMA, B12, COPPER, SEPG, CBC, ENAID, ANA1 #### [place] [phone] #### B1VIT #### [facility] [address] [place] [address] [phone]- Amer.>60NormalCGenesis HospitalComment on above:Performed By: #### CMP, MMA, B12, COPPER, SEPG, CBC, ENAID, ANA1 #### [place] [phone] #### B1VIT #### [facility] [address] [place] [address] [phone]/1.73 sq M predicted among non-blacks MDRD (S/P/Bld) [Vol rate/Area]mL/min/{1.73_m2}NormalUc West Chester HospitalComment on above: Result Comment: eGFR (Estimated GFR) [...] the eGFR may not accurately reflect actual GFR.Performed By: #### CMP, MMA, B12, COPPER, SEPG, CBC, ENAID, ANA1 #### [facility] [place] [phone] #### B1VIT #### [facility] [address] [place] [address] [phone] [Mass/Vol]78 mg/nNKzkdas17-72UfpqmvczyUc [facility] Hospital Comment on above:Result Comment: The [place] Diabetes Association (ADA) provides guidance for cutoff [...] Standards of Medical Care in Diabetes 2016, [place] Diabetes Association. Diabetes Care. 2016.39(Suppl 1).Performed By: #### CMP, MMA, B12, COPPER, SEPG, CBC, ENAID, ANA1 #### [facility] [address] [place] [id number] #### B1VIT #### [facility] [address] [place] [address] [phone] [Moles/Vol]4.1 mmol/LNormal3.7-5.1CGenesis HospitalComment on above:Performed By: #### CMP, MMA, B12, COPPER, SEPG, CBC, ENAID, ANA1 #### [place] [phone] #### B1VIT #### [facility] [address] [place] [address] [phone] [Mass/Vol]7.4 g/dLNormal6.3-8.0[facility] Comment on above:Performed By: #### CMP, MMA, B12, COPPER, SEPG, CBC, ENAID, ANA1 #### [place] [phone] #### B1VIT #### [place] [address] [phone] [Moles/Vol]140 mmol/SPlihmg781-777EunmcmqadUc [facility] Hospital Comment on above:Performed By: #### CMP, MMA, B12, COPPER, SEPG, CBC, ENAID, ANA1 #### [place] [phone] #### B1VIT #### [place] [address] [phone] nitrogen [Mass/Vol]9 mg/dLNormal7-21[facility] Comment on above:Performed By: #### CMP, MMA, B12, COPPER, SEPG, CBC, ENAID, ANA1 #### [place] [phone] #### B1VIT #### [facility] [address] [place] [address] [phone] 86-54-2586Knrscb168 ug/bCGpggha82-799AylhibnnfUc West Chester HospitalComment on above:Result Comment: This test was developed and its performance characteristics determined by [facility] ([facility]). It has not been cleared or approved by the FDA. -[facility] is regulated under CLIA as qualified to perform high-complexity testing. This test is used for clinical purposes. It should not be regarded as investigational or for research.Performed By: #### CMP, MMA, B12, COPPER, SEPG, CBC, ENAID, ANA1 #### [place] [phone] #### B1VIT #### [address] [address] [phone] Antibody Panelon 90-25-7980Kvvfyrvxnm<0.2Normal<1.0[facility] on above:Result Comment: NEGATIVE Negative: <1.0 AI Positive: >0.9 AIPerformed By: #### CMP, MMA, B12, COPPER, SEPG, CBC, ENAID, ANA1 #### [place] [phone] #### B1VIT #### [address] [address] [phone] Antibody<0.2Normal<1.0[facility] on above:Result Comment: NEGATIVE Negative: <1.0 AI Positive: >0.9 AIPerformed By: #### CMP, MMA, B12, COPPER, SEPG, CBC, ENAID, ANA1 #### [place] [phone] #### B1VIT #### [address] [address] [phone] 1 Antibody<0.2Normal<1.0[facility] on above:Result Comment: NEGATIVE Negative: <1.0 AI Positive: >0.9 AIPerformed By: #### CMP, MMA, B12, COPPER, SEPG, CBC, ENAID, ANA1 #### [place] [id number] #### B1VIT #### [facility] [address] [place] [address] [phone] CRABBING MACHINE OPERATOR<0.2Normal<1.0[facility] on above:Result Comment: NEGATIVE Negative: <1.0 AI Positive: >0.9 AIPerformed By: #### CMP, MMA, B12, COPPER, SEPG, CBC, ENAID, ANA1 #### [place] [id number] #### B1VIT #### [address] [address] [phone] Antibody<0.2Normal<1.0[facility] on above: Result Comment: NEGATIVE Negative: <1.0 AI Positive: >0.9 AIPerformed By: #### CMP, MMA, B12, COPPER, SEPG, CBC, ENAID, ANA1 #### [place] [id number] #### B1VIT #### [address] [address] [phone] IgG Ab<0.2Normal<1.0[facility] on above:Result Comment: NEGATIVE Negative: <1.0 AI Positive: >0.9 AIPerformed By: #### CMP, MMA, B12, COPPER, SEPG, CBC, ENAID, ANA1 #### [address] [address] #### B1VIT #### [address] [address] [phone] Antibody<0.2Normal<1.0[facility] on above: Result Comment: NEGATIVE Negative: <1.0 AI Positive: >0.9 AIPerformed By: #### CMP, MMA, B12, COPPER, SEPG, CBC, ENAID, ANA1 #### [address] [place] [address] #### B1VIT #### [facility] [address] [place] [address] [phone] Antibody<0.2Normal<1.0[facility] on above: Result Comment: NEGATIVE Negative: <1.0 AI Positive: >0.9 AIPerformed By: #### CMP, MMA, B12, COPPER, SEPG, CBC, ENAID, ANA1 #### [facility] [address] [place] [phone] #### B1VIT #### [facility] [address] [place] [address] [phone] Antibody<0.2Normal<1.0[facility] on above: Result Comment: NEGATIVE Negative: <1.0 AI Positive: >0.9 AIPerformed By: #### CMP, MMA, B12, COPPER, SEPG, CBC, ENAID, ANA1 #### [place] [address] [place] [phone] #### B1VIT #### [facility] [address] [place] [address] [phone] nAChR Abon 46-57-3729Tvwchqlfbu nAChR Ab(NOTE)Normal [facility] on above:Result Comment: INTERPRETATION NEGATIVE This test did not detect abnormal levels of anti-ganglionic neuronal acetylcholine receptor antibodies (alpha 3AChR). TECHNICAL RESULTS Interpretive Result Table INTERPRETIVE RESULT: Negative TEST: anti-alpha 3AChR TECHNICAL RESULT: No abnormal levels of antibodies detected COMMENTS This result does not exclude a diagnosis of an autoimmune etiology for the neurological symptoms associated with paraneoplastic disorder. Recommendations: Health care providers, please contact the [facility] Client Services Department at if you wish to speak with a clinical area development consultant regarding this test result. Other testing available: [facility] recommends additional testing, if not already performed. [facility] currently offers the following antibody tests: anti-Hu, anti-Yo, anti-Zic4, anti-CV2, anti-Ma1, anti-Ta, anti-Ri, anti-Recoverin, anti-VGCC, anti-VGKC, anti-Amphiphysin, anti-NMDA, anti-GAD65, anti-LGI1, and anti-CASPR2. Please contact the [facility] Client Services Department or visit [facility] for information regarding additional testing that may [...] al. (2006) Semin Oncol 33: 270-98. (PMID: 39447823) 2. MAGDALENA Salinas, et al. (2011) Eur J Neurol 18: 19-e3. (PMID: 02129325) 3. Joanna Cabrera, et al. (2012) J Neurol Neurosurg Psychiatry 83: 638-45. (PMID: 60018179) 4. MR Maicol, et al. (2010) Oncologist 15: 603-17. (PMID: 97947628) 5. Carmelo Pena et al. (2008) Lancet Neurol 7: 327-40. (PMID: 19923674) 6. Carmelo Frederick et al. (2007) Orphanet J Rare Dis 2: 22. (PMID: 69941493) 7. Daquan Stokes et al. (2000) N Engl J Med 343: 847-55. (PMID: 84569020) This test was developed and its analytical performance characteristics have been determined by [facility]. It has not been cleared or approved by the U.S. Food and Drug Administration. This assay has been validated pursuant to the CLIA regulations and is used for clinical purposes. Laboratory oversight provided by Vince Mcfarlane, Ph.D., [facility], CLIA license [place], [facility] (CLIA# [id number]) Testing performed at: [facility] [address] [place] [id number] By: #### CMP, MMA, B12, COPPER, SEPG, CBC, ENAID, ANA1 ####[facility] [place], [place] [phone]#### B1VIT ####[facility] [address] [place] [address] [phone] Acid on 72-16-6297Wxiqpzjdseern Iokm223 nmol/FGbecky53-831IpvhkfpeqUc [facility] Comment on above:Result Comment: This test was developed and its performance characteristics determined by [facility]'s [facility] [place] ([facility]). It has not been cleared or approved by the FDA. [facility] is regulated under CLIA as qualified to perform high-complexity testing. This test is used for clinical purposes. It should not be regarded as investigational or for research.Performed By: #### CMP, MMA, B12, COPPER, SEPG, CBC, ENAID, ANA1 ####[facility] [address] [place], [place] [phone]#### B1VIT ####[facility] [address] [place], [place] [phone] 91-99-2119PKWWFAAFDEK ID: [id number] Author: Andrea Vargas Service: (none) Author Type: [...] was referred to cardiology and neurologist. The [employer] school professional did an EKG, echo and holter monitor and per the patient it was normal. I have no records today. The [employer] school professional wanted to do a tilt table test. The k 12 school professional from [facility] sent her to us at [facility]. EEG was done locally that was [...] sleep disturbance: difficulty falling and staying asleep HEMATOLOGIC/LYMPHATIC/IMMUNOLOGIC:Negative for prolonged bleeding, bruising easily or swollen [...] 5/5biceps, 5/5 wrist extension, and 5/5 hand herb digger. Finger extensor 5/5. Finger flexor 5/5. Pronation [...] of ankles. ? Coordination: Finger-to- nose-finger and jbne-el-enjg intact bilaterally. No ataxia of arms. No [...] with more than 50% of the total qlzl-qy-mtrw time of the visit in counseling / [...] ID -TILT TABLE EVALUATION Andrea Vargas MSN, POWDER COATER, SCHOOL SPEECH THERAPIST-C 1. This office note has been dictated [...] be at the discretion of your PCP/referring physicianCoshocton Regional Medical CenterProtein Electrophor.on 28-73-7723Fdaknxw [Mass/Vol]3.26 g/dLLow3.37-4.23[facility] Comment on above:Performed By: #### CMP, MMA, B12, COPPER, SEPG, CBC, ENAID, ANA1 ####[place] [address] [place], [place] [phone]#### B1VIT ####[facility] [address] [place], [place] [phone] 1 Globulin0.27 gm/dLNormal0.18-0.31[facility] HospitalComment on above:Performed By: #### CMP, MMA, B12, COPPER, SEPG, CBC, ENAID, ANA1 ####[facility] X[address] [place], [place] [phone]#### B1VIT ####[facility] Sf[address]adjfjwrq[address] [place], [place] [phone] 2 Globulin0.81 gm/dLNormal0.52-0.97[facility] HospitalComment on above:Performed By: #### CMP, MMA, B12, COPPER, SEPG, CBC, ENAID, ANA1 ####[facility] [address] [phone]#### B1VIT ####[facility] [address] [phone] Globulin1.16 gm/dLNormal0.84-1.36[facility] Hospitalment on above:Performed By: #### CMP, MMA, B12, COPPER, SEPG, CBC, ENAID, ANA1 ####[place] [phone]#### B1VIT ####[address] [phone] Globulin1.50 gm/dLHigh0.70-1.44[facility] on above:Performed By: #### CMP, MMA, B12, COPPER, SEPG, CBC, ENAID, ANA1 ####[place] [phone]#### B1VIT ####[address] [phone] COMMENTNormalCGenesis Hospital Comment on above:Result Comment: No definitive M protein is identified on protein electrophoresis.Performed By: #### CMP, MMA, B12, COPPER, SEPG, CBC, ENAID, ANA1 ####[address] [phone]#### B1VIT ####[address] [phone] Tigre Concentratn0.00 gm/dLNormal0.00[facility] on above:Performed By: #### CMP, MMA, B12, COPPER, SEPG, CBC, ENAID, ANA1 ####[address] [phone]#### B1VIT ####[address] [phone] [Mass/Vol]7.0 g/dLNormal6.0-8.4CCincinnati Shriners Hospital on above:Performed By: #### CMP, MMA, B12, COPPER, SEPG, CBC, ENAID, ANA1 ####[address] [phone]#### B1VIT ####[address] [phone] [Mass/Vol]N/ANormalCCincinnati Shriners Hospital on above:Performed By: #### CMP, MMA, B12, COPPER, SEPG, CBC, ENAID, ANA1 ####[address] [phone]#### B1VIT ####[address] [phone] Staff ReviewReviewed by Carrington Akers MD ([id number])[facility] on above:Performed By: #### CMP, MMA, B12, COPPER, SEPG, CBC, ENAID, ANA1 ####[address] [phone]#### B1VIT ####[address] [phone] B1,Whole Bldon 52-60-2493Atuymun B1 Whole Sbs981 nmol/LExugvv29-985SbxdmnhsqAdena Health System on above:Result Comment: (NOTE) INTERPRETIVE INFORMATION: Vitamin B1, Whole Blood This assay measures the concentration of thiamine diphosphate (TDP), the primary active form of vitamin B1. Approximately 90 percent of vitamin B1 present in whole blood is TDP. Thiamine and thiamine monophosphate, which comprise the remaining 10 percent, are not measured. Test developed and characteristics determined by [facility]. See Compliance Statement B: [employer]/CS Performed by [facility], [address] [place] [id number] [email or web address], Nam Andres MD, Lab. DirectorPerformed By: #### CMP, MMA, B12, COPPER, SEPG, CBC, ENAID, ANA1 ####[facility] [address] [place], [place] [phone]#### B1VIT ####[facility] Hfkwpeilhfly[address] [place], [place] [phone] B12on 50-37-4586Kyduvwzdk (Vitamin B12) [Mass/Vol]419 pg/qLWrgrqx635-8437Odeegkeop Clinic ClevelandCommclaren [facility] [place] on above:Performed By: #### CMP, MMA, B12, COPPER, SEPG, CBC, ENAID, ANA1 #### [facility] Aud[address] [place], [place] [address] #### B1VIT #### [facility] [address] [place] [address] [phone] Vital Signs Date TimeVital SignValuePerforming PgufmubidTkabktoc28-69-6928 09:58-0400Body fypwfy837.9 cmCorey Connie DO Work Phone: [phone][facility]'s HospitalZxtgojjoif75-47-6480 09:58-0400Body mass index (BMI) [Ratio]50.26 kg/v1Ohvnw Connie DO Work Phone: [phone][facility]'s HospitalVdhkzwubax85-00-3928 09:58-0400Body tewyli357.66 kgCorey Connie DO Work Phone: [phone][facility] HospitalStqcyyrrdi95-70-4108 09:58-0400Diastolic blood tukyfyea79 mm[Hg]Mark Connie DO Work Phone: [phone]. Luke's HospitalSjdsfoenaf19-75-3595 09:58-0400Systolic blood jgsjabvq781 mm[Hg]Mark Connie DO Work Phone: [phone]. Luke's HospitalImqqookdkm09-77-2996 13:13-0400Body pcuypo367.9 Akhil LIEBERMAN Work Phone: [phone]. Luke's HospitalDxswdknkeo92-56-4851 13:13-0400Body mass index (BMI) [Ratio]49.88 kg/m2Megha Shaw PA Work Phone: [facility] HospitalWnoyvkqiaf78-71-8071 13:13-0400Body vvfcpa537.75 kgMegha Shaw PA Work Phone: [facility] HospitalCzhokrpqyt55-65-1575 13:13-0400Diastolic blood ilitnqfu91 mm[Hg]Megha Shaw PA Work Phone: [facility] HospitalJjnyytoane29-96-6535 13:13-0400Systolic blood isylwtxx270 mm[Hg]Megha Shaw PA Work Phone: [facility] HospitalPudvubxfpm31-48-0125 10:33-0400Body oflkup057.9 cmCorey Connie DO Work Phone: [phone] [place], [place] [address]Xssoocrnvm74-59-4985 10:33-0400Body mass index (BMI) [Ratio]49.88 kg/z6Mvaoo Connie DO Work Phone: [phone] [place], [place] [address]Kearevzdvr93-07-3693 10:33-0400Body mxhytu395.75 kgCorey Connie DO Work Phone: [facility] HospitalQfhbwxrqxv19-57-4742 10:33-0400Diastolic blood wxzraafd37 mm[Hg]Mark Connie DO Work Phone: [phone] [place], [place] [address]Dqzjfbjtqa88-06-0619 10:33-0400Systolic blood jjygpbgx685 mm[Hg]Mark Connie DO Work Phone: [facility] HospitalRbefnckwja02-34-9375 11:21-0400Diastolic blood alopcecj65 mm[Hg]Janine Funez MD Work Phone: [phone] iPling [facility] CenterHysslu79-76-0460 11:21-0400Heart rate72 /minJanine Funez MD Work Phone: [phone] iPling [facility] CenterSsluol78-79-9190 11:21-0400 Respiratory rate16 /minJanine Funez MD Work Phone: [phone] [facility] CenterArtspace [facility] CenterKcuswq85-39-9148 11:21-1175UtO0% (BldA) [Mass fraction]95 %Janine Funez MD Work Phone: [phone] iPling [facility] HospitalInspiration BiopharmaceuticalsSpvuil59-26-4685 11:21-0400Systolic blood sdqrpbol207 mm[Hg]Janine Funez MD Work Phone: [phone] iPling [facility] HospitalInspiration BiopharmaceuticalsMzdoce05-10-3099 10:10-0400Body .9 cmJanine Funez MD Work Phone: [phone] iPling [facility] HospitalInspiration BiopharmaceuticalsHrylpp22-00-2580 10:10-0400Body mass index (BMI) [Ratio]49.32 kg/n6IlzhetJanine Funez MD Work Phone: [phone] [facility] CenterArtspace [facility] HospitalInspiration BiopharmaceuticalsWvahfo78-68-4219 10:10-0400Body ocpiukempko18.3 [degF]Janine Funez MD Work Phone: [phone] [facility] CenterArtspace [facility] HospitalInspiration BiopharmaceuticalsUmixad70-26-6985 10:10-0400Body ircdbi119.39 kgJanine Funez MD Work Phone: [phone] iPling [facility] HospitalInspiration BiopharmaceuticalsYboskx18-91-9830 10:05-0400Body mass index (BMI) [Ratio]50.98 kg/g4Jrcvf Connie DO Work Phone: [facility] HospitalLkdaztpcjy57-50-6614 10:05-0400Body qpuxnp650.38 kgCorey Connie DO Work Phone: [facility] HospitalSsenkzgolt76-22-2540 10:05-0400Diastolic blood egszijec29 mm[Hg]Mark Connie DO Work Phone: [facility] HospitalAvwbwqjblw00-19-9271 10:05-0400Systolic blood mm[Hg]Mark Connie DO Work Phone: [facility] HospitalZnewokopet52-87-1481 09:05-0400Body ptcils519.94 cmBailee Myers DO Work Phone: [facility]05-24-2025 09:05-0400 Body kkkkhkhaeet20.3 [degF]Bailee Myers DO Work Phone: [phone] [place], [place] [address]832505-24-2025 09:05-0400 Body .6 kgBailee Myers DO Work Phone: [phone] [place], [place] 9832505-24-2025 09:05-0400 Diastolic blood oauzahts27 mm[Hg]Bailee Myers DO Work Phone: [phone] [place], [place] 9832505-24-2025 09:05-0400 Heart rate91 /minBailee Myers DO Work Phone: [phone])136-[address] [place], [place] [address]832505-24-2025 09:05-0400 Respiratory rate20 /minBailee Carter DO Work Phone: [phone])[address]05-24-2025 09:05-0400 SaO2% (BldA) [Mass fraction]98 %Bailee Myers DO Work Phone: [phone] [place], [place] 9832505-24-2025 09:05-0400 Systolic blood mm[Hg]Bailee Myers DO Work Phone: [phone] [place], [place] 9832502-16-2025 05:00-0500 Diastolic blood nvpselft04 mm[Hg][facility] 11-23-2024 05:00-0500Heart rate79 /minPremier Health02-16-2025 05:00-0500Mean blood yknmeusl622 mm[Hg][facility]02-16-2025 05:00-5048DbE9% (BldA) [Mass fraction]98 %[facility]02-16-2025 05:00-0500Systolic blood pressure 140 mm[Hg][facility]02-16-2025 04:00-0500 Diastolic blood uvllwipr07 mm[Hg][facility] 11-23-2024 04:00-0500Heart rate84 /minPremier Health02-16-2025 04:00-0500Mean blood spbqnhja03 mm[Hg][facility]02-16-2025 04:00-5136ZrA1% (BldA) [Mass fraction]96 %[facility]02-16-2025 04:00-0500Systolic blood pressure 122 mm[Hg][facility]02-16-2025 03:56-0500 Diastolic blood mm[Hg][facility] 11-23-2024 03:56-0500Heart rate83 /minPremier Health02-16-2025 03:56-0500Mean blood alhhekgp747 mm[Hg][facility]02-16-2025 03:56-0500Nursing Progress Note ReasonOther: up to bathroom and back to bed. urine obtained. states [facility]02-16-2025 03:56-3954AgA0% (BldA) [Mass fraction]95 %[facility]02-16-2025 03:56-0500Systolic blood gvoohfxj404 mm[Hg][facility]02-16-2025 03:05-0500Body hskgyzmqxpt86.34 [degF][facility]02-16-2025 03:05-0500Heart rate87 /minPremier Health02-16-2025 03:05-0500Respiratory rate20 /minPremier Health09-04-2024 09:44-0400Body .94 cmDNP Elizabeth Cruz Work Phone: [facility]09-04-2024 09:44-0400 Body mass index (BMI) [Ratio]52.7 kg/m2DNP Elizabeth Cruz Work Phone: [facility]09-04-2024 09:44-0400 Body mqqawpimbgd54.4 [degF]DNP Elizabeth Kaple Work Phone: [phone] [place], [place] 0763109-04-2024 09:44-0400 Body fdgsby761.55 kgDNP Elizabeth Kaple Work Phone: [phone] [place], [place] 0763109-04-2024 09:44-0400 Diastolic blood dbagkxjw19 mm[Hg]DNP Elizabeth Kaple Work Phone: [phone])[address] [place], [place] 0763109-04-2024 09:44-0400 Heart rate79 /minDNP Elizabeth Kaple Work Phone: [phone])[address] [place], [place] 0763109-04-2024 09:44-0400 SaO2% (BldA) [Mass fraction]95 %DNP Elizabeth Kaple Work Phone: 1(155)[address] [place], [place] 0763109-04-2024 09:44-0400 Systolic blood bkdmgiei275 mm[Hg]DNP Elizabeth Kaple Work Phone: [phone])[address] [place], [place] 0763103-28-2024 11:32-0400 Body mbxxvy466.94 cmDNP Elizabeth Kaple Work Phone: [phone])[address] [place], [place] 0763103-28-2024 11:32-0400 Body mass index (BMI) [Ratio]53.5 kg/m2DNP Elizabeth Kaple Work Phone: 1(487)[address] [place], [place] 0763103-28-2024 11:32-0400 Body .48 kgDNP Elizabeth Kaple Work Phone: 1(226)[address] [place], [place] 0763103-28-2024 11:32-0400 Diastolic blood mm[Hg]DNP Elizabeth Kaple Work Phone: 1(295)[address] [place], [place] 0763103-28-2024 11:32-0400 Heart rate94 /minDNP Elizabeth Kaple Work Phone: 1(641)[address] [place], [place] 0763103-28-2024 11:32-0400 SaO2% (BldA) [Mass fraction]98 %DNP Elizabeth Nancy Work Phone: 1(119)4-[address] [place], [place] 2063703-28-2024 11:32-0400 Systolic blood yuaqprro937 mm[Hg]DNP Elizabeth Nancy Work Phone: 1(705)0-[address] [place], [place] 2063703-13-2024 12:49-0400 Blood Pressure LocationFRANCNGOC SON 051-4730Iziwky-IwszyOhiohealth [facility] Sxoa41-31-5384 12:49-0400Body efsjgwaisdf087.22 [degF][facility] 264-6422Sglmew-ZiuvpOhiohealth [facility] Yebf40-71-4662 12:49-0400Diastolic blood tivyurck55 mm[Hg][facility]ITALTIZ 259-8671Blhnyj-FfstoOhiohealth [facility] Gtca52-48-6946 12:49-0400Heart adze775 /minFRANCNGOC POPETIZ 954-9974Zlfotr-NoeoeOhiohealth [facility] Yqvu88-40-6511 12:49-7582MrZ7% (BldA) [Mass fraction]97 %[facility] 335-4595Knjfvm-UjymsOhiohealth [facility] Fugq16-79-9313 12:49-0400Systolic blood moeozijw200 mm[Hg][facility]Z 162-0163Clwtxi-RwjvgOhiohealth [facility] Eiyj51-12-8380 14:06-0500Body .94 cmDNP Elizabeth Nancy Work Phone: 1(447)695-[address] [place], [place] 2063702-27-2024 14:06-0500 Body mass index (BMI) [Ratio]53.9 kg/m2DNP Elizabeth Cruz Work Phone: 1(176)4-[facility]02-27-2024 14:06-0500 Body uzcrjm477.47 kgDNP Elizabeth Cruz Work Phone: 1(037)[address]02-27-2024 14:06-0500 Diastolic blood mm[Hg]DNP Elizabeth Cruz Work Phone: 1(994)[address] [place], [place] 0763102-27-2024 14:06-0500 Heart rate95 /minDNP Elizabeth Cruz Work Phone: 1(654)[address] [place], [place] 0763102-27-2024 14:06-0500 Respiratory rate18 /minDNP Elizabeth Cruz Work Phone: 1(480)[address] [place], [place] 0763102-27-2024 14:06-0500 SaO2% (BldA) [Mass fraction]97 %DNP Elizabeth Cruz Work Phone: 1(634)[address] [place], [place] 0763102-27-2024 14:06-0500 Systolic blood soreeeaa672 mm[Hg]DNP Elizabeth Cruz Work Phone: 1(204)[address] [place], [place] 0763108-11-2023 20:45-0400 Diastolic blood mm[Hg]Mirza Mcmullen [employer] Work Phone: [facility] [employer]08-11-2023 20:45-0400Heart rate88 /Tameka Mcmullen [employer] Work Phone: [employer] [employer] WWLMTF45-07-8044 20:45-0400 Respiratory rate21 /Tameka Mcmullen [employer] Work Phone: [phone] SECYour Image by Brooke [facility] HOSPITALGLAHNG88-30-2634 20:45-4045BpO5% (BldA) [Mass fraction]99 %Mirza Mcmullen [employer] Work Phone: [phone])3652600BON SECAvista08-11-2023 20:45-0400Systolic blood raelvfin361 mm[Hg]Mirza Mcmullen [employer] Work Phone: [phone] SECYour Image by Brooke [facility] GVOHTL42-86-6056 19:50-0400Body mezsoh872.9 Darryn Mcmullen [employer] Work Phone: [phone])3652600BON SECAvista08-11-2023 19:50-0400Body mass index (BMI) [Ratio]47.61 kg/m2Mirza Mcmullen APRN - [employer] Work Phone: bon [facility]08-11-2023 19:50-0400Body nihvqlvqjvu08.2 [degF]Mirza Mcmullen [employer]N [employer] Work Phone: bon [facility]08-11-2023 19:50-0400Body lmalwq251.31 kgMirza Mcmullen APRN - [employer] Work Phone: bon [facility]07-08-2023 13:36-0400Body pubqzvlmrst76.7 [degF]Barak Greer [address] [place], [place] 6810207-08-2023 13:36-0400 Diastolic blood npvhfrpu02 mm[Hg]Barak Greer [address]07-08-2023 13:36-0400Heart rate79 /Jean-Claude Greer [address] [place], [place] 6810207-08-2023 13:36-0400 Respiratory rate18 /Jean-Claude Greer [address] [place], [place] 6810207-08-2023 13:36-1074EbB6% (BldA) [Mass fraction]98 %Barak Greer [address] [place], [place] 6810207-08-2023 13:36-0400 Systolic blood mm[Hg]Barak Greer [address] [place], [place] 6810207-30-2022 02:27-0400 Diastolic blood uxaowalu96 mm[Hg]Carolynjavan Castanodamaris [address] [place], [place] 6810207-30-2022 02:27-0400Heart rate85 /minTiffanie Dokken [facility]07-30-2022 02:27-0400Mean blood fahpfzba21 mm[Hg]Kaylinn Dokken [address] [place], [place] 7954407-30-2022 02:27-0400 Systolic blood zgsonutz180 mm[Hg]Tiffanie Dukes [address] [place], [place] 7954407-30-2022 00:59-0400Body upzzqshteda26.88 [degF]Tiffanie Dukes [address] [place], [place] 7954407-30-2022 00:59-0400 Diastolic blood mibbyjsa15 mm[Hg]Tiffanie Dukes [address] [place], [place] 7954407-30-2022 00:59-0400Heart lqaz304 /Michael Dukes [address] [place], [place] 7954407-30-2022 00:59-0400 Respiratory rate20 /Michael Dukes [address] [place], [place] 7954407-30-2022 00:59-3928YtJ6% (BldA) [Mass fraction]98 %Tiffanie Dukes [address] [place], [place] 7954407-30-2022 00:59-0400 Systolic blood ensxupkt996 mm[Hg]Tiffanie Dukes [address] [place] [address] Encounters Encounter DateEncounter TypeCare ProviderFacilityStart: 07-28-2025 End: 02-83-3184Qlivspf encounter procedureCorey ConnieOverlay Studio Phone: NOBQ [place] OBGYNComment on above:Pre-op examination; Menorrhagia with regular cycle; Abnormal uterine bleeding; Pelvic pain in female; Cyst of right ovaryStart: 07-28-2025 End: 02-49-1710Seeklsderzjey examination doneCorey ConnieOverlay Studio Phone: NOGR HealthcareStart: 07-28-2025 End: 77-50-8176gufsefaugtUWCGG FAZIONot AvailableStart: 07-28-2025 End: 48-35-0689Gmwfwrbj ReferredCorey Connie-LAB Path Spec [place] HospStart: 06-17-2025 End: 89-54-3723Psuztw flowsHenrietta LIEBERMAN Work Phone: [facility] [place] OBGYNStart: 06-17-2025 End: 61-65-8830Rkkxdj flowsheetMegha LIEBERMAN Work Phone: [facility] [place] OBGYNStart: 06-17-2025 End: 61-48-6249Jllspw outpatient visit 15 minutesAmy Colin LIEBERMAN Work Phone: [facility] [place] OBGYNComment on above:Weight gain; Encounter to discuss test results; Encounter for weight managementStart: 06-17-2025 End: 71-79-0731kfucksmijeFAQ Sohail AvailableStart: 06-09-2025 End: 99-33-3432chmoikzemhNLJEK FAZIONot AvailableStart: 05-21-2025 End: 81-10-6995Wpvnri flowsheetCorey Connie DO Work Phone: [facility] [place] OBGYNStart: 05-21-2025 End: 46-92-0120Bnibjm flowsheetCorey Connie DO Work Phone: [facility] [place] OBGYNStart: 05-21-2025 End: 49-71-1632Pynbsw outpatient visit 15 minutesCorey Connie DO Work Phone: [facility] [place] OBGYNComment on above:Hospital discharge follow-up; Cyst of right ovary; Pelvic pain in female; Encounter for management of menstrual issue; Encounter for weight managementStart: 05-21-2025 End: 38-73-4880ahxyjipeimEFBCN FAZIONot AvailableStart: 03-20-2025 End: 29-36-0419zoaumwcjstIFHLIG [facility] Centertart: 03-20-2025 End: 96-96-9504Lkqevbevdg hospital visit by Grabiel Funez MD Work Phone: [facility] CT ScanComment on above:Blood per rectum; Left lower quadrant abdominal painStart: 03-19-2025 End: 07-40-1014hziedktghbCZSVQQBanner Casa Grande Medical Centertart: 03-19-2025 End: 27-11-2070Jreavwgawz hospital visit by physicianJanine Funez MD Work Phone: [facility] ORComment on above:Blood per rectum Start: 03-05-2025 End: 51-75-9624Ugljxn flowsheetCorey Connie DO Work Phone: [facility] BCP OBStart: 03-05-2025 End: 73-80-9709Pihcss flowsheetCorey Connie DO Work Phone: [facility] BCP OBStart: 03-05-2025 End: 39-00-1727Fcxygowmp Result EncounterCorey Connie DO Work Phone: noms External Department UnsolicitedStart: 03-05-2025 End: 51-76-1763Vohvourf Result EncounterCorey Connie DO Work Phone: n[facility] External Department UnsolicitedStart: 03-05-2025 End: 90-30-1575Mwrfafa encounter procedureCorey Connie DO Work Phone: [facility] Work Phone: Start: 03-05-2025 End: 22-22-5208Oozdyxed preventive med est patient 18-39 yrsCorey Connie DO Work Phone: [facility] OBComment on above:Well woman exam with routine gynecological exam; Pain in female genitalia on intercourse; Upper back painStart: 03-05-2025 End: 29-96-7621eeciyonadtSGZXR FAZIONot AvailableStart: 02-28-2025 End: 65-10-1690Hrurkdaoq department patient visitGregory Carter DO Work Phone: [facility] Work Phone: Start: 11-23-2024 End: 57-00-1711Sonjktsfz department patient visitAstrit Clyde AggarwalariFacility:[facility] Start: 06-11-2024 End: 84-02-9896xpsjkjyxanMQU Jennifer Kaple Work Phone: [facility] Work Phone: Start: 06-11-2024 End: 20-46-9085Vkieesb encounter procedureDNP Elizabeth Cruz Work Phone: [facility] [place] Work Phone: Start: 01-03-2024 End: 49-73-3877yjppbqxjsyUCL Elizabeth Cruz Work Phone: [facility] Work Phone: Start: 01-03-2024 End: 51-79-3738Vsekiji encounter procedureDNP Elizabeth Cruz Work Phone: [facility] [place] Work Phone: Start: 12-28-2023 End: 13-47-0892nveclietpgPGD Jennifer Kaple Work Phone: [facility] Work Phone: Start: 12-28-2023 End: 71-15-2592Qrxrbvb encounter procedureDNP Elizabeth Cruz Work Phone: [facility] Centertart: 12-19-2023 End: 83-64-7654Rgo Drop offFRANCISCO SON [facility] Start: 12-19-2023 End: 65-29-6201Pcktvab encounter procedureFRANCISCO SON 887-6779Jtcaxi-JtefdOhiohealth [facility] Start: 12-04-2023 End: 33-57-1461Msymwwq encounter procedureDNP Elizabeth Cruz Work Phone: [facility] [place] Work Phone: Start: 05-24-2023 End: 37-85-7857Qdbjvntwly hospital visit by physicianPhone Pre Admission Testing [facility]-Admission TestingComment on above:No ShowStart: 05-18-2023 End: 85-69-8173Wibkvtgtr department patient visitSara Elías [employer] Work Phone: [facility] EDComment on above:Calculus of gallbladder without cholecystitis without obstruction (Primary Dx)Start: 04-14-2023 End: 31-27-2670Fpvxkobql department patient visitBarak Greer [facility] Start: 11-13-2022 End: 33-51-7390xhkvlmgrvsDA RAMON PAY .Facility:A8Mhnbe: 11-09-2022 End: 74-77-8922xfdvfwhrltHP MARK CONNIE .Facility:Q3Iltwi: 86-59-6634Njvjxgiho for preprocedural laboratory examinationDR MARK CONNIE .[facility] Start: 11-07-2022 End: 41-03-1610hivowpoqahBU MARK CONNIE .Facility:V7Lsubn: 11-07-2022 End: 90-66-3733Dwpvdxpan for preprocedural laboratory examinationDR MARK CONNIE .Facility:O1Wijjw: 70-41-0044Zjhvbpzhb for other preprocedural examinationDR MARK CONNIE .[facility] Systemtart: 10-30-2022 End: 44-31-0282vkhksvtqudKQQDPB SNYDERFacility:G6Gkbei: 10-30-2022 End: 77-90-0327Uyctnfzkr for other preprocedural examinationANGELA TRIANA Facility:A8Hnswa: 09-22-2022 End: 26-49-5694xqwmyjetneGE MARK CONNIE .Facility:D3Gkmob: 09-18-2022 End: 80-59-9263Zfcquubhyj and management of inpatientDR MARK CONNIE .Facility:H1 Start: 09-15-2022 End: 21-17-3615qssxcytmtcZT MARK CONNIE .Facility:V4Cwxcr: 08-29-2022 End: 18-48-5542xnhqzbbfhiVN MARK CONNIE .Facility:X2Xidwm: 08-21-2022 End: 13-56-2133uyxzkikmlrJP BAILEE SKINNER .Facility:G5Giuve: 08-07-2022 End: 18-19-3517vcjgpacmfoDP MARK CONNIE .Facility:C4Quujy: 07-06-2022 End: 85-02-3129ayiwwyvjvoOL MARK CONNIE .Facility:J8Buuzq: 06-14-2022 End: 13-92-3969bptdivmtxzUH MARK CONNIE .Facility:Z2Cdjsi: 06-10-2022 End: 36-31-3676lonywyecelOD MARK CONNIE .Facility:S2Mssap: 05-16-2022 End: 50-94-3499ohyvwbauleCK MAKR CONNIE .Facility:P2Rqcny: 05-06-2022 End: 80-91-1864Psorkmhdv department patient visitTiffanie Montes De Oca [facility]eline [facility] Start: 04-01-2022 End: 78-31-6279obptinjaowKH NONE LISTED REQUESTFacility:A9Wmksg: 03-08-2022 End: 68-67-9504yrodxmiaapVW MARK CONNIE .Facility:H4Urvuj: 02-17-2022 End: 06-67-4005zqybglgqxwGN MARK CONNIE .Facility:P3Psvvt: 01-25-2022 End: 96-26-4164bccvbzomdnFX MARK CONNIE .Facility:L1Volxq: 03-14-2018 End: 66-18-6593Iesjubqjjyvh Rebekah Walton CNP Work Phone: [facility] Procedures DateProcedureProcedure DetailPerforming ClinicianStart: 01-09-6432Xmywd test visual color cmprsn methsCorejose alejandro Rosales DO Work Phone: Start: 37-73-9959Wwpph test visual color cmprsn Gregory Funez MD Work Phone: Start: 39-36-7669GhqfzbczsvxQjqmvf Khallafi MD Work Phone: Start: 35-01-4837PZKGTSOZD VAGINITIS (HTRX)Mark Rosales DO Work Phone: Start: 87-83-8805HCS,APTIMA HPV,AGE GDLNCorejose alejandro Rosales DO Work Phone: Start: 15-88-7126Srotrvtfmg examination of kneeDNP Elizabeth Cruz Work Phone: Start: 74-10-2712Ssxp cerv/vag auto thin layer prep mnl screenCorey Connie CHAPMAN Work Phone: Start: 38-75-4039Aq abdominal real time w/image limitedHoptevin Rios PA-C Work Phone: Start: 09-05-1206Rvx routine ecg w/least 12 lds w/i&r Zainab Rios PA-C Work Phone: Start: 05-18-2023 End: 89-16-6271Ualzloiglgzga metabolic panelZainab Rios PA-C Work Phone: Start: 00-33-3671Oodragowkb of Products of Conception, Low Cervical, Open ApproachDR MARK ROSALES .Start: 40-08-1521Smtkvcda section Tiffanie Dukes Start: 80-27-3196Clnacxez fiberoptic sigmoidoscopy Tiffanie Dukes Start: 01-45-1007Pazkcdshidm observation [Identifier] in Cervix by Jamaal Walton CNP Work Phone: Start: 04-19-2173Wdyyvsnc pilonidal cyst/sinus simple Tiffanie Dukes Start: 83-05-0241RsbyufmybtooIbijyko Dokken AppendectomyAppendectomy( Confirmed )Tiffanie Dukes CholecystectomyFRANCNGOC SON Plan of Treatment DateCare ActivityDetailAuthorStart: 70-35-5262DThJ/Tdap/Td vaccine (2 - Tdap) DTaP/Tdap/Td vaccine (2 - Tdap)[facility]AStart: 03-08[facility]2026 End: 18-40-4864Joijlko encounter procedureNOMS BCP OBStart: 49-37-5500Chahpnxmbl ScreenDepression ScreenBon [facility]art: 07-28-2025 End: 86-91-2898Cconyhg encounter hnfyhqdxx58/21/2025 9:30 AM EDT Procedure Visit MATTEO RIVERA [address] [place] [place] [phone] Mark Rosales, DO [address] [place] [address] NOMDaquan MELTONGYNStart: 06-18-2025 End: 02-99-6974Khtgkgi encounter nbndobpcf25/11/2025 10:30 AM EDT Procedure Visit MATTEO RIVERA [address] [place], [id number] Mark Rosales, DO [address] [place] [address] NOMDaquan WALDRONtart: 06-17-2025 End: 84-85-4008Jcfegey encounter udrluhxlk26/10/2025 1:00 PM EDT Office Visit MATTEO RIVERA [address] [place] [address] Megha Shaw PA [address] [place] [address] ArrivedAILYN Loree OBGYNComment on above:ArrivedStart: 05-21-2025 End: 32-95-7729WRNCUPDR Lab Routine Pelvic pain in female Encounter for management of menstrual issue Expected: 05/21/2025 (Approximate), Expires: 05/21/2026NOMS HealthcareComment on above:Expected: 05/21/2025 (Approximate), Expires: 05/21/2026Start: 05-21-2025 End: 99-60-7545HK PelvisUS Pelvis w/ TV Imaging Routine Pelvic pain in female Encounter for management of menstrual issue Expected: 05/21/2025, Expires: 05/21/2026NOMS HealthcareComment on above:Expected: 05/21/2025, Expires: 05/21/2026Start: 05-21-2025 End: 36-41-5148Mtbwijr encounter nmgemsbbq42/14/2025 10:20 AM EDT Office Visit MATTEO RIVERA [address] [place] [place] [phone] Mark Rosales DO [address] [place] [address] ArrivedAILYN Loree OBGYNComment on above:ArrivedStart: 07-43-8267Ckvtmcolv vaccinationFlu vaccine (Season Ended)Daniel Baker [facility] CenterStart: 04-16-2025 End: 58-85-9604Hnysdeo encounter thxxarbml23/10/2025 10:00 AM EDT Office Visit [facility] [address] [place] [address] Elizabeth Ruiz, [employer] [address] [place] [address] 2 week f/u after [facility] GastroenterologyComment on above:2 week f/u after colonStart: 03-20-2025 End: 59-01-7388Ckrlgnb encounter satdulebi31/13/2025 9:00 AM EDT [facility] [address] [facility] [place], [place] [id number] Janine Funez MD [address] [facility] [place] [address] epic//ptMercLancaster Municipal [facility] CT ScanComment on above:epic//pt Start: 03-19-2025 End: 11-19-7108Xpgkouzjxjr flx dx w/collj spec when pfrmdCOLONOSCOPY DIAGNOSTIC Blood per rectum 03/19/2025 10:35 AM EDTMLOZ GASTRO CENTERStart: 03-05-2025 End: 79-94-4524Bslffdy encounter zbvpupypt17/29/2025 10:00 AM EDT Office Visit N[facility]S BCP OB [address] [facility] [place] [phone] Mark Rosales, DO [address] [place] [address] ArrivedNOMS [facility] OBComment on above:ArrivedStart: 55-74-6966Kgrsovef identified in Urine by CultureUrine [facility]atitart: 68-54-4138WfdwfjfdaToledo Hospitaltart: 59-03-3511Paegk [facility] CenterStart: 06-11-2024 Radiologic examination of kneeXR knee LT 4V*[facility] Start: 52-84-1459LU Knee - left 4 ViewsToledo Hospitaltart: 04-54-3388NQERW-19 Vaccine ( season)COVID-19 Vaccine ( season)Bon [facility]onStart: 51-69-1868Ddgzexs referralChildren'S Hospital For Rehabilitation Ctr Work Phone: Start: 81-99-7784Cctlnjgeg for malignant neoplasm of cervixBon [facility] CantonStart: 80-00-6642Gwoavuwpo vaccinationFlu vaccine (#1)[facility]AStart: 64-42-5113Qzjymaoyv for malignant neoplasm of cervixPap smearBON [facility]: 05-08-6954EThA/Tdap/Td vaccine (1 - Tdap)DTaP/Tdap/Td vaccine (1 - Tdap)[facility] 2012 Hepatitis B vaccine (1 of 3 - 19+ 3-dose series)Hepatitis B vaccine (1 of 3 - 19+ 3-dose series)[facility]: 33-69-8559Okrwgnebv C screening Hepatitis C screenRiverside [facility]: 04-22-1894XQH screeningHIV screenRiverside [facility] Hospital: 45-50-4983Pzzowjyrm vaccine (1 of 2 - 13+ 2-dose series)Varicella vaccine (1 of 2 - 13+ 2-dose series)[facility]: 00-38-9113Yhpkyxmmrg ScreenDepression ScreenRiverside [facility]: 63-36-3483Otqlcnbvv vaccine (1 of 2 - 2-dose childhood series) Varicella vaccine (1 of 2 - 2-dose childhood series)[facility] Start: 08-27-9441KGVCG-19 Vaccine (#1)COVID-19 Vaccine (#1)[facility]ALTHCBC W Auto Differential panel - BloodCBC and differential Lab Routine Pelvic pain in female Encounter for management of menstrual issue Ordered: 05/21/2025[facility] HealthcareComment on above:Ordered: 05/21/2025HLAMYDIA TRACHOMATIS (GENITO/STI)CHLAMYDIA TRACHOMATIS (GENITO/STI) Lab Routine Pain in female genitalia on intercourse Ordered: 03/05/2025[facility] HealthcareComment on above:Ordered: 03/05/2025 End: 03-78-0663Dn abdomen & pelvis w/contrast materialAUGUSTA HEALTH Work Phone: Comment on above:Once for 1 Occurrences starting 05/18/2023 until 05/18/2023 End: 99-98-2699YG Abdomen and Pelvis W contrast IVRussell County Medical Center Comment on above:1 Occurrences starting 03/20/2025 until 03/20/2025ytology Cervical or vaginal smear or scraping studyPap Smear Pathology and Cytology Routine Well woman exam with routine gynecological exam Ordered: 03/05/2025[facility] [email or web address] Work Phone: comzocw on above:Ordered: 03/05/2025DHEA-sulfateDHEA- sulfate Lab Routine Pelvic pain in female Encounter for management of menstrual issue Ordered:05/21/2025[facility] HealthcareComment on above:Ordered: 05/21/2025EKG 12 LeadEKG 12 Lead ECG Routine 05/18/2023 8:05 PM EDTB SLEDVision Endometrial biopsyEndometrial biopsy Procedures Routine Menorrhagia with regular cycle Pelvic pain in female Ordered:07/28/2025[facility] [email or web address] Work Phone: comment on above:Ordered: 07/28/2025Follicle stimulating hormoneFollicle stimulating hormone Lab Routine Pelvic pain in female Encounter for management of menstrual issue Ordered: 05/21/2025[facility] HealthcareComment on above:Ordered: 05/21/2025Glucose [Mass/volume] in Serum or PlasmaPOCT glucose Point of Care Testing STAT As Needed until discontinued starting 03/19/2025 [employer] Work Phone: comment on above:As Needed until discontinued starting 03/19/2025hCG, quantitative, pregnancyhCG, quantitative, Lab Routine Pelvic pain in female Encounter for management of menstrual issue Ordered: 05/21/2025[facility] [email or web address] Work Phone: comment on above:Ordered: 05/21/2025Hemoglobin A1c/Hemoglobin.total in BloodHemoglobin A1c Lab Routine Pelvic pain in female Encounter for management of menstrual issue Ordered: 05/21/2025[facility] Healthcare Comment on above:Ordered: 05/21/2025Human papilloma virus DNA [Presence] in Unspecified specimen by Probe with amplificationHPV DNA probe, amplified Microbiology Routine Well woman exam with routine gynecological exam Ordered: 03/05/2025[facility] HealthcareComment on above:Ordered: 03/05/2025 End: 35-02-7978MPJSTXBJ PACU OXYGEN THERAPY PROTOCOLInitiate PACU Oxygen Therapy Protocol Respiratory Care Routine Continuous until discontinued starting 03/19/2025 [employer] on above:Continuous until discontinued starting 03/19/2025Luteinizing hormoneLuteinizing hormone Lab Routine Pelvic pain in female Encounter for management of menstrual issue Ordered: 05/21/2025 [facility] HealthcareComment on above:Ordered: 05/21/2025Neisseria gonorrhoeae DNA [Presence] in Unspecified specimen by HILDA with probe detectionNeisseria gonorrhea DNA probe, direct Lab Routine Pain in female genitalia on intercourse Ordered: 03/05/2025[facility] HealthcareComment on above:Ordered: 03/05/2025Pathology studySurgical Pathology Lab Routine Blood per rectum Release Upon Ordering for 1 Occurrences starting 03/19/2025on [facility] HealthComment on above:Release Upon Ordering for 1 Occurrences starting 03/19/2025Patient EducationHemorrhoids [facility] Work Phone: Patient referralChildren'S Hospital For Rehabilitation Ctr Work Phone: SURESWAB(R) ADVANCED VAGINITIS PLUS, TMASURESWAB(R) ADVANCED VAGINITIS PLUS, TMA Pathology and Cytology Routine Pain in female genitalia onintercourse Ordered: 03/05/2025[facility] HealthcareComment on above: Ordered: 03/05/2025Thyrotropin [Units/volume] in Serum or PlasmaTSH Lab Routine Pelvic pain in female Encounter for management of menstrual issue Ordered: 05/21/2025[facility] HealthcareComment on above:Ordered: 05/21/2025Thyroxine (T4) free [Mass/volume] in Serum or PlasmaT4, free Lab Routine Pelvic pain in female Encounter for management of menstrual issue Ordered: 05/21/2025[facility] Comment on above:Ordered: 05/21/2025 Immunizations Immunization DateImmunizationNotesCare ProviderFacilityNEGATED: Highlighted row has not occurred!89-21-9057ewdvmbqdf virus vaccine, unspecified formulation ALEXEI SON 445-3898Hxlmwh-XgrhvOhiohealth [facility] Convenient CareNEGATED: Highlighted row has not occurred!03-18-0356WSJH-CoV-2 mRNA (tozinameran 5y-11y) vaccineFRANCNGOC SON 224-8914Bbekbu-DzudpOhiohealth Pickering[facility] Hospital Convenient CareNEGATED: Highlighted row has not occurred!14-20-7504iztkvfexx virus vaccine, live, attenuated, for intranasal useTiffanie Dukes [facility] Payers DatePayer CategoryPayerPolicy [id number]-dye [id number] [facility] .[id number] 2..1.129166.3.57[id number] 2..1.719981.3.579.[id number] 2.1.018559.3.579.2.17242-83-9385Gfvqkby8539857 2..1.383357.3.579.2.41047-78-0693Dpgicqv2955210 2..1.695134.3.579.2.17288-87-5000Stmdrin8073372 2..1.998083.3.579.2.35137-83-9951Tqzkggd1129795 2..1.239584.3.579.2.62677-06-0456Bphlgff4903529 2.16.840.1.243834.3.579.2.74502-37-7822Vclwerw7808015 2.16.840.1.837033.3.579.2.28622-57-1937Ocdhrmo6607306 2.16840.1.033089.3.579.2.57657-63-7639Ovnlreu4952392 2.16840.1.247697.3.579.2.93521-70-6106Kfggtuy8693284 2.840.1.871742.3.579.2.98469-44-6716Udarjmz8384841 2.840.1.084537.3.579.2.50669-74-0335Tmyhcbx1016907 2.840.1.849569.3.579.2.23530-75-3324Qfoqabo0155915 2.840.1.720735.3.579.2.79595-00-8046Kipkmbm9300623 2.840.1.536557.3.579.2.48410-75-0528Vhacnbg0178282 2.840.1.321695.3.579.2.25882-44-1910Ltmicwe1540495 2.840.1.917697.3.579.2.08258-58-2882Iybusoz9497601 2.840.1.093440.3.579.2.89233-89-6774Trrstqx88932424 2.16840.1.149197.3.579.2.51578-85-9326Ylavmeo236851623 2.16840.1.981318.3.579.2.33547-41-0319Ppccccj371407473 2.16.840.1.370304.3.579.2.60668-04-4535Sviauvg66199876 2.16.840.1.906507.3.579.2.57912-06-7218Flaspwf50973011 2.16.840.1.864708.3.579.2.206732-76-7243Pnymgym69354288 2.16.840.1.543365.3.579.2.941165-91-2180Wfncxsp27335783 2.16.840.1.985962.3.579.2.500784-15-1739Tsvjnjt32099975 2.16.840.1.601659.3.579.2.223408-18-8650Aangcsp7353900 2.16.840.1.002318.3.579.2.369036-17-6695Ytbo-mqv74418143327-07-7089Bpeunnn Q0H69307305000-76-0457Ujeeezb3[id number] q47191n3-998b-0909-48z4-z3946j82xb92Arjdfvt46206853 2.16.840.1.292770.3.579.2.363Tyahgqe59361619 2.16.840.1.444939.3.579.2.531 Social History DateTypeDetailFacilityStart: 01-03-2022 End: 14-32-6301Ttlpulg smoking statusEx-smoker (finding)[facility]tart: 77-29-2420Viupdil smoking statusNeverZanesville City Hospital Start: 02-26-2024 End: 61-33-8762Ugj Assigned At BirthFemalBucyrus Community Hospitaltart: 10-08-2014 End: 29-81-4397Aktjfls of tobacco useCurrent [facility] Start: 10-08-2014 End: 72-31-8918Zakapop of tobacco useCigarette SmokerAUGUSTA HEALTH Start: 03-12-2018 End: 11-43-7333Xplphbbqph smoked current (pack per day) - Reported0.3[facility]AStart: 03-12-2018 End: 47-80-8876Xlvopfe use and exposureSmokeless tobacco non-userAUGUSTA HEALTHStart: 05-18-2023 End: 07-02-6371Xgyueni intakeCurrent non-drinker of alcohol (finding)[facility]Start: 03-12-2018 End: 90-61-1229Waoypei Commentquit 2016[facility]Start: 1993 Sex Assigned At BirthNot on fileAUGUSTA HEALTHStart: 12-04-2023 End: 54-12-6402Qnirgmv smoking status NHISNever smoked tobacco (finding) [facility]: 58-36-5809Bxy Assigned At BirthFemale [facility]tart: 02-26-2024 End: 09-28-6953Kwvwwnsnc beverage intakeLifetime non-drinker (finding)[facility] HealthcareStart: 11-18-2012 End: 03-55-5210YdvKqydon (finding)[facility] ShawHas the electric, gas, oil, or water company threatened to shut off services in your home in past 12MoNoBon [facility](I/We) worried whether (my/our) food would run out before (I/we) got money to buy more.Never trueRussell County Medical Center Functional Status JmsbSvvrjpgirhJxexnnWfukvmsb72-45-1445Jizacvrhbf StatusN/[facility]03-13-2024Functional StatusN/[facility] 34-48-2675Owrbqprbki StatusN/[facility]07-30-2022Functional StatusN/[facility] Clinical Notes 05-06-2022 to 07-28-2025 Note Date & TdorNsbdFelghvhu16-91-5522 History of Present illness Narrative* Leta Kapadia - 07/28/2025 9:30 AM EDT Reason for Appointment: Patient ID: Prudencio Jaramillo is a 30 y.o. female who presents for Endometrial Biopsy and Menorrhagia Patient presents today for Pre Op/Endometrial Biopsy appointment. Patient is scheduled to undergo Diagnostic Laparoscopy, possible ED, possible FOE, possible BSO and Endometrial Ablation with Julisa on 08/21/[address] [facility] at [facility]. MEDICATIONS Current Outpatient Medications Medication Instructions [...] nursing note reviewed. Exam conducted with a waste paper hammermill operator present. Vitals: Estimated body mass index is 49.88 kg/m as calculated from the following: Height as [...] reviewed, and patient is to proceed to [facility] OR. EMBX: Patient was placed in dorsal [...] of: Mark Rosales DO documented in this encounterSt. Louis Children's HospitalXrhllbrumh31-28-7321 History of Present illness Narrative* MIO Cabral - 06/17/2025 1:00 PM EDT Reason for Appointment: Patient ID: Prudencio Jaramillo is a 29 y.o. female who presents for Weight Management (Pt present today for first Adipex visit and review U/S due to pelvic pain. ) Patient presents today for a weight management consultation. Patient desires to initiate Adipex. Initial Vitals for Adipex prescription #1: Estimated body mass index is 49.88 kg/m as calculated from the following: Height as of this encounter: 5' 1 . Weight as of this encounter: 264 lb. Allergies as of 06/17/2025 - Reviewed 06/17/2025 Allergen Reaction Noted Amoxicillin Hives and Rash 03/16/2023 Penicillins Hives and Rash 06/30/2014 Past Medical History: Diagnosis Date Anxiety BV (bacterial vaginosis) Depression S/P section STD exposure Syncope Vaginal discharge Past Surgical History: Procedure Laterality Date APPENDECTOMY 2011 SECTION, CLASSIC 07/22/2021 X2 CHOLECYSTECTOMY COLONOSCOPY 2020 DILATION AND CURETTAGE 2018 TUBAL LIGATION Bilateral 2022 Review of Systems: Review of Systems Constitutional: Negative. HENT: Negative. Eyes: Negative. Respiratory: Negative. Cardiovascular: Negative. Gastrointestinal: Negative. Genitourinary: Negative. Musculoskeletal: Negative. Skin: Negative. Neurological: Negative. All other systems reviewed and are negative. Hematological: Negative. Endocrine: Negative. Allergic/Immunologic: Negative. Objective Physical Exam Constitutional: Appearance: Normal appearance. She is normal weight. HENT: Head: Normocephalic. Cardiovascular: Rate and Rhythm: Normal rate. Pulses: Normal pulses. Pulmonary: Effort: Pulmonary effort is normal. Breath sounds: Normal breath sounds. Abdominal: Palpations: Abdomen is soft. Musculoskeletal: General: Normal range of motion. Neurological: General: No focal deficit present. Mental Status: She is alert and oriented to person, place, and time. Psychiatric: Mood and Affect: Mood normal. Behavior: Behavior normal. Thought Content: Thought content normal. Judgment: Judgment normal. Vitals and nursing note reviewed. Assessment/Plan Encounter Diagnoses Name Primary? Weight gain Encounter to discuss test results Encounter for weight management Adipex: Patient presents today for initial Adipex prescription and discuss US results (pelvic pain). I havediscussed in detail the importance of keeping a food journal, proper nutrition/diet, and exercise regimen while taking Adipex. Patient verbalized understanding and signed consents to initiate (Adipex) medication therapy. Patient was given a printed prescription signed by provider to take to their local pharmacy. Follow Up: Patient is to return to the office in 1 month for further evaluation to assess patient progress. Weight and blood pressure will need to be captured in order for patient to receive 2nd prescription. Documented by: Shereen Albrecht MA on behalf of MIO Cabral documented in this encounterSt. Louis Children's HospitalGpgkocmatj22-57-2871 History of Present illness Narrative* Frieda Swan, DERRELL - 05/21/2025 10:20 AM EDT Reason for Appointment: Patient ID: Prudencio Jaramillo is a 29 y.o. female who presents for Hospital Follow-up (Pt present was seen at [facility] on 03/20/2025 for left quad abdominal pain. CT scan was ordered and two small cystic lesions in right adnexa was found measuring 2.5 cm.) Patient presents today for Consult appointment. MEDICATIONS No current outpatient medications ALLERGIES Allergies Allergen Reactions Amoxicillin Hives and [...] Laterality Date APPENDECTOMY 2011 SECTION, CLASSIC 07/22/2021 CHOLECYSTECTOMY COLONOSCOPY 2020 DILATION AND CURETTAGE 2018 TUBAL LIGATION Bilateral 2022 REVIEW OF SYSTEMS Review of Systems: Review of Systems Constitutional: Negative. HENT: Negative. Eyes: Negative. Respiratory: Negative. Cardiovascular: Negative. Gastrointestinal: Negative. Genitourinary: Negative. Musculoskeletal: Negative. Skin: Negative. Neurological: Negative. All other systems reviewed and are negative. Hematological: Negative. Endocrine: Negative. Allergic/Immunologic: Negative. OBJECTIVE Objective: OBGyn Exam Vitals: Estimated body mass index is 49.88 kg/m as calculated from the following: Height as of this encounter: 5' 1 . Weight as of this encounter: 264 lb. BP: 122/74 No LMP recorded. ASSESSMENT & PLAN ICD-10-CM 1. Hospital discharge follow-up Z09 2. Cyst of right ovary N83.201 Patient presents today as she had a colonoscopy and was informed that she had cysts and was instructed to be seen by [facility]. Patient voiced that she does have pelvic pain on/off as well as severe pain with cycles. Discussed conservative verses surgical management for pelvic pain. Patient desires to proceed to the OR for Dx Lap with Endometrial Ablation. Patient is already sterilized with tubal ligation. Patient to setup pre-op appointment and surgical date prior to leaving office. Patient to return to clinic in 4 weeks for Pre-op/Endometrial Biopsy/Adipex #1. At visit Metformin will also be increased to 1,000mg. Documented by Frieda Swan LPN on behalf of: Mark Rosales DO documented in this encounterSt. Louis Children's HospitalFgwzbhoghm88-30-7490 Hospital Discharge instructions* Discharge Instructions* Jazmin Manuel RN - 03/19/2025 11:13 AM EDT Images from the original note were not included. Hemorrhoids: Care Instructions Overview Hemorrhoids are swollen veins that develop in the anal canal. Bleeding during bowel movements, itching, and rectal pain are the most common symptoms. Hemorrhoids can be uncomfortable at times, but rarely are they a serious problem. Most of the time, you can treat them with simple changes to your diet and bowel habits. These changes include eating more fiber and not straining to pass stools. Most hemorrhoids don't need surgery or other treatment unless they are very large and painful or bleed a lot. Follow-up care is a madden part of your treatment and safety. Be sure to make and go to all appointments, and call your doctor if you are having problems. It's also a good idea to know your test resultsand keep a list of the medicines you take. How can you care for yourself at home? Sit in a few inches of warm water (sitz bath) 3 times a day and after bowel movements. The warm water helps with pain and itching. Put ice on your anal area several times a day for 10 minutes at a time. Put a thin cloth between the ice and your skin. Follow this by placing a warm, wet towel on the area for another 10 to 20 minutes. Take pain medicines exactly as directed. If the doctor gave you a prescription medicine for pain, take it as prescribed. If you are not taking a prescription pain medicine, ask your doctor if you can take an cgiq-wmx-vluqtfk medicine. Keep the anal area clean, but be gentle. Use water and a fragrance-free soap, or use baby wipes or medicated pads such as Tucks. Wear cotton underwear and loose clothing to decrease moisture in the anal area. Eat more fiber. Include foods such as whole-grain breads and cereals, raw vegetables, raw and driedfruits, and beans. Drink plenty of fluids. If you have kidney, heart, or liver disease and have to limit fluids, talk with your doctor before you increase the amount of fluids you drink. Use a stool softener that contains bran or psyllium. You can save money by buying bran or psyllium (available in bulk at most health food stores) and sprinkling it on foods or stirring it into fruit juice. Or you can use a product such as Metamucil or Hydrocil. Practice healthy bowel habits. Go to the bathroom as soon as you have the urge. Avoid straining to pass stools. Relax and give yourself time to let things happen naturally. Do not hold your breath while passing stools. Do not read while sitting on the toilet. Get off the toilet as soon as you have finished. Take your medicines exactly as prescribed. Call your doctor if you think you are having a problem with your medicine. When should you call for help? Call 911 anytime you think you may need emergency care. For example, call if: You pass maroon or very bloody stools. Call your doctor now or seek immediate medical care if: You have increased pain. You have increased bleeding. Watch closely for changes in your health, and be sure to contact your doctor if: Your symptoms have not improved after 3 or 4 days. Where can you learn more? Go to https://www.Usarium.net/patientEd and enter F228 to learn more about Hemorrhoids: Care Instructions. Current as of: July 26, 2024 Content Version: 14.5 [employer]. Care instructions adapted under license by [employer]. If you have questions about a medical condition or this instruction, always ask your healthcare professional. Sifteo, [employer], disclaims any warranty or liability for your use of this information. * Attachments The following attachments cannot be sent through Care Everywhere. * Colonoscopy: Post op (Bur[place]ian) documented in this encounterBon [facility] History of Present illness Narrative* Frieda Swan LPN - 03/05/2025 10:00 AM EDT Reason for Appointment: Patient ID: Prudencio Jaramillo is a 29 y.o. female who presents for Well Women Visit Patient presents today for Annual Exam. MEDICATIONS No current outpatient medications ALLERGIES Allergies Allergen Reactions Amoxicillin Hives Penicillins Hives and Rash Other Reaction(s): Unknown PROBLEMS Active Ambulatory Problems Diagnosis Date Noted No Active Ambulatory Problems Resolved Ambulatory Problems Diagnosis Date Noted STD exposure 03/16/2023 Past Medical History: Diagnosis Date Anxiety BV (bacterial vaginosis) Depression ([facility]) S/P section Syncope Vaginal discharge HISTORY PAST MEDICAL HISTORY SOCIAL HISTORY Past Medical History: Diagnosis Date Anxiety BV (bacterial vaginosis) Depression ([facility]) S/P section STD exposure Syncope Vaginal discharge Social History Tobacco Use Smoking status: Never Smokeless tobacco: Never Substance Use Topics Alcohol use: Never Drug use: Never FAMILY HISTORY Family History Problem Relation Name Age of Onset Cancer Mother Cancer Other Grandma Diabetes Other Grandparents SURGICAL HISTORY Past Surgical History: Procedure Laterality Date APPENDECTOMY 2011 SECTION, CLASSIC 07/22/2021 CHOLECYSTECTOMY COLONOSCOPY 2019 DILATION AND CURETTAGE 2018 REVIEW OF SYSTEMS Review of Systems: Review of Systems Constitutional: Negative. HENT: Negative. Eyes: Negative. Respiratory: Negative. Cardiovascular: Negative. Gastrointestinal: Negative. Genitourinary: Negative. Musculoskeletal: Positive for back pain. Skin: Negative. Neurological: Negative. All other systems reviewed and are negative. Hematological: Negative. Endocrine: Negative. Allergic/Immunologic: Negative. OBJECTIVE Objective: Physical Exam Constitutional: Appearance: Normal appearance. She is well-developed. Genitourinary: Vulva normal. Breasts: Breasts are soft. Right: Normal. Left: Normal. Cardiovascular: Rate and Rhythm: Normal rate and [...] nursing note reviewed. Exam conducted with a waste paper hammermill operator present. Vitals: Estimated body mass index is 50.98 kg/m as calculated from the following: Height as of 02/26/24: 5' 1 . Weight as of this encounter: 269 lb 12.8 oz. BP: 118/74 No LMP recorded. ASSESSMENT & PLAN ICD-10-CM 1. Well woman exam with routine gynecological exam Z01.419 Pap Smear HPV DNA probe, amplified Annual Exam: Patient presents today for an annual exam. Patient states she is doing well and has complaints of painful intercourse. Pap and vaginal cultures were obtained without difficulty. Patient advised that Doxycyline would be sent to pharmacy for 2 week course to help with pelvic pain, patient had a positive bladder swipe and aware that antibiotic will help with symptoms as well. Patient advised to wearsunscreen while taking medication. Orders Placed This Encounter Procedures HPV DNA probe, amplified 5-point breast exam performed. Patient seated in upright position with arms resting at sides, nipples are noted at that level of umbilicus and no movement with arms raised. Patient complaints of upper back pain and discussed with patient possible future referral for possible breast reduction. Follow Up: Patient is to return in one year for annual unless needed otherwise. Documented by Frieda Swan LPN on behalf of: Mark Rosales DO documented in this encounterSt. Louis Children's [id number] Evaluation + Plan note Extracted from:Title:ED NoteAuthor:Drake Bynum, Debra HDate:11/23/24 1. Vomiting and diarrhea (R1 1.10: Vomiting, unspecified) 2. Near syncope (R55: Syncope and collapse) Diarrhea, unspecified (R19.7: Diarrhea, unspecified) Orders: ondansetron, 4 mg = 2 mL, Injection, IV Push, Once, Stop date 11/23/24 3:20:00 EST, STAT, Start date 11/23/24 3:20:00 EST, 11/23/24 3:20:00 EST ondansetron, 4 mg = 1 tab(s), Oral, q6hr, PRN Nausea/Vomiting, # 12 tab(s), Refills(s) 0, Pharmacy:[facility] #[id number], 155, cm, 11/23/24 3:07:00 EST, Height/Length [...] Lipase Level Magnesium Level Rapid COVID Antigen ([facility]) Troponin 0 Hr. UA with Cult Rflx Urine Culture Diagnostic Tests Pending * Urine Culture 11/23/24 [facility] [id number] Hospital Discharge instructions Patient Education 11/23/2024 05:18:31 [...] oral rehydration solution (ORS). This is an ekcs-esr-lngloey medicine that helps return your body to [...] regular sports drinks. ?Avoid alcohol. Eat bland, cxwf-oe-syebzd foods in small amounts as you are able. These foods include bananas, applesauce, rice, lean meats, toast, and crackers. Avoid spicy or fatty foods. Medicines Take ggpg-etl-hhxrmot and prescription medicines only as told by your health care provider. If you were prescribed antibiotics, take them as told by your health care provider. Do not stop using the antibiotic even if you start to feel better. General instructions Wash your hands often using soap and water for at least 20 seconds. If soap and water are not available, use hand director airport operations. Others in the household should wash their [...] provider. Document Revised: 03/13/2023 Document Reviewed: 03/13/2023 [employer] Patient Education 2023 [employer]. 11/23/2024 05:18:31 Nausea and Vomiting, Adult Nausea [...] water added (diluted fruit juice). Eat bland, yhcx-yg-srrgsd foods in small amounts as you are able. These foods include bananas, applesauce, rice, lean meats, toast, and crackers. Avoid fluids that contain a lot of sugar or caffeine, such as energy drinks, sports drinks, and soda. Avoid alcohol. Avoid spicy or fatty foods. General instructions Take qpgk-nuw-xiadvpz and prescription medicines only as told by your health care provider. Drink enough fluid to keep your urine pale yellow. Wash your hands often using soap and water for at least 20 seconds. If soap and water are not available, use hand director airport operations. Make sure that everyone in your household [...] eating and drinking to prevent dehydration. Take ewko-klv-erepker and prescription medicines only as told by [...] provider. Document Revised: 03/31/2022 Document Reviewed: 03/31/2022 [employer] Patient Education 2023 [employer]. 11/23/2024 05:18:31 Near-Syncope Near-Syncope Near-syncope is when [...] Follow these instructions at home: Medicines Take qyug-dju-ssbjzbk and prescription medicines only as told by [...] provider. Document Revised: 02/02/2022 Document Reviewed: 02/02/2022 [employer] Patient Education 2023 [employer]. Follow Up Care 11/23/2024 02:58:09 With:ELIZABETH CRUZ Address: [place] [address]- Business (1) When:11/26/2024 Comments:Return to the emergency room if your vomiting recurs or any new symptoms. [facility] 02-16-2025 NoteED Patient Education Note Gastroenterology [...] added (diluted fruit juice). ??? Eat bland, cdto-yt-lyjedx foods in small amounts as you are able. These foods include bananas, applesauce, rice, lean meats, toast, and crackers. ??? Avoid fluids that contain a lot of sugar or caffeine, such as energy drinks, sports drinks, andsoda. ??? Avoid alcohol. ??? Avoid spicy or fatty foods. General instructions ??? Take lxot-zuh-wdvccji and prescription medicines only as told by your health care provider. ??? Drink enough fluid to keep your urine pale yellow. ??? Wash your hands often using soap and water for at least 20 seconds. If soap and water are not available, use hand director airport operations. ??? Make sure that everyone in your [...] and drinking to prevent dehydration. ??? Take acll-rkb-xqumnzk and prescription medicines only as told by [...] provider. Document Revised: 03/31/2022 Document Reviewed: 03/31/2022 [employer] Patient Education ? 2023 [employer] Infectious Disease Diarrhea, Adult Diarrhea is frequent [...] home: Eating and drinking (more content not included)...[facility]03-13-2024 Hospital Discharge instructions Patient Education 12/19/2023 13:21:22 [...] numbers. This can be done either in [place]ian ([place] or metric measurements. Note that charts and online BMI calculators are available to help you find your BMI quickly and easily without having to do these calculations yourself. To calculate your BMI in [place] ([place] measurements: 1.Measure your weight in pounds [...] Centers for Disease Control and Prevention: www.cdc.gov [place] Heart Association: www.heart.org National Heart, Lung, and Blood [place]: www.nhlbi.nih.gov Summary Body mass index (BMI) is a number that is calculated from a person's weight and height. BMI may help estimate how much of a person's weight is composed of fat. BMI can help identify thosewho may be at higher risk for certain medical problems. BMI can be measured using Bur[place]ian measurements or metric measurements. BMI charts are used to identify whether you are underweight, normal weight, overweight, or obese. This information is not intended to replace advice given to you by your health care provider. Make sure you discuss any questions you have with your health care provider. Document Revised: 06/16/2020 Document Reviewed: 04/23/2020 [employer] Patient Education 2022 [employer]. 12/19/2023 13:21:18 Otitis Media, Adult, Nmxx-nx-Lvac Otitis Media, Adult Otitis media is a [...] pain. Follow these instructions at home: Take sptj-xge-uozryam and prescription medicines only as told by [...] provider. Document Revised: 01/02/2022 Document Reviewed: 01/02/2022 [employer] Patient Education 2022 [employer] 12/19/2023 13:21:15 Pharyngitis, Hosg-at-Ozgi Pharyngitis Pharyngitis is a sore throat (pharynx). [...] Follow these instructions at home: Medicines Take jpax-uhh-hnfzznq and prescription medicines only as told by [...] and water are not available, use hand director airport operations. Do not touch your eyes, nose, or [...] provider. Document Revised: 12/21/2021 Document Reviewed: 12/21/2021 [employer] Patient Education 2022 [employer]. Follow Up Care 12/19/2023 11:23:19 With:ELIZABETH CRUZ CNP Address: [place] [address]- When: Unknown [facility] 03-13-2024 Evaluation + Plan note Diagnostic Tests Pending * Group A Strep by PCR 12/19/23 [facility]08-17-2023 History of Present illness Narrative* Antoinette Heard RN - 05/24/2023 10:17 AM EDT PAT call placed to patient, reviewing meds, history, allergies PAT instruction sheet. [facility] Discharge instructions Patient Education 04/14/2023 14:12:18 [...] are safe for you. General instructions Take xgce-ghf-mjqobqz and prescription medicines only as told by [...] provider. Document Revised: 01/31/2021 Document Reviewed: 01/31/2021 [employer] Patient Education 2022 [employer] 04/14/2023 14:12:18 RICE Therapy for Routine Care [...] limityour activities and whether you should start wnpyg-ic-zsvjue exercises for your injury. Ice Ice your [...] provider. Document Revised: 11/29/2020 Document Reviewed: 06/14/2018 [employer] Patient Education 2020 [employer]. Follow Up Care 04/14/2023 13:31:33 [facility] Address: [address] [place] [address] [place] [address] Business (1) When:04/17/2023 14:10:40 With:Carol Gutierrez Address: [address] [place] [address], [address] [place] [address] Business (1) When:Within 3 Day(s) [facility]07-08-2023 Evaluation + Plan noteExtracted from: Title:ED NoteAuthor:Palma VICTORIA, JansenDate:04/14/23 Wrist sprain (S63.509A: Unsp ecified sprain of unspecified wrist, initial encounter) Orders: XR Wrist 3+ Views Left [facility]02-02-2023 NoteOP Note OPERATION DATE: 11/09/2022 PROCEDURE: Bilateral laparoscopic salpingectomy. PREOPERATIVE DIAGNOSIS: Multiparity, request for sterilization. POSTOPERATIVE DIAGNOSIS: Multiparity, request for sterilization. ANESTHESIA: General. SURGEON: Mark Rosales D.O. [employer]PERINTENDENT [employer]CE [employer]: JAMES Sheets URINE OUTPUT: Yellow and clear. [...] lap and needle counts were correct x2.[facility] 11-09-2022 NoteOPERATIVE NOTE OPERATION DATE: 12/02/2022 PROCEDURE: Bilateral laparoscopic salpingectomy. PREOPERATIVE DIAGNOSIS: Multiparity, request for sterilization. POSTOPERATIVE DIAGNOSIS: Multiparity, request for sterilization. ANESTHESIA: General. SURGEON: Mark Rosales D.O. SUPERINTENDENT MA[employer]TE[employer]CE [employer]: JAMES Sheets URINE OUTPUT: Yellow and clear. [...] lap and needle counts were correct x2.[facility] 09-18-2022 NoteDISCHARGE SUMMARY DISCHARGE DATE: 10/02/2022 [...] pain free and no longer on narcotics.[facility] [id number] NoteDISCHARGE DATE: 09/20/2022 PRIMARY DIAGNOSES: 1. Intrauterine [...] pain free and no longer on narcotics.[facility] [id number] NoteOPERATIVE NOTE OPERATION DATE: 09/18/2022 PROCEDURE: Repeat low transverse section. PREOPERATIVE DIAGNOSIS: 1. Intrauterine at 39 weeks. 2. Morbid obesity. 3. Previous . POSTOPERATIVE DIAGNOSIS: 1. Intrauterine at 39 weeks. 2. Morbid obesity. 3. Previous . ANESTHESIA: Spinal with Duramorph. SURGEON: Mark Rosales D.O. SUPERINTENDENT MAINTENA[employer]CE [employer]POR[employer]: JAMES URINE OUTPUT: Yellow and clear. BLOOD [...] to the Recovery Room in stable condition.[facility] [id number] Evaluation + Plan noteExtracted from:Title:ED NoteAuthor:Tiffanie Dukes DO ADate:05/06/22 Acute UTI (urinary tract inf ection) (N39.0: Urinary tract infection, site not specified) Epigastric pain (R10.13: Epigastric pain) Nausea and vomiting (R11.2: Nausea with vomiting, unspecified) Orders: Al hydroxide/Mg hydroxide/simethicone, 30 mL, Susp-Oral, Oral, Once, Stop date 05/06/22 1:01:00 EDT, STAT, Start 05/06/22 1:01:00 EDT atropine/hyoscyamine/PB/scopolamine, 10 mL, Elixir, Oral, Once, Stop date 05/06/22 1:01:00 EDT, STAT, Start 05/06/22 1:01:00 EDT cephalexin, 500 mg = 1 cap(s), Cap, Oral, Once, Stop date 05/06/22 2:21:00 EDT, STAT, Start 05/06/22 2:21:00 EDT, 05/06/22 2:21:00 EDT cephalexin, 500 mg = 1 cap(s), Oral, TID, X 5 day(s), # 15 cap(s), Refills(s) 0 famotidine, 20 mg = 1 tab(s), Oral, Daily, # 14 tab(s), Refills(s) 0 famotidine, 20 mg = 2 mL, Soln-IV, IV Push, Once, Stop date 05/06/22 1:01:00 EDT, STAT, Start 05/06/22 1:01:00 EDT, 05/06/22 1:01:00 EDT lidocaine topical, 200 mg, 10 mL, Soln-Oral, Oral, Once, Stop date 05/06/22 1:01:00 EDT, STAT, Start 05/06/22 1:01:00 EDT metoclopramide, 10 mg = 2 mL, Injection, IV Push, Once, Stop date 05/06/22 1:01:00 EDT, STAT, Startdate 05/06/22 1:01:00 EDT, 05/06/22 1:01:00 EDT ondansetron, [...] Future Scheduled Tests Laboratory* Rapid COVID Antigen ([facility]) 01/03/22 [facility]07-30-2022 Hospital Discharge instructions Patient Education 05/06/2022 02:32:57 Urinary Tract Infection, Adult, Qdlf-rx-Sirz Urinary Tract Infection, Adult A urinary tract [...] Follow these instructions at home: Medicines Take igbq-fuw-zaqlzua and prescription medicines only as told by [...] 03/12/2009 Document Revised: 09/11/2019 Document Reviewed: 04/03/2019 [employer] Patient Education 2020 [employer]. 05/06/2022 02:32:57 Abdominal Pain During , Vxkl-lr-Mylx Abdominal Pain During Belly (abdominal) pain is [...] keep your pee (urine) pale yellow. Take xztx-yai-fmomhbp and prescription medicines only as told by [...] 09/12/2010 Document Revised: 01/12/2020 Document Reviewed: 12/27/2017 [employer] Patient Education 2020 [employer]. Follow Up Care 05/06/2022 00:57:48 With:Shanique Roman Address: [address] [place] [id number] When:05/09/2022 Comments:Take the antibiotics as prescribed you have completed the course. You can use the nausea medicationevery 6 hours as needed for nausea and vomiting. Take the Pepcid daily for the next 10 days. Pleasefollow-up with your CARBONIZER and primary care doctor in the next 2 to 3 days for reevaluation. Pleasereturn the ED for any new or worsening symptoms. [facility]* Diagnosis Calculus of gallbladder without cholecystitis without obstruction- Primary Calculus of gallbladder without mention of cholecystitis or obstruction documented in this encounter [facility]* Diagnosis Onset Date Resolution Status BMI 50.0-59.9, adult acuteGAD (generalized anxiety disorder)acuteMDD (major depressive disorder)acute Obesity, morbid, BMI 50 or higheracute [facility] Work Phone: evaluation note* Diagnosis Onset Date Resolution Status BMI 50.0-59.9, adult acuteGAD (generalized anxiety disorder)acuteMDD (major depressive disorder)acute Obesity, morbid, BMI 50 or higheracuteBMI 50.0-59.9, adultacuteGAD (generalized anxiety disorder)acuteMDD (major depressive disorder)acuteObesity, morbid, BMI 50 or higheracute [facility] Work Phone: evaluation note* Diagnosis Onset Date Resolution Status Knee pain, left noneactive [facility] Work Phone: evaluation note* Diagnosis Onset Date Resolution Status Left knee sprain noneactiveKnee pain, leftnoneactive [facility] Work Phone: Evaluation noteNo assessment information available [facility] Work Phone: evaluhujak note* Diagnosis Blood per rectum- Primary Hemorrhage of rectum and anus [facility] Blood per rectum Hemorrhage of rectum and anus Left lower quadrant abdominal pain [facility]* Diagnosis Well woman exam with routine gynecological exam Routine gynecological examination Pain in female genitalia on intercourse Dyspareunia Upper back pain Unspecified backache [facility]* Diagnosis Hospital discharge follow-up Other follow-up examination Cyst of right ovary Other and unspecified ovarian cyst Pelvic pain in female Unspecified symptom associated with female genital organs Encounter for management of menstrual issue Encounter for weight management [facility]* Diagnosis Weight gain Other symptoms concerning nutrition, metabolism, and development Encounter to discuss test results Other specified counseling Encounter for weight management documented in [facility]* Diagnosis Pre-op examination Menorrhagia with regular cycle Abnormal uterine bleeding Unspecified disorder of menstruation and other abnormal bleeding from female genital tract Pelvic pain in female Unspecified symptom associated with female genital organs Cyst of right ovary Other and unspecified ovarian cyst documented [facility] this encounter [facility] Narrative No data available for this section [facility] Discharge instructions* Attachments The following attachments cannot be sent through Care Everywhere. * Gallstones (Burundian) [facility] No data available for this section [facility] note No data available for this section [facility] HospitalRes[facility] (narrative)No reason for referral information availableChildren[facility] Work Phone: Reason for visit Narrative* Auth/CertSpecialty Diagnoses / ProceduresReferred By ContactReferred To Contact Diagnoses Blood per rectum Procedures NC COLONOSCOPY FLX DX W/COLLJ SPEC WHEN PFRMD NC COLONOSCOPY W/BIOPSY SINGLE/MULTIPLE NC COLSC FLX W/RMVL OF TUMOR POLYP LESION SNARE TQ COLONOSCOPY DIAGNOSTIC Janine Funez MD [address] [place] [place] [address] Phone: tel: fax: [facility] [address] [place] [address] Referral IDStatusReasonStart DateExpiration DateVisits RequestedVisits [id number] [facility] for visit Narrative* Imaging (Routine) - Closed SpecialtyDiagnoses / ProceduresReferred By ContactReferred To ContactRadiology Diagnoses Blood per rectum Left lower quadrant abdominal pain Procedures CT ABDOMEN PELVIS W IV CONTRAST Additional Contrast? None Janine Funez MD [address] [place] [address] Phone: tel: fax: Referral Rhina DateExpiration DateVisits RequestedVisits [id number]/3/20256/ [facility] Summary Purpose Family History No Family History Records Found Relationship Condition Age at Onset Recorded Date/T arturo Not Specified Diabetes mellitus Unknown High blood cholesterolUnknownHeart diseaseUnknownMyocardial infarctionUnknown Malignant neoplasmUnknownCerebrovascular accident (CVA)UnknownNot SpecifiedPolyp of corpus uteriUnknown Relationship Condition Age at Onset Recorded Date/T arturo Not Specified Diabetes mellitus Unknown High blood cholesterolUnknownHeart diseaseUnknownMyocardial infarctionUnknown Malignant neoplasmUnknownCerebrovascular accident (CVA)UnknownmotherPolyp of corpus uteriUnknown Advance Directives No Advanced Directives Records Found Date ActivatedDate InactivatedComments03/19/2025 9:51 AM03/19/2025 1:38 PMDate ActivatedDate InactivatedComments05/28/2023 6:49 AM05/28/2023 3:38 PMDate ActivatedDate InactivatedComments03/20/2018 8:15 AM03/20/2018 11:52 AMCode Status Date ActivatedDate InactivatedCommentsFull Code03/20/2018 8:15 AM03/20/2018 11:52 AMCode StatusDate ActivatedDate InactivatedCommentsFull Code05/28/2023 6:49 AM 05/28/2023 3:38 PMCode StatusDate ActivatedDate InactivatedCommentsFull Code 03/20/2018 8:15 AM03/20/2018 11:52 AM Advance Directive Response Recorded Date/ Time Advance Directives No August 4:32pm Date ActivatedDate InactivatedComments03/19/2025 9:51 AM Chief Complaint and Reason for Visit Chief Complaint est care E66.01 Z68.43 F32.9 F41.1 Z13.220Reason for VisitBMI 50.0-59.9, adult QASIM (generalized anxiety disorder) MDD (major depressive disorder) Obesity, morbid, BMI 50 or higher Chief Complaint est care E66.01 Z68.43 F32.9 F41.1 Z13.220 4 week follow upReason for VisitBMI 50.0-59.9, adult QASIM (generalized anxiety disorder) MDD (major depressive disorder) Obesity, morbid, BMI 50 or higher BMI 50.0-59.9, adult QASIM (generalized anxiety disorder) MDD (major depressive disorder) Obesity, morbid, BMI 50 or higher Chief Complaint left knee injury M25.562Reason for VisitKnee pain, left Chief Complaint left knee injury M25.562Reason for VisitLeft knee sprain Knee pain, left Chief Complaint Admit Date abd pain, diarrhea, blood in stool, conf usion February 28, 2025 8:58am Chief Complaint Admit Date Unknown July 28, 2025 9 :00am Additional Source Comments INFORMATION SOURCE (unrecogn ized section and content) DATE CREATED AUTHOR 04/28/2019 [facility] DATE CREATED AUTHOR AUTHOR'S ORGANIZ ATION 12/14/2022 [facility] DATE CREATED AUTHOR AUTHOR'S ORGANIZ ATION 11/24/2024 [facility] DATE CREATED AUTHOR AUTHOR'S ORGANIZ ATION 11/26/2024 [facility] DATE CREATED AUTHOR AUTHOR'S ORGANIZ ATION 03/11/2025 [facility] DATE CREATED AUTHOR AUTHOR'S ORGANIZ ATION 03/27/2025 [facility] DATE CREATED AUTHOR AUTHOR'S ORGANIZ ATION 05/25/2025 [facility] DATE CREATED AUTHOR AUTHOR'S ORGANIZ ATION 07/29/2025 [facility] DATE CREATED AUTHOR AUTHOR'S ORGANIZ ATION 07/31/2025 [facility] Care Team (unrecognized sect ion and content) Team MemberRelationshipSpecialtyStart DateEnd Date Mirza Mcmullen APRN - CNP PCP - GeneralFamily Medicine11/28/17Team MemberRelationshipSpecialtyStart DateEnd Date Mirza Mcmullen APRN - CNP PCP - GeneralFamily Medicine11/28/17 Team Status: Active Member Role Status Dates Elizabeth Cruz DNP Primary Care Provider Active Team Status: Inactive Member Role Status Dates Elizabeth Cruz DNP Attending Provider Active S tart: December 04, 2023 End: December 04, 2023Braden Watsonima Care ProviderActiveStart: December 04, 2023 End: December 04, 2023 [...] Active Start: June 11, 2024 End: June 11Hal Monroe ProviderActiveStart: June 11, 2024 End: June 11, 2024 Team Status: Active Member Role Status Dates Elizabeth Cruz DNP Primary Care Provider Active Start: June 11, 2024 Hal Castellon ProviderActiveStart: June 11, 2024 Team Status: Active Member Role Status Dates Bailee Myers DO Primary Care Provider Active Team Status: Inactive Member Role Status Dates Bailee Myers DO Primary Care Provider Active Start: February 28, 2025 End: February 28, 2025Nathen Spain ProviderActiveStart: February 28, 2025 End: February 28, 2025Team MemberRelationshipSpecialtyStart DateEnd Date Mirza Mcmullen APRN - ASHWIN [facility]11/28/17Team MemberRelationshipSpecialtyStart DateEnd Date Bailee Myers DO [address] [place] [address] PCP - GeneralFamily Medicine03/20/25 Team Status: Inactive Member Role/Relationship Status Dates Mark Rosales DO Attending Provider Active Start : July 28, 2025 End: July 28, 2025 Reason for Visit (unrecogniz ed section and content) ReasonCommentsChest PainUnder left breast that radiates to the right breastLoss of ConsciousnessPer EMS about 10 secondsReasonDoctors Hospital Women VisitReason CommentsHospital Follow-upPt present was seen at [facility] on 03/20/2025 for left quad abdominal pain. CT scan was ordered and two small cystic lesions in right adnexa was found measuring 2.5 cm.ReasonCommentsWeight ManagementPt present today for first Adipex visit and review U/S due to pelvic pain.Reason CommentsEndometrial BiopsyMenorrhagia Ordered Prescriptions (unrec ognized section and content) PrescriptionSigDispensedRefillsStart DateEnd Date ondansetron (ZOFRAN-ODT) 4 MG disintegrating tablet Take 1 tablet by mouth 3 times daily as needed for Nausea or Vomiting 21 tablet etodolac (LODINE) 400 MG tablet Take 1 tablet by mouth 2 times daily 14 tablet dicyclomine (BENTYL) 20 MG tablet Take 1 tablet by mouth 4 times daily as needed (abdominal pain) 20 tablet Scheduled Active and Recently Administ ered Medications (unrecognized section and content) Medication Order/ aluminum & magnesium hydroxide-simethicone (MAALOX) 30 mL, lidocaine viscous hcl (XYLOCAINE) 5 mL (GI COCKTAIL) (COMPLETED) Oral, ONCE, On Sun05/18/23 at 1956, For 1 dose, Take 5 mL from lidocaine viscous 2% cup and mix with 30 mL of maalox and then administer. * 2017 (Given - Provider: Christal Cortez RN) famotidine (PEPCID) 20 mg in sodium chloride (PF) 0.9 % 10 mL injection (COMPLETED) 20 mg, IntraVENous, ONCE, 1 dose, On Sun05/18/23 at 1957, IV Push over minimum of 2 minutes - Dilute with 10 mL NS * 2013 (Given - Provider: Christal Cortez, MOISE) ketorolac (TORADOL) injection 30 mg (COMPLETED) 30 mg, IntraVENous, ONCE, 1 dose, On Sun05/18/23 at 1957 * 2016 (Given - Provider: Christal Cortez, MOISE) morphine sulfate (PF) injection 4 mg (COMPLETED) 4 mg, IntraVENous, ONCE, 1 dose, On Sun05/18/23 at 2230, If oral and IV narcotics ordered, use oralfirst and only use IV if oral is ineffective or cannot take oral. Do Not give oral and IV within 1 hour of each other unless specifically ordered. * 2231 (Given - Provider: Christal Cortez, RN) ondansetron (ZOFRAN) injection 4 mg (COMPLETED) 4 mg, IntraVENous, ONCE, 1 dose, On Sun05/18/23 at 1957 * 2015 (Given - Provider: Christal Cortez, RN) sodium chloride 0.9 % bolus 1,000 mL (COMPLETED) 1,000 mL, IntraVENous, at 495.9 mL/hr, Administer over 121 Minutes, ONCE, On Sun05/18/23 at 195, For 1 dose * 2012 (New Bag - Provider: Christal Cortez, RN) * 2156 (Stopped - Provider: Christal Cortez, RN) Medication Order///08/2023 iopamidol (ISOVUE-300) 61 % injection 70 mL (COMPLETED) 70 mL, IntraVENous, IMG ONCE PRN, 1 dose, Starting on Sun05/18/23 at 2121, Until Sun05/18/23 at 2126, Other * 2126 (Given - Provider: Mnajula Joiner) Medication Order//09/2025 sodium chloride flush 0.9 % injection 5-40 mL 5-40 mL, IntraVENous, EVERY 12 HOURS SCHEDULED (2 times per day), First dose on Casandra 03/19/25 at 1015, Until Discontinued, For Line Patency: Peripheral IV = 5 mL; Midline or Central Line = 10 mL/lumen.If following IV push medication, administer flush at same rate as the IV push. Flush volume is determined by type of infusion therapy being given. For non-viscous solutions use: Peripheral IV = 5 mL Midline or Central Line = 10 mL/lumen For viscous solutions (i.e. blood components, parenteral nutrition, contrast media, or after obtaining blood sample) use: Peripheral IV = 10 mL Midline or CentralLine = 20 mL/lumen, Pre-procedure(GI) * 1015 (Due) * 2100 (Due) sodium chloride flush 0.9 % injection 5-40 mL 5-40 mL, IntraVENous, EVERY 12 HOURS SCHEDULED (2 times per day), First dose on Casandra 03/19/25 at 1130, Until Discontinued, For Line Patency: Peripheral IV = 5 mL; Midline or Central Line = 10 mL/lumen.If following IV push medication, administer flush at same rate as the IV push. Flush volume is determined by type of infusion therapy being given. For non-viscous solutions use: Peripheral IV = 5 mL Midline or Central Line = 10 mL/lumen For viscous solutions (i.e. blood components, parenteral nutrition, contrast media, or after obtaining blood sample) use: Peripheral IV = 10 mL Midline or CentralLine = 20 mL/lumen, PACU only * 1130 (Due) * 2100 (Due) Medication Order// 0.9 % sodium chloride infusion IntraVENous, at 75 mL/hr, CONTINUOUS, Starting on Casandra 03/19/25 at 1015, Pre-procedure(GI) * 1032 (New Bag - Provider: Abigail Laureano RN) * 1033 (Paused - Provider: DAHLIA Forde CRNA - Comment: Switch to gravity) * 1034 (Restarted - Provider: DAHLIA Forde CRNA) * 1058 (Stopped - Provider: DAHLIA Forde CRNA) Medication Order// 0.9 % sodium chloride infusion IntraVENous, at 100 mL/hr, PRN, If patient receiving piggyback infusions without ordered maintenance IV fluids or with frequent/long duration piggyback infusions, Starting on Casandra 03/19/25 at 0951, Administer at the same rate as the piggyback being infused., Pre-procedure(GI) 0.9 % sodium chloride infusion IntraVENous, at 5-250 mL/hr, PRN, if patient receiving piggyback infusions and maintenance fluids are not ordered, Starting on Casandra 03/19/25 at 1113, For piggyback infusion, administer at same rate as piggyback for a total of 25 mL. Enter 25 mL into dose field and piggyback rate into rate field of order. If piggyback is infusing at a rate less than 100 mL/hr, enter 25 mL into dose field and 100 mL/hr into rate field of order., PACU only naloxone 0.4 mg in 10 mL sodium chloride syringe IntraVENous, PRN, Opioid Reversal, Starting on Casandra 03/19/25 at 1113, PRN if respiratory rate is lessthan 6/min and patient is difficult to arouse then notify physician STAT. Mix 9 mL of sodium chloride 0.9% with 0.4 mg (1 mL) of naloxone (NARCAN) in 10 mL syringe. (Note: dilution is 0.04 mg/mL) Give 0.08 mg (2 mL of special dilution), slow IV push, repeat up to 0.4 mg (10 mL) or until patient is responsive to physical stimulation and respiratory rate is equal to or greater than 6 breaths/min. Continue to observe, if no response within 3 minutes of administration of 0.4 mg (10 mL) total, repeat dose (0.4 mg as administered previously). Concentration 0.04 mg/mL, PACU only sodium chloride flush 0.9 % injection 5-40 mL 5-40 mL, IntraVENous, PRN, Starting on Csaandra 03/19/25 at 0951, Until Discontinued, Line Care, After every IV line use, For Line Patency: Peripheral IV = 5 mL; Midline or Central Line = 10 mL/lumen. If following IV push medication, administer flush at same rate as the IV push. Flush volume is determined by type of infusion therapy being given. For non-viscous solutions use: Peripheral IV = 5 mL Midline or Central Line = 10 mL/lumen For viscous solutions (i.e. blood components, parenteral nutrition,contrast media, or after obtaining blood sample) use: Peripheral IV = 10 mL Midline or Central Line= 20 mL/lumen, Pre-procedure(GI) sodium chloride flush 0.9 % injection 5-40 mL 5-40 mL, IntraVENous, PRN, Starting on Casandra 03/19/25 at 1113, Until Discontinued, Line Care, After every IV line use, For Line Patency: Peripheral IV = 5 mL; Midline or Central Line = 10 mL/lumen. If following IV push medication, administer flush at same rate as the IV push. Flush volume is determined by type of infusion therapy being given. For non-viscous solutions use: Peripheral IV = 5 mL Midline or Central Line = 10 mL/lumen For viscous solutions (i.e. blood components, parenteral nutrition,contrast media, or after obtaining blood sample) use: Peripheral IV = 10 mL Midline or Central Line= 20 mL/lumen, PACU only sterile water for irrigation (CANCELED) PRN, Starting on Casandra 03/19/25 at 1041, Intra-op * 1041 (Given - Provider: Janine Funez MD - Comment: Diluted with GI ease; given by dr funez; dose approx.) Goals (unrecognized section and content) Goals may [...] BE BASED ON THE PRIMARY CLINICAL RECORDS. [employer] provides no warranty or guarantee of the accuracy or completeness of information in this document.
== END 2025-08-11 12:30 | disposition home or self-care (01) ==
LOC: PST 12:30
PROVIDERS: PCP Family Medicine; Visit Provider Obstetrics & Gynecology
DX: Z01.818 Encounter for other preprocedural examination (principal); N83.201 Unspecified ovarian cyst, right side; N92.0 Excessive and frequent menstruation with regular cycle; N93.9 Abnormal uterine and vaginal bleeding, unspecified; R10.2 Pelvic and perineal pain

== ENCOUNTER 2025-08-21 10:17 | Day surgery (SDC) | payer BC, SELFPAY ==
[2025-08-11 12:54] VITALS: BP 123/85; PULSE 89; TEMP 36.3; O2SAT 99; BMI 49.6
[2025-08-21] VITALS (10 sets, daily range): BP systolic 93–148; BP diastolic 58–94; PULSE 81–99; TEMP 36.6–36.7; O2SAT 91–99; BMI 49.8
--- OUTSIDE RECORDS SUMMARY | 2025-08-21 10:20 | XMS_ITS | Clinical Summary ---
Author Organization [facility] Address [address] [place] [address] Care Team Providers Care Warehouse Driver Name Role Phone Unavailable Primary Care Provider Unavailabl e Allergies Active AllergyReactionsCriticalityNoted DateCommentsAmoxicillinHives,RashLow 3PenicillinsHives,QawlYpo0706/30/2014 Other Reaction(s): Unknown Medications MedicationSigDispense QuantityRefillsLast FilledStart [...] 5Active Resolved Problems ProblemNoted DateDiagnosed DateResolved DateSTD tylrbnxi21/06/2023 Encounters DateTypeDepartmentCare ScnpMrhvpyhrnny49/24/2025bstract [facility] R[facility] [address] [place] [address] [place] [address] Catie Lala MA 07/28/2025 9:30 AM EDTProcedure Visit [facility] RIVERA [address] [place], [place] [address] [address] Mark Rosales DO Pre-op examination; Menorrhagia with regular cycle; Abnormal uterine bleeding; Pelvic pain in female; Cyst of right ovary06/17/2025 1:00 PM EDTOffice Visit [facility] [address] [place] [address] Megha Shaw PA Weight gain; Encounter to discuss test results; Encounter for weight /10/2025amboo flowsheet [facility] [address] [place] [address] Megha Shaw PA 06/09/2025 1:00 PM EDTAncillary Procedure [facility] [address] [place] [address] Pelvic pain in female; Encounter for management of menstrual issue05/21/2025 10:20 AM EDTOffice Visit [facility] [address] [place] [address] Mark Rosales DO Hospital discharge follow-up; Cyst of right ovary; Pelvic pain in female; Encounter for management of menstrual issue; Encounter for weight iuonlcngod89/14/2025amboo flowsheet [facility] [address] [place] [address] Mark Rosales DO from Last 3 Months Family History Medical HistoryRelationNameCommentsCancerMotherCancerOtherGrandmaDiabetesOther GrandparentsRelationNameStatusCommentsMotherOther Social History Tobacco UseTypesPacks/DayYears UsedDateSmoking Tobacco: NeverSmokeless Tobacco: Never Tobacco Cessation:Counseling Given: Not Answered Alcohol UseStandard Drinks/WeekCommentsNever0 (1 standard drink = 0.6 oz pure alcohol)CommentsNoSex and Gender InformationValueDate RecordedSex Assigned at BirthNot on fileLegal ImgPgeuxc15/15/2023 11:00 PM EDTGender IdentityNot on fileSexual OrientationNot on file Last Filed Vital Signs Vital SignReadingTime TakenCommentsBlood Edqlrszy260/801 9:58 AM EDT Pulse--Temperature--Respiratory Rate--Oxygen Saturation--Inhaled Oxygen Concentration--Otbtec635 kg (266 lb)07/28/2025 9:58 AM AMGHqvumb107.9 cm (5' 1 ) 07/28/2025 9:58 AM EDTBody Mass Index50.261 9:58 AM EDT Plan of Treatment DateTypeDepartmentCare Team (Latest Contact Info)Xinqtipbbab70/01/2026 2:00 PM EDTOffice Visit [facility] [address] [place] [address] Mark Rosales, DO [address] [place] [address] Procedures Procedure NamePriorityDate/TimeAssociated DiagnosisCommentsPOCT , URINE Ffgjrsn9207/28/2025 10:00 AM EDT Menorrhagia with regular cycle Pelvic pain in female US PELVIC COMPLETE W/ WWXasyjoo84/02/2025 1:22 PM EDT Pelvic pain in female Encounter for management of menstrual issue from Last 3 Months Results * POCT , urine manually resulted (07/28/2025 10:00 AM EDT)Component ValueRef RangeTest MethodAnalysis TimePerformed AtPathologist SignaturePreg Test, UrNegativeNegativeSpecimen (Source)Anatomical Location / Laterality Collection Method / VolumeCollection TimeReceived VwglHdlec64/21/2025 10:00 AM EDT Narrative Authorizing ProviderResult TypeResult StatusCorey Connie DOPOINT OF CARE TEST ENTER/EDIT ORDERABLESFinal Result [...]
--- OUTSIDE RECORDS SUMMARY | 2025-08-21 10:20 | XMS_ITS | Patient Health Record ---
Author Organization [facility] [place] Address [address] [place] [address] Care Team Providers Care Sizing Sponger Name Role Phone Josh Sevilla Primary Care Provider Allergies Allergen (clinical drug ingredient) Drug/Non Drug Allergy documented on EMR Reaction Allergy Type Onset Date Status amoxicillin Amoxicillin anaphylaxis Drug Allergy ActivePenicillinanaphylaxisDrug AllergyActive Results Component Value Reference Range Notes IGP,Aptima HPV,Age Gdln Reviewed date:03/10/2025 04:15:52 PM Interpretation: Performing Lab: Notes/Report: BRUSH-SPATULA CERVIX ENDOCERVIX [facility] , Age Gdln ACOG Testing Note . <-Panic Low,>-Panic High,A-Abnormal,AA-Critical Abnormal 01 =G [facility] [place] FLAG LEGEND: [address] [place] [address] No. of containers..01 ThinPrep Vial L-Low Normal,H-High Normal,LL-Alert Low,HH-Alert High Age Algo ACOG Lena... 30-65 01 Clinician Provided Cytology Information TESTS RESULT FLAG UNITS REF RANGE LAB Sol Butt Wilfredo PEDRO, Performed at: Source.............Cervix;Endocer vix IGP, Aptima HPV, rfx 16/18,45 Note . the use of an image guided system. TESTS RESULT FLAG UNITS REF RANGE LAB uterine cervix. It is not a diagnostic procedure and Performed at: detection of premalignant and malignant conditions of the occur. NEGATIVE FOR INTRAEPITHELIAL LESION OR MALIGNANCY. . 02 Performed by: 02 should not be used as the sole means of detecting cervical Specimen adequacy: 02 [address] [place] [address] Note: Note 02 Test Methodology: Note 02 <-Panic Low,>-Panic High,A-Abnormal,AA-Critical Abnormal Gely Ochoa, Industrial Gas [employer] (ASCP) HPV Genotype Reflex Note 02 Satisfactory for evaluation. Endocervical and/or squamous metaplastic FLAG LEGEND: The Pap smear is a screening test designed to aid in the PREDOMINANCE OF COCCOBACILLI CONSISTENT WITH SHIFT IN VAGINAL ALIVIA IS This liquid based ThinPrep(R) pap test was screened with DIAGNOSIS: 02 cells (endocervical component) are present. Criteria not met, HPV Genotype not performed. 02 WB [facility] [place] PRESENT. cancer. Both false-positive and false-negative reports do L-Low Normal,H-High Normal,LL-Alert Low,HH-Alert High Sol Villalobos MD, HPV Aptima Negative Negative Administrative Project Coordinator: Sol Villalobos MD, Phone: [phone] without differentiation. risk HPV types (16,18,31,33,35,39,45,51,52,56,58 ,59,66,68) Administrative Project Coordinator: Sol Villalobos MD, Phone: [phone] [address] [facility], [place] [id number] [address] [place], [place] [id number] Performed at: [facility] This nucleic acid amplification test detects fourteen high- Performed at: =[facility] Performing Lab: see note - [facility] Reason For Referral No Information Medications Medication SIG (Take, Route, Frequency, Duration) Notes Start Date End Date Status Meloxicam 15 MG 1 tablet Orally Once a day; Dura tion: 30 day(s) 4Active Social History Tobacco Use: Social History Observation Description Date Details (start date - stop date) Never Smoker NA - NA Tobacco Control (Standard) Question Answer Notes Tobacco use: Nonsmoker AUDIT-C (Standard) Question Answer Notes Did you have a drink containing alcohol in the p ast year? No Ltbkmy4NrgkeiyqtcbzqeQtwfegkv Problems Problem Type SNOMED Code ICD Code Onset Dates Problem Status W/U Status Risk Notes Problem Well adult (500395862) Well adult (Z00.00 ) ActiveconfirmedProblemInjury of right lower leg (49637489534216641)Right knee injury, initial encounter (S89.91XA)Activeconfirmed Plan Of Treatment Pending Test Test Name Order Date CMP (COMPLETE METABOLIC PANEL) 4 HEMOGLOBIN A1C (GLYCO) 07/25/2024 IRON, TOTAL 07/25/2024 LIPID PANEL (CHOL/TRIG/HDL/LDL) 07/25/20 24 CBC WITH DIFF 07/25/2024 Insulin Level 07/25/2024 MRI KNEE RT WO CON 07/25/2024 THYROID PANEL (T4/TSH/FREE T3) 4 Insurance Providers Payer Name Payer Address Payer Phone Subscriber Number Group Number Insured Name Patient Relationship to Insured Coverage Start Date Coverage End Date ANA [employer] [address] [place] [address] [id number] Sera Acuna - patient is the insured Medical (General) History Surgical History Surgery Date(Month/Year) appendectomy 07/2021 09/28 tubal 11/30 gallbladder removed 03/30
--- OUTSIDE RECORDS SUMMARY | 2025-08-21 10:20 | XMS_ITS | Patient Health Record ---
Author Organization [facility] Address [address] [place] [address] Support Name Relationship Address Phone CLINT, DAVY Emergency Contact [address] [place] [address] PRUDENCIO JARAMILLO Guarantor Unknown Allergies Allergen (clinical drug ingredient) Drug/Non Drug Allergy documented on EMR Reaction Allergy Type Onset Date Status amoxicillin Amoxicillin Unknown Drug Allergy ActivePenicillinUnknownDrug AllergyActive Reason For Referral No Information Social History Tobacco Use: Social History Observation Description Date Details (start date - stop date) Former Smoker NA - NA Social History GeneralSocial InfoQuestionAnswerNotesDepression Screening (PHQ-9):Little interest or pleasure in doing thingsNearly every dayFeeling down, depressed, or hopelessNearly every dayTrouble falling or staying asleep, or sleeping too much Nearly every dayFeeling tired or having little energyNearly every dayPoor appetite or overeatingNearly every dayFeeling bad about yourself-or that you are a failure or have let yourself or your family downNearly every dayTrouble concentrating on things, such as reading the newspaper or watching television Nearly every dayMoving or speaking so slowly that other people could have noticed. Or the opposite being so fidgetyor restless that you have been moving around a lot more than usualNearly every dayThoughts that you would be better off , or of hurting yourself in some waySeveral days(Consider Suicide Assessment Risk)Total Eozjl94CaghdysrmcsojRkiruh DepressionSubstance abuse/mental health issues of patient/familyPatient -Illegal Drug Use very occasionally smokes marijuana Drug/Alcohol:Social InfoQuestionAnswerNotesAUDIT-C (Standard)Did you have a drink containing alcohol in the past year?NoPoints0 InterpretationNegativeTobacco Use:Social InfoQuestionAnswerNotesTobacco Control (Standard)Tobacco use:Former smoker? How long has it been since you last smoked? 5-10 years Problems Problem Type SNOMED Code ICD Code Onset Dates Problem Status W/U Status Risk Notes Problem Anxiety (64026342) Anxiety (F41.9) ActiveconfirmedProblemModerate recurrent major depression (32708690)Moderate episode of recurrent major depressive disorder (F33.1)ActiveconfirmedProblemBody mass index 40+ - severely obese (020733564)BMI 50.0-59.9, adult (Z68.43)Active confirmed Plan Of Treatment No Information Insurance Providers Payer Name Payer Address Payer Phone Subscriber Number Group Number Insured Name Patient Relationship to Insured Coverage Start Date Coverage End Date ANTHEM Primary [address] [place] [address] [id number] Jeffery JARAMILLO - patient is the [id number] 2023 Medical (General) History Surgical History Surgery Date(Month/Year) Appendectomy 2010 2020 2021 Salpingectomy 11/2022 Emergency Cholecystectomy 03/2023 D & C 2017 Hospitalization History Reason Date(Month/Year) Appendectomy Child
--- OUTSIDE RECORDS SUMMARY | 2025-08-21 10:20 | XMS_ITS | Clinical Summary ---
Author Organization [facility] Address [address] [place] [address] Phone Care Team Providers Care Senior Business Process Analyst Name Role Phone Pete Lao DO Primary Care Provider Social History Tobacco UseTypesPacks/DayYears UsedDateSmoking Tobacco: Never Assessed CommentsUnknownSex and Gender InformationValueDate RecordedSex Assigned at Not on fileLegal UggOuxmiz28/26/2022 1:04 PM ESTGender IdentityNot on fileSexual OrientationNot on file Plan of Treatment Not on file Care Teams Team MemberRelationshipSpecialtyStart DateEnd Date Pete Lao, [address] [facility] [address] [place] [address] PCP - Butelwu52/2/10
[2025-08-21 10:26] LABS: Hematocrit 42.9 % (36.0-48.0); Hemoglobin 13.8 g/dL (12.0-16.0); Immature Granulocytes Abs Auto 0.04 10^3/uL (0.00-0.03); Immature Granulocytes Pct Auto 0.4 % (0.0-0.5); Lymphocytes Absolute Auto 2.2 10^3/uL (1.2-3.8); Mean Corpuscular HGB Conc 32.2 g/dL (29.9-35.2); Mean Corpuscular Hemoglobin 27.5 pg (26.7-34.0); Mean Corpuscular Volume 85.5 fL (81.0-99.0); Platelet Count 309 10^3/uL (150-450); Red Blood Count 5.02 10^6/uL (4.20-5.40); White Blood Count 10.7 10^3/uL (4.0-11.0)
--- NOTE | 2025-08-21 11:44 | PM.ONB ---
Brief Operative Note Date of procedure: 08/21/25 Pre-op diagnosis general: pelvic pain, menorrhagia, dysmenorrhea, dysparuenia Post-op diagnosis: other (rt partial hydrosalpingx and omental adhesions) Procedure: NAME OF PROCEDURE: [ ] Julisa endometrial ablation with hysteroscopy, diagnostic laparoscopy. lysis of omental adhesions from anterior abdominal wall, removal of rt partial hydrosalpingx PROCEDURE: The patient was taken back to the OR where she was prepped and draped in the normal sterile fashion after being placed in the dorsal lithotomy position, after being placed under general anesthesia without difficulty.? A weighted speculum was placed into the vagina. The anterior lip was grasped with a single tooth tenaculum. The patient was then sounded to approximated 8cm. The patient?s cervix was gently dilated using hegardilators. The hysteroscope was passed through the cervix into the uterus where both ostia were seen. No gross evidence of polyps, fibroids or malignancy. The cervical length was noted to be 4 cm. The total cavity length is 4cm.? The Julisa ablation apparatus was set to approximately 4cm in length. This was placed through the cervix and into the uterus. After the seal was tested, at that time the total ablation of 120 seconds was performed with the Julisa with outdifficulty. All instruments were removed from the vagina. Excellent hemostasis noted.? A sponge stick was placed into the patient's vagina. Attention was turned to the patient's abdomen, where a small umbilical incision was made. The fascia was tented using Constantino clamps and the fascia was entered sharply. Confirmation of intraabdominal placement of the 10 mm port was confirmed under direct visualization using a laparoscope. The patient's abdomen was then insufflated using CO2 gas with approximately 4 liters. A second port was placed left laterally, this was done under direct visualization with a 5 mm port. Survey of the patient's abdomen demonstrated normal liver and gallbladder. Survey of the patient's pelvic anatomy demonstrated normal appearing rt and lt ovary and absent tubes as well as normal appearing uterus. No endometrial implants could be noted, no evidence of any pelvic disease was seen, normal appearing pelvic cavity. please note the ligasure was used to remove omental adhesions from the anterior abdominal wall and rt partial hydrosalpingx All instruments were removed from the patient's abdomen. The patient's abdomen was deinsufflated of CO2 gas. The patient tolerated the procedure well. Sponge stick was removed from the patient's vagina. The patient's infraumbilical fascia was closed using #0 Vicryl on a GI needle. The patient's skin was closed laterally and infraumbilically using 4-0 Vicryl. The patient tolerated the procedure well. Sponge, lap and needle counts were correct x 2. The patient was taken to Recovery Room in stable condition. Anesthesia: MOUNIKAA Surgeon: Mark Rosales Manager Wound Care: Blanca Sloan Estimated blood loss (mL): 5 Pathology: none sent Condition: stable Disposition: PACU Urinary Catheter Management Urinary Catheter Management Urethral: Cath placed during this visit: no
[2025-08-21] MEDS: HYDROCODONE/ACET 5-325 MG TABLET 1 TAB PO (14:10)
== END 2025-08-21 15:43 | disposition home or self-care (01) ==
LOC: SURGOUT 10:18
PROVIDERS: PCP Family Medicine; Visit Provider Obstetrics & Gynecology
PROC: (CPT 840; principal; 2025-08-21 11:45)
PROC: (CPT 840; 2025-08-21 11:45)
DX: N92.0 Excessive and frequent menstruation with regular cycle (principal); N93.9 Abnormal uterine and vaginal bleeding, unspecified; N83.201 Unspecified ovarian cyst, right side; N94.10 Unspecified dyspareunia; N70.11 Chronic salpingitis; K66.0 Peritoneal adhesions (postprocedural) (postinfection); Z98.51 Tubal ligation status; Z90.49 Acquired absence of other specified parts of digestive tract; E66.01 Morbid (severe) obesity due to excess calories; Z68.42 Body mass index [BMI] 45.0-49.9, adult; Z87.891 Personal history of nicotine dependence; F41.9 Anxiety disorder, unspecified
CPT/HCPCS: 58563; 58661; 36415; 84702; 85025; 88305; J0131; J1100; J1171; J1200; J1453; J1885; J2405; J2704

== ENCOUNTER 2025-08-24 13:26 | Emergency (ER) | payer BC, SELFPAY ==
[2025-08-24 13:43] VITALS: BP 144/90; PULSE 84; TEMP 37.1; O2SAT 97; BMI 49.1
--- NOTE | 2025-08-24 13:50 | ECG_ITS ---
[facility] Test Date: 2025-08-24 Pat Name: PRUDENCIO JARAMILLO Department: Room: - Gender: Female Rag Inspector: : 1995 Requested By: [id number] Order Number: [id number] Reading MD: NO RODRIGUEZ M.D. Measurements Intervals [place] Rate: 72 P: 16 KS: 164 QRS: 48 QRSD: 78 T: 39 QT: 350 QTc: 374 Interpretive Statements 1100 Sinus rhythm 8102 Low QRS voltage in chest leads 9120 atypical ECG No previous ECG available for comparison Electronically Signed On 08-24-2025 19:01:44 EST by NO RODRIGUEZ M.D.
--- NOTE | 2025-08-24 14:02 | ED_ITS ---
HPI HPI - General Adult General Chief complaint: Dizziness Stated complaint: POST OP COMPLICATIONS; CONFUSIONS, DIZZINESS,NAUSE Time Seen by Provider: 08/24/25 13:37 Source: patient Mode of arrival: walk-in Limitations: no limitations History of Present Illness HPI narrative: Patient is a 30-year-old female that presents to the emergency department with complaints of lightheadedness, forgetfulness, nausea, trouble staying awake that started yesterday. She is 3 days postop from a procedure with Dr. Rosales, an endometrial ablation with hysteroscopy, diagnostic laparoscopy, lysis of omental adhesions from anterior abdominal wall, removal of rt partial hydrosalpingx. She denies any vomiting but has been having more frequent bowel movements. She denies abdominal or chest pain. She denies urinary symptoms or fever, night sweats, or chills. She is taking ibuprofen as needed for pain. Related Data Previous Rx's ?Medication ?Instructions ?Recorded hydrocodone 5 mg-acetaminophen 325 1 tab PO Q4H PRN pa in 4 days #16 08/21/25 mg tablet tabs ibuprofen 800 mg tablet 800 mg PO Q8H PRN pain 14 da ys #40 08/21/25 tabs Allergies Allergy/AdvReac Type Severity Reaction Status Date / Time amoxicillin Allergy Rash Verified 08/11/25 12:43 Penicillins Allergy Rash Verified 08/11/25 12:43 Opioid HPI Opioid Management Most Recent Opioid Data: Last Pain Scale 3 08/21/25, 14:44 Last Pain Assessment 08/21/25, 15:43 Last MAR Pain Assessment 08/21/25, 14:10 Review of Systems ROS Status of ROS 10 or more systems reviewed and unremark able except as noted in history and below [facility] Medical History (Updated 08/24/25 @ 15:32 by MIO Avery) Panic attacks ?F41.0 - Panic disorder [episodic paroxysmal anxiety] (ICD-10) Anxiety ?F41.9 - Anxiety disorder, unspecified (ICD-10) Headache ?R51.9 - Headache, unspecified (ICD-10) Abdominal hernia ?K46.9 - Unspecified abdominal hernia without obstruction or gangrene (ICD- 10) Bacterial vaginosis ?N76.0 - Acute vaginitis (ICD-10) ?B96.89 - Other specified bacterial agents as the cause of diseases classified elsewhere (ICD-10) Ovarian cyst ?N83.209 - Unspecified ovarian cyst, unspecified side (ICD-10) Abnormal uterine bleeding ?N93.9 - Abnormal uterine and vaginal bleeding, unspecified (ICD-10) Pelvic pain ?R10.20 - (ICD-10) Menorrhagia ?N92.0 - Excessive and frequent menstruation with regular cycle (ICD-10) Surgical History (Updated 08/11/25 @ 12:48 by Abi Rain NP) History of bilateral salpingectomy ?Z90.79 - Acquired absence of other genital organ(s) (ICD-10) History of dilation and curettage ?Z98.890 - Other specified postprocedural states (ICD-10) History of colonoscopy ?Z98.890 - Other specified postprocedural states (ICD-10) History of cholecystectomy ?Z90.49 - Acquired absence of other specified parts of digestive tract (ICD- 10) History of section ?Z98.891 - History of uterine scar from previous surgery (ICD-10) History of section ?Z98.891 - History of uterine scar from previous surgery (ICD-10) History of appendectomy ?Z90.49 - Acquired absence of other specified parts of digestive tract (ICD- 10) Family History (Updated 08/11/25 @ 12:48 by Abi Rain NP) Other Family history of diabetes mellitus Family history of hypertension Family history of myocardial infarction Social History (Updated 08/11/25 @ 12:45 by Abi Rain NP) Within the past year, how often did you have a drink containing alcohol: never Score interpretation: A score less than 3 is consistent with normal alcohol consumption. 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 No rash. Head: Normocephalic, atraumatic. Neck: Supple, non-tender. Eye: Pupils are equal, round and EOMI. No scleral icterus. Ears, Nose, Mouth, and Throat: No nasal mucosal hypertrophy. Oral mucosa is moist, no posterior oropharynx erythema, uvula is mid-line Cardiovascular: Regular Rate and Rhythm without murmur, gallop or rub. Respiratory: No accessory muscle use or respiratory distress. Lungs are clear to auscultation, no wheezing, rales or rhonchi Chest Wall: no tenderness Musculoskeletal: Full ROM of all extremities, no calf or popliteal tenderness GI: Abdomen is soft, non-distended, non tender to palpation. No masses appreciated. No rebound, guarding, or rigidity noted. Surgical incisions with overlying Steri-Strips, mild surrounding patchy erythema around Steri-Strips. No drainage. Neurological: A&O x4. No cranial nerve dysfunction observed. No truncal ataxia. Moves all extremities. Sensation intact. Psychiatric: Cooperative and interactive. Normal mood and affect. Constitutional Vital Signs, click to edit/add: Last Vital Signs Temp 98.7 F 08/24/25 13:43 Pulse 84 08/24/25 13:43 Resp 18 08/24/25 13:43 BP 144/90 H 08/24/25 13:43 Pulse Ox 97 08/24/25 13:43 O2 Del Method Room Air 08/24/25 13:43 Documenting provider has reviewed patient's vital signs: yes Course Vital Signs Vital signs: Vital Signs Temperature 98.7 F 08/24/25 13:43 Pulse Rate 84 08/24/25 13:43 Respiratory Rate 18 08/24/25 13:43 Blood Pressure 144/90 H 08/24/25 13:43 Pulse Oximetry 97 08/24/25 13:43 Oxygen Delivery Method Room Air 08/24/25 13:43 Temperature 98.7 F 08/24/25 13:43 Pulse Rate 84 08/24/25 13:43 Respiratory Rate 18 08/24/25 13:43 Blood Pressure 144/90 H 08/24/25 13:43 Pulse Oximetry 97 08/24/25 13:43 Oxygen Delivery Method Room Air 08/24/25 13:43 Medical Decision Making MDM Narrative Medical decision making narrative: This is a 30-year-old female that presents to the ED 3 days postop from a endometrial ablation, diagnostic laparoscopy, lysis of omental adhesions from anterior abdominal wall, removal of rt partial hydrosalpingx with Dr. Rosales with complaints of lightheadedness, amnesia, and hard time staying awake that started yesterday. No abdominal or chest pain, no urinary symptoms. EKG on arrival sinus rhythm, HR 72, low QRS voltage in chest leads. No ischemic changes. On arrival patient is in no distress, vitals are hemodynamically stable, respiratory WNL, 97% O2 saturation on room air. Afebrile. Abdominal surgical incisions are closed with Steri-Strips, mild patchy erythema around Steri- Strips. No drainage. IV placed, 1 L NS ordered. CBC, CMP, mag, Phos, troponin, UA ordered. Labs including CBC, CMP, magnesium, phosphorus, troponin, and urinalysis were within normal limits except for large occult blood without evidence of infection. EKG demonstrated normal sinus rhythm. She received 1 liter of IV normal saline in the ED. Given the normal vitals, exam, and lab work, acute postoperative complications including bleeding, infection, electrolyte disturbances, or cardiac events were effectively ruled out. The most likely etiology of her symptoms is postoperative fatigue and mild dehydration. The patient tolerated fluids well in the ED and remains stable for discharge with supportive care and close follow-up with Dr Rosales, she has an appointment this week. She was given detailed return precautions and education regarding hydration, rest, and medication use. Patient was discharged in stable condition with plan for follow-up with REFINERY PROCESS ENGINEER, Dr. Rosales this week. Differential Diagnosis Differential Diagnosis: Electrolyte imbalance, postop anemia, postop GI changes Lab Data Lab results reviewed: Yes I reviewed the patient's lab results Labs: Lab Results 08/24/25 08/24/25 Range/Units 13:54 14:02 WBC 11.7 H (4.0-11.0) 10^3/uL RBC 4.60 (4.20-5.40) 10^6/uL Hgb 12.8 (12.0-16.0) g/dL Hct 39.7 (36.0-48.0) % MCV 86.3 (81.0-99.0) fL MCH 27.8 (26.7-34.0) pg MCHC 32.2 (29.9-35.2) g/dL RDW 13.4 (11.0-15.0) % Plt Count 300 (150-450) 10^3/uL MPV 9.6 (9.5-13.5) fL Neut % (Auto) 62.2 (43.0-75.0) % Lymph % (Auto) 28.9 (20.5-60.0) % Rice % (Auto) 5.6 (1.7-12.0) % Eos % (Auto) 2.4 (0.9-7.0) % Baso % (Auto) 0.4 (0.2-2.0) % Neut # (Auto) 7.3 H (1.4-6.5) 10^3/uL Lymph # (Auto) 3.4 (1.2-3.8) 10^3/uL Rice # (Auto) 0.7 (0.3-0.8) 10^3/uL Eos # (Auto) 0.3 (0.0-0.7) 10^3/uL Baso # (Auto) 0.1 (0.0-0.1) 10^3/uL Abs Immat Gran (auto) 0.06 H (0.00-0.03) 10^3/uL Imm/Tot Granulo (auto) 0.5 (0.0-0.5) % Sodium 143 (136-145) mmol/L Potassium 3.7 (3.5-5.1) mmol/L Chloride 107 (98-107) mmol/L Carbon Dioxide 30.1 (21.0-32.0) mmol/L Anion Gap 9.6 BUN 15.0 (7.0-18.0) mg/dL Creatinine 0.62 (0.55-1.02) mg/dL Est GFR ( Amer) >60 (>=60 mL/min/1.73m^2) Est GFR (Non-Af Amer) >60 (>=60 mL/min/1.73m^2) BUN/Creatinine Ratio 24.2 Glucose 89 (74-106) mg/dL Calcium 9.1 (8.5-10.1) mg/dL Phosphorus 3.4 (2.6-4.7) mg/dL Magnesium 1.8 (1.8-2.4) mg/dL Total Bilirubin 0.3 (0.2-1.0) mg/dL AST 8 L (15-37) U/L ALT 15 (14-59) U/L Alkaline Phosphatase 84 (46-116) U/L Troponin I High Sens 6.3 (4.0-51.3) pg/mL Total Protein 6.9 (6.4-8.2) g/dL Albumin 3.1 L (3.4-5.0) g/dL Globulin 3.8 g/dL Albumin/Globulin Ratio 0.8 Urine Color Lt. yellow (YELLOW) Urine Clarity Clear (CLEAR) Urine pH 6.0 (5.0-9.0) Ur Specific [place] 1.020 (1.005-1.025) Urine Protein Trace (NEG/TRACE) mg/dL Urine Glucose (UA) Negative (NEGATIVE) mg/dL Urine Ketones Negative (NEGATIVE) mg/dL Urine Occult Blood Large A (NEGATIVE) Urine Nitrite Negative (NEGATIVE) Urine Bilirubin Negative (NEGATIVE) Urine Urobilinogen 1.0 (0.2-1.0) EU/dL Ur Leukocyte Esterase Negative (NEGATIVE) Urine RBC 10-20 A (0-2) #/HPF Urine WBC 2-5 A (NONE SEEN) #/HPF Ur Squamous Epith Cells Moderate A (NONE/RARE) #/LPF Urine Crystals None seen (None Seen) #/HPF Urine Bacteria Large A (NONE SEEN) #/HPF Urine Casts None seen (NONE SEEN) #/LPF Urine Mucus Moderate A (NONE SEEN) Ur Culture Indicated? [facility] ECG Data Attestation: ?I have reviewed the pertinent ECG results. Discharge Plan Discharge Chief Complaint: Dizziness Clinical Impression: Decreased energy Patient Disposition: Home, Self-Care Time of Disposition Decision: 15:29 Condition: Good Mode of Transportation: Private Vehicle Prescriptions / Home Meds: No Action ibuprofen 800 mg tablet 800 mg PO Q8H PRN (Reason: pain) 14 Days Qty: 40 0RF hydrocodone-acetaminophen 5-325 mg tablet 1 tab PO Q4H PRN (Reason: pain) 4 Days Qty: 16 0RF Print Language: Citizen Of [place] Additional Instructions: 1. Hydration * Drink plenty of fluids: water, electrolyte drinks (Gatorade, Pedialyte), broth. * Aim for 6?8 glasses of fluids per day unless otherwise restricted. 2. Activity * Rest for the next 24?48 hours. * Move slowly from lying to sitting or standing to avoid lightheadedness. 3. Medications * Avoid sedating medications such as: * Opioids (if possible), muscle relaxants * Antihistamines (diphenhydramine/Benadryl, hydroxyzine) * Promethazine * You may use acetaminophen or ibuprofen for pain as directed unless advised otherwise by your surgeon. 4. Nutrition * Light meals today; advance as tolerated. * Avoid alcohol and caffeine until symptoms improve. When to Seek Medical Care Immediately Return to the ER or call 911 if you develop: * Fever, chills, or signs of infection * Severe abdominal pain or increasing pelvic pain * Persistent vomiting or inability to keep fluids down * Chest pain, shortness of breath, or rapid heart rate * Worsening confusion, difficulty staying awake, or fainting * Heavy vaginal bleeding * Any new or concerning symptoms Follow-Up * Contact your surgeon, Dr. Rosales, within 24?48 hours to update them on your symptoms and ED evaluation. * Follow postoperative instructions as previously provided. Referrals: Mark Rosales DO [Physician, REFINERY PROCESS ENGINEER] - 1 week Referral Note: As scheduled this week. Colin Sevilla MD [Primary Care Provider, [facility]] - 1 week Discharge Date/Time: 08/24/25 15:45
[2025-08-24 14:10] LABS: Hematocrit 39.7 % (36.0-48.0); Hemoglobin 12.8 g/dL (12.0-16.0); Immature Granulocytes Abs Auto 0.06 10^3/uL (0.00-0.03); Immature Granulocytes Pct Auto 0.5 % (0.0-0.5); Lymphocytes Absolute Auto 3.4 10^3/uL (1.2-3.8); Mean Corpuscular HGB Conc 32.2 g/dL (29.9-35.2); Mean Corpuscular Hemoglobin 27.8 pg (26.7-34.0); Mean Corpuscular Volume 86.3 fL (81.0-99.0); Platelet Count 300 10^3/uL (150-450); Red Blood Count 4.60 10^6/uL (4.20-5.40); White Blood Count 11.7 10^3/uL (4.0-11.0)
[2025-08-24 14:10] LABS: Glucose Urine UA NEGATIVE (NEGATIVE)
[2025-08-24 14:27] LABS: Cast Seen? NONE SEEN #/LPF (NONE SEEN); Crystals Seen? None Seen #/HPF (None Seen); Urine Culture Indicated YES-FRMC
[2025-08-24] MEDS: 0.9 % SODIUM CHLORIDE 1,000 ML 1000 ML IV (14:27)
[2025-08-24 14:31] LABS: Alanine Aminotransferase 15 U/L (14-59); Albumin Globulin Ratio 0.8; Albumin Level 3.1 g/dL (3.4-5.0); Alkaline Phosphatase 84 U/L (46-116); Anion Gap 9.6; Aspartate Amino Transferase 8 U/L (15-37); Blood Urea Nitrogen 15.0 mg/dL (7.0-18.0); Calcium 9.1 mg/dL (8.5-10.1); Carbon Dioxide 30.1 mmol/L (21.0-32.0); Chloride 107 mmol/L (98-107); Estimated GFR (African America >60 (>=60 mL/min/1.73m^2); Estimated GFR (Non-African Ame >60 (>=60 mL/min/1.73m^2); Globulin 3.8 g/dL; Glucose 89 mg/dL (74-106); Potassium 3.7 mmol/L (3.5-5.1); Sodium 143 mmol/L (136-145); Total Protein 6.9 g/dL (6.4-8.2)
[2025-08-24 14:35] LABS: Magnesium 1.8 mg/dL (1.8-2.4)
--- OUTSIDE RECORDS SUMMARY | 2025-08-24 14:46 | XMS_ITS | Clinical Summary ---
Author Organization [facility] Address [address] [place] [address] Phone Care Team Providers Care Hide Dyer Name Role Phone Pete Lao DO Primary Care Provider [phone] Social History Tobacco UseTypesPacks/DayYears UsedDateSmoking Tobacco: Never Assessed CommentsUnknownSex and Gender InformationValueDate RecordedSex Assigned at Not on fileLegal BqbDquftj26/26/2022 1:04 PM ESTGender IdentityNot on fileSexual OrientationNot on file Plan of Treatment Not on file Care Teams Team MemberRelationshipSpecialtyStart DateEnd Date Pete Lao, [address] [facility] [address] [place] [address] PCP - Zaqvyvz32/2/10
--- OUTSIDE RECORDS SUMMARY | 2025-08-24 14:47 | XMS_ITS | Patient Health Record ---
Author Organization [facility] Address [address] [place] [address] Support Name Relationship Address Phone CLINT, DAVY Emergency Contact [address] [place] [address] PRUDENCIO JARAMILLO Guarantor Unknown Allergies [...] in some waySeveral days(Consider Suicide Assessment Risk)Total Wjkgd81ZvlgtbvrpnsblTldnly DepressionSubstance abuse/mental health issues of patient/familyPatient -Illegal Drug Use very occasionally smokes marijuana Drug/Alcohol:Social InfoQuestionAnswerNotesAUDIT-C (Standard)Did you have a drink containing alcohol in the past year?NoPoints0 InterpretationNegativeTobacco Use:Social InfoQuestionAnswerNotesTobacco Control (Standard)Tobacco use:Former smoker? How long has it been since you last smoked? 5-10 years Problems Problem Type SNOMED Code ICD Code Onset Dates Problem Status W/U Status Risk Notes Problem Anxiety (28809205) Anxiety (F41.9) ActiveconfirmedProblemModerate recurrent major depression (23864362)Moderate episode of recurrent major depressive disorder (F33.1)ActiveconfirmedProblemBody mass index 40+ - severely obese (055391754)BMI 50.0-59.9, adult (Z68.43)Active confirmed Plan Of Treatment No Information Insurance Providers Payer Name Payer Address Payer Phone Subscriber Number Group Number Insured Name Patient Relationship to Insured Coverage Start Date Coverage End Date [employer]THE[employer] Primary [address] [place] [address] [id number] Jeffery JARAMILLO - patient is the [id number] 2023 Medical (General) History Surgical History Surgery Date(Month/Year) Appendectomy 2010 2020 2021 Salpingectomy 11/2022 Emergency Cholecystectomy 03/2023 D & C 2017 Hospitalization History Reason Date(Month/Year) Appendectomy Child
--- OUTSIDE RECORDS SUMMARY | 2025-08-24 14:47 | XMS_ITS | Clinical Summary ---
Author Organization [facility] Address [address] [facility], [address] [place] [address] Care Team Providers Care Cushion Installer Name Role Phone CarterDiogenes Primary Care Provider [phone] Allergies Active AllergyReactionsCriticalityNoted HuoqAxqehnjeSyahleuzpyqMpefOqm44/12/2025 MplzmxlsnrgRmguKus24/23/2014 Medications MedicationSigDispense QuantityRefillsLast FilledStart DateEnd DateStatus hydrocortisone (ANUSOL-HC) 25 MG suppository Indications:Blood in stoolPlace 1 suppository rectally in the morning and 1 suppository in the evening. 24 suppository 5Active Active Problems ProblemNoted DateDiagnosed AdqgUifiymmfxzm02/10/2025lood per tsutbt8003/10/2025 Cholelithiasis with chronic whhowubzhaiwg61/15/2023 Overview (05/22/2023): Added automatically from request for surgery [id number] Borderline systolic HTN03/18/2018 Overview (03/18/2018): When on combined OCP Morbid zlyauwg4203/14/2018History of tobacco abuse03/14/2018Oligo-ovulation 06/30/20144782Qleupwuyqhnhck76/23/2014DUB (dysfunctional uterine bleeding) Resolved Problems ProblemNoted DateDiagnosed DateResolved PpvgSgyv05/re- operative iaorjyonv88/07/880410/04/2018 Family History Medical HistoryRelationNameCommentsNo Known ProblemsBrotherHypertensionFather RogerObesityFatherRogerNo Known ProblemsMaternal GrandfatherNo Known Problems Maternal GrandmotherHeart AttackMaternal UncleGregAllergy (Severe)MotherAngela HypertensionMotherAngelaNo Known ProblemsOtherHeart AttackPaternal Grandfather RogerHeart DiseasePaternal GrandfatherRogerNo Known ProblemsPaternal Grandmother Breast CancerNeg HxCancerNeg HxColon CancerNeg HxDiabetesNeg HxEclampsiaNeg Hx Ovarian CancerNeg HxPreterm LaborNeg HxSpont AbortionsNeg HxStrokeNeg HxRelation NameStatusCommentsBrotherFatherRogerAliveMaternal GrandfatherMaternal GrandmotherMaternal UncleGregAliveMotherAngelaAliveOtherPaternal Grandfather RogerPaternal GrandmotherSisterAlive Social History Tobacco UseTypesPacks/DayYears UsedDateSmoking Tobacco: FormerCigarettes0.31 10/08/2014 - 2015Smokeless Tobacco: Never Tobacco Cessation:Counseling Given: No Comments:quit 2015 Alcohol UseStandard Drinks/WeekCommentsNo0 (1 standard drink = 0.6 oz pure alcohol)[facility] UtilitiesAnswerDate RecordedIn the past 12 months has the electric, gas, oil, or water [employer] threatened to shut off services in your home?No 02/06/2025PHQ-2AnswerDate RecordedPHQ-9 Total Xkjmw995Exercise Vital SignAnswerDate RecordedOn average, how many days per week do you engage in moderate to strenuous exercise (like a brisk walk)?3 days02/05/2025On average, how many minutes do you engage in exercise at this level?60 min02/05/2025Hunger Vital SignAnswerDate RecordedWithin the past 12 months, you worried that your food would run out before you got the money to buymore.Never true02/06/2025 Within the past 12 months, the food you bought just didn't last and you didn't have money to get more.Never true02/06/2025PRAPARE - TransportationAnswerDate RecordedIn the past 12 months, has lack of transportation kept you from medical appointments or from getting medications?No02/06/2025In the past 12 months, has lack of transportation kept you from meetings, work, or from getting things needed for daily living?02/06/2025Housing Stability Vital SignAnswerDate RecordedIn the last 12 months, was there a time when you were not able to pay the mortgage or rent on time?No02/06/2025In the past 12 months, how many times have you moved where you were living?t any time in the past 12 months, were you homeless or living in a skilled nursing (including now)?No02/06/2025 Food InsecurityAnswerDate RecordedWithin the past 12 months, you worried that your food would run out before you got the money to buymore.Within the past 12 months, the food you bought just didn't last and you didn't have money to get more.Interpersonal Safety Domain Source: IP Abuse ScreeningAnswerDate RecordedRead-Only, Retired: Physical DeyejBvrmwp07/11/2023 Read-Only, Retired: Verbal MtpaoDrvcqp45/11/2023Read-Only, Retired: Emotional mafnrEqxttr38/11/2023Read-Only, Retired: Financial SwjaaZsfdez06/11/2023Read- Only, Retired: Sexual edkhtYkvdqd23/11/2023CommentsNoSex and Gender InformationValueDate RecordedSex Assigned at BirthNot on fileLegal SexFemale 11/18/2012 10:06 PM ESTGender IdentityNot on fileSexual OrientationNot on file Last Filed Vital Signs Vital SignReadingTime TakenCommentsBlood Szuezlkd071/8007 9:57 AM EDT Yoguk90507/10/2025 9:57 AM NQYDtszfduurwo45.3 ??C (97.3 ??F)03/19/2025 10:10 AM EDTRespiratory Bfcz754103/19/2025 11:21 AM EDTOxygen Gslvxzhksv82%04/16/2025 9:57 AM EDTInhaled Oxygen Concentration--Rzdsot990.9 kg (260 lb)04/16/2025 9:57 AM VLNUdpuua531.9 cm (5' 1 )03/19/2025 10:10 AM EDTBody Mass Index49.13003/19/2025 10:10 AM EDT Plan of Treatment Health MaintenanceDue DateLast DoneCommentsVaricella vaccine (1 of 2 - 13+ 2- dose series)2006HIV oucpic4707/12/2008Hepatitis C nyxlwp7207/12/2011Hepatitis B vaccine (1 of 3 - 19+ 3-dose series)2012Pap smear/, 09/16/2015, 06/30/2014Cervical cancer jlgevw0207/12/2023HPV (without or with Pap) 2023Flu vaccine (#1)05/08/2025OVID-19 Vaccine ( - season) 2025Depression Tqbiwk41/11/2024, 02/06/2025DTaP/Tdap/Td vaccine (2 - Tdap)HPV vaccine (No Doses Required)CompletedHepatitis A vaccineAged OutNo longer eligible based on patient's age to complete this topicHib vaccineAged OutNo longer eligible based on patient's age to complete this topicMeningococcal (ACWY) vaccineAged OutNo longer eligible based on patient's age to complete this topicMeningococcal B vaccineAged OutNo longer eligible based on patient's age to complete this topicPneumococcal 0-49 years VaccineAged OutNo longer eligible based on patient's age to complete this topic Polio vaccineAged OutNo longer eligible based on patient's age to complete this topic Procedures Procedure NamePriorityDate/TimeAssociated DiagnosisCommentsPAP SMEARRoutine 01/24/2018 PCB (post coital bleeding) Irregular menses Special screening examination for human papillomavirus (HPV) Screening for cervical cancer from Last 3 Months or Most Recently Relevant to Health Maintenance Results * PAP SMEAR (01/24/2018)Specimen (Source)Anatomical Location / Laterality Collection Method / VolumeCollection TimeReceived TimeCERVICAL SWAB / Unknown Narrative Authorizing ProviderResult TypeResult StatusTracy A Alex MDPATHOLOGY/CYTOLOGY ORDERABLESFinal ResultPerforming OrganizationAddressCity/State/ZIP CodePhone Number [facility] [address] [place] [address], [facility] [phone] from Last 3 Months or Most Recently Relevant to Health Maintenance Insurance Advance Directives * Full Code (Latest Code Status on File) Date ActivatedDate InactivatedComments03/19/2025 9:51 AM03/19/2025 1:38 PM * Full Code Date ActivatedDate InactivatedComments05/28/2023 6:49 AM05/28/2023 3:38 PM * Full Code Date ActivatedDate InactivatedComments03/20/2018 8:15 AM03/20/2018 11:52 AM Care Teams Team MemberRelationshipSpecialtyStart DateEnd Date Diogenes Machado DO [address] [place] [address] PCP - GeneralFamily Medicine03/20/25
--- OUTSIDE RECORDS SUMMARY | 2025-08-24 14:47 | XMS_ITS | Patient Health Record ---
Author Organization [facility] [place] Address [address] [place] [address] Care Team Providers Care Slate Picker Name Role Phone Josh Sevilla Primary Care Provider Allergies Allergen (clinical drug ingredient) Drug/Non Drug Allergy documented on EMR Reaction Allergy Type Onset Date Status amoxicillin Amoxicillin anaphylaxis Drug Allergy ActivePenicillinanaphylaxisDrug AllergyActive Results Component Value Reference Range Notes IGP,Aptima HPV,Age Gdln Reviewed date:03/10/2025 04:15:52 PM Interpretation: Performing Lab: Notes/Report: BRUSH-SPATULA CERVIX ENDOCERVIX [facility] , Age Gdln ACOG Testing Note . TESTS RESULT FLAG UNITS REF RANGE LAB Clinician Provided Cytology Information Source.............Cervix;Endocer vix No. of containers..01 ThinPrep Vial Age Algo ACOG Lena... 30-65 01 FLAG LEGEND: L-Low Normal,H-High Normal,LL-Alert Low,HH-Alert High <-Panic Low,>-Panic High,A-Abnormal,AA-Critical Abnormal Performed at: 01 =[facility] [place] [address] Sol Villalobos MD, IGP, Aptima HPV, rfx 16/18,45 Note . TESTS RESULT FLAG UNITS REF RANGE LAB DIAGNOSIS: 02 NEGATIVE FOR INTRAEPITHELIAL LESION OR MALIGNANCY. PREDOMINANCE OF COCCOBACILLI CONSISTENT WITH SHIFT IN VAGINAL ALIVIA IS PRESENT. Specimen adequacy: 02 Satisfactory for evaluation. Endocervical and/or squamous metaplastic cells (endocervical component) are present. Performed by: Michael Ochoa, Broomcorn Seeder (ASC) . 02 Note: Note 02 The Pap [...] <-Panic Low,>-Panic High,A-Abnormal,AA-Critical Abnormal Performed at: [address] [facility] [address] Sol Villalobos MD, HPV Aptima Negative Negative This nucleic acid amplification test detects fourteen high- risk HPV types (16,18,31,33,35,39,45,51,52,56,58 ,59,66,68) without differentiation. Performed at: = - [facility] [address] [id number] [place] Operator: Sol Villalobos MD, Phone: [phone] Performed at: - [facility] [id number] [place] Operator: Sol Villalobos MD, Phone: [phone] Performing Lab: see note - [facility] LBCBC AUTO DIFF Reviewed date:08/22/2025 01:13:09 PM Interpretation: Performing Lab: Notes/Report: [facility] ,White Blood Count10.74.0-11.0 10 3/uLRed Blood Count5.024.20-5.40 10 6/uL Gwmvcqgkan95.812.0-16.0 g/pKNfuiotvisg56.936.0-48.0 %Mean Corpuscular Xpsqym90.5 81.0-99.0 fLMean Corpuscular Ggjpqncrqa80.526.7-34.0 pgMean Corpuscular HGB Conc 32.229.9-35.2 g/dLRed Cell Distribution Width13.111.0-15.0 %Platelet Evlkk577 150-450 10 3/uLMean Platelet Volume9.69.5-13.5 fLNeutrophils Percent Auto71.1 43.0-75.0 %Lymphocytes Percent Auto20.520.5-60.0 %Monocytes Percent Auto5.81.7- 12.0 %Eosinophils Percent Auto1.80.9-7.0 %Basophils Percent Auto0.40.2-2.0 % Immature Granulocytes Pct Auto0.40.0-0.5 %Neutrophils Absolute Auto7.61.4-6.5 10 3/uLLymphocytes Absolute Auto2.21.2-3.8 10 3/uLMonocytes Absolute Auto0.60.3-0.8 10 3/uLEosinophils Absolute Auto0.20.0-0.7 10 3/uLBasophils Absolute Auto0.00.0- 0.1 10 3/uLImmature Granulocytes Abs Auto0.040.00-0.03 10 3/uLPerforming Lab:see noteML - [facility] LBPREG QUANT HCG Reviewed date:08/22/2025 01:13:09 PM Interpretation: Performing Lab: Notes/Report: [facility] ,HCG Quantitative<1 5-50 0.2-1 WEEK 50-500 1-2 WEEKS 100-5,000 2-3 WEEKS 500-10,000 3-4 WEEKS 1,000-50,000 4-5 WEEKS 10,000-100,000 5-6 WEEKS 15,000-200,000 6-8 WEEKS 10,000-100,000 2-3 MONTHS Performing Lab:see noteML - [facility] LBMAGNESIUM (Not yet reviewed by provider) Interpretation: Performing Lab: Notes/Report: [facility] ,Magnesium1.81.8-2.4 mg/dLPerforming Lab:see note - [facility] LB PHOSPHORUS (Not yet reviewed by provider) Interpretation: Performing Lab: Notes/Report: [facility] ,Phosphorus3.42.6-4.7 mg/dLPerforming Lab:see note - [facility] LB PROF 14(COMP METB) (Not yet reviewed by provider) Interpretation: Performing Lab: Notes/Report: [facility] ,Yaaanc019547-577 mmol/LPotassium3.73.5-5.1 mmol/CLaltiypu16121-437 mmol/LCarbon Bqlnezi34.121.0-32.0 mmol/LAnion Gap9.7Xxoglmu0657-976 mg/dLBlood Urea Nitrogen 15.07.0-18.0 mg/dLCreatinine0.620.55-1.02 mg/dLEstimated GFR ( Hetal>60 >=60 mL/min/1.73m 2Estimated GFR (Non- Cindy>60>=60 mL/min/1.73m 2BUN Creatinine Ratio24.4Edgjpmp0.18.5-10.1 mg/dLBilirubin Total0.30.2-1.0 mg/dL Aspartate Amino Bxicftdxrrb005-27 U/LAlanine Dflobwguvddkeolk6436-77 U/LAlkaline Aqtibnoospv9569-152 U/LTotal Protein6.96.4-8.2 g/dLAlbumin Level3.13.4-5.0 g/dL Globulin3.8Albumin Globulin Ratio0.8Performing Lab:see noteML - [facility] LBTroponin I High Sensitivity (Not yet reviewed by provider) Interpretation: Performing Lab: Notes/Report: [facility] ,Troponin I High Sensitivity6.34.0-51.3 pg/mL CUT-OFF POINTS HAVE BEEN ESTABLISHED BASED ON THE FOURTH UNIVERSAL DEFINITION OF MYOCARDIAL INFARCTION. THE UPPER REFERENCE LIMIT (URL) OF TROPONIN, DEFINED THE 99TH PERCENTILE OF cTnI DISTRIBUTION IN A REFERENCE POPULATION, HAS BEEN CONFIRMED THE DECISION THRESHOLD FOR NM DIAGNOSIS. 99TH PERCENTILE = 51.4 PG/ML NOTE: HIGH-SENSITIVITY TROPONIN ASSAY IS NOT INTENDED TO BE USED IN ISOLATION BUT SHOULD BE INTERPRETED IN CONJUNCTION WITH OTHER DIAGNOSTIC AND CLINICAL INFORMATION. Performing Lab:see noteML - [facility] LBUrine Culture - [facility] (Not yet reviewed by provider) Interpretation: Performing Lab: Notes/Report: [facility] ,Urine Culture [facility] For [facility] [place] Pending - Specimen sent to [facility]^Pending - Specimen sent to [facility] Performing Lab:see noteML - [facility] LBCBC AUTO DIFF Reviewed date:08/24/2025 02:25:46 PM Interpretation: Performing Lab: Notes/Report: [facility] ,White Blood Count11.74.0-11.0 10 3/uLRed Blood Count4.604.20-5.40 10 6/uL Npxthwncml40.812.0-16.0 g/jIRhkcvjoare95.736.0-48.0 %Mean Corpuscular Epdmvb39.3 81.0-99.0 fLMean Corpuscular Fpabtcxcbo47.826.7-34.0 pgMean Corpuscular HGB Conc 32.229.9-35.2 g/dLRed Cell Distribution Width13.411.0-15.0 %Platelet Xvagr578 150-450 10 3/uLMean Platelet Volume9.69.5-13.5 fLNeutrophils Percent Auto62.2 43.0-75.0 %Lymphocytes Percent Auto28.920.5-60.0 %Monocytes Percent Auto5.61.7- 12.0 %Eosinophils Percent Auto2.40.9-7.0 %Basophils Percent Auto0.40.2-2.0 % Immature Granulocytes Pct Auto0.50.0-0.5 %Neutrophils Absolute Auto7.31.4-6.5 10 3/uLLymphocytes Absolute Auto3.41.2-3.8 10 3/uLMonocytes Absolute Auto0.70.3-0.8 10 3/uLEosinophils Absolute Auto0.30.0-0.7 10 3/uLBasophils Absolute Auto0.10.0- 0.1 10 3/uLImmature Granulocytes Abs Auto0.060.00-0.03 10 3/uLPerforming Lab:see noteML - [facility] LBUA (CLEAN or CATCH) FIBERGLASS PRODUCT TESTER or MICRO IF IND. Reviewed date:08/24/2025 02:25:46 PM Interpretation: Performing Lab: Notes/Report: [facility] ,Color UrineLT. YELLOWYELLOWClarity UrineCLEARCLEARSpecific [place] Urine1.020 1.005-1.025pH Urine6.05.0-9.0Protein UrineTRACENEG/TRACE mg/dLGlucose Urine UA NEGATIVENEGATIVE mg/dLBilirubin UrineNEGATIVENEGATIVEKetones UrineNEGATIVE NEGATIVE mg/dLBlood UrineLARGENEGATIVENitrite UrineNEGATIVENEGATIVEUrobilinogen Urine1.00.2-1.0 EU/dLLeukocyte Esterase UrineNEGATIVENEGATIVEUrine Microscopic IndicatedYESPerforming Lab:see noteML - [facility] LBECG 12 lead Reviewed date:08/24/2025 02:25:46 PM Interpretation: Performing Lab: Notes/Report: Source Facility: [facility]-[address] [place] [address] [place] [address] Electrocardiograph Report Draft Patient: CATHI ACUNA MR#: [id number] : 1995 Acct:[id number] Age/Sex: 30 / F ADM Date: Loc: ER Attending Dr: Ordering Physician: Malou Emerson Date of Service: 08/24/25 Procedure(s): ECG 12 lead Accession Number(s): [id number] cc: [facility] Test Date: 2025-08-24 Pat Name: CATHI ACUNA Department: Room: - Gender: Female Payroll Manager: : 1995 Requested By: [id number] Order Number: [id number] Reading MD: Measurements Intervals [place] Rate: 72 P: 16 NE: 164 QRS: 48 QRSD: 78 T: 39 QT: 350 QTc: 374 Interpretive Statements 1100 Sinus rhythm 8102 Low QRS voltage in chest leads 9120 atypical ECG No previous ECG available for comparison Dictated By: Raymond Kuo Signed By: DD/ 1404 TD/TT: Research & Analytics Manager: Reason For Referral No Information Medications Medication [...] alcohol in the p ast year? No Nmkfpp0IzkzvgfmrzljpzBxbeysjb Problems Problem Type SNOMED Code ICD Code Onset Dates Problem Status W/U Status Risk Notes Problem Well adult (200782381) Well adult (Z00.00 ) ActiveconfirmedProblemInjury of right lower leg (48592666972290338)Right knee injury, initial encounter (S89.91XA)Activeconfirmed Encounters Encounter Location Date Provider Diagnosis [facility] [address] [place] [address] 08/24/2025 Josh Sevilla Plan Of Treatment Pending Test Test Name Order Date CMP (COMPLETE METABOLIC PANEL) HEMOGLOBIN A1C (GLYCO) 07/25/2024 IRON, TOTAL 07/25/2024 LIPID PANEL (CHOL/TRIG/HDL/LDL) 07/25/20 24 CBC WITH DIFF 07/25/2024 Insulin Level 07/25/2024 MAGNESIUM 08/24/2025 PHOSPHORUS 08/24/2025 PROF 14(COMP METB) 08/24/2025 MRI KNEE RT WO CON 07/25/2024 THYROID PANEL (T4/TSH/FREE T3) 4 Troponin I High Sensitivity 08/24/2025 [place] [facility] [place]/24/[place]25 Insurance Providers Payer Name Payer Address Payer Phone Subscriber Number Group Number Insured Name Patient Relationship to Insured Coverage Start Date Coverage End Date [employer] [address] [place] [address] [id number] Sera Acuna - patient is the insured Medical (General) History Surgical History Surgery Date(Month/Year) gallbladder removed 03/30 tubal 11/30 09/28 07/2021 appendectomy
--- OUTSIDE RECORDS SUMMARY | 2025-08-24 14:48 | XMS_ITS | CCD ---
Author Organization [facility] [place] [facility] Providers Care Laborer Gold [place] Name Role Phone Shanique Roman Primary Care [...] SARABIA Attending Unavailable EUSEBIO SARABIA Admitting Unavailable HOFFMAN, DR KIRSTEN Alvarado Consulting Unavailable CONNIE ., [...] VILLAGOMEZ - Mirza ALCANTARA Primary Care Provider ELIZABETH CRUZ Primary Care Physician AUTUMN Cruz Primary Care Provider AUTUMN Cruz Attending Provider AUTUMN Cruz Primary Care Provider DAHLIA Alvarado Attending Provider [phone] Debra Juan Attending Unavailable Unavailable Primary Care [...] Attending Unavailable Mark Rosales DO Attending Provider [phone] Kentrell King Admitting Unavailable Kentrell King Attending Unavailable Bailee Myers Primary Care Unavailable Mark Rosales Admitting Unavailable Mark Rosales Attending Unavailable Allergies Allergy ClassificationReported Allergen(s)Allergy TypeDate of OnsetReaction(s) Facility (20 sources)Amoxicillin; Translations: [amoxicillin]Drug Tinoztj72-51-4578[facility] ([facility] sources)Penicillins; Translations: [penicillins]Drug cbhbpky03-49-0633CtccJ.[facility]. [facility] (1 source)AmoxicillinDrug AllergyThe [facility] (1 source)PenicillinDrug AllergyFairfield [facility] (1 source)AmoxicillinDrug Imyxgyq11-67-3021TzpvgdllfPromedica [facility] Medications Current Medications MedicationDrug Class(es)DatesSig (Normalized)Sig (Original)acetaminophen 500 mg oral tablet (2 sources)take 1 tablet by mouth every six hours as needed for pain acetaminophen (TYLENOL) 500 MG tablet Take 1 tablet by mouth every 6 hours as needed for Pain 0 Activeazithromycin 500 mg oral tablet (2 sources)Macrolide AntimicrobialStart: 12-19-2023 End: 77-84-6987wjqq 1 tablet by mouth once dailyZithromax 500 mg oral tablet 500 mg = 1 tab(s), Oral, Daily, X 5 day(s), # 5 tab(s), Refills(s) 0, Pharmacy: [facility]/pharmacy #[id number], 155, cm, 12/19/23 12:54:00 EDT, Height/Length Dosing, 127.3, kg, 12/19/23 12:54:00 EDT, Weight Dosing Start Date: 12/19/23 Stop Date: 12/24/23 Status: Orderedcephalexin 500 mg oral capsule (1 source)Cephalosporin AntibacterialStart: 05-06-2022 End: 01-33-2473oosp 1 capsule by mouth three times dailyKeflex 500 mg Cap 500 mg = 1 cap(s), Oral, TID, X 5 day(s), # 15 cap(s), Refills(s) 0 Start Date: Stop Date: 05/11/22 Status: Ordereddicyclomine hydrochloride 20 mg oral tablet (2 sources)AnticholinergicStart: 18-39-0673nwea 1 tablet by mouth four times daily as needed for paindicyclomine (BENTYL) 20 MG tablet Take 1 tablet by mouth 4 times daily as needed (abdominal pain) 20 tablet 0 05/18/2023 Active doxycycline hyclate 100 mg oral capsule (4 sources)Tetracycline-class DrugStart: 03-05-2025 End: 05-38-1342okad 1 capsule by mouth in the morningdoxycycline (Vibramycin) 100 MG capsule Indications: Pain in female genitalia on intercourse Take 1 capsule (100 mg) by mouth in the morning and 1 capsule (100 mg) before bedtime. Do all this for 14 days. 28 capsule 03/05/2025 03/19/2025 Activefamotidine 20 mg oral tablet (2 sources)Histamine-2 Receptor AntagonistStart: 39-63-8174wnsy 1 tablet by mouth once dailyPepcid 20 mg Tab 20 mg = 1 tab(s), Oral, Daily, # 14 tab(s), Refills(s) 0 Start Date: 05/06/22 Status: Orderedhydrocortisone acetate 25 mg rectal suppository (2 sources)CorticosteroidStart: 95-95-6010dmlmlsvrpqbvhz (ANUSOL-HC) 25 MG suppository Indications: Blood in stool Place 1 suppository rectally in the morning and 1 suppository in the evening. 24 suppository 1 02/06/2025 Active hydrocortisone acetate 0.0055 mg/mg / lidocaine hydrochloride 0.028 mg/mg rectal gel (2 sources)Antiarrhythmic, Corticosteroid, Amide Local AnestheticStart: 04-95-0647ckopwqkqo 800 mg oral tablet (2 sources)Nonsteroidal Anti-inflammatory DrugStart: 39-12-5190imgg 1 tablet by mouth every eight hours as needed for painibuprofen (ADVIL;MOTRIN) 800 MG tablet Take 1 tablet by mouth every 8 hours as needed for Pain 120 tablet 3 03/20/2018 Ricylq67 hr metFORMIN hydrochloride 500 mg extended release oral tablet (8 sources)BiguanideStart: 06-17-2025 End: 48-53-4488ymza 2 tablets by mouth every twenty-four hours at mealtime metFORMIN XR (Glucophage-XR) 500 MG 24 hr tablet Indications: Encounter for weight management Take 2 tablets (1,000 mg) by mouth in the evening. Take with meals Do not crush, chew, or split. 30 tablet 11 06/17/2025 ActiveStart: 05-21-2025 End: 58-44-2580mseq 1 tablet by mouth every twenty-four hours at mealtime metFORMIN XR (Glucophage-XR) 500 MG 24 hr tablet Indications: Encounter for weight management Take 1 tablet (500 mg) by mouth in the evening. Take with meals Do not crush, chew, or split. 30 tablet 11 05/21/2025 06/17/2025 Discontinued (Reorder)naloxone 0.4 mg in 10 mL sodium chloride syringe (1 source)Start: 89-30-5434AbslcHNMyiz, PRN, Opioid Reversal, Starting on Casandra 03/19/25 [...] mg oral tablet (4 sources)Nonsteroidal Anti-inflammatory DrugStart: 42-03-5535kqow 1 tablet by mouth twice daily as needed for painStart: 51-65-1439uebz 1 tablet by mouth twice dailynaproxen 500 mg Tab 500 mg = 1 tab(s), Oral, BID, Take one tab by mouth two times a day, # 14 tab(s), Refills(s) 0, Pharmacy: [facility]/pharmacy #[id number], 155, cm, 04/14/23 13:45:00 EDT, Height/Length Dosing,120, kg, 04/14/23 13:45:00 EDT, Weight Dosing Start Date: 04/14/23 Status: OrderedNo Name (No Known Home Meds) (1 source)Start: 45-75-0608Vi Name (No Known Home Meds) Active June 11, 2024 12:00amphentermine hydrochloride 37.5 mg oral tablet (3 sources)Sympathomimetic Amine AnorecticStart: 06-17-2025 End: 99-18-9447mvhh 1 tablet by mouth before mealtimephentermine (Adipex-P) 37.5 MG tablet Indications: Encounter for weight management Take 1 tablet (37.5 mg) by mouth in the morning. Take before meals. 30 tablet 06/17/2025 Activepramoxine hydrochloride 10 mg/ml rectal foam (2 sources)Start: 14-99-0656pbyctjDJER 20 mg oral tablet (2 sources)Start: 12-19-2023 End: 85-14-5291dbqn 2 tablets by mouth once dailypredniSONE 20 mg Tab 40 mg = 2 tab(s), Oral, Daily, X 5 day(s), # 10 tab(s), Refills(s) 0, Pharmacy: [facility]/pharmacy #[id number], 155, cm, 12/19/23 12:54:00 EDT, Height/Length Dosing, 127.3, kg, 12/19/23 12:54:00 EDT, Weight Dosing Start Date: 12/19/23 Stop Date: 12/24/23 Status: Orderedpsyllium 400 mg oral capsule (1 source)Start: 76-69-8159Ekflftgb Husk (Metamucil) 0.4 gram capsule (1 source)Start: 10-93-6785Llesdwnr Husk (Metamucil) 0.4 gram capsule Active 0.4 GM PO Daily February 28, 2025 12:00am50 ml sodium chloride 9 mg/ml injection (9 sources)Start: 03-76-9241GxcjmTKAhtm, at 5-250 mL/hr, PRN, if patient receiving [...] field of order., PACU onlyStart: 03-19-2025 End: 43-28-5268Comrmxod on Casandra 03/19/25 at 0955, For 1 [...] Line= 20 mL/lumen, PACU onlyStart: 05-18-2023 End: 75-25-3900durmnx chloride 0.9 % bolus 1,000 mLZofran ODT 4 mg Tab-Dis (1 source)Start: 27-17-7773ejiy 1 tablet by mouth every six hours as needed for nauseaZofran ODT 4 mg Tab-Dis 4 mg = 1 tab(s), Oral, q6hr, PRN Nausea/Vomiting, # 12 tab(s), Refills(s) 0, Pharmacy: [facility]/pharmacy #[id number], 155, cm, 11/23/24 3:07:00 EST, Height/Length Dosing, 121.8, kg, 11/23/24 3:07:00 EST, Weight Dosing Start Date: 11/23/24 Status: Ordered Completed/Discontinued Medications MedicationDrug Class(es)DatesSig (Normalized)Sig (Original)aluminum & magnesium hydroxide-simethicone (MAALOX) 30 mL, lidocaine viscous hcl (XYLOCAINE) 5 mL (GI COCKTAIL) (1 source)Start: 05-18-2023 End: 17-72-9405tpyuxfix & magnesium hydroxide-simethicone (MAALOX) 30 mL, lidocaine viscous hcl (XYLOCAINE) 5 mL (GI COCKTAIL)citalopram 20 mg oral tablet (9 sources)Serotonin Reuptake InhibitorStart: 10-21-2017 End: 50-53-3577suub 1 tablet by mouth once dailyCitalopram (Celexa) 20 mg Tablet Discontinued 20 MG PO Daily September 04, 2018 1:00am December 04, 2023 2:39pmetodolac 400 mg oral tablet (2 sources)Nonsteroidal Anti-inflammatory DrugStart: 05-18-2023 End: 31-50-6943vsvj 1 tablet by mouth twice dailyetodolac (LODINE) 400 MG tablet Take 1 tablet by mouth 2 times daily 14 tablet 0 05/18/2023 05/24/2023 Discontinued (LIST CLEANUP)famotidine (PEPCID) 20 mg in sodium chloride (PF) 0.9 % 10 mL injection (1 source)Start: 05-18-2023 End: 74-92-1710kwsyoftegb (PEPCID) 20 mg in sodium chloride (PF) 0.9 % 10 mL injectionferrous sulfate 325 mg oral tablet (2 sources)Start: 03-13-2018 End: 33-27-9360iyqq 1 tablet by mouth three times daily at mealtimeferrous sulfate (MARK-JADIEL) 325 (65 Fe) MG tablet Take 1 tablet by mouth 3 times daily (with meals)90 tablet 0 03/13/2018 05/24/2023 Discontinued (LIST CLEANUP) iopamidol (ISOVUE-300) 61 % injection 70 mL (1 source)Start: 05-18-2023 End: 63-32-5608gmiyjalue (ISOVUE-300) 61 % injection 70 mLiopamidol (ISOVUE-370) 76 % injection 18 mL (1 source)Start: 03-20-2025 End: mL, Other, IMG ONCE PRN, 1 dose, Starting on Sun03/20/25 at 0842, Until Sun03/20/25 at 0946, Otheriopamidol (ISOVUE-370) 76 % injection 75 mL (1 source)Start: 03-20-2025 End: 03-81-3795bcaw 1 dose intravenously once75 mL, IntraVENous, IMG ONCE PRN, 1 dose, Starting on Sun03/20/25 at 0842, Until Sun03/20/25 at 0946, Other1 ml ketorolac tromethamine 30 mg/ml cartridge (1 source)Nonsteroidal Anti-inflammatory Drug, Cyclooxygenase InhibitorStart: 05-18-2023 End: 78-28-6509rowzxmuhs (TORADOL) injection 30 mg1 ml morphine sulfate 4 mg/ml injection (1 source)Opioid AgonistStart: 05-18-2023 End: 58-95-1079wlffskxz sulfate (PF) injection 4 mg2 ml ondansetron 2 mg/ml injection (5 sources)Serotonin-3 Receptor AntagonistStart: 05-18-2023 End: 63-91-5597edlynznwtpa (ZOFRAN) injection 4 mgStart: 05-18-2023 End: 77-15-5679uavx 1 tablet by mouth three times daily as needed for nausea ondansetron (ZOFRAN-ODT) 4 MG disintegrating tablet Take 1 tablet by mouth 3 times daily as needed for Nausea or Vomiting 21 tablet 0 05/18/2023 05/24/2023 Discontinued (LIST CLEANUP)Start: 40-49-1575fqsc 1 tablet by mouth every eight hours as needed for nauseaZofran 4 mg Tab 4 mg = 1 tab(s), Oral, q8hr, PRN Nausea/Vomiting, # 12 tab(s), Refills(s) 0 Start Date: 05/06/22 Status: Ordered sertraline 25 mg oral tablet (6 sources)Serotonin Reuptake InhibitorStart: 12-04-2023 End: 84-49-0641pmyx 1 tablet by mouth once dailySertraline 25 mg tablet Discontinued 25 MG PO Daily December 04, 2023 1:00am June 11, 2024 9:44am Problems Active Problems Problem ClassificationProblemDateDocumented DateEpisodic/Chronic Administrative/social admission (6 sources)Patient encounter status; Translations: [Persons encountering health services in other specified circumstances]32-67-4676YzjjpnsvChgakop disorders (10 sources)Anxiety disorder, unspecified; Translations: [Generalized anxiety disorder]Onset: 477200-77-5757OcbiczdXwezsozjxa associated with dizziness or vertigo (4 sources)Dizziness and giddiness; Translations: [DIZZINESS AND GIDDINESS] Onset: 85-05-3755PuuawuwkUgmpszevbhumx and procreative management (5 sources)Encounter for sterilization; Translations: [ENCOUNTER FOR STERILIZATION]Onset: 63-37-2504CjupiijzLblmvdcdkcubtj and diverticulitis (5 sources)Dwdhwiimywwehw19-56-1708UpgwpxnQlemwk infertility (4 sources)Oligo-ovulation; 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]Onset: 829061-97-2529JainhhqEwxswyai; including migraine (5 sources)Dtaesebs53-81-5152CuqzxqxHbzrohxzivn (2 sources)Hemorrhoids; Translations: [Unspecified hemorrhoids]02-28-2025 EpisodicIntestinal infection (5 sources)Clostridium difficile -25-3191TajrjaqeXabstui on above: Problem added secondary to positive C-Diff lab result.Menstrual disorders (11 sources)Irregular menstruation, unspecified; Translations: [Oligomenorrhea] Onset: 88-41-8788GkdgkuoSopz disorders (14 sources)Depressive disorder; Translations: [Major depressive disorder] 64-65-5074DjnbhfkSdof disorders (1 source)Mood disorders; Translations: [DEPRESSION UNSPECIFIED]Onset: 26-94-7027Vwrjbq and vomiting (3 sources)Nausea and vomiting; Translations: [Nausea with vomiting, unspecified]Onset: 13-21-5544FagvbtgmAgcmz aftercare (2 sources)Post-discharge follow-up; Translations: [Encounter for follow-up examination after completed treatment for conditions other than malignant neoplasm]75-64-0180FsqcerzzYusdb complications of ; puerperium affecting management of mother (1 source)Obesity complicating childbirth; Translations: [OBESITY COMPLICATING CHILDBIRTH]Onset: 75-37-6133OitqeeeQfjzv complications of ; puerperium affecting management of mother (4 sources)Spinal and epidural anesthesia-induced headache during the puerperium; Translations: [SP EPID ANES-IND H/A DUR PUERPERIUM]Onset: 09-22-2022 EpisodicOther complications of (5 sources)Maternal care for excessive growth, third trimester, not applicable or unspecified; Translations: [MAT CARE EXCSS FTL GRTH 3RD TRI UNS] Onset: 11-81-0831XcnvvuqoXtovw female genital disorders (5 sources)Abnormal uterine bleeding; Translations: [Other specified abnormal uterine and vaginal bleeding]43-62-9012XaygtrgVxmae female genital disorders (2 sources)Pain in female genitalia on intercourse; Translations: [Unspecified dyspareunia]47-99-1188UnmssfvHazse female genital disorders (1 source)Pain in female pelvis; Translations: [Pelvic pain in female]07-28-2025 EpisodicOther gastrointestinal disorders (1 source)Diarrhea; Translations: [Diarrhea, unspecified]Onset: 11-23-2024 EpisodicOther nervous system disorders (5 sources)Loss of -19-4196XvpawhzpCyyve non-traumatic joint disorders (2 sources)Pain in left knee; Translations: [Pain in joint, lower leg]06-11-2024 EpisodicOther nutritional; endocrine; and metabolic disorders (4 sources)Morbid (severe) obesity due to excess calories; Translations: [Morbid obesity]Onset: 588120-97-9800IgkwfmkXbxpl nutritional; endocrine; and metabolic disorders (11 sources)Morbid obesity; Translations: [Morbid (severe) obesity due to excess calories]Onset: 056397-53-5613AiygqxeNdbcu nutritional; endocrine; and metabolic disorders (6 sources)Body mass index 40+ - severely obese; Translations: [Body mass index (BMI) 50.0-59.9, adult]15-66-1455ZnrjatzIqgub nutritional; endocrine; and metabolic disorders (3 sources)Body mass index (BMI) 50.0-59.9, adult; Translations: [Body Mass Index 50.0-59.9, adult]13-30-3476SsetagnJetkv nutritional; endocrine; and metabolic disorders (2 sources)Weight increased; Translations: [Abnormal weight gain]06-17-2025 EpisodicOther and delivery including normal (3 sources)Single live ; Translations: [ state, incidental]Onset: 55-30-5194KelegajoGaaui upper respiratory disease (1 source)Nasal congestion; Translations: [Nasal congestion]Onset: 12-19-2023 EpisodicOther upper respiratory disease (3 sources)Congestion of nasal uhxrh04-49-4068BldbauyfIrlqq upper respiratory infections (9 sources)Acute upper respiratory infection; Translations: [Acute pharyngitis] Onset: 188245-26-5084KeaugwfoZuqlfa media and related conditions (4 sources)Otitis media; Translations: [Otitis media, unspecified, right ear] Onset: 50-45-3808KqfqseqySfxerfo cyst (3 sources)Cyst of right ovary; Translations: [Unspecified ovarian cyst, right side]41-49-8172IaofevdqSmutrsas (3 sources)Maternal care for low transverse scar from previous delivery; Translations: [MAT CARE LW TRANS SCAR PREV C/S DEL]Onset: 09-18-2022 EpisodicResidual codes; unclassified (1 source)39 weeks gestation of ; Translations: [39 WEEKS GESTATION OF ]Onset: 15-28-1951ZagadliiLlni and subcutaneous tissue infections (5 sources)Pilonidal wxin02-21-2138PtyhwxppQlgkbpwfdhp; intervertebral disc disorders; other back problems (12 sources)Low back pain; Translations: [Lumbar radiculopathy]12-01-2019 EpisodicSprains and strains (2 sources)Sprain of wrist; Translations: [Unspecified sprain of unspecified wrist, initial encounter]Onset: 44-26-6590BcruuqfoBkuvbbz (1 source)Syncope and collapse; Translations: [Syncope and collapse]Onset: 20-58-8094JggtsqjkJjcuvkiqitrl (1 source)CONTACT W/AND (SUSP) EXPOS COVID-19; Translations: [CONTACT W/AND (SUSP) EXPOS COVID-19]Onset: 59-75-1826Xmprarz tract infections (1 source)Urinary tract infectious disease; Translations: [Urinary tract infection, site not specified]Onset: 17-84-3893Ctrgttpm Past or Other Problems Problem ClassificationProblemDateDocumented DateEpisodic/ChronicAbdominal pain (8 sources)Epigastric pain; Translations: [Epigastric pain]Onset: 05-06-2022 EpisodicBiliary tract disease (4 sources)Cholelithiasis without obstruction; Translations: [Calculus of gallbladder without cholecystitis without obstruction]Onset: 63-36-4302Ukhdpshl Gastrointestinal hemorrhage (9 sources)Rectal hemorrhage; Translations: [Hemorrhage of anus and rectum] Onset: 511892-39-3891WmcjooukVfmbswaevslsf and screening for infectious disease (13 sources)Contact with and (suspected) exposure to infections with a predominantly sexual mode of transmission; Translations: [Exposure to sexually transmissible disorder]Onset: 09-02-2022 Resolved: 644292-78-1833RzkkrxesNramv circulatory disease (4 sources)Borderline blood pressure; Translations: [Elevated blood-pressure reading, without diagnosis of hypertension]Onset: 156165-45-8444Oqilquvq Other complications of (4 sources)Decreased movements, third trimester, not applicable or unspecified; Translations: [DECR MOVEMENTS 3RD TRI NA/UNS]Onset: 93-26-3926OyzoxzynYokgu complications of (1 source)Other specified related conditions, third trimester; Translations: [OTH SPEC PREG RELATEDCOND 3RD TRI]Onset: 68-21-4430DtffovkoGlyxq complications of (4 sources)Vomiting of , unspecified; Translations: [VOMITING OF UNSPECIFIED]Onset: 29-78-7456LgaobwbuZxjdt female genital disorders (4 sources)Other specified noninflammatory disorders of vagina; Translations: [OTH SPEC NONINFLAMMATORY D/O VAGINA]Onset: 56-05-0159AejwulysUgpgk screening for suspected conditions (not mental disorders or infectious disease) (13 sources)Encounter for other screening follow-up; Translations: [Encounter for screening for diabetes mellitus]Onset: 54-11-3896Qrsofgmh Polyhydramnios and other problems of amniotic cavity (4 sources)Other specified disorders of amniotic fluid and membranes, second trimester, not applicable or unspecified; Translations: [OTH D/O AMNIO FL MEMB 2ND TRI UNS]Onset: 72-25-1227QstckqdzGxhpswhp codes; unclassified (1 source)34 weeks gestation of ; Translations: [34 WEEKS GESTATION OF ]Onset: 07-57-1463IimckxkvKfyrtbsd codes; unclassified (4 sources)Procedure and treatment not carried out for other reasons; Translations: [PROC AND TX NOT CARRIED OUT OTH REASONS]Onset: 65-03-1850Vgobdtcg Residual codes; unclassified (1 source)33 weeks gestation of ; Translations: [33 WEEKS GESTATION OF ]Onset: 38-39-6370SglxplkjTmlpluoi codes; unclassified (1 source)25 weeks gestation of ; Translations: [25 WEEKS GESTATION OF ]Onset: 27-82-0048HczsbwuaRufaxrkp codes; unclassified (1 source)14 weeks gestation of ; Translations: [14 WEEKS GESTATION OF ]Onset: 05-62-3613NhqayherYvfvetsg codes; unclassified (2 sources)Pain; Translations: [Pain, unspecified]Onset: 05-28-2023 Resolved: 613701-99-3012QivobjhuJtzuzrbym and history of mental health and substance abuse codes (5 sources)Personal history of nicotine dependence; Translations: [Tobacco use and exposure - finding]Onset: 842452-67-3186AcmsfhzpAuugqkmhgbnx (2 sources)Patient encounter yagruf33-26-2458 Results Test NameValueInterpretationReference RangeFacilityHCG ( test) Ql (U)on 74-78-2092Zbevenuefrwghh and review of laboratory resultsNoSt. Mary Rehabilitation Hospital Preg Test, UrNegativeNegativePsychiatric hospitalLon 07-28-2025L Specimen: [id number] Received: 07/29/25 Status: SRINIVASAN Levy Num: [id number] Spec Type: Surgical Subm Dr: Mark Rosales Tissues: A Endometrium - Biopsy (ENDOMETRIUM BX) Procedures: HE/2, Gross/Micro L4 Age/ Patient Sex Location Account Attending Physician Prudencio Jaramillo 30/F LABELL [id number] Mark Rosales SPEC NUM: [id number] RECD: 07/29/25 STATUS: SRINIVASAN JEFFREY NUM: [id number] BALA: 07/28/25 [facility] DR: Mark Rosales ENTERED: 07/29/[address]: Loree,Lab SPEC TYPE: Surgical DEPT: [facility] ENTERED BY: [id number] RECV BY: [id number] ORDERED: HE/2, Gross/Micro L4 ORDERED: HE/2, Gross/Micro [...] submitted in a single cassette. (1, ns, [id number] A) Microscopic Description Microscopic examination is performed. Specimen: [id number] Received: 07/29/25 Status: SRINIVASAN Levy Num: [id number] Spec Type: Surgical Subm Dr: Mark Rosales Tissues: A Endometrium - Biopsy (ENDOMETRIUM BX) Procedures: Raegan EDMONDSON/Kali L4 Patient: Prudencio Jaramillo [id number] (Continued) Specimen: [id number] Received: 07/29/25 (Continued) Signed (signature on file) Sadi Johnson MD 07/30/25 1154 Specimen: [id number] Received: 07/29/25 Status: SRINIVASAN Levy Num: [id number] Spec Type: Surgical Subm Dr: Mark Rosales Tissues: A Endometrium - Biopsy (ENDOMETRIUM BX) Procedures: DEBO Gross/Micro L4 Patient: Hunter Jaramilloiley Cindi [id number] (Continued) Specimen: [id number] Received: 07/29/25 (Continued) CPT Codes 74588 Specimen: [id number] Received: 07/29/25 Status: SRINIVASAN Levy Num: [id number] Spec Type: Surgical Subm Dr: Mark Rosales Tissues: A Endometrium - Biopsy (ENDOMETRIUM BX) Procedures: Raegan/Micro L4 Patient: Prudencio Jaramillo [id number] (Continued) Signed (signature on file) Sadi Johnson MD 07/30/25 [facility]/ TVon 39-76-7587XE PELVIC COMPLETE W/ TVFINDINGS: Uterus 9.4 x [...] LMP recorded.CT ABDOMEN PELVIS W IV CONTRASTon 78-79-6130IC ABDOMEN PELVIS W IV CONTRASTEXAMINATION: CT OF [...] Signed by: Linwood Alas MD 03/23/25 Final resultUC[facility] HospitalColonoscopy [facility]on [facility]25 [facility] Patient: PRUDENCIO JARAMILLO : 1995 Account: [id number] Sex at : Female Age: 29 Years [...] provided to the patient. Procedure Code(s): - 21629, Colonoscopy, flexible; with biopsy, single or multiple Diagnosis Code(s): - K92.1, Melena (includes Hematochezia) - K64.8, Other hemorrhoids CPT(R) - 2023 copyright [employer]. All Rights Reserved. The CPT codes, CCI edits and ICD codes generated are intended as suggestions and were generated based on input data. These codes are preliminary and upon aed trainer review may be revised to meet current compliance and payer requirements. The provider is responsible for the final determination of appropriate codes, and modifiers. Scope Withdrawal Time: 00:09:08 JANINE FUNEZ This document has been electronically signed. Note Initiated:03/19/2025 Note Completed:03/19/2025 11:07 Janine Khan MD - 03/19/2025 [facility] Patient: PRUDENCIO JARAMILLO : 1995 Account: [id number] Sex at : Female Age: 29 Years [...] provided to the patient. Procedure Code(s): - 56077, Colonoscopy, flexible; with biopsy, single or multiple Diagnosis Code(s): - K92.1, Melena (includes Hematochezia) - K64.8, Other hemorrhoids CPT(R) - 2023 copyright [employer]. All Rights Reserved. The CPT codes, CCI edits and ICD codes generated are intended as suggestions and were generated based on input data. These codes are preliminary and upon aed trainer review may be revised to meet current compliance and payer requirements. The provider is responsible for the final determination of appropriate codes, and modifiers. Scope Withdrawal Time: 00:09:08 JANINE FUNEZ This document has been electronically signed. Note Initiated:03/19/2025 Note Completed:03/19/2025 11:07 AM [facility] [facility] [address] [place], [place] [id number] FINAL SURGICAL PATHOLOGY REPORT Patient Name: PRUDENCIO JARAMILLO Accession No: [id number] Age Sex: 1995 Location: [facility] Account No: [id number] Collected: 03/19/2025 Med Rec No: [id number] Received: 03/20/2025 Attend Phys: JANINE FUNEZ Completed: [...] in toto in one cassette. JOSE/SHAYE CPT: 29703 X1 12877 X1 J DENYS DAVIS M.D. 03/24/2025 Electronically signed out by Page 1 of 1Invalid Interpretation [facility] PorterComment on above:Performed By: #### WALLY #### [facility] [address] [facility] [address] Hunlz , POCTon 87-70-8685Vhcq HCG ( test) Ql (U) NegativeNegativeBon [facility] WebvantaLot [id number] [facility] Negative QC Pass/FailPassBon [facility] HospitalBehavio [facility] HospitalPositive QC Pass/FailPassBon [facility] HealthComprehensive Metabolic Panelon 73-76-1833Phykbub [Mass/Vol]4.0 g/dLNormal3.5-4.6MAnimas Surgical Hospital Comment on above:Performed By: #### CMP #### [facility] [address] [place] [address] ZZS [Catalytic activity/Vol]94 U/CWvuidh77-691VeumjKeefe Memorial HospitalComment on above:Performed By: #### CMP #### [facility] [address] [place] [address] BYT [Catalytic activity/Vol]20 U/LNormal0-33[facility] HospitalComment on above:Performed By: #### CMP #### [facility] [address] [place] [address] Gbluf gap [Moles/Vol]11 mmol/LNormal9-15[facility] HospitalComment on above:Performed By: #### CMP #### [facility] [address] [place] [address] VHC [Catalytic activity/Vol]14 U/LNormal0-35[facility] HospitalComment on above:Performed By: #### CMP #### [facility] [address] [place] [address] Nfiknxckm [Mass/Vol]mg/dLNormal0.2-0.7[facility] Comment on above:Performed By: #### CMP #### [facility] [address] [place] [address] Tderaws [Mass/Vol]9.4 mg/dLNormal8.5-9.9[facility] HospitalComment on above:Performed By: #### CMP #### [facility] [address] [place] [address] Vywaddgh [Moles/Vol]105 mmol/QMzwfth96-689JiopoKeefe Memorial HospitalComment on above:Performed By: #### CMP #### [facility] [address] [place] [address] JD9 [Moles/Vol]24 mmol/KVdflfo15-79LcjftKeefe Memorial Hospital Comment on above:Performed By: #### CMP #### [facility] [address] [place] [address] Nvhvsirpcf [Mass/Vol]0.51 mg/dLNormal0.50-0.90[facility] HospitalComment on above:Performed By: #### CMP #### [facility] [address] [place] [address] BTW>90.0Normal>60[facility] HospitalComment on above: Result Comment: Pediatric calculator [...] renal tubular secretion.Performed By: #### CMP #### [facility] [address] [place] [address] Oextumxk (S) [Mass/Vol]3.6 g/dLCritically high2.3-3.5[facility] HospitalComment on above:Performed By: #### CMP #### [facility] [address] [place] [address] Zcpitbh [Mass/Vol]83 mg/lIKohxch79-48SburbAnimas Surgical Hospital Comment on above:Performed By: #### CMP #### [facility] [address] [place] [address] Kkpjzhzfl [Moles/Vol]3.9 mmol/LNormal3.4-4.9[facility] HospitalComment on above:Performed By: #### CMP #### [facility] [address] [place] [address] Cutxaxm [Mass/Vol]7.6 g/dLNormal6.3-8.0[facility] Comment on above:Performed By: #### CMP #### [facility] [address] [place] [address] Fwgadg [Moles/Vol]140 mmol/GQwefrf797-976ZltjsKeefe Memorial HospitalComment on above:Performed By: #### CMP #### [facility] [address] [place] [address] Lsbn nitrogen [Mass/Vol]10 mg/dLNormal6-20[facility] HospitalComment on above:Performed By: #### CMP #### [facility] [address] [place] [address] VTS,APTIMA HPV,AGE GDLNon 65-55-0039YNJ GDLN ACOG TESTINGNote.NOMS HealthcareComment on above:TESTS RESULT FLAG UNITS REF RANGE LAB Clinician Provided Cytology Information Source.............Cervix;Endocervix No. of containers..01 ThinPrep Vial Age Algo ACOG Lena... FLAG LEGEND: L-Low Normal,H-High Normal,LL-Alert Low,HH-Alert High <-Panic Low,>-Panic High,A-Abnormal,AA-Critical Abnormal Performed at: 01 =[address] [address] Sol Villalobos MD, HPV APTIMANegativeNegativeNOMS HealthcareComment on above:This nucleic acid amplification test detects fourteen high- risk HPV types (16,18,31,33,35,39,45,51,52,56,58,59,66,68) without differentiation. Performed at: =[address] [id number] Property Underwriter: Sol Villalobos MD, Phone: [phone] Performed at: [address] [id number] Property Underwriter: Sol Villalobos MD, Phone: [phone] IGP, APTIMA HPV, RFX 16/18,45Note.[facility] HealthcareComment on above:TESTS RESULT FLAG UNITS REF RANGE LAB DIAGNOSIS: 02 NEGATIVE FOR INTRAEPITHELIAL LESION OR MALIGNANCY. PREDOMINANCE OF COCCOBACILLI CONSISTENT WITH SHIFT IN VAGINAL ALIVIA IS PRESENT. Specimen adequacy: 02 Satisfactory for evaluation. Endocervical and/or squamous metaplastic cells (endocervical component) are present. Performed by: 02 Gely Ochoa, Farm Supervisor ([facility]) . 02 Note: Note 02 The Pap [...] High,A-Abnormal,AA-Critical Abnormal Performed at: 02 [facility] [address] [place] [address] Sol Villalobos MD, BRUSH-SPATULA CERVIX ENDOCERVIX CLINISYNCNOMS HealthcareRECURRENT VAGINITIS (HTRX)on 78-87-8409FNBOCGDAV VAGINAE 18.38AbnormalNOMS HealthcareATOPOBIUM VAGINAEDetectedAbnormalNOMS HealthcareBVAB 2,3 (BACTERIAL VAGINOSIS ASSOCIATED BACTERIA 2, 3); MOBILUNCUS DSY6UQFW HealthcareBVAB 2,3 (BACTERIAL VAGINOSIS ASSOCIATED BACTERIA 2, 3); MOBILUNCUS SPPNot detectedNOMS HealthcareCANDIDA ALBICANS, PARAPSILOSIS, WQVWOHKYCZ6EQJV HealthcareCANDIDA ALBICANS, PARAPSILOSIS, TROPICALISNot detectedNOMS Healthcare DEUCE MVLFZRGO6NVSP HealthcareCANDIDA GLABRATANot detectedNOMS Healthcare DEUCE RNDPKR3LNQT HealthcareCANDIDA KRUSEINot detectedNOMS HealthcareCHLAMYDIA XNLNTDUECSR7GSWL HealthcareCHLAMYDIA TRACHOMATISNot detectedNOMS Healthcare ERMB, C; MEFA15.915AbnormalNOMS HealthcareERMB, C; MEFADetectedAbnormalNOMS HealthcareGARDNERELLA AEGKXHOPC56.576AbnormalNOMS HealthcareGARDNERELLA VAGINALISDetectedAbnormalNOMS HealthcareInterpretation and review of laboratory resultsAbnormalNOMS HealthcareMEGASPHAERA (TYPES 1, 2)12.413AbnormalNOMS HealthcareMEGASPHAERA (TYPES 1, 2)DetectedAbnormalNOMS HealthcareMYCOPLASMA CLBSZDIPGP2PKEY HealthcareMYCOPLASMA GENITALIUMNot detectedNOMS Healthcare NEISSERIA CHHWEAKQJWT3RWHA HealthcareNEISSERIA GONORRHOEAENot detectedNOMS HealthcareTET B, TET M18.836AbnormalNOMS HealthcareTET B, TET MDetectedAbnormal NOMS HealthcareTRICHOMONAS NDHMISRCE2HSLL HealthcareTRICHOMONAS VAGINALISNot detectedNOMS HealthcareNOMS HealthcareAlanine aminotransferase [Enzymatic activity/volume] in Serum or PlasmaOrdered By: Kentrell King on 17-56-7156WTN [Catalytic activity/Vol]Alanine aminotransferase [Enzymatic activity/volume] in Serum or Plasma7-[facility] HospitalAlbumin [Mass/volume] in Serum or Plasma by Bromocresol green (BCG) dye binding methoOrdered By: Kentrell King on 42-94-2644Crovouw BCG dye [Mass/Vol]Albumin [Mass/volume] in Serum or Plasma by Bromocresol green (BCG) dye binding metho3.5-5.7FKettering Health SpringfieldAlkaline phosphatase [Enzymatic activity/volume] in Serum or PlasmaOrdered By: Kentrell King on 88-87-8596PQD [Catalytic activity/Vol] Alkaline phosphatase [Enzymatic activity/volume] in Serum or Ihyjhf90-520 [facility] HospitalAppearance of UrineOrdered By: Kentrell King on 19-75-7345Asaviwpbvs (U)Urine appearanceAbnormalCAultman Orrville HospitalAspartate aminotransferase [Enzymatic activity/volume] in Serum or PlasmaOrdered By: Kentrell King on 35-46-1720WCU [Catalytic activity/Vol] Aspartate aminotransferase [Enzymatic activity/volume] in Serum or Nbeyod82-88 [facility] HospitalBacteria [Presence] in Urine by Automated Ordered By: Kentrell King on 73-55-8413Adjcfxed Auto Ql (U)Bacteria [Presence] in Urine by AutomatedNone St. Francis HospitalBasic Metabolic Panelon 72-24-7031Wfgek gap [Moles/Vol]9.7 mmol/LNormal6.0-15.0The [facility] Health Physician GroupComment on above:Performed By: #### BMP, CBC, LIPASE, HEPATIC #### [facility] [address] [id number] USACalcium [Mass/Vol]9.5 mg/dLNormal8.6-10.3The [facility] Health Physician GroupComment on above:Performed By: #### BMP, CBC, LIPASE, HEPATIC #### [facility] [address] [place] [address] USAChloride [Moles/Vol]108 mmol/VFamo57-850Ihf [facility] Health Physician GroupComment on above:Performed By: #### BMP, CBC, LIPASE, HEPATIC #### [facility] [address] [address] USACO2 [Moles/Vol]24.4 mmol/PApmjtq36.0-31.0The [facility] Health Physician GroupComment on above:Performed By: #### BMP, CBC, LIPASE, HEPATIC #### [facility] [address] [address] USACreatinine [Mass/Vol]0.54 mg/dLLow0.60-1.20The [facility] Health Physician GroupComment on above:Performed By: #### BMP, CBC, LIPASE, HEPATIC #### [facility] [address] [place] [address] USACreatinine Clr Calc Ammtkxvc629.30NormalThe [facility]cu Health Physician GroupComment on above:Performed By: #### BMP, CBC, LIPASE, HEPATIC #### [facility] [address] [place] [address] USAGFR/1.73 sq M.predicted MDRD (S/P/Bld) [Vol rate/Area] mL/min/{1.73_m2}NormalThe [facility]cu Health Physician GroupComment on above:Performed By: #### BMP, CBC, LIPASE, HEPATIC #### [facility] [address] [place] [address] USAGlucose [Mass/Vol]86 mg/aEBbtcgn07-902Voe [facility] Health Physician GroupComment on above:Result Comment: Random Glucose Reference Range is dependent on time and content of last meal. Glucose of more than 200 mg/dL in a nonstressed, ambulatory subject supports the diagnosis of Diabetes Mellitus. ADA recommended reference rangePerformed By: #### BMP, CBC, LIPASE, HEPATIC #### [facility] [address] [place] [address] USAPotassium [Moles/Vol]4.1 mmol/LNormal3.5-5.1The [facility] Health Physician GroupComment on above:Performed By: #### BMP, CBC, LIPASE, HEPATIC #### [facility] [address] [place] [address] USASodium [Moles/Vol]138 mmol/HVpzomx078-967Nfb [facility] Health Physician GroupComment on above:Performed By: #### BMP, CBC, LIPASE, HEPATIC #### [facility] [address] [place] [address] USAUrea nitrogen [Mass/Vol]12 mg/dLNormal7-25The [facility] Health Physician GroupComment on above:Performed By: #### BMP, CBC, LIPASE, HEPATIC #### [facility] [address] [place] [address] USABasophils Auto (Bld) [#/Vol]Ordered By: Kentrell King on 22-62-8203Mxsxbhtje (Bld) [#/Vol]Automated basophil count0.0-0.2FKettering Health SpringfieldBasophils/100 WBC Auto (Bld)Ordered By: Kentrell King on 56-76-4969Zobumteld/100 WBC (Bld)Automated basophil %.[facility] HospitalBilirubin Test strip Ql (U)Ordered By: Kentrell King on 46-10-3983Qnauwuord Ql (U)Bilirubin.total [Presence] in Urine by Test strip NegativePromedica Toledo HospitalBilirubin.direct [Mass/volume] in Serum or PlasmaOrdered By: Kentrell King on 70-41-5755Avuwlvyjt.direct [Mass/Vol] Bilirubin.direct [Mass/volume] in Serum or Plasma0.03-0.18FKettering Health SpringfieldBilirubin.total [Mass/volume] in Serum or PlasmaOrdered By: Kentrell King on 22-93-6340Oqmjpvrqi [Mass/Vol]Bilirubin.total [Mass/volume] in Serum or Plasma0.3-1.0[facility] HospitalCalcium [Mass/volume] in Serum or PlasmaOrdered By: Kentrell King on 79-27-4069Dtgekcu [Mass/Vol] Calcium [Mass/volume] in Serum or Plasma8.6-10.3FKettering Health SpringfieldCarbon dioxide, total [Moles/volume] in Serum or PlasmaOrdered By: Kentrell King on 10-15-9833ET5 [Moles/Vol]Carbon dioxide, total [Moles/volume] in Serum or Huqbbs43.0-31.0[facility]edo HospitalChloride [Moles/volume] in Serum or PlasmaOrdered By: Kentrell King on 47-84-0341Ficrsnyz [Moles/Vol]Chloride [Moles/volume] in Serum or VtauabRxhz87-657AytqcybnuPromedica Toledo HospitalColor Auto (U)Ordered By: Kentrell King on 02-28-2025 Color (U)Color of Urine by AutoYellowPromedica Toledo HospitalComplete Blood Count Auto Diffon 88-01-7527Eqwrqpcjl (Bld) [#/Vol]0.1 10*3/uLNormal 0.0-0.2The [facility]cu Health Physician GroupComment on above:Result Comment: PERFORMED BY: [place] [address] PATHOLOGIST GEOSPATIAL APPLICATIONS DEVELOPER KATLIN JERONIMO M.D.Performed By: #### BMP, CBC, LIPASE, HEPATIC #### [place] [address] USABasophils/100 WBC (Bld)0.8 %Normal.The Ecu Health Physician GroupComment on above:Performed By: #### BMP, CBC, LIPASE, HEPATIC #### [place] [address] USAEosinophils (Bld) [#/Vol]0.2 10*3/uLNormal0.0-0.45The [facility] Health Physician GroupComment on above:Performed By: #### BMP, CBC, LIPASE, HEPATIC #### [place] [address] USAEosinophils/100 WBC (Bld)2.4 %Normal.The [facility] Health Physician GroupComment on above:Performed By: #### BMP, CBC, LIPASE, HEPATIC #### [place] [address] USAErythrocyte distribution width (RBC) [Ratio]14.0 %Normal 11.9-15.3The Ecu Health Physician GroupComment on above:Performed By: #### BMP, CBC, LIPASE, HEPATIC #### [place] [address] USAHematocrit (Bld) [Volume fraction]42.6 %Pvyfgj77.0-46.4The [facility] Health Physician GroupComment on above:Performed By: #### BMP, CBC, LIPASE, HEPATIC #### [place] [address] USAHemoglobin (Bld) [Mass/Vol]14.3 g/mQPbgcsp77.8-15.4The [facility] Health Physician GroupComment on above:Performed By: #### BMP, CBC, LIPASE, HEPATIC #### [place] [address] USALymphocytes (Bld) [#/Vol]1.7 10*3/uLNormal1.00-4.8The [facility] Health Physician GroupComment on above:Performed By: #### BMP, CBC, LIPASE, HEPATIC #### [place] [address] USALymphocytes/100 WBC (Bld)24.8 %Normal.The [facility] Health Physician GroupComment on above:Performed By: #### BMP, CBC, LIPASE, HEPATIC #### [address] (RBC) [Entitic mass]27.3 ohOkwqzo78.7-34.3The [facility] Health Physician GroupComment on above:Performed By: #### BMP, CBC, LIPASE, HEPATIC #### [address] (RBC) [Entitic vol]81.2 oPXewzky17-827Mes [facility] Health Physician GroupComment on above:Performed By: #### BMP, CBC, LIPASE, HEPATIC #### [place] [address] USAMean Corpuscular HGB Conc33.6 g/cLEksxyc63.0-35.0The [facility] Health Physician GroupComment on above:Performed By: #### BMP, CBC, LIPASE, HEPATIC #### [place] [address] USAMonocytes (Bld) [#/Vol]0.6 10*3/uLNormal0.0-0.8The [facility] Health Physician GroupComment on above:Performed By: #### BMP, CBC, LIPASE, HEPATIC #### [place] [address] USAMonocytes/100 WBC (Bld)24.94 %High0.00-20.00The Ecu Health Physician GroupComment on above:Result Comment: For adults in ED, MDW > 20.0 may be associated with a higher risk of sepsis during the first 12 hrs of hospital admissionPerformed By: #### BMP, CBC, LIPASE, HEPATIC #### [place] [address] USAMonocytes/100 WBC (Bld)8.5 %Normal.The [facility] Health Physician GroupComment on above:Performed By: #### BMP, CBC, LIPASE, HEPATIC #### [facility] [address] [place] [address] USANeutrophils (Bld) [#/Vol]4.3 10*3/uLNormal1.8-7.7The [facility] Health Physician GroupComment on above:Performed By: #### BMP, CBC, LIPASE, HEPATIC #### [facility] [address] [place] [address] USANeutrophils/100 WBC (Bld)63.5 %Normal.The [facility] Health Physician GroupComment on above:Performed By: #### BMP, CBC, LIPASE, HEPATIC #### [facility] [address] [place] [address] USANRBC%0.0 /100{WBC}Normal0-0.5The [facility] Comment on above:Performed By: #### BMP, CBC, LIPASE, HEPATIC #### [facility] [address] [place] [address] USAPlatelet mean volume (Bld) [Entitic vol]7.7 fLNormal 6.3-10.7The [facility] Health Physician GroupComment on above:Performed By: #### BMP, CBC, LIPASE, HEPATIC #### [place] [address] USAPlatelets (Bld) [#/Vol]262 10*3/sTEfgupi454-986Ceu [facility] Health Physician GroupComment on above:Performed By: #### BMP, CBC, LIPASE, HEPATIC #### [facility] [address] [place] [address] USARBC (Bld) [#/Vol]5.25 10*6/uLHigh3.60-5.00The [facility] Health Physician GroupComment on above:Performed By: #### BMP, CBC, LIPASE, HEPATIC #### [place] [address] USAWBC (Bld) [#/Vol]6.8 10*3/uLNormal3.8-11.6The [facility] Health Physician GroupComment on above:Performed By: #### BMP, CBC, LIPASE, HEPATIC #### [facility] [address] [id number] USACreatinine [Mass/volume] in Serum or PlasmaOrdered By: Kentrell King on 69-70-1627Igtoqpesec [Mass/Vol]Creatinine [Mass/volume] in Serum or PlasmaLow0.60-1.20[facility] Toledo HospitalDipstick and Microscopicon 72-00-9937Ektawffiqc (U)CloudyCritically abnormalClearThe Ecu Health Physician GroupComment on above:Order Comment: Name Collection Type:: Clean-Voided MidstreamPerformed By: #### UHCG, ADDONUAPLUS, CUU #### [facility] [address] [place] [address] USABacteria,UrineRareNormalNone SeenThe Ecu Health Physician GroupComment on above:Order Comment: Name Collection Type:: Clean-Voided MidstreamPerformed By: #### UHCG, ADDONUAPLUS, CUU #### [facility] [address] [place] [address] USABilirubin,UrineNegativeNormalNegativeTgh Crystal River Physician GroupComment on above:Order Comment: Name Collection Type:: Clean- Voided MidstreamPerformed By: #### UHCG, ADDONUAPLUS, CUU #### [facility] [address] [place], [place] [address] USAColor (U)YellowNormalYellowThe [facility] Comment on above:Order Comment: Name Collection Type:: Clean-Voided Midstream Performed By: #### UHCG, ADDONUAPLUS, CUU #### [facility] [address] [place], [place] [phone] USAGlucose Ql (U)NormalNormalNormPremier Health [facility] Northe [facility] Health Physician GroupComment on above:Order Comment: Name Collection Type:: Clean-Voided MidstreamPerformed By: #### UHCG, ADDONUAPLUS, CUU #### [place] [address] USAHyaline Casts,UrineNoneNormal0-8The [facility] Health Physician GroupComment on above:Order Comment: Name Collection Type:: Clean-Voided MidstreamPerformed By: #### UHCG, ADDONUAPLUS, CUU #### [place] [address] USAKetones Ql (U)NegativeNormalNegativeTgh [facility] River Physician GroupComment on above:Order Comment: Name Collection Type:: Clean- Voided MidstreamPerformed By: #### UHCG, ADDONUAPLUS, CUU #### [place] [address] USALeukocyte esterase Test strip Ql (U)2+HighNegativeThe Ecu Health Physician GroupComment on above:Order Comment: Name Collection Type:: Clean-Voided MidstreamPerformed By: #### UHCG, ADDONUAPLUS, CUU #### [place] [address] USAMucus,Urine3+Critically abnormalThe Ecu Health Physician GroupComment on above:Order Comment: Name Collection Type:: Clean-Voided MidstreamPerformed By: #### UHCG, ADDONUAPLUS, CUU #### [place] [address] USANitrite,UrineNegativeNormalNegativeThe [facility] Health Physician GroupComment on above:Order Comment: Name Collection Type:: Clean-Voided MidstreamPerformed By: #### UHCG, ADDONUAPLUS, CUU #### [place] [address] USAOccult Blood,UrineTraceHighNegativeThe Ecu Health Physician GroupComment on above:Order Comment: Name Collection Type:: Clean-Voided MidstreamPerformed By: #### UHCG, ADDONUAPLUS, CUU #### [place] [address] USApH (U)5.5 [pH]Normal5.0-9.0The [facility] Comment on above:Order Comment: Name Collection Type:: Clean-Voided Midstream Performed By: #### UHCG, ADDONUAPLUS, CUU #### [facility] [address] [place] [address] USAProtein,UrineTraceHighNegativeThe Ecu Health Physician GroupComment on above:Order Comment: Name Collection Type:: Clean-Voided MidstreamPerformed By: #### UHCG, ADDONUAPLUS, CUU #### [place] [address] USARBC,Fcarj4-4Cfesww4-9Gwk [facility] Physician GroupComment on above:Order Comment: Name Collection Type:: Clean-Voided MidstreamPerformed By: #### UHCG, ADDONUAPLUS, CUU #### [place] [address] USASpecificy [place],Urine1.510Ffwc1.001-1.030The [facility] Health Physician GroupComment on above:Order Comment: Name Collection Type:: Clean- Voided MidstreamPerformed By: #### UHCG, ADDONUAPLUS, CUU #### [place] [address] USASquamous Epithelial Cell,Rdezh07-29Dpxy2-6Sqc [facility] Health Physician GroupComment on above:Order Comment: Name Collection Type:: Clean- Voided MidstreamPerformed By: #### UHCG, ADDONUAPLUS, CUU #### [place] [address] USAUrobilinogen,UrineNormalNormalNormalThe E[facility] Health Physician GroupComment on above:Order Comment: Name Collection Type:: Clean- Voided MidstreamPerformed By: #### UHCG, ADDONUAPLUS, CUU #### [place] [id number] USAWBC,Lgedp71-24Qgrb6-3Wxf [facility] Health Physician GroupComment on above:Order Comment: Name Collection Type:: Clean-Voided MidstreamPerformed By: #### UHCG, ADDONUAPLUS, CUU #### [place] [address] USAEosinophils Auto (Bld) [#/Vol]Ordered By: Kentrell King on 58-68-1710Slohnefzcjw (Bld) [#/Vol]Automated eosinophil count0.0-0.45 [facility] HospitalEosinophils/100 WBC Auto (Bld)Ordered By: Kentrell King on 27-94-9892Uoosartbvbw/100 WBC (Bld)Automated eosinophil %. [facility] HospitalEpithelial cells.squamous [#/area] in Urine sediment by Automated countOrdered By: Kentrell King on 60-82-2628Byqzxhkvcg cells.squamous Auto (Urine sed) [#/Area]Epithelial cells.squamous [#/area] in Urine sediment by Automated countHigh0-2FKettering Health Springfield Erythrocyte distribution width Auto (RBC) [Ratio]Ordered By: Kentrell King on 59-94-8221Gcrknpbgewu distribution width (RBC) [Ratio]Erythrocyte distribution width [Ratio] by Automated count11.9-15.3FK[facility]tering Health Springfield Erythrocytes [#/area] in Urine sediment by Automated countOrdered By: Kentrell King on 90-86-2606LTC Auto (Urine sed) [#/Area]Erythrocytes [#/area] in Urine sediment by Automated count0-4FKettering Health SpringfieldGlobulin Calc (S) [Mass/Vol]Ordered By: Kentrell King on 95-54-5930Ujtpwpxf (S) [Mass/Vol]Serum globulin measurement by calculation (mass/volume)[facility] HospitalGlucose [Mass/volume] in Serum or PlasmaOrdered By: Kentrell King on 18-47-2387Pupzkgz [Mass/Vol]Glucose [Mass/volume] in Serum or Twnodg12-701NmjhhppbhPromedica Toledo HospitalComment on above:ADA recommended reference rangeRandom Glucose Reference Range is dependent on time and content of last meal. Glucose of more than 200 mg/dL in a nonstressed, ambulatory subject supports the diagnosisof Diabetes Mellitus.Glucose [Mass/volume] in Urine by Test stripOrdered By: Kentrell King on 07-33-6995Pgqxdhi Test strip (U) [Mass/Vol]Glucose [Mass/volume] in Urine by Test stripNormalPromedica Toledo HospitalHCG ( test) IA.rapid Ql (U)Ordered By: Kentrell King on 73-32-9883HSH ( test) Ql (U)Urine human chorionic gonadotropin (hCG) detection by immunoassayPromedica Toledo Hospital HCG,Urineon 16-91-2183Fuzv HCG ( test) Ql (U)NegativeNormalThe [facility] Health Physician GroupComment on above:Order Comment: Name Collection Type:: Clean-Voided MidstreamResult Comment: PERFORMED BY: [place] [address] PATHOLOGIST GEOSPATIAL APPLICATIONS DEVELOPER KATLIN JERONIMO M.D.Performed By: #### UHCG, ADDONUAPLUS, CUU #### [place] [address] USAHematocrit Auto (Bld) [Volume fraction]Ordered By: Kentrell King on 07-13-8343Qfkpnpuvub (Bld) [Volume fraction]Hematocrit [Volume Fraction] of Blood by Automated count34.0-46.4FKettering Health Springfield Hemoglobin Test strip Ql (U)Ordered By: Kentrell King on 77-95-4313Pzxhmuujac Ql (U)Hemoglobin [Presence] in Urine by Test stripHighNegativePromedica Toledo HospitalHemoglobin [Mass/volume] in BloodOrdered By: Kentrell King on 69-27-7608Aalrnobwuj (Bld) [Mass/Vol]Hemoglobin [Mass/volume] in Blood11.8-15.4 [facility] HospitalHepatic Panelon 71-76-4556Drirvdo [Mass/Vol]4.0 g/dLNormal3.5-5.7The [facility] Health Physician GroupComment on above:Performed By: #### BMP, CBC, LIPASE, HEPATIC #### [facility] [address] [place] [address] USAAlbumin/Globulin [Mass ratio]1.2 {ratio}NormalThe [facility] Health Physician GroupComment on above:Performed By: #### BMP, CBC, LIPASE, HEPATIC #### [facility] [address] [place] [address] USAALP [Catalytic activity/Vol]81 U/EFnwafl46-827Yss [facility] Health Physician GroupComment on above:Performed By: #### BMP, CBC, LIPASE, HEPATIC #### [facility] [address] [place] [address] USAALT [Catalytic activity/Vol]22 U/LNormal7-52The [facility] Health Physician GroupComment on above:Performed By: #### BMP, CBC, LIPASE, HEPATIC #### [facility] [address] [place] [address] USAAST [Catalytic activity/Vol]19 U/ZFqarey46-27Tuq Ecu Health Physician GroupComment on above:Performed By: #### BMP, CBC, LIPASE, HEPATIC #### [facility] [address] [place] [address] USABilirubin [Mass/Vol]0.4 mg/dLNormal0.3-1.0The Ecu Health Physician GroupComment on above:Performed By: #### BMP, CBC, LIPASE, HEPATIC #### [place] [address] USABilirubin,Indirect0.3 mg/dLNormalThe Ecu Health Physician GroupComment on above:Performed By: #### BMP, CBC, LIPASE, HEPATIC #### [place] [address] USABilirubin.indirect [Mass/Vol]0.10 mg/dLNormal0.03-0.18The Ecu Health Physician GroupComment on above:Performed By: #### BMP, CBC, LIPASE, HEPATIC #### [place] [address] USAGlobulin (S) [Mass/Vol]3.4 g/dLNormalThe Ecu Health Physician GroupComment on above:Performed By: #### BMP, CBC, LIPASE, HEPATIC #### [place] [address] USAProtein [Mass/Vol]7.4 g/dLNormal6.4-8.9The Ecu Health Physician GroupComment on above:Performed By: #### BMP, CBC, LIPASE, HEPATIC #### [place] [address] USAHyaline casts [#/area] in Urine sediment by Automated countOrdered By: Kentrell King on 43-17-4707Fwempze casts Auto (Urine sed) [#/Area]Hyaline casts [#/area] in Urine sediment by Automated count0-8Prom[facility] Toledo HospitalINR in Platelet poor plasma by Coagulation assayOrdered By: Kentrell King on 44-93-2516LWW Coag (PPP) [Relative time]INR in Platelet poor plasma by Coagulation assayPromedica Toledo HospitalComment on above:INR Therapeutic Range A) Pre- and [...] strip Ql (U)Ordered By: Kentrell King on 20-53-7263Mthsico Ql (U)Ketones [Presence] in Urine by Test stripNegative [facility]edo HospitalLeukocyte esterase [Presence] in Urine by Test stripOrdered By: Kentrell King on 32-84-4375Apqtqmysh esterase Test strip Ql (U)Leukocyte esterase [Presence] in Urine by Test stripHighNegativePromedica Toledo HospitalLeukocytes [#/area] in Urine sediment by Automated count Ordered By: Kentrell King on 35-67-4086RIM Auto (Urine sed) [#/Area] Leukocytes [#/area] in Urine sediment by Automated countHigh04FKettering Health SpringfieldLeukocytes [#/volume] corrected for nucleated erythrocytes in Blood by Automated counOrdered By: Kentrell King on 96-93-9636TLJ corrected for nucl RBC Auto (Bld) [#/Vol]Leukocytes [#/volume] corrected for nucleated erythrocytes in Blood by Automated coun3.8-11.6FKettering Health SpringfieldLipaseon 44-38-1875Xehdhu [Catalytic activity/Vol]9.0 U/LLow11.0-82.0The Ecu Health Physician GroupComment on above:Result Comment: PERFORMED BY: [place] [address] [place] [address] PATHOLOGIST GEOSPATIAL APPLICATIONS DEVELOPER KATLIN JERONIMO M.D.Performed By: #### BMP, CBC, LIPASE, HEPATIC #### [facility] [address] [place] [id number] USALipase [Enzymatic activity/volume] in Serum or Plasma Ordered By: Kentrell King on 31-68-8206Teaftg [Catalytic activity/Vol]Lipase [Enzymatic activity/volume] in Serum or RpgfmzQqy18.0-82.0Prom[facility]ica Toledo HospitalLymphocytes Auto (Bld) [#/Vol]Ordered By: Kentrell King on 06-03-6985Ypmqcfwfkcg (Bld) [#/Vol]Lymphocytes [#/volume] in Blood by Automated count1.00-4.8Prom[facility] Toledo HospitalLymphocytes/100 WBC Auto (Bld) Ordered By: Kentrell King on 09-14-4288Nrpspijpukw/100 WBC (Bld) Lymphocytes/100 leukocytes in Blood by Automated count.[facility] Auto (RBC) [Entitic mass]Ordered By: Kentrell King on 03-75-3400ONM (RBC) [Entitic mass]MCH [Entitic mass] by Automated count24.7-34.3 [facility] HospitalHC Auto (RBC) [Mass/Vol]Ordered By: Kentrell King on 40-06-3171FGPL (RBC) [Mass/Vol]MCHC [Mass/volume] by Automated count 32.0-35.0Prom[facility] Toledo HospitalMCV Auto (RBC) [Entitic vol]Ordered By: Kentrell King on 00-68-8293YNK (RBC) [Entitic vol]MCV [Entitic volume] by Automated sspue07-055NnwbiugyyPromedica Toledo HospitalMonocyte distribution width [Entitic volume] in Blood by AutomatedOrdered By: Kentrell King on 20-30-3536Kpwfoqim distribution width Auto (Bld) [Entitic vol]Monocyte distribution width [Entitic volume] in Blood by AutomatedHigh0.00-20.00Prom[facility]ica Toledo HospitalComment on above:For adults in ED, MDW > 20.0 may be associated with a higher risk of sepsis during the first 12 hrs of hospital admissionMonocytes Auto (Bld) [#/Vol]Ordered By: Kentrell King on 02-28-2025 Monocytes (Bld) [#/Vol]Automated blood monocyte count0.0-0.8Prom[facility] Toledo HospitalMonocytes/100 WBC Auto (Bld)Ordered By: Kentrell King on 60-25-8842Tobdujour/100 WBC (Bld)Automated monocyte %.[facility]edo HospitalMucus [Presence] in Urine by AutomatedOrdered By: Kentrell King on 05-92-7876Aeiff Auto Ql (U)Mucus [Presence] in Urine by AutomatedAbnormal [facility]edo HospitalNeutrophils Auto (Bld) [#/Vol]Ordered By: Kentrell King on 96-06-9300Nnvhpvhzztd (Bld) [#/Vol]Neutrophils [#/volume] in Blood by Automated count1.8-7.7FKettering Health SpringfieldNeutrophils/100 WBC Auto (Bld)Ordered By: Kentrell King on 71-99-9793Bvfltomwgis/100 WBC (Bld)Automated neutrophil %.[facility] Toledo HospitalNitrite Test strip Ql (U)Ordered By: Kentrell King on 39-24-5598Iwsoxpb Ql (U)Nitrite [Presence] in Urine by Test stripNegativePromedica Toledo HospitalNo Panel InformationOrdered By: Kentrell King on 66-07-7716Mqsyfbxky GFR (CKD-EPI)> 60.0 mL/MinPromedica Toledo HospitalPharmacy Creatinine Clearance (Chem 183.30Prom[facility] Toledo HospitalNucleated erythrocytes [Presence] in Blood by Automated countOrdered By: Kentrell King on 53-80-6580Umxsksddm RBC Auto Ql (Bld)Nucleated erythrocytes [Presence] in Blood by Automated count0-0.5 [facility]edo HospitalPartial Thromboplastin Timeon 23-62-6440aWLD Coag (Bld) [Time]31.8 cNktpyn63.1-36.5The Ecu Health Physician GroupComment on above:Result Comment: A hematocrit value greater than 55% may lead to inaccurate results in coagulation testing. Patients having hematocrit values >55% require a special collection tube for coagulation studies. Please contact the laboratory at [phone] for redraw instructions. PERFORMED BY: [facility] [address] [place] [address] PATHOLOGIST GEOSPATIAL APPLICATIONS DEVELOPER KATLIN JERONIMO M.D.Performed By: #### PTT, PT #### [place] [address] USAPlatelet mean volume Auto (Bld) [Entitic vol]Ordered By: Kentrell King on 10-97-9826Gdzirtdn mean volume (Bld) [Entitic vol]Platelet mean volume [Entitic volume] in Blood by Automated count6.3-10.7FKettering Health SpringfieldPlatelets Auto (Bld) [#/Vol]Ordered By: Kentrell King on 46-03-1561Mksmclggl (Bld) [#/Vol]Platelets [#/volume] in Blood by Automated -336OfvgwmjsxPromedica Toledo HospitalPotassium [Moles/volume] in Serum or PlasmaOrdered By: Kentrell King on 20-77-6986Gbckultfw [Moles/Vol] Potassium [Moles/volume] in Serum or Plasma3.5-5.1FKettering Health SpringfieldProtein Test strip (U) [Mass/Vol]Ordered By: Kentrell King on 37-52-7385Bfvpcdp (U) [Mass/Vol]Protein [Mass/volume] in Urine by Test stripHigh NegativePromedica Toledo HospitalProtein [Mass/volume] in Serum or PlasmaOrdered By: Kentrell King on 43-87-9715Qdsgjdc [Mass/Vol]Protein [Mass/volume] in Serum or Plasma6.4-8.9[facility] Prothrombin Time INRon 41-74-9546OVF Coag (PPP) [Relative time]1.1 {INR}Normal The Ecu Health Physician GroupComment on above:Result Comment: INR Therapeutic [...] - 4.5Performed By: #### PTT, PT #### [facility] [address] [place] [address] USAPT Coag (PPP) [Time]12.2 sNormal9.0-12.9The Ecu Health Physician GroupComment on above:Result Comment: A hematocrit value greater than 55% may lead to inaccurate results in coagulation testing. Patients having hematocrit values >55% require a special collection tube for coagulation studies. Please contact the laboratory at [phone] for redraw instructions.Performed By: #### PTT, PT #### [facility] [address] [place] [address] USAProthrombin time (PT)Ordered By: Kentrell King on 13-52-9899EM Coag (PPP) [Time]Prothrombin time (PT)9.0-12.9Prom[facility] Toledo HospitalComment on above:A hematocrit value greater than 55% may lead to inaccurate results in coagulation testing. Patientshaving hematocrit values >55% require a special collection tube for coagulation studies. Please contact the laboratory at [phone] for redraw instructions.RBC Auto (Bld) [#/Vol]Ordered By: Kentrell King on 96-70-9389DPO (Bld) [#/Vol]Erythrocytes [#/volume] in Blood by Automated countHigh3.60-5.00[facility] Health West Hospitalerum or plasma albumin/globulin mass ratioOrdered By: Kentrell King on 02-28-2025 Albumin/Globulin [Mass ratio]Serum or plasma albumin/globulin mass ratio [facility] Hospitalerum or plasma anion gap determinationOrdered By: Kentrell King on 88-92-9120Kqrme gap [Moles/Vol]Serum or plasma anion gap determination6.0-15.0[facility] Hospitalerum or plasma non- glucuronidated bilirubin measurement (mass/volume)Ordered By: Kentrell King on 56-25-5152Qgqlpehow.indirect [Mass/Vol]Serum or plasma non-glucuronidated bilirubin measurement (mass/volume)[facility] Hospitalodium [Moles/volume] in Serum or PlasmaOrdered By: Kentrell King on 02-28-2025 Sodium [Moles/Vol]Sodium [Moles/volume] in Serum or Dnrhjn268-171KvvnklpxvMercy Health West Hospitalpecific gravity Test strip (U) [Rel density]Ordered By: Kentrell King on 94-75-3285Izfeuqij gravity (U) [Rel density]Specific gravity of Urine by Test stripHigh1.001-1.030Prom[facility] Toledo HospitalUrea nitrogen [Mass/volume] in Serum or PlasmaOrdered By: Kentrell King on 50-05-7002Qnxq nitrogen [Mass/Vol]Urea nitrogen [Mass/volume] in Serum or Plasma 7-[facility]ica Toledo HospitalUrine Cultureon 64-15-8433Pkotlotu identified Cx Nom (U)>100,000 colonies/ml mixed bacterial skin contaminants 2 Days PERFORMED BY: [place] [address] PATHOLOGIST GEOSPATIAL APPLICATIONS DEVELOPER KATLIN JERONIMO M.D.[facility] Physician GroupComment on above: Performed By: #### CG, OZIEL, CUU #### [place] [address] USAUrobilinogen Test strip (U) [Mass/Vol]Ordered By: Kentrell King on 02-03-2044Xszelyqablpe (U) [Mass/Vol]Urobilinogen [Mass/volume] in Urine by Test stripNoSt. Mary's Medical CenterWBC Auto (Bld) [#/Vol] Ordered By: Kentrell King on 13-02-3553CDI (Bld) [#/Vol]Leukocytes [#/volume] in Blood by Automated count3.8-11.6FKettering Health SpringfieldaPTT in Platelet poor plasma by Coagulation assayOrdered By: Kentrell King on 81-46-1015tPFO Coag (PPP) [Time]Activated partial thromboplastin time (aPTT) in platelet poor plasma by coagulation a25.1-36.5FKettering Health Springfield Comment on above:A hematocrit value greater than 55% may lead to inaccurate results in coagulation testing. Patientshaving hematocrit values >55% require a special collection tube for coagulation studies. Please contact the laboratory at [phone] for redraw instructions.pH Test strip (U)Ordered By: Kentrell King on 58-43-5730wF (U)pH of Urine by Test strip5.0-9.0[facility] HospitalCB With Platelet and Differentialon 95-36-1289Vpdefswla (Bld) [#/Vol]0.0 10*3/uLNormal0.0-0.2MAnimas Surgical HospitalComment on above: Performed By: #### CBCWD #### [facility] [address] [place] [address] Hyzdqpevq/100 WBC (Bld)0.3 %[facility] Comment on above:Performed By: #### CBCWD #### [facility] [address] [place] [address] Xuddbhaxdhq (Bld) [#/Vol]0.2 10*3/uLNormal0.0-0.7[facility] HospitalComment on above:Performed By: #### CBCWD #### [facility] [address] [place] [address] Aclftiwzewo/100 WBC (Bld)2.1 %[facility] Comment on above:Performed By: #### CBCWD #### [facility] [address] [place] [address] Tiajoiosavd distribution width (RBC) [Ratio]12.8 %Dcfudg57.5-14.5 [facility] HospitalComment on above:Performed By: #### CBCWD #### [facility] [address] [place] [address] Nbmprqnnxp (Bld) [Volume fraction]41.9 %Xnhyvz86.0-47.0[facility] HospitalComment on above:Performed By: #### CBCWD #### [facility] [address] [place] [address] Psvikvhvav (Bld) [Mass/Vol]13.3 g/pOZukgsj13.0-16.0[facility] HospitalComment on above:Performed By: #### CBCWD #### [facility] [address] [place] [address] Uktsozpumlt (Bld) [#/Vol]2.8 10*3/uLNormal1.0-4.8[facility] HospitalComment on above:Performed By: #### CBCWD #### [facility] [address] [place] [address] Vntzojuvfzu/100 WBC (Bld)31.2 %[facility] Comment on above:Performed By: #### CBCWD #### [facility] [address] [place] [address] VLS (RBC) [Entitic mass]26.4 pgLow27.0-31.3MAnimas Surgical HospitalComment on above:Performed By: #### CBCWD #### [facility] [address] [place] [address] BLBG90.7 %Low33.0-37.0[facility] HospitalComment on above: Performed By: #### CBCWD #### [facility] [address] [place] [address] LSD (RBC) [Entitic vol]83.1 vTMjdctb79.4-94.8[facility] HospitalComment on above:Performed By: #### CBCWD #### [facility] [address] [place] [address] Yzvqmjlda (Bld) [#/Vol]0.4 10*3/uLNormal0.2-0.8[facility] HospitalComment on above:Performed By: #### CBCWD #### [facility] [address] [place] [address] Mvpnytksj/100 WBC (Bld)5.0 %[facility] Comment on above:Performed By: #### CBCWD #### [facility] [address] [place] [address] Ffvdheldpme (Bld) [#/Vol]5.4 10*3/uLNormal1.4-6.5[facility] HospitalComment on above:Performed By: #### CBCWD #### [facility] [address] [place] [address] Lraytvnfqxn/100 WBC (Bld)60.9 %NormalKeefe Memorial Hospital Comment on above:Performed By: #### CBCWD #### [facility] [address] [place] [address] Xmcbfvspb (Bld) [#/Vol]321 10*3/rIEaxqwz741-250LepoiKeefe Memorial HospitalComment on above:Performed By: #### CBCWD #### [facility] [address] [place] [address] KJM (Bld) [#/Vol]5.04 10*6/uLNormal4.20-5.40[facility] HospitalComment on above:Performed By: #### CBCWD #### [facility] [address] [place] [address] NEL (Bld) [#/Vol]8.9 10*3/uLNormal4.8-10.8[facility] HospitalComment on above:Performed By: #### CBCWD #### [facility] [address] [place] [address] J Urineon 58-38-6307Ekdvfayy identified Cx Nom (U)Microbiology PROCEDURE: Urine Culture [R1] SOURCE: U CleanCatch BODY SITE: COLLECTED DATE/TIME: 11/23/2024 03:54 EST RECEIVED DATE/TIME: 11/23/2024 04:48 EST START DATE/TIME: 11/23/2024 04:48 EST FREE TEXT SOURCE: Drake Bynum, Debra Juan M.D., Debra Tang FINAL REPORTS Final Report [] Verified Date/Time: 11/25/2024 10:24 EST 2,000 cfu/ml Mixed skin contaminants Performing Locations R1: This test was performed at: [facility], [address] [place] [address], [id number] , [place], FguqpkNuezktScci Hospital LimaComment on above:Performed By: #### [id number] #### [facility] [address] [place] [address]QSVzh 71-88-1022Nclwq gap [Moles/Vol]12 mmol/LNormal6-16S[facility] Hospital LimaComment on above:Performed By: #### [id number] #### [facility] [address] [place] [address]Csayyfx [Mass/Vol]9.2 mg/dLNormal8.9-11.1FPremier Health Miami Valley Hospital SouthComment on above:Performed By: #### [id number] #### [facility] [address] [place] [address]Hiepiemv [Moles/Vol]107 mmol/HCzvboj176-084TbmdggScci Hospital LimaComment on above:Performed By: #### [id number] #### [facility] [address] [place] [address] 40[address]OT9 [Moles/Vol]23 mmol/UIzjxtf08-54MlcrgbScci Hospital Lima Comment on above:Performed By: #### [id number] #### [facility] [address] [place] [address] 419[address]Mwqhgjulhh [Mass/Vol]0.6 mg/dLNormal0.5-1.3FPremier Health Miami Valley Hospital SouthComment on above:Performed By: #### [id number] #### [facility] [address] [place] [address] 523[address]Uyasygl [Mass/Vol]121 mg/eOVhehfw94-982WlmqteScci Hospital LimaComment on above:Performed By: #### [id number] #### [facility] [address] [place] [address] 07[address]Sdlgocfsv [Moles/Vol]4.0 mmol/LNormal3.5-5.3FPremier Health Miami Valley Hospital SouthComment on above:Performed By: #### [id number] #### [facility] [address] [place], [place] [address]Dyfenv [Moles/Vol]138 mmol/VUarvds473-091RuntdfScci Hospital LimaComment on above:Performed By: #### [id number] #### [facility] [address] [place] [address] 07[address]Uasy nitrogen [Mass/Vol]13 mg/dLNormal5-21Scci Hospital LimaComment on above:Performed By: #### [id number] #### [facility] [address] [place] [address] 25779Bomj nitrogen/Creatinine [Mass ratio]22 No VmkdyDcog00-07ZgsmccScci Hospital LimaComment on above:Performed By: #### [id number] #### [facility] [address] [place] [address]IFM w/ Auto Diffon 96-33-5815Kpkcdqink/100 WBC (Bld)0.6 %Normal 0.0-2.0Scci Hospital LimaComment on above:Performed By: #### [id number] #### [facility] [address] [place] [address]79[address]Fxldeeenl/Leukocytes Auto (Bld) [Pure # fraction]0.1 E9/LNormal 0.0-0.2FPremier Health Miami Valley Hospital SouthComment on above:Performed By: #### [id number] #### [facility] [address] [place] [address]Orseevqztzv (Bld) [#/Vol]0.1 E9/LNormal0.0-0.5FPremier Health Miami Valley Hospital SouthComment on above:Performed By: #### [id number] #### [facility] [address] [place] [address]Jemwaldlsap/100 WBC (Bld)1.5 %Normal0.0-8.0Scci Hospital LimaComment on above:Performed By: #### [id number] #### [facility] [address] [place] [address] 669[address]Odwjplabslg distribution width (RBC) [Ratio]14.4 %High10.9-14.2 Scci Hospital LimaComment on above:Performed By: #### [id number] #### [facility] [address] [place] [address] 47898Jvzvrfxgrp (Bld) [Volume fraction]42.4 %Hupyjm82.0-46.0Scci Hospital LimaComment on above:Performed By: #### [id number] #### [facility] [address] [place] [address] 350[address]Cnjlzakhci (Bld) [Mass/Vol]14.3 g/mYVndhzo54.0-16.0Scci Hospital LimaComment on above:Performed By: #### [id number] #### [facility] [address] [place] [address]90[address]Kwprfexlien (Bld) [#/Vol]1.2 E9/LNormal1.0-4.0Scci Hospital LimaComment on above:Performed By: #### [id number] #### [facility] [address] [place] [address] 567[address]Laerqfbzpre/100 WBC (Bld)13.5 %Low14.0-50.0S[facility] Hospital LimaComment on above:Performed By: #### [id number] #### [facility] [address] [place] [address] 308[address]GIR (RBC) [Entitic mass]27.8 aaGjdheo07.0-34.0S[facility] Hospital LimaComment on above:Performed By: #### [id number] #### [facility] [address] [place] [address] 256[address]TDFU (RBC) [Mass/Vol]33.7 g/bKTjeqtn84.4-36.0S[facility] Hospital LimaComment on above:Performed By: #### [id number] #### [facility] [address] [place] [address] 569[address]YNR (RBC) [Entitic vol]82.3 oYWzarsh14.0-100.0S[facility] Hospital LimaComment on above:Performed By: #### [id number] #### [facility] [address] [place] [address] 954[address]Zynmltfdi (Bld) [#/Vol]0.4 E9/LNormal0.2-1.0[facility] Hospital LimaComment on above:Performed By: #### [id number] #### [facility] [address] [place] [address] 99[address]Larbmveqbze (Bld) [#/Vol]7.2 E9/LNormal2.0-7.5FPremier Health Miami Valley Hospital SouthComment on above:Performed By: #### [id number] #### [facility] [address] [place] [address] 096[address]Vsekizzpgnz/100 WBC (Bld)80.0 %High36.0-75.0[facility] Hospital LimaComment on above:Performed By: #### [id number] #### [facility] [address] [place] [address] 59[address]Twfejnhm877.0 E9/PWmmmzi373.0-500.0[facility] Comment on above:Performed By: #### [id number] #### [facility] [address] [place] [address] 494[address]Vcvybwyv mean volume (Bld) [Entitic vol]8.4 fLNormal6.4-10.8 [facility] Hospital LimaComment on above:Performed By: #### [id number] #### [facility] [address] [place] [address]11[address]IBC (Bld) [#/Vol]5.2 E12/LNormal4.3-5.9S[facility] Hospital LimaComment on above:Performed By: #### [id number] #### [facility] [address] [place] [address] 80879TIZ corrected for nucl RBC Auto (Bld) [#/Vol]9.0 E9/LNormal 4.0-11.0S[facility] Hospital LimaComment on above:Performed By: #### [id number] #### [facility] [address] [place], [place] [address]KZYUZQYKKKzgxbnb By: SYSTEM SYSTEM on 10-26-3460Urpmpjv [Mass/Vol]4.2 g/dLNormal3.3 - 5.0 gm/dLRemisol ChemAlbumin/Globulin [Mass ratio] 1.1 {ratio}Normal1.1 - 2.2Remisol ChemALP [Catalytic activity/Vol]73 [iU]/d Bmvwfa55 - 98 Int._Unit/LRemisol ChemALT No additional P-5'-P [Catalytic activity/Vol]17 [iU]/dNormal6 - 46 Int._Unit/LRemisol ChemAnion gap [Moles/Vol] 12 mmol/LNormal6 - 16 mEq/LRemisol ChemAST [Catalytic activity/Vol]18 [iU]/d Normal5 - 43 Int._Unit/LRemisol ChemBilirubin [Mass/Vol]0.8 mg/dLNormal0.0 - 1.1 mg/dLRemisol ChemBilirubin.direct [Mass/Vol]0.0 mg/dLNormal0.0 - 0.4 mg/dL Remisol ChemBilirubin.indirect [Mass or moles/Vol]0.8 mg/dLNormal0.1 - 0.9 mg/dL Remisol ChemCalcium [Mass/Vol]9.2 mg/dLNormal8.9 - 11.1 mg/dLRemisol Chem Chloride [Moles/Vol]107 mmol/WBadvcx516 - 111 mmol/LRemisol ChemCO2 [Moles/Vol] 23 mmol/RUhzjve23 - 31 mmol/LRemisol ChemCreatinine [Mass/Vol]0.6 mg/dLNormal0.5 - 1.3 mg/dLRemisol SgnkdONP101 mL/min/1.73 l7Avxbsm>=59mL/min/1.73 o0Nlmcewz ChemGlobulin (S) [Mass/Vol]3.7 g/dLNormal1.4 - 4.0 gm/dLRemisol ChemGlucose [Mass/Vol]121 mg/vBXaowlf68 - 199 mg/dLRemisol ChemLipase [Catalytic activity/Vol]8 U/LLow13 - 58 unit/LRemisol ChemMagnesium [Mass/Vol]1.8 mg/dL Normal1.3 - 2.4 mg/dLRemisol ChemPotassium [Moles/Vol]4.0 mmol/LNormal3.5 - 5.3 mmol/LRemisol ChemProtein [Mass/Vol]7.9 g/dLHigh6.0 - 7.8 gm/dLRemisol Chem Sodium [Moles/Vol]138 mmol/FBrofis256 - 145 mmol/LRemisol ChemTroponin HSpg/mL Low10.10 - 27.10 pg/mLRemisol ChemComment on above:Interpretive Data: The 95% CI (Confidence Interval) PPV (Positive Predictive Value) for myocardial infarction in females is 38 pg/mL, in males 51 pg/mL. The results should be used in conjunction withclinical conditions of myocardial infarction. (Access High Sensitivity Troponin I Instructions For Use, [place], May 2018)Urea nitrogen [Mass/Vol]13 mg/dLNormal5 - 21 mg/dLRemisol ChemUrea nitrogen/Creatinine [Mass ratio]22 mg/biTmcc86 - 20Remisol ChemED Clinical Summaryon [id number] Clinical SummaryED Clinical Summary [place] [id number] ED Clinical Summary Person Information Name: PRUDENCIO JARAMILLO Hetal/[facility] Age: 29 Years : 1995 Sex: Female Language: Nigerien PCP: ELIZABETH CRUZ CNP Marital Status: Visit [...] 11/23/2024 05:18:31 11/23/2024 05:18:31 11/23/2024 05:18:31 ADDRESS: [address] [place] [phone] PHYS DOC NOTES: MEDICAL INFORMATION: Prescriptions Given: New Medications [facility]/pharmacy #[id number], [address] [place], [place] [id number], [phone] ondansetron (Zofran ODT 4 mg Tab-Dis) 1 Tablets By Mouth every 6 hours as needed Nausea/Vomiting. Refills: 0. PATIENT EDUCATION INFORMATION: Instructions: Diarrhea, Adult; Nausea and Vomiting, Adult; Near-Syncope Follow up: With: Address: When: [place] [address] Business (1) In 3 days 11/26/2024 Comments: Return to the emergency room if your vomiting recurs or any new symptoms. DIAGNOSIS: 1:Vomiting and diarrhea; 2:Near syncope; Diarrhea, unspecifiedNormalFisher West Carroll Medical CenterED Note-Physicianon [id number] Note-PhysicianED Note-Physician Basic Information Time Seen: Debra [...] and Complexity of Problems Differential Diagnosis: [] [facility] Data External documents reviewed: [] My EKG [...] PRN Nausea/Vomiting, # 12 tab(s), Refills(s) 0, Pharmacy:[facility]/pharmacy #[id number], 155, cm, 11/23/24 3:07:00 EST, Height/Length [...] Lipase Level Magnesium Level Rapid COVID Antigen ([facility]) Troponin 0 Hr. UA with [...] 3 days 11/26/2024 [place] [address]- Business (1) Additional Instructions: Return to the emergency room if your vomiting recurs or any new symptoms. Patient Education Diarrhea, Adult Nausea and Vomiting, Adult Near-Syncope Problem List/Past Medical History Ongoing Acute pharyngitis Acute URI Clostridium difficile diarrhea Diverticulitis Loss of taste Lumbago Lumbar radiculitis Right otitis media Sinus congestion Historical Appendectomy Depression Migraine Procedure/Surgical History sec (more content not included)...[facility] Comment on above:Result Comment: Electronically Signed By: Debra Juan M.D.\.br\Date and Time Signed: 11/23/2504:31 ESTED Patient Summaryon [id number] Patient SummaryED Patient Summary [address] [address] Patient Discharge Instructions Person Information Name: PRUDENCIO JARAMILLO Age: 29 Years Arrival Date: 11/23/2024 02:56:10 Discharge Diagnosis: 1:Vomiting and diarrhea; 2:Near syncope; Diarrhea, unspecified Primary Care Physician: ELIZABETH CRUZ CNP Provider Information Primary Provider: Debra Juan M.D. [employer] Supervisor:None The exam and treatment you received in the Emergency Department were for an urgent problem and are not intended as complete care. It is important that you follow up with a doctor, nurse practitioner,or physician???s medical administrative assistant for ongoing care. If your symptoms become worse or you do not improve asexpected and you are unable to reach your usual health care provider, you should return to the Emergency Department. We are available 24 hours a day. CLINTPRUDENCIO WONG has been given the following list of patient education materials, prescriptions and follow-up instructions: Follow-up Instructions: With: Address: When: [place] [address] Business (1) In 3 days 11/26/2024 [...] opioids can be used to help relieve nnvkrnka-wx-ksquoc pain and are often prescribed following a [...] to learn about the (more content not included)...[facility] HospitalHEMATOLOGYOrdered By: SYSTEM SYSTEM on 97-01-0856Mqonwoopz/100 WBC (Bld)0.6 %Normal0.0 - 2.0 %Remisol Heme Basophils/Leukocytes Auto (Bld) [Pure # fraction]0.1 E9/LNormal0.0 - 0.2 E9/L Remisol HemeEosinophils (Bld) [#/Vol]0.1 E9/LNormal0.0 - 0.5 E9/LRemisol Heme Eosinophils/100 WBC (Bld)1.5 %Normal0.0 - 8.0 %Remisol HemeErythrocyte distribution width (RBC) [Ratio]14.4 %High10.9 - 14.2 %Remisol HemeHematocrit (Bld) [Volume fraction]42.4 %Gysheh12.0 - 46.0 %Remisol HemeHemoglobin (Bld) [Mass/Vol]14.3 g/mNKixyxg77.0 - 16.0 gm/dLRemisol HemeLymphocytes (Bld) [#/Vol] 1.2 E9/LNormal1.0 - 4.0 E9/LRemisol HemeLymphocytes/100 WBC (Bld)13.5 %Low14.0 - 50.0 %Remisol HemeMCH (RBC) [Entitic mass]27.8 yeDekevx92.0 - 34.0 pgRemisol HemeMCHC (RBC) [Mass/Vol]33.7 g/zLZtvxah70.4 - 36.0 gm/dLRemisol HemeMCV (RBC) [Entitic vol]82.3 aJAbakon43.0 - 100.0 fLRemisol HemeMonocytes (Bld) [#/Vol]0.4 E9/LNormal0.2 - 1.0 E9/LRemisol HemeMonocytes/100 WBC (Bld)4.4 %Normal4.0 - 14.0 %Remisol HemeNeutrophils (Bld) [#/Vol]7.2 E9/LNormal2.0 - 7.5 E9/LRemisol Heme Neutrophils/100 WBC (Bld)80.0 %High36.0 - 75.0 %Remisol DxinLsuypajz115.0 E9/L Mcgfcv734.0 - 500.0 E9/LRemisol HemePlatelet mean volume (Bld) [Entitic vol]8.4 fLNormal6.4 - 10.8 fLRemisol HemeRBC (Bld) [#/Vol]5.2 E12/LNormal4.3 - 5.9 E12/L Remisol HemeWBC corrected for nucl RBC Auto (Bld) [#/Vol]9.0 E9/LNormal4.0 - 11.0 E9/LRemisol HemeHep Func Panelon 00-59-3358Vhdywuj [Mass/Vol]4.2 g/dLNormal 3.3-5.0Scci Hospital LimaComment on above:Performed By: #### [id number] #### [facility] [address], [place] [address]Rbfoydz/Globulin (S) [Mass conc ratio]1.6Jmsjdm4.1-2.2FPremier Health Miami Valley Hospital SouthComment on above:Performed By: #### [id number] #### [facility] [address], [place] [address]FAM [Catalytic activity/Vol]73 Int._Unit/AMklenl39-06SepzaoScci Hospital LimaComment on above:Performed By: #### [id number] #### [facility] [address] [place] [id number] No additional P-5'-P [Catalytic activity/Vol]17 Int._Unit/L Normal6-46S[facility] Hospital LimaComment on above:Performed By: #### [id number] #### [facility] [address] [place] [address]BOJ [Catalytic activity/Vol]18 Int._Unit/LNormal5-43S[facility] Hospital LimaComment on above:Performed By: #### [id number] #### [facility] [address] [place] [address]Kqxazinmx [Mass/Vol]0.8 mg/dLNormal0.0-1.1FPremier Health Miami Valley Hospital SouthComment on above:Performed By: #### [id number] #### [facility] [address] [place] [address]Utzpgxchu.direct [Mass/Vol]0.0 mg/dLNormal0.0-0.4FPremier Health Miami Valley Hospital SouthComment on above:Performed By: #### [id number] #### [facility] [address] [place] [address]Zvvduhwri.indirect [Mass or moles/Vol]0.8 mg/dLNormal0.1-0.9 [facility] Hospital LimaComment on above:Performed By: #### [id number] #### [facility] [address] [place] [address]Kytsurlx (S) [Mass/Vol]3.7 g/dLNormal1.4-4.0S[facility] Hospital LimaComment on above:Performed By: #### [id number] #### [facility] [address] [place] [address]Ollqeff [Mass/Vol]7.9 g/dLHigh6.0-7.8S[facility] Hospital LimaComment on above:Performed By: #### [id number] #### [facility] [address], [place] [address]Oserqympf A&B Agon 34-87-6002Rjdepyrhjk A AgNegativeNormal NegativeScci Hospital LimaComment on above:Performed By: #### [id number] #### [facility] [address], [place] [address]Ridygtzxvq B AgNegativeNormalNegativeScci Hospital LimaComment on above:Result Comment: Test sensitivity and specificity vary for age group, specimen type, antigen types, and prevalence of disease. Test results must be evaluated in conjunction with other clinical data available to the physician. Individuals who received nasally administered Influenza A vaccine may havepositive test results up to 3 days after vaccination.Performed By: #### [id number] #### [facility] [address], [place] [address]Ixspgq Levelon 20-00-9277Eowggv [Catalytic activity/Vol]8 U/L Oxv30-22ExlabzScci Hospital LimaComment on above:Performed By: #### [id number] #### [facility] [address], [place] [address]FXMEU OTHER TESTSOrdered By: Shanique Jerez on 11-23-2024 Influenzae A AgNegative (11/23/24 3:11 AM)NormalNegativeSA[facility] Man SeroInfluenzae B AgNegative 2 (11/23/24 3:11 AM)NormalNegativeSAINT FRANCIS [facility] [place] Man SeroComment on above:Interpretive Data: Test sensitivity and specificity vary for age group, specimen type, antigen types, and prevalence of disease. Test results must be evaluated in conjunction with other clinical dataavailable to the physician. Individuals who received nasally administered Influenza A vaccine may have positive test results up to 3 days after vaccination.Rapid COV Int NEG CtlPass (11/23/24 3:11 AM)NormalSAINT FRANCIS [facility] [place] Man SeroRapid COV Int POS CtlPass (11/23/24 3:11 AM)NormalSAINT FRANCIS [facility]OS[facility]ITAL [facility] [place] Man SeroSARS-CoV+SARS-CoV-2 (COVID-19) Ag IA.rapid Ql (Resp)Not Detected 4 (2/16/25 3:11 AM)NormalNot DetectedSAINT FRANCIS [facility]OS[facility]ITAL [facility] [place] Man SeroComment on above:Interpretive Data: The [employer] Veritor System for Rapid Detection of SARS-CoV-2 [...] the authorization is terminated or revoked sooner.Magnesiumon 27-58-0734Wmaknaddi [Mass/Vol]1.8 mg/dL Normal1.3-2.4[facility] CampusComment on above:Performed By: #### [id number] #### [facility] [address], [place] [address]Oqtiv COVID Antigen ([facility])on 57-09-2708Hznoe COV Int NEG Ctl PassNormalScci Hospital LimaComment on above:Performed By: #### [id number] #### [facility] [address], [place] [address]Xivib COV Int POS CtlPassNormFirelands Regional Medical Center Comment on above:Performed By: #### [id number] #### [facility] [address], [place] [address]YGHU-KrA+SARS-CoV-2 (COVID-19) Ag IA.rapid Ql (Resp)Not detectedNormalNot DetectedScci Hospital LimaComment on above:Result Comment: The [employer]??? System for Rapid Detection of SARS-CoV-2 is [...] For in vitro diagnostic use. In the [facility], only for use under an Emergency Use Authorization. In the [facility], this test has not been FDA cleared [...] is terminated or revoked sooner.Performed By: #### [id number] #### [facility] [address], [place] [address]Hdkosuta 0 Hr.on 68-47-1067Pzflpmvq HS<2.53Ugl39.10-27.10S[facility] Hospital LimaComment on above:Result Comment: The 95% CI (Confidence Interval) PPV (Positive Predictive Value) for myocardial infarction in females is 38 pg/mL, in males 51 pg/mL. The results should be used in conjunction with clinical conditions of myocardial infarction. (Access High Sensitivity Troponin I Instructions For Use, [place], May 2018)Performed By: #### [id number] #### [facility] [address], [place] [address]IP with Cult Rflxon 28-41-5476Lpwlhdivh Ql (U)NegativeNormal NegativeScci Hospital LimaComment on above:Performed By: #### [id number] #### [facility] [address], [place] [address]Vtlfnuo (U)TurbidAbnormalClearFPremier Health Miami Valley Hospital South Comment on above:Performed By: #### [id number] #### [facility] [address], [place] [address]Xircb (U)YellowNormalYellowScci Hospital LimaComment on above:Result Comment: Microscopic readings are only performed on those samples that meet specific criteria set forth by [facility].Performed By: #### [id number] #### [facility] [address], [place] [address]Dqrzhvrcct cells.squamous Auto (Urine sed) [#/Area]9-10Invalid Interpretation CodeScci Hospital LimaComment on above:Performed By: #### [id number] #### [facility] [address], [place] [address]Zuemmkj Ql (U)NegativeNormalNegativeScci Hospital Lima Comment on above:Performed By: #### [id number] #### [facility] [address], [place] [address]Nthwvswbtg Auto test strip (U) [Mass/Vol]TraceAbnormalNegative [facility] Hospital LimaComment on above:Performed By: #### [id number] #### [facility] [address], [place] [address]Reogchu Auto test strip Ql (U)NegativeNormalNegativeScci Hospital LimaComment on above:Performed By: #### [id number] #### [facility] [address] [place] [address]Uksnlhetl esterase Auto test strip Ql (U)NegativeNormalNegSelect Medical OhioHealth Rehabilitation HospitalComment on above:Performed By: #### [id number] #### [facility] [address] [place] [address]Ulwbd Auto Ql (U)4+ CD:[id number] Titus Medical CenterComment on above:Performed By: #### [id number] #### [facility] [address] [place] [address]Rqnhwzt Auto test strip Ql (U)NegativeNormalNegUniversity Hospitals Lake West Medical CenterComment on above:Performed By: #### [id number] #### [facility] [address] [place] [address]mZ (U)5.5 [pH]Invalid Interpretation Code5.0-9.0S[facility] Hospital LimaComment on above:Performed By: #### [id number] #### [facility] [address], [place] [address]Khznazz Ql (U)TraceAbnormalNegUniversity Hospitals Lake West Medical Center Comment on above:Performed By: #### [id number] #### [facility] [address] [place] [address]NMN Ql (U)5-67Qandnohh8-0FvlujxPremier Health Miami Valley Hospital SouthComment on above:Performed By: #### [id number] #### [facility] [address] [place] [address]Izwjexuv gravity (U) [Rel density]1.040Invalid Interpretation Code1.005-1.030S[facility] Hospital LimaComment on above:Performed By: #### [id number] #### [facility] [address] [place] [address]Mulxcurklqfe (U) [Mass/Vol]2 mg/dLAbnormalNegativeScci Hospital LimaComment on above:Performed By: #### [id number] #### [facility] [address] [place] [address]DCM Auto (Urine sed) [#/Area]3-66Sbpcixnv1-5VgrowzPremier Health Miami Valley Hospital SouthComment on above:Performed By: #### [id number] #### [facility] [address] [place] [address]Hzby of Urine collection methodClean CatchNoMagruder Memorial HospitalComment on above:Performed By: #### [id number] #### [facility] [address] [place] [address]GGNSFMBKBGDsnlnht By: SYSTEM SYSTEM on 47-67-4292Zrkuhqsfd Ql (U)NegativeNormalNegativemg/dLSAINT FRANCIS [facility]ITAL [facility] UA Auto SSClarity (U)Turbid *ABN* (11/23/24 3:54 AM)Invalid Interpretation CodeClearFINTEGRIS MIAM[facility] [place] UA Auto SSColor (U)Yellow 1 (11/23/24 3:54 AM)NormalYellowSAINT FRANCIS HOSPITAL [facility] UA Auto SSComment on above:Interpretive Data: Microscopic readings are only performed on those samples that meet specific criteria set forth by [facility].Epithelial cells.squamous Auto (Urine sed) [#/Area]9-10 graded/HPFInvalid Interpretation CodeSAINT FRANCIS [facility]OS[facility]ITAL [facility] UA Auto SSGlucose Ql (U)NegativeNormalNegativemg/dLSAINT FRANCIS [facility]OSPITAL [facility] UA Auto SS Hemoglobin Auto test strip [...] UA Auto SSURINALYSISOrdered By: Debra Juan on 09-52-1329GH Spec DescClean Catch (11/23/24 3:54 AM)NormalFT UA Auto SSeGFRon 54-73-9172yNQH309 mL/min/1.73 m2 Normal>=59Fisher [facility] CampusComment on above:Performed By: #### [id number] #### [facility] [address], [place] [address]Wvocxvdy Cervical or vaginal smear or scraping studyon 11-12-6778YDNU HealthcareAlanine aminotransferase [Enzymatic activity/volume] in Serum or PlasmaOrdered By: Elizabeth Cruz on 56-80-5941KZZ [Catalytic activity/Vol]19 U/L7-52Prom[facility] HospitalAlbumin [Mass/volume] in Serum or Plasma by Bromocresol green (BCG) dye binding methoOrdered By: Elizabeth Cruz on 32-17-3424Tpikgwm BCG dye [Mass/Vol]4.2 g/dL3.5-5.7FKettering Health SpringfieldAlkaline phosphatase [Enzymatic activity/volume] in Serum or PlasmaOrdered By: Elizabeth Cruz on 99-58-2662GPH [Catalytic activity/Vol]75 U/K42-401OgxgxdoicPromedica Toledo HospitalAspartate aminotransferase [Enzymatic activity/volume] in Serum or PlasmaOrdered By: Elizabeth Cruz on 64-12-4163UGE [Catalytic activity/Vol]12 U/X16-87SdwsdmskkPromedica Toledo HospitalBasophils Auto (Bld) [#/Vol]Ordered By: Elizabeth Cruz on 40-66-3761Hyjfknrab (Bld) [#/Vol]0.1 10*3/uL0.0-0.2FKettering Health SpringfieldBasophils/100 WBC Auto (Bld)Ordered By: Elizabeth Cruz on 28-23-7088Wnmbokugm/100 WBC (Bld)1.1 %. [facility] HospitalBilirubin.total [Mass/volume] in Serum or PlasmaOrdered By: Elizabeth Cruz on 25-10-1162Sojravooe [Mass/Vol]0.4 mg/dL 0.3-1.0Prom[facility] HospitalCalcium [Mass/volume] in Serum or Plasma Ordered By: Elizabeth Cruz on 03-11-1622Mpgtyzu [Mass/Vol]9.4 mg/dL8.6-10.3 [facility] HospitalCarbon dioxide, total [Moles/volume] in Serum or PlasmaOrdered By: Elizabeth Cruz on 04-76-8641JI1 [Moles/Vol]27.3 mmol/L 21.0-31.0Prom[facility]edo HospitalChloride [Moles/volume] in Serum or PlasmaOrdered By: Elizabeth Cruz on 49-99-9353Kfinfbii [Moles/Vol]107 mmol/L 98-107Prom[facility]edo HospitalCholesterol [Mass/volume] in Serum or PlasmaOrdered By: Elizabeth Cruz on 32-82-5012Dspirfhlfmy [Mass/Vol]196 mg/dL 140-200Promedica Toledo HospitalComment on above:Chol less than 200 mg/dl low riskChol 201-239 mg/dl borderline riskChol 240 mg/dl and greater high riskCholesterol in LDL Calc [Mass/Vol]Ordered By: Elizabeth Cruz on 12-28-2023 Cholesterol in LDL [Mass/Vol]113 mg/dL0-100[facility] Comment on above:LDL ATP III CLASSIFICATIONLDL less than 100 mg/dL OptimalLDL 100-129 mg/dL Near or above xatgqgbZTD869-866 mg/dL Borderline highLDL 160-189 mg/dL HighLDL greater than 189 mg/dL Very highCholesterol in VLDL Calc [Mass/Vol]Ordered By: Elizabeth Cruz on 18-63-8640Gkspjhjnxwy in VLDL [Mass/Vol] 39 mg/dLPromedica Toledo HospitalCreatinine [Mass/volume] in Serum or PlasmaOrdered By: Elizabeth Cruz on 49-64-1081Itdocezxlu [Mass/Vol]0.58 mg/dL 0.60-1.20Prom[facility] HospitalEosinophils Auto (Bld) [#/Vol]Ordered By: Elizabeth Cruz on 68-73-0891Rbuqzmyihoe (Bld) [#/Vol]0.2 10*3/uL0.0-0.45 [facility] HospitalEosinophils/100 WBC Auto (Bld)Ordered By: Elizabeth Cruz on 91-07-2764Guruquxpnwn/100 WBC (Bld)2.3 %.[facility] HospitalErythrocyte distribution width Auto (RBC) [Ratio]Ordered By: Elizabeth Cruz on 30-12-0777Jhuprxalyuz distribution width (RBC) [Ratio]14.4 % 11.9-15.3FKettering Health SpringfieldGlobulin Calc (S) [Mass/Vol]Ordered By: Elizabeth Cruz on 21-33-8644Hlqrnyoi (S) [Mass/Vol]2.9 g/dLPromedica Toledo HospitalGlucose [Mass/volume] in Serum or PlasmaOrdered By: Elizabeth Cruz on 54-88-0778Xdqlmqp [Mass/Vol]85 mg/bS40-850BhtllpwkzPromedica Toledo HospitalHematocrit Auto (Bld) [Volume fraction]Ordered By: Elizabeth Cruz on 18-58-2869Keqsfsgyzw (Bld) [Volume fraction]42.5 %34.0-46.4FKettering Health SpringfieldHemoglobin [Mass/volume] in BloodOrdered By: Elizabeth Cruz on 26-00-1616Traafvugtr (Bld) [Mass/Vol]13.4 g/dL11.8-15.4FKettering Health SpringfieldLeukocytes [#/volume] corrected for nucleated erythrocytes in Blood by Automated counOrdered By: Elizabeth Cruz on 08-17-9626OSJ corrected for nucl RBC Auto (Bld) [#/Vol]9.6 10*3/uL3.8-11.6FKettering Health Springfield Lymphocytes Auto (Bld) [#/Vol]Ordered By: Elizabeth Cruz on 12-28-2023 Lymphocytes (Bld) [#/Vol]2.9 10*3/uL1.00-4.8[facility] Lymphocytes/100 WBC Auto (Bld)Ordered By: Elizabeth Cruz on 12-28-2023 Lymphocytes/100 WBC (Bld)30.4 %.[facility] HospitalMCH Auto (RBC) [Entitic mass]Ordered By: Elizabeth Cruz on 91-50-6383CZD (RBC) [Entitic mass] 25.8 pg24.7-34.3FKettering Health SpringfieldMCHC Auto (RBC) [Mass/Vol] Ordered By: Elizabeth Cruz on 81-50-4010MVMJ (RBC) [Mass/Vol]31.6 g/dL32.0-35.0 [facility] HospitalMCV Auto (RBC) [Entitic vol]Ordered By: Elizabeth Cruz on 81-06-1781MRI (RBC) [Entitic vol]81.5 tU66-059AawqzoetePromedica Toledo HospitalMonocytes Auto (Bld) [#/Vol]Ordered By: Elizabeth Cruz on 74-71-0923Yzilyclxa (Bld) [#/Vol]0.6 10*3/uL0.0-0.8Prom[facility] HospitalMonocytes/100 WBC Auto (Bld)Ordered By: Elizabeth Cruz on 12-28-2023 Monocytes/100 WBC (Bld)5.9 %.Prom[facility] HospitalNeutrophils Auto (Bld) [#/Vol]Ordered By: Elizabeth Cruz on 01-87-1403Qmenwtwucdp (Bld) [#/Vol] 5.8 10*3/uL1.8-7.7FKettering Health SpringfieldNeutrophils/100 WBC Auto (Bld)Ordered By: Elizabeth Cruz on 40-49-4240Wlpybycdjed/100 WBC (Bld)60.3 %. [facility] HospitalNo Panel InformationOrdered By: Elizabeth Cruz on 69-16-0885Bxfhisknv GFR (CKD-EPI)> 60.0 mL/MinPromedica Toledo HospitalPharmacy Creatinine Clearance (ChemN/AFKettering Health Springfield Nucleated erythrocytes [Presence] in Blood by Automated countOrdered By: Elizabeth Cruz on 79-92-1984Wdtxwfmck RBC Auto Ql (Bld)0.0 /100{WBC}0-0.5 [facility] HospitalPlatelet mean volume Auto (Bld) [Entitic vol] Ordered By: Elizabeth Cruz on 67-07-1813Bczjdcww mean volume (Bld) [Entitic vol] 8.2 fL6.3-10.7FKettering Health SpringfieldPlatelets Auto (Bld) [#/Vol] Ordered By: Elizabeth Cruz on 57-92-8923Kmxzpgunv (Bld) [#/Vol]310 10*3/uL 150-450Prom[facility]ica Toledo HospitalPotassium [Moles/volume] in Serum or PlasmaOrdered By: Elizabeth Cruz on 73-90-8424Ldjvqxgni [Moles/Vol]4.3 mmol/L 3.5-5.1FKettering Health SpringfieldProtein [Mass/volume] in Serum or Plasma Ordered By: Elizabeth Cruz on 47-33-8651Azdnnni [Mass/Vol]7.1 g/dL6.4-8.9 [facility] HospitalRBC Auto (Bld) [#/Vol]Ordered By: Elizabeth Cruz on 66-76-2164RPN (Bld) [#/Vol]5.22 10*6/uL3.60-5.00[facility] Hospitalerum or plasma albumin/globulin mass ratioOrdered By: Elizabeth Cruz on 17-33-9915Fmthequ/Globulin [Mass ratio]1.4 {ratio}[facility] Hospitalerum or plasma anion gap determinationOrdered By: Elizabeth Cruz on 20-02-8224Kvxjm gap [Moles/Vol]10.0 mmol/L6.0-15.0[facility] Hospitalerum or plasma high density lipoprotein (HDL) cholesterol measurement Ordered By: Elizabeth Cruz on 05-63-0289Azwvxiqjuld in HDL [Mass/Vol]44 mg/dL 23-92Prom[facility]ica Toledo HospitalComment on above:HDL CHOL ATP-III CLASSIFICATION Cardiovascular RiskHDL > or equal to 60 mg/dL LOWHDL < 40 mg/dL HIGHSerum or plasma total cholesterol/high density lipoprotein (HDL) cholesterol mass ratOrdered By: Elizabeth Cruz on 29-84-4937Msqybsjtfnm.total/Cholesterol in HDL [Mass ratio]4.5 {ratio}<5.0[facility] Hospitalodium [Moles/volume] in Serum or PlasmaOrdered By: Elizabeth Cruz on 14-00-7005Vfctmk [Moles/Vol]140 mmol/J849-844VxkmrbsuyPromedica Toledo HospitalThyrotropin [Units/volume] in Serum or PlasmaOrdered By: Elizabeth Cruz on 68-35-4666CKK Qn 1.14 m[IU]/L0.45-5.33[facility] HospitalTriglyceride [Mass/volume] in Serum or PlasmaOrdered By: Elizabeth Cruz on 57-26-4890Oyptdmgjbgtm [Mass/Vol]197 mg/dL0-149Prom[facility] Toledo HospitalComment on above:TRIG ATP III CLASSIFICATIONTRIG less than 150 mg/dL NormalTRIG 150-199 mg/dL Borderline highTRIG 200-500 mg/dL High TRIG greater than 500 mg/dL Very highStandard traceable to the Center for Disease Conrtrol and Prevention (CDC) test method.Urea nitrogen [Mass/volume] in Serum or PlasmaOrdered By: Elizabeth Cruz on 18-40-6345Jdff nitrogen [Mass/Vol]12 mg/dL7-25Prom[facility] Toledo HospitalWBC Auto (Bld) [#/Vol]Ordered By: Elizabeth Cruz on 51-88-0213VZO (Bld) [#/Vol]9.6 10*3/uL3.8-11.6FKettering Health SpringfieldCBC W Auto Differential panel (Bld)on 59-78-7986Zbdyawire (Bld) [#/Vol]0.1 10*3/uL0.0 - 0.2 K/uLBON SECOURS ADAMS COUNTY HOSPITALBasophils/100 WBC (Bld)0.6 %[facility] HOSPITALEosinophils (Bld) [#/Vol]0.2 10*3/uL0.0 - 0.7 K/uLBON SECOURS ADAMS COUNTY [facility]OSPITAL Eosinophils/100 WBC (Bld)1.9 %[facility] HOSPITALErythrocyte distribution width (RBC) [Ratio]14.7 %High11.5 - 14.5 %[facility] SECSUBUR[facility] & BRENTWOOD HOSPITALHematocrit (Bld) [Volume fraction]37.6 %37.0 - 47.0 %[facility]SUBUR[facility] & BRENTWOOD HOSPITALHemoglobin (Bld) [Mass/Vol]12.2 g/dL12.0 - 16.0 g/dLBON SECTHE [facility]ENTER HEALTHInterpretation and review of laboratory resultsAbnormalBON SECOURS ADAMS COUNTY HOSPITALLymphocytes (Bld) [#/Vol]3.2 10*3/uL1.0 - 4.8 K/uLBON SECOURS [facility] CLINICY CITY HOSPITALLymphocytes/100 WBC (Bld)26.4 %[facility]ENTERH (RBC) [Entitic mass]26.4 pgLow27.0 - 31.3 pgBON SECOURS [facility]ERSITY H[facility]AN MEDICAL CENTERHC (RBC) [Mass/Vol]32.4 %Low33.0 - 37.0 %[facility]ICAL CENTERV (RBC) [Entitic vol]81.4 fL79.4 - 94.8 fLBON SECSUBURBAN COMMUNITY HOSPITAL & BRENTWOOD HOSPITALMonocytes (Bld) [#/Vol]0.8 10*3/uL0.2 - 0.8 K/uLBON SECOURS [facility]CY HEALTHMonocytes/100 WBC (Bld)6.5 %[facility] HEALTHNeutrophils (Bld) [#/Vol]7.7 10*3/uLHigh1.4 - 6.5 K/uLBON SECOURS MERCY HEALTHPlatelets (Bld) [#/Vol]278 10*3/uL130 - 400 K/uLBON SECOURS MERCY HEALTHRBC (Bld) [#/Vol]4.62 10*6/uLBON SECOURS MERCY HEALTHSegmented neutrophils/100 WBC (Bld)64.6 %[facility] HEALTHWBC (Bld) [#/Vol]12.0 10*3/uLHigh4.8 - 10.8 K/uLBON SECOURS CLEVELAND CLINICY HEALTHBON [facility]ICY HEALTHComprehensive metabolic 2000 panelon 21-50-2256Mfqsskl [Mass/Vol]3.9 g/dL3.5 - 4.6 g/dLBON SECOURS MERCY [...] MDRD (S/P/Bld) [Vol rate/Area]60 - PINFBON SECOURS CLEVELAND CLINICY HEALTHComment on above:Pediatric calculator link https://www.kidney.org/professionals/kdoqi/gfr_calculatorped Effective [...] (S) [Mass/Vol]3.2 g/dL2.3 - 3.5 g/dLBON KINDRED HEALTHCAREGlucose [Mass/Vol]89 mg/dL70 - 99 mg/dLBON KINDRED HEALTHCAREPotassium [Moles/Vol]3.8 mmol/LBON KINDRED HEALTHCAREProtein [Mass/Vol]7.1 g/dL6.3 - 8.0 g/dLBON KINDRED HEALTHCARESodium [Moles/Vol]140 mmol/LBON KINDRED HEALTHCAREUrea nitrogen [Mass/Vol]15 mg/dL6 - 20 mg/dLBON KINDRED HEALTHCARELipaseon 83-35-4851Qtmpfe [Catalytic activity/Vol]23 U/L12 - 95 U/LBON KINDRED HEALTHCARENo Panel Informationon [id number] [facility] SYSTEMCT Creatinineon [id number] and review of laboratory resultsNormalBON [facility] CREATININE WHOLE BLOOD0.6B[facility]GICAL CENTERTroponinon [id number] T.cardiac [Mass/Vol]ng/mL0.000 - 0.010 ng/mL [facility]OSPITALComment on above:Methodology by Troponin T.Troponin T.cardiac [Mass/Vol]on [id number] [facility] ABDOMEN LIMITEDon 99-69-8194Wzgadwbbzihtjm. No gallbladder wall thickening or pericholecystic fluid. [...] Mildly dilated common duct at 8.1 mm. [facility]OSPITALRadiology Study observation (narrative)[facility]ITALUS ABDOMEN LIMITEDOrdered By: Kirsten Pardo on [id number] Work Phone: [phone]-40 PCR (CVDTBH)on 77-83-9431YIYA-CoV-2 (COVID- 19) RNA HILDA+probe Ql (Unsp spec)Not detectedNormalNOT DETECTEDThe St. [facility]'S Medical CenterComment on above:Result Comment: This test is not yet approved or cleared by the [place] FDA. When there are no FDA-approved or cleared tests available, and other criteria are met, FDA can make tests available under an emergency access mechanism called an Emergency Use Authorization (EUA). The EUA for this test is supported by the Air Conditioning Equipment Mechanic of Health and Human Service's (HHS's) declaration [...] consistent with SARS-CoV-2.Performed By: #### CBC #### [facility] [address] [address] [address] Zari Johnston AUTO DIFFon [id number] #0.0 103/ulNormal0.0-0.1The St. [facility]S Medical CenterComment on above:Performed By: #### CBC ####[facility] [address] [address]DrStewart ButcherBasophils/100 WBC (Bld)0.4 %Normal0.2-2.0The [facility]S Medical CenterComment on above:Performed By: #### CBC ####[facility] [address] [address] ChangEO #0.3 103/ulNormal0.0-0.7The St[facility]S Medical CenterComment on above:Performed By: #### CBC ####[facility] [address] [address]Dr.Yilan Richardsonosinophils/100 WBC (Bld)2.9 %Normal 0.9-7.0The [facility] CenterComment on above:Performed By: #### CBC ####[facility] [address] [address]DrStewart Butcher Erythrocyte distribution width (RBC) [Ratio]13.9 %Exhfef88.0-15.0The [facility]. [facility] Hospitalment on above:Performed By: #### CBC ####[facility] Wwmmxrvgsx[address] [place], [place] [address]DrStewart ButcherHematocrit (Bld) [Volume fraction]38.4 %Mtuinu21.0-48.0The [facility] Medical CenterComment on above:Performed By: #### CBC ####[facility] [address] [address]Dr.Zari ButcherHemoglobin (Bld) [Mass/Vol]12.0 g/dL Ffusgj83.0-16.0The [facility] HospitalComment on above:Performed By: #### CBC ####[facility] Qmsarmodoj[address] [place], [place] [address]Dr. Zari ButcherIG #0.03 10e3/ulNormal0.00-0.03The [facility]S Medical CenterComment on above: Performed By: #### CBC ####[facility] Vuuasygnzq[address] [place], [place] [address]Dr.Franchescacarolyn ButcherIG %0.3 %Normal0.0-0.5The [facility]S Medical CenterComment on above:Performed By: #### CBC ####[facility] Hwdebchugj[address] [place], [place] [address]Dr.Franchescacarolyn ChangLYMPH #2.9 103/ulNormal1.2-3.8The [facility]S Medical CenterComment on above:Performed By: #### CBC ####[facility] Qdcciyffyz[address] [place], [place] [address]Dr. Franchescacarolyn HadleyLymphocytes/100 WBC (Bld)30.5 %Lttjco37.5-60.0The [facility] Comment on above:Performed By: #### CBC ####[facility] Jwqumlrajm[address] [place], [place] [address]Dr.Zari ButcherMANUAL DIFF REQNONormalThe St. [facility]'S Medical CenterComment on above:Performed By: #### CBC ####[facility] Wgbvocgezc2[address] [place], [place] [address]Dr.Zari ButcherGRACIE SQU[facility] (RBC) [Entitic mass]25.8 pgCritically low26.7-34.0The [facility] Medical CenterComment on above:Performed By: #### CBC ####[facility] Wljzysttyv19[address] [place], [place] [address]Dr.Zari ButcherNYU LANG[facility] (RBC) [Mass/Vol]31.3 g/dLNormal 29.9-35.2The [facility] Medical CenterComment on above:Performed By: #### CBC ####[facility] Qombakbayk54[address] [place], [place] [address]Dr. Franchescacarolyn ButcherMCV (RBC) [Entitic vol]82.4 tIQmggso63.0-99.0The [facility] Comment on above:Performed By: #### CBC ####[facility] Oexzclcrvg[address] [place], [place] [address]Dr.Zari ButcherMONO #0.5 103/ulNormal0.3-0.[address] [facility] Medical CenterComment on above:Performed By: #### CBC ####[facility] Fnuvjmnndp6789[address] [place], [place] [address]Dr.Zari Butcher Monocytes/100 WBC (Bld)5.5 %Normal1.7-12.0The [facility] Medical CenterComment on above: Performed By: #### CBC ####[facility] Kpfcfoqgcg[address] [place], [place] [address]Dr.Zari ButcherNEUT #5.7 103/ulNormal1.4-6.5The [facility]S Medical CenterComment on above:Performed By: #### CBC ####[facility] Whevqnngtp95[address] [place], [place] [address]Dr.Zari ButcherNeutrophils/100 WBC (Bld)60.4 %Famdjs63.0-75.0The [facility]S Medical CenterComment on above:Performed By: #### CBC ####[facility] Zqenjsmhvd[address] [place], [place] [address]Dr.Zari ButcherPlatelet mean volume (Bld) [Entitic vol]10.3 fLNormal9.5-13.[address] [facility] CenterComment on above:Performed By: #### CBC ####[facility] Ryjbxovqaz[address] [place], [place] [address]Dr.Zari MejpzKSM097 103/pdEebfqr304-263Qme St[facility]S Medical CenterComment on above:Performed By: #### CBC ####[facility] Mapwjoatuh17[address] [place], [place] [address]DrFrancesca ButcherRBC4.66 106/ulNormal4.20-5.40The [facility]S Medical CenterComment on above: Performed By: #### CBC ####[facility] [address] [address]DrStewart ButcherWBC9.5 103/ulNormal4.0-11.0The [facility] Medical CenterComment on above:Performed By: #### CBC ####[facility] [address] [address]DrStewart ButcherCovid-19 PCR (CVDTBH)on 32-08-0128TYPX-CoV-2 (COVID-19) RNA HILDA+probe Ql (Unsp spec)Not detectedNormalNOT DETECTEDThe St. [facility]S Medical CenterComhelen newberry [facility] on above:Result Comment: This test is not yet approved or cleared by the [place] FDA. When there are no FDA-approved or cleared tests available, and other criteria are met, FDA can make tests available under an emergency access mechanism called an Emergency Use Authorization (EUA). The EUA for this test is supported by the Air Conditioning Equipment Mechanic of Health and Human Service's (HHS's) declaration [...] consistent with SARS-CoV-2.Performed By: #### CVDTBH #### [facility] [id number] Zari ButcherPREJuma QUANT HCGon 22-65-7419BMV QUANT<1NormalFairfield Medical Center Comment on above:Performed By: #### PREGQNT ####[facility] [address] [address]Dr. Zari Nunez RANGESEE BELOWNoOur Lady of Mercy Hospital - AndersonComment on above:Result Comment: 5-50 0.2-1 WEEK 50-500 1-2 WEEKS 100-5,000 2-3 WEEKS 500-10,000 3-4 WEEKS 1,000-50,000 4-5 WEEKS 10,000- 100,000 5-6 WEEKS 15,000-200,000 6-8 WEEKS 10,000-100,000 2-3 MONTHSPerformed By: #### PREGQNT ####[facility] [address] [address]Dr. Zari Tovar AUTO DIFFon 45-11-1820PVCF #0.0 103/ulNormal0.0-0.1 [facility] CenterComment on above:Performed By: #### CBC #### [facility] [address] [address] [address] Zari ButcherBasophils/100 WBC (Bld)0.3 %Normal0.2-2.0[facility] Comment on above:Performed By: #### CBC #### [facility] [address] [address] [address] Zari Turner #0.8 103/ulCritically high0.0-0.7The [facility]S Medical CenterComment on above:Performed By: #### CBC #### [facility] [address] [address] [address] Zari Richardsonosinophils/100 WBC (Bld)7.5 %Critically high0.9-7.0[facility] CenterComment on above:Performed By: #### CBC #### [facility] [address] [address] [address] Zari Richardsonrythrocyte distribution width (RBC) [Ratio]14.5 %Azbstc13.0-15.[address] [facility] Medical CenterComment on above:Performed By: #### CBC #### [facility] [address] [address] [address] Zari ButcherHematocrit (Bld) [Volume fraction]27.9 %Critically low36.0-48.[address] [facility] Medical CenterComment on above:Performed By: #### CBC #### [facility] [address] [address] [address] Zari ButcherHemoglobin (Bld) [Mass/Vol]9.0 g/dLCritically low12.0-16.0The [facility]S Medical CenterComment on above:Performed By: #### CBC #### [facility] [address] [place] [address] Dr. Zari Nash #0.06 10e3/ulCritically high0.00-0.03The [facility] Comment on above:Performed By: #### CBC #### [facility] [address] [place] [address] Dr. Zari Nash %0.6 %Critically high0.0-0.5The [facility]S Medical CenterComment on above:Performed By: #### CBC #### [facility] [address] [place] [address] Dr. Zari Chavez #2.6 103/ulNormal1.2-3.8The [facility]S Medical CenterComment on above:Performed By: #### CBC #### [facility] [address] [place] [address] Dr. Zari Hollandhocytes/100 WBC (Bld)24.3 %Lttnzi66.5-60.0The [facility]S Medical CenterComment on above:Performed By: #### CBC #### [facility] [address] [place] [address] Dr. Zari SmallUAL DIFF REQNONormalThe St. [facility]'S Medical CenterComment on above: Performed By: #### CBC #### [facility] [address] [place] [address] Dr. Zari Herrera (RBC) [Entitic mass]28.[address] zgCbnbnw97.7-34.0The [facility]S Medical CenterComment on above:Performed By: #### CBC #### [facility] [address] [place] [address] Dr. Zari Herrera (RBC) [Mass/Vol]32.3 g/kXAstcmc92.9-35.2The [facility] CenterComment on above:Performed By: #### CBC #### [facility] [address] [address] [address] Zari HerreraV (RBC) [Entitic vol]86.[address] dRKxwtaa18.0-99.0The [facility]S Medical CenterComment on above:Performed By: #### CBC #### [facility] [address] [place] [address] Dr. Zari Alvarez #0.6 103/ulNormal0.3-0.8The [facility] Medical CenterComment on above:Performed By: #### CBC #### [facility] [address] [place] [address] Dr. Zari Bennettocytes/100 WBC (Bld)5.3 %Normal1.7-12.0The [facility] Comment on above:Performed By: #### CBC #### [facility] [address] [place] [address] Dr. Zari Miller #6.7 103/ulCritically high1.4-6.5The [facility] Comment on above:Performed By: #### CBC #### [facility] [address] [place] [address] Dr. Zari Faustinutrophils/100 WBC (Bld)62.0 %Xmchuf14.0-75.0The [facility] Medical CenterComment on above:Performed By: #### CBC #### [facility] [address] [place] [address] Dr. Zari Colemanlet mean volume (Bld) [Entitic vol]10.5 fLNormal9.5-13.5The [facility] CenterComment on above:Performed By: #### CBC #### [facility] [address] [place] [address] Dr. Zari ButcherPLT286 103/vgTmmpwa182-707Foo St. [facility]S Medical CenterComment on above: Performed By: #### CBC #### [facility] [address] [place] [address] Dr. Zari ButcherRBC3.21 106/ulCritically low4.20-5.40The [facility] CenterComment on above:Performed By: #### CBC #### [facility] [address] [address] [address] Zari ButcherWBC10.7 103/ulNormal4.0-11.0The [facility] CenterComment on above:Performed By: #### CBC #### [facility] [address] [address] [address] Zari ButcherPROF CHEM 8 (BAS METB)on 75-62-6151Tnouq gap [Moles/Vol]11.1 mmol/LNormalThe [facility] HospitalComment on above:Performed By: #### BMP ####[facility] [address] [address]Dr. Zari ChangCalcium [Mass/Vol]8.4 mg/dLCritically low8.5-10.1The [facility] CenterComment on above:Performed By: #### BMP ####[facility] [address]oxucpqoar[address] [place], [place] [address]Dr.Zari ChangChloride [Moles/Vol]105 mmol/CAymjuh14-300Gux St. [facility]S Medical CenterComment on above:Performed By: #### BMP ####[facility] Mkptcnpltk[address] [place], [place] [address]Dr.Zari ChangCO2 [Moles/Vol]26.2 mmol/FOrtiml42.0-32.0The [facility] CenterComment on above:Performed By: #### BMP ####[facility] [address]plaeywi[address] [place], [place] [address]Dr.Zari ChangCreatinine [Mass/Vol]0.49 mg/dLCritically low0.55-1.02The [facility] CenterComment on above:Performed By: #### BMP ####[facility] Hufnzhwezd[address] [place], [place] [address]Dr.Franchescalan ChangEGFR-AF FRENCH>60Normal>=60The [facility] Medical CenterComment on above:Performed By: #### BMP ####[facility] [address]dzhajxesa[address] [place], [place] [address]Dr.Franchescalan ChangEGFR-NON AF FRENCH>60Normal>=60The [facility] HospitalComment on above:Performed By: #### BMP ####[facility] [address] [address]Dr. Zari ChangGlucose [Mass/Vol]75 mg/tITaxozp29-536Unk St[facility]S Medical CenterComment on above:Performed By: #### BMP ####[facility] [address] [address]Dr.Zari ChangPotassium [Moles/Vol]3.3 mmol/L Critically low3.5-5.1The [facility] Medical CenterComment on above:Performed By: #### BMP ####[facility] [address] [address]Dr. Zari ChangSodium [Moles/Vol]139 mmol/ZPnztse791-075Cfe St[facility]S Medical CenterComment on above:Performed By: #### BMP ####[facility] [address] [address]Dr.Zari ChangUrea nitrogen [Mass/Vol]7.0 mg/dLNormal 7.0-18.0The [facility] CenterComment on above:Performed By: #### BMP ####[facility] [address] [address]DrFrancesca Hameed ChangUrea nitrogen/Creatinine [Mass ratio]14.3 mg/mgNormalThe St. [facility]'S Medical CenterComment on above:Performed By: #### BMP ####[facility] [address] [address]Dr.Yilan JohnstonC AUTO DIFFon 81-48-7263NUIH #0.0 103/ulNormal0.0-0.1The [facility] CenterComment on above: Performed By: #### CBC #### [facility] [address] [address] [address] Zari Holdenphils/100 WBC (Bld)0.3 %Normal0.2-2.0The [facility] Comment on above:Performed By: #### CBC #### [facility] [address] [address] [address] Yilan ChangEO #0.2 103/ulNormal0.0-0.7The [facility] CenterComment on above: Performed By: #### CBC #### [facility] [address] [place] [address] Dr. Zari Richardsonosinophils/100 WBC (Bld)1.5 %Normal0.9-7.0[facility] Comment on above:Performed By: #### CBC #### [facility] [address] [place] [address] Dr. Zari Richardsonrythrocyte distribution width (RBC) [Ratio]14.9 %Pqamwe79.0-15.[address] [facility] CenterComment on above:Performed By: #### CBC #### [facility] [address] [place] [address] Dr. Zari ButcherHematocrit (Bld) [Volume fraction]27.3 %Critically low36.0-48.[address] [facility] CenterComment on above:Performed By: #### CBC #### [facility] [address] [place] [address] Dr. Zari ButcherHemoglobin (Bld) [Mass/Vol]8.7 g/dLCritically low12.0-16.0The [facility] CenterComment on above:Performed By: #### CBC #### [facility] [address] [place] [address] Dr. Zari Nash #0.05 10e3/ulCritically high0.00-0.03The [facility] Comment on above:Performed By: #### CBC #### [facility] [address] [place] [address] Dr. Zari Nash %0.4 %Normal0.0-0.5The [facility] CenterComment on above: Performed By: #### CBC #### [facility] [address] [place] [address] Dr. Zari Chavez #2.9 103/ulNormal1.2-3.8The [facility] CenterComment on above:Performed By: #### CBC #### [facility] [address] [place] [address] Dr. Zari Brionesmphocytes/100 WBC (Bld)21.6 %Chyiww98.5-60.0The [facility] CenterComment on above:Performed By: #### CBC #### [facility] [address] [place] [address] Dr. Zari Green DIFF REQNONormalThe St. [facility]'S Medical CenterComment on above: Performed By: #### CBC #### [facility] [address] [place] [address] Dr. Zari Herrera (RBC) [Entitic mass]27.5 sfNyldcj16.7-34.0The [facility] CenterComment on above:Performed By: #### CBC #### [facility] [address] [place] [address] Dr. Zari Herrera (RBC) [Mass/Vol]31.9 g/cSVyvxmm59.9-35.2The [facility] CenterComment on above:Performed By: #### CBC #### [facility] [address] [place] [address] Dr. Zari Bertrand (RBC) [Entitic vol]86.[address] kBXzqdkp84.0-99.0The [facility] CenterComment on above:Performed By: #### CBC #### [facility] [address] [place] [address] Dr. Zari Alvarez #0.7 103/ulNormal0.3-0.8The [facility] CenterComment on above:Performed By: #### CBC #### [facility] [address] [place] [address] Dr. Zari Bennettocytes/100 WBC (Bld)5.5 %Normal1.7-12.0[facility] Comment on above:Performed By: #### CBC #### [facility] [address] [place] [address] Dr. Zari Miller #9.4 103/ulCritically high1.4-6.5The [facility] Comment on above:Performed By: #### CBC #### [facility] [address] [place] [address] Dr. Zari Faustinutrophils/100 WBC (Bld)70.7 %Hmmicw42.0-75.0The [facility] CenterComment on above:Performed By: #### CBC #### [facility] [address] [place] [address] Dr. Zari ButcherPlatelet mean volume (Bld) [Entitic vol]10.8 fLNormal9.5-13.5The [facility] CenterComment on above:Performed By: #### CBC #### [facility] [address] [place] [address] Dr. Zari ButcherPLT203 103/kjGcinpy916-231Bkw St. [facility]S Medical CenterComment on above: Performed By: #### CBC #### [facility] [address] [place] [address] Dr. Zari ButcherRBC3.16 106/ulCritically low4.20-5.40The [facility] CenterComment on above:Performed By: #### CBC #### [facility] [address] [place] [address] Dr. Zari ButcherWBC13.3 103/ulCritically high4.0-11.0The [facility] CenterComment on above:Performed By: #### CBC #### [facility] [address] [place] [address] Dr. Zari Tovar AUTO DIFFon 22-30-1611DTYI #0.1 103/ulNormal0.0-0.1The [facility] CenterComment on above:Performed By: #### CBC #### [facility] [address] [place] [address] Dr. Zari ButcherBasophils/100 WBC (Bld)0.4 %Normal0.2-2.0The [facility] Comment on above:Performed By: #### CBC #### [facility] [address] [place] [address] Dr. Hameed ChangEO #0.2 103/ulNormal0.0-0.7The [facility] CenterComment on above: Performed By: #### CBC #### [facility] [address] [address] [address] Zari Richardsonosinophils/100 WBC (Bld)1.3 %Normal0.9-7.0The [facility] Comment on above:Performed By: #### CBC #### [facility] [address] [place] [address] Dr. Zari Richardsonrythrocyte distribution width (RBC) [Ratio]14.6 %Yvytmd42.0-15.[address] [facility] CenterComment on above:Performed By: #### CBC #### [facility] [address] [place] [address] Dr. Zari ButcherHematocrit (Bld) [Volume fraction]37.8 %Mqlwxm18.0-48.0The [facility] CenterComment on above:Performed By: #### CBC #### [facility] [address] [place] [address] Dr. Zari ButcherHemoglobin (Bld) [Mass/Vol]12.4 g/wKGhgouz74.0-16.0The [facility] CenterComment on above:Performed By: #### CBC #### [facility] [address] [place] [address] Dr. Zari Nash #0.04 10e3/ulCritically high0.00-0.03The [facility] Comment on above:Performed By: #### CBC #### [facility] [address] [place] [address] Dr. Zari Nash %0.3 %Normal0.0-0.5The [facility] CenterComment on above: Performed By: #### CBC #### [facility] [address] [place] [address] Dr. Zari HollandH #3.2 103/ulNormal1.2-3.8The [facility] CenterComment on above:Performed By: #### CBC #### [facility] [address] [place] [address] Dr. Zari Brionesmphocytes/100 WBC (Bld)24.6 %Cnvarm23.5-60.0The [facility] HospitalComment on above:Performed By: #### CBC #### [facility] [address] [address] [address] Zari Green DIFF REQNONormalThe St. [facility] Hospitalment on above: Performed By: #### CBC #### [facility] [address] [address] [address] Zari Herrera (RBC) [Entitic mass]27.[address] dkHemlko57.7-34.0The [facility] CenterComment on above:Performed By: #### CBC #### [facility] [address] [place] [address] Dr. Zari Herrera (RBC) [Mass/Vol]32.8 g/lSLjzypb79.9-35.2The [facility] on above:Performed By: #### CBC #### [facility] [address] [place] [address] Dr. Zari Herrera (RBC) [Entitic vol]84.[address]Zogbrt49.0-99.0The [facility] Hospitalment on above:Performed By: #### CBC #### [facility] [address] [place] [address] Dr. Zari Alvarez #0.8 103/ulNormal0.3-0.8The [facility] on above:Performed By: #### CBC #### [facility] [address] [place] [address] Dr. Zari Bennettocytes/100 WBC (Bld)6.3 %Normal1.7-12.0[facility] Comment on above:Performed By: #### CBC #### [facility] [address] [address] [address] Zari Miller #8.7 103/ulCritically high1.4-6.5The [facility] Comment on above:Performed By: #### CBC #### [facility] [address] [place] [address] Dr. Zari Faustinutrophils/100 WBC (Bld)67.1 %Buowen63.0-75.0[facility] on above:Performed By: #### CBC #### [facility] [address] [address] [address] Zari Pozo mean volume (Bld) [Entitic vol]10.9 fLNormal9.5-13.5The [facility] on above:Performed By: #### CBC #### [facility] [address] [address] [address] Zari ButcherPLT280 103/vzPudcne071-161[facility] on above: Performed By: #### CBC #### [facility] [address] [place] [address] Dr. Zari ButcherRBC4.46 106/ulNormal4.20-5.40[facility] on above:Performed By: #### CBC #### [facility] [address] [place] [address] Dr. Zari ButcherWBC13.0 103/ulCritically high4.0-11.0The [facility] on above:Performed By: #### CBC #### [facility] [address] [place] [address] Dr. Zari Gonzalez URINEon 17-03-2641VWNYNCK URINECulture Observations: NO GROWTH.NormalProMedica Bay Park Hospital on above:Performed By: #### URCX #### [facility] [address] [place] [address] Dr. Zari ButcherDRUG SCREEN RAPID (URINE)on 11-96-7425EFODczooalaSedfhcUSKDBLWR [facility] on above:Performed By: #### RUBIGG #### [facility] [address] [place] [address] Dr. Zari ButcherBARNegativeNormalNEGATIVEProMedica Bay Park Hospital on above: Performed By: #### RUBIGG #### [facility] [address] [place] [address] Dr. Zari DelongPNegativeNormalNEGATIVEProMedica Bay Park Hospital on above: Performed By: #### RUBIGG #### [facility] Laboratory [address] [address] [address] Zari ButcherBZONegativeNormalNEGATIVEFairfield Medical CenterComment on above: Performed By: #### RUBIGG #### [facility] Laboratory [address] [address] [address] Zari ButcherCOCNegativeNormalNEGATIVEFairfield Medical CenterComment on above: Performed By: #### RUBIGG #### [facility] Laboratory [address] [address] [address] Zari AguilarThe Surgical Hospital at SouthwoodsComment on above: Result Comment: AMP (Amphetamine): 500ng/mL, BAR (Barbituates): 200 ng/mL, BZO (Benzodiazepines): 150 ng/mL, BUP (Buprenorphine): 10 ng/mL, AILYN (Cocaine): 150 ng/mL, mAMP (Methamphetamine): 500 ng/mL, MTD (Methadone): 200 ng/mL, OPI (Opiates): 100 ng/mL, OXY (Oxycodone): 100 ng/mL, PCP (Phencyclidine): 25 ng/mL, PPX (Propoxyphene): 300 ng/mL, THC (Cannabinoids): 50 ng/mL, TCA (Trycyclic Antidepressants): 300 ng/mLPerformed By: #### RUBIGG #### [facility] Laboratory [address] [place] [address] Dr. Zari ButcherDRUG CUT HEADERDRUG CLASS TEST SYSTEM CUT-OFF CONCENTRATIONS ARE FOLLOWS:NormalThe St. [facility]S Medical CenterComhelen [facility] on above:Performed By: #### RUBIGG #### [facility] Laboratory [address] [place] [address] Dr. Zari ButchermAMPNegativeNormalNEGATIVEFairfield Medical CenterComhelen [facility] on above: Performed By: #### RUBIGG #### [facility] Laboratory [address] [place] [address] Dr. Zari ButcherMTDNegativeNormalNEGATIVEFairfield Medical CenterComhelen [facility] on above: Performed By: #### PURVIIGG #### [facility] Laboratory [address] [address] [address] Zari ButcherOPINegativeNormalNEGATIVEFairfield Medical CenterComment on above: Performed By: #### RUBIGG #### [facility] Laboratory [address] [place] [address] Dr. Zari ButcherOXYNegativeNormalNEGATIVEFairfield Medical CenterComhelen [facility] on above: Performed By: #### RUBIGG #### [facility] Laboratory [address] [place] [address] Dr. Zari ButcherPCPNegativeNormalNEGATIVEProMedica Bay Park Hospital on above: Performed By: #### RUBIGG #### [facility] Laboratory [address] [place] [address] Dr. Zari ButcherPPXNegativeNormalNEGATIVEProMedica Bay Park Hospital on above: Performed By: #### RUBIGG #### [facility] Laboratory [address] [place] [address] Dr. Zari ButcherTCANegativeNormalNEGATIVEProMedica Bay Park Hospital on above: Performed By: #### RUBIGG #### [facility] Laboratory [address] [place] [address] Dr. Zari ButcherTHCNegativeNormalNEGATIVEProMedica Bay Park Hospital on above: Performed By: #### RUBIGG #### [facility] Laboratory [address] [place] [address] Dr. Zari ButcherTYPE AND SCREENon [id number] AND SCREENNegativeNormalThe [facility] on above:Performed By: #### TNS ####[facility] [address] [address]Dr.Yilan Anaya (CLEAN/CATCH) FLOTATION TENDER/MICRO IF IND.on [id number] Ql (U)NegativeNormal NEGATIVEFairfield Medical CenterComhelen [facility] on above:Performed By: #### CVDTBH #### [facility] Laboratory [address] [place] [address] Dr. Zari Colbertarity (U)CLEARNormalCLEARFairfield Medical CenterComment on above: Performed By: #### CVDTBH #### [facility] Laboratory [address] [address] [address] Zari Oroscolor (U)LT. YELLOWNormalYELLOWFairfield Medical CenterComment on above:Performed By: #### CVDTBH #### [facility] Laboratory [address] [address] [address] Zari ButcherGlucose Ql (U)NegativeNormalNEGATIVEFairfield Medical CenterComment on above:Performed By: #### CVDTBH #### [facility] Laboratory [address] [address] [address] Zari ButcherHemoglobin Ql (U)NegativeNormalNEGPremier Health [facility] Comment on above:Performed By: #### CVDTBH #### [facility] Laboratory [address] [address] [address] Zari ButcherKetones Ql (U)TRACEAbnormalNEGATIVEFairfield Medical CenterComment on above:Performed By: #### CVDTBH #### [facility] Laboratory [address] [address] [address] Zari ButcherLEUKOCYTESMODERATEAbnormalNEGATIVEFairfield Medical CenterComment on above:Performed By: #### CVDTBH #### [facility] Laboratory [address] [place] [address] Dr. Zari ButcherNitrite Ql (U)NegativeNormalNEGATIVEFairfield Medical CenterComment on above:Performed By: #### CVDTBH #### [facility] Laboratory [address] [address] [address] Zari ButcherpH (U)6.5 [pH]Normal5-9The St. [facility]S Medical CenterComment on above: Performed By: #### CVDTBH #### [facility] Laboratory [address] [address] [address] Zari ButcherSPEC GRAVITY1.020Hmavbf0.005-<=1.025The St. [facility]S Medical CenterComment on above:Performed By: #### CVDTBH #### [facility] Laboratory [address] [address] [address] Zari ButcherUA PROTEINNegativeNormalNEGUNC HEALTH ROCKINGHAM/ TRACEFairfield Medical Center Comment on above:Performed By: #### CVDTBH #### [facility] Laboratory [address] [address] [address] Zari GEORGE INDINDICATEDMiddletown HospitalComment on above: Performed By: #### CVDTBH #### [facility] Laboratory [address] [address] [address] Zari Jorge Qn (U)1.0 {Ashvin'U}/dLNormal0.2 - 1.0The [facility]S Medical CenterComment on above:Performed By: #### CVDTBH #### [facility] Laboratory [address] [address] [address] Zari DENNEY ONLYon [id number]M SEEN [facility] CenterComment on above:Performed By: #### CVDTBH #### [facility] Laboratory [address] [address] [address] Zari Biswas identified Cx Nom (U)INDICATEDMiddletown HospitalComment on above:Performed By: #### CVDTBH #### [facility] Laboratory [address] [address] [address] Zari Canales SEENNormalNONE SEENFlower Hospitalment on above:Performed By: #### CVDTBH #### [facility] Laboratory [address] [address] [address] Zari Lynch LM Nom (Urine sed)NONE SEENNormalNONE SEENProMedica Bay Park Hospital on above:Performed By: #### CVDTBH #### [facility] Laboratory [address] [address] [address] Hameed ChangEpithelial cells LM Ql (Urine sed)MANYAbnormalNONE SEEN /RAREThe [facility] on above:Performed By: #### CVDTBH #### [facility] Laboratory [address] [address] [address] Zari McclellanLAbnormalNONE SEENFairfield Medical CenterComhelen [facility]berry [facility] hospital on above:Performed By: #### CVDTBH #### [facility] Laboratory [address] [place] [address] Dr. Zari ButcherVvodcOYF0-3Nmtdsugs0-4Czp St[facility]S Medical CenterComment on above:Performed By: #### CVDTBH #### [facility] Laboratory [address] [place] [address] Dr. Zari ButcherIzthiHSG03-18ZvpvictvKNMK SEENThe St. [facility]S Medical CenterComment on above: Performed By: #### CVDTBH #### [facility] Laboratory [address] [place] [address] Dr. Zari ButcherCovid-19 PCR ([facility])on 62-68-1930SWZS-CoV-2 (COVID-19) RNA HILDA+probe Ql (Unsp spec)Not detectedNormalNOT DETECTEDThe [facility] Comment on above:Result Comment: When diagnostic testing [...] for this test is supported by the Air Conditioning Equipment Mechanic of Health and Human Service's declaration that [...] longer be used).Performed By: #### CVDTBH #### [facility] Laboratory [address] [place] [address] Dr. Zari ButcherVAGINITIS/VAGINOSIS DNA PROBEon [id number] speciesNegative NormalNegativeThe St. [facility]'S Medical CenterComment on above:Performed By: #### CBC #### [facility] Laboratory [address] [place] [address] Dr. Zari Merritterella vaginalisPositiveAbnormalNegativeThe St. Mary'S Medical CenterComment on above:Performed By: #### CBC #### [facility] Laboratory [address] [address] [address] Zari ButcherTrichomonas vaginalisNegativeNormalNegativeThe [facility] Comment on above:Performed By: #### CBC #### [facility] Laboratory [address] [address] [address] Zari ButcherGROUP B STREP CULTUREon 08-29-2022. agalactiae Ag Ql (Unsp spec) Culture Observations: NEGATIVE FOR GROUP B STREPTOCOCCUS.NormalThe St. [facility]'S Medical CenterComment on above: Performed By: #### GBSCX #### [facility] Laboratory [address] [address] [address] Zari ButcherAMYLASEon [id number] [Catalytic activity/Vol]47 U/LNormal 25-115The St. [facility]S Medical CenterComment on above:Performed By: #### CMP, MEGHA, LIPA ####[facility] [address] [address]Dr. Zari ButcherCBC AUTO DIFFon [id number] #0.0 103/ulNormal0.0-0.1The St. [facility]S Medical CenterComment on above:Performed By: #### CBC ####[facility] [address] [address]Dr.Yilan ChangBasophils/100 WBC (Bld)0.2 %Normal0.2-2.0The St[facility]S Medical CenterComment on above:Performed By: #### CBC ####[facility] [address] [address]Dr.Yilan ChangEO #0.2 103/ulNormal0.0-0.7The St[facility]S Medical CenterComment on above:Performed By: #### CBC ####[facility] [address] [address]Dr.Yilan ChangEosinophils/100 WBC (Bld)1.5 %Normal 0.9-7.0The [facility]S Medical CenterComment on above:Performed By: #### CBC ####[facility] [address] [place], [place] [address]Dr.Franchescacarolyn Butcher Erythrocyte distribution width (RBC) [Ratio]14.2 %Nefatz40.0-15.0The St. [facility]S Medical CenterComment on above:Performed By: #### CBC ####[facility] [address] [place], [place] [address]Dr.Franchescacarolyn HadleyHematocrit (Bld) [Volume fraction]35.6 %Critically low36.0-48.0The [facility] HospitalComment on above:Performed By: #### CBC ####[facility] [address] [place], [place] [address]Dr.Zari ButcherHemoglobin (Bld) [Mass/Vol]11.3 g/dL Critically low12.0-16.0The St[facility]S Medical CenterComment on above:Performed By: #### CBC ####[facility] [address] [place], [place] [address]Dr. Zari ButcherIG #0.04 10e3/ulCritically high0.00-0.03The St[facility] CenterComment on above:Performed By: #### CBC ####[facility] Hxyef[address] [place], [place] [address]Dr.Zari ButcherIG %0.3 %Normal0.0-0.5The [facility]S Medical CenterComment on above:Performed By: #### CBC ####[facility] Fabermmeiq[address] [place], [place] [address]Dr.Zari ButcherLYMPH #1.7 103/ulNormal1.2-3.8The St[facility]S Medical CenterComment on above:Performed By: #### CBC ####[facility] Adztgu[address] [place], [place] [address]Dr. Zari ButcherLymphocytes/100 WBC (Bld)14.5 %Critically low20.5-60.0The [facility] CenterComment on above:Performed By: #### CBC ####[facility] [address] [place], [place] [address]Dr.Zari ButcherMANUAL DIFF REQ NONormalThe St. [facility]S Medical CenterComment on above:Performed By: #### CBC ####[facility] [address] [address]Dr. Zari HadleyH (RBC) [Entitic mass]27.2 tnPnpici62.7-34.0[facility] Comment on above:Performed By: #### CBC ####[facility] [address] [address]Dr.Zari HadleyHC (RBC) [Mass/Vol]31.7 g/dL Hbpmms20.9-35.2The St[facility]S Medical CenterComment on above:Performed By: #### CBC ####[facility] [address] [place], [place] [address]Dr. Franchescacarolyn ButcherV (RBC) [Entitic vol]85.8 hQHdafzi45.0-99.0[facility] Comment on above:Performed By: #### CBC ####[facility] Ejrceem[address] [place], [place] [address]Dr.Zari HadleyMONO #0.7 103/ulNormal0.3-0.8 [facility] CenterComment on above:Performed By: #### CBC ####[facility] Uuwnygdeal[address] [place], [place] [address]Dr.Zari Hadley Monocytes/100 WBC (Bld)6.2 %Normal1.7-12.0[facility] CenterComment on above: Performed By: #### CBC ####[facility] Etoathab[address] [place], [place] [address]Dr.Franchescacarolyn HadleyNEUT #9.1 103/ulCritically high1.4-6.5 [facility] CenterComment on above:Performed By: #### CBC ####[facility] Fbfnacsgrz[address] [place], [place] [address]DrFrancescaZari Hadley Neutrophils/100 WBC (Bld)77.3 %Critically high43.0-75.0[facility] Comment on above:Performed By: #### CBC ####[facility] [address]cgyav[address]ln[address] [place], [place] [address]Dr.Zari HadleyPlatelet mean volume (Bld) [Entitic vol]11.1 fLNormal9.5-13.5The St[facility] Medical CenterComment on above: Performed By: #### CBC ####[facility] [address] [address]Dr.Zari ZubthWJX522 103/wrIfagqi917-120Agp St[facility]S Medical CenterComment on above:Performed By: #### CBC ####[facility] [address] [address]Dr.Zari ButcherRBC4.15 106/ul Critically low4.20-5.40The St[facility] Medical CenterComment on above:Performed By: #### CBC ####[facility] [address] [address]DrFrancesca Hameed AdcdeWHD74.8 103/ulCritically high4.0-11.0The [facility] CenterComment on above:Performed By: #### CBC ####[facility] [address] [address]Dr.Yilan ButcherBASO #0.0 103/ulNormal0.0-0.1The [facility] CenterComment on above:Performed By: #### CVDTBH #### [facility] Laboratory [address] [place] [address] Dr. Zari Holdenphils/100 WBC (Bld)0.2 %Normal0.2-2.0The [facility] Comment on above:Performed By: #### CVDTBH #### [facility] Laboratory [address] [place] [address] Dr. Zari Turner #0.3 103/ulNormal0.0-0.7The [facility] CenterComment on above: Performed By: #### CVDTBH #### [facility] Laboratory [address] [place] [address] Dr. Zari Richardsonosinophils/100 WBC (Bld)1.4 %Normal0.9-7.0The [facility] Comment on above:Performed By: #### CVDTBH #### [facility] Laboratory [address] [address] [address] Yilan ChangErythrocyte distribution width (RBC) [Ratio]14.1 %Cxnaqo87.0-15.[address] [facility] CenterComment on above:Performed By: #### CVDTBH #### [facility] Laboratory [address] [place] [address] Dr. Zari ButcherHematocrit (Bld) [Volume fraction]38.2 %Kogqyh10.0-48.0The [facility] CenterComment on above:Performed By: #### CVDTBH #### [facility] Laboratory [address] [place] [address] Dr. Zari ButcherHemoglobin (Bld) [Mass/Vol]12.6 g/kZRgkdxs90.0-16.0The [facility] CenterComment on above:Performed By: #### CVDTBH #### [facility] Laboratory [address] [place] [address] Dr. Zari Nash #0.08 10e3/ulCritically high0.00-0.03The [facility] Comment on above:Performed By: #### CVDTBH #### [facility] Laboratory [address] [place] [address] Dr. Zari Nash %0.5 %Normal0.0-0.5The [facility] CenterComment on above: Performed By: #### CVDTBH #### [facility] Laboratory [address] [place] [address] Dr. Zari HollandH #1.8 103/ulNormal1.2-3.8The [facility] CenterComment on above:Performed By: #### CVDTBH #### [facility] Laboratory [address] [place] [address] Dr. Zari Brionesmphocytes/100 WBC (Bld)10.1 %Critically low20.5-60.0The [facility] CenterComment on above:Performed By: #### CVDTBH #### [facility] Laboratory [address] [place] [address] Dr. Zari ButcherMANUAL DIFF REQNONormalThe St. [facility]S Medical CenterComment on above: Performed By: #### CVDTBH #### [facility] Laboratory [address] [address] [address] Zari Herrera (RBC) [Entitic mass]27.6 ltQeectn08.7-34.0The [facility] CenterComment on above:Performed By: #### CVDTBH #### [facility] Laboratory [address] [place] [address] Dr. Zari Herrera (RBC) [Mass/Vol]33.0 g/uNUjamgs92.9-35.2The [facility] HospitalComment on above:Performed By: #### CVDTBH #### [facility] Laboratory [address] [place] [address] Dr. Zari Herrera (RBC) [Entitic vol]83.6 oTWhfcmb67.0-99.0The [facility] CenterComment on above:Performed By: #### CVDTBH #### [facility] Laboratory [address] [place] [address] Dr. Zari Alvarez #1.1 103/ulCritically high0.3-0.8ThMercy Health St. [facility] Comment on above:Performed By: #### CVDTBH #### [facility] Laboratory [address] [place] [address] Dr. Zari Bennettocytes/100 WBC (Bld)6.1 %Normal1.7-12.0[facility] Comment on above:Performed By: #### CVDTBH #### [facility] Laboratory [address] [place] [address] Dr. Zari Miller #14.4 103/ulCritically high1.4-6.5ThMercy Health St. [facility] Comment on above:Performed By: #### CVDTBH #### [facility] Laboratory [address] [place] [address] Dr. Zari Faustinutrophils/100 WBC (Bld)81.7 %Critically high43.0-75.0The [facility] CenterComment on above:Performed By: #### CVDTBH #### [facility] Laboratory [address] [place] [address] Dr. Zari Pozo mean volume (Bld) [Entitic vol]10.8 fLNormal9.5-13.5The [facility] CenterComment on above:Performed By: #### CVDTBH #### [facility] Laboratory [address] [address] [address] Zari ButcherPLT288 103/erRfzdfe193-024Hzd [facility] CenterComment on above: Performed By: #### CVDTBH #### [facility] Laboratory [address] [address] [address] Zari ButcherRBC4.57 106/ulNormal4.20-5.40The [facility] CenterComment on above:Performed By: #### CVDTBH #### [facility] Laboratory [address] [place] [address] Dr. Zari ButcherWBC17.6 103/ulCritically high4.0-11.0The [facility]. [facility] Hospitalment on above:Performed By: #### CVDTBH #### [facility] Laboratory [address] [place] [address] Dr. Zari ButcherCULTLEOBARDO URINEon 88-22-0877HIFFGVS URINECulture Observations: NO GROWTH.NormalThe St. [facility]S Medical CenterComment on above:Performed By: #### URCX #### [facility] Laboratory [address] [place] [address] Dr. Zari ButcherLIPASEon 74-88-5783Fapqyl [Catalytic activity/Vol]86.0 U/LNormal 73.0-393.0The [facility]. [facility] Hospitalment on above:Performed By: #### CMP, MEGHA, LIPA ####[facility] [address] [address]Dr. Zari ButcherPROF 14(COMP METB)on 16-51-6248Pfkxorm [Mass/Vol]2.3 g/dL Critically low3.4-5.0The [facility] CenterComment on above:Performed By: #### CBC #### [facility] Laboratory [address] [address] [address] Zari ButcherAlbumin/Globulin [Mass ratio]0.5 {ratio}NormalThe St. [facility]'S Medical CenterComment on above:Performed By: #### CBC #### [facility] Laboratory [address] [address] [address] Zari RobertoP [Catalytic activity/Vol]160 U/LCritically ekac13-353Lef [facility] CenterComment on above:Performed By: #### CBC #### [facility] Laboratory [address] [address] [address] Zari RobertoT [Catalytic activity/Vol]28 U/REychnw97-53Bbt St[facility] CenterComment on above:Performed By: #### CBC #### [facility] Laboratory [address] [address] [address] Zari Timmonson gap [Moles/Vol]11.8 mmol/LNormalThe [facility] Comment on above:Performed By: #### CBC #### [facility] Laboratory [address] [address] [address] Zari ButcherAST [Catalytic activity/Vol]53 U/LCritically vxfp03-50Mlw [facility] CenterComment on above:Performed By: #### CBC #### [facility] Laboratory [address] [address] [address] Zari ButcherBilirubin [Mass/Vol]0.6 mg/dLNormal0.2-1.0The [facility] Comment on above:Performed By: #### CBC #### [facility] Laboratory [address] [place] [address] Dr. Zari ButcherCalcium [Mass/Vol]8.9 mg/dLNormal8.5-10.1The [facility] Comment on above:Performed By: #### CBC #### [facility] Laboratory [address] [place] [address] Dr. Zari ButcherChloride [Moles/Vol]103 mmol/KFgvywp59-307Zwo [facility] Comment on above:Performed By: #### CBC #### [facility] Laboratory [address] [address] [address] Zari ButcherCO2 [Moles/Vol]23.7 mmol/MNdhsbl52.0-32.0The [facility] Comment on above:Performed By: #### CBC #### [facility] Laboratory [address] [address] [address] Zari Ferreratinine [Mass/Vol]0.48 mg/dLCritically low0.55-1.02The [facility] CenterComment on above:Performed By: #### CBC #### [facility] Laboratory [address] [place] [address] Dr. Zari RichardsonGFR-AF FRENCH>60Normal>=60The [facility] CenterComment on above:Performed By: #### CBC #### [facility] Laboratory [address] [place] [address] Dr. Zari RichardsonGFR-NON AF FRENCH>60Normal>=60The [facility] CenterComment on above:Performed By: #### CBC #### [facility] Laboratory [address] [place] [address] Dr. Zari ButcherGlobulin (S) [Mass/Vol]4.9 g/dLNormalThe St. [facility]S Medical CenterComment on above:Performed By: #### CBC #### [facility] Laboratory [address] [place] [address] Dr. Zari ButcherGlucose [Mass/Vol]101 mg/kCEnpmvr23-718DhkFairfield Medical Center Comment on above:Performed By: #### CBC #### [facility] Laboratory [address] [place] [address] Dr. Zari ButcherPotassium [Moles/Vol]3.5 mmol/LNormal3.5-5.1The [facility] Comment on above:Performed By: #### CBC #### [facility] Laboratory [address] [place] [address] Dr. Zari ButcherProtein [Mass/Vol]7.2 g/dLNormal6.4-8.2The [facility] Comment on above:Performed By: #### CBC #### [facility] Laboratory [address] [place] [address] Dr. Zari ButcherSodium [Moles/Vol]135 mmol/LCritically ege867-058Adk St[facility] CenterComment on above:Performed By: #### CBC #### [facility] Laboratory [address] [place] [address] Dr. Zari ButcherUrea nitrogen [Mass/Vol]7.0 mg/dLNormal7.0-18.0[facility] CenterComment on above:Performed By: #### CBC #### [facility] Laboratory [address] [place] [address] Dr. Zari Rowe nitrogen/Creatinine [Mass ratio]14.6 mg/mgNormalThe St. [facility]S Medical CenterComment on above:Performed By: #### CBC #### [facility] Laboratory [address] [place] [address] Dr. Zari Tubbs 81-36-4934ISJ [Catalytic activity/Vol]59 U/LCritically xrdi14-27HzyProMedica Bay Park Hospital on above:Performed By: #### CVDTBH #### [facility] Laboratory [address] [place] [address] Dr. Zari Green [id number] [Catalytic activity/Vol]41 U/LDviluf99-36Qeu [facility] CenterComment on above:Performed By: #### CVDTBH #### [facility] Laboratory [address] [place] [address] Dr. Zari Anaya (CLEAN/CATCH) FLOTATION TENDER/MICRO IF IND.on 48-17-1700Remjpxolx Ql (U) NegativeNormalNEGATIVEProMedica Bay Park Hospital on above:Performed By: #### RUBIGG #### [facility] Laboratory [address] [place] [address] Dr. Zari Winters (U)CLEARNormalCLEARFairfield Medical CenterComment on above: Performed By: #### RUBIGG #### [facility] Laboratory [address] [place] [address] Dr. Zari Robles (U)LT. YELLOWNormalYELLOWFairfield Medical CenterComment on above:Performed By: #### RUBIGG #### [facility] Laboratory [address] [place] [address] Dr. Zari ButcherGlucose Ql (U)NegativeNormalNEGATIVEFairfield Medical CenterComment on above:Performed By: #### RUBIGG #### [facility] Laboratory [address] [place] [address] Dr. Zari ButcherHemoglobin Ql (U)NegativeNormalNEGPremier Health [facility] Comment on above:Performed By: #### RUBAPRILG #### [facility] Laboratory [address] [place] [address] Dr. Zari Mendozaones Ql (U)NegativeNormalNEGATIVEFairfield Medical CenterComment on above:Performed By: #### RUBAPRILG #### [facility] Laboratory [address] [place] [address] Dr. Zari ButcherLEUKOCYTESSMALLAbnormalNEGATIVEFairfield Medical CenterComment on above:Performed By: #### RUBAPRILG #### [facility] Laboratory [address] [place] [address] Dr. Zari ButcherNitrite Ql (U)NegativeNormalNEGATIVEFairfield Medical CenterComment on above:Performed By: #### RUBAPRILG #### [facility] [address] [place] [address] Dr. Zari ButcherpH (U)7.5 [pH]Normal5-9Fairfield Medical CenterComment on above: Performed By: #### JENNIFERG #### [facility] [address] [place] [address] Dr. Zari ButcherSPEC GRAVITY1.580Omxqhh5.005-<=1.025The St. Mary'S Medical CenterComment on above:Performed By: #### RUBAPRILG #### [facility] [address] [place] [address] Dr. Zari Anaya PROTEINNegativeNormalNEGATIVE/ TRACEThe St. [facility] Comment on above:Performed By: #### RUBAPRILG #### [facility] [address] [place] [address] Dr. Zari Dee MICRO INDINDICATEDNormalThMercy Health St. Charles HospitalComment on above: Performed By: #### RUBAPRILG #### [facility] [address] [place] [address] Dr. Zari Bardalesgen Qn (U)4 {Ashvin'U}/dLAbnormal0.2 - 1.0The [facility] HospitalComment on above:Performed By: #### RUBIGG #### [facility] [address] [address] [address] Zari Jordan MICROSCOPIC ONLYon [id number]Q SEEN [facility] CenterComhelen [facility] on above:Performed By: #### RUBIGG #### [facility] [address] [address] [address] Zari Biswas identified Cx Nom (U)INDICATEDNoOur Lady of Mercy Hospital - AndersonComment on above:Performed By: #### RUBIGG #### [facility] [address] [address] [address] Zari Canales SEENNormalNONE SEENProMedica [facility] on above:Performed By: #### RUBIGG #### [facility] [address] [address] [address] Zari Buitragoystals LM Nom (Urine sed)NONE SEENNormalNONE SEENProMedica Bay Park Hospital on above:Performed By: #### RUBIGG #### [facility] [address] [address] [address] Hameed ChangEpithelial cells LM Ql (Urine sed)MANYAbnormalNONE SEEN /RAREProMedica Bay Park Hospital on above:Performed By: #### RUBIGG #### [facility] [address] [address] [address] Zari FernándezE SEENNormalNONE SEENProMedica Bay Park Hospital on above:Performed By: #### RUBIGG #### [facility] [address] [address] [address] Zari ButcherRgnocQAS1-2Enzfxijw9-9UnxProMedica Bay Park Hospital on above:Performed By: #### RUBIGG #### [facility] [address] [address] [address] Zari ButcherWBC5-10AbnormalNONE SEENProMedica Bay Park Hospital on above: Performed By: #### RUBIGG #### [facility] [address] [address] [address] Zari Waldrop PREG BIOPHY W NON STRESSon [id number] PREG BIOPHY W NON STRESSEXAMINATION: US PREG [...] Electronically authenticated by: KIRSTEN MATA Date: 2022-08-21 16:40[facility] PREG PLACENTAon [id number] PREG PLACENTAEXAMINATION: US PREG PLACENTA HISTORY: pain COMPARISON: No relevant comparison available. FINDINGS: position: Cephalic presentation, longitudinal lie Amniotic fluid volume: 12.7 cm. Largest pocket 6.3 cm Placenta: Anterior. Grade 1. No intraplacental or retroplacental echogenic abnormality Heart rate: 1 40 bpm IMPRESSION: Normal appearance of the placenta Electronically authenticated by: KIRSTEN MATA Date: 2022-08-21 11:42[facility] PREG INCOMPLETE ANATOMYon [id number] PREG INCOMPLETE ANATOMYEXAMINATION: US PREG GROWTH, US [...] Electronically authenticated by: ALEE MARTELL Date: 2022-08-08 05:57[facility] INCOMPLETE ANATOMYon [id number] PREG INCOMPLETE ANATOMYEXAMINATION: US PREG INCOMPLETE ANATOMY [...] Electronically authenticated by: ALEE MARTELL Date: 2022-07-06 16:19[facility] PREG INCOMPLETE ANATOMYon [id number] PREG INCOMPLETE ANATOMYEXAMINATION: US PREG INCOMPLETE ANATOMY [...] Electronically authenticated by: ALEE MARTELL Date: 2022-06-14 16:20[facility] HospitalGLUCOSE - 1HRon [id number] [Mass/Vol]137 mg/dLCritically adsm18-317Njl [facility] on above:Performed By: #### JENNIFERG #### [facility] [address] [place] [address] Dr. Zari ButcherHEMOGRAM AND PLATELon 60-06-4518Tegckscvwx (Bld) [Volume fraction]38.4 %Eutdjs26.0-48.0The [facility] HospitalComment on above:Performed By: #### PURVIIGG #### [facility] [address] [place] [address] Dr. Zari Louiseoglobin (Bld) [Mass/Vol]12.4 g/sDUoauml56.0-16.0The St[facility]S Medical CenterComment on above:Performed By: #### JENNIFERG #### [facility] [address] [place] [address] Dr. Zari Herrera (RBC) [Entitic mass]27.7 wmWnqgpr15.7-34.0The St[facility]S Medical CenterComment on above:Performed By: #### JENNIFERG #### [facility] [address] [place] [address] Dr. Zari Herrera (RBC) [Mass/Vol]32.3 g/uGEgcxbk04.9-35.2The [facility]S Medical CenterComment on above:Performed By: #### JENNIFERG #### [facility] [address] [place] [address] Dr. Zari HerreraV (RBC) [Entitic vol]85.7 fZKmssuk59.0-99.0The St[facility]S Medical CenterComment on above:Performed By: #### PURVIIGG #### [facility] [address] [place] [address] Dr. Zari ButcherPLT274 103/hcHjoeui224-540Rrm St. [facility]S Medical CenterComment on above: Performed By: #### JENNIFERG #### [facility] [address] [place] [address] Dr. Zari ButcherRBC4.48 106/ulNormal4.20-5.40The St[facility]S Medical CenterComment on above:Performed By: #### JENNIFERG #### [facility] [address] [place] [address] Dr. Zari ButcherWBC10.5 103/ulNormal4.0-11.0The [facility]S Medical CenterComment on above:Performed By: #### JENNIFERG #### [facility] [address] [place] [address] Dr. Zari Waldrop PREG ANATOMY SINGLEon [id number] PREG ANATOMY SINGLE EXAMINATION: US PREG ANATOMY [...] Electronically authenticated by: KIRSTEN MATA Date: 2022-05-16 18:25[facility] HospitalCHEMISTRYOrdered By: SYSTEM SYSTEM on 64-62-5730Vyhhsvh [Mass/Vol]3.0 g/dLLow3.3 - 5.0 gm/dLFTMC RemisolAlbumin/Globulin [Mass ratio]0.8 {ratio}Low1.1 - 2.2[facility] RemisolALP [Catalytic activity/Vol]59 [iU]/nInebup47 - 98 Int._Unit/LFTMC RemisolALT No additional P-5'-P [Catalytic activity/Vol]12 [iU]/dNormal6 - 46 Int._Unit/LFTMC RemisolAnion gap [Moles/Vol]13 mmol/LNormal6 - 16 mEq/LFTMC RemisolAST [Catalytic activity/Vol]12 [iU]/dNormal5 - 43 Int._Unit/LFTMC RemisolBilirubin [Mass/Vol]0.3 mg/dLNormal0.0 - 1.1 mg/dLFTMC RemisolBilirubin.direct [Mass/Vol]mg/dLNormal0.1 - 0.4 mg/dLFTMC Remisol Bilirubin.indirect [Mass or moles/Vol]Unable to Calculate mg/dLInvalid Interpretation Code0.1 - 0.9 mg/dLFTMC RemisolCalcium [Mass/Vol]9.3 mg/dLNormal 8.9 - 11.1 mg/dLFTMC RemisolChloride [Moles/Vol]104 mmol/QHwnoip147 - 111 mmol/L [facility] RemisolCO2 [Moles/Vol]23 mmol/TAcdync30 - 31 mmol/LFTMC RemisolCreatinine [Mass/Vol]0.4 mg/dLLow0.5 - 1.3 mg/dLFTMC RemisolGFR/1.73 sq M.predicted among blacks MDRD (S/P/Bld) [Vol rate/Area]mL/min/1.73 r2Topvdb>=59mL/min/1.73 m2[facility] Chem SGFR/1.73 sq M.predicted among non-blacks MDRD (S/P/Bld) [Vol rate/Area] mL/min/1.73 p0Njbvbh>=59mL/min/1.73 m2[facility] Chem SGlobulin (S) [Mass/Vol]3.9 g/dL Normal1.4 - 4.0 gm/dLFTMC RemisolGlucose [Mass/Vol]88 mg/zNUzvxuy65 - 199 mg/dL [facility] RemisolLipase [Catalytic activity/Vol]26 U/FLtviuk81 - 58 unit/LFTMC RemisolPotassium [Moles/Vol]3.7 mmol/LNormal3.5 - 5.3 mmol/LFTMC RemisolProtein [Mass/Vol]6.9 g/dLNormal6.0 - 7.8 gm/dLFTMC RemisolSodium [Moles/Vol]136 mmol/L Lhdqhi319 - 145 mmol/LFTMC RemisolUrea nitrogen [Mass/Vol]8 mg/dLNormal5 - 21 mg/dLFTMC RemisolUrea nitrogen/Creatinine [Mass ratio]20 mg/pmKgobml47 - 20[facility] RemisolHEMATOLOGYOrdered By: [employer] SYSTEM on 71-75-4966Ympknmxrj/100 WBC (Bld) 0.7 %Normal0.0 - 2.0 %[facility] HemeAutoSSBasophils/Leukocytes Auto (Bld) [Pure # fraction]0.1 E9/LNormal0.0 - 0.2 E9/LFTMC HemeAutoSSEosinophils/100 WBC (Bld)1.3 %Normal0.0 - 8.0 %[facility] HemeAutoSSEosinophils/Leukocytes Auto (Bld) [Pure # fraction]0.2 E9/LNormal0.0 - 0.5 E9/LFTMC HemeAutoSSLymphocytes/100 WBC (Bld) 19.1 %Dnzjsk89.0 - 50.0 %[facility] HemeAutoSSLymphocytes/Leukocytes Auto (Bld) [Pure # fraction]2.6 E9/LNormal1.0 - 4.0 E9/LFTMC HemeAutoSSMonocytes/100 WBC (Bld)5.7 %Normal4.0 - 14.0 %[facility] HemeAutoSSMonocytes/Leukocytes Auto (Bld) [Pure # fraction]0.8 E9/LNormal0.2 - 1.0 E9/LFTMC HemeAutoSSNeutrophils/100 WBC (Bld) 73.2 %Wpxhuz09.0 - 75.0 %[facility] HemeAutoSSNeutrophils/Leukocytes Auto (Bld) [Pure # fraction]10.1 E9/LHigh2.0 - 7.5 E9/LFTMC HemeAutoSSHEMATOLOGYOrdered By: Shanique Jerez on 83-04-1046Phfqphfsgec distribution width (RBC) [Ratio]14.5 % High10.9 - 14.2 %[facility] HemeAutoSSHematocrit (Bld) [Volume fraction]40.4 %Normal 34.0 - 46.0 %[facility] HemeAutoSSHemoglobin (Bld) [Mass/Vol]13.2 g/hJZqrdak24.0 - 16.0 gm/dLFTMC HemeAutoSSMCH (RBC) [Entitic mass]27.0 lcNbszkt39.0 - 34.0 pgFTMC HemeAutoSSMCHC (RBC) [Mass/Vol]32.7 g/wCAvjdne77.4 - 36.0 gm/dLFTMC HemeAutoSS MCV (RBC) [Entitic vol]82.7 uYGbgzqm02.0 - 100.0 fLFTMC HemeAutoSSPlatelet mean volume (Bld) [Entitic vol]9.2 fLNormal6.4 - 10.8 fLFTMC HemeAutoSSPlatelets (Bld) [#/Vol]267.0 E9/TVbjqxb324.0 - 500.0 E9/LFTMC HemeAutoSSRBC (Bld) [#/Vol] 4.9 E12/LNormal4.3 - 5.9 E12/LFTMC HemeAutoSSWBC corrected for nucl RBC Auto (Bld) [#/Vol]13.8 E9/LHigh4.0 - 11.0 E9/LFTMC HemeAutoSSURINALYSISOrdered By: Shanique Jerez on 13-93-1965Omikvrja LM Ql (Urine sed)1+ /HPFInvalid Interpretation CodeTrace/HPFFT UA Auto SSBilirubin Ql (U)Negative (05/06/22 1:39 AM)NormalNegativeSA[facility] U[facility] Auto SSClarity (U)Slightly Cloudy *ABN* (05/06/22 1:39 AM)Invalid Interpretation CodeClearFC UA Auto SSColor (U)Yellow (05/06/22 1:39 AM)NormalYellowFT UA Auto SSEpithelial cells.squamous LM.HPF (Urine sed) [#/Area]/[HPF]Normal0-2/HPFFTMC UA Auto SSGlucose Test strip (U) [Mass/Vol]Negative (05/06/22 1:39 AM)NormalNegativeSAINT [facility] [place] UA Auto SSHemoglobin Ql (U)Negative (05/06/22 1:39 AM)NormalNegativeSAINT [facility] [place] UA Auto SSKetones (U) [Mass/Vol]Trace *ABN* (05/06/22 1:39 AM)Invalid Interpretation CodeNegativeSAINT [facility]ANC[facility] [place] UA Auto SS Cusick.plasma/Cusick.RBC (Bld) [Mass ratio]0-3 /HPFNormal0-3/HPFSAINT FRANCIS [facility] [place] UA Auto SSMucus Ql (Urine sed)1+ (05/06/22 1:39 AM)NormalSAINT [facility]ANCIS [facility] [place] UA Auto SSNitrite Ql (U)Negative (05/06/22 1:39 AM)NormalNegativeSAINT [facility]ANC[facility] [place] UA Auto SSpH (U)6.0 *NA* (05/06/22 1:39 AM)Invalid Interpretation Code5.0 - 9.0[facility] UA Auto SSProtein (U) [Mass/Vol]Negative (05/06/22 1:39 AM)NormalNegativeSAINT FRANCIS [facility] [place] UA Auto SSSpecific gravity (U) [Rel density] 1.025 *NA* (05/06/22 1:39 AM)Invalid Interpretation Code1.005 - 1.030[facility] UA Auto SSUA Spec DescClean Catch (05/06/22 1:39 AM)NormalSAINT FRANCIS [facility] [place] UA Auto SSUrobilinogen Qn (U)1.6923757 {Ashvin'U}/dLNormal0.0 - 1.0 EU/dLSAINT FRANCIS [facility] [place] UA Auto SSWBC Auto Ql (U)1+ *ABN* (05/06/22 1:39 AM)Invalid Interpretation CodeNegativeSAINT [facility]ANC[facility] [place] UA Auto SSWBC LM.HPF (Urine sed) [#/Area]6-15 /HPFInvalid Interpretation Code0-5/HPFSAINT FRANCIS [facility] [place] UA Auto SS AMYLASEon 93-51-6693Ewnvlnn [Catalytic activity/Vol]36 U/HLxqdlw17-211Obh St. [facility]S Medical CenterComment on above:Performed By: #### CBC #### [facility] [address] [place], [place] [address] Dr. Zari Tovar AUTO DIFFon 97-47-6840DDAC #0.0 103/ulNormal0.0-0.1The St. [facility]'S Medical CenterComment on above:Performed By: #### CBC ####[facility] [address] [place], [place] [address]Gu.Yilan ChangBasophils/100 WBC (Bld)0.2 %Normal0.2-2.0The [facility]S Medical CenterComment on above:Performed By: #### CBC ####[facility] [address] [place], [place] [address]Dr.Franchescalan ChangEO #0.1 103/ulNormal0.0-0.7The St. [facility]S Medical CenterComment on above:Performed By: #### CBC ####[facility] [address] [place], [place] [address]Dr.Zari ChangEosinophils/100 WBC (Bld)1.0 %Normal 0.9-7.0The [facility]S Medical CenterComment on above:Performed By: #### CBC ####[facility] [address] [place], [place] [address]Dr.Franchescacarolyn Butcher Erythrocyte distribution width (RBC) [Ratio]13.5 %Kifpyw35.0-15.0The St. [facility]'S Medical CenterComment on above:Performed By: #### CBC ####[facility] S[address] [place], [place] [address]Dr.Zari ChangHematocrit (Bld) [Volume fraction]41.9 %Lkdmky79.0-48.0The [facility]S Medical CenterComment on above:Performed By: #### CBC ####[facility] [address] [place], [place] [address]Dr.Zari ChangHemoglobin (Bld) [Mass/Vol]13.7 g/dL Hqygeu84.0-16.0The St[facility]S Medical CenterComment on above:Performed By: #### CBC ####[facility] [address] [place], [place] [address]Dr. Zari ChangIG #0.04 10e3/ulCritically high0.00-0.03The St[facility]S Medical CenterComment on above:Performed By: #### CBC ####[facility] [address]fbuthids[address] [place], [place] [address]Dr.Zari ChangIG %0.4 %Normal0.0-0.5The St[facility]S Medical CenterComment on above:Performed By: #### CBC ####[facility] [address] [id number].Zari ButcherLYMPH #1.3 103/ulNormal1.2-3.8The St. [facility]S Medical CenterComment on above:Performed By: #### CBC ####[facility] [address] [address]Dr. Zari ButcherLymphocytes/100 WBC (Bld)12.8 %Critically low20.5-60.0The [facility]S Medical CenterComment on above:Performed By: #### CBC ####[facility] [address] [address]Dr.Zari ButcherMANUAL DIFF REQ NONormalThe St. Mary'S Medical CenterComment on above:Performed By: #### CBC ####[facility] [address] [address]Dr. Zari ButcherH (RBC) [Entitic mass]27.7 xfWhqfbr65.7-34.0The [facility] Comment on above:Performed By: #### CBC ####[facility] L[address] [place], [place] [address]Dr.Zari ButcherMCHC (RBC) [Mass/Vol]32.7 g/dL Byvbtn85.9-35.2The St[facility] Medical CenterComment on above:Performed By: #### CBC ####[facility] [address] [place], [place] [address]Dr. Zari ButcherMCV (RBC) [Entitic vol]84.6 wFVvyimv37.0-99.0The [facility] Comment on above:Performed By: #### CBC ####[facility] [address] [address]Dr.Zari ButcherMONO #0.4 103/ulNormal0.3-0.[address] [facility]S Medical CenterComment on above:Performed By: #### CBC ####[facility] [address]fr[address]fe[address] [place], [place] [address]Dr.Zari Butcher Monocytes/100 WBC (Bld)4.3 %Normal1.7-12.0The [facility]S Medical CenterComment on above: Performed By: #### CBC ####[facility] [address] [address]Dr.Zari ButcherNEUT #8.1 103/ulCritically high1.4-6.[address] [facility] CenterComment on above:Performed By: #### CBC ####[facility] [address] [address]Dr.Zari Butcher Neutrophils/100 WBC (Bld)81.3 %Critically high43.0-75.0The [facility] Comment on above:Performed By: #### CBC ####[facility] [address] [address]Dr.Zari ButcherPlatelet mean volume (Bld) [Entitic vol]9.8 fLNormal9.5-13.5The St. [facility]S Medical CenterComment on above:Performed By: #### CBC ####[facility] [address] [address]Dr.Zari RrjnuFDE587 103/vsUzmkye828-955Upz St. [facility]S Medical CenterComment on above:Performed By: #### CBC ####[facility] [address] [address]Dr.Zari ButcherRBC4.95 106/ulNormal4.20-5.40The [facility]S Medical CenterComment on above:Performed By: #### CBC ####[facility] [address] [place], [place] [address]Dr.Zari ButcherWBC9.9 103/ul Normal4.0-11.0The St. [facility]S Medical CenterComment on above:Performed By: #### CBC ####[facility] [address]dligk[address] [place], [place] [address]Dr. Zari ChangER URINE PROFILEon 86-11-3122Trtifpkim Ql (U)NegativeNormalNEGATIVE The St. [facility]S Medical CenterComment on above:Performed By: #### CVDTBH #### [facility] [address] [address] [address] Zari ButcherClarity (U)CLEARNormalCLEARThe St. [facility]S Medical CenterComment on above: Performed By: #### CVDTBH #### [facility] [address] [address] [address] Zari Oroscolor (U)YELLOWNormalYELLOWFairfield Medical CenterComment on above: Performed By: #### CVDTBH #### [facility] [address] [place] [address] Dr. Zari Bobby micrscopic examination will be performed if indicated. NormalThe Luxemburg HospitalComment on above:Performed By: #### CVDTBH #### [facility] [address] [address] [address] Zari ButcherGlucose Ql (U)NegativeNormalNEGATIVEFairfield Medical CenterComment on above:Performed By: #### CVDTBH #### [facility] [address] [place] [address] Dr. Zari ButcherHemoglobin Ql (U)NegativeNormalNEGATIVEOur [facility] Of [facility] on above:Performed By: #### CVDTBH #### [facility] [address] [place] [address] Dr. Zari Mendozaones Ql (U)NegativeNormalNEGATIVEFairfield Medical CenterComment on above:Performed By: #### CVDTBH #### [facility] [address] [place] [address] Dr. Zari ButcherLEUKOCYTESNegativeNormalNEGATIVEFairfield Medical CenterComment on above:Performed By: #### CVDTBH #### [facility] [address] [place] [address] Dr. Zari ButcherNitrite Ql (U)NegativeNormalNEGATIVEFairfield Medical CenterComment on above:Performed By: #### CVDTBH #### [facility] [address] [address] [address] Zari ButcherpH (U)5.5 [pH]Normal5-9Fair[facility] Medical CenterComment on above: Performed By: #### CVDTBH #### [facility] [address] [place] [address] Dr. Zari ButcherSPEC GRAVITY>=1.537Vbuzzcat1.005-<=1.025The [facility] Comment on above:Performed By: #### CVDTBH #### [facility] [address] [place] [address] Dr. Zari Anaya PROTEINNegativeNoalNEGATIVE/ TRACEThe St[facility] Comment on above:Performed By: #### CVDTBH #### [facility] [address] [place] [address] Dr. Zari Dee MICRO INDNOT INDICATEDNormalThe St. [facility]'S Medical CenterComment on above:Performed By: #### CVDTBH #### [facility] [address] [place] [address] Dr. Zari Gonzalezbilrose Qn (U)2.0 {Ashvin'U}/dLAbnormal0.2 - 1.0The [facility]S Medical CenterComment on above:Performed By: #### CVDTBH #### [facility] [address] [place] [address] Dr. Zari ButcherLIPASEon 48-91-2344Wetypi [Catalytic activity/Vol]56.0 U/L Critically low73.0-393.0The St. [facility]S Medical CenterComment on above:Performed By: #### CBC #### [facility] [address] [place] [address] Dr. Zari Sanchez 14(COMP METB)on 48-97-3249Mwfzbqx [Mass/Vol]2.8 g/dL Critically low3.4-5.0The St[facility]S Medical CenterComment on above:Performed By: #### CBC #### [facility] [address] [place] [address] Dr. Zari ButcherAlbumin/Globulin [Mass ratio]0.6 {ratio}NormalThe St. Mary'S Medical CenterComment on above:Performed By: #### CBC #### [facility] [address] [place] [address] Dr. Zari RobertoP [Catalytic activity/Vol]74 U/GRylibm47-538Fgn St. [facility]'S Medical CenterComment on above:Performed By: #### CBC #### [facility] [address] [place] [address] Dr. Zari Meyers [Catalytic activity/Vol]40 U/MPvymlw39-65Ynx St. [facility]S Medical CenterComment on above:Performed By: #### CBC #### [facility] [address] [place] [address] Dr. Zari Timmonson gap [Moles/Vol]11.5 mmol/LNormalFairfield Medical Center Comment on above:Performed By: #### CBC #### [facility] [address] [place] [address] Dr. Zari ButcherAST [Catalytic activity/Vol]18 U/EXojgif53-89Hln St. [facility]S Medical CenterComment on above:Performed By: #### CBC #### [facility] [address] [place] [address] Dr. Zari ButcherBilirubin [Mass/Vol]0.4 mg/dLNormal0.2-1.0[facility] Comment on above:Performed By: #### CBC #### [facility] [address] [place] [address] Dr. Zari ButcherCalcium [Mass/Vol]8.6 mg/dLNormal8.5-10.1The [facility] Comment on above:Performed By: #### CBC #### [facility] [address] [place] [address] Dr. Zari ButcherChloride [Moles/Vol]104 mmol/AXkpkjw69-214Ael [facility] Comment on above:Performed By: #### CBC #### [facility] [address] [place] [address] Dr. Zari ButcherCO2 [Moles/Vol]25.2 mmol/ERhztxm66.0-32.0The [facility] Comment on above:Performed By: #### CBC #### [facility] [address] [place] [address] Dr. Zari ButcherCreatinine [Mass/Vol]0.48 mg/dLCritically low0.55-1.02The St[facility] Medical CenterComment on above:Performed By: #### CBC #### [facility] [address] [place] [address] Dr. Hameed ChangEGFR-AF FRENCH>60Normal>=60The St. [facility]'S Medical CenterComment on above:Performed By: #### CBC #### [facility] [address] [address] [address] Zari RichardsonGFR-NON AF FRENCH>60Normal>=60The St. [facility]S Medical CenterComment on above:Performed By: #### CBC #### [facility] [address] [address] [address] Zari ButcherGlobulin (S) [Mass/Vol]4.5 g/dLNormSt. Mary's Medical Center, Ironton CampusComment on above:Performed By: #### CBC #### [facility] [address] [address] [address] Zari ButcherGlucose [Mass/Vol]100 mg/gHJkdghj13-131ZorFairfield Medical Center Comment on above:Performed By: #### CBC #### [facility] [address] [address] [address] Zari ButcherPotassium [Moles/Vol]3.7 mmol/LNormal3.5-5.1[facility] Comment on above:Performed By: #### CBC #### [facility] [address] [address] [address] Zari ButcherProtein [Mass/Vol]7.3 g/dLNormal6.4-8.2[facility] Comment on above:Performed By: #### CBC #### [facility] [address] [address] [address] Zari ButcherSodium [Moles/Vol]137 mmol/VIoweeb124-358LdbFairfield Medical Center Comment on above:Performed By: #### CBC #### [facility] [address] [address] [address] Zari ButcherUrea nitrogen [Mass/Vol]5.0 mg/dLCritically low7.0-18.0The St[facility] CenterComment on above:Performed By: #### CBC #### [facility] [address] [address] [address] Zari ButcherUrea nitrogen/Creatinine [Mass ratio]10.4 mg/mgNormTriHealth [facility]ull[facility] on above:Performed By: #### CBC #### [facility] [address] [place] [address] Dr. Zari Salinas B SURFACE ANTIGEN SCREENon [id number] ScreenNegative NormalNegativeThe [facility] on above:Performed By: #### RUBIGG #### [facility] [address] [place] [address] Dr. Zari PhilipPATITIS C VIRUS AB W/ REFLEX QUANTon [id number] AB<0.1Normal 0.0-0.9The [facility] on above:Performed By: #### RUBIGG #### [facility] [address] [place] [address] Dr. Zari ButcherInterpretation:CommentGlenbeigh Hospital on above:Result Comment: Negative Not infected with HCV, unless recent infection is suspected or other evidence exists to indicate HCV infection.Performed By: #### RUBIGG #### [facility] [address] [place] [address] Dr. Zari Parker 1 AND 2 WITH REFLEXon [id number] Screen 4th Generation wRfxNon-ReactiveNormalNon ReactiveThe [facility] on above:Result Comment: HIV Negative HIV-1/HIV-2 antibodies and HIV-1 p24 antigen were NOT detected. There is no laboratory evidence of HIV infection.Performed By: #### RUBIGG #### [facility] [address] [place] [address] Dr. Zari ButcherRPR QUANTon 84-95-7016Tvvqg Plasma Reagin, QuantNon-Reactive NormalNonRea<1:1The [facility] on above:Result Comment: Please Note: This test does not meet current guidelines for screening and diagnosis of syphilis. This test is intended for following treatment response in patients being treated for syphilis infection. To screen for syphilis infection, a reflex cascade that includes both RPR and a treponema-specific assay should be utilized, such as Treponema pallidum (Syphilis) Screening [place] (866740) or Rapid Plasma Reagin (RPR) Test With Reflex to Quantitative RPR and Confirmatory Treponema pallidum Antibodies (553852).Performed By: #### CBC #### [facility] [address] [place] [address] Dr. Zari Livingston AB IGGon 80-60-4015Kqtdsmy Antibodies, IgG1.48 index NormalImmune >0.99The [facility]. [facility] CenterComment on above:Result Comment: Non- immune <0.90 Equivocal 0.90 - 0.99 Immune >0.99Performed By: #### RUBIGG #### [facility] [address] [place] [address] Dr. Zari Tovar AUTO DIFFon 80-26-9590VTUE #0.0 103/ulNormal0.0-0.1The [facility] CenterComment on above:Performed By: #### CBC #### [facility] [address] [place] [address] Dr. Zari ButcherBasophils/100 WBC (Bld)0.3 %Normal0.2-2.0[facility] Comment on above:Performed By: #### CBC #### [facility] [address] [place] [address] Dr. Zari Turner #0.2 103/ulNormal0.0-0.7The [facility] CenterComment on above: Performed By: #### CBC #### [facility] [address] [place] [address] Dr. Zari Richardsonosinophils/100 WBC (Bld)1.7 %Normal0.9-7.0The [facility] Comment on above:Performed By: #### CBC #### [facility] [address] [place] [address] Dr. Zari Richardsonrythrocyte distribution width (RBC) [Ratio]13.2 %Xrjlrh99.0-15.[address] [facility] CenterComment on above:Performed By: #### CBC #### [facility] [address] [place] [address] Dr. Zari ButcherHematocrit (Bld) [Volume fraction]42.0 %Lhpbdi43.0-48.0The [facility] CenterComment on above:Performed By: #### CBC #### [facility] [address] [address] [address] Zari ButcherHemoglobin (Bld) [Mass/Vol]13.5 g/uITljjnc35.0-16.0The [facility] CenterComment on above:Performed By: #### CBC #### [facility] [address] [address] [address] Zari Nash #0.04 10e3/ulCritically high0.00-0.03The [facility] Comment on above:Performed By: #### CBC #### [facility] [address] [address] [address] Zari Nash %0.4 %Normal0.0-0.5The [facility] CenterComment on above: Performed By: #### CBC #### [facility] [address] [address] [address] Zari Chavez #2.5 103/ulNormal1.2-3.8The [facility] CenterComment on above:Performed By: #### CBC #### [facility] [address] [address] [address] Zari Hollandhocytes/100 WBC (Bld)22.6 %Qvvote90.5-60.0The [facility] Hospitalment on above:Performed By: #### CBC #### [facility] [address] [address] [address] Zari SmallUAL DIFF REQNONormalThe St. [facility]'S Medical CenterComment on above: Performed By: #### CBC #### [facility] [address] [address] [address] Zari Herrera (RBC) [Entitic mass]27.2 iiLqycjs10.7-34.0The [facility] CenterComment on above:Performed By: #### CBC #### [facility] [address] [address] [address] Zari Herrera (RBC) [Mass/Vol]32.1 g/eFYksmdq05.9-35.2The [facility] HospitalComment on above:Performed By: #### CBC #### [facility] [address] [address] [address] Zari Bertrand (RBC) [Entitic vol]84.5 iQWhwvwj04.0-99.0The [facility] CenterComment on above:Performed By: #### CBC #### [facility] [address] [place] [address] Dr. Zari Alvarez #0.6 103/ulNormal0.3-0.8The [facility] CenterComment on above:Performed By: #### CBC #### [facility] [address] [place] [address] Dr. Zari Bennettocytes/100 WBC (Bld)5.1 %Normal1.7-12.0[facility] Comment on above:Performed By: #### CBC #### [facility] [address] [place] [address] Dr. Zari Miller #7.7 103/ulCritically high1.4-6.5The [facility] Comment on above:Performed By: #### CBC #### [facility] [address] [place] [address] Dr. Zari Faustinutrophils/100 WBC (Bld)69.9 %Swjxtb04.0-75.0The [facility] CenterComment on above:Performed By: #### CBC #### [facility] [address] [place] [address] Dr. Zari Colemanlet mean volume (Bld) [Entitic vol]10.1 fLNormal9.5-13.5The St[facility] CenterComment on above:Performed By: #### CBC #### [facility] [address] [place] [address] Dr. Zari ButcherPLT312 103/ueTkfmuc409-322Trw St. [facility]S Medical CenterComment on above: Performed By: #### CBC #### [facility] [address] [place] [address] Dr. Zari ButcherRBC4.97 106/ulNormal4.20-5.40The [facility] Hospitalment on above:Performed By: #### CBC #### [facility] [address] [address] [address] Zari ButcherWBC11.0 103/ulNormal4.0-11.0The [facility] Hospitalment on above:Performed By: #### CBC #### [facility] [address] [address] [address] Zari ButcherCULTURE URINEon 84-68-0819RYZABPH URINECulture Observations: LIGHT GROWTH OF MIXED GENITAL ALIVIA. NO POTENTIAL PATHOGENS SEEN.NormalThe St. [facility]'S Medical CenterComment on above:Performed By: #### URCX ####[facility] [address] [address]. Zari Butcher GLYCOHEMOGLOBIN A1Con 17-25-1824GOB RECOMMENDATIONSEE BELOWMiddletown HospitalComhelen newberry joy hospital on above:Result Comment: ADA RECOMMENDED LIMIT 4.0 - 6.0 ADA THERAPEUTIC TARGET < 7.0 ACTION SUGGESTED > 7.0Performed By: #### RUBIGG #### [facility] [address] [address] [address] Zari ButcherGlucose [Mass/Vol]114 mg/dLMiddletown HospitalComhelen newberry joy hospital on above:Performed By: #### RUBIGG #### [facility] [address] [address] [address] Zari ButcherHbA1c (Bld) [Mass fraction]5.6 %Normal4.5-6.2[facility] on above:Performed By: #### RUBIGG #### [facility] [address] [address] [address] Zari ButcherTYPE AND SCREENon 83-71-9890GNNO AND SCREENNegativeMiddletown HospitalComhelen newberry [facility] hospital on above:Performed By: #### TNS #### [facility] [address] [address] [address] Zari ButcherUS PREG TVon 24-39-4546ON PREG TVEXAMINATION: US PREG TV HISTORY: Missed [...] Electronically authenticated by: KIRSTEN MATA Date: 2022-02-17 10:28Middletown HospitalPRE QUANT HCGon 34-95-1099VCV XUJSN1984 mIU/mLNFisher-Titus Medical CenterComment on above:Performed By: #### FÁTIMA #### [facility] [address] [place] [address] Dr. Zari ButcherJuma [facility], Edwin ShawComment on above: Result Comment: 5-50 0-1 WEEK 40-300 1-2 WEEKS 100-1,000 2-3 WEEKS 500-6,000 3-4 WEEKS 5,000-200,000 1-2 MONTHS 10,000-100,000 2-3 MONTHS 3,000-50,000 2ND TRIMESTER 1,000-50,000 3RD TRIMESTERPerformed By: #### FÁTIMA #### [facility] [address] [place] [address] Dr. Zari Issa 88-83-6374CLQVVnkhit Visit (BREANNE) PRUDENCIO MIN ([id number]) 1995 F Date Time Provider Department 04/18/19 9:00 AM MARIN BARTLETT During your visit today, we recorded the following information about you: Pulse Blood pressure Weight Height 87/minute 133/62 137 kg 1.562 m Marin Bartlett MD 04/18/2019 10:41 AM Signed OTONEUROLOGY CONSULTATION Referral source: Andrea Vargas (Finance Controller), AP* Chief Complaint: Dizziness: Spinning vs swaying [...] the day. Went to talk to her regional business manager as she did not feel well. 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 Awme-am-iklb testing was normal bilaterally. Postural stability: Romberg: [...] [facility] T33 cc: Andrea Vargas ([facility]), EDITA Chen, * (sent via [employer] - to sec*) (Results of consultation to be transmitted via electronic medical record for those providers who practice within [facility] or with access to [employer] via MD Connect, or via letter) Total time of 81 minutes was spent with the patient regarding the above. Greater than 50% of time was spent on counselling. Referring Provider: ANDREA VARGAS ([facility]) [[id number]] Allergies As of Date: 04/18/2019 Noted Allergy [...] Encounter Status:Closed by MARIN BARTLETT MD on 04/18/19[facility] [id number] ID: [id number] Author: Marin Bartlett Service: ? Author Type: Physician Type: Progress Notes Filed: 04/18/2019 10:41 AM Note Text: OTONEUROLOGY CONSULTATION Referral source: Andrea Vargas ([facility]), AP* Chief Complaint: Dizziness: Spinning vs [...] the patient. Neck physical therapy: Sonia Se[place]. Vestibular rehabilitation afterward. Migraine: - Start magnesium [...] the day. Went to talk to her regional business manager as she did not feel well. 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 Nrdc-br-bqsn testing was normal bilaterally. Postural stability: Romberg: [...] [facility] T33 cc: Andrea Vargas ([facility]), EDITA Cehn, DO * (sent via [employer] - to sec*) (Results of consultation to be transmitted via electronic medical record for those providers who practice within [facility] or with access to [employer] via MD Connect, or via letter) Total time of 81 minutes was spent with the patient regarding the above. Greater than 50% of time was spent on counselling.NormalMercy Health Defiance HospitalCNOVon 33-39-4411MVQKYaycsn Visit (NEADMN) PRUDENCIO MIN ([id number]) 1995 F Date Time Provider Department 01/24/19 [...] seconds. Was eating prior to the event. [place] nauseated. Was tired after the event. Has [...] 5/5biceps, 5/5 wrist extension, and 5/5 hand field service tech. Finger extensor 5/5. Finger flexor 5/5. Pronation [...] jerk and symmetric Coordination: Finger-to- nose-finger and olzj-jp-qwnh intact bilaterally. No ataxia of arms. No [...] with more than 50% of the total wyya-xv-pqii time of the visit in counseling / coordination of care. There is no problem list on file for this patient. Office Visit on 01/24/19 - CONSULT TO NEUROLOGY Andrea Vargas MSN, SHAREPOINT APPLICATION DEVELOPER, SECTIONIZER-C 1. This office note has been dictated [...] Rash Date Reviewed: 01/24/2019 Reviewed by: Andrea ([facility]) Georgina - Fully Assessed Reason for Visit: Established Patient [175] Primary Visit Diagnosis:Dizziness [R42] Other Visit Diagnoses:Vertigo [R42] Near syncope [R55] Order(s):CONSULT TO NEUROLOGY [9019] Order #: [id number]: 1 Prescriptions as of 01/24/2019 Sig: CITALOPRAM 20 MG TABLET daily IBUPROFEN 800 MG TABLET Take 800 mg by mouth as neede* ERGOCALCIFEROL (VITAMIN D2) 5* Take 50,000 Units by mouth on* Problem List As Of Date: 01/24/2019 (None) Encounter Status:Closed by ANDREA VARGAS on 01/24/19[facility] [id number] ID: [id number] Author: Andrea Vargas Service: ? Author Type: [...] seconds. Was eating prior to the event. [place] nauseated. Was tired after the event. Has [...] 5/5biceps, 5/5 wrist extension, and 5/5 hand field service tech. Finger extensor 5/5. Finger flexor 5/5. Pronation [...] jerk and symmetric Coordination: Finger-to- nose-finger and rkon-ml-mffw intact bilaterally. No ataxia of arms. No [...] with more than 50% of the total wpgy-gr-xmka time of the visit in counseling / coordination of care. There is no problem list on file for this patient. Office Visit on 01/24/19 - CONSULT TO NEUROLOGY Andrea Vargas MSN, SHAREPOINT APPLICATION DEVELOPER, SECTIONIZER-C 1. 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] Other Visit Diagnoses:Orthostatic hypotension [I95.1] Orthostatic lightheadedness [R42] Tachycardia [R00.0] Order(s):INTERMITTENT PERIPHERAL DEVICE (CO,VT) [7433917] Order #: [id number]: 1 SALINE LOCK DISCONTINUE [1137628] Order #: [id number]: 1 Prescriptions as of 12/24/2018 Sig: CITALOPRAM 20 MG TABLET daily IBUPROFEN 800 MG TABLET Take 800 mg by mouth as neede* ERGOCALCIFEROL (VITAMIN D2) 5* Take 50,000 Units by mouth on* Problem List As Of Date: 12/24/2018 (None) Encounter Status:Closed by VINCE RUANO RN on 12/24/18[facility] West CampusEMILIOOLETElisa [id number] (NEAU) PRUDENCIO MIN ([id number]) 1995 F Date Time Provider Department 12/24/18 9:15 AM AUTONOMIC 1 NEUR MAIN SEBASTIAN During your visit today, we recorded the following information about you: Referring Provider: ANDREA VARGAS ([facility]) [[id number]] Allergies As of Date: 12/24/2018 Noted Allergy [...] Encounter Status:Closed by WAYNE BLAIR MD on 12/25/18[facility] CampusOBSOLETEProcedure (NEAU) PRUDENCIO MIN ([id number]) 1995 F Date Time Provider Department 12/24/18 7:45 AM AUTONOMIC 1 NEUR MAIN SEBASTIAN During your visit today, we recorded the following information about you: Referring Provider: ANDREA VARGAS ([facility]) [[id number]] Allergies As of Date: 12/24/2018 Noted Allergy [...] Encounter Status:Closed by WAYNE BLAIR MD on 12/25/18[facility] [id number] ID: [id number] Author: iVnce Ruano RN Service: ? Author Type: ? [...] Ruano RN Orders placed 11/29/2018 by Andrea Varags CNP Allergies: Amoxicillin; Penicillins Test done in [...] procedure: Vince Leone RN Procedure Finish Time: 1153NormalCThe Christ HospitalANA Panel 102-33-0788AHB by EIA0.4 OD RatioNormalLutheran Hospital on above:Result Comment: OD Ratio is interpreted as follows: Negative <1.0 Positive >=1.0Performed By: #### CMP, MMA, B12, COPPER, SEPG, CBC, ENAID, ANA1 #### [address] [phone] #### B1VIT #### [facility] [address] [place] [address] [phone] by EIA, QualNegativeNormalNegativeMercy Health Defiance Hospital Comment on above:Performed By: #### CMP, MMA, B12, COPPER, SEPG, CBC, ENAID, ANA1 #### [address] [phone] #### B1VIT #### [facility] [address] [place] [address] [phone] 10-69-5025Ndioeqwc nRBC<0.01Normal<0.01[facility] on above:Performed By: #### CMP, MMA, B12, COPPER, SEPG, CBC, ENAID, ANA1 #### [address] [phone] #### B1VIT #### [facility] [address] [place] [address] [phone] distribution width (RBC) [Ratio]14.4 %Szrhzh45.5-15.0 [facility] on above:Performed By: #### CMP, MMA, B12, COPPER, SEPG, CBC, ENAID, ANA1 #### [address] [phone] #### B1VIT #### [facility] [address] [place] [address] [phone] (Bld) [Volume fraction]40.5 %Qosbiq84.0-46.0Mer[facility] Health Defiance HospitalComment on above:Performed By: #### CMP, MMA, B12, COPPER, SEPG, CBC, ENAID, ANA1 #### [address] [place] [phone] #### B1VIT #### [facility] [address] [place] [address] [phone] (Bld) [Mass/Vol]12.6 g/yIClhgfd80.5-15.5CThe Christ HospitalComment on above:Performed By: #### CMP, MMA, B12, COPPER, SEPG, CBC, ENAID, ANA1 #### [address] [place] [phone] #### B1VIT #### [facility] [address] [place] [address] [phone] (RBC) [Entitic mass]25.7 pGLow26.0-34.0[facility] Comment on above:Performed By: #### CMP, MMA, B12, COPPER, SEPG, CBC, ENAID, ANA1 #### [address] [place] [phone] #### B1VIT #### [facility] [address] [place] [address] [phone] (RBC) [Mass/Vol]31.1 g/uFWsiynj68.5-36.0[facility] on above:Performed By: #### CMP, MMA, B12, COPPER, SEPG, CBC, ENAID, ANA1 #### [address] [place] [phone] #### B1VIT #### [place] [address] [phone] (RBC) [Entitic vol]82.7 jQJishcy08.0-100.0[facility] Hospitalment on above:Performed By: #### CMP, MMA, B12, COPPER, SEPG, CBC, ENAID, ANA1 #### [address] [place] [phone] #### B1VIT #### [facility] [address] [place] [address] [phone] mean volume (Bld) [Entitic vol]10.1 fLNormal9.0-12.7 [facility] Defiance HospitalComment on above:Performed By: #### CMP, MMA, B12, COPPER, SEPG, CBC, ENAID, ANA1 #### [address] [place] [phone] #### B1VIT #### [place] [address] [phone] (Bld) [#/Vol]352 10*3/sWLlwqml774-199IinccaltbMercy Health Defiance HospitalComment on above:Performed By: #### CMP, MMA, B12, COPPER, SEPG, CBC, ENAID, ANA1 #### [address] [place] [phone] #### B1VIT #### [place] [address] [phone] (Bld) [#/Vol]4.90 10*6/uLNormal3.90-5.20[facility] Memorial Hospitalment on above:Performed By: #### CMP, MMA, B12, COPPER, SEPG, CBC, ENAID, ANA1 #### [place] [phone] #### B1VIT #### [facility] [address] [place] [address] [phone] (Bld) [#/Vol]10.29 10*3/uLNormal3.70-11.00S[facility] Memorial Hospitalment on above:Performed By: #### CMP, MMA, B12, COPPER, SEPG, CBC, ENAID, ANA1 #### [facility] [address] [place], [place] [address] #### B1VIT #### [facility] [address] [place] [address] [phone] 41-51-2483KYPLXucfvk [facility] [address], [place] [address] November 29, 2018 To whom it may concern, This letter confirms Prudencio Min was seen today in the [facility] November 29, 2018. Sincerely, Staff of [facility]. ELECTRONICALLY SIGNED.NormalMercy Health Defiance HospitalCNOVon 91-28-2929AOES Office Visit (NEADMN) MINPRUDENCIO Butt ([id number]) 1995 F Date Time Provider Department 11/29/18 9:00 AM ANDREA VARGAS (POLICY INTERN) NEADMN During your visit today, we recorded [...] was referred to cardiology and neurologist. The underground repairer did an EKG, echo and holter monitor and per the patient it was normal. I have no records today. The underground repairer wanted to do a tilt table test. The underground repairer from [facility] sent her to us at [facility]. EEG was done locally that was [...] 5/5biceps, 5/5 wrist extension, and 5/5 hand field service tech. Finger extensor 5/5. Finger flexor 5/5. Pronation [...] of ankles. ? Coordination: Finger-to- nose-finger and tmqp-ru-lker intact bilaterally. No ataxia of arms. No [...] with more than 50% of the total mzov-ag-lgvw time of the visit in counseling / [...] ID -TILT TABLE EVALUATION Andrea Vargas MSN, SHAREPOINT APPLICATION DEVELOPER, SECTIONIZER-C 1. This office note has been dictated [...] monitor, MRI, EEG reports. Fax number is [phone] POTS Manual: Read the POTS manual online. [...] Tachycardia [R00.0] Order(s):METHYLMALONIC ACID [SQMMA] Order #: [id number] FUTURE VITAMIN B12 BLOOD [SQB12] Order #: [id number] FUTURE COMP METABOLIC PANEL [SQCMP] Order #: [id number] FUTURE CBC [SQCBC] Order #: [id number] FUTURE VITAMIN B1/THIAMINE, WHOLE BLD [CXU8VAE] Order #: [id number] FUTURE COPPER BLOOD [SQCOPPER] Order #: [id number] FUTURE PROTEIN ELECTROPHORESIS W/INTERP [SQSEPG] Order #: [id number] FUTURE GANGLIONIC NACHR ANTIBODY [SQGNGLAB] Order #: [id number] FUTURE MIKE PANEL BLOOD SCRN [SQANA1] Order #: [id number] FUTURE ANTI GINNY ID [SQENAID] Order #: [id number] FUTURE NEURO CARDIO AUTONOMIC REFLEX W/WO TILT [9926490] Order #: [id number] TILT TABLE EVALUATION [33353BKH] Order #: [id number]: 1 NEURO QSART [8945907] Order #: [id number] [] acetylcholine 10% solution - cchs compoundingDisp: [...] monitor, MRI, EEG reports. Fax number is [phone] POTS Manual: Read the POTS manual online. This will help you understand your POTS diagnosis, work with your medical team, and includes detailed instructions and tips for improved daily living with POTS. [email or web address] Prescriptions ordered this encounter Disp Refills Start End ACETYLCHOLINE 10% SOLUTION - [facility] CO* 11/29/2018 12/24/2018 Route: IRRIGATION Encounter Status:Closed by ANDREA VARGAS on 11/29/18[facility]alCNew[facility] Metabolic Panelon 14-62-6118Zpldsgp [Mass/Vol]3.7 g/dLLow3.9-4.9 [facility] Hospitalment on above:Performed By: #### CMP, MMA, B12, COPPER, SEPG, CBC, ENAID, ANA1 #### [facility] [address] [address] #### B1VIT #### [facility] [address] [place] [address] [phone] [Catalytic activity/Vol]90 U/ACrkgur68-010SskvbotujShelby Memorial Hospitalment on above:Performed By: #### CMP, MMA, B12, COPPER, SEPG, CBC, ENAID, ANA1 #### [facility] [address] [place] [address] #### B1VIT #### [facility] [address] [place] [address] [phone] [Catalytic activity/Vol]14 U/LNormal7-38[facility] on above:Performed By: #### CMP, MMA, B12, COPPER, SEPG, CBC, ENAID, ANA1 #### [place] [phone] #### B1VIT #### [facility] [address] [place] [address] [phone] gap [Moles/Vol]15 mmol/LNormal9-18[facility] Comment on above:Performed By: #### CMP, MMA, B12, COPPER, SEPG, CBC, ENAID, ANA1 #### [place] [phone] #### B1VIT #### [facility] [address] [place] [address] [phone] [Catalytic activity/Vol]13 U/XZsxubc85-90XqocshrrpLutheran Hospital on above:Performed By: #### CMP, MMA, B12, COPPER, SEPG, CBC, ENAID, ANA1 #### [place] [phone] #### B1VIT #### [facility] [address] [place] [address] [phone] [Mass/Vol]0.2 mg/dLNormal0.2-1.3CThe Christ Hospital Comment on above:Performed By: #### CMP, MMA, B12, COPPER, SEPG, CBC, ENAID, ANA1 #### [place] [phone] #### B1VIT #### [facility] [address] [place] [address] [phone] [Mass/Vol]9.3 mg/dLNormal8.5-10.2CThe [facility] Hospital Comment on above:Performed By: #### CMP, MMA, B12, COPPER, SEPG, CBC, ENAID, ANA1 #### [place] [phone] #### B1VIT #### [facility] [address] [place] [address] [phone] [Moles/Vol]102 mmol/EFqqzgi27-753AsdssfbsgMercy Health Defiance Hospital Comment on above:Performed By: #### CMP, MMA, B12, COPPER, SEPG, CBC, ENAID, ANA1 #### [place] [phone] #### B1VIT #### [facility] [address] [place] [address] [phone] [Moles/Vol]23 mmol/KAdecms95-12UpwzvvihuMercy Health Defiance HospitalComment on above:Performed By: #### CMP, MMA, B12, COPPER, SEPG, CBC, ENAID, ANA1 #### [place] [phone] #### B1VIT #### [address] [address] [phone] [Mass/Vol]0.58 mg/dLNormal0.58-0.96Mer[facility] Defiance HospitalComment on above:Performed By: #### CMP, MMA, B12, COPPER, SEPG, CBC, ENAID, ANA1 #### [place] [phone] #### B1VIT #### [facility] [address] [place] [address] [phone]- Amer.>60NormalCThe Christ HospitalComment on above:Performed By: #### CMP, MMA, B12, COPPER, SEPG, CBC, ENAID, ANA1 #### [place] [phone] #### B1VIT #### [facility] [address] [place] [address] [phone]/1.73 sq M predicted among non-blacks MDRD (S/P/Bld) [Vol rate/Area]mL/min/{1.73_m2}NormalMercy Health Defiance HospitalComment on above: Result Comment: eGFR (Estimated [...] B12, COPPER, SEPG, CBC, ENAID, ANA1 #### [facility] [place] [id number] #### B1VIT #### [facility] [address] [place] [address] [phone] [Mass/Vol]78 mg/tCPvbnmw33-71TcdhxtoctMercy Health Defiance Hospital Comment on above:Result Comment: The [place] Diabetes Association (ADA) provides guidance for cutoff [...] Standards of Medical Care in Diabetes 2016, [place] Diabetes Association. Diabetes Care. 2016.39(Suppl 1).Performed By: #### CMP, MMA, B12, COPPER, SEPG, CBC, ENAID, ANA1 #### [facility] [address] [place] [phone] #### B1VIT #### [facility] [address] [place] [address] [phone] [Moles/Vol]4.1 mmol/LNormal3.7-5.1CThe Christ HospitalComment on above:Performed By: #### CMP, MMA, B12, COPPER, SEPG, CBC, ENAID, ANA1 #### [place] [phone] #### B1VIT #### [facility] [address] [place] [address] [phone] [Mass/Vol]7.4 g/dLNormal6.3-8.0[facility] Comment on above:Performed By: #### CMP, MMA, B12, COPPER, SEPG, CBC, ENAID, ANA1 #### [place] [phone] #### B1VIT #### [place] [address] [phone] [Moles/Vol]140 mmol/EGksxhm388-823HfktnzrgdMercy Health Defiance Hospital Comment on above:Performed By: #### CMP, MMA, B12, COPPER, SEPG, CBC, ENAID, ANA1 #### [place] [phone] #### B1VIT #### [place] [address] [phone] nitrogen [Mass/Vol]9 mg/dLNormal7-21[facility] Comment on above:Performed By: #### CMP, MMA, B12, COPPER, SEPG, CBC, ENAID, ANA1 #### [place] [phone] #### B1VIT #### [facility] [address] [place] [address] [phone] 67-61-3429Tynmig470 ug/mYCdbham31-617OafwtzhczMercy Health Defiance HospitalComment on above:Result Comment: This test was developed and its performance characteristics determined by [facility] [place] ([facility]). It has not been cleared or approved by the FDA. -[facility] is regulated under CLIA as qualified to perform high-complexity testing. This test is used for clinical purposes. It should not be regarded as investigational or for research.Performed By: #### CMP, MMA, B12, COPPER, SEPG, CBC, ENAID, ANA1 #### [place] [phone] #### B1VIT #### [address] [address] [phone] Antibody Panelon 26-84-3297Ojccvwjswd<0.2Normal<1.0[facility] on above:Result Comment: NEGATIVE Negative: <1.0 AI Positive: >0.9 AIPerformed By: #### CMP, MMA, B12, COPPER, SEPG, CBC, ENAID, ANA1 #### [place] [phone] #### B1VIT #### [address] [address] [phone] Antibody<0.2Normal<1.0[facility] on above:Result Comment: NEGATIVE Negative: <1.0 AI Positive: >0.9 AIPerformed By: #### CMP, MMA, B12, COPPER, SEPG, CBC, ENAID, ANA1 #### [place] [phone] #### B1VIT #### [address] [address] [phone] 1 Antibody<0.2Normal<1.0[facility] on above:Result Comment: NEGATIVE Negative: <1.0 AI Positive: >0.9 AIPerformed By: #### CMP, MMA, B12, COPPER, SEPG, CBC, ENAID, ANA1 #### [place] [phone] #### B1VIT #### [facility] [address] [place] [address] [phone] PATIENT CARE TECHNICIAN<0.2Normal<1.0[facility] on above:Result Comment: NEGATIVE Negative: <1.0 AI Positive: >0.9 AIPerformed By: #### CMP, MMA, B12, COPPER, SEPG, CBC, ENAID, ANA1 #### [place] [phone] #### B1VIT #### [address] [address] [phone] Antibody<0.2Normal<1.0[facility] on above: Result Comment: NEGATIVE Negative: <1.0 AI Positive: >0.9 AIPerformed By: #### CMP, MMA, B12, COPPER, SEPG, CBC, ENAID, ANA1 #### [place] [phone] #### B1VIT #### [address] [address] [phone] IgG Ab<0.2Normal<1.0[facility] on above:Result Comment: NEGATIVE Negative: <1.0 AI Positive: >0.9 AIPerformed By: #### CMP, MMA, B12, COPPER, SEPG, CBC, ENAID, ANA1 #### [address] [address] #### B1VIT #### [address] [address] [phone] Antibody<0.2Normal<1.0[facility] on above: Result Comment: NEGATIVE Negative: <1.0 AI Positive: >0.9 AIPerformed By: #### CMP, MMA, B12, COPPER, SEPG, CBC, ENAID, ANA1 #### [address] [place] [address] #### B1VIT #### [facility] [address] [place] [address] [phone] Antibody<0.2Normal<1.0[facility] on above: Result Comment: NEGATIVE Negative: <1.0 AI Positive: >0.9 AIPerformed By: #### CMP, MMA, B12, COPPER, SEPG, CBC, ENAID, ANA1 #### [facility] [address] [place] [phone] #### B1VIT #### [facility] [address] [place] [address] [phone] Antibody<0.2Normal<1.0[facility] on above: Result Comment: NEGATIVE Negative: <1.0 AI Positive: >0.9 AIPerformed By: #### CMP, MMA, B12, COPPER, SEPG, CBC, ENAID, ANA1 #### [place] [address]16730 [place] [phone] #### B1VIT #### [facility] [address] [place] [address] [phone] nAChR Abon 79-75-9358Ltqwgmemzm nAChR Ab(NOTE)Normal [facility] on above:Result Comment: INTERPRETATION NEGATIVE This test [...] Recommendations: Health care providers, please contact the [employer] Client Services Department at if you wish to speak with a clinical home service consultant regarding this test result. Other testing available: [employer] recommends additional testing, if not already performed. [employer] currently offers the following antibody tests: anti-Hu, anti-Yo, anti-Zic4, anti-CV2, anti-Ma1, anti-Ta, anti-Ri, anti-Recoverin, anti-VGCC, anti-VGKC, anti-Amphiphysin, anti-NMDA, anti-GAD65, anti-LGI1, and anti-CASPR2. Please contact the [employer] Client Services Department or visit [employer] for information regarding additional testing that may [...] al. (2006) Semin Oncol 33: 270-98. (PMID: 45418745) 2. MAGDALENA Salinas, et al. (2011) Eur J Neurol 18: 19-e3. (PMID: 70386796) 3. Joanna Cabrera, et al. (2012) J Neurol Neurosurg Psychiatry 83: 638-45. (PMID: 70256786) 4. MR Maicol, et al. (2010) Oncologist 15: 603-17. (PMID: 26239494) 5. Carmelo Pena et al. (2008) Lancet Neurol 7: 327-40. (PMID: 58654610) 6. Carmelo Fredeirck et al. (2007) Orphanet J Rare Dis 2: 22. (PMID: 48868964) 7. Daquan Stokes et al. (2000) N Engl J Med 343: 847-55. (PMID: 60189233) This test was developed and its analytical performance characteristics have been determined by [employer]. It has not been cleared or approved by the U.S. Food and Drug Administration. This assay has been validated pursuant to the CLIA regulations and is used for clinical purposes. Laboratory oversight provided by Vince Mcfarlane, Ph.D., [facility], CLIA license ma, [employer] (CLIA# [id number]) Testing performed at: [employer] [address] [place] [id number] By: #### CMP, MMA, B12, COPPER, SEPG, CBC, ENAID, ANA1 ####[facility] [place], [place] [phone]#### B1VIT ####[facility] [address] [place] [address] [phone] Acid on 09-67-6627Mzrjbawagqaby Xntn187 nmol/IEsrflw46-679FkyufrpojMercy Health Defiance Hospital Comment on above:Result Comment: This test was developed and its performance characteristics determined by [facility]'s [facility] Pathology [facility] Laboratory [facility] [place] ([facility]). It has not been cleared or approved by the FDA. [facility] is regulated under CLIA as qualified to perform high-complexity testing. This test is used for clinical purposes. It should not be regarded as investigational or for research.Performed By: #### CMP, MMA, B12, COPPER, SEPG, CBC, ENAID, ANA1 ####[facility] [address] [place], [place] [phone]#### B1VIT ####[facility] [address] [place], [place] [phone] 14-17-0442LCCKGFHJRUJ ID: [id number] Author: Andrea Vargas Service: (none) Author Type: [...] was referred to cardiology and neurologist. The underground repairer did an EKG, echo and holter monitor and per the patient it was normal. I have no records today. The underground repairer wanted to do a tilt table test. The underground repairer from [facility] sent her to us at [facility]. EEG was done locally that was [...] 5/5biceps, 5/5 wrist extension, and 5/5 hand field service tech. Finger extensor 5/5. Finger flexor 5/5. Pronation [...] of ankles. ? Coordination: Finger-to- nose-finger and yvfk-ty-rvgr intact bilaterally. No ataxia of arms. No [...] with more than 50% of the total kape-ko-vnom time of the visit in counseling / [...] ID -TILT TABLE EVALUATION Andrea Vargas MSN, SHAREPOINT APPLICATION DEVELOPER, SECTIONIZER-C 1. This office note has been dictated [...] be at the discretion of your PCP/referring physicianTrinity Health System West CampusProtein Electrophor.on 37-48-6207Qsmyhyf [Mass/Vol]3.26 g/dLLow3.37-4.23[facility] Comment on above:Performed By: #### CMP, MMA, B12, COPPER, SEPG, CBC, ENAID, ANA1 ####[place] [address]64[address] [place], [place] [phone]#### B1VIT ####[facility] [address] [place], [place] [phone] 1 Globulin0.27 gm/dLNormal0.18-0.31Mer[facility] Defiance HospitalComment on above:Performed By: #### CMP, MMA, B12, COPPER, SEPG, CBC, ENAID, ANA1 ####[facility] [address] [place], [place] [phone]#### B1VIT ####[facility] [address] [place], [place] [phone] 2 Globulin0.81 gm/dLNormal0.52-0.97Mer[facility] Defiance HospitalComment on above:Performed By: #### CMP, MMA, B12, COPPER, SEPG, CBC, ENAID, ANA1 ####[facility] [address] [phone]#### B1VIT ####[facility] [address] [phone] Globulin1.16 gm/dLNormal0.84-1.36[facility] Hospitalment on above:Performed By: #### CMP, MMA, B12, COPPER, SEPG, CBC, ENAID, ANA1 ####[place] [phone]#### B1VIT ####[address] [phone] Globulin1.50 gm/dLHigh0.70-1.44[facility] on above:Performed By: #### CMP, MMA, B12, COPPER, SEPG, CBC, ENAID, ANA1 ####[place] [phone]#### B1VIT ####[address] [phone] COMMENTNormalCThe Christ Hospital Comment on above:Result Comment: No definitive M protein is identified on protein electrophoresis.Performed By: #### CMP, MMA, B12, COPPER, SEPG, CBC, ENAID, ANA1 ####[address] [phone]#### B1VIT ####[address] [phone] Tigre Concentratn0.00 gm/dLNormal0.00[facility] on above:Performed By: #### CMP, MMA, B12, COPPER, SEPG, CBC, ENAID, ANA1 ####[address] [phone]#### B1VIT ####[address] [phone] [Mass/Vol]7.0 g/dLNormal6.0-8.4CNorwalk Memorial Hospital on above:Performed By: #### CMP, MMA, B12, COPPER, SEPG, CBC, ENAID, ANA1 ####[address] [phone]#### B1VIT ####[address] [phone] [Mass/Vol]N/ANormalCNorwalk Memorial Hospital on above:Performed By: #### CMP, MMA, B12, COPPER, SEPG, CBC, ENAID, ANA1 ####[address] [phone]#### B1VIT ####[address] [phone] Staff ReviewReviewed by Carrington Akers MD ([id number])[facility] on above:Performed By: #### CMP, MMA, B12, COPPER, SEPG, CBC, ENAID, ANA1 ####[address] [phone]#### B1VIT ####[address] [phone] B1,Whole Bldon 53-12-8700Lyhkrth B1 Whole Khb088 nmol/EVnocbw61-469EloavgcfnLutheran Hospital on above:Result Comment: (NOTE) INTERPRETIVE INFORMATION: Vitamin B1, Whole Blood This assay measures the concentration of thiamine diphosphate (TDP), the primary active form of vitamin B1. Approximately 90 percent of vitamin B1 present in whole blood is TDP. Thiamine and thiamine monophosphate, which comprise the remaining 10 percent, are not measured. Test developed and characteristics determined by [employer]. See Compliance Statement B: [employer]/CS Performed by [employer], [address] [place] [id number] [email or web address], Nam Andres MD, Lab. DirectorPerformed By: #### CMP, MMA, B12, COPPER, SEPG, CBC, ENAID, ANA1 ####[facility] [address] [place], [place] [phone]#### B1VIT ####[facility] [address] [place], [place] [phone] B12on 21-56-7633Fxnwbbxxh (Vitamin B12) [Mass/Vol]419 pg/aBMdtdom870-4433Yrtltmwqh [facility] on above:Performed By: #### CMP, MMA, B12, COPPER, SEPG, CBC, ENAID, ANA1 #### [facility] [address] [place], [place] [address] #### B1VIT #### [facility] [address] [place] [address] [phone] Vital Signs Date TimeVital SignValuePerforming ExoqejignSfznubbt11-25-7683 09:58-0400Body .9 cmCorey Connie DO Work Phone: [phone] CenterTcywptfzzs63-53-6496 09:58-0400Body mass index (BMI) [Ratio]50.26 kg/i9Rkuuh Connie DO Work Phone: [phone] HospitalLursicqjmy09-13-0772 09:58-0400Body cwmxyb721.66 kgCorey Connie DO Work Phone: [phone] Medical CenterBtdglfivrk17-60-1726 09:58-0400Diastolic blood yotmfsag84 mm[Hg]Mark Connie DO Work Phone: [phone] County Memorial HospitalRtefxgqtng05-59-8823 09:58-0400Systolic blood mm[Hg]Mark Connie DO Work Phone: [phone] County Memorial HospitalPsoftrzusd18-16-2605 13:13-0400Body .9 Akhil LIEBERMAN Work Phone: [phone] County Memorial HospitalXtszcomhgr64-26-2487 13:13-0400Body mass index (BMI) [Ratio]49.88 kg/m2Megha Shaw PA Work Phone: [facility] CenterOpfbwmpijv82-67-0005 13:13-0400Body fcgyjk008.75 kgMegha Shaw PA Work Phone: [facility] CenterRhuevgqdta49-94-9626 13:13-0400Diastolic blood vvoameot82 mm[Hg]Megha Shaw PA Work Phone: [facility] CenterEvurkauxra67-97-8825 13:13-0400Systolic blood ylzepmkw236 mm[Hg]Megha Shaw PA Work Phone: [facility] CenterTjnxerhfcf51-27-2720 10:33-0400Body ofyank553.9 cmCorey Connie DO Work Phone: [phone] [place], [place] [address]Ebwmnokfnn14-38-2173 10:33-0400Body mass index (BMI) [Ratio]49.88 kg/x8Eprsa Connie DO Work Phone: [phone] [place], [place] [address]Dctzavufhh09-53-2011 10:33-0400Body okmmzp192.75 kgCorey Connie DO Work Phone: [facility] CenterAfxmxwouct47-42-0693 10:33-0400Diastolic blood ffgfetwo87 mm[Hg]Mark Connie DO Work Phone: [phone] [place], [place] [address]Jnhyjzblna53-96-8034 10:33-0400Systolic blood mm[Hg]Mark Connie DO Work Phone: [facility] CenterEfazimmsmj48-95-2575 11:21-0400Diastolic blood kzqgifan39 mm[Hg]Janine Funez MD Work Phone: [phone] [facility] CenterBbnesh41-34-1063 11:21-0400Heart rate72 /minJanine Funez MD Work Phone: [phone] [facility] CenterQvtfeb44-31-6465 11:21-0400 Respiratory rate16 /minJanine Funez MD Work Phone: [phone] [facility] CampusDrFirst [facility] Medical CenterIzmbma96-67-0339 11:21-8627OrL8% (BldA) [Mass fraction]95 %Janine Funez MD Work Phone: [phone] [facility] CampusCooper's ClassicsRmoiaj52-14-3736 11:21-0400Systolic blood arlyjncc874 mm[Hg]Janine Funez MD Work Phone: [phone] [facility] CampusCooper's ClassicsUkmnxl70-89-9503 10:10-0400Body wuycwr295.9 cmJanine Funez MD Work Phone: [phone] [facility] CampusCooper's ClassicsFtmccw54-00-6877 10:10-0400Body mass index (BMI) [Ratio]49.32 kg/l8YyifdqJanine Funez MD Work Phone: [phone] [facility] CampusDrFirst [facility] CampusCooper's ClassicsNnohci68-77-7011 10:10-0400Body ghggjliwgkk38.3 [degF]Janine Funez MD Work Phone: [phone] [facility] CampusDrFirst [facility] CampusCooper's ClassicsXagivp30-86-6801 10:10-0400Body qmadvh362.39 kgJanine Funez MD Work Phone: [phone] [facility] CampusCooper's ClassicsIhsqla29-07-1572 10:05-0400Body mass index (BMI) [Ratio]50.98 kg/x4Pzwzo Connie DO Work Phone: [facility] CenterNzbdfdohzn04-27-6729 10:05-0400Body qfhaje127.38 kgCorey Connie DO Work Phone: [facility] CenterRrbmeoeeab47-93-4840 10:05-0400Diastolic blood xbpgowtx56 mm[Hg]Mark Connie DO Work Phone: [facility] Medical CenterYmskpqypsc36-84-1766 10:05-0400Systolic blood jawsdzmv982 mm[Hg]Mark Connie DO Work Phone: [facility] Medical CenterTqpymlytwn31-04-8275 09:05-0400Body .94 cmBailee Myers DO Work Phone: [facility]05-24-2025 09:05-0400 Body kepeusktgib48.3 [degF]Bailee Myers DO Work Phone: [phone] [place], [place] 6298805-24-2025 09:05-0400 Body gmwrye891.6 kgBailee Myers DO Work Phone: [phone] [place], [place] 6298805-24-2025 09:05-0400 Diastolic blood mm[Hg]Bailee Myers DO Work Phone: [phone] [place], [place] 6298805-24-2025 09:05-0400 Heart rate91 /minBailee Myers DO Work Phone: [phone] [place], [place] 6298805-24-2025 09:05-0400 Respiratory rate20 /minBailee Carter DO Work Phone: [phone]05-24-2025 09:05-0400 SaO2% (BldA) [Mass fraction]98 %Bailee Myers DO Work Phone: [phone] [place], [place] 6298805-24-2025 09:05-0400 Systolic blood piajxztu013 mm[Hg]Bailee Myers DO Work Phone: [phone] [place], [place] 6298802-16-2025 05:00-0500 Diastolic blood ogtxhrxj40 mm[Hg][facility] 11-23-2024 05:00-0500Heart rate79 /minWay[facility] HealthCare [facility]02-16-2025 05:00-0500Mean blood kctlaate689 mm[Hg][facility]02-16-2025 05:00-6572LsZ5% (BldA) [Mass fraction]98 %[facility]02-16-2025 05:00-0500Systolic blood pressure 140 mm[Hg][facility]02-16-2025 04:00-0500 Diastolic blood mm[Hg][facility] 11-23-2024 04:00-0500Heart rate84 /minWay[facility]Care [facility]02-16-2025 04:00-0500Mean blood kdjjlbpe70 mm[Hg][facility]02-16-2025 04:00-9673YyQ1% (BldA) [Mass fraction]96 %[facility]02-16-2025 04:00-0500Systolic blood pressure 122 mm[Hg][facility]02-16-2025 03:56-0500 Diastolic blood aahbpkys23 mm[Hg][facility] 11-23-2024 03:56-0500Heart rate83 /minWay[facility]02-16-2025 03:56-0500Mean blood xlotszao790 mm[Hg][facility]02-16-2025 03:56-0500Nursing Progress Note ReasonOther: up to bathroom and back to bed. urine obtained. [facility]02-16-2025 03:56-4852YkT4% (BldA) [Mass fraction]95 %[facility]02-16-2025 03:56-0500Systolic blood xalnqcwu912 mm[Hg][facility]02-16-2025 03:05-0500Body xfdubtfqghx28.34 [degF][facility]02-16-2025 03:05-0500Heart rate87 /minWay[facility] HealthCare [facility]02-16-2025 03:05-0500Respiratory rate20 /minWayne HealthCare [facility] Campus09-04-2024 09:44-0400Body uyfjva935.94 cmDNP Elizabeth Cruz Work Phone: [facility]09-04-2024 09:44-0400 Body mass index (BMI) [Ratio]52.7 kg/m2DNP Elizabeth Cruz Work Phone: [facility]09-04-2024 09:44-0400 Body zbywufqigcf91.4 [degF]DNP Elizabeth Kaple Work Phone: [phone] [place], [place] 7366209-04-2024 09:44-0400 Body .55 kgDNP Elizabeth Kaple Work Phone: [phone] [place], [place] 7366209-04-2024 09:44-0400 Diastolic blood dojwnauv73 mm[Hg]DNP Elizabeth Kaple Work Phone: [phone] [place], [place] 7366209-04-2024 09:44-0400 Heart rate79 /minDNP Elizabeth Kaple Work Phone: [phone] [place], [place] 7366209-04-2024 09:44-0400 SaO2% (BldA) [Mass fraction]95 %DNP Elizabeth Kaple Work Phone: [phone] [place], [place] 7366209-04-2024 09:44-0400 Systolic blood mm[Hg]DNP Elizabeth Kaple Work Phone: [phone] [place], [place] 7366203-28-2024 11:32-0400 Body cmiwry133.94 cmDNP Elizabeth Kaple Work Phone: [phone] [place], [place] 7366203-28-2024 11:32-0400 Body mass index (BMI) [Ratio]53.5 kg/m2DNP Elizabeth Kaple Work Phone: [phone] [place], [place] 7366203-28-2024 11:32-0400 Body .48 kgDNP Elizabeth Kaple Work Phone: [phone])[address] [place], [place] 7366203-28-2024 11:32-0400 Diastolic blood mm[Hg]DNP Elizabeth Kaple Work Phone: [phone] [place], [place] 7366203-28-2024 11:32-0400 Heart rate94 /minDNP Elizabeth Kaple Work Phone: [phone] [place], [place] 7366203-28-2024 11:32-0400 SaO2% (BldA) [Mass fraction]98 %DNP Elizabeth Nancy Work Phone: [phone] [place], [place] 9224203-28-2024 11:32-0400 Systolic blood wgxarksp603 mm[Hg]DNP Elizabeth Nancy Work Phone: [phone] [place], [place] 9224203-13-2024 12:49-0400 Blood Pressure LocationFRANCNGOC SON [phone]-BiufjSelect Medical [facility] Tvof42-05-7823 12:49-0400Body hounmkczaqc185.22 [degF][facility] [phone]-MbfgiSelect Medical [facility] Wyqx15-87-6774 12:49-0400Diastolic blood mpawzxsh98 mm[Hg][facility]ILITYTI[facility] [phone]-CvpctSelect Medical [facility] Tgsn03-81-1119 12:49-0400Heart cgzc782 /minFRANCNGOC POPETIZ 101-4802Fufiix-FbqavSelect Medical [facility] Hcwi27-76-7596 12:49-1798RxS5% (BldA) [Mass fraction]97 %[facility] 105-8282Vgemzb-OgsnpSelect Medical [facility] Ulue49-31-2876 12:49-0400Systolic blood axdcqpyq885 mm[Hg][facility] [phone]-QshnzSelect [facility] Bkod96-51-7129 14:06-0500Body crvgec488.94 cmDNP Elizabeth Nancy Work Phone: [phone] [place], [place] 9224202-27-2024 14:06-0500 Body mass index (BMI) [Ratio]53.9 kg/m2DNP Elizabeth Cruz Work Phone: 1(421)1-[facility]02-27-2024 14:06-0500 Body .47 kgDNP Elizabeth Cruz Work Phone: [phone]02-27-2024 14:06-0500 Diastolic blood mayrrdsn32 mm[Hg]DNP Elizabeth Cruz Work Phone: 1(638)[address] [place], [place] 7366202-27-2024 14:06-0500 Heart rate95 /minDNP Elizabeth Cruz Work Phone: [phone])[address] [place], [place] [id number] 14:06-0500 Respiratory rate18 /minDNP Elizabeth Cruz Work Phone: 1(774)[address] [place], [place] [id number] 14:06-0500 SaO2% (BldA) [Mass fraction]97 %DNP Elizabeth Cruz Work Phone: 1(117)[address] [place], [place] 7366202-27-2024 14:06-0500 Systolic blood jfdfzzyy079 mm[Hg]DNP Elizabeth Cruz Work Phone: 1(445)[address] [place], [place] 7366208-11-2023 20:45-0400 Diastolic blood mm[Hg]Mirza Mcmullen [employer]ARE[employer] APPLICATION DEVELOPER - POLICY INTERN Work Phone: [employer]08-11-2023 20:45-0400Heart rate88 /Tameka Mcmullen [employer]AREPOINT APPLICATION DEVELOPER - POLICY INTERN Work Phone: [employer] SECGENWI [id number] 20:45-0400 Respiratory rate21 /Tameka Mcmullen [employer]AREPOINT APPLICATION DEVELOPER - POLICY INTERN Work Phone: [phone] [id number] 20:45-6393AvI3% (BldA) [Mass fraction]99 %Mirza Mcmullen [employer] APPLICATION DEVELOPER - POLICY INTERN Work Phone: [phone]08-11-2023 20:45-0400Systolic blood ryymwole508 mm[Hg]Mirza Mcmullen [employer] APPLICATION DEVELOPER - POLICY INTERN Work Phone: [phone] [facility] [id number] 19:50-0400Body byovnu721.9 Darryn Mcmullen [employer]ARE[employer] APPLICATION DEVELOPER - POLICY INTERN Work Phone: [phone] [employer]08-11-2023 19:50-0400Body mass index (BMI) [Ratio]47.61 kg/m2Mirza Mcmullen APRN - POLICY INTERN Work Phone: bon [facility]08-11-2023 19:50-0400Body kqhzriihtjz51.2 [degF]Mirza Mcmullen APRN - POLICY INTERN Work Phone: bon [facility]08-11-2023 19:50-0400Body omkged444.31 kgMirza Mcmullen APRN - POLICY INTERN Work Phone: bon [facility]07-08-2023 13:36-0400Body kpehpijeoeg27.7 [degF]Barak Greer [address] [place], [place] 2351007-08-2023 13:36-0400 Diastolic blood pjjyymgp05 mm[Hg]Barak Greer [address]07-08-2023 13:36-0400Heart rate79 /Jean-Claude Greer [address] [place], [place] 2351007-08-2023 13:36-0400 Respiratory rate18 /Jean-Claude Greer [address] [place], [place] 2351007-08-2023 13:36-2106HqI1% (BldA) [Mass fraction]98 %Barak Greer [address] [place], [place] 2351007-08-2023 13:36-0400 Systolic blood njdrrebw186 mm[Hg]Barak Greer [address] [place], [place] 2351007-30-2022 02:27-0400 Diastolic blood kikspqhl72 mm[Hg]Carolynjavan Castanodamaris [address] [place], [place] 2351007-30-2022 02:27-0400Heart rate85 /minTiffanie Dokken [facility]07-30-2022 02:27-0400Mean blood wgzapprr60 mm[Hg]Kaylinn Dokken [address] [place], [place] 4092307-30-2022 02:27-0400 Systolic blood mm[Hg]Tiffanie Dukes [address] [place], [place] 4092307-30-2022 00:59-0400Body raatsqqevop73.88 [degF]Tiffanie Dukes [address] [place], [place] 4092307-30-2022 00:59-0400 Diastolic blood hjoupigm96 mm[Hg]Tiffanie Dukes [address] [place], [place] 4092307-30-2022 00:59-0400Heart kknf042 /Michael Dukes [address] [place], [place] 4092307-30-2022 00:59-0400 Respiratory rate20 /Michael Dukes [address] [place], [place] 4092307-30-2022 00:59-0314IbK3% (BldA) [Mass fraction]98 %Tiffanie Dukes [address] [place], [place] 4092307-30-2022 00:59-0400 Systolic blood gzlscysz591 mm[Hg]Tiffanie Dukes [address] [place] [address] Encounters Encounter DateEncounter TypeCare ProviderFacilityStart: 07-28-2025 End: 64-07-2815Lmvhcxi encounter procedureCorey ConnieLikva Phone: [facility] OBGYNComment on above:Pre-op examination; Menorrhagia with regular cycle; Abnormal uterine bleeding; Pelvic pain in female; Cyst of right ovaryStart: 07-28-2025 End: 50-55-1156Kmltluklujank examination doneCorey ConnieLikva Phone: [facility] HealthcareStart: 07-28-2025 End: 16-17-0338ldhcztdxsiSSYRA FAZIONot AvailableStart: 07-28-2025 End: 51-17-5053Gxyhqbot ReferredCorey Connie-LAB Path Spec [facility] HospStart: 06-17-2025 End: 39-12-7320Npevbf flowsHenrietta LIEBERMAN Work Phone: [facility] [place] OBGYNStart: 06-17-2025 End: 83-95-6504Btkxvz flowsheetMegha LIEBERMAN Work Phone: [facility] OBGYNStart: 06-17-2025 End: 25-10-3323Musqdv outpatient visit 15 minutesAmy Colin LIEBERMAN Work Phone: [facility] [place] OBGYNComment on above:Weight gain; Encounter to discuss test results; Encounter for weight managementStart: 06-17-2025 End: 87-70-5007szjicprumzQSY Sohail AvailableStart: 06-09-2025 End: 63-28-5504tsoyrizovpKDORW FAZIONot AvailableStart: 05-21-2025 End: 74-17-4991Zhrkrp flowsheetCorey Connie DO Work Phone: [facility] [place] OBGYNStart: 05-21-2025 End: 54-48-1108Mtokyg flowsheetCorey Connie DO Work Phone: [facility] [place] OBGYNStart: 05-21-2025 End: 34-12-6798Fkcabc outpatient visit 15 minutesCorey Connie DO Work Phone: [facility] [place] OBGYNComment on above:Hospital discharge follow-up; Cyst of right ovary; Pelvic pain in female; Encounter for management of menstrual issue; Encounter for weight managementStart: 05-21-2025 End: 70-97-5927yzmaogpruhDYNFZ FAZIONot AvailableStart: 03-20-2025 End: 68-40-2058qywdfgahyhWTGIDF [facility] Hospitaltart: 03-20-2025 End: 56-72-8683Ipeiffmzjf hospital visit by Grabiel Funez MD Work Phone: [facility] CT ScanComment on above:Blood per rectum; Left lower quadrant abdominal painStart: 03-19-2025 End: 96-62-9516qqsypiavunQFGXAPVeterans Health [facility] Phoenixtart: 03-19-2025 End: 02-93-6229Xqzaguwmbx hospital visit by physicianJanine Funez MD Work Phone: [facility] ORComment on above:Blood per rectum Start: 03-05-2025 End: 04-81-4630Lryrdp flowsheetCorey Connie DO Work Phone: [facility] BCP OBStart: 03-05-2025 End: 89-99-0570Magbfq flowsheetCorey Connie DO Work Phone: [facility] BCP OBStart: 03-05-2025 End: 94-09-4803Sfbymsoaz Result EncounterCorey Connie DO Work Phone: n[facility] External Department UnsolicitedStart: 03-05-2025 End: 86-51-7171Bljtyizn Result EncounterCorey Connie DO Work Phone: n[facility] External Department UnsolicitedStart: 03-05-2025 End: 71-56-1590Zkznijv encounter procedureCorey Connie DO Work Phone: [facility] Work Phone: Start: 03-05-2025 End: 21-96-1849Hxmkigyu preventive med est patient 18-39 yrsCorey Connie DO Work Phone: [facility] OBComment on above:Well woman exam with routine gynecological exam; Pain in female genitalia on intercourse; Upper back painStart: 03-05-2025 End: 69-08-5618tjnqrwskblLAAYS FAZIONot AvailableStart: 02-28-2025 End: 88-34-3103Dugewodmn department patient visitGregory Carter DO Work Phone: [facility] Work Phone: Start: 11-23-2024 End: 06-41-9890Xczdsucbu department patient visitAstrit Clyde AggarwalariFacility:[facility] Start: 06-11-2024 End: 18-21-1719pswhqukbctEQN Jennifer Kaple Work Phone: [facility] Work Phone: Start: 06-11-2024 End: 86-82-0378Iboeuij encounter procedureDNP Elizabeth Cruz Work Phone: [facility] [place] Work Phone: Start: 01-03-2024 End: 82-95-1080eutobrddmkBKK Elizabeth Cruz Work Phone: [facility] Work Phone: Start: 01-03-2024 End: 76-72-2056Mnkunbr encounter procedureDNP Elizabeth Cruz Work Phone: [facility] Work Phone: Start: 12-28-2023 End: 26-37-9706qwmepzupxiBVN Jennifer Kaple Work Phone: [facility] Work Phone: Start: 12-28-2023 End: 92-93-5246Uwmsoel encounter procedureDNP Elizabeth Cruz Work Phone: [facility]art: 12-19-2023 End: 20-48-4525Kbu Drop offFRANCISCO SON [facility] Start: 12-19-2023 End: 33-46-3089Zooxdrf encounter procedureFRANCISCO SON [phone]-JmwbfSelect [facility] Start: 12-04-2023 End: 45-01-7587Xhkmnky encounter procedureDNP Elizabeth Cruz Work Phone: [facility] Family [facility] [place] Work Phone: Start: 05-24-2023 End: 22-56-4705Lkoigblcov hospital visit by physicianPhone Pre Admission Testing [facility] Pre-Admission TestingComment on above:No ShowStart: 05-18-2023 End: 43-27-2253Cevacekfe department patient visitSara Elías [employer] APPLICATION DEVELOPER - POLICY INTERN Work Phone: [facility] EDComment on above:Calculus of gallbladder without cholecystitis without obstruction (Primary Dx)Start: 04-14-2023 End: 11-80-8209Roypftevd department patient visitBarak Greer [facility] Start: 11-13-2022 End: 62-82-4502kilgmbppnqPV RAMON PAY .Facility:V3Sawrs: 11-09-2022 End: 32-39-2658nolrhidgszWQ MARK CONNIE .Facility:C2Otpvx: 93-73-4509Mnhvhonhg for preprocedural laboratory examinationDR MARK CONNIE .[facility] Start: 11-07-2022 End: 56-20-5399hwvvcxzemqQH MARK CONNIE .Facility:P1Jawmg: 11-07-2022 End: 05-08-0665Bvyxwgvkx for preprocedural laboratory examinationDR MARK CONNIE .Facility:J4Jfujj: 38-85-9989Oaujdkanu for other preprocedural examinationDR MARK CONNIE .[facility]tart: 10-30-2022 End: 74-03-0517tyywamlpgnVCWIJQ SNYDERFacility:J8Myurs: 10-30-2022 End: 47-79-2264Helzasmmh for other preprocedural examinationANGELA TRIANA Facility:U1Pzvwn: 09-22-2022 End: 50-83-4225vvcxhzgrweXM MARK CONNIE .Facility:G8Dfnqe: 09-18-2022 End: 53-09-3199Vjdipygwjw and management of inpatientDR MARK CONNIE .Facility:H1 Start: 09-15-2022 End: 36-51-6022qbtvwdastvAZ MARK CONNIE .Facility:K1Vcwar: 08-29-2022 End: 38-66-3391luouhsqjlsRN MARK CONNIE .Facility:E0Cilnm: 08-21-2022 End: 15-87-3943wqfabxdulsJV BAILEE SKINNER .Facility:M5Zztki: 08-07-2022 End: 96-21-6051bjxmfonccgKE MARK CONNIE .Facility:L5Anxdz: 07-06-2022 End: 83-23-1144owblvclnbyLT MARK CONNIE .Facility:D0Ektgh: 06-14-2022 End: 11-73-8389vqxbawnpunXL MARK CONNIE .Facility:H2Gytmn: 06-10-2022 End: 38-85-1531umuvzuhbbyOZ MARK CONNIE .Facility:G6Wifvs: 05-16-2022 End: 24-80-6026rorcozpggrQB MARK CONNIE .Facility:I1Xfwjv: 05-06-2022 End: 77-75-2870Kunzonmlo department patient visitTiffanie Montes De Oca Roseline [facility] Start: 04-01-2022 End: 44-95-6678zabwvprobyMF NONE LISTED REQUESTFacility:H0Ccrvh: 03-08-2022 End: 09-73-5372tlzdnclnbcRL MARK CONNIE .Facility:K3Foaod: 02-17-2022 End: 98-02-6456javkujcmszUZ MARK CONNIE .Facility:Y3Eiolo: 01-25-2022 End: 80-67-4046yuheqeqxnxCX MARK CONNIE .Facility:Z8Twqmi: 03-14-2018 End: 76-90-0556Otzpmrpzbuog Rebekah Walton CNP Work Phone: [facility] Procedures DateProcedureProcedure DetailPerforming ClinicianStart: 64-17-3242Qeush test visual color cmprsn methsCorejose alejandro Rosales DO Work Phone: Start: 30-65-8878Hotmg test visual color cmprsn Gregory Funez MD Work Phone: Start: 63-96-3234KsfqbcstnhsUcnhzj Khallafi MD Work Phone: Start: 01-50-3995TWRHTUOJU VAGINITIS (HTRX)Mark Rosales DO Work Phone: Start: 90-30-4699OTD,APTIMA HPV,AGE GDLNCorejose alejandro Rosales DO Work Phone: Start: 76-31-4270Smpmqmcral examination of kneeDNP Elizabeth Cruz Work Phone: Start: 08-60-7930Zmkh cerv/vag auto thin layer prep mnl screenCorey Connie CHAPMAN Work Phone: Start: 98-25-5560Zg abdominal real time w/image limitedHoptevin Rios PA-C Work Phone: Start: 91-86-4878Nio routine ecg w/least 12 lds w/i&r Zainab Rios PA-C Work Phone: Start: 05-18-2023 End: 01-54-5206Ycenmkbhlbbbz metabolic panelZainab Rios PA-C Work Phone: Start: 24-27-0939Pdmzkmfkbl of Products of Conception, Low Cervical, Open ApproachDR MARK ROSALES .Start: 25-66-1199Iqegbtbo section Tiffanie Dukes Start: 32-24-3394Tfjppomy fiberoptic sigmoidoscopy Tiffanie Dukes Start: 00-41-8229Shsgisbhlfm observation [Identifier] in Cervix by Jamaal Walton CNP Work Phone: Start: 55-55-9790Ovduovxd pilonidal cyst/sinus simple Tiffanie Dukes Start: 82-80-0247GwfvpznjohhwYbceheb Dokken AppendectomyAppendectomy( Confirmed )Tiffanie Dukes CholecystectomyFRANCNGOC SON Plan of Treatment DateCare ActivityDetailAuthorStart: 89-63-8424VTtY/Tdap/Td vaccine (2 - Tdap) DTaP/Tdap/Td vaccine (2 - Tdap)[facility]ON [facility]Start: 03-08-2026 End: 38-34-7410Gtudawh encounter procedureNOMS BCP OBStart: 45-21-0975Cgbokxzbvv ScreenDepression ScreenBon [facility] Hospitalart: 07-28-2025 End: 31-24-8629Lgdkith encounter cylqdmdqp21/21/2025 9:30 AM EDT Procedure Visit MATTEO RIVERA [address] [place] [phone] Mark Rosales, DO [address] [place] [address] NOMDaquan MELTONGYNStart: 06-18-2025 End: 54-69-2062Zrcxcwr encounter iyonscduh57/11/2025 10:30 AM EDT Procedure Visit MATTEO RIVERA [address] [place], [id number] Mark Rosales, DO [address] [place] [address] NOMDaquan WALDRONtart: 06-17-2025 End: 81-03-1631Wxvdhwj encounter sauyznnfp18/10/2025 1:00 PM EDT Office Visit MATTEO RIVERA [address] [place] [address] Megha Shaw PA [address] [place] [address] ArrivedAILYN Loree OBGYNComment on above:ArrivedStart: 05-21-2025 End: 54-25-4428BMKMRYGT Lab Routine Pelvic pain in female Encounter for management of menstrual issue Expected: 05/21/2025 (Approximate), Expires: 05/21/2026NOMS HealthcareComment on above:Expected: 05/21/2025 (Approximate), Expires: 05/21/2026Start: 05-21-2025 End: 91-53-3418FX PelvisUS Pelvis w/ TV Imaging Routine Pelvic pain in female Encounter for management of menstrual issue Expected: 05/21/2025, Expires: 05/21/2026NOMS HealthcareComment on above:Expected: 05/21/2025, Expires: 05/21/2026Start: 05-21-2025 End: 87-51-6829Etghclj encounter tpwjeslji36/14/2025 10:20 AM EDT Office Visit MATTEO RIVERA [address] [place] [phone] Mark Rosales DO [address] [place] [address] ArrivedAILYN Loree OBGYNComment on above:ArrivedStart: 88-44-7132Knpsgyidw vaccinationFlu vaccine (Season Ended)Daniel Baker [facility] CenterStart: 04-16-2025 End: 30-30-9598Wbacdzm encounter fybwpfbeu87/10/2025 10:00 AM EDT Office Visit [facility] Gastroenterology [address] [place] [address] Elizabeth Ruiz, [employer]ARE[employer] APPLICATION DEVELOPER - POLICY INTERN [address] [place] [address] 2 week f/u after [facility] GastroenterologyComment on above:2 week f/u after colonStart: 03-20-2025 End: 93-27-7335Euihxbt encounter wgkhxinqv95/13/2025 9:00 AM EDT [facility] [address] [facility] [place], [place] [id number] Janine Funez MD [address] [facility] [place] [address] epic//ptMercGreene Memorial Hospital CT ScanComment on above:epic//pt Start: 03-19-2025 End: 38-99-8828Oflxzpznjyb flx dx w/collj spec when pfrmdCOLONOSCOPY DIAGNOSTIC Blood per rectum 03/19/2025 10:35 AM EDTMLOZ GASTRO CENTERStart: 03-05-2025 End: 85-39-7228Fsjntoh encounter cgyegvpkq48/29/2025 10:00 AM EDT Office Visit [facility] [address] [facility] [phone] Mark Rosales, DO [address] [place] [address] ArrivedNOMS [facility] OBComment on above:ArrivedStart: 57-93-0901Sptvudxh identified in Urine by CultureUrine [facility]burgtart: 60-19-6809CqnlfgpgoMercy Health West Hospitaltart: 14-57-5874Rusxy [facility] CenterStart: 06-11-2024 Radiologic examination of kneeXR knee LT 4V*[facility] Start: 01-67-0681ZH Knee - left 4 ViewsMercy Health West Hospitaltart: 32-52-1063FZSRW-19 Vaccine ( season)COVID-19 Vaccine ( season)Bon [facility] CenterStart: 79-81-8237Vkwoooe referralLake County Memorial [facility] Work Phone: Start: 77-87-0889Nkojzaazy for malignant neoplasm of cervixBon [facility] CenterStart: 99-48-0883Zzpawkqmr vaccinationFlu vaccine (#1)BON [facility]AREStart: 36-35-1922Fjqinwvqk for malignant neoplasm of cervixPap smearBON [facility]: 13-21-7955QItW/Tdap/Td vaccine (1 - Tdap)DTaP/Tdap/Td vaccine (1 - Tdap)[facility]art: 2012 Hepatitis B vaccine (1 of 3 - 19+ 3-dose series)Hepatitis B vaccine (1 of 3 - 19+ 3-dose series)[facility]: 80-40-6081Huefslsdw C screening Hepatitis C screenSentara [facility]: 44-83-5583VKC screeningHIV screenSentara [facility] Beach General Hospital: 65-95-7254Erdacoxhr vaccine (1 of 2 - 13+ 2-dose series)Varicella vaccine (1 of 2 - 13+ 2-dose series)[facility]: 08-40-3554Pomofzbkip ScreenDepression ScreenSentara [facility] Hospital: 13-75-9165Ohqnscpsa vaccine (1 of 2 - 2-dose childhood series) Varicella vaccine (1 of 2 - 2-dose childhood series)[facility] Start: 15-57-7427LMFJZ-19 Vaccine (#1)COVID-19 Vaccine (#1)[facility]OSPITALCBC W Auto Differential panel - BloodCBC and differential Lab Routine Pelvic pain in female Encounter for management of menstrual issue Ordered: 05/21/2025[facility] HealthcareComment on above:Ordered: 05/21/2025HLAMYDIA TRACHOMATIS (GENITO/STI)CHLAMYDIA TRACHOMATIS (GENITO/STI) Lab Routine Pain in female genitalia on intercourse Ordered: 03/05/2025[facility] HealthcareComment on above:Ordered: 03/05/2025 End: 88-32-5912Ab abdomen & pelvis w/contrast materialRAPPAHANNOCK GENERAL HOSPITAL Work Phone: Comment on above:Once for 1 Occurrences starting 05/18/2023 until 05/18/2023 End: 71-54-9631DU Abdomen and Pelvis W contrast [facility]Retreat [facility]' [facility] Comment on above:1 Occurrences starting 03/20/2025 until 03/20/2025ytology Cervical or vaginal smear or scraping studyPap Smear Pathology and Cytology Routine Well woman exam with routine gynecological exam Ordered: 03/05/2025[facility] flux - neutrinity Work Phone: commrrl on above:Ordered: 03/05/2025DHEA-sulfateDHEA- sulfate Lab Routine Pelvic pain in female Encounter for management of menstrual issue Ordered:05/21/2025[facility] HealthcareComment on above:Ordered: 05/21/2025EKG 12 LeadEKG 12 Lead ECG Routine 05/18/2023 8:05 PM EDTB [employer] Endometrial biopsyEndometrial biopsy Procedures Routine Menorrhagia with regular cycle Pelvic pain in female Ordered:07/28/2025[facility] flux - neutrinity Work Phone: comment on above:Ordered: 07/28/2025Follicle stimulating hormoneFollicle stimulating hormone Lab Routine Pelvic pain in female Encounter for management of menstrual issue Ordered: 05/21/2025[facility] HealthcareComment on above:Ordered: 05/21/2025Glucose [Mass/volume] in Serum or PlasmaPOCT glucose Point of Care Testing STAT As Needed until discontinued starting 03/19/2025 [employer] Work Phone: comment on above:As Needed until discontinued starting 03/19/2025hCG, quantitative, pregnancyhCG, quantitative, Lab Routine Pelvic pain in female Encounter for management of menstrual issue Ordered: 05/21/2025[facility] flux - neutrinity Work Phone: comment on above:Ordered: 05/21/2025Hemoglobin A1c/Hemoglobin.total in BloodHemoglobin A1c Lab Routine Pelvic pain in female Encounter for management of menstrual issue Ordered: 05/21/2025[facility] Healthcare Comment on above:Ordered: 05/21/2025Human papilloma virus DNA [Presence] in Unspecified specimen by Probe with amplificationHPV DNA probe, amplified Microbiology Routine Well woman exam with routine gynecological exam Ordered: 03/05/2025[facility] HealthcareComment on above:Ordered: 03/05/2025 End: 47-94-9278PNKSHIYV PACU OXYGEN THERAPY PROTOCOLInitiate PACU Oxygen Therapy Protocol Respiratory Care Routine Continuous until discontinued starting 03/19/2025 OmnigyComment on above:Continuous until discontinued starting 03/19/2025Luteinizing hormoneLuteinizing hormone Lab Routine Pelvic pain in female Encounter for management of menstrual issue Ordered: 05/21/2025 [facility] HealthcareComment on above:Ordered: 05/21/2025Neisseria gonorrhoeae DNA [Presence] in Unspecified specimen by HILDA with probe detectionNeisseria gonorrhea DNA probe, direct Lab Routine Pain in female genitalia on intercourse Ordered: 03/05/2025[facility] HealthcareComment on above:Ordered: 03/05/2025Pathology studySurgical Pathology Lab Routine Blood per rectum Release Upon Ordering for 1 Occurrences starting 03/19/2025on [facility] HealthComment on above:Release Upon Ordering for 1 Occurrences starting 03/19/2025Patient EducationHemorrhoids [facility] Work Phone: Patient referralLake County Memorial Hospital [facility] Work Phone: SURESWAB(R) ADVANCED VAGINITIS PLUS, TMASURESWAB(R) ADVANCED VAGINITIS PLUS, TMA Pathology and Cytology Routine Pain in female genitalia onintercourse Ordered: 03/05/2025[facility] HealthcareComment on above: Ordered: 03/05/2025Thyrotropin [Units/volume] in Serum or PlasmaTSH Lab Routine Pelvic pain in female Encounter for management of menstrual issue Ordered: 05/21/2025[facility] HealthcareComment on above:Ordered: 05/21/2025Thyroxine (T4) free [Mass/volume] in Serum or PlasmaT4, free Lab Routine Pelvic pain in female Encounter for management of menstrual issue Ordered: 05/21/2025[facility] Comment on above:Ordered: 05/21/2025 Immunizations Immunization DateImmunizationNotesCare ProviderFacilityNEGATED: Highlighted row has not occurred!08-77-6418ecacdgksu virus vaccine, unspecified formulation ALEXEI SON 010-4193Fkxydx-PjmvtSelect Medical [facility] Convenient CareNEGATED: Highlighted row has not occurred!13-49-5960HEVN-CoV-2 mRNA (tozinameran 5y-11y) vaccineFRANCNGOC SON 799-5526Fhjrxs-BwypgSelect Medical [facility] Convenient CareNEGATED: Highlighted row has not occurred!07-78-4309xodivkaaa virus vaccine, live, attenuated, for intranasal useTiffanie Dukes [facility] Payers DatePayer CategoryPayerPolicy [id number] [facility] .[id number].960[id number] 2..1.906205.3.579.[id number] 2..1.584606.3.57[id number] 2.1.934079.3.579.[id number] 2..1.800805.3.579.2.76967-46-3265Fggxsae0817467 2..1.638987.3.579.2.92193-32-5093Toszppf8891194 2..1.769847.3.579.2.94658-72-0299Hvhctgn8405751 2..1.087598.3.579.2.36690-05-6573Dfbqvcd6420898 2.16.840.1.824113.3.579.2.54374-47-7997Ovzxqzw7058772 2.16.840.1.747703.3.579.2.73273-96-6577Pyhczdi0275424 2.16840.1.226229.3.579.2.73647-69-0716Dizstmi0687435 2.16840.1.915490.3.579.2.52642-33-5791Cayeakm3258307 2.840.1.074988.3.579.2.76473-43-6200Abaedsv5775438 2.840.1.728847.3.579.2.57543-95-0308Ojfjqts7553349 2.840.1.126336.3.579.2.34346-98-5086Giccawg3375439 2.840.1.293297.3.579.2.47198-66-0536Lbltjrf3916013 2.840.1.703335.3.579.2.88482-20-7766Ekabhha2291654 2.840.1.628768.3.579.2.56663-58-4095Idhhlgm0522371 2.840.1.723590.3.579.2.99644-22-5926Gsoiudw1992243 2.840.1.867696.3.579.2.30644-34-8030Ypwajsb09856401 2.16840.1.171125.3.579.2.93723-21-5466Neezixc332114520 2.16840.1.443136.3.579.2.54344-26-1423Vuovzbp462790147 2.16.840.1.492143.3.579.[id number] 2.16.840.1.889843.3.579.2.95836-72-7850Rlkoqea85099429 2.16.840.1.868813.3.579.2.067841-65-0133Mdzzjps37833952 2.16.840.1.018078.3.579.2.993513-91-8919Ciyvzak74167123 2.16.840.1.973663.3.579.2.801194-40-1540Uxmtrwg19452632 2.16.840.1.477862.3.579.2.147493-32-1413Sywrijm0843758 2.16.840.1.385695.3.579.2.731359-10-1748Tatk-fih50669672946-58-7755Zocddix G3D67280084035-78-3947Vkmgmum4129341008Bmkimwc275968639027 v13043g6-800d-2185-69o5-i0163v35pk98Miuxiud72909352 2.16.840.1.896451.3.579.2.272Jeajnji24724962 2.16.840.1.570095.3.579.2.531 Social History DateTypeDetailFacilityStart: 01-03-2022 End: 03-94-5603Ylscwxa smoking statusEx-smoker (finding)[facility]: 19-35-4204Tmeefdz smoking statusNeverSelect [facility] [place] Start: 02-26-2024 End: 43-05-1249Ljy Assigned At BirthFemalOhio State Health Systemtart: 10-08-2014 End: 27-07-9187Cwtospe of tobacco useCurrent [facility] Start: 10-08-2014 End: 08-85-2738Hejsqgu of tobacco useCigarette SmokerRAPPAH[facility] Start: 03-12-2018 End: 32-76-0493Osavojuvet smoked current (pack per day) - Reported0.3[facility]: 03-[facility]2018 End: 12-76-1491Wnsbrdg use and exposureSmokeless tobacco non-userRAPPAHANNOCK GENERAL HOSPITALStart: 05-18-2023 End: 39-83-9290Nkaajsz intakeCurrent non-drinker of alcohol (finding)[facility]: 03-12-2018 End: 37-04-6620Wbifyre Commentquit 2016[facility]ITALStart: 1995 Sex Assigned At BirthNot on fileRAPPAHANNOCK GENERAL HOSPITALStart: 12-04-2023 End: 10-91-4609Yzdaimb smoking status NHISNever smoked tobacco (finding) [facility]: 27-46-0912Fan Assigned At BirthFemale [facility] Hospitaltart: 02-26-2024 End: 73-05-2204Tytxgpvzx beverage intakeLifetime non-drinker (finding)[facility]Start: 11-18-2012 End: 30-57-8624BkeFwalxh (finding)[facility]Has the electric, gas, oil, or water company threatened to shut off services in your home in past 12MoNoBon [facility] [facility](I/We) worried whether (my/our) food would run out before (I/we) got money to buy more.[facility] Functional Status Nggq[id number] StatusN/[facility]03-13-2024Functional StatusN/[facility] [id number] StatusN/[facility]07-30-2022Functional StatusN/[facility] Clinical Notes 05-06-2022 to 07-28-2025 Note Date & [id number] History of Present illness Narrative* Leta Kapadia [...] on 08/21/[address] [facility]. MEDICATIONS Current Outpatient Medications Medication Instructions metFORMIN [...] nursing note reviewed. Exam conducted with a echocardiography radiology technologist present. Vitals: Estimated body mass index is [...] reviewed, and patient is to proceed to [facility] OR. EMBX: Patient was placed in [...] of: Mark Rosales DO documented in this encounterJohn J. Pershing VA Medical [id number] History of Present illness Narrative* MIO Cabral [...] behalf of MIO Cabral documented in this encounterJohn J. Pershing VA Medical [id number] History of Present illness Narrative* Frieda Swan, DERRELL - 05/21/2025 10:20 AM EDT Reason for Appointment: Patient ID: Prudencio Jaramillo is a 29 y.o. female who presents for Hospital Follow-up (Pt present was seen at [facility] on 03/20/2025 for left quad abdominal [...] and was instructed to be seen by TONG SETTER. Patient voiced that she does have pelvic [...] of: Mark Rosales DO documented in this encounterJohn J. Pershing VA Medical [id number] Hospital Discharge instructions* Discharge Instructions* Jazmin Manuel [...] your doctor if you can take an qejy-ssz-viutyye medicine. Keep the anal area clean, but [...] Where can you learn more? Go to https://www.Gogobot.net/patientEd and enter F228 to learn more about Hemorrhoids: Care Instructions. Current as of: July 26, 2024 Content Version: 14.5 Arachno. Care instructions adapted under license by [employer]. If you have questions about a medical condition or this instruction, always ask your healthcare professional. [email or web address], disclaims any warranty or liability for your use of this information. * Attachments The following attachments cannot be sent through Care Everywhere. * Colonoscopy: Post op (Nigerien) documented in this encounterBon [facility] History of Present illness Narrative* Frieda Swan [...] Diagnosis Date Anxiety BV (bacterial vaginosis) Depression ([facility]) S/P section Syncope Vaginal discharge HISTORY PAST MEDICAL HISTORY SOCIAL HISTORY Past Medical History: Diagnosis Date Anxiety BV (bacterial vaginosis) Depression ([facility]) S/P section STD exposure Syncope Vaginal discharge [...] nursing note reviewed. Exam conducted with a echocardiography radiology technologist present. Vitals: Estimated body mass index is [...] of: Mark Rosales DO documented in this encounterJohn J. Pershing VA Medical [id number] Evaluation + Plan note Extracted from:Title:ED NoteAuthor:Drake [...] PRN Nausea/Vomiting, # 12 tab(s), Refills(s) 0, Pharmacy:[facility]/pharmacy #[id number], 155, cm, 11/23/24 3:07:00 EST, Height/Length [...] Diagnostic Tests Pending * Urine Culture 11/23/24 [facility] [id number] Hospital Discharge instructions Patient Education 11/23/2024 05:18:31 [...] oral rehydration solution (ORS). This is an lfyf-leq-ycrloaj medicine that helps return your body to [...] regular sports drinks. ?Avoid alcohol. Eat bland, otnw-qk-fnyvik foods in small amounts as you are able. These foods include bananas, applesauce, rice, lean meats, toast, and crackers. Avoid spicy or fatty foods. Medicines Take cbkf-hjn-chuximj and prescription medicines only as told by your health care provider. If you were prescribed antibiotics, take them as told by your health care provider. Do not stop using the antibiotic even if you start to feel better. General instructions Wash your hands often using soap and water for at least 20 seconds. If soap and water are not available, use hand sleeve wheel maker. Others in the household should wash their [...] provider. Document Revised: 03/13/2023 Document Reviewed: 03/13/2023 [employer] Patient Education 2023 [employer]. 11/23/2024 05:18:31 Nausea and Vomiting, Adult Nausea [...] water added (diluted fruit juice). Eat bland, nuus-xh-gekieh foods in small amounts as you are able. These foods include bananas, applesauce, rice, lean meats, toast, and crackers. Avoid fluids that contain a lot of sugar or caffeine, such as energy drinks, sports drinks, and soda. Avoid alcohol. Avoid spicy or fatty foods. General instructions Take omer-pzg-hkcgkat and prescription medicines only as told by your health care provider. Drink enough fluid to keep your urine pale yellow. Wash your hands often using soap and water for at least 20 seconds. If soap and water are not available, use hand sleeve wheel maker. Make sure that everyone in your household [...] eating and drinking to prevent dehydration. Take jpjr-fww-cxrmiez and prescription medicines only as told by [...] provider. Document Revised: 03/31/2022 Document Reviewed: 03/31/2022 [employer] Patient Education 2023 [employer]. 11/23/2024 05:18:31 Near-Syncope Near-Syncope Near-syncope is when [...] Follow these instructions at home: Medicines Take obrd-pdi-vemwfbi and prescription medicines only as told by [...] provider. Document Revised: 02/02/2022 Document Reviewed: 02/02/2022 [employer] Patient Education 2023 [employer]. Follow Up Care 11/23/2024 02:58:09 With:ELIZABETH CRUZ Address: [place] [address]- Business (1) When:11/26/2024 Comments:Return to the emergency room if your vomiting recurs or any new symptoms. [facility] 02-16-2025 NoteED Patient Education Note Gastroenterology Nausea [...] added (diluted fruit juice). ??? Eat bland, ajtu-jh-ratvto foods in small amounts as you are able. These foods include bananas, applesauce, rice, lean meats, toast, and crackers. ??? Avoid fluids that contain a lot of sugar or caffeine, such as energy drinks, sports drinks, andsoda. ??? Avoid alcohol. ??? Avoid spicy or fatty foods. General instructions ??? Take icuu-ehn-beyvccf and prescription medicines only as told by your health care provider. ??? Drink enough fluid to keep your urine pale yellow. ??? Wash your hands often using soap and water for at least 20 seconds. If soap and water are not available, use hand sleeve wheel maker. ??? Make sure that everyone in your [...] and drinking to prevent dehydration. ??? Take rnvg-pso-ewaxcmw and prescription medicines only as told by [...] provider. Document Revised: 03/31/2022 Document Reviewed: 03/31/2022 [employer] Patient Education ? 2023 [employer] Infectious Disease Diarrhea, Adult Diarrhea is [...] home: Eating and drinking (more content not included)...[facility]03-13-2024 Hospital Discharge instructions Patient Education 12/19/2023 13:21:22 [...] numbers. This can be done either in [place]ien ([place] or metric measurements. Note that charts and online BMI calculators are available to help you find your BMI quickly and easily without having to do these calculations yourself. To calculate your BMI in [place]ien ([place] measurements: 1.Measure your weight in pounds [...] Centers for Disease Control and Prevention: www.cdc.gov [employer] Heart Association: www.heart.org National Heart, Lung, and Blood [place]: www.nhlbi.nih.gov Summary Body mass index (BMI) is a number that is calculated from a person's weight and height. BMI may help estimate how much of a person's weight is composed of fat. BMI can help identify thosewho may be at higher risk for certain medical problems. BMI can be measured using Nigerien measurements or metric measurements. BMI charts are used to identify whether you are underweight, normal weight, overweight, or obese. This information is not intended to replace advice given to you by your health care provider. Make sure you discuss any questions you have with your health care provider. Document Revised: 06/16/2020 Document Reviewed: 04/23/2020 [employer] Patient Education 2022 [employer]. 12/19/2023 13:21:18 Otitis Media, Adult, Amxq-mc-Cbua Otitis Media, Adult Otitis media is a [...] pain. Follow these instructions at home: Take dxuf-jin-wqsyfnv and prescription medicines only as told by [...] provider. Document Revised: 01/02/2022 Document Reviewed: 01/02/2022 [employer] Patient Education 2022 [employer] 12/19/2023 13:21:15 Pharyngitis, Kzje-zc-Mkxo Pharyngitis Pharyngitis is a sore throat (pharynx). [...] Follow these instructions at home: Medicines Take uspd-adv-ocoqhdf and prescription medicines only as told by [...] and water are not available, use hand sleeve wheel maker. Do not touch your eyes, nose, or [...] provider. Document Revised: 12/21/2021 Document Reviewed: 12/21/2021 [employer] Patient Education 2022 [employer]. Follow Up Care 12/19/2023 11:23:19 With:ELIZABETH CRUZ CNP Address: [place] [address]- When: Unknown [facility] 03-13-2024 Evaluation + Plan note Diagnostic Tests Pending * Group A Strep by PCR 12/19/23 [facility]08-17-2023 History of Present illness Narrative* Antoinette Heard RN - 05/24/2023 10:17 AM EDT PAT call placed to patient, reviewing meds, history, allergies PAT instruction sheet. [facility] Discharge instructions Patient Education 04/14/2023 14:12:18 [...] are safe for you. General instructions Take gckl-diy-kwazqtm and prescription medicines only as told by [...] provider. Document Revised: 01/31/2021 Document Reviewed: 01/31/2021 [employer] Patient Education 2022 [employer] 04/14/2023 14:12:18 RICE Therapy for Routine [...] limityour activities and whether you should start jduuj-fv-yvhocq exercises for your injury. Ice Ice your [...] provider. Document Revised: 11/29/2020 Document Reviewed: 06/14/2018 [employer] Patient Education 2020 [employer]. Follow Up Care 04/14/2023 13:31:33 [facility] Address: [address] [place] [address] [place] [address] Business (1) When:04/17/2023 14:10:40 With:Carol Gutierrez Address: [address] [place] [address], [address] [place] [address] Business (1) When:Within 3 Day(s) [facility]07-08-2023 Evaluation + Plan noteExtracted from: Title:ED NoteAuthor:Palma VICTORIA, JansenDate:04/14/23 Wrist sprain (S63.509A: Unsp ecified sprain of unspecified wrist, initial encounter) Orders: XR Wrist 3+ Views Left [facility]02-02-2023 NoteOP Note OPERATION DATE: 11/09/2022 PROCEDURE: Bilateral laparoscopic salpingectomy. PREOPERATIVE DIAGNOSIS: Multiparity, request for sterilization. POSTOPERATIVE DIAGNOSIS: Multiparity, request for sterilization. ANESTHESIA: General. SURGEON: Mark Rosales D.O. [employer]ED [employer] EMBOSSING PRESS OPERATOR: JAMES Sheets URINE OUTPUT: Yellow and [...] lap and needle counts were correct x2.[facility] 11-09-2022 NoteOPERATIVE NOTE OPERATION DATE: 12/02/2022 PROCEDURE: Bilateral laparoscopic salpingectomy. PREOPERATIVE DIAGNOSIS: Multiparity, request for sterilization. POSTOPERATIVE DIAGNOSIS: Multiparity, request for sterilization. ANESTHESIA: General. SURGEON: Mark Rosales D.O. [employer] EMBOSSING PRESS OPERATOR: JAMES Sheets URINE OUTPUT: Yellow and [...] lap and needle counts were correct x2.[facility] 09-18-2022 NoteDISCHARGE SUMMARY DISCHARGE DATE: 10/02/2022 PRIMARY [...] pain free and no longer on narcotics.[facility] [id number] NoteDISCHARGE DATE: 09/20/2022 PRIMARY DIAGNOSES: 1. Intrauterine [...] pain free and no longer on narcotics.[facility] [id number] NoteOPERATIVE NOTE OPERATION DATE: 09/18/2022 PROCEDURE: Repeat low transverse section. PREOPERATIVE DIAGNOSIS: 1. Intrauterine at 39 weeks. 2. Morbid obesity. 3. Previous . POSTOPERATIVE DIAGNOSIS: 1. Intrauterine at 39 weeks. 2. Morbid obesity. 3. Previous . ANESTHESIA: Spinal with Duramorph. SURGEON: Mark Rosales D.O. [employer] EMBOSSING PRESS OPERATOR: JAMES URINE OUTPUT: Yellow and clear. [...] to the Recovery Room in stable condition.[facility] [id number] Evaluation + Plan noteExtracted from:Title:ED NoteAuthor:Tiffanie Dukes [...] Future Scheduled Tests Laboratory* Rapid COVID Antigen ([facility]) 01/03/22 [facility]07-30-2022 Hospital Discharge instructions Patient Education 05/06/2022 02:32:57 Urinary Tract Infection, Adult, Zyva-ym-Ribq Urinary Tract Infection, Adult A urinary tract [...] Follow these instructions at home: Medicines Take kbnf-hgw-hoifiod and prescription medicines only as told by [...] 03/12/2009 Document Revised: 09/11/2019 Document Reviewed: 04/03/2019 [employer] Patient Education 2020 [employer]. 05/06/2022 02:32:57 Abdominal Pain During , Tnjr-kl-Bqvw Abdominal Pain During Belly (abdominal) pain is [...] keep your pee (urine) pale yellow. Take yawq-ptg-vwqbwbe and prescription medicines only as told by [...] 09/12/2010 Document Revised: 01/12/2020 Document Reviewed: 12/27/2017 [employer]Works Patient Education 2020 [employer]. Follow Up Care 05/06/2022 00:57:48 With:Shanique Roman Address: [address] [place] [phone] When:05/09/2022 Comments:Take the antibiotics as prescribed you have completed the course. You can use the nausea medicationevery 6 hours as needed for nausea and vomiting. Take the Pepcid daily for the next 10 days. Pleasefollow-up with your ACCOUNTS RECEIVABLE ASSOCIATE and primary care doctor in the next 2 to 3 days for reevaluation. Pleasereturn the ED for any new or worsening symptoms. [facility]* Diagnosis Calculus of gallbladder without cholecystitis without obstruction- Primary Calculus of gallbladder without mention of cholecystitis or obstruction documented [facility] this [facility] Diagnosis Onset Date Resolution Status BMI 50.0-59.9, adult acuteGAD (generalized anxiety disorder)acuteMDD (major depressive disorder)acute Obesity, morbid, BMI 50 or higheracute [facility] Work Phone: evaluation note* Diagnosis Onset Date Resolution Status BMI 50.0-59.9, adult acuteGAD (generalized anxiety disorder)acuteMDD (major depressive disorder)acute Obesity, morbid, BMI 50 or higheracuteBMI 50.0-59.9, adultacuteGAD (generalized anxiety disorder)acuteMDD (major depressive disorder)acuteObesity, morbid, BMI 50 or higheracute [facility] Work Phone: evaluation note* Diagnosis Onset Date Resolution Status Knee pain, left noneactive [facility] Work Phone: evaluation note* Diagnosis Onset Date Resolution Status Left knee sprain noneactiveKnee pain, leftnoneactive [facility] Work Phone: Evaluation noteNo assessment information available [facility] Work Phone: evalugrual note* Diagnosis Blood per rectum- Primary Hemorrhage of rectum and anus documented [facility] Diagnosis Blood per rectum Hemorrhage of rectum and anus Left lower quadrant abdominal pain documented [facility]* Diagnosis Well woman exam with routine gynecological exam Routine gynecological examination Pain in female genitalia on intercourse Dyspareunia Upper back pain Unspecified backache documented in this encounter [facility]* Diagnosis Hospital discharge follow-up Other follow-up examination Cyst of right ovary Other and unspecified ovarian cyst Pelvic pain in female Unspecified symptom associated with female genital organs Encounter for management of menstrual issue Encounter for weight management documented in [facility] encounter [facility]* Diagnosis Weight gain Other symptoms concerning nutrition, metabolism, and development Encounter to discuss test results Other specified counseling Encounter for weight management documented in this encounter [facility]* Diagnosis Pre-op examination Menorrhagia with regular cycle Abnormal uterine bleeding Unspecified disorder of menstruation and other abnormal bleeding from female genital tract Pelvic pain in female Unspecified symptom associated with female genital organs Cyst of right ovary Other and unspecified ovarian cyst documented in this encounter [facility] CenterHospital course Narrative No data available for this section [facility] Discharge instructions* Attachments The following attachments cannot be sent through Care Everywhere. * Gallstones (Nigerien) [facility] No data available for this section [facility] No data available for this section [facility] for [facility] (narrative)No reason for referral information availableLake [facility] Work Phone: Reason for visit Narrative* Auth/CertSpecialty Diagnoses / ProceduresReferred By ContactReferred To Contact Diagnoses Blood per rectum Procedures AZ COLONOSCOPY FLX DX W/COLLJ SPEC WHEN PFRMD AZ COLONOSCOPY W/BIOPSY SINGLE/MULTIPLE AZ COLSC FLX W/RMVL OF TUMOR POLYP LESION SNARE TQ COLONOSCOPY DIAGNOSTIC Janine Funez MD [address] [facility] [place] [address] Phone: tel: fax: [facility] [address] [place] [address] Referral IDStatusReasonStart DateExpiration DateVisits RequestedVisits [id number] [facility] for visit Narrative* Imaging (Routine) - Closed SpecialtyDiagnoses / ProceduresReferred By ContactReferred To ContactRadiology Diagnoses Blood per rectum Left lower quadrant abdominal pain Procedures CT ABDOMEN PELVIS W IV CONTRAST Additional Contrast? None Janine Funez MD [address] [place] [address] Phone: tel: fax: Referral Rhina DateExpiration DateVisits RequestedVisits [id number]/ [facility] Summary Purpose Family History No Family [...] section and content) DATE CREATED AUTHOR 04/28/2019 [facility] DATE CREATED AUTHOR AUTHOR'S ORGANIZ ATION 12/14/2022 [facility] DATE CREATED AUTHOR AUTHOR'S ORGANIZ ATION 11/24/2024 [facility] DATE CREATED AUTHOR AUTHOR'S ORGANIZ ATION 11/26/2024 [facility] DATE CREATED AUTHOR AUTHOR'S ORGANIZ ATION 03/11/2025 [facility] DATE CREATED AUTHOR AUTHOR'S ORGANIZ ATION 03/27/2025 [facility] DATE CREATED AUTHOR AUTHOR'S ORGANIZ ATION 05/25/2025 [facility] DATE CREATED AUTHOR AUTHOR'S ORGANIZ ATION 07/29/2025 [facility] DATE CREATED AUTHOR AUTHOR'S ORGANIZ ATION 07/31/2025 [facility] Care Team (unrecognized sect ion [...] Mirza Mcmullen APRN - ASHWIN PCP - GeneralRinggold County Hospitally Medicine11/28/17Team MemberRelationshipSpecialtyStart DateEnd Date Bailee Myers DO [address] [place] [address] PCP - GeneralFamily Medicine03/20/25 Team Status: Inactive Member Role/Relationship Status Dates Mark Rosales DO Attending Provider Active Start : July 28, 2025 End: July 28, 2025 Reason for Visit (unrecogniz ed section and content) ReasonCommentsChest PainUnder left breast that radiates to the right breastLoss of ConsciousnessPer EMS about 10 secondsReasonOhioHealth [facility] Center Women VisitReason CommentsHospital Follow-upPt present was seen at [facility] on 03/20/2025 for left quad abdominal [...] 2126, Other * 2126 (Given - Provider: Manjula Joiner) Medication Order//09/2025 sodium chloride flush 0.9 [...] IntraVENous, PRN, Starting on Casandra 03/19/25 at 0951, Until Discontinued, Line [facility], [...] BE BASED ON THE PRIMARY CLINICAL RECORDS. [facility] [place] provides no warranty or guarantee of the accuracy or completeness of information in this document.
== END 2025-08-24 15:45 | disposition home or self-care (01) ==
PROVIDERS: Physician Assistant; Emergency Provider Emergency Medicine; PCP Family Medicine
DX: R42 Dizziness and giddiness (principal); R53.83 Other fatigue; Z98.890 Other specified postprocedural states; Z87.891 Personal history of nicotine dependence
CPT/HCPCS: 36415; 80053; 81001; 83735; 84100; 84484; 85025; 87086; 93005; 99284; 99285